=== PATIENT | female | born 1950 | race Caucasian/White ===

== ENCOUNTER 2019-07-01 09:37 | Observation (INO) | payer MEDICARE, OTHER ==
[2019-07-01] MEDS ORDERED: SODIUM CHLORIDE 0.9% 500 ML 500 ML IV STA (09:40)
[2019-07-01] MEDS ORDERED: SODIUM CHLORIDE 0.9% 1,000 ML IV ONE (09:46)
[2019-07-01 10:09] LABS: Glucose,Whole Blood 109 mg/dL (75-99)
[2019-07-01 10:18] LABS: Basophils # (A) 0.1 k/uL (0-0.2); Basophils % (A) 1 %; Eosinophils # (A) 0.2 k/uL (0-0.7); Eosinophils % (A) 3 %; HCT 46.3 % (34.0-46.0); HGB 15.2 gm/dL (11.4-16.0); Lymphocytes # (A) 3.1 k/uL (1.0-4.8); Lymphocytes % (A) 33 %; MCH 27.7 pg (25.0-35.0); MCHC 32.7 g/dL (31.0-37.0); MCV 84.7 fL (80.0-100.0); Mean Platelet Volume 7.2; Monocytes # (A) 0.5 k/uL (0-1.0); Monocytes % (A) 6 %; Neutrophils # (A) 5.2 k/uL (1.3-7.7); Neutrophils % (A) 56 %; Platelet Count 333 k/uL (150-450); RBC 5.47 m/uL (3.80-5.40); RDW 12.8 % (11.5-15.5); WBC 9.2 k/uL (3.8-10.6)
--- NOTE | 2019-07-01 10:27 | XR ---
EXAMINATION TYPE: XR chest 2V DATE OF EXAM: 07/01/2019 COMPARISON: 03/02/2015 HISTORY: Shortness of breath and dizziness TECHNIQUE: Frontal and lateral views of the chest are obtained. FINDINGS: There is no focal air space opacity, pleural effusion, or pneumothorax seen. The cardiac silhouette size is within normal limits. The osseous structures are intact. Cholecystectomy clips a re seen. Minimal degenerative change of the spine. Surgical clips are seen within the left breast. IMPRESSION: No acute cardiopulmonary process.
[2019-07-01 10:33] LABS: Partial Thromboplastin Time 22.1 sec (22.0-30.0); Prothrombin Time 10.4 sec (9.0-12.0)
[2019-07-01 10:35] LABS: Albumin 4.6 g/dL (3.5-5.0); Calcium 10.5 mg/dL (8.4-10.2); Phosphorus 3.6 mg/dL (2.5-4.5); Potassium 4.5 mmol/L (3.5-5.1); Total Bilirubin 0.9 mg/dL (0.2-1.3); Total Protein 7.7 g/dL (6.3-8.2)
[2019-07-01 11:02] VITALS: RESP 18
[2019-07-01] MEDS ORDERED: NALOXONE 0.4 MG/ML 1 ML VIAL IV PRN (11:41)
--- NOTE | 2019-07-01 11:42 | ED ---
Weakness HPI - General Chief complaint: Weakness Stated complaint: weakness Time Seen by Provider: 07/01/19 09:40 Source: patient Mode of arrival: ambulatory Limitations: no limitations - History of Present Illness Initial comments: 68-year-old female with history of breast cancer in remission presenting today for chief complaint of generalized weakness episode of syncope. Patient states that she was out helping load a truck when she felt really lightheaded and sat in the car hospital since she was syncopal episode he denies any convulsions. Patient had a chest pain but states she was slightly short of breath when she had the weakness just prior to the syncope she states that has resolved. Patient denies any leg swelling or hemoptysis nausea vomiting epigastric jaw or arm pain. Patient denies experiencing this before. Patient states she did not have anything to drink all day. Patient denies any other complaints denies any fevers denies any dysuria urgency frequency or recent infections. Remaining review of systems negative upon arrival patient appears well no signs of acute distress - Related Data Home Medications Medication Instructions Recorded Confirmed Simvastatin [Zocor] 20 mg PO HS 07/01/19 07/01/19 Allergies Allergy/AdvReac Type Severity Reaction Status Date / Time bee venom protein (honey bee) Allergy Anaphylaxis Verified 07/01/19 12:30 Review of Systems ROS Statement: Those systems with pertinent positive or pertinent negative responses have been documented in the HPI. ROS Other: All systems not noted in ROS Statement are negative. Past Medical History Past Medical History: Cancer Additional Past Medical History / Comment(s): Do not use left arm for IV or BP- left breast CA with lumpectomy and radiation and chemo. History of Any Multi-Drug Resistant Organisms: None Reported Past Surgical History: Breast Surgery, Tonsillectomy Additional Past Surgical History / Comment(s): L breast lumpectomy 2002. Additional Past Anesthesia/Blood Transfusion Reaction / Comment(s): Pt has never recieved blood. Past Psychological History: No Psychological Hx Reported Smoking Status: Former smoker Past Alcohol Use History: Occasional Past Drug Use History: None Reported - Past Family History Father Family Medical History: Myocardial Infarction ([place]) Additional Family Medical History / Comment(s): Father had a [place] in his 60's. He from a post op hip infection at age 73 yrs. no gallbladder disease Mother Family Medical History: Eye Disorder, Hypertension Additional Family Medical History / Comment(s): Mother had glaucoma. She at age 82 yrs. General Exam - General Exam Comments Initial Comments: General: The patient is awake and alert, in no distress Eye: +3 mm pupils are equal, round and reactive to light, extra-ocular movements are intact. No nystagmus. There is normal conjunctiva bilaterally. No signs of icterus. Ears, nose, mouth and throat: There are moist mucous membranes and no oral lesions. Neck: The neck is supple, there is no tenderness or JVD. Cardiovascular: There is a regular rate and rhythm. No murmur, rub or gallop is appreciated. Respiratory: Lungs are clear to auscultation, respirations are non-labored, breath sounds are equal. No wheezes, stridor, rales, or rhonchi. Gastrointestinal: Soft, non-distended, non-tender abdomen without masses or organomegaly noted. There is no rebound or guarding present. No pulsatile masses Musculoskeletal: Normal ROM, no tenderness. Strength 5/5. Sensation intact. Radial and DP pulses equal bilaterally 2+. Neurological: A&O x 3. CN II-XII intact grossly, There are no obvious motor or sensory deficits. Coordination appears grossly intact. Speech is normal. Skin: Skin is warm and dry and no rashes or lesions are noted. No LE edema. Psychiatric: Cooperative, appropriate mood & affect, normal judgment. Limitations: no limitations Course Vital Signs 07/01/19 07/01/19 07/01/19 09:37 09:49 10:00 Temperature 95 F L 97.7 F Pulse Rate 56 L 59 L 53 L Respiratory 20 16 16 Rate Blood Pressure 73/48 116/66 116/66 O2 Sat by Pulse 98 92 L 93 L Oximetry 07/01/19 07/01/19 07/01/19 11:01 11:56 12:47 Temperature 97.7 F Pulse Rate 57 L 75 75 Respiratory 18 18 18 Rate Blood Pressure 116/90 123/70 123/70 O2 Sat by Pulse 96 97 97 Oximetry EKG Findings - EKG Comments: EKG Findings:: Ventricular rate 52 bpm, NM interval 162 ms, QRS duration 72 ms, QT/QTC 432/411 milliseconds. This is sinus bradycardia. No ST elevation or depression. No obvious signs of acute ischemia. Medical Decision Making - Medical Decision Making 68-year-old female presenting today for chief complaint of generalized weakness, syncope. Patient was working outside when she felt weak and then had a syncopal episode while sitting down in the car per . No seizure activity. No focal neurological deficits on physical examination. Patient has no obvious murmur no lower external swelling or secondary signs of acute heart failure. Lungs clear. No vascular congestion on chest x-ray. Troponin negative. Patient does not have tachycardia and of current shortness of breath. No calf swelling. Given patient's age her presentation with hypotension, I feel inpatient observation and echo are appropriate at this time. patient will be admitted for cardiology consultation. Patient agreeable to admission. Spoke with Dr. Bach who is agreeable to admission and spoke with admitting provider. - Lab Data Result diagrams: 07/01/19 09:50 07/01/19 09:50 Lab Results 07/01/19 07/01/19 07/01/19 Range/Units 09:50 09:50 09:50 WBC 9.2 (3.8-10.6) k/uL RBC 5.47 H (3.80-5.40) m/uL Hgb 15.2 (11.4-16.0) gm/dL Hct 46.3 H (34.0-46.0) % MCV 84.7 (80.0-100.0) fL MCH 27.7 (25.0-35.0) pg MCHC 32.7 (31.0-37.0) g/dL RDW 12.8 (11.5-15.5) % Plt Count 333 (150-450) k/uL Neutrophils % 56 % Lymphocytes % 33 % Monocytes % 6 % Eosinophils % 3 % Basophils % 1 % Neutrophils # 5.2 (1.3-7.7) k/uL Lymphocytes # 3.1 (1.0-4.8) k/uL Monocytes # 0.5 (0-1.0) k/uL Eosinophils # 0.2 (0-0.7) k/uL Basophils # 0.1 (0-0.2) k/uL PT 10.4 (9.0-12.0) sec INR 1.0 (<1.2) APTT 22.1 (22.0-30.0) sec Sodium (137-145) mmol/L Potassium (3.5-5.1) mmol/L Chloride (98-107) mmol/L Carbon Dioxide (22-30) mmol/L Anion Gap mmol/L BUN (7-17) mg/dL Creatinine (0.52-1.04) mg/dL Est GFR (CKD-EPI)AfAm (>60 ml/min/1.73 sqM) Est GFR (CKD-EPI)NonAf (>60 ml/min/1.73 sqM) Glucose (74-99) mg/dL POC Glucose (mg/dL) (75-99) mg/dL POC Glu Pony Ride Attendant ID Plasma Lactic Acid Bereket (0.7-2.0) mmol/L Calcium (8.4-10.2) mg/dL Phosphorus (2.5-4.5) mg/dL Magnesium (1.6-2.3) mg/dL Total Bilirubin (0.2-1.3) mg/dL AST (14-36) U/L ALT (4-34) U/L Alkaline Phosphatase (38-126) U/L Troponin I (0.000-0.034) ng/mL NT-Pro-B Natriuret Pep pg/mL Total Protein (6.3-8.2) g/dL Albumin (3.5-5.0) g/dL Urine Color Urine Appearance (Clear) Urine pH (5.0-8.0) Ur Specific Polo (1.001-1.035) Urine Protein (Negative) Urine Glucose (UA) (Negative) Urine Ketones (Negative) Urine Blood (Negative) Urine Nitrite (Negative) Urine Bilirubin (Negative) Urine Urobilinogen (<2.0) mg/dL Ur Leukocyte Esterase (Negative) Urine RBC (0-5) /hpf Urine WBC (0-5) /hpf Ur Squamous Epith Cells (0-4) /hpf Urine Bacteria (None) /hpf Urine Mucus (None) /hpf Influenza Type A RNA Not Detected (Not Detectd) Influenza Type B (PCR) Not Detected (Not Detectd) 07/01/19 07/01/19 07/01/19 Range/Units 09:50 09:50 09:50 WBC (3.8-10.6) k/uL RBC (3.80-5.40) m/uL Hgb (11.4-16.0) gm/dL Hct (34.0-46.0) % MCV (80.0-100.0) fL MCH (25.0-35.0) pg MCHC (31.0-37.0) g/dL RDW (11.5-15.5) % Plt Count (150-450) k/uL Neutrophils % % Lymphocytes % % Monocytes % % Eosinophils % % Basophils % % Neutrophils # (1.3-7.7) k/uL Lymphocytes # (1.0-4.8) k/uL Monocytes # (0-1.0) k/uL Eosinophils # (0-0.7) k/uL Basophils # (0-0.2) k/uL PT (9.0-12.0) sec INR (<1.2) APTT (22.0-30.0) sec Sodium 138 (137-145) mmol/L Potassium 4.5 (3.5-5.1) mmol/L Chloride 103 (98-107) mmol/L Carbon Dioxide 24 (22-30) mmol/L Anion Gap 11 mmol/L BUN 10 (7-17) mg/dL Creatinine 0.86 (0.52-1.04) mg/dL Est GFR (CKD-EPI)AfAm 82 (>60 ml/min/1.73 sqM) Est GFR (CKD-EPI)NonAf 71 (>60 ml/min/1.73 sqM) Glucose 112 H (74-99) mg/dL POC Glucose (mg/dL) (75-99) mg/dL POC Glu Pony Ride Attendant ID Plasma Lactic Acid Bereket 1.6 (0.7-2.0) mmol/L Calcium 10.5 H (8.4-10.2) mg/dL Phosphorus 3.6 (2.5-4.5) mg/dL Magnesium 2.0 (1.6-2.3) mg/dL Total Bilirubin 0.9 (0.2-1.3) mg/dL AST 24 (14-36) U/L ALT 14 (4-34) U/L Alkaline Phosphatase 86 (38-126) U/L Troponin I <0.012 (0.000-0.034) ng/mL NT-Pro-B Natriuret Pep pg/mL Total Protein 7.7 (6.3-8.2) g/dL Albumin 4.6 (3.5-5.0) g/dL Urine Color Urine Appearance (Clear) Urine pH (5.0-8.0) Ur Specific Polo (1.001-1.035) Urine Protein (Negative) Urine Glucose (UA) (Negative) Urine Ketones (Negative) Urine Blood (Negative) Urine Nitrite (Negative) Urine Bilirubin (Negative) Urine Urobilinogen (<2.0) mg/dL Ur Leukocyte Esterase (Negative) Urine RBC (0-5) /hpf Urine WBC (0-5) /hpf Ur Squamous Epith Cells (0-4) /hpf Urine Bacteria (None) /hpf Urine Mucus (None) /hpf Influenza Type A RNA (Not Detectd) Influenza Type B (PCR) (Not Detectd) 07/01/19 07/01/19 07/01/19 Range/Units 09:50 10:06 12:15 WBC (3.8-10.6) k/uL RBC (3.80-5.40) m/uL Hgb (11.4-16.0) gm/dL Hct (34.0-46.0) % MCV (80.0-100.0) fL MCH (25.0-35.0) pg MCHC (31.0-37.0) g/dL RDW (11.5-15.5) % Plt Count (150-450) k/uL Neutrophils % % Lymphocytes % % Monocytes % % Eosinophils % % Basophils % % Neutrophils # (1.3-7.7) k/uL Lymphocytes # (1.0-4.8) k/uL Monocytes # (0-1.0) k/uL Eosinophils # (0-0.7) k/uL Basophils # (0-0.2) k/uL PT (9.0-12.0) sec INR (<1.2) APTT (22.0-30.0) sec Sodium (137-145) mmol/L Potassium (3.5-5.1) mmol/L Chloride (98-107) mmol/L Carbon Dioxide (22-30) mmol/L Anion Gap mmol/L BUN (7-17) mg/dL Creatinine (0.52-1.04) mg/dL Est GFR (CKD-EPI)AfAm (>60 ml/min/1.73 sqM) Est GFR (CKD-EPI)NonAf (>60 ml/min/1.73 sqM) Glucose (74-99) mg/dL POC Glucose (mg/dL) 109 H (75-99) mg/dL POC Glu Pony Ride Attendant ID Lori Shaikh Plasma Lactic Acid Bereket (0.7-2.0) mmol/L Calcium (8.4-10.2) mg/dL Phosphorus (2.5-4.5) mg/dL Magnesium (1.6-2.3) mg/dL Total Bilirubin (0.2-1.3) mg/dL AST (14-36) U/L ALT (4-34) U/L Alkaline Phosphatase (38-126) U/L Troponin I (0.000-0.034) ng/mL NT-Pro-B Natriuret Pep 104 pg/mL Total Protein (6.3-8.2) g/dL Albumin (3.5-5.0) g/dL Urine Color Light Yellow Urine Appearance Clear (Clear) Urine pH 6.5 (5.0-8.0) Ur Specific Polo 1.008 (1.001-1.035) Urine Protein Negative (Negative) Urine Glucose (UA) Negative (Negative) Urine Ketones Negative (Negative) Urine Blood Negative (Negative) Urine Nitrite Negative (Negative) Urine Bilirubin Negative (Negative) Urine Urobilinogen <2.0 (<2.0) mg/dL Ur Leukocyte Esterase Large H (Negative) Urine RBC 1 (0-5) /hpf Urine WBC 13 H (0-5) /hpf Ur Squamous Epith Cells 5 H (0-4) /hpf Urine Bacteria Occasional H (None) /hpf Urine Mucus Rare H (None) /hpf Influenza Type A RNA (Not Detectd) Influenza Type B (PCR) (Not Detectd) Disposition Clinical Impression: Syncope, Hypotension, Generalized weakness Disposition: ADMITTED IP TO THIS HOSP Condition: Stable Is patient prescribed a controlled substance at d/c from ED?: No Time of Disposition: 11:41 Decision to Admit Reason: Admit from EC Decision Date: 07/01/19 Decision Time: 11:41
[2019-07-01] MEDS: SODIUM CHLORIDE 0.9% 1,000 ML IV SCH (11:58)
[2019-07-01 12:56] LABS: Appearance,Urine Clear (Clear); Bacteria,Urine Occasional /hpf; Bilirubin,Urine Negative (Negative); Blood,Urine Negative (Negative); Color,Urine Light Yellow; Glucose,Urine (UA) Negative (Negative); Ketones,Urine Negative (Negative); Leukocyte Esterase,Urine Large (Negative); Mucus,Urine Rare /hpf; Nitrite,Urine Negative (Negative); PH, Urine 6.5 (5.0-8.0); Protein,Urine Negative (Negative); RBC,Urine 1 /hpf (0-5); Specific Gravity,Urine 1.008 (1.001-1.035); Squamous Epithelial Cell,Urine 5 /hpf (0-4); Urobilinogen,Urine <2.0 mg/dL (<2.0); WBC,Urine 13 /hpf (0-5)
--- NOTE | 2019-07-01 13:04 | P.HPIM ---
History of Present Illness H&P Date: 07/01/19 Chief Complaint: Syncope This is a 68-year-old female patient of Dr. Hicks. Patient presented to the hospital after syncopal episode. Patient reports that she has been driving up from [place] for has been over the past 2 days and was unpacking things at their house when she became lightheaded and decided to sit down car. Patient's then noticed that she had passed out in car for patient's patient was out for 2-3 minutes. Patient denies hitting her head. Patient denies any chest pain or shortness of breath prior to episode patient does have past medical history of breast cancer in 2002 with lumpectomy and chemoradiation. Patient denies any significant history of cardiac conditions including heart attack or a regular rhythm. Patient denies history of blood clots. Influenza negative. BNP 104 troponin negative. Chest x-ray completed showing no acute cardiopulmonary process. At this time patient will be admitted for observation. 2-D echo, carotid Doppler, d-dimer and cardiology consult placed. Patient denies chest pain or shortness breath. Patient denies nausea vomiting diarrhea. Patient denies any urinary burning or frequency Review of Systems Please refer to HPI otherwise unremarkable Past Medical History Past Medical History: Cancer, GERD/Reflux, Hyperlipidemia, Syncope Additional Past Medical History / Comment(s): Do not use left arm for IV or BP- left breast CA with lumpectomy and radiation and chemo, diverticulitis with abscess. History of Any Multi-Drug Resistant Organisms: None Reported Past Surgical History: Breast Surgery, Cholecystectomy, Tonsillectomy Additional Past Surgical History / Comment(s): L breast lumpectomy 2002, colonoscopy. Past Anesthesia/Blood Transfusion Reactions: Motion Sickness Additional Past Anesthesia/Blood Transfusion Reaction / Comment(s): Pt has never recieved blood. Smoking Status: Former smoker - Past Family History Father Family Medical History: Myocardial Infarction ([place]) Additional Family Medical History / Comment(s): Father had a [place] in his 60's. He from a post op hip infection at age 73 yrs. no gallbladder disease Mother Family Medical History: Eye Disorder, Hypertension Additional Family Medical History / Comment(s): Mother had glaucoma. She at age 82 yrs. Medications and Allergies Home Medications Medication Instructions Recorded Confirmed Type Simvastatin [Zocor] 20 mg PO HS 07/01/19 07/01/19 History Allergies Allergy/AdvReac Type Severity Reaction Status Date / Time bee venom protein (honey bee) Allergy Anaphylaxis Verified 07/01/19 12:30 Physical Exam Vitals: Vital Signs Temp Pulse Resp BP Pulse Ox 07/01/19 12:47 97.7 F 75 18 123/70 97 07/01/19 11:56 75 18 123/70 97 07/01/19 11:01 57 L 18 116/90 96 07/01/19 10:00 53 L 16 116/66 93 L 07/01/19 09:49 97.7 F 59 L 16 116/66 92 L 07/01/19 09:37 95 F L 56 L 20 73/48 98 Intake and Output 06/30/19 07/01/19 07/01/19 22:59 06:59 14:59 Other: Weight 72.575 kg Head normocephalic Neck supple Lungs clear to auscultation bilaterally no wheezing or crackles Heart regular rate and rhythm S1-S2, no rub or gallop Abdomen is soft nontender nondistended positive bowel sounds no hepatosplenomegaly Extremities no edema Neuro alert and orientated to 3 Results CBC & Chem 7: 07/01/19 09:50 07/01/19 09:50 Labs: Abnormal Lab Results - Last 24 Hours (Table) 07/01/19 07/01/19 07/01/19 Range/Units 09:50 09:50 10:06 RBC 5.47 H (3.80-5.40) m/uL Hct 46.3 H (34.0-46.0) % Glucose 112 H (74-99) mg/dL POC Glucose (mg/dL) 109 H (75-99) mg/dL Calcium 10.5 H (8.4-10.2) mg/dL Thrombosis Risk Factor Assmnt - Choose All That Apply Any of the Below Risk Factors Present?: Yes Other Risk Factors: Yes Each Risk Factor Represents 2 Points: Age 61-74 years, Malignancy Other congenital or acquired thrombophilia - If yes, enter type in comment: No Thrombosis Risk Factor Assessment Total Risk Factor Score: 4 Thrombosis Risk Factor Assessment Level: Moderate Risk Assessment and Plan Assessment: 1. Syncopal episode. Chest x-ray negative. 2-D echo, carotid Doppler ultrasound, d-dimer, serial troponins and cardiology consult placed 2. History of breast cancer 2002 with lumpectomy chemoradiation 3. Hyperlipidemia. Patient maintained on statin 4. Ex-smoker DVT prophylaxis Lovenox. GI prophylaxis Pepcid Time with Patient: Greater than 30 (Greater than 60% of the total time spent in counseling and coordination of care. I performed an examination of the patient and discussed their management with the Nurse Practitioner. I have reviewed the Nurse Practitioner's notes and agree with the documented findings and plan of care)
--- NOTE | 2019-07-01 14:26 | US ---
EXAMINATION TYPE: US carotid duplex BILAT DATE OF EXAM: 07/01/2019 COMPARISON: NONE CLINICAL HISTORY: syncopal episode. EXAM MEASUREMENTS: RIGHT: Peak Systolic Velocity (PSV) cm/sec ----- Right CCA: 69.1 ----- Right ICA: 70.7 ----- Right ECA: 77.5 ICA/CCA ratio: 1.0 RIGHT: End Diastole cm/sec ----- Right CCA: 17.5 ----- Right ICA: 23.5 ----- Right ECA: 11.3 LEFT: Peak Systolic Velocity (PSV) cm/sec ----- Left CCA: 77.2 ----- Left ICA: 67.2 ----- Left ECA: 65.7 ICA/CCA ratio: 0.9 LEFT: End Diastole cm/sec ----- Left CCA: 20.6 ----- Left ICA: 18.1 ----- Left ECA: 22.8 VERTEBRALS (direction of flow): Right Vertebral: Antegrade Left Vertebral: Antegrade Rhythm: Normal Mild atherosclerotic changes. No significant velocity elevations. IMPRESSION: Mild degree of grayscale atheromatous plaquing with no sonographically evident hemodynam ically significant stenosis within either visualized carotid arterial system. Criteria for Assigning % of Stenosis / Diameter reduction (Estimation based on the indirect measurements of the internal carotid artery velocities (ICA PSV). 1. Normal (no stenosis)=ICA PSV < 125 cm/s: ratio < 2.0: ICA EDV<40 cm/s. 2. Less than 50% stenosis=ICA PSV < 125 cm/s: ratio < 2.0: ICA EDV<40 cm/s. 3. 50 to 69% stenosis=ICA PSV of 125 to 230 cm/s: ration 2.0 ? 4.0: ICA EDV 40-100 cm/s. 4. Greater than 70% stenosis to near occlusion= ICA PSV > 230 cm/s: ratio > 4.0: ICA EDV > 100 cm/s. 5. Near occlusion= ICA PSV velocities may be low or undetectable: variable ratio and ICA EDV. 6. Total occlusion=unable to detect flow.
[2019-07-01] MEDS ORDERED: ATORVASTATIN 10 MG TAB PO SCH (21:00)
[2019-07-02] MEDS: SODIUM CHLORIDE 0.9% 1,000 ML IV SCH ×2 (06:31)
[2019-07-02 07:12] LABS: Basophils % (A) 1 %; Eosinophils # (A) 0.1 k/uL (0-0.7); Eosinophils % (A) 2 %; HCT 42.2 % (34.0-46.0); HGB 13.9 gm/dL (11.4-16.0); Lymphocytes # (A) 1.6 k/uL (1.0-4.8); Lymphocytes % (A) 19 %; MCH 28.1 pg (25.0-35.0); MCV 85.2 fL (80.0-100.0); Monocytes # (A) 0.5 k/uL (0-1.0); Monocytes % (A) 5 %; Neutrophils # (A) 6.2 k/uL (1.3-7.7); Neutrophils % (A) 73 %; Platelet Count 238 k/uL (150-450); RBC 4.95 m/uL (3.80-5.40); RDW 12.8 % (11.5-15.5); WBC 8.5 k/uL (3.8-10.6)
[2019-07-02 07:32] LABS: ALT 12 U/L (4-34); AST 30 U/L (14-36); African American GFR (CKD) >90 (>60 ml/min/1.73 sqM); Albumin 3.7 g/dL (3.5-5.0); Alkaline Phosphatase 75 U/L (38-126); Anion Gap 8 mmol/L; Blood Urea Nitrogen 6 mg/dL (7-17); Calcium 9.5 mg/dL (8.4-10.2); Carbon Dioxide 21 mmol/L (22-30); Chloride 111 mmol/L (98-107); Glucose 95 mg/dL (74-99); Non-African American GFR(CKD) >90 (>60 ml/min/1.73 sqM); Potassium 4.1 mmol/L (3.5-5.1); Sodium 140 mmol/L (137-145); Total Bilirubin 1.1 mg/dL (0.2-1.3); Total Protein 6.6 g/dL (6.3-8.2)
[2019-07-02] MEDS ORDERED: FAMOTIDINE 20 MG TAB PO SCH (09:00)
[2019-07-02] MEDS ORDERED: ENOXAPARIN 40 MG/0.4 ML SYRINGE SQ SCH (09:00)
[2019-07-02 12:18] VITALS: BP 171/78; PULSE 67; TEMP 98.1
--- NOTE | 2019-07-02 13:01 | P.CRDCN ---
History of Present Illness Consult date: 07/02/19 Consult reason: sycope History of present illness: The patient is a 68-year-old female with no significant past medical history, who recently presented to the emergency room after experiencing a syncopal episode. She states she recently completed a 2 day travel back from [place] with her . She states yesterday she was unloading her trailer into her storage unit when she became cold and tired. She decided to stop and rest in her vehicle. When she sat down in the passenger seat, she states she became dizzy and fatigued, with narrowed vision. Her found her slumped over in the passenger she and she would not arise with stimulation. He decided to proceed across town to the hospital. He states she was completely unconscious for at least several minutes, however she began to arouse with the being in the car. She states she does not remember any of the car ride and does not consider regaining consciousness until ER staff assisted her out of her vehicle. She does state that she did not eat prior to this that day. On arrival EKG showed sinus bradycardia with a rate of [address] or T-wave changes. Troponins n egative. Chest x-ray was negative for acute process. Blood pressure on arrival was 73/48, which quickly improved to 116/66. On examination patient is resting comfortably in bed this morning. She states she denies any additional episodes of dizziness and lightheadedness. She also denies any chest pain, chest pressure, dyspnea, palpitations, or lower extremity edema. PAST MEDICAL HISTORY: Breast cancer REVIEW OF SYSTEMS: No fever or chills. No cough or expectoration. No diaphoresis. Patient denies headache, dizziness, blurred vision, double vision. Patient denies any stomach discomfort. No nausea, vomiting. No hematochezia. No hematemesis. Denies any black stools or blood in his stools. Denies dysuria or hematuria. No muscle weakness or numbness. PHYSICAL EXAMINATION: This is a 68-year-old female in no apparent distress at the time of my examination. HEENT: Head is atraumatic, normocephalic. Pupils are equal, round. Sclerae anicteric. Conjunctivae are clear. Mucous membranes of the mouth are moist. Neck is supple. There is no jugular venous distention. No carotid bruit is heard. CHEST EXAMINATION: Lungs are clear to auscultation. No chest wall tenderness is noted on palpation or with deep breathing. HEART EXAMINATION: Heart regular rate and rhythm. S1, S2 heard. No murmurs, gallops or rub. ABDOMEN: Soft, nontender. Bowel sounds are heard. No organomegaly noted. EXTREMITIES: 2+ peripheral pulses with no evidence of peripheral edema and no calf tenderness noted. NEUROLOGIC EXAMINATION: Patient is awake, alert and oriented x3. LABORATORY DATA: WBC 8.5 hemoglobin 13.9, hematocrit 42.2, platelet 238, sodium 140, potassium 4.1, chloride 111, BUN 6, creatinine 0.67, AST 30, ALT 12, troponins negative 3, d-dimer 0.56 FINAL ASSESSMENT AND PLAN: #1 syncopal episode, likely hypotension #2 hypertension, new onset PLAN: We will clear the patient for discharge and follow-up outpatient. Past Medical History Past Medical History: Cancer Additional Past Medical History / Comment(s): Do not use left arm for IV or BP- left breast CA with lumpectomy and radiation and chemo. History of Any Multi-Drug Resistant Organisms: None Reported Past Surgical History: Breast Surgery, Tonsillectomy Additional Past Surgical History / Comment(s): L breast lumpectomy 2002. Past Anesthesia/Blood Transfusion Reactions: Motion Sickness Additional Past Anesthesia/Blood Transfusion Reaction / Comment(s): Pt has never recieved blood. Past Psychological History: No Psychological Hx Reported Smoking Status: Former smoker Past Alcohol Use History: Occasional Past Drug Use History: None Reported - Past Family History Father Family Medical History: Myocardial Infarction ([place]) Additional Family Medical History / Comment(s): Father had a [place] in his 60's. He from a post op hip infection at age 73 yrs. no gallbladder disease Mother Family Medical History: Eye Disorder, Hypertension Additional Family Medical History / Comment(s): Mother had glaucoma. She at age 82 yrs. Medications and Allergies Home Medications Medication Instructions Recorded Confirmed Type Simvastatin [Zocor] 20 mg PO HS 07/01/19 07/01/19 History Allergies Allergy/AdvReac Type Severity Reaction Status Date / Time bee venom protein (honey bee) Allergy Anaphylaxis Verified 07/01/19 12:30 Physical Exam Vitals: Vital Signs Temp Pulse Resp BP Pulse Ox 07/02/19 12:00 98.1 F 67 18 171/78 97 07/02/19 08:46 98.9 F 84 18 162/88 97 07/02/19 04:00 98.4 F 69 16 147/81 98 07/02/19 00:00 98.2 F 63 16 121/75 97 07/01/19 20:00 98.2 F 75 16 117/71 96 07/01/19 16:00 98 F 63 18 135/77 98 07/01/19 13:10 98.2 F 60 136/77 98 Intake and Output 07/01/19 07/02/19 07/02/19 22:59 06:59 14:59 Intake Total 1020 600 970 Output Total 475 Balance 1020 125 970 Intake: Intake, IV Titration 480 600 770 Amount Sodium Chloride 0.9% 1, 480 600 720 000 ml @ 120 mls/hr IV . Q8H20M [facility] Rx#:[id number] cefTRIAXone 1 gm In 50 Sodium Chloride 0.9% 50 ml @ 100 mls/hr IVPB Q24HR [facility] Rx#:[id number] Oral 540 200 Output: Urine 475 Other: Voiding Method Toilet # Voids 5 Weight 72.9 kg Results 07/02/19 07:00 07/02/19 07:00 Cardiac Enzymes 07/01/19 07/02/19 07/02/19 Range/Units 12:40 01:30 07:00 AST 30 (14-36) U/L Troponin I <0.012 <0.012 (0.000-0.034) ng/mL 07/02/19 Range/Units 07:00 AST (14-36) U/L Troponin I <0.012 (0.000-0.034) ng/mL CBC 07/02/19 Range/Units 07:00 WBC 8.5 (3.8-10.6) k/uL RBC 4.95 (3.80-5.40) m/uL Hgb 13.9 (11.4-16.0) gm/dL Hct 42.2 (34.0-46.0) % Plt Count 238 (150-450) k/uL Comprehensive Metabolic Panel 07/02/19 Range/Units 07:00 Sodium 140 (137-145) mmol/L Potassium 4.1 (3.5-5.1) mmol/L Chloride 111 H (98-107) mmol/L Carbon Dioxide 21 L (22-30) mmol/L BUN 6 L (7-17) mg/dL Creatinine 0.67 (0.52-1.04) mg/dL Glucose 95 (74-99) mg/dL Calcium 9.5 (8.4-10.2) mg/dL AST 30 (14-36) U/L ALT 12 (4-34) U/L Alkaline Phosphatase 75 (38-126) U/L Total Protein 6.6 (6.3-8.2) g/dL Albumin 3.7 (3.5-5.0) g/dL Current Medications Generic Name Dose Route Start Last Admin Trade Name Freq PRN Reason Stop Dose Admin Atorvastatin Calcium 10 mg 07/01/19 21:00 07/01/19 20:32 Lipitor PO 10 mg HS WILLIAM Administration Enoxaparin Sodium 40 mg 07/02/19 09:00 Lovenox SQ DAILY WILLIAM Famotidine 20 mg 07/02/19 09:00 07/02/19 08:53 Pepcid PO 20 mg DAILY WILLIAM Administration Sodium Chloride 1,000 mls @ 120 mls/hr 07/01/19 11:45 07/02/19 06:31 Saline 0.9% IV 120 mls/hr .Q8H20M WILLIAM Administration Ceftriaxone Sodium 1 gm/ 50 mls @ 100 mls/hr 07/02/19 09:00 07/02/19 08:53 Sodium Chloride IVPB 100 mls/hr Q24HR WILLIAM Administration Naloxone HCl 0.2 mg 07/01/19 11:41 Narcan IV Q2M PRN Opioid Reversal Intake and Output 07/01/19 07/02/19 07/02/19 22:59 06:59 14:59 Intake Total 1020 600 970 Output Total 475 Balance 1020 125 970 Intake: Intake, IV Titration 480 600 770 Amount Sodium Chloride 0.9% 1, 480 600 720 000 ml @ 120 mls/hr IV . Q8H20M WILLIAM Rx#:[id number] cefTRIAXone 1 gm In 50 Sodium Chloride 0.9% 50 ml @ 100 mls/hr IVPB Q24HR [facility] Rx#:[id number] Oral 540 200 Output: Urine 475 Other: Voiding Method Toilet # Voids 5 Weight 72.9 kg 07/02/19 07:00 07/02/19 07:00
--- NOTE | 2019-07-02 15:55 | P.DS ---
Providers Date of admission: 07/01/19 12:34 Expected date of discharge: 07/02/19 Attending physician: Leslie Estrada Consults: 07/01/19 11:42 Consult Physician Routine Consulting Provider: Lonnie Wallace Consult Reason/Comments: syncope Do you want consulting provider notified?: Yes Primary care physician: Cheyenne Hicks Hospital Course: Diagnosis on discharge: 1. Syncopal episode. Chest x-ray negative. 2-D echo, carotid Doppler ultrasound, d-dimer, serial troponins and cardiology consult placed 2. History of breast cancer 2002 with lumpectomy chemoradiation 3. Hyperlipidemia. Patient maintained on statin 4. Ex-smoker Hospital course: This is a 68-year-old female patient of Dr. Hicks. Patient presented to the hospital after syncopal episode. Patient reports that she has been driving up from [place] for has been over the past 2 days and was unpacking things at their house when she became lightheaded and decided to sit down car. Patient's then noticed that she had passed out in car for patient's patient was out for 2-3 minutes. Patient denies hitting her head. Patient den ies any chest pain or shortness of breath prior to episode patient does have past medical history of breast cancer in 2002 with lumpectomy and chemoradiation. Patient denies any significant history of cardiac conditions including heart attack or a regular rhythm. Patient denies history of blood clots. Influenza negative. BNP 104 troponin negative. Chest x-ray completed showing no acute cardiopulmonary process. At this time patient will be admitted for observation. 2-D echo, carotid Doppler, d-dimer and cardiology consult placed. Patient denies chest pain or shortness breath. Patient denies nausea vomiting diarrhea. Patient denies any urinary burning or frequency. On 07/02/2019 patient was seen and examined on the medical floor she is alert and oriented 3 in no apparent distress she has been ambulating without difficulty and without any dizziness. There is no fever or chills no headache no chest pain no shortness of breath no cough no nausea or vomiting no abdominal pain no diarrhea and no urinary symptoms. Test results discussed in details with patient, she was evaluated by pulmonary and cardiology and was cleared for discharge, blood pressure is slightly elevated and this has to be monitored as outpatient to assess need for any blood pressure medications as outpatient. Patient has evidence of UTI she received IV Rocephin during this admission she was given a prescription for Ceftin 500 mg twice daily for 3 more days. Follow-up with primary care physician in 2-3 days Patient Condition at Discharge: Stable Plan - Discharge Summary Discharge Rx Participant: No New Discharge Prescriptions: New Cefuroxime Axetil [Ceftin] 500 mg PO BID 3 Days #6 tab Continue Simvastatin [Zocor] 20 mg PO HS Discharge Medication List Simvastatin [Zocor] 20 mg PO HS 07/01/19 [History] Cefuroxime Axetil [Ceftin] 500 mg PO BID 3 Days #6 tab 07/02/19 [Rx] Follow up Appointment(s)/Referral(s): Marquise Izquierdo MD [STAFF PHYSICIAN] - 07/22/19 8:30 am (Follow-up with Dr. Izquierdo/Marium Alonso/Cami Cam For Thursday 8:30 AM) Cheyenne Hicks MD [Primary Care Provider] - 1-2 days (Call on Thursday to make appointment please.) Patient Instructions/Handouts: Urinary Tract Infection in Women (DC) Activity/Diet/Wound Care/Special Instructions: Limited activity until seen by PCP/earth science teacher. Diet as tolerated Discharge Disposition: HOME SELF-CARE
--- NOTE | 2019-07-03 08:01 | ECHOF ---
Referral Reason:syncopal episode MEASUREMENTS -------- HEIGHT: 170.2 cm WEIGHT: 72.6 kg BP: 123/70 IVSd: 1.1 cm (0.6 - 1.1) LVIDd: 3.6 cm (3.9 - 5.3) LVPWd: 1.0 cm (0.6 - 1.1) IVSs: 1.5 cm LVIDs: 2.3 cm LVPWs: 1.6 cm RVIDd: 3.9 cm (< 3.3) LAESV Index (A-L): 20.19 ml/m Ao Diam: 2.5 cm (2.0 - 3.7) AV Cusp: 1.8 cm (1.5 - 2.6) EPSS: 0.2 cm MV E Warner: 0.84 m/s MV DecT: 171 ms MV A Warner: 1.09 m/s MV E/A Ratio: 0.77 RAP: 5.00 mmHg RVSP: 31.19 mmHg MV EF SLOPE: 48.39 mm/s (70 - 150) MV EXCURSION: 11.53 mm (> 18.000) FINDINGS -------- Sinus rhythm. This was a technically good study. The left ventricular size is normal. Left ventricular wall thickness is normal. There is normal g lobal left ventricular contractility. Overall left ventricular systolic function is normal with, an EF between 55 - 60 %. The diastolic filling pattern is normal for the age of the patient 9.69. The right ventricle is moderately enlarged. Normal LA size by volume 22+/-6 ml/m2. The right atrium is mildly enlarged. Interatrial and interventricular septum intact. The aortic valve is trileaflet and appears structurally normal. There is no evidence of aortic regu rgitation. There is no evidence of aortic stenosis. Mild mitral regurgitation is present. Mild tricuspid regurgitation present. There is no evidence of pulmonary hypertension. The right v entricular systolic pressure, as measured by Doppler, is 31.19mmHg. There is no pulmonic regurgitation present. The aortic root size is normal. Normal inferior vena cava with normal inspiratory collapse consistent with estimated right atrial pre ssure of 5 mmHg. There is no pericardial effusion. CONCLUSIONS -------- 1. Sinus rhythm. 2. This was a technically good study. 3. The left ventricular size is normal. 4. Left ventricular wall thickness is normal. 5. There is normal global left ventricular contractility. 6. Overall left ventricular systolic function is normal with, an EF between 55 - 60 %. 7. The diastolic filling pattern is normal for the age of the patient 9.69 8. The right ventricle is moderately enlarged. 9. Normal LA size by volume 22+/-6 ml/m2. 10. The right atrium is mildly enlarged. 11. Interatrial and interventricular septum intact. 12. The aortic valve is trileaflet and appears structurally normal. 13. There is no evidence of aortic regurgitation. 14. There is no evidence of aortic stenosis. 15. Mild mitral regurgitation is present. 16. Mild tricuspid regurgitation present. 17. There is no evidence of pulmonary hypertension. 18. The right ventricular systolic pressure, as measured by Doppler, is 31.19mmHg. 19. There is no pulmonic regurgitation present. 20. The aortic root size is normal. 21. Normal inferior vena cava with normal inspiratory collapse consistent with estimated right atrial pressure of 5 mmHg. 22. There is no pericardial effusion. STENCIL CUTTER: Mary Jane Ram RDCS
== END 2019-07-02 14:23 | disposition home or self-care (01) ==
LOC: EC 09:37 → 1SOBS 12:34 → 3SCARD 18:29
PROVIDERS: ADMIT Internal Medicine; ATTEND Internal Medicine
DX: R55 Syncope and collapse (principal); R00.1 Bradycardia, unspecified; I08.1 Rheumatic disorders of both mitral and tricuspid valves; E78.5 Hyperlipidemia, unspecified; Z87.891 Personal history of nicotine dependence; K21.9 Gastro-esophageal reflux disease without esophagitis; I95.9 Hypotension, unspecified; Z85.3 Personal history of malignant neoplasm of breast; Z92.21 Personal history of antineoplastic chemotherapy; Z92.3 Personal history of irradiation; Z90.49 Acquired absence of other specified parts of digestive tract; Z82.49 Family history of ischemic heart disease and other diseases of the circulatory system; Z83.511 Family history of glaucoma; Z91.030 Bee allergy status
CPT/HCPCS: 96361 ×2; 96365; 99285; 36415; 93005; 93306; 85379; 83880; 80053 ×2; 83605; 83735; 84100; 84484 ×2; 85025 ×2; 85610; 85730; 81001; 87040; 87086; 87502; 71046; 93880; G0378 ×3; J0696

== ENCOUNTER 2019-09-05 14:04 | Inpatient (IN) | payer MEDICARE, OTHER ==
[2019-09-05] MEDS ORDERED: ONDANSETRON 4 MG/2 ML VIAL IVP STA (14:58)
[2019-09-05] MEDS ORDERED: SODIUM CHLORIDE 0.9% 1,000 ML IV STA (14:58)
[2019-09-05] MEDS ORDERED: PIPERACILLIN-TAZOBACTAM 3.375 GM in SODIUM CHLORIDE 0.9% 100 ML IVPB STA (14:59)
[2019-09-05] MEDS ORDERED: VANCOMYCIN IV PER PHARMACY 1 EACH MISC MISCELLANE PRN (15:00)
--- NOTE | 2019-09-05 15:04 | ED ---
Abdominal Pain HPI - General Source: patient Mode of arrival: ambulatory Limitations: no limitations <Nahid Gabriel - Last Filed: 09/05/19 15:47> <Zora Sweeney - Last Filed: 09/07/19 03:18> - General Chief Complaint: Abdominal Pain Stated Complaint: abnormal CT-sent by Dr. Carrizales Seen by Provider: 09/05/19 14:39 - History of Present Illness Initial Comments: Patient is 69-year-old female with history of diverticulitis presenting to emergency Department with a chief complaint of abdominal pain. Patient reports on and off abdominal pain of left lower quadrant for the last 2 weeks. Patient reports his last night she developed increased discomfort in the left lower abdomen. States it feels like "rolling pain with food". States she went to an urgent care this morning and was given an abdominal CT ordered with contrast. Patient states after the studies are performed, soon after she was informed to return to emergency department as she was diagnosed with diverticulitis, pericolic abscess an acute abdomen. Patient is complaining of mild nausea but no vomiting or diarrhea. States minimal pain because she has not eaten anything. Denies any night sweats fevers or chills. No chest pain shortness of breath and back pain. (Nahid Gabriel) - Related Data Home Medications Medication Instructions Recorded Confirmed Simvastatin [Zocor] 20 mg PO HS 07/01/19 09/05/19 Aspirin/Acetaminophen/Caffeine 1 - 2 tab PO DAILY PRN 09/05/19 09/05/19 [Excedrin Extra Strength Caplet] Calcium Carbonate [Tums] 500 - 1,000 mg PO QID PRN 09/05/19 09/05/19 Ciprofloxacin HCl [Cipro] 500 mg PO Q12H 09/05/19 09/05/19 Ondansetron Odt [Zofran Odt] 8 mg PO Q8H PRN 09/05/19 09/05/19 metroNIDAZOLE [Flagyl] 500 mg PO TID 09/05/19 09/05/19 Allergies Allergy/AdvReac Type Severity Reaction Status Date / Time bee venom protein (honey bee) Allergy Anaphylaxis Verified 09/05/19 15:55 Review of Systems ROS Other: All systems not noted in ROS Statement are negative. <Nahid Gabriel - Last Filed: 09/05/19 15:47> ROS Other: All systems not noted in ROS Statement are negative. <Zora Sweeney Eliseo - Last Filed: 09/07/19 03:18> ROS Statement: Those systems with pertinent positive or pertinent negative responses have been documented in the HPI. Past Medical History Past Medical History: Cancer Additional Past Medical History / Comment(s): Do not use left arm for IV or BP- left breast CA with lumpectomy and radiation and chemo. diverticulitis History of Any Multi-Drug Resistant Organisms: None Reported Past Surgical History: Breast Surgery, Tonsillectomy Additional Past Surgical History / Comment(s): L breast lumpectomy 2002. Past Anesthesia/Blood Transfusion Reactions: Motion Sickness Additional Past Anesthesia/Blood Transfusion Reaction / Comment(s): Pt has never recieved blood. Past Psychological History: No Psychological Hx Reported Smoking Status: Former smoker Past Alcohol Use History: Occasional Past Drug Use History: None Reported - Past Family History Father Family Medical History: Myocardial Infarction ([place]) Additional Family Medical History / Comment(s): Father had a [place] in his 60's. He from a post op hip infection at age 73 yrs. no gallbladder disease Mother Family Medical History: Eye Disorder, Hypertension Additional Family Medical History / Comment(s): Mother had glaucoma. She at age 82 yrs. <Nahid Gabriel - Last Filed: 09/05/19 15:47> General Exam Limitations: no limitations General appearance: alert, in no apparent distress Head exam: Present: atraumatic, normocephalic, normal inspection Eye exam: Present: normal appearance, PERRL, EOMI Pupils: Present: normal accommodation ENT exam: Present: normal exam, normal oropharynx, mucous membranes moist, TM's normal bilaterally, normal external ear exam Neck exam: Present: normal inspection, full ROM Respiratory exam: Present: normal lung sounds bilaterally Cardiovascular Exam: Present: regular rate, normal rhythm, normal heart sounds GI/Abdominal exam: Present: soft, tenderness, guarding, normal bowel sounds Extremities exam: Present: normal inspection, full ROM, normal capillary refill, other (+2 ulnar and radial pulses bilaterally.) Back exam: Present: normal inspection, full ROM Neurological exam: Present: alert, oriented X3 Psychiatric exam: Present: normal affect, normal mood Skin exam: Present: warm, dry, intact, normal color <NeryMarbino - Last Filed: 09/05/19 15:47> Course Vital Signs 09/05/19 09/05/19 09/05/19 14:05 14:08 15:08 Temperature 98.7 F Pulse Rate 99 Respiratory 20 18 18 Rate Blood Pressure 147/75 126/69 O2 Sat by Pulse 99 Oximetry 09/05/19 09/05/19 09/05/19 16:00 17:00 17:16 Temperature Pulse Rate 88 81 81 Respiratory 18 18 18 Rate Blood Pressure 119/71 119/71 O2 Sat by Pulse 99 99 99 Oximetry Medical Decision Making <NeryMarbino - Last Filed: 09/05/19 15:47> - Lab Data Result diagrams: 09/06/19 11:00 09/06/19 11:00 <Zora Sweeney - Last Filed: 09/07/19 03:18> - Medical Decision Making Patient is 69-year-old female with history of diverticulitis presenting to emergency Department with a chief complaint of abdominal pain. Patient had a CT obtained showing acute diverticulitis, prior colonic abscess and acute abdomen. On exam patient does have abdominal guarding. Patient is resting well and is not complaining of any symptoms aside from mild nausea. Additional laboratory work was obtained. Lactic and blood cultures pending. Patient was given fluids and antiemetics. Patient started on Vanco and Zosyn.. Dr. Sweeney discussed the case with who will admit the patient. will be consulted. Patient nothing by mouth. Patient will be admitted. (Nahid Gabriel) I was available for consultation in the emergency department. The history and physical exam were done by the midlevel provider. I was consulted for this patients care. I reviewed the case with the midlevel provider and based on their presentation of the patient, I agree with the assessment, medical decision making and plan of care as documented. I evaluated the patient myself. She presents with abd pain and CT findings positive for diverticulitis with perforation. I discussed the case with Dr. Mcgrath who accepted admission. Chart was dictated using [employer] dictation software. Attempts were made to correct any dictation errors however some typographical errors may persist. Patient was seen during a national state of emergency due to the Covid-19 pandemic. (Zora Sweeney) - Lab Data Lab Results 09/05/19 Range/Units 15:18 Coronavirus (PCR) Not Detected (Not Detectd) Disposition Is patient prescribed a controlled substance at d/c from ED?: No Time of Disposition: 15:44 <Nahid Gabriel - Last Filed: 09/05/19 15:47> <Zora Sweeney - Last Filed: 09/07/19 03:18> Clinical Impression: Acute abdomen, Diverticulitis, Pericolonic abscess Disposition: ADMITTED IP TO THIS HOSP Condition: Good
[2019-09-05] MEDS ORDERED: ALPRAZolam 0.25 MG TAB PO PRN (15:44)
[2019-09-05] MEDS ORDERED: NALOXONE 0.4 MG/ML 1 ML VIAL IV PRN (15:44)
[2019-09-05] MEDS ORDERED: VANCOMYCIN 1,500 MG in SODIUM CHLORIDE 0.9% 250 ML IVPB ONE (16:00)
[2019-09-05 16:50] LABS: Amylase 67 U/L (30-110)
[2019-09-05] MEDS: SODIUM CHLORIDE 0.9% 1,000 ML IV SCH (17:05)
[2019-09-05 17:28] LABS: Appearance,Urine Clear (Clear); Bilirubin,Urine Negative (Negative); Blood,Urine Negative (Negative); Color,Urine Light Yellow; Glucose,Urine (UA) Negative (Negative); Ketones,Urine Trace (Negative); Leukocyte Esterase,Urine Negative (Negative); Nitrite,Urine Negative (Negative); PH, Urine 6.5 (5.0-8.0); Protein,Urine Negative (Negative); Specific Gravity,Urine 1.043 (1.001-1.035); Urobilinogen,Urine <2.0 mg/dL (<2.0)
[2019-09-06] MEDS ORDERED: VANCOMYCIN 1,250 MG in SODIUM CHLORIDE 0.9% 250 ML IVPB SCH (05:00)
[2019-09-06] MEDS: SODIUM CHLORIDE 0.9% 1,000 ML IV SCH ×2 (05:14→19:26)
[2019-09-06] MEDS ORDERED: ACETAMINOPHEN IV (For NPO) 1,000 MG in EMPTY BAG 1 BAG IVPB STA (08:34)
[2019-09-06] MEDS ORDERED: HEPARIN SODIUM,PORCINE 5,000 UNIT/ML 1 ML VIAL SQ SCH (09:00)
[2019-09-06] MEDS: PANTOPRAZOLE 40 MG/10 ML VIAL IVP SCH (10:00)
--- NOTE | 2019-09-06 10:37 | P.GSHP ---
History of Present Illness H&P Date: 09/06/19 Chief Complaint: abdominal pain CHIEF COMPLAINT: abdominal pain HISTORY OF PRESENT ILLNESS: 69-year-old female who presented to the emergency room with a chief complaint of abdominal pain. Patient reports she has been having left lower quadrant pain for approximately the last 7-10 days. Patient presented to urgent care and a CT was ordered. Patient was notified to return to the emergency room after her computed tomography scan was completed due to abnormal results. Patient examined this morning the bedside. She states her pain has improved since yesterday. She reports mild nausea. Denies vomiting. PAST MEDICAL HISTORY: See list. PAST SURGICAL HISTORY: See list. SOCIAL HISTORY: No illicit drug use. REVIEW OF SYSTEMS: CONSTITUTIONAL: Denies fever or chills. HEENT: Denies blurred vision, vision changes, or eye pain. Denies hemoptysis CARDIOVASCULAR: Denies chest pain or pressure. RESPIRATORY: No shortness of breath. GASTROINTESTINAL: Refer to HPI for pertinent findings HEMATOLOGIC: Denies bleeding disorders. GENITOURINARY: Denies any blood in urine. SKIN: Denies pruitis. Denies rash. PHYSICAL EXAM: VITAL SIGNS: Reviewed. GENERAL: Well-developed in no acute distress. HEENT: No sclera icterus. Extraocular movements grossly intact. Moist buccal mucosa. Head is atraumatic, normocephalic. ABDOMEN: Soft. Nondistended. tenderness with palpation of left lower quadrant. NEUROLOGIC: Alert and oriented. Cranial nerves II through XII grossly intact. LABORATORY DATA: AM labs pending IMAGING: CT abdomen pelvis: acute uncomplicated diverticulitis with pericolonic abscess and pneumoperitoneum in the pelvis and along the diaphragmatic border. ASSESSMENT: 1. Acute diverticulitis with pericolonic abscess and pneumoperitoneum 2. Hiatal hernia PLAN: -Continue antibiotics -Await AM labs -Begin clear liquid diet -Patient anxious to be discharged home. Notified patient that the earliest she could be discharged home is tomorrow depending on how she is doing -No surgical intervention recommended at this time. Dr. Mcgrath did discuss possibility of surgical intervention in the future with patient for her diverticulitis in an attempt to avoid a colostomy bag Nurse practitioner note has been reviewed by physician. Signing provider agrees with the documented findings, assessment, and plan of care. Past Medical History Past Medical History: Cancer Additional Past Medical History / Comment(s): Do not use left arm for IV or BP- left breast CA with lumpectomy and radiation and chemo. diverticulitis History of Any Multi-Drug Resistant Organisms: None Reported Past Surgical History: Breast Surgery, Cholecystectomy, Tonsillectomy Additional Past Surgical History / Comment(s): L breast lumpectomy 2002. Past Anesthesia/Blood Transfusion Reactions: Motion Sickness Additional Past Anesthesia/Blood Transfusion Reaction / Comment(s): Pt has never recieved blood. Past Psychological History: No Psychological Hx Reported Additional Psychological History / Comment(s): Pt resides with her spouse of 33 yrs. She is independent. She uses no assistive device. She drives. Smoking Status: Former smoker Past Alcohol Use History: Occasional Additional Past Alcohol Use History / Comment(s): Pt states she started smoking in 1969 and quit in 1990. Pt has 1-2 glasses of wine/beer almost daily. Past Drug Use History: None Reported - Past Family History Father Family Medical History: Myocardial Infarction (ND) Additional Family Medical History / Comment(s): Father had a ND in his 60's. He from a post op hip infection at age 73 yrs. no gallbladder disease Mother Family Medical History: Eye Disorder, Hypertension Additional Family Medical History / Comment(s): Mother had glaucoma. She at age 82 yrs. Medications and Allergies Home Medications Medication Instructions Recorded Confirmed Type Simvastatin [Zocor] 20 mg PO HS 07/01/19 09/05/19 History Aspirin/Acetaminophen/Caffeine 1 - 2 tab PO DAILY PRN 09/05/19 09/05/19 History [Excedrin Extra Strength Caplet] Calcium Carbonate [Tums] 500 - 1,000 mg PO QID PRN 09/05/19 09/05/19 History Ciprofloxacin HCl [Cipro] 500 mg PO Q12H 09/05/19 09/05/19 History Ondansetron Odt [Zofran Odt] 8 mg PO Q8H PRN 09/05/19 09/05/19 History metroNIDAZOLE [Flagyl] 500 mg PO TID 09/05/19 09/05/19 History Allergies Allergy/AdvReac Type Severity Reaction Status Date / Time bee venom protein (honey bee) Allergy Anaphylaxis Verified 09/05/19 15:55 Surgical - Exam Vital Signs Temp Pulse Resp BP Pulse Ox 98.7 F 99 20 147/75 99 09/05/19 14:05 09/05/19 14:05 09/05/19 14:05 09/05/19 14:05 09/05/19 14:05 Results - Labs Abnormal Lab Results - Last 24 Hours (Table) 09/05/19 Range/Units 17:20 Ur Specific [place] 1.043 H (1.001-1.035) Urine Ketones Trace H (Negative)
[2019-09-06 11:52] LABS: ALT 12 U/L (4-34); AST 19 U/L (14-36); African American GFR (CKD) >90 (>60 ml/min/1.73 sqM); Albumin 3.4 g/dL (3.5-5.0); Alkaline Phosphatase 60 U/L (38-126); Anion Gap 9 mmol/L; Blood Urea Nitrogen 8 mg/dL (7-17); Calcium 9.2 mg/dL (8.4-10.2); Carbon Dioxide 22 mmol/L (22-30); Chloride 106 mmol/L (98-107); Glucose 81 mg/dL (74-99); Non-African American GFR(CKD) >90 (>60 ml/min/1.73 sqM); Sodium 137 mmol/L (137-145); Total Bilirubin 0.9 mg/dL (0.2-1.3); Total Protein 6.3 g/dL (6.3-8.2)
[2019-09-06 11:58] LABS: Basophils % (A) 0 %; Eosinophils # (A) 0.1 k/uL (0-0.7); Eosinophils % (A) 1 %; HCT 39.1 % (34.0-46.0); HGB 12.7 gm/dL (11.4-16.0); Lymphocytes # (A) 1.5 k/uL (1.0-4.8); Lymphocytes % (A) 12 %; MCH 28.7 pg (25.0-35.0); MCHC 32.3 g/dL (31.0-37.0); MCV 88.6 fL (80.0-100.0); Mean Platelet Volume 8.1; Monocytes # (A) 0.6 k/uL (0-1.0); Monocytes % (A) 5 %; Neutrophils # (A) 9.5 k/uL (1.3-7.7); Neutrophils % (A) 80 %; Platelet Count 294 k/uL (150-450); RBC 4.42 m/uL (3.80-5.40); RDW 12.6 % (11.5-15.5); WBC 11.8 k/uL (3.8-10.6)
[2019-09-06] MEDS ORDERED: KETOROLAC 30 MG/ML 1 ML VIAL IVP SCH (12:00)
--- NOTE | 2019-09-06 14:33 | P.CONS ---
History of Present Illness - Reason for Consult Consult date: 09/06/19 Medical management while hospitalized Requesting physician: Den Mcgrath - Chief Complaint Abdominal pain - History of Present Illness Courtney Castellano is a 69-year-old female well known to my practice who presented to [facility] emergency room with a chief complaint of abdominal pain that started 3 days prior to admission and has been worsening. Patient describes pain mostly in the left lower quadrant she had episodes of nausea and vomiting she also had diarrhea. She denies any blood in the stools, she had one episode of low-grade fever otherwise no fever or chills no headache or dizziness no chest pain no shortness of breath no cough no burning with urination no frequency or urgency and no hematuria. Patient was evaluated in the emergency room, she had a computed tomography scan of the abdomen and pelvis as outpatient that revealed evidence of acute diverticulitis with pericolonic abscess and pneumoperitoneum in the pelvis and along the diaphragmatic border. She was admitted to the hospital and was started on IV antibiotics. Patient states that she had 1 previous episode of acute diverticulitis while she was in [place] she was treated with antibiotic and improved. She denies any previous surgery on her Colon. She has a known previous history of cholecystectomy, her past medical history also significant for history of breast cancer, history of hypertension, history of hyperlipidemia, and history of valvular heart disease. Past Medical History Past Medical History: Cancer Additional Past Medical History / Comment(s): Do not use left arm for IV or BP- left breast CA with lumpectomy and radiation and chemo. diverticulitis History of Any Multi-Drug Resistant Organisms: None Reported Past Surgical History: Breast Surgery, Cholecystectomy, Tonsillectomy Additional Past Surgical History / Comment(s): L breast lumpectomy 2002. Past Anesthesia/Blood Transfusion Reactions: Motion Sickness Additional Past Anesthesia/Blood Transfusion Reaction / Comm: Pt has never recieved blood. Past Psychological History: No Psychological Hx Reported Additional Psychological History / Comment(s): Pt resides with her spouse of 33 yrs. She is independent. She uses no assistive device. She drives. Smoking Status: Former smoker Past Alcohol Use History: Occasional Additional Past Alcohol Use History / Comment(s): Pt states she started smoking in 1969 and quit in 1990. Pt has 1-2 glasses of wine/beer almost daily. Past Drug Use History: None Reported - Past Family History Father Family Medical History: Myocardial Infarction (HI) Additional Family Medical History / Comment(s): Father had a HI in his 60's. He from a post op hip infection at age 73 yrs. no gallbladder disease Mother Family Medical History: Eye Disorder, Hypertension Additional Family Medical History / Comment(s): Mother had glaucoma. She at age 82 yrs. Medications and Allergies Home Medications Medication Instructions Recorded Confirmed Type Simvastatin [Zocor] 20 mg PO HS 07/01/19 09/05/19 History Aspirin/Acetaminophen/Caffeine 1 - 2 tab PO DAILY PRN 09/05/19 09/05/19 History [Excedrin Extra Strength Caplet] Calcium Carbonate [Tums] 500 - 1,000 mg PO QID PRN 09/05/19 09/05/19 History Ciprofloxacin HCl [Cipro] 500 mg PO Q12H 09/05/19 09/05/19 History Ondansetron Odt [Zofran Odt] 8 mg PO Q8H PRN 09/05/19 09/05/19 History metroNIDAZOLE [Flagyl] 500 mg PO TID 09/05/19 09/05/19 History Allergies Allergy/AdvReac Type Severity Reaction Status Date / Time bee venom protein (honey bee) Allergy Anaphylaxis Verified 09/05/19 15:55 Physical Exam Vitals: Vital Signs Temp Pulse Pulse Resp BP BP Pulse Ox 09/06/19 07:00 98.3 F 90 18 143/74 97 09/06/19 03:40 98.5 F 84 114/64 99 09/05/19 19:20 98.7 F 90 129/80 98 09/05/19 17:36 99.4 F 80 18 143/81 99 09/05/19 17:16 81 18 119/71 99 09/05/19 17:00 81 18 119/71 99 09/05/19 16:00 88 18 99 09/05/19 15:08 18 126/69 Intake and Output 09/05/19 09/06/19 09/06/19 22:59 06:59 14:59 Intake Total 450 Balance 450 Intake: Intake, IV Titration 450 Amount Sodium Chloride 0.9% 1, 450 000 ml @ 75 mls/hr IV . [id number] [facility] Rx#:[id number] Other: # Voids 1 3 Weight 69.853 kg In general patient is alert and oriented 3 in no apparent distress HEENT head normocephalic and atraumatic Neck is supple no JVD no goiter no lymphadenopathy Chest exam reveals a few scattered crackles no wheezing Cardiac exam reveals regular heart sounds no gallops no murmurs Abdomen is soft with mild tenderness in the left lower quadrant and periumbilical area no organomegaly with normal bowel sounds Extremity exam reveals no edema no cyanosis or clubbing Neurological examination reveals no gross focal deficit Results CBC & Chem 7: 09/06/19 11:00 09/06/19 11:00 Labs: Abnormal Lab Results - Last 24 Hours (Table) 09/05/19 09/06/19 09/06/19 Range/Units 17:20 11:00 11:00 WBC 11.8 H (3.8-10.6) k/uL Neutrophils # 9.5 H (1.3-7.7) k/uL Albumin 3.4 L (3.5-5.0) g/dL Ur Specific [place] 1.043 H (1.001-1.035) Urine Ketones Trace H (Negative) Assessment and Plan Plan: 1. Acute diverticulitis with abscess and microperforation and pneumoperitoneum 2. Underlying history of hyperlipidemia 3. Previous history of breast cancer 4. History of valvular heart disease At this time patient is maintained on IV antibiotic Zosyn Clinically she is improving, white blood count elevated at 11.8 otherwise labs are unremarkable. Will continue with current management Protonix for GI prophylaxis, we will add subcu Lovenox for DVT prophylaxis Will follow in a.m.
[2019-09-06] MEDS: PIPERACILLIN-TAZOBACTAM 3.375 GM in SODIUM CHLORIDE 0.9% 100 ML IVPB SCH (16:31)
[2019-09-06] MEDS: ENOXAPARIN 40 MG/0.4 ML SYRINGE SQ SCH (16:31)
[2019-09-07] MEDS: PIPERACILLIN-TAZOBACTAM 3.375 GM in SODIUM CHLORIDE 0.9% 100 ML IVPB SCH ×4 (00:07→22:55)
[2019-09-07] MEDS: ONDANSETRON 4 MG/2 ML VIAL IVP PRN ×3 (00:08→15:54)
[2019-09-07 07:26] LABS: Basophils # (A) 0.1 k/uL (0-0.2); Basophils % (A) 1 %; Eosinophils # (A) 0.1 k/uL (0-0.7); Eosinophils % (A) 1 %; HCT 39.6 % (34.0-46.0); HGB 12.6 gm/dL (11.4-16.0); Lymphocytes # (A) 1.8 k/uL (1.0-4.8); Lymphocytes % (A) 12 %; MCH 27.6 pg (25.0-35.0); MCHC 31.9 g/dL (31.0-37.0); MCV 86.6 fL (80.0-100.0); Mean Platelet Volume 7.8; Monocytes # (A) 0.9 k/uL (0-1.0); Monocytes % (A) 6 %; Neutrophils # (A) 11.7 k/uL (1.3-7.7); Neutrophils % (A) 79 %; Platelet Count 310 k/uL (150-450); RBC 4.57 m/uL (3.80-5.40); RDW 12.6 % (11.5-15.5); WBC 14.8 k/uL (3.8-10.6)
[2019-09-07 07:43] LABS: ALT 13 U/L (4-34); AST 25 U/L (14-36); African American GFR (CKD) >90 (>60 ml/min/1.73 sqM); Albumin 3.6 g/dL (3.5-5.0); Alkaline Phosphatase 71 U/L (38-126); Anion Gap 9 mmol/L; Blood Urea Nitrogen 7 mg/dL (7-17); Calcium 9.6 mg/dL (8.4-10.2); Carbon Dioxide 21 mmol/L (22-30); Chloride 106 mmol/L (98-107); Glucose 97 mg/dL (74-99); Non-African American GFR(CKD) >90 (>60 ml/min/1.73 sqM); Potassium 3.8 mmol/L (3.5-5.1); Sodium 136 mmol/L (137-145); Total Bilirubin 1.1 mg/dL (0.2-1.3); Total Protein 6.7 g/dL (6.3-8.2)
[2019-09-07] MEDS: PANTOPRAZOLE 40 MG/10 ML VIAL IVP SCH (08:02)
[2019-09-07] MEDS: ENOXAPARIN 40 MG/0.4 ML SYRINGE SQ SCH (08:02)
[2019-09-07] MEDS: SODIUM CHLORIDE 0.9% 1,000 ML IV SCH ×2 (08:06→21:11)
[2019-09-07] MEDS: KETOROLAC 30 MG/ML 1 ML VIAL IVP PRN (10:49)
--- NOTE | 2019-09-07 15:09 | P.PN ---
Subjective Progress Note Date: 09/07/19 Courtney Castellano is a 69-year-old female well known to my practice who presented to [facility] emergency room with a chief complaint of abdominal pain that started 3 days prior to admission and has been worsening. Patient describes pain mostly in the left lower quadrant she had episodes of nausea and vomiting she also had diarrhea. She denies any blood in the stools, she had one episode of low-grade fever otherwise no fever or chills no headache or dizziness no chest pain no shortness of breath no cough no burning with urination no frequency or urgency and no hematuria. Patient was evaluated in the emergency room, she had a computed tomography scan of the abdomen and pelvis as outpatient that revealed evidence of acute diverticulitis with pericolonic abscess and pneumoperitoneum in the pelvis and along the diaphragmatic border. She was admitted to the hospital and was started on IV antibiotics. Patient states that she had 1 previous episode of acute diverticulitis while she was in [place] she was treated with antibiotic and improved. She denies any previous surgery on her Colon. She has a known previous history of cholecystectomy, her past medical history also significant for history of breast cancer, history of hypertension, history of hyperlipidemia, and history of valvular heart disease. On 09/07/2019 patient was seen and examined on the medical floor she is alert and oriented 3 in no apparent distress she is still complaining of abdominal pain mostly in the left lower quadrant otherwise she denies any complaints there is no fever or chills no headache or dizziness no chest pain no shortness of breath no cough no nausea or vomiting no diarrhea and no urinary symptoms Objective - Vital Signs Vital signs: Vital Signs Temp 98.3 F 09/07/19 13:59 Pulse 79 09/07/19 13:59 Resp 17 09/07/19 13:59 BP 123/75 09/07/19 13:59 Pulse Ox 98 09/07/19 13:59 Intake & Output 09/06/19 09/07/19 09/07/19 18:59 06:59 18:59 Intake Total 450 480 820 Balance 450 480 820 Intake: Oral 450 480 820 Other: Voiding Method Toilet # Voids 3 3 - Exam In general patient is alert and oriented 3 in no apparent distress HEENT head normocephalic and atraumatic Neck is supple no JVD no goiter no lymphadenopathy Chest exam reveals a few scattered crackles no wheezing Cardiac exam reveals regular heart sounds no gallops no murmurs Abdomen is soft with mild tenderness in the left lower quadrant and periumbilical area no organomegaly with normal bowel sounds Extremity exam reveals no edema no cyanosis or clubbing Neurological examination reveals no gross focal deficit - Labs CBC & Chem 7: 09/07/19 06:48 09/07/19 06:48 Labs: Abnormal Lab Results - Last 24 Hours (Table) 09/07/19 09/07/19 Range/Units 06:48 06:48 WBC 14.8 H (3.8-10.6) k/uL Neutrophils # 11.7 H (1.3-7.7) k/uL Sodium 136 L (137-145) mmol/L Carbon Dioxide 21 L (22-30) mmol/L Microbiology - Last 24 Hours (Table) 09/05/19 16:23 Blood Culture - Preliminary Blood No Growth after 24 hours Assessment and Plan Plan: 1. Acute diverticulitis with abscess and microperforation and pneumoperitoneum 2. Underlying history of hyperlipidemia 3. Previous history of breast cancer 4. History of valvular heart disease At this time patient is maintained on IV antibiotic Zosyn white blood count up from 11.8 to 14.8 at this time will continue with IV Zosyn and add IV Flagyl and add consultation for infectious disease Protonix for GI prophylaxis, we will add subcu Lovenox for DVT prophylaxis Will follow in a.m.
[2019-09-07] MEDS: metroNIDAZOLE-NS PMX 500 MG in SALINE 1 100ML.BAG IVPB SCH ×2 (15:47→21:48)
--- NOTE | 2019-09-07 16:11 | P.PN ---
Progress Note - Text Progress Note Date: 09/07/19 The patient had increased pain this morning. Her white count is also normal. There is a left shift. On exam her vital signs are stable. Her abdomen soft. There is some tenderness left lower quadrant. History of perforated diverticula is. Patient continued is clear liquids and IV antibiotic. I discussed the patient the risk of perforation could lead to the emergency room. Patiently closely observed.
--- NOTE | 2019-09-07 16:26 | P.CONS ---
History of Present Illness - Reason for Consult Consult date: 09/07/19 Diverticulitis with abscess Requesting physician: Leslie Estrada - Chief Complaint abdominal pain x 3 days - History of Present Illness Patient is a 69-year female with a past medical history significant for diverticulitis for the patient was admitted at a hospital in [place] last few she received 2 days of antibiotics in the hospital subsequent discharged on a 10-day course of antibiotics at home patient receiving once a day patient current abdominal pain started on Thursday, the patient pain has been mostly in the left lower abdominal area was sharp intensity almost 10 out of 10 initially the patient pain somewhat in eased off subsequently, patient did have a episodes of nausea with it but no vomiting did complain of some diarrhea but no constipation did have some mucus but no blood in the stool with this symptom the patient went to an urgent care on [address] patient was sent for a CT of abdominal pelvis to [facility] abdominal pelvis was completed which did shows evidence of perforated sigmoid diverticulitis and perforation patient was advised to go back to the hospital for admission IV by therapy on presented to the hospital patient was afebrile subsequently spiked low-grade fever 100.1 patient did have mild tachycardia and a white count elevated of 11.8 subsequently up to 14.8 UA has been negative: A PCR was negative patient was started on Zosyn admitted to hospital infectious was consulted for further recommendation about antibiotic therapy. Review of Systems Positive point has been mentioned HPI rest of the systems are negative Past Medical History Past Medical History: Cancer Additional Past Medical History / Comment(s): Do not use left arm for IV or BP- left breast CA with lumpectomy and radiation and chemo. diverticulitis History of Any Multi-Drug Resistant Organisms: None Reported Past Surgical History: Breast Surgery, Cholecystectomy, Tonsillectomy Additional Past Surgical History / Comment(s): L breast lumpectomy 2002. Past Anesthesia/Blood Transfusion Reactions: Motion Sickness Additional Past Anesthesia/Blood Transfusion Reaction / Comm: Pt has never recieved blood. Past Psychological History: No Psychological Hx Reported Additional Psychological History / Comment(s): Pt resides with her spouse of 33 yrs. She is independent. She uses no assistive device. She drives. Smoking Status: Former smoker Past Alcohol Use History: Occasional Additional Past Alcohol Use History / Comment(s): Pt states she started smoking in 1969 and quit in 1990. Pt has 1-2 glasses of wine/beer almost daily. Past Drug Use History: None Reported - Past Family History Father Family Medical History: Myocardial Infarction (ME) Additional Family Medical History / Comment(s): Father had a ME in his 60's. He from a post op hip infection at age 73 yrs. no gallbladder disease Mother Family Medical History: Eye Disorder, Hypertension Additional Family Medical History / Comment(s): Mother had glaucoma. She at age 82 yrs. Medications and Allergies Home Medications Medication Instructions Recorded Confirmed Type Simvastatin [Zocor] 20 mg PO HS 07/01/19 09/05/19 History Aspirin/Acetaminophen/Caffeine 1 - 2 tab PO DAILY PRN 09/05/19 09/05/19 History [Excedrin Extra Strength Caplet] Calcium Carbonate [Tums] 500 - 1,000 mg PO QID PRN 09/05/19 09/05/19 History Ciprofloxacin HCl [Cipro] 500 mg PO Q12H 09/05/19 09/05/19 History Ondansetron Odt [Zofran Odt] 8 mg PO Q8H PRN 09/05/19 09/05/19 History metroNIDAZOLE [Flagyl] 500 mg PO TID 09/05/19 09/05/19 History Allergies Allergy/AdvReac Type Severity Reaction Status Date / Time bee venom protein (honey bee) Allergy Anaphylaxis Verified 09/05/19 15:55 Physical Exam Vitals: Vital Signs Temp Pulse Resp BP Pulse Ox 09/07/19 13:59 98.3 F 79 17 123/75 98 09/07/19 07:00 99.0 F 89 16 124/75 97 09/07/19 02:05 98.9 F 95 121/75 99 09/06/19 19:23 100.1 F H 96 16 126/73 98 Intake and Output 09/07/19 09/07/19 09/07/19 06:59 14:59 22:59 Intake Total 820 Balance 820 Intake: Oral 820 Other: # Voids 3 GENERAL DESCRIPTION: Elderly female up in the chair, no distress. No tachypnea or accessory muscle of respiration use. HEENT: Shows Pallor , no scleral icterus. Oral mucous membrane is dry. NECK: Trachea central, no thyromegaly. LUNGS: Unlabored breathing. Clear to auscultation anteriorly. No wheeze or c rackle. HEART: S1, S2, regular rate and rhythm. No loud murmur ABDOMEN: Soft, left lower quadrant tenderness , no guarding or rigidity, no organomegaly EXTREMITIES: No edema of feet. SKIN: No rash, no masses palpable. NEUROLOGICAL: The patient is awake, alert, oriented x3, mood and affect normal. Results CBC & Chem 7: 09/07/19 06:48 09/07/19 06:48 Labs: Abnormal Lab Results - Last 24 Hours (Table) 09/07/19 09/07/19 Range/Units 06:48 06:48 WBC 14.8 H (3.8-10.6) k/uL Neutrophils # 11.7 H (1.3-7.7) k/uL Sodium 136 L (137-145) mmol/L Carbon Dioxide 21 L (22-30) mmol/L Microbiology - Last 24 Hours (Table) 09/05/19 16:23 Blood Culture - Preliminary Blood No Growth after 24 hours Assessment and Plan Assessment: -patient presented to hospital with sepsis in this patient who did have a fever elevated white count tachycardia source is acutely mild diverticulitis with perforation and abscess and will need to call for the enteric gram-negative both aerobes anaerobes to the likely pathogen responsible for this abscess (1) Sepsis Current Visit: Yes Status: Acute Code(s): A41.9 - SEPSIS, UNSPECIFIED ORGANISM SNOMED Code(s): 69411997 (2) Diverticulitis Current Visit: Yes Status: Acute Code(s): K57.92 - DVTRCLI OF INTEST, PART UNSP, W/O PERF OR ABSCESS W/O BLEED SNOMED Code(s): 619723522 (3) Pericolonic abscess Current Visit: Yes Status: Acute Code(s): K63.0 - ABSCESS OF INTESTINE SNOMED Code(s): 92016111 Plan: 1-patient is covered with Zosyn 3.75 g. Every 8 hour to continue 2-advised bowel rest and IV fluid 3-patient clinically improved and white count improved as well may get a midline for outpatient IV Invanz as the patient has been insisting on going home We will follow on clinical condition and cultures to further adjust medication if needed Thank you for this consultation will follow this patient along with you Time with Patient: Greater than 30
[2019-09-07] MEDS: ACETAMINOPHEN TAB 325 MG TAB PO PRN (22:14)
[2019-09-08] MEDS: SODIUM CHLORIDE 0.9% 1,000 ML IV SCH (06:22)
[2019-09-08] MEDS: metroNIDAZOLE-NS PMX 500 MG in SALINE 1 100ML.BAG IVPB SCH ×3 (07:27→23:42)
[2019-09-08] MEDS: PANTOPRAZOLE 40 MG/10 ML VIAL IVP SCH (07:28)
[2019-09-08] MEDS: ENOXAPARIN 40 MG/0.4 ML SYRINGE SQ SCH (07:28)
[2019-09-08] MEDS: IOPAMIDOL CONTRAST (ORAL USE) VIAL PO PRN ×2 (07:42→08:58)
[2019-09-08 08:07] LABS: Basophils # (A) 0.1 k/uL (0-0.2); Basophils % (A) 0 %; Eosinophils # (A) 0.1 k/uL (0-0.7); Eosinophils % (A) 1 %; HCT 42.1 % (34.0-46.0); HGB 13.5 gm/dL (11.4-16.0); Lymphocytes # (A) 1.5 k/uL (1.0-4.8); Lymphocytes % (A) 12 %; MCH 27.8 pg (25.0-35.0); MCHC 32.2 g/dL (31.0-37.0); MCV 86.4 fL (80.0-100.0); Monocytes # (A) 0.7 k/uL (0-1.0); Monocytes % (A) 6 %; Neutrophils # (A) 9.4 k/uL (1.3-7.7); Neutrophils % (A) 79 %; Platelet Count 280 k/uL (150-450); RBC 4.87 m/uL (3.80-5.40); RDW 12.6 % (11.5-15.5)
[2019-09-08] MEDS: PIPERACILLIN-TAZOBACTAM 3.375 GM in SODIUM CHLORIDE 0.9% 100 ML IVPB SCH ×2 (08:32→16:53)
--- NOTE | 2019-09-08 09:47 | CT ---
EXAMINATION TYPE: CT abdomen pelvis w con DATE OF EXAM: 09/08/2019 COMPARISON: 09/05/2019 HISTORY: diverticulitis CT DLP: 863.4 mGycm CONTRAST: CT scan of the abdomen and pelvis is performed with Oral Contrast and with IV Contrast, patient injec priscilla with 100 mL of Isovue 300. FINDINGS: LUNG BASES-: No visible nodule. No infiltrate. LIVER/GB: No calcified gallstones. No space occupying hepatic lesion. Biliary tree is of normal ca liber. PANCREAS: No inflammation. No distinct mass. SPLEEN: No splenic enlargement. No lesion seen. ADRENALS: No nodule. No thickening. KIDNEYS/BLADDER: No hydronephrosis. No nephrolithiasis. Simple cyst left kidney redemonstrated. Uri nary bladder grossly unremarkable. BOWEL: Again noted are changes of acute sigmoid diverticulitis with intramural abscess which is diffi cult to measure however measures an estimated 2.4 cm. Small amount of adjacent free air noted dimini shed from prior study. Pneumoperitoneum seen previously underneath the hemidiaphragms appears to have resolved. Hiatal hernia again noted GENITAL ORGANS: No gross abnormality. LYMPH NODES: No greater than 1cm abdominal or pelvic lymph nodes are appreciated. AORTA: No significant abnormality. OSSEOUS STRUCTURES: No significant abnormality is seen. OTHER: No significant additional abnormality is seen. IMPRESSION: 1. Again noted are changes of acute sigmoid diverticulitis with intramural abscess which is difficult to measure however measures an estimated 2.4 cm.
--- NOTE | 2019-09-08 11:25 | P.PN ---
Progress Note - Text Progress Note Date: 09/08/19 The patient feels no better today. She still has left lower quadrant pain. Her repeat CAT scan shows a 2.5 cm intramural abscess of the sigmoid colon. Her white count is decreased to 12,000. On exam her vital signs are stable. Her abdomen soft. There is tenderness left lower quadrant. Perforated diverticulitis with intramural abscess. Patient continue receive IV antibiotic.
--- NOTE | 2019-09-08 16:38 | P.PN ---
Subjective Progress Note Date: 09/08/19 Courtney Castellano is a 69-year-old female well known to my practice who presented to [facility] emergency room with a chief complaint of abdominal pain that started 3 days prior to admission and has been worsening. Patient describes pain mostly in the left lower quadrant she had episodes of nausea and vomiting she also had diarrhea. She denies any blood in the stools, she had one episode of low-grade fever otherwise no fever or chills no headache or dizziness no chest pain no shortness of breath no cough no burning with urination no frequency or urgency and no hematuria. Patient was evaluated in the emergency room, she had a computed tomography scan of the abdomen and pelvis as outpatient that revealed evidence of acute diverticulitis with pericolonic abscess and pneumoperitoneum in the pelvis and along the diaphragmatic border. She was admitted to the hospital and was started on IV antibiotics. Patient states that she had 1 previous episode of acute diverticulitis while she was in [place] she was treated with antibiotic and improved. She denies any previous surgery on her Colon. She has a known previous history of cholecystectomy, her past medical history also significant for history of breast cancer, history of hypertension, history of hyperlipidemia, and history of valvular heart disease. On 09/07/2019 patient was seen and examined on the medical floor she is alert and oriented 3 in no apparent distress she is still complaining of abdominal pain mostly in the left lower quadrant otherwise she denies any complaints there is no fever or chills no headache or dizziness no chest pain no shortness of breath no cough no nausea or vomiting no diarrhea and no urinary symptoms. On 09/08/2019 patient was seen and examined on the medical floor she is alert and oriented 3 in no apparent distress she is still complaining of mild discomfort in the lower abdominal area otherwise she denies any complaints there is no fever or chills no headache or dizziness no chest pain no shortness of breath no cough no nausea or vomiting there is some diarrhea but no mucus or blood in the stools there is no urinary symptoms Objective - Vital Signs Vital signs: Vital Signs Temp 98.9 F 09/08/19 14:27 Pulse 79 09/08/19 14:27 Resp 18 09/08/19 14:27 BP 134/81 09/08/19 14:27 Pulse Ox 99 09/08/19 14:27 Intake & Output 0509/08/19 09/08/19 18:59 06:59 18:59 Intake Total 1385 360 Balance 1385 360 Intake: Oral 1385 360 Other: Voiding Method Toilet # Voids 3 2 1 - Exam In general patient is alert and oriented 3 in no apparent distress HEENT head normocephalic and atraumatic Neck is supple no JVD no goiter no lymphadenopathy Chest exam reveals a few scattered crackles no wheezing Cardiac exam reveals regular heart sounds no gallops no murmurs Abdomen is soft with mild tenderness in the left lower quadrant and periumbilical area no organomegaly with normal bowel sounds Extremity exam reveals no edema no cyanosis or clubbing Neurological examination reveals no gross focal deficit - Labs CBC & Chem 7: 09/08/19 07:30 09/07/19 06:48 Labs: Abnormal Lab Results - Last 24 Hours (Table) 09/08/19 Range/Units 07:30 WBC 12.0 H (3.8-10.6) k/uL Neutrophils # 9.4 H (1.3-7.7) k/uL Microbiology - Last 24 Hours (Table) 09/05/19 16:23 Blood Culture - Preliminary Blood No Growth after 48 hours Assessment and Plan Plan: 1. Acute diverticulitis with abscess and microperforation and pneumoperitoneum 2. Underlying history of hyperlipidemia 3. Previous history of breast cancer 4. History of valvular heart disease At this time patient is maintained on IV antibiotic Zosyn and Flagyl white blood count up from 11.8 to 14.8 and today down to 12.4 Continue current management awaiting further recommendation from infectious disease Protonix for GI prophylaxis, subcu Lovenox for DVT prophylaxis Will follow in a.m.
--- NOTE | 2019-09-08 18:16 | PN ---
PROGRESS NOTE DATE OF SERVICE: 09/08/2019 REASON FOR FOLLOWUP: Acute diverticulitis with perforation and abscess. INTERVAL HISTORY: The patient is currently afebrile. The patient is breathing comfortably. The patient denies significant left lower abdominal pain. No nausea, no vomiting. Did have some diarrhea. PHYSICAL EXAMINATION: On examination, her blood pressure is 134/81 with a pulse of 79, temperature 98.9. She is 99% on room air. General description is an elderly female up in the chair in no distress. RESPIRATORY SYSTEM: Unlabored breathing. Clear to auscultation anteriorly. HEART: S1, S2. Regular rate and rhythm. ABDOMEN: Soft. No tenderness. LABS: White count of 12,000. Repeat CT did not show any worsening abscess. DIAGNOSTIC IMPRESSION AND PLAN: Patient with acute sigmoid diverticulitis with peridiverticular abscess. The patient is currently on Zosyn; to continue, transitioning to IV Invanz on discharge to finish her course of therapy, and monitor her clinical course closely. MMODL / IJN: [id number] /
[2019-09-08] MEDS: ONDANSETRON 4 MG/2 ML VIAL IVP PRN (20:43)
[2019-09-08] MEDS: ACETAMINOPHEN TAB 325 MG TAB PO PRN (20:50)
[2019-09-08] MEDS ORDERED: MAG HYDROX/AL HYDROX/SIMETH 30 ML CUP PO PRN (21:14)
[2019-09-09] MEDS: SODIUM CHLORIDE 0.9% 1,000 ML IV SCH ×4 (01:11→23:41)
[2019-09-09] MEDS: PIPERACILLIN-TAZOBACTAM 3.375 GM in SODIUM CHLORIDE 0.9% 100 ML IVPB SCH ×3 (01:14→16:36)
[2019-09-09] MEDS: KETOROLAC 30 MG/ML 1 ML VIAL IVP PRN ×2 (06:55→19:38)
[2019-09-09] MEDS: ENOXAPARIN 40 MG/0.4 ML SYRINGE SQ SCH (06:56)
[2019-09-09] MEDS: PANTOPRAZOLE 40 MG/10 ML VIAL IVP SCH (06:56)
[2019-09-09] MEDS: ONDANSETRON 4 MG/2 ML VIAL IVP PRN (06:56)
[2019-09-09] MEDS: metroNIDAZOLE-NS PMX 500 MG in SALINE 1 100ML.BAG IVPB SCH ×3 (07:00→23:50)
[2019-09-09 07:42] LABS: Basophils # (A) 0.1 k/uL (0-0.2); Basophils % (A) 1 %; Eosinophils # (A) 0.1 k/uL (0-0.7); Eosinophils % (A) 1 %; HCT 42.3 % (34.0-46.0); HGB 13.3 gm/dL (11.4-16.0); Lymphocytes # (A) 1.3 k/uL (1.0-4.8); Lymphocytes % (A) 11 %; MCH 27.6 pg (25.0-35.0); MCHC 31.5 g/dL (31.0-37.0); MCV 87.7 fL (80.0-100.0); Mean Platelet Volume 7.3; Monocytes # (A) 0.7 k/uL (0-1.0); Monocytes % (A) 6 %; Neutrophils # (A) 9.8 k/uL (1.3-7.7); Neutrophils % (A) 81 %; Platelet Count 411 k/uL (150-450); RBC 4.82 m/uL (3.80-5.40); RDW 12.6 % (11.5-15.5); WBC 12.2 k/uL (3.8-10.6)
[2019-09-09] MEDS: HYDROmorphone 0.5 MG/0.5 ML SYRINGE IVP PRN (09:58)
[2019-09-09] MEDS: METOCLOPRAMIDE 5 MG/ML 2 ML VIAL IVP SCH ×3 (10:52→23:50)
[2019-09-09] MEDS ORDERED: LACTATED RINGERS 1,000 ML IV SCH (11:00)
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
--- NOTE | 2019-09-09 14:01 | PN ---
PROGRESS NOTE DATE OF SERVICE: 09/09/2019 REASON FOR FOLLOWUP: Sigmoid diverticulitis with abscess. INTERVAL HISTORY: The patient is currently afebrile. Apparently, the patient did have dizziness after she got her pain medication and went to the bathroom, did went to the floor but she said she did not loose consciousness. No chest pain, shortness of breath or cough. Abdominal pain is currently controlled. No nausea, no vomiting. PHYSICAL EXAMINATION: Blood pressure 96/58 with a pulse of 85, temperature 98.5, she is 99% on room air. General description is an elderly female, lying in bed in no distress. RESPIRATORY SYSTEM: Unlabored breathing, clear to auscultation anteriorly. HEART: S1, S2. Regular rate and rhythm. ABDOMEN: Soft, no tenderness. LABS: Hemoglobin 13.8, white count 12.2. Blood cultures negative. DIAGNOSTIC IMPRESSION AND PLAN: Patient with acute sigmoid diverticulitis with mild perforation and small abscess in this patient currently on Zosyn to continue, monitor clinical course closely. Midline has been ordered for outpatient antibiotic and continue supportive care. MMODL / IJN: [id number] /
[2019-09-09 14:52] LABS: African American GFR (CKD) >90 (>60 ml/min/1.73 sqM); Anion Gap 11 mmol/L; Blood Urea Nitrogen 2 mg/dL (7-17); Calcium 9.6 mg/dL (8.4-10.2); Carbon Dioxide 27 mmol/L (22-30); Chloride 100 mmol/L (98-107); Glucose 77 mg/dL (74-99); Magnesium 1.9 mg/dL (1.6-2.3); Non-African American GFR(CKD) >90 (>60 ml/min/1.73 sqM); Phosphorus 3.4 mg/dL (2.5-4.5); Potassium 3.3 mmol/L (3.5-5.1); Sodium 138 mmol/L (137-145)
[2019-09-09] MEDS: POTASSIUM CHLORIDE ER 20 MEQ TAB.ER PO SCH ×2 (15:54→17:09)
[2019-09-09] MEDS ORDERED: MVI, ADULT NO.4 WITH VIT K 10 ML, TRACE (CONC-1ML/DOSE) 1 ML in AMINO ACID 4.25%-D10W+L... IV ONE ×3 (16:00)
--- NOTE | 2019-09-09 16:34 | P.PN ---
Subjective Progress Note Date: 09/09/19 Courtney Castellano is a 69-year-old female well known to my practice who presented to [facility] emergency room with a chief complaint of abdominal pain that started 3 days prior to admission and has been worsening. Patient describes pain mostly in the left lower quadrant she had episodes of nausea and vomiting she also had diarrhea. She denies any blood in the stools, she had one episode of low-grade fever otherwise no fever or chills no headache or dizziness no chest pain no shortness of breath no cough no burning with urination no frequency or urgency and no hematuria. Patient was evaluated in the emergency room, she had a computed tomography scan of the abdomen and pelvis as outpatient that revealed evidence of acute diverticulitis with pericolonic abscess and pneumoperitoneum in the pelvis and along the diaphragmatic border. She was admitted to the hospital and was started on IV antibiotics. Patient states that she had 1 previous episode of acute diverticulitis while she was in [place] she was treated with antibiotic and improved. She denies any previous surgery on her Colon. She has a known previous history of cholecystectomy, her past medical history also significant for history of breast cancer, history of hypertension, history of hyperlipidemia, and history of valvular heart disease. On 09/07/2019 patient was seen and examined on the medical floor she is alert and oriented 3 in no apparent distress she is still complaining of abdominal pain mostly in the left lower quadrant otherwise she denies any complaints there is no fever or chills no headache or dizziness no chest pain no shortness of breath no cough no nausea or vomiting no diarrhea and no urinary symptoms. On 09/08/2019 patient was seen and examined on the medical floor she is alert and oriented 3 in no apparent distress she is still complaining of mild discomfort in the lower abdominal area otherwise she denies any complaints there is no fever or chills no headache or dizziness no chest pain no shortness of breath no cough no nausea or vomiting there is some diarrhea but no mucus or blood in the stools there is no urinary symptoms. On 09/09/2019 patient was seen and examined on the medical floor she is still complaining of abdominal discomfort white blood count is still elevated at 12.2 patient had 1 episode of dizziness and presyncope while walking in her room, otherwise patient denies any complaints there is no fever or chills no headache no chest pain or shortness of breath no cough no nausea or vomiting, no blood in the stools no burning was urination no frequency or urgency and no hematuria. Objective - Vital Signs Vital signs: Vital Signs Temp 98.9 F 09/09/19 15:11 Pulse 107 H 09/09/19 15:11 Resp 18 09/09/19 15:11 BP 131/77 09/09/19 15:11 Pulse Ox 95 09/09/19 15:11 Intake & Output 09/08/19 09/09/19 09/09/19 18:59 06:59 18:59 Intake Total 50 Balance 50 Weight 69.853 kg Intake: Oral 50 Other: Voiding Method Toilet Toilet # Voids 1 2 1 - Exam In general patient is alert and oriented 3 in no apparent distress HEENT head normocephalic and atraumatic Neck is supple no JVD no goiter no lymphadenopathy Chest exam reveals a few scattered crackles no wheezing Cardiac exam reveals regular heart sounds no gallops no murmurs Abdomen is soft with mild tenderness in the left lower quadrant and periumbilical area no organomegaly with normal bowel sounds Extremity exam reveals no edema no cyanosis or clubbing Neurological examination reveals no gross focal deficit - Labs CBC & Chem 7: 09/09/19 06:10 09/09/19 06:10 Labs: Abnormal Lab Results - Last 24 Hours (Table) 09/09/19 09/09/19 Range/Units 06:10 06:10 WBC 12.2 H (3.8-10.6) k/uL Neutrophils # 9.8 H (1.3-7.7) k/uL Potassium 3.3 L (3.5-5.1) mmol/L BUN 2 L (7-17) mg/dL Microbiology - Last 24 Hours (Table) 09/05/19 16:23 Blood Culture - Preliminary Blood No Growth after 72 hours Assessment and Plan Plan: 1. Acute diverticulitis with abscess and microperforation and pneumoperitoneum 2. Underlying history of hyperlipidemia 3. Previous history of breast cancer 4. History of valvular heart disease At this time patient is maintained on IV antibiotic Zosyn and Flagyl white blood count up from 11.8 to 14.8 and today down to 12.4 Continue current management awaiting further recommendation from infectious disease Protonix for GI prophylaxis, subcu Lovenox for DVT prophylaxis Will follow in a.m.
[2019-09-09] MEDS: FAT EMULSION 20% 250 ML IV SCH (16:35)
[2019-09-10] MEDS: MORPHINE SULFATE 4 MG/ML SYRINGE IV PRN ×2 (00:05→16:53)
[2019-09-10] MEDS: PIPERACILLIN-TAZOBACTAM 3.375 GM in SODIUM CHLORIDE 0.9% 100 ML IVPB SCH ×4 (01:09→23:08)
[2019-09-10 01:16] LABS: Glucose,Whole Blood 143 mg/dL (75-99)
[2019-09-10] MEDS: SODIUM CHLORIDE 0.9% 1,000 ML IV SCH ×3 (05:59→21:47)
[2019-09-10] MEDS: METOCLOPRAMIDE 5 MG/ML 2 ML VIAL IVP SCH ×4 (06:00→23:07)
[2019-09-10 06:03] LABS: Glucose,Whole Blood 146 mg/dL (75-99)
[2019-09-10] MEDS: metroNIDAZOLE-NS PMX 500 MG in SALINE 1 100ML.BAG IVPB SCH ×3 (07:48→23:07)
[2019-09-10] MEDS: PANTOPRAZOLE 40 MG/10 ML VIAL IVP SCH (08:46)
[2019-09-10] MEDS: ENOXAPARIN 40 MG/0.4 ML SYRINGE SQ SCH (08:47)
[2019-09-10 09:40] LABS: Ionized Calcium 5.2 mg/dL (4.5-5.3)
[2019-09-10 09:57] LABS: African American GFR (CKD) >90 (>60 ml/min/1.73 sqM); Anion Gap 9 mmol/L; Blood Urea Nitrogen 8 mg/dL (7-17); Carbon Dioxide 22 mmol/L (22-30); Chloride 105 mmol/L (98-107); Glucose 169 mg/dL (74-99); Magnesium 1.9 mg/dL (1.6-2.3); Non-African American GFR(CKD) >90 (>60 ml/min/1.73 sqM); Potassium 3.5 mmol/L (3.5-5.1); Sodium 136 mmol/L (137-145); Triglycerides 61 mg/dL (<150)
[2019-09-10] MEDS ORDERED: Phosphorus Replacement Protoco 1 EACH MISC MISCELLANE PRN (10:09)
[2019-09-10] MEDS: ONDANSETRON 4 MG/2 ML VIAL IVP PRN (10:38)
[2019-09-10] MEDS: 1: MVI, ADULT NO.4 WITH VIT K 10 ML, TRACE (CONC-1ML/DOSE) 1 ML in AMINO ACID 4.25%-D10W IV SCH ×9 (10:45→22:20)
[2019-09-10] MEDS: SODIUM PHOSPHATE 10 MMOL in SODIUM CHLORIDE 0.9% 250 ML IVPB SCH ×2 (11:25→15:23)
[2019-09-10] MEDS: ACETAMINOPHEN TAB 325 MG TAB PO PRN ×2 (11:31→18:57)
[2019-09-10 11:34] LABS: Glucose,Whole Blood 142 mg/dL (75-99)
--- NOTE | 2019-09-10 12:30 | P.PN ---
Progress Note - Text Progress Note Date: 09/10/19 The patient states she feels slightly better today. Her left lower quadrant pain is improved. On exam the patient is mildly tachycardic with pulse of 105. Her T-max was 100. Left lower quadrant is mildly tender it is improved from yesterday. There is no rebound or guarding. Sigmoid diverticulitis with transmural wall abscess. Patient can receive IV antibiotics. She'll continue receive supportive care.
--- NOTE | 2019-09-10 13:45 | P.PN ---
Subjective Progress Note Date: 09/10/19 Courtney Castellano is a 69-year-old female well known to my practice who presented to [facility] emergency room with a chief complaint of abdominal pain that started 3 days prior to admission and has been worsening. Patient describes pain mostly in the left lower quadrant she had episodes of nausea and vomiting she also had diarrhea. She denies any blood in the stools, she had one episode of low-grade fever otherwise no fever or chills no headache or dizziness no chest pain no shortness of breath no cough no burning with urination no frequency or urgency and no hematuria. Patient was evaluated in the emergency room, she had a computed tomography scan of the abdomen and pelvis as outpatient that revealed evidence of acute diverticulitis with pericolonic abscess and pneumoperitoneum in the pelvis and along the diaphragmatic border. She was admitted to the hospital and was started on IV antibiotics. Patient states that she had 1 previous episode of acute diverticulitis while she was in [place] she was treated with antibiotic and improved. She denies any previous surgery on her Colon. She has a known previous history of cholecystectomy, her past medical history also significant for history of breast cancer, history of hypertension, history of hyperlipidemia, and history of valvular heart disease. On 09/07/2019 patient was seen and examined on the medical floor she is alert and oriented 3 in no apparent distress she is still complaining of abdominal pain mostly in the left lower quadrant otherwise she denies any complaints there is no fever or chills no headache or dizziness no chest pain no shortness of breath no cough no nausea or vomiting no diarrhea and no urinary symptoms. On 09/08/2019 patient was seen and examined on the medical floor she is alert and oriented 3 in no apparent distress she is still complaining of mild discomfort in the lower abdominal area otherwise she denies any complaints there is no fever or chills no headache or dizziness no chest pain no shortness of breath no cough no nausea or vomiting there is some diarrhea but no mucus or blood in the stools there is no urinary symptoms. On 09/09/2019 patient was seen and examined on the medical floor she is still complaining of abdominal discomfort white blood count is still elevated at 12.2 patient had 1 episode of dizziness and presyncope while walking in her room, otherwise patient denies any complaints there is no fever or chills no headache no chest pain or shortness of breath no cough no nausea or vomiting, no blood in the stools no burning was urination no frequency or urgency and no hematuria. On 09/10/2019 Patient was seen and examined on the medical floor, she is alert and oriented in no distress, she is still complaining of abdominal pain, there is no fever or chills, no headache or dizziness no chest pain no shortness of breath no cough no nausea or vomiting no diarrhea and no urinary symptoms. Objective - Vital Signs Vital signs: Vital Signs Temp 100.0 F H 09/10/19 07:47 Pulse 105 H 09/10/19 07:47 Resp 16 09/10/19 07:47 BP 178/85 09/10/19 07:47 Pulse Ox 93 L 09/10/19 07:47 Intake & Output 09/09/19 09/10/19 09/10/19 18:59 06:59 18:59 Intake Total 50 1011.000 Balance 50 1011.000 Weight 69.853 kg 72 kg Intake: Intake, IV Titration 1011.000 Amount Mvi, Adult No.4 with Vit 1011.000 K 10 ml Trace (Conc-1Ml/ Dose) 1 ml In Amino Acid 4.25%-D10w+Lytes*E* 1,000 ml @ 50 mls/hr IV . [id number] ONE Rx#:[id number] Oral 50 Other: Voiding Method Toilet Toilet # Voids 1 - Exam In general patient is alert and oriented 3 in no apparent distress HEENT head normocephalic and atraumatic Neck is supple no JVD no goiter no lymphadenopathy Chest exam reveals a few scattered crackles no wheezing Cardiac exam reveals regular heart sounds no gallops no murmurs Abdomen is soft with mild tenderness in the left lower quadrant and periumbilical area no organomegaly with normal bowel sounds Extremity exam reveals no edema no cyanosis or clubbing Neurological examination reveals no gross focal deficit - Labs CBC & Chem 7: 09/09/19 06:10 09/10/19 08:26 Labs: Abnormal Lab Results - Last 24 Hours (Table) 09/09/19 09/10/19 09/10/19 Range/Units 06:10 01:13 06:02 Sodium (137-145) mmol/L Potassium 3.3 L (3.5-5.1) mmol/L BUN 2 L (7-17) mg/dL Creatinine (0.52-1.04) mg/dL Glucose (74-99) mg/dL POC Glucose (mg/dL) 143 H 146 H (75-99) mg/dL Phosphorus (2.5-4.5) mg/dL 09/10/19 09/10/19 Range/Units 08:26 11:33 Sodium 136 L (137-145) mmol/L Potassium (3.5-5.1) mmol/L BUN (7-17) mg/dL Creatinine 0.51 L (0.52-1.04) mg/dL Glucose 169 H (74-99) mg/dL POC Glucose (mg/dL) 142 H (75-99) mg/dL Phosphorus 2.0 L (2.5-4.5) mg/dL Microbiology - Last 24 Hours (Table) 09/05/19 16:23 Blood Culture - Preliminary Blood No Growth after 96 hours Assessment and Plan Plan: 1. Acute diverticulitis with abscess and microperforation and pneumoperitoneum 2. Underlying history of hyperlipidemia 3. Previous history of breast cancer 4. History of valvular heart disease At this time patient is maintained on IV antibiotic Zosyn and Flagyl white blood count up from 11.8 to 14.8 and today down to 12.4 Continue current management awaiting further recommendation from infectious disease Protonix for GI prophylaxis, subcu Lovenox for DVT prophylaxis Will follow in a.m.
[2019-09-10] MEDS: FAT EMULSION 20% 250 ML IV SCH (16:41)
[2019-09-10 17:17] LABS: Glucose,Whole Blood 118 mg/dL (75-99)
--- NOTE | 2019-09-10 17:29 | PN ---
PROGRESS NOTE DATE OF SERVICE: 09/10/2019 REASON FOR FOLLOWUP: Perforated sigmoid diverticulitis with abscess. INTERVAL HISTORY: The patient did have low grade temperature of 100 this morning. The patient is afebrile since then. The patient has been breathing comfortably. No chest pain or cough. Abdominal pain has improved. No nausea, vomiting, diarrhea. PHYSICAL EXAMINATION: Blood pressure 168/73 with a pulse of 91, temperature 98.7. She is 96% on room air. General description is an elderly female up in the chair in no distress. Respiratory system: Unlabored breathing. Clear to auscultation anteriorly. Heart S1, S2. Regular rate and rhythm. ABDOMEN: Soft, no tenderness. LAB: Her creatinine is normal. No CBC was done today. Blood culture negative. DIAGNOSTIC IMPRESSION AND PLAN: Patient with acute sigmoid diverticulitis with microperforation and abscess. Repeat CT did not show any worsening. She did have a low-grade fever slightly concerning. We will repeat a CBC tomorrow. Continue with Zosyn. Monitor clinical course closely. MMODL / IJN: [id number] /
[2019-09-11 00:18] LABS: Glucose,Whole Blood 145 mg/dL (75-99)
[2019-09-11] MEDS: ONDANSETRON 4 MG/2 ML VIAL IVP PRN (02:36)
[2019-09-11] MEDS: METOCLOPRAMIDE 5 MG/ML 2 ML VIAL IVP SCH ×5 (04:58→23:16)
[2019-09-11 05:40] LABS: Glucose,Whole Blood 153 mg/dL (75-99)
[2019-09-11] MEDS: SODIUM CHLORIDE 0.9% 1,000 ML IV SCH ×3 (05:54→21:10)
[2019-09-11] MEDS: metroNIDAZOLE-NS PMX 500 MG in SALINE 1 100ML.BAG IVPB SCH ×2 (07:43→22:05)
[2019-09-11] MEDS: PIPERACILLIN-TAZOBACTAM 3.375 GM in SODIUM CHLORIDE 0.9% 100 ML IVPB SCH ×3 (07:43→23:16)
[2019-09-11 08:17] LABS: Basophils % (A) 0 %; Eosinophils % (A) 0 %; HGB 12.1 gm/dL (11.4-16.0); Lymphocytes # (A) 0.9 k/uL (1.0-4.8); Lymphocytes % (A) 7 %; MCH 27.9 pg (25.0-35.0); MCHC 32.8 g/dL (31.0-37.0); MCV 85.1 fL (80.0-100.0); Mean Platelet Volume 7.3; Monocytes # (A) 0.6 k/uL (0-1.0); Monocytes % (A) 5 %; Neutrophils # (A) 11.2 k/uL (1.3-7.7); Neutrophils % (A) 87 %; Platelet Count 400 k/uL (150-450); RBC 4.35 m/uL (3.80-5.40); RDW 12.6 % (11.5-15.5); WBC 12.9 k/uL (3.8-10.6)
[2019-09-11 09:08] LABS: ALT 29 U/L (4-34); AST 32 U/L (14-36); African American GFR (CKD) >90 (>60 ml/min/1.73 sqM); Albumin 2.6 g/dL (3.5-5.0); Alkaline Phosphatase 195 U/L (38-126); Anion Gap 5 mmol/L; Blood Urea Nitrogen 8 mg/dL (7-17); Calcium 8.9 mg/dL (8.4-10.2); Carbon Dioxide 26 mmol/L (22-30); Chloride 104 mmol/L (98-107); Glucose 161 mg/dL (74-99); Magnesium 1.9 mg/dL (1.6-2.3); Non-African American GFR(CKD) >90 (>60 ml/min/1.73 sqM); Phosphorus 1.7 mg/dL (2.5-4.5); Potassium 2.8 mmol/L (3.5-5.1); Sodium 135 mmol/L (137-145); Total Bilirubin 0.4 mg/dL (0.2-1.3); Total Protein 5.3 g/dL (6.3-8.2)
[2019-09-11] MEDS: ENOXAPARIN 40 MG/0.4 ML SYRINGE SQ SCH (09:23)
[2019-09-11] MEDS: PANTOPRAZOLE 40 MG/10 ML VIAL IVP SCH (09:23)
[2019-09-11] MEDS: MORPHINE SULFATE 4 MG/ML SYRINGE IV PRN ×2 (09:26→23:47)
[2019-09-11] MEDS ORDERED: Potassium Replacement Protocol 1 EACH MISC MISCELLANE PRN (10:21)
[2019-09-11] MEDS: POTASSIUM CHLORIDE 10 MEQ in WATER FOR INJECTION 1 100ML.BAG IVPB SCH ×4 (10:36→19:14)
[2019-09-11 11:51] LABS: Glucose,Whole Blood 152 mg/dL (75-99)
--- NOTE | 2019-09-11 12:39 | P.PN ---
Subjective Progress Note Date: 09/11/19 Courtney Castellano is a 69-year-old female well known to my practice who presented to [facility] emergency room with a chief complaint of abdominal pain that started 3 days prior to admission and has been worsening. Patient describes pain mostly in the left lower quadrant she had episodes of nausea and vomiting she also had diarrhea. She denies any blood in the stools, she had one episode of low-grade fever otherwise no fever or chills no headache or dizziness no chest pain no shortness of breath no cough no burning with urination no frequency or urgency and no hematuria. Patient was evaluated in the emergency room, she had a computed tomography scan of the abdomen and pelvis as outpatient that revealed evidence of acute diverticulitis with pericolonic abscess and pneumoperitoneum in the pelvis and along the diaphragmatic border. She was admitted to the hospital and was started on IV antibiotics. Patient states that she had 1 previous episode of acute diverticulitis while she was in [place] she was treated with antibiotic and improved. She denies any previous surgery on her Colon. She has a known previous history of cholecystectomy, her past medical history also significant for history of breast cancer, history of hypertension, history of hyperlipidemia, and history of valvular heart disease. On 09/07/2019 patient was seen and examined on the medical floor she is alert and oriented 3 in no apparent distress she is still complaining of abdominal pain mostly in the left lower quadrant otherwise she denies any complaints there is no fever or chills no headache or dizziness no chest pain no shortness of breath no cough no nausea or vomiting no diarrhea and no urinary symptoms. On 09/08/2019 patient was seen and examined on the medical floor she is alert and oriented 3 in no apparent distress she is still complaining of mild discomfort in the lower abdominal area otherwise she denies any complaints there is no fever or chills no headache or dizziness no chest pain no shortness of breath no cough no nausea or vomiting there is some diarrhea but no mucus or blood in the stools there is no urinary symptoms. On 09/09/2019 patient was seen and examined on the medical floor she is still complaining of abdominal discomfort white blood count is still elevated at 12.2 patient had 1 episode of dizziness and presyncope while walking in her room, otherwise patient denies any complaints there is no fever or chills no headache no chest pain or shortness of breath no cough no nausea or vomiting, no blood in the stools no burning was urination no frequency or urgency and no hematuria. On 09/10/2019 Patient was seen and examined on the medical floor, she is alert and oriented in no distress, she is still complaining of abdominal pain, there is no fever or chills, no headache or dizziness no chest pain no shortness of breath no cough no nausea or vomiting no diarrhea and no urinary symptoms. On 09/11/2019 Patient was seen and examined on the medical floor, she is alert and oriented in no distress, she is still complaining of abdominal pain, white blood count is up to 12.9 despite antibiotic therapy. Potassium is low patient is receiving potassium replacement protocol. She was evaluated by Dr. Mcgrath and he is planning to proceed with surgery today. Objective - Vital Signs Vital signs: Vital Signs Temp 99.7 F H 09/11/19 07:00 Pulse 103 H 09/11/19 07:00 Resp 18 09/11/19 07:00 BP 174/77 09/11/19 07:00 Pulse Ox 91 L 09/11/19 07:00 Intake & Output 09/10/19 09/11/19 09/11/19 18:59 06:59 18:59 Intake Total 1157.250 Balance 1157.250 Weight 73.8 kg Intake: Intake, IV Titration 1157.250 Amount Amino Acid 4.25%-D10w+ 146.25 Lytes*E* 1,000 ml @ 75 mls/hr IV .BY DURATION [facility] Rx#:[id number] Mvi, Adult No.4 with Vit 1011.000 K 10 ml Trace (Conc-1Ml/ Dose) 1 ml In Amino Acid 4.25%-D10w+Lytes*E* 1,000 ml @ 50 mls/hr IV . [id number] [facility] Rx#:[id number] Other: Voiding Method Toilet # Voids 1 - Exam In general patient is alert and oriented 3 in no apparent distress HEENT head normocephalic and atraumatic Neck is supple no JVD no goiter no lymphadenopathy Chest exam reveals a few scattered crackles no wheezing Cardiac exam reveals regular heart sounds no gallops no murmurs Abdomen is soft with tenderness in the left lower quadrant and periumbilical area no organomegaly with normal bowel sounds Extremity exam reveals no edema no cyanosis or clubbing Neurological examination reveals no gross focal deficit - Labs CBC & Chem 7: 09/11/19 07:51 09/11/19 07:51 Labs: Abnormal Lab Results - Last 24 Hours (Table) 09/10/19 09/11/19 09/11/19 Range/Units 17:14 00:17 05:39 WBC (3.8-10.6) k/uL Neutrophils # (1.3-7.7) k/uL Lymphocytes # (1.0-4.8) k/uL Sodium (137-145) mmol/L Potassium (3.5-5.1) mmol/L Creatinine (0.52-1.04) mg/dL Glucose (74-99) mg/dL POC Glucose (mg/dL) 118 H 145 H 153 H (75-99) mg/dL Phosphorus (2.5-4.5) mg/dL Alkaline Phosphatase (38-126) U/L C-Reactive Protein (<10.0) mg/L Total Protein (6.3-8.2) g/dL Albumin (3.5-5.0) g/dL 09/11/19 09/11/19 09/11/19 Range/Units 07:51 07:51 09:32 WBC 12.9 H (3.8-10.6) k/uL Neutrophils # 11.2 H (1.3-7.7) k/uL Lymphocytes # 0.9 L (1.0-4.8) k/uL Sodium 135 L (137-145) mmol/L Potassium 2.8 L (3.5-5.1) mmol/L Creatinine 0.42 L (0.52-1.04) mg/dL Glucose 161 H (74-99) mg/dL POC Glucose (mg/dL) (75-99) mg/dL Phosphorus 1.7 L (2.5-4.5) mg/dL Alkaline Phosphatase 195 H (38-126) U/L C-Reactive Protein 314.0 H (<10.0) mg/L Total Protein 5.3 L (6.3-8.2) g/dL Albumin 2.6 L (3.5-5.0) g/dL 09/11/19 Range/Units 11:49 WBC (3.8-10.6) k/uL Neutrophils # (1.3-7.7) k/uL Lymphocytes # (1.0-4.8) k/uL Sodium (137-145) mmol/L Potassium (3.5-5.1) mmol/L Creatinine (0.52-1.04) mg/dL Glucose (74-99) mg/dL POC Glucose (mg/dL) 152 H (75-99) mg/dL Phosphorus (2.5-4.5) mg/dL Alkaline Phosphatase (38-126) U/L C-Reactive Protein (<10.0) mg/L Total Protein (6.3-8.2) g/dL Albumin (3.5-5.0) g/dL Microbiology - Last 24 Hours (Table) 09/05/19 16:23 Blood Culture - Preliminary Blood No Growth after 120 hours Assessment and Plan Plan: 1. Acute diverticulitis with abscess and microperforation and pneumoperitoneum, no significant improvement since admission despite antibiotic therapy, patient was evaluated today by Dr. Mcgrath and he plans to proceed with surgery today. 2. Underlying history of hyperlipidemia 3. Previous history of breast cancer 4. History of valvular heart disease At this time patient is maintained on IV antibiotic Zosyn and Flagyl white blood count up from 11.8 to 14.8 and today down to 12.4 Continue current management awaiting further recommendation from infectious disease Protonix for GI prophylaxis, subcu Lovenox for DVT prophylaxis Will follow in a.m.
[2019-09-11] MEDS: 1: MVI, ADULT NO.4 WITH VIT K 10 ML, TRACE (CONC-1ML/DOSE) 1 ML in AMINO ACID 4.25%-D10W IV SCH ×6 (12:42→17:38)
--- NOTE | 2019-09-11 13:41 | P.PN ---
Progress Note - Text Progress Note Date: 09/11/19 The patient has complaints of increased abdominal pain. Her white count is up slightly. On exam patient's tachycardic. She has diffuse abdominal pain with evidence of rebound tenderness. History of perforated diverticulitis with peritonitis. Patient will undergo colectomy with colostomy today.
[2019-09-11] MEDS ORDERED: MIDAZOLAM 2 MG/2 ML VIAL ONE (14:18)
[2019-09-11] MEDS ORDERED: NEOSTIGMINE 1 MG/ML 10 ML VIAL ONE (14:18)
[2019-09-11] MEDS ORDERED: DEXAMETHASONE SOD PHOS (MDV) 100 MG/10 ML VIAL ONE (14:18)
[2019-09-11] MEDS ORDERED: SUCCINYLCHOLINE CHLORIDE 100 MG/5 ML SYR IV ONE (14:18)
[2019-09-11] MEDS ORDERED: LIDOCAINE 1% INJ 10MG/ML (20 ML MDV) ONE (14:18)
[2019-09-11] MEDS ORDERED: GLYCOPYRROLATE 0.2 MG/ML 2 ML VIAL ONE (14:18)
[2019-09-11] MEDS ORDERED: KETOROLAC 30 MG/ML 1 ML VIAL ONE (14:18)
[2019-09-11] MEDS ORDERED: ROCURONIUM BROMIDE 10 MG/ML 5 ML VIAL IV ONE (14:18)
[2019-09-11] MEDS ORDERED: HYDROmorphone (PF) 1 MG/ML ONE (14:18)
[2019-09-11] MEDS ORDERED: fentaNYL (PF) 50 MCG/ML 2 ML AMP ONE (14:18)
[2019-09-11] MEDS ORDERED: ONDANSETRON 4 MG/2 ML VIAL ONE (14:18)
[2019-09-11] MEDS ORDERED: PROPOFOL 10 MG/ML 20 ML VIAL IV ONE (14:18)
[2019-09-11] MEDS ORDERED: PHENYLEPHRINE-0.9% NACL SYG 1 MG/10 ML SYRINGE ONE (14:18)
[2019-09-11] MEDS ORDERED: IV FLUID CONTINUATION 1,000 ML IV ONE (14:20)
--- NOTE | 2019-09-11 16:02 | P.OP ---
Date of Procedure: 09/11/19 Preoperative Diagnosis: Perforated diverticulitis Postoperative Diagnosis: Perforated diverticulitis with pelvic abscess and interloop abscess Procedure(s) Performed: Jacinto procedure Takedown of splenic flexure Drainage of interloop abscess Anesthesia: JUAN DAVIDA Surgeon: Den Mcgrath Estimated Blood Loss (ml): 10 Pathology: other (Sigmoid colon) Condition: stable Disposition: PACU Description of Procedure: The patient's placed on the operative table in the supine position. She received general anesthesia. Her abdomen was prepped and draped usual fashion. The abdomen was entered through a low midline incision. There was. Fluid within the perineal cavity. The quadriceps this wound. The sigmoid colon esophagus inflamed. The small bowel was removed from the pelvis. There was a interloop abscess in the terminal ileum and the small bowel was adherent to the pelvis. A pelvic abscess was drained. At this point the white line of Toldt was divided in the left colon was mobilized. The splenic flexure was mobilized by dividing the splenocolic ligament with the Enseal device. A suitable spot on the descending colon was chosen and the bowel was transected with a GI stapler. And then using the Enseal device the mesentery of the; was divided. The; was adherent to the left elope into this was dissected off of the sigmoid colon. The colon was very inflamed and there was significant inflammation in the pelvis. The colon was quite quite scarred down at this point the rectum was transected with the Metzenbaum scissors and then the rectal stump was oversewn with 0 Vicryl and 3-0 Prolene suture. A Prolene tag was placed. A KATARINA drain is placed in the pelvis and brought out through the right abdominal wall. The specimen sent to pathology. A suitable spot for the colostomy brought up in the left upper quadrant. The abdomen was irrigated there is no bleeding seen. The fascia is closed loop #1 PDS suture. The skin was closed with theodora. Several Telfa oren were placed in the wound. The colostomy then matured with 3-0 Vicryl. Patient tolerated procedure well and was sent to recovery room stable condition.
[2019-09-11] MEDS: FAT EMULSION 20% 250 ML IV SCH (17:54)
[2019-09-11] MEDS: POTASSIUM PHOSPHATE 10 MMOL in SODIUM CHLORIDE 0.9% 250 ML IV SCH ×2 (21:07→23:16)
--- NOTE | 2019-09-11 23:53 | PN ---
PROGRESS NOTE DATE OF SERVICE: 09/11/2019 REASON FOR FOLLOWUP: Acute sigmoid diverticulitis with abscess. INTERVAL HISTORY: The patient did spike a fever of 102 degrees Fahrenheit last night, low-grade fever this morning. White count slightly up at 12.9 today. The patient was evaluated by Surgery and decided to take her to the OR. The patient is status post laparotomy with diverting colostomy. She was noticed to have interloop abscess, has been drained. She was seen in the postop recovery. Overall pain is currently controlled. No chest pain, shortness of breath or cough. PHYSICAL EXAMINATION: Blood pressure 140/67 with pulse of 90, temperature 96.8. T-max 102. General description is an elderly female lying in bed in no distress. RESPIRATORY SYSTEM: Unlabored breathing, clear to auscultation anteriorly. HEART: S1, S2. Regular rate and rhythm. ABDOMEN: Soft. Mild distention and No guarding, no rigidity. LABS: Hemoglobin is 12.1, white count of 12.9, creatinine 0.42. DIAGNOSTIC IMPRESSION AND PLAN: Patient with acute sigmoid diverticulitis with perforation and abscess awaiting medical therapy status post diverting colostomy. We will keep the patient on Zosyn and monitor her clinical course closely. Continue supportive care. MMODL / IJN: [id number] / MTDD
[2019-09-12 00:09] LABS: Glucose,Whole Blood 194 mg/dL (75-99)
[2019-09-12] MEDS: 1: MVI, ADULT NO.4 WITH VIT K 10 ML, TRACE (CONC-1ML/DOSE) 1 ML in AMINO ACID 4.25%-D10W IV SCH ×6 (04:05→16:59)
[2019-09-12] MEDS: metroNIDAZOLE-NS PMX 500 MG in SALINE 1 100ML.BAG IVPB SCH ×4 (04:05→23:18)
[2019-09-12] MEDS: MORPHINE SULFATE 4 MG/ML SYRINGE IV PRN ×4 (04:05→21:34)
[2019-09-12] MEDS: METOCLOPRAMIDE 5 MG/ML 2 ML VIAL IVP SCH ×4 (05:08→23:21)
[2019-09-12] MEDS: SODIUM CHLORIDE 0.9% 1,000 ML IV SCH ×3 (05:11→23:04)
[2019-09-12 05:23] LABS: Glucose,Whole Blood 174 mg/dL (75-99)
[2019-09-12 07:43] LABS: Basophils % (A) 0 %; Eosinophils # (A) 0.1 k/uL (0-0.7); Eosinophils % (A) 0 %; HCT 35.4 % (34.0-46.0); HGB 11.6 gm/dL (11.4-16.0); Lymphocytes # (A) 0.8 k/uL (1.0-4.8); Lymphocytes % (A) 5 %; MCH 28.4 pg (25.0-35.0); MCHC 32.9 g/dL (31.0-37.0); MCV 86.4 fL (80.0-100.0); Mean Platelet Volume 8.3; Monocytes # (A) 0.9 k/uL (0-1.0); Monocytes % (A) 6 %; Neutrophils # (A) 13.5 k/uL (1.3-7.7); Neutrophils % (A) 88 %; Platelet Count 443 k/uL (150-450); RDW 12.7 % (11.5-15.5); WBC 15.3 k/uL (3.8-10.6)
[2019-09-12 07:55] LABS: ALT 20 U/L (4-34); AST 21 U/L (14-36); African American GFR (CKD) >90 (>60 ml/min/1.73 sqM); Albumin 2.2 g/dL (3.5-5.0); Alkaline Phosphatase 153 U/L (38-126); Anion Gap 9 mmol/L; Blood Urea Nitrogen 8 mg/dL (7-17); Calcium 8.2 mg/dL (8.4-10.2); Carbon Dioxide 25 mmol/L (22-30); Chloride 104 mmol/L (98-107); Glucose 185 mg/dL (74-99); Magnesium 1.8 mg/dL (1.6-2.3); Non-African American GFR(CKD) >90 (>60 ml/min/1.73 sqM); Phosphorus 2.4 mg/dL (2.5-4.5); Potassium 3.5 mmol/L (3.5-5.1); Sodium 138 mmol/L (137-145); Total Bilirubin 0.4 mg/dL (0.2-1.3); Total Protein 4.7 g/dL (6.3-8.2)
[2019-09-12] MEDS: PIPERACILLIN-TAZOBACTAM 3.375 GM in SODIUM CHLORIDE 0.9% 100 ML IVPB SCH ×2 (08:50→16:19)
[2019-09-12] MEDS: ENOXAPARIN 40 MG/0.4 ML SYRINGE SQ SCH (08:52)
[2019-09-12] MEDS: PANTOPRAZOLE 40 MG/10 ML VIAL IVP SCH (08:52)
[2019-09-12] MEDS ORDERED: POTASSIUM PHOSPHATE 10 MMOL in SODIUM CHLORIDE 0.9% 250 ML IV ONE (10:00)
--- NOTE | 2019-09-12 10:58 | P.PN ---
Subjective Progress Note Date: 09/12/19 CHIEF COMPLAINT: abdominal pain HISTORY OF PRESENT ILLNESS: Patient is status post Jacinto procedure, takedown of splenic flexure, drainage of interloop abscess, and colostomy creation with Dr. Mcgrath. POD #1. Patients pain is tolerable this morning. She is sitting up in the chair. Denies nausea or vomiting. Ostomy without stool or gas. PHYSICAL EXAM: VITAL SIGNS: Reviewed. GENERAL: Well-developed in no acute distress. HEENT: No sclera icterus. Extraocular movements grossly intact. Moist buccal mucosa. Head is atraumatic, normocephalic. ABDOMEN: Soft. Nondistended. Dressing CDI. Ostomy without stool or gas noted. KATARINA drain with serosanguineous drainage NEUROLOGIC: Alert and oriented. Cranial nerves II through XII grossly intact. ASSESSMENT: 1. Perforated diverticulitis with pelvic abscess and interloop abscess 2. Hiatal hernia PLAN: -Continue antibiotics -Downgrade diet to clear liquids. Await output from colostomy -Activity as tolerated -Incentive spirometer -Consult Ostomy Resource RN for education Nurse practitioner note has been reviewed by physician. Signing provider agrees with the documented findings, assessment, and plan of care. Objective - Vital Signs Vital signs: Vital Signs Temp 98.4 F 09/12/19 07:23 Pulse 98 09/12/19 07:23 Resp 16 09/12/19 07:23 BP 160/103 09/12/19 07:23 Pulse Ox 92 L 09/12/19 07:23 Intake & Output 09/11/19 09/12/19 09/12/19 18:59 06:59 18:59 Intake Total 1946 1150 Output Total 310 1075 400 Balance 1636 75 -400 Intake: IV 900 Intake, IV Titration 1046 1150 Amount Amino Acid 4.25%-D10w+ 35 Lytes*E* 1,000 ml @ 75 mls/hr IV .BY DURATION [facility] Rx#:[id number] Fat Emulsion 20% 250 ml @ 250 20.833 mls/hr IV DAILY@ 1600 [facility] Rx#:[id number] Mvi, Adult No.4 with Vit 1011 K 10 ml Trace (Conc-1Ml/ Dose) 1 ml In Amino Acid 4.25%-D10w+Lytes*E* 1,000 ml @ 75 mls/hr IV .BY DURATION [facility] Rx#: [id number] Piperacillin-Tazobactam 3 100 .375 gm In Sodium Chloride 0.9% 100 ml @ 25 mls/hr IVPB [facility] Rx# :[id number] Potassium Chloride 10 meq 100 In Water For Injection 1 100ml.bag @ 100 mls/hr IVPB Q1HR [facility] Rx#: [id number] Potassium Phosphate 10 500 mmol In Sodium Chloride 0 .9% 250 ml @ 125 mls/hr IV Q2H [facility] Rx#:[id number] metroNIDAZOLE-NS PMX 500 200 mg In Saline 1 100ml.bag @ 100 mls/hr IVPB [facility]8HR [facility] Rx#:[id number] Output: Drainage 10 75 Abdomen 10 75 Urine 200 1000 400 Uretheral (Martinez) 400 Estimated Blood Loss 100 Other: Voiding Method Toilet Indwelling Catheter Indwelling Catheter - Labs CBC & Chem 7: 09/12/19 06:06 09/12/19 06:06 Labs: Abnormal Lab Results - Last 24 Hours (Table) 09/11/19 09/12/19 09/12/19 Range/Units 11:49 00:06 05:17 WBC (3.8-10.6) k/uL Neutrophils # (1.3-7.7) k/uL Lymphocytes # (1.0-4.8) k/uL Creatinine (0.52-1.04) mg/dL Glucose (74-99) mg/dL POC Glucose (mg/dL) 152 H 194 H 174 H (75-99) mg/dL Calcium (8.4-10.2) mg/dL Phosphorus (2.5-4.5) mg/dL Alkaline Phosphatase (38-126) U/L Total Protein (6.3-8.2) g/dL Albumin (3.5-5.0) g/dL 09/12/19 09/12/19 Range/Units 06:06 06:06 WBC 15.3 H (3.8-10.6) k/uL Neutrophils # 13.5 H (1.3-7.7) k/uL Lymphocytes # 0.8 L (1.0-4.8) k/uL Creatinine 0.43 L (0.52-1.04) mg/dL Glucose 185 H (74-99) mg/dL POC Glucose (mg/dL) (75-99) mg/dL Calcium 8.2 L (8.4-10.2) mg/dL Phosphorus 2.4 L (2.5-4.5) mg/dL Alkaline Phosphatase 153 H (38-126) U/L Total Protein 4.7 L (6.3-8.2) g/dL Albumin 2.2 L (3.5-5.0) g/dL Microbiology - Last 24 Hours (Table) 09/05/19 16:23 Blood Culture - Final Blood No Growth after 144 hours
[2019-09-12 11:52] LABS: Glucose,Whole Blood 170 mg/dL (75-99)
--- NOTE | 2019-09-12 14:43 | P.PN ---
Subjective Progress Note Date: 09/12/19 Courtney Castellano is a 69-year-old female well known to my practice who presented to [facility] emergency room with a chief complaint of abdominal pain that started 3 days prior to admission and has been worsening. Patient describes pain mostly in the left lower quadrant she had episodes of nausea and vomiting she also had diarrhea. She denies any blood in the stools, she had one episode of low-grade fever otherwise no fever or chills no headache or dizziness no chest pain no shortness of breath no cough no burning with urination no frequency or urgency and no hematuria. Patient was evaluated in the emergency room, she had a computed tomography scan of the abdomen and pelvis as outpatient that revealed evidence of acute diverticulitis with pericolonic abscess and pneumoperitoneum in the pelvis and along the diaphragmatic border. She was admitted to the hospital and was started on IV antibiotics. Patient states that she had 1 previous episode of acute diverticulitis while she was in [place] she was treated with antibiotic and improved. She denies any previous surgery on her Colon. She has a known previous history of cholecystectomy, her past medical history also significant for history of breast cancer, history of hypertension, history of hyperlipidemia, and history of valvular heart disease. On 09/07/2019 patient was seen and examined on the medical floor she is alert and oriented 3 in no apparent distress she is still complaining of abdominal pain mostly in the left lower quadrant otherwise she denies any complaints there is no fever or chills no headache or dizziness no chest pain no shortness of breath no cough no nausea or vomiting no diarrhea and no urinary symptoms. On 09/08/2019 patient was seen and examined on the medical floor she is alert and oriented 3 in no apparent distress she is still complaining of mild discomfort in the lower abdominal area otherwise she denies any complaints there is no fever or chills no headache or dizziness no chest pain no shortness of breath no cough no nausea or vomiting there is some diarrhea but no mucus or blood in the stools there is no urinary symptoms. On 09/09/2019 patient was seen and examined on the medical floor she is still complaining of abdominal discomfort white blood count is still elevated at 12.2 patient had 1 episode of dizziness and presyncope while walking in her room, otherwise patient denies any complaints there is no fever or chills no headache no chest pain or shortness of breath no cough no nausea or vomiting, no blood in the stools no burning was urination no frequency or urgency and no hematuria. On 09/10/2019 Patient was seen and examined on the medical floor, she is alert and oriented in no distress, she is still complaining of abdominal pain, there is no fever or chills, no headache or dizziness no chest pain no shortness of breath no cough no nausea or vomiting no diarrhea and no urinary symptoms. On 09/11/2019 Patient was seen and examined on the medical floor, she is alert and oriented in no distress, she is still complaining of abdominal pain, white blood count is up to 12.9 despite antibiotic therapy. Potassium is low patient is receiving potassium replacement protocol. She was evaluated by Dr. Mcgrath and he is planning to proceed with surgery today. On 09/12/2019 patient was seen and examined on the medical floor she is alert and oriented 3 in no apparent distress she is complaining of abdominal pain with any movement or cough. Otherwise she denies any complaints, yesterday she underwent surgery with Dr. Mcgrath she had Jacinto procedure with takedown of splenic flexure and drainage of abscess, white blood count is elevated at 15.3 otherwise patient denies any symptoms there is no fever or chills no headache or dizziness no chest pain no shortness of breath no cough no nausea or vomiting and no urinary symptoms Objective - Vital Signs Vital signs: Vital Signs Temp 98.4 F 09/12/19 07:23 Pulse 98 09/12/19 07:23 Resp 16 09/12/19 07:23 BP 160/103 09/12/19 07:23 Pulse Ox 92 L 09/12/19 07:23 Intake & Output 09/11/19 09/12/19 09/12/19 18:59 06:59 18:59 Intake Total 1946 1150 Output Total 310 1075 400 Balance 1636 75 -400 Weight 73.8 kg Intake: IV 900 Intake, IV Titration 1046 1150 Amount Amino Acid 4.25%-D10w+ 35 Lytes*E* 1,000 ml @ 75 mls/hr IV .BY DURATION [facility] Rx#:[id number] Fat Emulsion 20% 250 ml @ 250 20.833 mls/hr IV DAILY@ 1600 [facility] Rx#:[id number] Mvi, Adult No.4 with Vit 1011 K 10 ml Trace (Conc-1Ml/ Dose) 1 ml In Amino Acid 4.25%-D10w+Lytes*E* 1,000 ml @ 75 mls/hr IV .BY DURATION [facility] Rx#: [id number] Piperacillin-Tazobactam 3 100 .375 gm In Sodium Chloride 0.9% 100 ml @ 25 mls/hr IVPB Q8HR [facility] Rx# :[id number] Potassium Chloride 10 meq 100 In Water For Injection 1 100ml.bag @ 100 mls/hr IVPB Q1HR [facility] Rx#: [id number] Potassium Phosphate 10 500 mmol In Sodium Chloride 0 .9% 250 ml @ 125 mls/hr IV Q2H [facility] Rx#:[id number] metroNIDAZOLE-NS PMX 500 200 mg In Saline 1 100ml.bag @ 100 mls/hr IVPB Q8HR [facility] Rx#:[id number] Output: Drainage 10 75 Abdomen 10 75 Urine 200 1000 400 Uretheral (Martinez) 400 Estimated Blood Loss 100 Other: Voiding Method Toilet Indwelling Catheter Indwelling Catheter - Exam In general patient is alert and oriented 3 in no apparent distress HEENT head normocephalic and atraumatic Neck is supple no JVD no goiter no lymphadenopathy Chest exam reveals a few scattered crackles no wheezing Cardiac exam reveals regular heart sounds no gallops no murmurs Abdomen is soft with tenderness in the left lower quadrant and periumbilical area no organomegaly with normal bowel sounds Extremity exam reveals no edema no cyanosis or clubbing Neurological examination reveals no gross focal deficit - Labs CBC & Chem 7: 09/12/19 06:06 09/12/19 06:06 Labs: Abnormal Lab Results - Last 24 Hours (Table) 09/12/19 09/12/19 09/12/19 Range/Units 00:06 05:17 06:06 WBC (3.8-10.6) k/uL Neutrophils # (1.3-7.7) k/uL Lymphocytes # (1.0-4.8) k/uL Creatinine 0.43 L (0.52-1.04) mg/dL Glucose 185 H (74-99) mg/dL POC Glucose (mg/dL) 194 H 174 H (75-99) mg/dL Calcium 8.2 L (8.4-10.2) mg/dL Phosphorus 2.4 L (2.5-4.5) mg/dL Alkaline Phosphatase 153 H (38-126) U/L Total Protein 4.7 L (6.3-8.2) g/dL Albumin 2.2 L (3.5-5.0) g/dL 09/12/19 09/12/19 Range/Units 06:06 11:39 WBC 15.3 H (3.8-10.6) k/uL Neutrophils # 13.5 H (1.3-7.7) k/uL Lymphocytes # 0.8 L (1.0-4.8) k/uL Creatinine (0.52-1.04) mg/dL Glucose (74-99) mg/dL POC Glucose (mg/dL) 170 H (75-99) mg/dL Calcium (8.4-10.2) mg/dL Phosphorus (2.5-4.5) mg/dL Alkaline Phosphatase (38-126) U/L Total Protein (6.3-8.2) g/dL Albumin (3.5-5.0) g/dL Microbiology - Last 24 Hours (Table) 09/05/19 16:23 Blood Culture - Final Blood No Growth after 144 hours Assessment and Plan Plan: 1. Acute diverticulitis with abscess and microperforation and pneumoperitoneum, no significant improvement since admission despite antibiotic therapy, patient was evaluated today by Dr. Mcgrath underwent surgery yesterday as above. 2. Underlying history of hyperlipidemia 3. Previous history of breast cancer 4. History of valvular heart disease At this time patient is maintained on IV antibiotic Zosyn and Flagyl white blood count up from 11.8 to 14.8 and today down to 12.4 Continue current management awaiting further recommendation from infectious disease Protonix for GI prophylaxis, subcu Lovenox for DVT prophylaxis Will follow in a.m.
[2019-09-12] MEDS: ONDANSETRON 4 MG/2 ML VIAL IVP PRN ×2 (15:40→21:34)
[2019-09-12] MEDS: FAT EMULSION 20% 250 ML IV SCH (16:20)
[2019-09-12 16:48] LABS: Glucose,Whole Blood 133 mg/dL (75-99)
--- NOTE | 2019-09-12 18:54 | PN ---
PROGRESS NOTE DATE OF SERVICE: 09/12/2019 REASON FOR FOLLOWUP: Ruptured diverticulitis with peridiverticular abscess. INTERVAL HISTORY: The patient is currently afebrile. The patient is breathing comfortably. The patient's abdominal pain is currently improved. Denies having any chest pain or shortness of breath or cough. PHYSICAL EXAMINATION: Blood pressure 160/100 with a pulse of 105, temperature 99. She is 92% on room air. General description is an elderly female lying in bed in no distress. RESPIRATORY SYSTEM: Unlabored breathing. Clear to auscultation anteriorly. HEART: S1, S2. Regular rate and rhythm. ABDOMEN: Soft. No tenderness. LABS: Hemoglobin 11.6, white count 15.3, BUN of 8, creatinine 0.43. DIAGNOSTIC IMPRESSION AND PLAN: Patient with acute sigmoid diverticulitis with perforation and peridiverticular abscess, status post diverting colostomy. The patient's blood culture is negative. White count slightly jumped after surgery and will be monitored closely. Continue Zosyn and continue supportive care. MMODL / IJN: [id number] /
[2019-09-12] MEDS: METOPROLOL TARTRATE 25 MG TAB PO SCH (21:34)
[2019-09-13] MEDS ORDERED: FUROSEMIDE 10 MG/ML 4 ML VIAL IV STA (00:42)
[2019-09-13] MEDS ORDERED: FUROSEMIDE 10 MG/ML 4 ML VIAL ONE (00:43)
[2019-09-13 00:49] LABS: Glucose,Whole Blood 233 mg/dL (75-99)
[2019-09-13] MEDS ORDERED: HYDROmorphone 1 MG/ML 1 ML SYRINGE IVP PRN (00:54)
[2019-09-13 01:19] LABS: Basophils # (A) 0.1 k/uL (0-0.2); Basophils % (A) 0 %; Eosinophils # (A) 0.4 k/uL (0-0.7); Eosinophils % (A) 2 %; HCT 42.2 % (34.0-46.0); HGB 13.2 gm/dL (11.4-16.0); Lymphocytes # (A) 3.1 k/uL (1.0-4.8); Lymphocytes % (A) 12 %; MCH 27.4 pg (25.0-35.0); MCHC 31.4 g/dL (31.0-37.0); MCV 87.5 fL (80.0-100.0); Mean Platelet Volume 7.3; Monocytes # (A) 1.4 k/uL (0-1.0); Monocytes % (A) 5 %; Neutrophils # (A) 21.8 k/uL (1.3-7.7); Neutrophils % (A) 80 %; RBC 4.83 m/uL (3.80-5.40); RDW 12.7 % (11.5-15.5); WBC 27.3 k/uL (3.8-10.6)
[2019-09-13 01:22] LABS: Glucose,Whole Blood 223 mg/dL (75-99)
--- NOTE | 2019-09-13 01:25 | XR ---
EXAMINATION TYPE: XR chest 1V portable DATE OF EXAM: 09/13/2019 COMPARISON: 07/01/2019 HISTORY: Short of breath TECHNIQUE: FINDINGS: There is pulmonary interstitial and alveolar edema. Thoracic aorta is atheromatous. Heart s ize is fairly normal. There is mild blunting of the right costophrenic angle. IMPRESSION: Pulmonary edema with right pleural effusion is new compared to old exam and more likely r elated to heart failure. RDS not excluded.
[2019-09-13 01:28] LABS: ALT 25 U/L (4-34); AST 42 U/L (14-36); African American GFR (CKD) >90 (>60 ml/min/1.73 sqM); Albumin 2.7 g/dL (3.5-5.0); Alkaline Phosphatase 232 U/L (38-126); Anion Gap 10 mmol/L; Blood Urea Nitrogen 11 mg/dL (7-17); Calcium 8.6 mg/dL (8.4-10.2); Carbon Dioxide 22 mmol/L (22-30); Chloride 102 mmol/L (98-107); Glucose 260 mg/dL (74-99); Magnesium 1.7 mg/dL (1.6-2.3); Non-African American GFR(CKD) >90 (>60 ml/min/1.73 sqM); Phosphorus 3.6 mg/dL (2.5-4.5); Potassium 3.3 mmol/L (3.5-5.1); Sodium 134 mmol/L (137-145); Total Bilirubin 0.5 mg/dL (0.2-1.3); Total Protein 5.7 g/dL (6.3-8.2)
[2019-09-13 01:36] LABS: D-Dimer 8.69 mg/L FEU (<0.60); INR 1.1 (<1.2); Partial Thromboplastin Time 22.2 sec (22.0-30.0); Platelet Count 917 k/uL (150-450); Prothrombin Time 11.3 sec (9.0-12.0)
[2019-09-13] MEDS: ONDANSETRON 4 MG/2 ML VIAL IVP PRN ×3 (03:01→19:55)
[2019-09-13] MEDS: PIPERACILLIN-TAZOBACTAM 3.375 GM in SODIUM CHLORIDE 0.9% 100 ML IVPB SCH ×3 (04:05→16:21)
[2019-09-13 05:31] LABS: HCT 35.8 % (34.0-46.0); HGB 11.5 gm/dL (11.4-16.0); MCH 27.6 pg (25.0-35.0); MCHC 32.1 g/dL (31.0-37.0); MCV 85.7 fL (80.0-100.0); Platelet Count 455 k/uL (150-450); RBC 4.17 m/uL (3.80-5.40); RDW 12.7 % (11.5-15.5); WBC 20.1 k/uL (3.8-10.6)
[2019-09-13 05:48] LABS: African American GFR (CKD) >90 (>60 ml/min/1.73 sqM); Anion Gap 5 mmol/L; Blood Urea Nitrogen 12 mg/dL (7-17); Calcium 8.5 mg/dL (8.4-10.2); Carbon Dioxide 30 mmol/L (22-30); Chloride 101 mmol/L (98-107); Glucose 185 mg/dL (74-99); Magnesium 1.7 mg/dL (1.6-2.3); Non-African American GFR(CKD) >90 (>60 ml/min/1.73 sqM); Phosphorus 2.5 mg/dL (2.5-4.5); Sodium 136 mmol/L (137-145)
[2019-09-13] MEDS ORDERED: Magnesium Replacement Protocol 1 EACH MISC MISCELLANE PRN (05:52)
[2019-09-13] MEDS: 1: MVI, ADULT NO.4 WITH VIT K 10 ML, TRACE (CONC-1ML/DOSE) 1 ML in AMINO ACID 4.25%-D10W IV SCH ×3 (06:35)
[2019-09-13] MEDS: METOCLOPRAMIDE 5 MG/ML 2 ML VIAL IVP SCH ×3 (06:35→17:37)
[2019-09-13] MEDS: SODIUM CHLORIDE 0.9% 1,000 ML IV SCH (06:36)
[2019-09-13] MEDS: POTASSIUM CHLORIDE ER 20 MEQ TAB.ER PO SCH ×2 (06:36→09:34)
[2019-09-13] MEDS: MAGNESIUM SULFATE-D5W PMX 1 GM in DEXTROSE/WATER 1 100ML.BAG IVPB SCH ×2 (06:36→07:48)
[2019-09-13 06:39] LABS: Glucose,Whole Blood 139 mg/dL (75-99)
--- NOTE | 2019-09-13 07:29 | XR ---
EXAMINATION TYPE: XR chest 1V portable DATE OF EXAM: 09/13/2019 COMPARISON: 09/13/2019 earlier exam INDICATION: Pulmonary edema TECHNIQUE: Single frontal view of the chest is obtained. FINDINGS: The heart size is normal. The pulmonary vasculature is normal. There is a right lower lobe infiltrate on residual atypical pulmonary edema could be considered. Left costophrenic angle is visualized. Infiltrate within the perihilar regions has improved. IMPRESSION: 1. Findings can be compatible with resolving pulmonary edema. Residual right lower lobe atypical pulm onary edema or pneumonia may be present. Continued follow-up is recommended.
[2019-09-13] MEDS: MORPHINE SULFATE 4 MG/ML SYRINGE IV PRN (08:00)
[2019-09-13] MEDS ORDERED: FUROSEMIDE 10 MG/ML 4 ML VIAL IV SCH (08:00)
[2019-09-13] MEDS: metroNIDAZOLE-NS PMX 500 MG in SALINE 1 100ML.BAG IVPB SCH ×2 (09:33→15:41)
[2019-09-13] MEDS: ENOXAPARIN 40 MG/0.4 ML SYRINGE SQ SCH (09:34)
[2019-09-13] MEDS: METOPROLOL TARTRATE 25 MG TAB PO SCH ×2 (09:34→21:00)
[2019-09-13] MEDS: PANTOPRAZOLE 40 MG/10 ML VIAL IVP SCH (09:35)
[2019-09-13] MEDS: FUROSEMIDE 10 MG/ML 4 ML VIAL IV SCH (09:55)
[2019-09-13 11:49] LABS: Glucose,Whole Blood 179 mg/dL (75-99)
--- NOTE | 2019-09-13 13:24 | P.PN ---
Subjective Progress Note Date: 09/13/19 CHIEF COMPLAINT: abdominal pain HISTORY OF PRESENT ILLNESS: Patient is status post Jacinto procedure, takedown of splenic flexure, drainage of interloop abscess, and colostomy creation with Dr. Mcgrath. POD #2. Patient was transferred to the ICU yesterday due to respiratory distress. She has been started on IV Lasix. Patient states her pain is tolerable at this time. Denies nausea or vomiting. Tolerating clear liquid diet. Ostomy without stool or gas noted. PHYSICAL EXAM: VITAL SIGNS: Reviewed. GENERAL: Well-developed in no acute distress. HEENT: No sclera icterus. Extraocular movements grossly intact. Moist buccal mucosa. Head is atraumatic, normocephalic. ABDOMEN: Soft. Nondistended. Dressing CDI. Ostomy without stool or gas noted. KATARINA drain with serosanguineous drainage NEUROLOGIC: Alert and oriented. Cranial nerves II through XII grossly intact. ASSESSMENT: 1. Perforated diverticulitis with pelvic abscess and interloop abscess 2. Hiatal hernia PLAN: -Continue antibiotics -Continue clear liquids. Await output from colostomy. Continue TPN -Activity as tolerated -Incentive spirometer -Pulmonary management per Dr. Ga Nurse practitioner note has been reviewed by physician. Signing provider agrees with the documented findings, assessment, and plan of care. Objective - Vital Signs Vital signs: Vital Signs Temp 97.9 F 09/13/19 09:00 Pulse 86 09/13/19 12:00 Resp 20 09/13/19 12:00 BP 127/80 09/13/19 12:00 Pulse Ox 94 L 09/13/19 12:00 Intake & Output 09/12/19 09/13/19 09/13/19 18:59 06:59 18:59 Intake Total 1801 956.6 500 Output Total 975 2045 1850 Balance 826 -1088.4 -1350 Weight 73.8 kg 78.6 kg Intake: IV 716.6 500 Fat Emulsion 20% 250 ml @ 41.6 20.833 mls/hr IV DAILY@ 1600 [facility] Rx#:[id number] Mvi, Adult No.4 with Vit 450 300 K 10 ml Trace (Conc-1Ml/ Dose) 1 ml In Amino Acid 4.25%-D10w+Lytes*E* 1,000 ml @ 75 mls/hr IV .BY DURATION [facility] Rx#: [id number] Piperacillin-Tazobactam 3 125 100 .375 gm In Sodium Chloride 0.9% 100 ml @ 25 mls/hr IVPB Q8HR [facility] Rx# :[id number] metroNIDAZOLE-NS PMX 500 100 100 mg In Saline 1 100ml.bag @ 100 mls/hr IVPB Q8HR [facility] Rx#:[id number] Intake, IV Titration 1261 Amount Mvi, Adult No.4 with Vit 1011 K 10 ml Trace (Conc-1Ml/ Dose) 1 ml In Amino Acid 4.25%-D10w+Lytes*E* 1,000 ml @ 75 mls/hr IV .BY DURATION [facility] Rx#: [id number] Potassium Phosphate 10 250 mmol In Sodium Chloride 0 .9% 250 ml @ 125 mls/hr IV ONCE ONE Rx#:[id number] Oral 540 240 Output: Drainage 50 15 Abdomen 50 15 Urine 925 2030 1850 Uretheral (Martinez) 400 Other: Voiding Method Indwelling Catheter Indwelling Catheter Indwelling Catheter # Voids 350 - Labs CBC & Chem 7: 09/13/19 05:19 09/13/19 05:19 Labs: Abnormal Lab Results - Last 24 Hours (Table) 09/12/19 09/13/19 09/13/19 Range/Units 16:46 00:47 01:03 WBC (3.8-10.6) k/uL Plt Count (150-450) k/uL Neutrophils # (1.3-7.7) k/uL Monocytes # (0-1.0) k/uL D-Dimer (<0.60) mg/L FEU Sodium 134 L (137-145) mmol/L Potassium 3.3 L (3.5-5.1) mmol/L Creatinine 0.46 L (0.52-1.04) mg/dL Glucose 260 H (74-99) mg/dL POC Glucose (mg/dL) 133 H 233 H (75-99) mg/dL Plasma Lactic Acid Bereket (0.7-2.0) mmol/L AST 42 H (14-36) U/L Alkaline Phosphatase 232 H (38-126) U/L Total Protein 5.7 L (6.3-8.2) g/dL Albumin 2.7 L (3.5-5.0) g/dL 09/13/19 09/13/19 09/13/19 Range/Units 01:03 01:03 01:03 WBC 27.3 H (3.8-10.6) k/uL Plt Count 917 H D (150-450) k/uL Neutrophils # 21.8 H (1.3-7.7) k/uL Monocytes # 1.4 H (0-1.0) k/uL D-Dimer 8.69 H (<0.60) mg/L FEU Sodium (137-145) mmol/L Potassium (3.5-5.1) mmol/L Creatinine (0.52-1.04) mg/dL Glucose (74-99) mg/dL POC Glucose (mg/dL) (75-99) mg/dL Plasma Lactic Acid Bereket 2.4 H* (0.7-2.0) mmol/L AST (14-36) U/L Alkaline Phosphatase (38-126) U/L Total Protein (6.3-8.2) g/dL Albumin (3.5-5.0) g/dL 09/13/19 09/13/19 09/13/19 Range/Units 01:20 05:19 05:19 WBC 20.1 H (3.8-10.6) k/uL Plt Count 455 H (150-450) k/uL Neutrophils # (1.3-7.7) k/uL Monocytes # (0-1.0) k/uL D-Dimer (<0.60) mg/L FEU Sodium 136 L (137-145) mmol/L Potassium 3.0 L (3.5-5.1) mmol/L Creatinine 0.47 L (0.52-1.04) mg/dL Glucose 185 H (74-99) mg/dL POC Glucose (mg/dL) 223 H (75-99) mg/dL Plasma Lactic Acid Bereket (0.7-2.0) mmol/L AST (14-36) U/L Alkaline Phosphatase (38-126) U/L Total Protein (6.3-8.2) g/dL Albumin (3.5-5.0) g/dL 09/13/19 09/13/19 Range/Units 06:37 11:48 WBC (3.8-10.6) k/uL Plt Count (150-450) k/uL Neutrophils # (1.3-7.7) k/uL Monocytes # (0-1.0) k/uL D-Dimer (<0.60) mg/L FEU Sodium (137-145) mmol/L Potassium (3.5-5.1) mmol/L Creatinine (0.52-1.04) mg/dL Glucose (74-99) mg/dL POC Glucose (mg/dL) 139 H 179 H (75-99) mg/dL Plasma Lactic Acid Bereket (0.7-2.0) mmol/L AST (14-36) U/L Alkaline Phosphatase (38-126) U/L Total Protein (6.3-8.2) g/dL Albumin (3.5-5.0) g/dL
--- NOTE | 2019-09-13 13:58 | P.CNPUL ---
History of Present Illness Consult date: 09/13/19 Requesting physician: Leslie Estrada Reason for consult: dyspnea, hypoxemia, abnormal CXR/CT Chief complaint: Acute hypoxic rest or a failure, pulmonary edema History of present illness: 69-year-old female patient of Dr. Estrada with past medical history of left breast cancer status post lumpectomy with chemo and radiation, diverticulitis, former smoker, who presented to the emergency department on 09/05/2019 with complaints of abdominal pain that was intermittent in nature in the left lower quadrant for 2 weeks prior to presentation. Patient has previous history of diverticulitis treated in the [facility], she received IV antibiotics followed with 10 day course of oral antibiotics after discharge home. She had abdominal CT with contrast ordered by urgent care staff, she was directed to the emergency department based on the findings of the CT of the abdomen did show sigmoid diverticulitis, intramural abscess and acute abdomen. She was evaluated by surgical services and was initially treated with antibiotics in the form of Zosyn. Urinalysis was negative,COVID PCR was negative. Patient was on regular medical surgical floor, however she continued with abdominal pain, and her white blood cell count was rising despite antibiotic treatments. On 09/12/2019 patient was taken to surgery for Gomez's procedure with colostomy, takedown of splenic flexure, and drainage of pelvic abscess. In the postoperative period patient developed hypoxemia, d-dimer was obtained is elevated at 8.69, and those concerned about possibility of pulmonary embolism, however chest x-ray showed pulmonary interstitial and alveolar edema, patient had received significant amount of fluids since admission, and today on 09/13/2019 Patient Is up 9 Kg since admission. CTA chest was canceled as a chest x-ray was quite abnormal, explaining patient's hypoxic state. Patient was started on IV diuretics, she was transferred to the intensive care unit where she required BiPAP support for a few hours. The patient diureses her breathing has significantly improved, and today's chest x-ray shows resolving pulmonary edema, and residual right lower lobe infiltrate. She has diuresed over 3 L in the last 24 hours, she is significantly better, FiO2 is currently down to 4 L, patient is sitting up in c hair, no acute distress. She is in sinus mechanism, she had a echocardiogram in June 2019 which showed EF of 55-60%, no evidence of aortic stenosis, mild mitral and tricuspid regurgitation, no evidence of pulmonary hypertension with right-sided pressures of 31.1 mmHg. Low-grade fever last night of 100.3F, patient remains on antibiotics, infectious disease is following, blood cultures have been negative. Afebrile today, no vasopressors, her IV fluids have been cut back to 50 ML per hour from 125 ML per hour. Review of Systems All systems: negative Constitutional: Denies chills, Denies fever Eyes: denies blurred vision, denies pain Ears, nose, mouth and throat: Denies headache, Denies sore throat Cardiovascular: Denies chest pain, Denies shortness of breath Respiratory: Reports dyspnea, Denies cough Gastrointestinal: Reports abdominal pain, Reports nausea, Denies diarrhea, Denies vomiting Genitourinary: Denies dysuria, Denies hematuria Musculoskeletal: Denies myalgias Integumentary: Denies pruritus, Denies rash Neurological: Denies numbness, Denies weakness Psychiatric: Denies anxiety, Denies depression Endocrine: Denies fatigue, Denies weight change Past Medical History Past Medical History: Cancer Additional Past Medical History / Comment(s): Do not use left arm for IV or BP- left breast CA with lumpectomy and radiation and chemo. diverticulitis History of Any Multi-Drug Resistant Organisms: None Reported Past Surgical History: Breast Surgery, Cholecystectomy, Tonsillectomy Additional Past Surgical History / Comment(s): L breast lumpectomy 2002. Past Anesthesia/Blood Transfusion Reactions: Motion Sickness Additional Past Anesthesia/Blood Transfusion Reaction / Comment(s): Pt has never recieved blood. Past Psychological History: No Psychological Hx Reported Additional Psychological History / Comment(s): Pt resides with her spouse of 33 yrs. She is independent. She uses no assistive device. She drives. Smoking Status: Former smoker Past Alcohol Use History: Occasional Additional Past Alcohol Use History / Comment(s): Pt states she started smoking in 1969 and quit in 1990. Pt has 1-2 glasses of wine/beer almost daily. Past Drug Use History: None Reported - Past Family History Father Family Medical History: Myocardial Infarction (AL) Additional Family Medical History / Comment(s): Father had a AL in his 60's. He from a post op hip infection at age 73 yrs. no gallbladder disease Mother Family Medical History: Eye Disorder, Hypertension Additional Family Medical History / Comment(s): Mother had glaucoma. She at age 82 yrs. Medications and Allergies Home Medications Medication Instructions Recorded Confirmed Type Simvastatin [Zocor] 20 mg PO HS 07/01/19 09/05/19 History Aspirin/Acetaminophen/Caffeine 1 - 2 tab PO DAILY PRN 09/05/19 09/05/19 History [Excedrin Extra Strength Caplet] Calcium Carbonate [Tums] 500 - 1,000 mg PO QID PRN 09/05/19 09/05/19 History Ondansetron Odt [Zofran Odt] 8 mg PO Q8H PRN 09/05/19 09/05/19 History Hydrocodone/Acetaminophen [[place] 1 tab PO Q6HR PRN #10 tab 09/12/19 Rx 5-325] Allergies Allergy/AdvReac Type Severity Reaction Status Date / Time bee venom protein (honey bee) Allergy Anaphylaxis Verified 09/05/19 15:55 Physical Exam Vitals: Vital Signs Temp Pulse Pulse Resp BP BP BP 09/13/19 12:00 86 20 127/80 09/13/19 11:52 21 09/13/19 11:00 104 H 21 126/68 09/13/19 10:00 101 H 14 134/79 09/13/19 09:00 97.9 F 100 26 H 134/79 09/13/19 08:00 105 H 26 H 129/89 09/13/19 07:00 105 H 20 122/83 09/13/19 06:00 101 H 17 127/83 09/13/19 05:00 103 H 15 128/86 09/13/19 04:00 98.6 F 96 20 121/85 09/13/19 03:00 98 20 106/88 09/13/19 02:00 98.4 F 103 H 23 120/78 09/13/19 00:53 122 H 42 H 140/86 09/13/19 00:49 125 H 45 H 188/127 09/13/19 00:43 122 H 46 H 185/126 09/13/19 00:38 98.1 F 121 H 46 H 191/129 09/12/19 23:18 20 09/12/19 19:34 98.6 F 124 H 20 150/92 09/12/19 19:30 19 09/12/19 19:16 100.3 F H 111 H 19 170/88 09/12/19 14:12 99.0 F 105 H 16 161/102 Pulse Ox 09/13/19 12:00 94 L 09/13/19 11:52 09/13/19 11:00 95 09/13/19 10:00 93 L 09/13/19 09:00 91 L 09/13/19 08:00 91 L 09/13/19 07:00 93 L 09/13/19 06:00 95 09/13/19 05:00 95 09/13/19 04:00 97 09/13/19 03:00 96 09/13/19 02:00 94 L 09/13/19 00:53 82 L 09/13/19 00:49 82 L 09/13/19 00:43 81 L 09/13/19 00:38 80 L 09/12/19 23:18 09/12/19 19:34 94 L 09/12/19 19:30 09/12/19 19:16 93 L 09/12/19 14:12 92 L Intake and Output 09/12/19 09/13/19 09/13/19 22:59 06:59 14:59 Intake Total 1801 956.6 500 Output Total 575 2045 1850 Balance 1226 -1088.4 -1350 Intake: IV 716.6 500 Fat Emulsion 20% 250 ml @ 41.6 20.833 mls/hr IV DAILY@ 1600 [facility] Rx#:[id number] Mvi, Adult No.4 with Vit 450 300 K 10 ml Trace (Conc-1Ml/ Dose) 1 ml In Amino Acid 4.25%-D10w+Lytes*E* 1,000 ml @ 75 mls/hr IV .BY DURATION [facility] Rx#: [id number] Piperacillin-Tazobactam 3 125 100 .375 gm In Sodium Chloride 0.9% 100 ml @ 25 mls/hr IVPB Q8HR [facility] Rx# :[id number] metroNIDAZOLE-NS PMX 500 100 100 mg In Saline 1 100ml.bag @ 100 mls/hr IVPB Q8HR [facility] Rx#:[id number] Intake, IV Titration 1261 Amount Mvi, Adult No.4 with Vit 1011 K 10 ml Trace (Conc-1Ml/ Dose) 1 ml In Amino Acid 4.25%-D10w+Lytes*E* 1,000 ml @ 75 mls/hr IV .BY DURATION [facility] Rx#: [id number] Potassium Phosphate 10 250 mmol In Sodium Chloride 0 .9% 250 ml @ 125 mls/hr IV ONCE ONE Rx#:[id number] Oral 540 240 Output: Drainage 50 15 Abdomen 50 15 Urine 525 2030 1850 Other: Voiding Method Indwelling Catheter Indwelling Catheter Indwelling Catheter # Voids 350 Weight 78.6 kg GENERAL EXAM: Alert, very pleasant, 69-year-old white female, on 4 L of oxygen, sitting up in a chair, in no acute distress comfortable in no apparent distress. HEAD: Normocephalic/atraumatic. EYES: Normal reaction of pupils, equal size. Conjunctiva pink, sclera white. NOSE: Clear with pink turbinates. THROAT: No erythema or exudates. NECK: No masses, no JVD, no thyroid enlargement, no adenopathy. CHEST: No chest wall deformity. Symmetrical expansion. LUNGS: Equal air entry with no crackles, wheeze, rhonchi or dullness. CVS: Regular rate and rhythm, normal S1 and S2, no gallops, no murmurs, no rubs ABDOMEN: Soft, nontender. No hepatosplenomegaly, normal bowel sounds, no guarding or rigidity. Abdominal incision is clean dry and intact, covered with surgical dressing, colostomy without output or gas, KATARINA drain with serosan guineous output EXTREMITIES: No clubbing, no edema, no cyanosis, 2+ pulses and upper and lower extremities. MUSCULOSKELETAL: Muscle strength and tone normal. SPINE: No scoliosis or deformity SKIN: No rashes CENTRAL NERVOUS SYSTEM: Alert and oriented -3. No focal deficits, tone is normal in all 4 extremities. PSYCHIATRIC: Alert and oriented -3. Appropriate affect. Intact judgment and insight. Results - Laboratory Findings CBC and BMP: 09/13/19 05:19 09/13/19 05:19 PT/INR, D-dimer PT 11.3 sec (9.0-12.0) 09/13/19 01:03 INR 1.1 (<1.2) 09/13/19 01:03 D-Dimer 8.69 mg/L FEU (<0.60) H 09/13/19 01:03 Abnormal lab findings: Abnormal Labs 09/05/19 09/06/19 09/06/19 17:20 11:00 11:00 WBC 11.8 H Plt Count Neutrophils # 9.5 H Lymphocytes # Monocytes # D-Dimer Sodium Potassium Carbon Dioxide BUN Creatinine Glucose POC Glucose (mg/dL) Plasma Lactic Acid Bereket Calcium Phosphorus AST Alkaline Phosphatase C-Reactive Protein Total Protein Albumin 3.4 L Ur Specific [place] 1.043 H Urine Ketones Trace H 09/07/19 09/07/19 09/08/19 06:48 06:48 07:30 WBC 14.8 H 12.0 H Plt Count Neutrophils # 11.7 H 9.4 H Lymphocytes # Monocytes # D-Dimer Sodium 136 L Potassium Carbon Dioxide 21 L BUN Creatinine Glucose POC Glucose (mg/dL) Plasma Lactic Acid Bereket Calcium Phosphorus AST Alkaline Phosphatase C-Reactive Protein Total Protein Albumin Ur Specific [place] Urine Ketones 09/09/19 09/09/19 09/10/19 06:10 06:10 01:13 WBC 12.2 H Plt Count Neutrophils # 9.8 H Lymphocytes # Monocytes # D-Dimer Sodium Potassium 3.3 L Carbon Dioxide BUN 2 L Creatinine Glucose POC Glucose (mg/dL) 143 H Plasma Lactic Acid Bereket Calcium Phosphorus AST Alkaline Phosphatase C-Reactive Protein Total Protein Albumin Ur Specific [place] Urine Ketones 09/10/19 09/10/19 09/10/19 06:02 08:26 11:33 WBC Plt Count Neutrophils # Lymphocytes # Monocytes # D-Dimer Sodium 136 L Potassium Carbon Dioxide BUN Creatinine 0.51 L Glucose 169 H POC Glucose (mg/dL) 146 H 142 H Plasma Lactic Acid Bereket Calcium Phosphorus 2.0 L AST Alkaline Phosphatase C-Reactive Protein Total Protein Albumin Ur Specific [place] Urine Ketones 09/10/19 09/11/19 09/11/19 17:14 00:17 05:39 WBC Plt Count Neutrophils # Lymphocytes # Monocytes # D-Dimer Sodium Potassium Carbon Dioxide BUN Creatinine Glucose POC Glucose (mg/dL) 118 H 145 H 153 H Plasma Lactic Acid Bereket Calcium Phosphorus AST Alkaline Phosphatase C-Reactive Protein Total Protein Albumin Ur Specific [place] Urine Ketones 09/11/19 09/11/19 09/11/19 07:51 07:51 09:32 WBC 12.9 H Plt Count Neutrophils # 11.2 H Lymphocytes # 0.9 L Monocytes # D-Dimer Sodium 135 L Potassium 2.8 L Carbon Dioxide BUN Creatinine 0.42 L Glucose 161 H POC Glucose (mg/dL) Plasma Lactic Acid Bereket Calcium Phosphorus 1.7 L AST Alkaline Phosphatase 195 H C-Reactive Protein 314.0 H Total Protein 5.3 L Albumin 2.6 L Ur Specific [place] Urine Ketones 09/11/19 09/12/19 09/12/19 11:49 00:06 05:17 WBC Plt Count Neutrophils # Lymphocytes # Monocytes # D-Dimer Sodium Potassium Carbon Dioxide BUN Creatinine Glucose POC Glucose (mg/dL) 152 H 194 H 174 H Plasma Lactic Acid Bereket Calcium Phosphorus AST Alkaline Phosphatase C-Reactive Protein Total Protein Albumin Ur Specific [place] Urine Ketones 09/12/19 09/12/19 09/12/19 06:06 06:06 11:39 WBC 15.3 H Plt Count Neutrophils # 13.5 H Lymphocytes # 0.8 L Monocytes # D-Dimer Sodium Potassium Carbon Dioxide BUN Creatinine 0.43 L Glucose 185 H POC Glucose (mg/dL) 170 H Plasma Lactic Acid Bereket Calcium 8.2 L Phosphorus 2.4 L AST Alkaline Phosphatase 153 H C-Reactive Protein Total Protein 4.7 L Albumin 2.2 L Ur Specific [place] Urine Ketones 09/12/19 09/13/19 09/13/19 16:46 00:47 01:03 WBC Plt Count Neutrophils # Lymphocytes # Monocytes # D-Dimer Sodium 134 L Potassium 3.3 L Carbon Dioxide BUN Creatinine 0.46 L Glucose 260 H POC Glucose (mg/dL) 133 H 233 H Plasma Lactic Acid Bereket Calcium Phosphorus AST 42 H Alkaline Phosphatase 232 H C-Reactive Protein Total Protein 5.7 L Albumin 2.7 L Ur Specific [place] Urine Ketones 09/13/19 09/13/19 09/13/19 01:03 01:03 01:03 WBC 27.3 H Plt Count 917 H D Neutrophils # 21.8 H Lymphocytes # Monocytes # 1.4 H D-Dimer 8.69 H Sodium Potassium Carbon Dioxide BUN Creatinine Glucose POC Glucose (mg/dL) Plasma Lactic Acid Bereket 2.4 H* Calcium Phosphorus AST Alkaline Phosphatase C-Reactive Protein Total Protein Albumin Ur Specific [place] Urine Ketones 09/13/19 09/13/19 09/13/19 01:20 05:19 05:19 WBC 20.1 H Plt Count 455 H Neutrophils # Lymphocytes # Monocytes # D-Dimer Sodium 136 L Potassium 3.0 L Carbon Dioxide BUN Creatinine 0.47 L Glucose 185 H POC Glucose (mg/dL) 223 H Plasma Lactic Acid Bereket Calcium Phosphorus AST Alkaline Phosphatase C-Reactive Protein Total Protein Albumin Ur Specific [place] Urine Ketones 09/13/19 09/13/19 06:37 11:48 WBC Plt Count Neutrophils # Lymphocytes # Monocytes # D-Dimer Sodium Potassium Carbon Dioxide BUN Creatinine Glucose POC Glucose (mg/dL) 139 H 179 H Plasma Lactic Acid Bereket Calcium Phosphorus AST Alkaline Phosphatase C-Reactive Protein Total Protein Albumin Ur Specific [place] Urine Ketones - Diagnostic Findings Chest x-ray: report reviewed, image reviewed Additional studies: CT abdomen and pelvis reviewed Assessment and Plan Plan: Assessment: #1. Acute hypoxic respiratory failure related to loud overload, pulmonary edema, possibility of CHF exacerbation with previously documented preserved LV function #2. Acute perforated diverticulitis with pelvic abscess and interloop abscess, status post Gomez's procedure, takedown of splenic flexure, and drainage of interloop abscess and colostomy creation, postoperative day 1 #3. Hyperlipidemia #4. History of left breast cancer in 2002, status post lumpectomy and chemoradiation #5. History of nicotine dependence, currently in remission Plan: Continue weaning FiO2, we'll cut back the IV Lasix to once daily, patient diuresed overnight, she is feeling much better, today's chest x-ray was reviewed showing resolving pulmonary edema. Continue with antibiotics per ID service recommendations. Discontinue BiPAP. Patient is doing well. She is up in a chair, increase activity as tolerated, diet per surgical services. Pain is reasonably controlled, she'll be monitored in the ICU today. Will continue to follow I performed a history & physical examination of the patient and discussed their management with my nurse practitioner, Ave Valenzuela. I reviewed the nurse practitioner's note and agree with the documented findings and plan of care. Lung sounds are positive for diminished breath sounds the lung clemons. The findings and the impression was discussed with the patient. I attest to the documentation by the nurse practitioner. Time with Patient: Greater than 30
--- NOTE | 2019-09-13 15:03 | P.PN ---
Subjective Progress Note Date: 09/13/19 Courtney Castellano is a 69-year-old female well known to my practice who presented to [facility] emergency room with a chief complaint of abdominal pain that started 3 days prior to admission and has been worsening. Patient describes pain mostly in the left lower quadrant she had episodes of nausea and vomiting she also had diarrhea. She denies any blood in the stools, she had one episode of low-grade fever otherwise no fever or chills no headache or dizziness no chest pain no shortness of breath no cough no burning with urination no frequency or urgency and no hematuria. Patient was evaluated in the emergency room, she had a computed tomography scan of the abdomen and pelvis as outpatient that revealed evidence of acute diverticulitis with pericolonic abscess and pneumoperitoneum in the pelvis and along the diaphragmatic border. She was admitted to the hospital and was started on IV antibiotics. Patient states that she had 1 previous episode of acute diverticulitis while she was in [place] she was treated with antibiotic and improved. She denies any previous surgery on her Colon. She has a known previous history of cholecystectomy, her past medical history also significant for history of breast cancer, history of hypertension, history of hyperlipidemia, and history of valvular heart disease. On 09/07/2019 patient was seen and examined on the medical floor she is alert and oriented 3 in no apparent distress she is still complaining of abdominal pain mostly in the left lower quadrant otherwise she denies any complaints there is no fever or chills no headache or dizziness no chest pain no shortness of breath no cough no nausea or vomiting no diarrhea and no urinary symptoms. On 09/08/2019 patient was seen and examined on the medical floor she is alert and oriented 3 in no apparent distress she is still complaining of mild discomfort in the lower abdominal area otherwise she denies any complaints there is no fever or chills no headache or dizziness no chest pain no shortness of breath no cough no nausea or vomiting there is some diarrhea but no mucus or blood in the stools there is no urinary symptoms. On 09/09/2019 patient was seen and examined on the medical floor she is still complaining of abdominal discomfort white blood count is still elevated at 12.2 patient had 1 episode of dizziness and presyncope while walking in her room, otherwise patient denies any complaints there is no fever or chills no headache no chest pain or shortness of breath no cough no nausea or vomiting, no blood in the stools no burning was urination no frequency or urgency and no hematuria. On 09/10/2019 Patient was seen and examined on the medical floor, she is alert and oriented in no distress, she is still complaining of abdominal pain, there is no fever or chills, no headache or dizziness no chest pain no shortness of breath no cough no nausea or vomiting no diarrhea and no urinary symptoms. On 09/11/2019 Patient was seen and examined on the medical floor, she is alert and oriented in no distress, she is still complaining of abdominal pain, white blood count is up to 12.9 despite antibiotic therapy. Potassium is low patient is receiving potassium replacement protocol. She was evaluated by Dr. Mcgrath and he is planning to proceed with surgery today. On 09/12/2019 patient was seen and examined on the medical floor she is alert and oriented 3 in no apparent distress she is complaining of abdominal pain with any movement or cough. Otherwise she denies any complaints, yesterday she underwent surgery with Dr. Mcgrath she had Jacinto procedure with takedown of splenic flexure and drainage of abscess, white blood count is elevated at 15.3 otherwise patient denies any symptoms there is no fever or chills no headache or dizziness no chest pain no shortness of breath no cough no nausea or vomiting and no urinary symptoms On 09/13/2019 patient was seen and examined in the ICU she is alert and oriented 3 in no apparent distress she is sitting up in a chair, last night patient had episode of severe shortness of breath, chest x-ray revealed evidence of flash pulmonary edema, she was transferred to ICU she required BiPAP and IV Lasix, IV fluid Were decreased, patient is doing much better at this time, there is no fever or chills no headache or dizziness no chest pain no shortness of breath no cough no nausea or vomiting no abdominal pain no diarrhea and no urinary symptoms, colostomy bag is empty without any liquid stool management, drainage bag reveals small amount of bloody drainage. Objective - Vital Signs Vital signs: Vital Signs Temp 97.9 F 09/13/19 09:00 Pulse 92 09/13/19 14:00 Resp 12 09/13/19 14:00 BP 132/87 09/13/19 14:00 Pulse Ox 93 L 09/13/19 14:00 Intake & Output 09/12/19 09/13/19 09/13/19 18:59 06:59 18:59 Intake Total 1801 956.6 575 Output Total 975 5 2200 Balance 826 -1088.4 -1625 Weight 73.8 kg 78.6 kg Intake: IV 716.6 575 Fat Emulsion 20% 250 ml @ 41.6 20.833 mls/hr IV DAILY@ 1600 [facility] Rx#:[id number] Mvi, Adult No.4 with Vit 450 375 K 10 ml Trace (Conc-1Ml/ Dose) 1 ml In Amino Acid 4.25%-D10w+Lytes*E* 1,000 ml @ 75 mls/hr IV .BY DURATION [facility] Rx#: [id number] Piperacillin-Tazobactam 3 125 100 .375 gm In Sodium Chloride 0.9% 100 ml @ 25 mls/hr IVPB Q8HR [facility] Rx# :[id number] metroNIDAZOLE-NS PMX 500 100 100 mg In Saline 1 100ml.bag @ 100 mls/hr IVPB Q8HR [facility] Rx#:[id number] Intake, IV Titration 1261 Amount Mvi, Adult No.4 with Vit 1011 K 10 ml Trace (Conc-1Ml/ Dose) 1 ml In Amino Acid 4.25%-D10w+Lytes*E* 1,000 ml @ 75 mls/hr IV .BY DURATION [facility] Rx#: [id number] Potassium Phosphate 10 250 mmol In Sodium Chloride 0 .9% 250 ml @ 125 mls/hr IV ONCE ONE Rx#:[id number] Oral 540 240 Output: Drainage 50 15 Abdomen 50 15 Urine 925 2029 2200 Uretheral (Martinez) 400 Other: Voiding Method Indwelling Catheter Indwelling Catheter Indwelling Catheter # Voids 350 - Exam In general patient is alert and oriented 3 in no apparent distress HEENT head normocephalic and atraumatic Neck is supple no JVD no goiter no lymphadenopathy Chest exam reveals a few scattered crackles no wheezing Cardiac exam reveals regular heart sounds no gallops no murmurs Abdomen is soft with tenderness in the left lower quadrant and periumbilical area no organomegaly with normal bowel sounds Extremity exam reveals no edema no cyanosis or clubbing Neurological examination reveals no gross focal deficit - Labs CBC & Chem 7: 09/13/19 05:19 09/13/19 05:19 Labs: Abnormal Lab Results - Last 24 Hours (Table) 09/12/19 09/13/19 09/13/19 Range/Units 16:46 00:47 01:03 WBC (3.8-10.6) k/uL Plt Count (150-450) k/uL Neutrophils # (1.3-7.7) k/uL Monocytes # (0-1.0) k/uL D-Dimer (<0.60) mg/L FEU Sodium 134 L (137-145) mmol/L Potassium 3.3 L (3.5-5.1) mmol/L Creatinine 0.46 L (0.52-1.04) mg/dL Glucose 260 H (74-99) mg/dL POC Glucose (mg/dL) 133 H 233 H (75-99) mg/dL Plasma Lactic Acid Bereket (0.7-2.0) mmol/L AST 42 H (14-36) U/L Alkaline Phosphatase 232 H (38-126) U/L Total Protein 5.7 L (6.3-8.2) g/dL Albumin 2.7 L (3.5-5.0) g/dL 09/13/19 09/13/19 09/13/19 Range/Units 01:03 01:03 01:03 WBC 27.3 H (3.8-10.6) k/uL Plt Count 917 H D (150-450) k/uL Neutrophils # 21.8 H (1.3-7.7) k/uL Monocytes # 1.4 H (0-1.0) k/uL D-Dimer 8.69 H (<0.60) mg/L FEU Sodium (137-145) mmol/L Potassium (3.5-5.1) mmol/L Creatinine (0.52-1.04) mg/dL Glucose (74-99) mg/dL POC Glucose (mg/dL) (75-99) mg/dL Plasma Lactic Acid Bereket 2.4 H* (0.7-2.0) mmol/L AST (14-36) U/L Alkaline Phosphatase (38-126) U/L Total Protein (6.3-8.2) g/dL Albumin (3.5-5.0) g/dL 09/13/19 09/13/1909/12/20 Range/Units 01:20 05:19 05:19 WBC 20.1 H (3.8-10.6) k/uL Plt Count 455 H (150-450) k/uL Neutrophils # (1.3-7.7) k/uL Monocytes # (0-1.0) k/uL D-Dimer (<0.60) mg/L FEU Sodium 136 L (137-145) mmol/L Potassium 3.0 L (3.5-5.1) mmol/L Creatinine 0.47 L (0.52-1.04) mg/dL Glucose 185 H (74-99) mg/dL POC Glucose (mg/dL) 223 H (75-99) mg/dL Plasma Lactic Acid Bereket (0.7-2.0) mmol/L AST (14-36) U/L Alkaline Phosphatase (38-126) U/L Total Protein (6.3-8.2) g/dL Albumin (3.5-5.0) g/dL 09/13/19 09/13/19 Range/Units 06:37 11:48 WBC (3.8-10.6) k/uL Plt Count (150-450) k/uL Neutrophils # (1.3-7.7) k/uL Monocytes # (0-1.0) k/uL D-Dimer (<0.60) mg/L FEU Sodium (137-145) mmol/L Potassium (3.5-5.1) mmol/L Creatinine (0.52-1.04) mg/dL Glucose (74-99) mg/dL POC Glucose (mg/dL) 139 H 179 H (75-99) mg/dL Plasma Lactic Acid Bereket (0.7-2.0) mmol/L AST (14-36) U/L Alkaline Phosphatase (38-126) U/L Total Protein (6.3-8.2) g/dL Albumin (3.5-5.0) g/dL Assessment and Plan Plan: 1. Acute diverticulitis with abscess and microperforation and pneumoperitoneum, no significant improvement since admission despite antibiotic therapy, patient was evaluated today by Dr. Covarrubiasania underwent surgery yesterday as above. 2. Underlying history of hyperlipidemia 3. Previous history of breast cancer 4. History of valvular heart disease 5. Events from last night noted with flush pulmonary edema, requiring BiPAP, and transfer to ICU patient is doing much better at this time At this time patient is maintained on IV antibiotic Zosyn and Flagyl white blood count up from 11.8 to 14.8 and today down to 12.4 Continue current management awaiting further recommendation from infectious disease Protonix for GI prophylaxis, subcu Lovenox for DVT prophylaxis Will follow in a.m.
[2019-09-13] MEDS: FAT EMULSION 20% 250 ML IV SCH (16:21)
--- NOTE | 2019-09-13 16:30 | PN ---
PROGRESS NOTE DATE OF SERVICE: 09/13/2019 REASON FOR FOLLOWUP: Acute sigmoid diverticulitis with an abscess. INTERVAL HISTORY: The patient did go into respiratory distress last night. She also have a low- grade fever. The patient has been transferred to the ICU. The patient did have a chest x- ray with features of pulmonary edema did receive diarrhea with improvement in her respiratory symptoms. Currently breathing has improved. No chest pain or cough. Abdominal pain is currently improved. No nausea, vomiting. PHYSICAL EXAMINATION: Blood pressure 126/83 with a pulse of 102, temperature is 97.8, she is 95% on 4 L nasal cannula. General description is an elderly female, lying in bed in no distress. RESPIRATORY SYSTEM: Unlabored breathing, decreased breath sounds, no wheeze. HEART: S1, S2. Regular rate and rhythm. ABDOMEN: Soft, no tenderness. LABS: Hemoglobin is 11.5, white count 20. BUN of 12, creatinine 0.47. Blood culture on admission has been negative. DIAGNOSTIC IMPRESSION AND PLAN: Patient with acute sigmoid diverticulitis with perforation, abdominal abscess in this patient, status post laparotomy and diverting colostomy, drainage of the abscess. The patient is covered with Zosyn to continue, respiratory distress, more likely due to fluid overload. The patient has been diuresed and monitor clinical course closely. MMODL / IJN: [id number] / LIBRADO
[2019-09-13 17:28] LABS: Glucose,Whole Blood 163 mg/dL (75-99)
[2019-09-13] MEDS: [UNRECOGNIZED DRUG - REMARK] IV SCH ×4 (19:14)
[2019-09-13] MEDS: HYDROmorphone 0.5 MG/0.5 ML SYRINGE IVP PRN (19:55)
[2019-09-13 23:47] LABS: Glucose,Whole Blood 187 mg/dL (75-99)
[2019-09-14] MEDS: METOCLOPRAMIDE 5 MG/ML 2 ML VIAL IVP SCH ×4 (00:02→18:27)
[2019-09-14] MEDS: metroNIDAZOLE-NS PMX 500 MG in SALINE 1 100ML.BAG IVPB SCH ×3 (00:02→16:39)
[2019-09-14] MEDS: PIPERACILLIN-TAZOBACTAM 3.375 GM in SODIUM CHLORIDE 0.9% 100 ML IVPB SCH ×3 (00:03→16:38)
[2019-09-14] MEDS: HYDROmorphone 0.5 MG/0.5 ML SYRINGE IVP PRN ×3 (00:06→11:26)
[2019-09-14] MEDS: ONDANSETRON 4 MG/2 ML VIAL IVP PRN ×2 (04:04→22:05)
[2019-09-14 04:54] LABS: Basophils # (A) 0.1 k/uL (0-0.2); Basophils % (A) 0 %; Eosinophils # (A) 0.6 k/uL (0-0.7); Eosinophils % (A) 3 %; HCT 37.2 % (34.0-46.0); HGB 12.2 gm/dL (11.4-16.0); Lymphocytes # (A) 2.1 k/uL (1.0-4.8); Lymphocytes % (A) 10 %; MCH 28.1 pg (25.0-35.0); MCHC 32.8 g/dL (31.0-37.0); MCV 85.6 fL (80.0-100.0); Mean Platelet Volume 7.6; Monocytes # (A) 1.1 k/uL (0-1.0); Monocytes % (A) 5 %; Neutrophils # (A) 15.7 k/uL (1.3-7.7); Neutrophils % (A) 79 %; Platelet Count 645 k/uL (150-450); RBC 4.35 m/uL (3.80-5.40); WBC 19.8 k/uL (3.8-10.6)
[2019-09-14 05:14] LABS: ALT 19 U/L (4-34); AST 24 U/L (14-36); African American GFR (CKD) >90 (>60 ml/min/1.73 sqM); Albumin 2.4 g/dL (3.5-5.0); Alkaline Phosphatase 185 U/L (38-126); Anion Gap 7 mmol/L; Blood Urea Nitrogen 14 mg/dL (7-17); Calcium 8.6 mg/dL (8.4-10.2); Carbon Dioxide 29 mmol/L (22-30); Chloride 98 mmol/L (98-107); Glucose 196 mg/dL (74-99); Non-African American GFR(CKD) >90 (>60 ml/min/1.73 sqM); Phosphorus 2.8 mg/dL (2.5-4.5); Potassium 3.2 mmol/L (3.5-5.1); Sodium 134 mmol/L (137-145); Total Bilirubin 0.3 mg/dL (0.2-1.3); Total Protein 5.2 g/dL (6.3-8.2)
[2019-09-14] MEDS: POTASSIUM CHLORIDE ER 20 MEQ TAB.ER PO SCH ×2 (06:12→07:07)
[2019-09-14] MEDS: [UNRECOGNIZED DRUG - REMARK] IV SCH ×12 (06:35→20:53)
[2019-09-14 07:01] LABS: Glucose,Whole Blood 199 mg/dL (75-99)
[2019-09-14] MEDS: ENOXAPARIN 40 MG/0.4 ML SYRINGE SQ SCH (08:32)
[2019-09-14] MEDS: PANTOPRAZOLE 40 MG/10 ML VIAL IVP SCH (08:33)
[2019-09-14] MEDS: METOPROLOL TARTRATE 25 MG TAB PO SCH ×2 (08:33→19:56)
[2019-09-14] MEDS: FUROSEMIDE 10 MG/ML 4 ML VIAL IV SCH (08:33)
[2019-09-14] MEDS ORDERED: POTASSIUM CHLORIDE 10 MEQ in WATER FOR INJECTION 1 100ML.BAG IVPB SCH (10:00)
--- NOTE | 2019-09-14 12:48 | P.PN ---
Subjective Progress Note Date: 09/14/19 CHIEF COMPLAINT: abdominal pain HISTORY OF PRESENT ILLNESS: Patient is status post Jacinto procedure, takedown of splenic flexure, drainage of interloop abscess, and colostomy creation with Dr. Mcgrath. POD #3. Patient examined in the ICU with Dr. Mcgrath. She is sitting up in the chair. Pain tolerable. Tolerating clear liquids. Ostomy without stool or gas. WBC 19.8. PHYSICAL EXAM: VITAL SIGNS: Reviewed. GENERAL: Well-developed in no acute distress. HEENT: No sclera icterus. Extraocular movements grossly intact. Moist buccal mucosa. Head is atraumatic, normocephalic. ABDOMEN: Soft. Nondistended. Dressing CDI. Ostomy without stool or gas noted. KATARINA drain with serosanguineous drainage NEUROLOGIC: Alert and oriented. Cranial nerves II through XII grossly intact. ASSESSMENT: 1. Perforated diverticulitis with pelvic abscess and interloop abscess 2. Hiatal hernia PLAN: -Continue antibiotics -Continue clear liquids. Await output from colostomy. Continue TPN -Activity as tolerated -Incentive spirometer -Discontinue urinary catheter -Pulmonary management per Dr. Ga -Possible transfer to with telemetry tomorrow Nurse practitioner note has been reviewed by physician. Signing provider agrees with the documented findings, assessment, and plan of care. Objective - Vital Signs Vital signs: Vital Signs Temp 98.7 F 09/14/19 12:00 Pulse 122 H 09/14/19 12:00 Resp 15 09/14/19 12:00 BP 113/71 09/14/19 12:00 Pulse Ox 96 09/14/19 12:00 Intake & Output 09/13/19 09/14/19 09/14/19 18:59 06:59 18:59 Intake Total 1135 1320 780 Output Total 2775 750 1780 Balance -1640 570 -1000 Weight 77.3 kg 77.3 kg Intake: IV 1135 1320 660 0.9 KVO 220 120 Fat Emulsion 20% 250 ml @ 60 200 20.833 mls/hr IV DAILY@ 1600 [facility] Rx#:[id number] Mvi, Adult No.4 with Vit 675 900 340 K 10 ml Trace (Conc-1Ml/ Dose) 1 ml In Amino Acid 4.25%-D10w+Lytes*E* 1,000 ml @ 75 mls/hr IV .BY DURATION [facility] Rx#: [id number] Piperacillin-Tazobactam 3 200 100 .375 gm In Sodium Chloride 0.9% 100 ml @ 25 mls/hr IVPB Q8HR [facility] Rx# :[id number] metroNIDAZOLE-NS PMX 500 200 100 mg In Saline 1 100ml.bag @ 100 mls/hr IVPB Q8HR [facility] Rx#:[id number] Oral 120 Output: Drainage 20 Abdomen 20 Urine 2775 730 1780 Other: Voiding Method Indwelling Catheter Indwelling Catheter Indwelling Catheter - Labs CBC & Chem 7: 09/14/19 04:28 09/14/19 09:53 Labs: Abnormal Lab Results - Last 24 Hours (Table) 09/13/19 09/13/19 09/14/19 Range/Units 17:15 23:45 04:28 WBC (3.8-10.6) k/uL Plt Count (150-450) k/uL Neutrophils # (1.3-7.7) k/uL Monocytes # (0-1.0) k/uL Sodium 134 L (137-145) mmol/L Potassium 3.2 L (3.5-5.1) mmol/L Creatinine 0.45 L (0.52-1.04) mg/dL Glucose 196 H (74-99) mg/dL POC Glucose (mg/dL) 163 H 187 H (75-99) mg/dL Alkaline Phosphatase 185 H (38-126) U/L Total Protein 5.2 L (6.3-8.2) g/dL Albumin 2.4 L (3.5-5.0) g/dL 09/14/19 09/14/19 09/14/19 Range/Units 04:28 07:00 09:53 WBC 19.8 H (3.8-10.6) k/uL Plt Count 645 H (150-450) k/uL Neutrophils # 15.7 H (1.3-7.7) k/uL Monocytes # 1.1 H (0-1.0) k/uL Sodium (137-145) mmol/L Potassium 3.4 L (3.5-5.1) mmol/L Creatinine (0.52-1.04) mg/dL Glucose (74-99) mg/dL POC Glucose (mg/dL) 199 H (75-99) mg/dL Alkaline Phosphatase (38-126) U/L Total Protein (6.3-8.2) g/dL Albumin (3.5-5.0) g/dL
--- NOTE | 2019-09-14 12:49 | P.PN ---
Subjective Progress Note Date: 09/14/19 On today's evaluation of 09/14/2019, the patient is still recovering from abdominal surgery. She is doing well. No specific complaints patient remains in excellent 4 L per minute nasal cannula. Note that she went into pulmonary edema related to massive fluid overload. IV fluids has been cut down to KVO. The patient remains on TPN for nutritional support. The patient is producing good amount of urine output. She remains in a negative fluid balance per chart remains on IV Lasix. She is not utilizing any form of noninvasive positive pressure ventilation for now. No chest pain. No angina. Cardiac rhythm is sinus. Echo from June 2019 showed a normal preserved LV function with an ejection fraction of 55-60%. Surgical wound site over the abdominal wall is dry clean and intact. No hypotension. No fever. The patient is currently on IV Flagyl and Zosyn. The white cell count is at 19.8. Hemoglobin is at 12.2. Renal function is stable for now. The patient is on Lovenox for DVT pr ophylaxis. The patient is requiring Dilaudid 0.1-1 mg every 3-6 hours on a when necessary basis for pain control. The patient is sitting TPN for nutritional support. The patient is on IV Flagyl 500 mg every 8 hours. The patient is also on IV Zosyn 3.375 g every 8 hours. The patient is passing flatus. No abdominal distention. No nausea. No emesis. She is still on TPN for nutritional suppor t. Objective - Vital Signs Vital signs: Vital Signs Temp 98.7 F 09/14/19 12:00 Pulse 122 H 09/14/19 12:00 Resp 15 09/14/19 12:00 BP 113/71 09/14/19 12:00 Pulse Ox 96 09/14/19 12:00 Intake & Output 09/13/19 09/14/19 09/14/19 18:59 06:59 18:59 Intake Total 1135 1320 780 Output Total 2775 750 1780 Balance -1640 570 -1000 Weight 77.3 kg 77.3 kg Intake: IV 1135 1320 660 0.9 KVO 220 120 Fat Emulsion 20% 250 ml @ 60 200 20.833 mls/hr IV DAILY@ 1600 [facility] Rx#:[id number] Mvi, Adult No.4 with Vit 675 900 340 K 10 ml Trace (Conc-1Ml/ Dose) 1 ml In Amino Acid 4.25%-D10w+Lytes*E* 1,000 ml @ 75 mls/hr IV .BY DURATION [facility] Rx#: [id number] Piperacillin-Tazobactam 3 200 100 .375 gm In Sodium Chloride 0.9% 100 ml @ 25 mls/hr IVPB Q8HR [facility] Rx# :[id number] metroNIDAZOLE-NS PMX 500 200 100 mg In Saline 1 100ml.bag @ 100 mls/hr IVPB Q8HR [facility] Rx#:[id number] Oral 120 Output: Drainage 20 Abdomen 20 Urine 2775 730 1780 Other: Voiding Method Indwelling Catheter Indwelling Catheter Indwelling Catheter - Exam GENERAL EXAM: Alert, very pleasant, 69-year-old white female, on 4 L of oxygen, sitting up in a chair, in no acute distress comfortable in no apparent distress. HEAD: Normocephalic/atraumatic. EYES: Normal reaction of pupils, equal size. Conjunctiva pink, sclera white. NOSE: Clear with pink turbinates. THROAT: No erythema or exudates. NECK: No masses, no JVD, no thyroid enlargement, no adenopathy. CHEST: No chest wall deformity. Symmetrical expansion. LUNGS: Equal air entry with no crackles, wheeze, rhonchi or dullness. CVS: Regular rate and rhythm, normal S1 and S2, no gallops, no murmurs, no rubs ABDOMEN: Soft, nontender. No hepatosplenomegaly, normal bowel sounds, no guarding or rigidity. Abdominal incision is clean dry and intact, covered with surgical dressing, colostomy without output or gas, KATARINA drain with serosanguineous output EXTREMITIES: No clubbing, no edema, no cyanosis, 2+ pulses and upper and lower extremities. MUSCULOSKELETAL: Muscle strength and tone normal. SPINE: No scoliosis or deformity SKIN: No rashes CENTRAL NERVOUS SYSTEM: Alert and oriented -3. No focal deficits, tone is normal in all 4 extremities. PSYCHIATRIC: Alert and oriented -3. Appropriate affect. Intact judgment and insight. - Labs CBC & Chem 7: 09/14/19 04:28 09/14/19 09:53 Labs: Abnormal Lab Results - Last 24 Hours (Table) 09/13/19 09/13/19 09/14/19 Range/Units 17:15 23:45 04:28 WBC (3.8-10.6) k/uL Plt Count (150-450) k/uL Neutrophils # (1.3-7.7) k/uL Monocytes # (0-1.0) k/uL Sodium 134 L (137-145) mmol/L Potassium 3.2 L (3.5-5.1) mmol/L Creatinine 0.45 L (0.52-1.04) mg/dL Glucose 196 H (74-99) mg/dL POC Glucose (mg/dL) 163 H 187 H (75-99) mg/dL Alkaline Phosphatase 185 H (38-126) U/L Total Protein 5.2 L (6.3-8.2) g/dL Albumin 2.4 L (3.5-5.0) g/dL 09/14/19 09/14/19 09/14/19 Range/Units 04:28 07:00 09:53 WBC 19.8 H (3.8-10.6) k/uL Plt Count 645 H (150-450) k/uL Neutrophils # 15.7 H (1.3-7.7) k/uL Monocytes # 1.1 H (0-1.0) k/uL Sodium (137-145) mmol/L Potassium 3.4 L (3.5-5.1) mmol/L Creatinine (0.52-1.04) mg/dL Glucose (74-99) mg/dL POC Glucose (mg/dL) 199 H (75-99) mg/dL Alkaline Phosphatase (38-126) U/L Total Protein (6.3-8.2) g/dL Albumin (3.5-5.0) g/dL Assessment and Plan Plan: #1. Acute hypoxic respiratory failure related to loud overload, pulmonary edema, possibility of CHF exacerbation with previously documented preserved LV function, and the patient improved with diuresis. IV fluids at KVO. The patient required noninvasive positive pressure ventilation for a period of time and currently she is on 4lby nasal cannula. Breath sounds are quite diminished in lung bases bilaterally and the patient needs to be further diuresis for another 24 hours. Otherwise, the patient does well. #2. Acute perforated diverticulitis with pelvic abscess and interloop abscess, status post Gomez's procedure, takedown of splenic flexure, and drainage of interloop abscess and colostomy creation, postoperative day 2 #3. Hyperlipidemia #4. History of left breast cancer in 2002, status post lumpectomy and chemoradiation #5. History of nicotine dependence, currently in remission Plan Monitor the output from the KATARINA drain Continue Zosyn and Flagyl combination Continue TPN for nutritional support Clear liquid diet and gradually advance diet as tolerated Give Lasix 40 mg every 24 hours Repeat chest x-ray in a.m. Lovenox for DVT prophylaxis We'll continue to follow
--- NOTE | 2019-09-14 15:21 | P.PN ---
Subjective Progress Note Date: 09/14/19 Courtney Castellano is a 69-year-old female well known to my practice who presented to [facility] emergency room with a chief complaint of abdominal pain that started 3 days prior to admission and has been worsening. Patient describes pain mostly in the left lower quadrant she had episodes of nausea and vomiting she also had diarrhea. She denies any blood in the stools, she had one episode of low-grade fever otherwise no fever or chills no headache or dizziness no chest pain no shortness of breath no cough no burning with urination no frequency or urgency and no hematuria. Patient was evaluated in the emergency room, she had a computed tomography scan of the abdomen and pelvis as outpatient that revealed evidence of acute diverticulitis with pericolonic abscess and pneumoperitoneum in the pelvis and along the diaphragmatic border. She was admitted to the hospital and was started on IV antibiotics. Patient states that she had 1 previous episode of acute diverticulitis while she was in [place] she was treated with antibiotic and improved. She denies any previous surgery on her Colon. She has a known previous history of cholecystectomy, her past medical history also significant for history of breast cancer, history of hypertension, history of hyperlipidemia, and history of valvular heart disease. On 09/07/2019 patient was seen and examined on the medical floor she is alert and oriented 3 in no apparent distress she is still complaining of abdominal pain mostly in the left lower quadrant otherwise she denies any complaints there is no fever or chills no headache or dizziness no chest pain no shortness of breath no cough no nausea or vomiting no diarrhea and no urinary symptoms. On 09/08/2019 patient was seen and examined on the medical floor she is alert and oriented 3 in no apparent distress she is still complaining of mild discomfort in the lower abdominal area otherwise she denies any complaints there is no fever or chills no headache or dizziness no chest pain no shortness of breath no cough no nausea or vomiting there is some diarrhea but no mucus or blood in the stools there is no urinary symptoms. On 09/09/2019 patient was seen and examined on the medical floor she is still complaining of abdominal discomfort white blood count is still elevated at 12.2 patient had 1 episode of dizziness and presyncope while walking in her room, otherwise patient denies any complaints there is no fever or chills no headache no chest pain or shortness of breath no cough no nausea or vomiting, no blood in the stools no burning was urination no frequency or urgency and no hematuria. On 09/10/2019 Patient was seen and examined on the medical floor, she is alert and oriented in no distress, she is still complaining of abdominal pain, there is no fever or chills, no headache or dizziness no chest pain no shortness of breath no cough no nausea or vomiting no diarrhea and no urinary symptoms. On 09/11/2019 Patient was seen and examined on the medical floor, she is alert and oriented in no distress, she is still complaining of abdominal pain, white blood count is up to 12.9 despite antibiotic therapy. Potassium is low patient is receiving potassium replacement protocol. She was evaluated by Dr. Mcgrath and he is planning to proceed with surgery today. On 09/12/2019 patient was seen and examined on the medical floor she is alert and oriented 3 in no apparent distress she is complaining of abdominal pain with any movement or cough. Otherwise she denies any complaints, yesterday she underwent surgery with Dr. Mcgrath she had Jacinto procedure with takedown of splenic flexure and drainage of abscess, white blood count is elevated at 15.3 otherwise patient denies any symptoms there is no fever or chills no headache or dizziness no chest pain no shortness of breath no cough no nausea or vomiting and no urinary symptoms On 09/13/2019 patient was seen and examined in the ICU she is alert and oriented 3 in no apparent distress she is sitting up in a chair, last night patient had episode of severe shortness of breath, chest x-ray revealed evidence of flash pulmonary edema, she was transferred to ICU she required BiPAP and IV Lasix, IV fluid Were decreased, patient is doing much better at this time, there is no fever or chills no headache or dizziness no chest pain no shortness of breath no cough no nausea or vomiting no abdominal pain no diarrhea and no urinary symptoms, colostomy bag is empty without any liquid stool management, drainage bag reveals small amount of bloody drainage. On 09/14/2019 patient was seen and examined in the ICU, she is alert and oriented 3 in no apparent distress, there is no fever or chills no headache or dizziness, no chest pain no shortness of breath no cough no nausea or vomiting, no diarrhea no burning was urination no frequency or urgency no hematuria, she has moderate abdominal pain especially with any movement, pain is well controlled with current medications. Objective - Vital Signs Vital signs: Vital Signs Temp 98.7 F 09/14/19 12:00 Pulse 122 H 09/14/19 12:00 Resp 15 09/14/19 12:00 BP 113/71 09/14/19 12:00 Pulse Ox 96 09/14/19 12:00 Intake & Output 09/13/19 09/14/19 09/14/19 18:59 06:59 18:59 Intake Total 1135 1320 780 Output Total 2775 750 1780 Balance -1640 570 -1000 Weight 77.3 kg 77.3 kg Intake: IV 1135 1320 660 0.9 KVO 220 120 Fat Emulsion 20% 250 ml @ 60 200 20.833 mls/hr IV DAILY@ 1600 [facility] Rx#:[id number] Mvi, Adult No.4 with Vit 675 900 340 K 10 ml Trace (Conc-1Ml/ Dose) 1 ml In Amino Acid 4.25%-D10w+Lytes*E* 1,000 ml @ 75 mls/hr IV .BY DURATION [facility] Rx#: [id number] Piperacillin-Tazobactam 3 200 100 .375 gm In Sodium Chloride 0.9% 100 ml @ 25 mls/hr IVPB Q8HR [facility] Rx# :[id number] metroNIDAZOLE-NS PMX 500 200 100 mg In Saline 1 100ml.bag @ 100 mls/hr IVPB Q8HR [facility] Rx#:[id number] Oral 120 Output: Drainage 20 Abdomen 20 Urine 2775 730 1780 Other: Voiding Method Indwelling Catheter Indwelling Catheter Indwelling Catheter - Exam In general patient is alert and oriented 3 in no apparent distress HEENT head normocephalic and atraumatic Neck is supple no JVD no goiter no lymphadenopathy Chest exam reveals a few scattered crackles no wheezing Cardiac exam reveals regular heart sounds no gallops no murmurs Abdomen is soft with tenderness in the left lower quadrant and periumbilical area no organomegaly with normal bowel sounds Extremity exam reveals no edema no cyanosis or clubbing Neurological examination reveals no gross focal deficit - Labs CBC & Chem 7: 09/14/19 04:28 09/14/19 09:53 Labs: Abnormal Lab Results - Last 24 Hours (Table) 09/13/19 09/13/19 09/14/19 Range/Units 17:15 23:45 04:28 WBC (3.8-10.6) k/uL Plt Count (150-450) k/uL Neutrophils # (1.3-7.7) k/uL Monocytes # (0-1.0) k/uL Sodium 134 L (137-145) mmol/L Potassium 3.2 L (3.5-5.1) mmol/L Creatinine 0.45 L (0.52-1.04) mg/dL Glucose 196 H (74-99) mg/dL POC Glucose (mg/dL) 163 H 187 H (75-99) mg/dL Alkaline Phosphatase 185 H (38-126) U/L Total Protein 5.2 L (6.3-8.2) g/dL Albumin 2.4 L (3.5-5.0) g/dL 09/14/19 09/14/19 09/14/19 Range/Units 04:28 07:00 09:53 WBC 19.8 H (3.8-10.6) k/uL Plt Count 645 H (150-450) k/uL Neutrophils # 15.7 H (1.3-7.7) k/uL Monocytes # 1.1 H (0-1.0) k/uL Sodium (137-145) mmol/L Potassium 3.4 L (3.5-5.1) mmol/L Creatinine (0.52-1.04) mg/dL Glucose (74-99) mg/dL POC Glucose (mg/dL) 199 H (75-99) mg/dL Alkaline Phosphatase (38-126) U/L Total Protein (6.3-8.2) g/dL Albumin (3.5-5.0) g/dL Assessment and Plan Plan: 1. Acute diverticulitis with abscess and microperforation and pneumoperitoneum, no significant improvement since admission despite antibiotic therapy, patient was evaluated today by Dr. Covarrubiasania underwent surgery yesterday as above. 2. Underlying history of hyperlipidemia 3. Previous history of breast cancer 4. History of valvular heart disease 5. Events from yesterday with flush pulmonary edema, requiring BiPAP, and transfer to ICU patient is doing much better at this time, possible transfer back to medical floor tomorrow At this time patient is maintained on IV antibiotic Zosyn and Flagyl white blood count up from 11.8 to 14.8 and today down to 12.4 Continue current management awaiting further recommendation from infectious disease Protonix for GI prophylaxis, subcu Lovenox for DVT prophylaxis Will follow in a.m.
--- NOTE | 2019-09-14 16:18 | PN ---
PROGRESS NOTE DATE OF SERVICE: 09/14/2019 REASON FOR FOLLOWUP: Perforated diverticulitis with abscess. INTERVAL HISTORY: The patient is currently afebrile, she is breathing comfortably. Has been complaining of some abdominal pain after she did eat her lunch. No chest pain, shortness of breath or cough. No output in the colostomy bag so far. PHYSICAL EXAMINATION: Blood pressure 112/83 with a pulse of 106, temperature 98.7. She is 95% on room air. General description is an elderly female, lying in bed in no distress. RESPIRATORY SYSTEM: Unlabored breathing, clear to auscultation anteriorly. HEART: S1, S2. Regular rate and rhythm. ABDOMEN: Soft, mildly distended. No guarding or rigidity. LABS: Hemoglobin is 12.8, white count of 19.8. BUN of 14, creatinine 0.45. Blood culture has been negative. DIAGNOSTIC IMPRESSION AND PLAN: Patient with acute sigmoid diverticulitis complicated with perforation and abscess, status post laparotomy and diverting colostomy drainage of the abscess. Admission because of increasing shortness of breath, possible fluid related. The patient is currently covered with Zosyn to continue and will monitor her clinical course and white count closely. Continue supportive care. MMODL / IJN: [id number] / MTDD
[2019-09-14] MEDS: FAT EMULSION 20% 250 ML IV SCH (16:38)
[2019-09-14 18:44] LABS: Glucose,Whole Blood 202 mg/dL (75-99)
[2019-09-14] MEDS ORDERED: DILTIAZEM DRIP BOLUS FROM BAG 1 MG SOLN IV ONE (19:03)
[2019-09-14] MEDS: DILTIAZEM 125 MG in SODIUM CHLORIDE 0.9% 100 ML IV SCH (19:50)
[2019-09-14] MEDS: POTASSIUM CHLORIDE 20 MEQ in WATER FOR INJECTION 1 100ML.BAG IVPB SCH ×2 (19:56→22:03)
[2019-09-14 21:43] LABS: Glucose,Whole Blood 168 mg/dL (75-99)
[2019-09-14] MEDS: MORPHINE SULFATE 4 MG/ML SYRINGE IV PRN (22:56)
[2019-09-15] MEDS: METOCLOPRAMIDE 5 MG/ML 2 ML VIAL IVP SCH ×5 (00:41→23:46)
[2019-09-15] MEDS: PIPERACILLIN-TAZOBACTAM 3.375 GM in SODIUM CHLORIDE 0.9% 100 ML IVPB SCH ×4 (00:41→23:46)
[2019-09-15 04:35] LABS: Basophils # (A) 0.1 k/uL (0-0.2); Basophils % (A) 0 %; Eosinophils # (A) 0.4 k/uL (0-0.7); Eosinophils % (A) 2 %; HCT 35.1 % (34.0-46.0); HGB 11.8 gm/dL (11.4-16.0); Lymphocytes # (A) 1.6 k/uL (1.0-4.8); Lymphocytes % (A) 9 %; MCH 28.9 pg (25.0-35.0); MCHC 33.5 g/dL (31.0-37.0); MCV 86.4 fL (80.0-100.0); Mean Platelet Volume 7.7; Monocytes # (A) 0.9 k/uL (0-1.0); Monocytes % (A) 5 %; Neutrophils # (A) 14.7 k/uL (1.3-7.7); Neutrophils % (A) 82 %; Platelet Count 552 k/uL (150-450); RBC 4.06 m/uL (3.80-5.40)
[2019-09-15 05:06] LABS: ALT 15 U/L (4-34); AST 26 U/L (14-36); African American GFR (CKD) >90 (>60 ml/min/1.73 sqM); Albumin 2.3 g/dL (3.5-5.0); Alkaline Phosphatase 159 U/L (38-126); Anion Gap 5 mmol/L; Blood Urea Nitrogen 14 mg/dL (7-17); Calcium 8.6 mg/dL (8.4-10.2); Carbon Dioxide 27 mmol/L (22-30); Chloride 100 mmol/L (98-107); Glucose 200 mg/dL (74-99); Magnesium 1.9 mg/dL (1.6-2.3); Non-African American GFR(CKD) >90 (>60 ml/min/1.73 sqM); Phosphorus 2.9 mg/dL (2.5-4.5); Sodium 132 mmol/L (137-145); Total Bilirubin 0.3 mg/dL (0.2-1.3); Total Protein 4.9 g/dL (6.3-8.2)
[2019-09-15] MEDS: ONDANSETRON 4 MG/2 ML VIAL IVP PRN (06:01)
[2019-09-15] MEDS: MORPHINE SULFATE 4 MG/ML SYRINGE IV PRN (06:01)
[2019-09-15 06:09] LABS: Glucose,Whole Blood 178 mg/dL (75-99)
[2019-09-15] MEDS: INSULIN ASPART (NovoLOG) 100 UNIT/ML VIAL SQ SCH ×4 (06:25→20:01)
[2019-09-15] MEDS: DILTIAZEM 125 MG in SODIUM CHLORIDE 0.9% 100 ML IV SCH (06:37)
--- NOTE | 2019-09-15 07:09 | XR ---
EXAMINATION TYPE: XR chest 1V portable DATE OF EXAM: 09/15/2019 COMPARISON: Prior chest x-ray dated 09/13/2019 HISTORY: Pulmonary edema TECHNIQUE: Single frontal view of the chest is obtained. FINDINGS: There is prominence of interstitium, perihilar increased attenuation within the lungs. No evident pneumothorax. Medial aspect of the left hemidiaphragm is obscured. Heart size not significant ly changed. There are overlying cardiac leads. IMPRESSION: Findings consistent with pulmonary edema which has progressed in the interval.
[2019-09-15] MEDS: METOPROLOL TARTRATE 25 MG TAB PO SCH (08:02)
[2019-09-15] MEDS: PANTOPRAZOLE 40 MG/10 ML VIAL IVP SCH (08:02)
[2019-09-15] MEDS: ENOXAPARIN 40 MG/0.4 ML SYRINGE SQ SCH (08:02)
[2019-09-15] MEDS: FUROSEMIDE 10 MG/ML 4 ML VIAL IV SCH ×3 (08:02→20:01)
[2019-09-15] MEDS: METOPROLOL TARTRATE 50 MG TAB PO SCH ×2 (10:39→20:01)
--- NOTE | 2019-09-15 11:28 | P.PN ---
Subjective Progress Note Date: 09/15/19 On today's evaluation of 09/15/2019, the patient is still recovering from abdominal surgery. The patient is still receiving TPN for nutritional support. Noted the patient postoperatively developed fluid overload and pulmonary edema. She was treated and she was improved and the fluid was cut down. Note that she has a previous echo cardiac exam showing a preserved LV function with an ejection fraction of 55-60%. She also went into atrial fibrillation pH converted back to sinus. Yesterday again she went into atrial fibrillation and she was started back on Cardizem drip at 7.5 mg an hour which is currently running still. She is also on metoprolol 25 mg by mouth twice a day and the dose has been adjusted today to 50 mg by mouth twice a day. Cardizem drip is being gradually weaned off. She is back into normal sinus rhythm although she is having occasional PACs. Her chest x-ray still showing pulmonary edema which is worse compared to yesterday. For that reason, I increased the Lasix dose of 40 mg every 12 hours. She is currently on KVO IV fluids. She is receiving IV Zosyn. She is on TPN for nutritional support patient is tolerating some clear liquid diet and we're going to see if it's possible to advance her diet. surgical wound site is dry clean and intact. The neck fluid balance for yesterday was -1 L. The drainage from the KATARINA drain is around 20 mL over the past 24 hours. Her colostomy site is viable and there is some functionality of the patient is starting to produce some stool material within the colostomy bag. In terms of antibiotic coverage, the patient is discharged to IV Zosyn and Flagyl has been discontinued. Objective - Vital Signs Vital signs: Vital Signs Temp 98.7 F 09/15/19 08:00 Pulse 82 09/15/19 11:00 Resp 14 09/15/19 11:12 BP 125/77 09/15/19 11:00 Pulse Ox 97 09/15/19 11:00 Intake & Output 09/14/19 09/15/19 09/15/19 18:59 06:59 18:59 Intake Total 2467.5 2734.375 386.625 Output Total 2110 1710 2250 Balance 357.5 1024.375 -1863.375 Weight 77.3 kg 76 kg Intake: IV 1340 1395 365 0.9 KVO 180 180 20 Fat Emulsion 20% 250 ml @ 20 240 20 20.833 mls/hr IV DAILY@ 1600 [facility] Rx#:[id number] Mvi, Adult No.4 with Vit 790 K 10 ml Trace (Conc-1Ml/ Dose) 1 ml In Amino Acid 4.25%-D10w+Lytes*E* 1,000 ml @ 75 mls/hr IV .BY DURATION [facility] Rx#: [id number] Mvi, Adult No.4 with Vit 825 225 K 10 ml Trace (Conc-1Ml/ Dose) 1 ml Potassium Chloride 15 meq In Amino Acid 4.25%-D10w+Lytes*E* 1,000 ml @ 75 mls/hr IV . BY DURATION [facility] Rx#: [id number] Piperacillin-Tazobactam 3 150 150 100 .375 gm In Sodium Chloride 0.9% 100 ml @ 25 mls/hr IVPB Q8HR [facility] Rx# :[id number] metroNIDAZOLE-NS PMX 500 200 mg In Saline 1 100ml.bag @ 100 mls/hr IVPB Q8HR [facility] Rx#:[id number] Intake, IV Titration 1007.5 1099.375 21.625 Amount Diltiazem 125 mg In 80.875 21.625 Sodium Chloride 0.9% 100 ml @ 7.5 MG/HR 7.5 mls/hr IV .[id number] [facility] Rx#: [id number] Mvi, Adult No.4 with Vit 1018.5 K 10 ml Trace (Conc-1Ml/ Dose) 1 ml Potassium Chloride 15 meq In Amino Acid 4.25%-D10w+Lytes*E* 1,000 ml @ 75 mls/hr IV . BY DURATION [facility] Rx#: [id number] Potassium Chloride 15 meq 1007.5 In Amino Acid 4.25%-D10w +Lytes*E* 1,000 ml @ 75 mls/hr IV .BY DURATION [facility] Rx#:[id number] Oral 120 240 Output: Urine 2110 1710 2250 Other: Voiding Method Indwelling Catheter Indwelling Catheter Indwelling Catheter - Exam GENERAL EXAM: Alert, very pleasant, 69-year-old white female, on 4 L of oxygen, sitting up in a chair, in no acute distress comfortable in no apparent distress. HEAD: Normocephalic/atraumatic. EYES: Normal reaction of pupils, equal size. Conjunctiva pink, sclera white. NOSE: Clear with pink turbinates. THROAT: No erythema or exudates. NECK: No masses, no JVD, no thyroid enlargement, no adenopathy. CHEST: No chest wall deformity. Symmetrical expansion. LUNGS: Equal air entry with no crackles, wheeze, rhonchi or dullness. CVS: Regular rate and rhythm, normal S1 and S2, no gallops, no murmurs, no rubs ABDOMEN: Soft, nontender. No hepatosplenomegaly, normal bowel sounds, no guarding or rigidity. Abdominal incision is clean dry and intact, covered with surgical dressing, colostomy without output or gas, KATARINA drain with serosanguineous output. The colostomy is viable and there is some functionality with some limited amount of stool formation in the colostomy bag. There is hypoactive yet present bowel sounds. EXTREMITIES: No clubbing, no edema, no cyanosis, 2+ pulses and upper and lower extremities. MUSCULOSKELETAL: Muscle strength and tone normal. SPINE: No scoliosis or deformity SKIN: No rashes CENTRAL NERVOUS SYSTEM: Alert and oriented -3. No focal deficits, tone is normal in all 4 extremities. PSYCHIATRIC: Alert and oriented -3. Appropriate affect. Intact judgment and insight. - Labs CBC & Chem 7: 09/15/19 04:07 09/15/19 04:07 Labs: Abnormal Lab Results - Last 24 Hours (Table) 09/14/19 09/14/19 09/15/19 Range/Units 18:43 21:41 04:07 WBC (3.8-10.6) k/uL Plt Count (150-450) k/uL Neutrophils # (1.3-7.7) k/uL Sodium 132 L (137-145) mmol/L Creatinine 0.44 L (0.52-1.04) mg/dL Glucose 200 H (74-99) mg/dL POC Glucose (mg/dL) 202 H 168 H (75-99) mg/dL Alkaline Phosphatase 159 H (38-126) U/L Total Protein 4.9 L (6.3-8.2) g/dL Albumin 2.3 L (3.5-5.0) g/dL 09/15/19 09/15/19 Range/Units 04:07 06:08 WBC 18.0 H (3.8-10.6) k/uL Plt Count 552 H (150-450) k/uL Neutrophils # 14.7 H (1.3-7.7) k/uL Sodium (137-145) mmol/L Creatinine (0.52-1.04) mg/dL Glucose (74-99) mg/dL POC Glucose (mg/dL) 178 H (75-99) mg/dL Alkaline Phosphatase (38-126) U/L Total Protein (6.3-8.2) g/dL Albumin (3.5-5.0) g/dL Assessment and Plan Plan: #1. Acute hypoxic respiratory failure related to loud overload, pulmonary edema, possibility of CHF exacerbation with previously documented preserved LV function, and the patient improved with diuresis. IV fluids at KVO. The patient required noninvasive positive pressure ventilation for a period of time and currently she is on 4lby nasal cannula. Breath sounds are quite diminished in lung bases bilaterally and the patient needs to be further diuresis for another 24 hours. Meanwhile, the patient is having episodes of atrial fibrillation. This is of a new onset. The patient is currently on a Cardizem drip in addition to oral metoprolol and the current rhythm is back to sinus. Hemodynamically stable. Chest x-ray showing worsening in the pulmonary edema without any worsening of her shortness of breath. She has bilateral crackles pH would benefit from ongoing diuresis. IV fluids is to KVO and the patient is receiving TPN for nutritional support. #2. Acute perforated diverticulitis with pelvic abscess and interloop abscess, status post Gomez's procedure, takedown of splenic flexure, and drainage of interloop abscess and colostomy creation, postoperative day 3, and on today's evaluation the colostomy site is viable and is showing some functionality. #3. Hyperlipidemia #4. History of left breast cancer in 2003, status post lumpectomy and chemoradiation #5. History of nicotine dependence, currently in remission #6 leukocytosis, improving Plan Monitor the output from the KATARINA drain, minimal at this point Continue Zosyn as an empiric antibiotic coverage Continue TPN for nutritional support, and this can be discontinued within the next 24 hours as the patient is showing some functionality in her colostomy bag Clear liquid diet and gradually advance diet as tolerated Give Lasix 40 mg every every 12 hours and doses been adjusted Wean off Cardizem drip Increase the metoprolol to 50 mg by mouth twice a day Repeat echocardiogram Check thyroid function tests Increase mobility Cardiology to follow-up on atrial fibrillation Repeat chest x-ray in a.m. Lovenox for DVT prophylaxis We'll continue to follow
[2019-09-15 11:34] LABS: Glucose,Whole Blood 216 mg/dL (75-99)
--- NOTE | 2019-09-15 12:00 | ECHOF ---
Referral Reason:Afib RVR new onset, pulm edema MEASUREMENTS -------- HEIGHT: 170.2 cm WEIGHT: 75.7 kg BP: 150/87 RVIDd: 3.0 cm (< 3.3) IVSd: 1.5 cm (0.6 - 1.1) LVIDd: 2.7 cm (3.9 - 5.3) LVPWd: 1.7 cm (0.6 - 1.1) IVSs: 1.8 cm LVIDs: 2.0 cm LVPWs: 1.7 cm LAESV Index (A-L): 16.53 ml/m Ao Diam: 2.3 cm (2.0 - 3.7) AV Cusp: 1.8 cm (1.5 - 2.6) MV EXCURSION: 17.896 mm (> 18.000) MV EF SLOPE: 178 mm/s (70 - 150) EPSS: 1.5 cm RAP: 5.00 mmHg RVSP: 40.32 mmHg FINDINGS -------- Sinus rhythm with extra systolic beats. This was a technically adequate study. The left ventricular size is normal. There is moderate concentric left ventricular hypertrophy. O verall left ventricular systolic function is low-normal with, an EF between 50 - 55 %. Mitral Doppl er inflow pattern suggests diastolic filling abnormality {E/E'}. The right ventricle is normal in size. Normal LA size by volume 22+/-6 ml/m2. The right atrial size is normal. Interatrial and interventricular septum intact. The aortic valve is trileaflet and appears structurally normal. There is mild aortic valve sclerosi s. There is no evidence of aortic regurgitation. There is no evidence of aortic stenosis. Mild mitral regurgitation is present. Mild tricuspid regurgitation present. There is mild pulmonary hypertension. The right ventricular systolic pressure, as measured by Doppler, is 40.32mmHg. There is no pulmonic regurgitation present. The aortic root size is normal. The inferior vena cava is mildly dilated. There is no pericardial effusion. CONCLUSIONS -------- 1. Sinus rhythm with extra systolic beats. 2. This was a technically adequate study. 3. The left ventricular size is normal. 4. There is moderate concentric left ventricular hypertrophy. 5. Mitral Doppler inflow pattern suggest diastolic filling abnormality {E/E'}. 6. The right ventricle is normal in size. 7. Normal LA size by volume 22+/-6 ml/m2. 8. The right atrial size is normal. 9. Interatrial and interventricular septum intact. 10. The aortic valve is trileaflet and appears structurally normal. 11. There is mild aortic valve sclerosis. 12. There is no evidence of aortic regurgitation. 13. There is no evidence of aortic stenosis. 14. Mild mitral regurgitation is present. 15. Mild tricuspid regurgitation present. 16. There is mild pulmonary hypertension. 17. The right ventricular systolic pressure, as measured by Doppler, is 40.32mmHg. 18. There is no pulmonic regurgitation present. 19. The aortic root size is normal. 20. The inferior vena cava is mildly dilated. 21. There is no pericardial effusion. CANDY STARCH MOLD PRINTER: Mary Jane Ram RDCS
--- NOTE | 2019-09-15 12:28 | CONS ---
CONSULTATION CHIEF COMPLAINT: Atrial fibrillation HISTORY OF PRESENT ILLNESS: This is a 69-year-old lady with history of dyslipidemia who was admitted to hospital with abdominal pain. She had left lower quadrant pain for the last 7-10 days prior to coming in. Was found to have an abscess secondary to acute diverticulitis. Subsequently she underwent surgery resection of the colon and had colostomy. Last night, she developed atrial fibrillation with rapid ventricular rate for which Cardiology has been consulted. Patient was started on intravenous Cardizem and this morning the Cardizem dose had been decreased. There is no prior history of coronary artery disease, congestive heart failure, atrial fibrillation, she has normal LV systolic function. At the time of my evaluation this morning, heart rate is better controlled in the 90s. Blood pressure is 140/91. The patient is on Lopressor 25 b.i.d. I am increasing it to 50 b.i.d. I will stop the intravenous Cardizem. If okay with surgery, we will start her on intravenous heparin and transition her to Eliquis. Once we were able to put her on heparin, I will give her amiodarone to see if she will convert to sinus rhythm. If she converts to sinus rhythm, stays in sinus rhythm, we will give her just a 3-4 weeks worth of anticoagulation. She developed pulmonary edema on this admission after surgery, probably due to fluid overload. She has normal LV systolic function on the echo. She just had a repeat echo. We will see what the LV function looks like. PAST MEDICAL HISTORY: Negative for hypertension, diabetes. Significant for dyslipidemia. MEDICATIONS: Medications at home include Zocor 20 daily, TUMS, [place]. ALLERGIES: THE PATIENT IS ALLERGIC TO BEE VENOM. FAMILY HISTORY: Negative for premature coronary artery disease. SOCIAL HISTORY: Negative for current smoking, ETOH or drug abuse. REVIEW OF SYSTEMS: HEENT is unremarkable. CARDIAC as described above. RESPIRATORY as described above. GI negative. GENITOURINARY negative. ALLERGY none. IMMUNOLOGICAL: Negative. SKIN negative. MUSCULOSKELETAL negative for arthritis. PSYCHOSOCIAL negative. ENDOCRINE negative. DERM negative. CONSTITUTIONAL negative. ONCOLOGICAL negative. TELEGRAPH SERVICE RATER negative. Rest of the system review is not relevant. EXAM: Comfortable at rest. Vital signs are stable. There is no jugular venous distention. Carotid upstroke is normal. There is no bruit. Chest exam reveals good air entry bilaterally. Heart exam reveals first and second heart sounds, irregular rhythm. Abdomen is status post surgery. Exam of extremities did not reveal any edema. LAB: Show a hemoglobin of 11.8, white cell count is elevated, platelet count is 550. Potassium is 4, creatinine is 0.4. ASSESSMENT: 1. Persistent atrial fibrillation. 2. Acute diverticulitis with perforated viscus, status post surgery. 3. Dyslipidemia. 4. Episodes of pulmonary edema, probably secondary to fluid overload or due to diastolic dysfunction. PLAN: We will continue the heart rate with metoprolol. Start on IV heparin and we might consider starting her on amiodarone. MMODL / IJN: [id number] /
--- NOTE | 2019-09-15 14:06 | P.PN ---
Subjective Progress Note Date: 09/15/19 CHIEF COMPLAINT: abdominal pain HISTORY OF PRESENT ILLNESS: Patient is status post Jacinto procedure, takedown of splenic flexure, drainage of interloop abscess, and colostomy creation with Dr. Mcgrath. POD #4. Patient examined in the ICU with Dr. Mcgrath. Pain tolerable. Tolerating clear liquids. Ostomy with gas and a small amount of stool noted. WBC 18.0. PHYSICAL EXAM: VITAL SIGNS: Reviewed. GENERAL: Well-developed in no acute distress. HEENT: No sclera icterus. Extraocular movements grossly intact. Moist buccal mucosa. Head is atraumatic, normocephalic. ABDOMEN: Soft. Nondistended. Dressing CDI. Ostomy with gas and swollen of stool noted. KATARINA drain with serosanguineous drainage NEUROLOGIC: Alert and oriented. Cranial nerves II through XII grossly intact. ASSESSMENT: 1. Perforated diverticulitis with pelvic abscess and interloop abscess 2. Hiatal hernia PLAN: -Continue antibiotics -Advance diet to full liquids. Discontinue TPN -Activity as tolerated -Incentive spirometer -Pulmonary management per Dr. Ga -Continue observation in ICU for another 24 hours. Possible transfer to with telemetry tomorrow Nurse practitioner note has been reviewed by physician. Signing provider agrees with the documented findings, assessment, and plan of care. Objective - Vital Signs Vital signs: Vital Signs Temp 98 F 09/15/19 12:00 Pulse 98 09/15/19 12:00 Resp 19 09/15/19 13:00 BP 140/85 09/15/19 13:00 Pulse Ox 97 09/15/19 13:00 Intake & Output 09/14/19 09/15/19 09/15/19 18:59 06:59 18:59 Intake Total 2467.5 2734.375 676.625 Output Total 2110 1710 2425 Balance 357.5 1024.375 -1748.375 Weight 77.3 kg 76 kg Intake: IV 1340 1395 405 0.9 KVO 180 180 60 Fat Emulsion 20% 250 ml @ 20 240 20 20.833 mls/hr IV DAILY@ 1600 [facility] Rx#:[id number] Mvi, Adult No.4 with Vit 790 K 10 ml Trace (Conc-1Ml/ Dose) 1 ml In Amino Acid 4.25%-D10w+Lytes*E* 1,000 ml @ 75 mls/hr IV .BY DURATION [facility] Rx#: [id number] Mvi, Adult No.4 with Vit 825 225 K 10 ml Trace (Conc-1Ml/ Dose) 1 ml Potassium Chloride 15 meq In Amino Acid 4.25%-D10w+Lytes*E* 1,000 ml @ 75 mls/hr IV . BY DURATION [facility] Rx#: [id number] Piperacillin-Tazobactam 3 150 150 100 .375 gm In Sodium Chloride 0.9% 100 ml @ 25 mls/hr IVPB Q8HR [facility] Rx# :[id number] metroNIDAZOLE-NS PMX 500 200 mg In Saline 1 100ml.bag @ 100 mls/hr IVPB Q8HR [facility] Rx#:[id number] Intake, IV Titration 1007.5 1099.375 21.625 Amount Diltiazem 125 mg In 80.875 21.625 Sodium Chloride 0.9% 100 ml @ 7.5 MG/HR 7.5 mls/hr IV .[id number] [facility] Rx#: [id number] Mvi, Adult No.4 with Vit 1018.5 K 10 ml Trace (Conc-1Ml/ Dose) 1 ml Potassium Chloride 15 meq In Amino Acid 4.25%-D10w+Lytes*E* 1,000 ml @ 75 mls/hr IV . BY DURATION [facility] Rx#: [id number] Potassium Chloride 15 meq 1007.5 In Amino Acid 4.25%-D10w +Lytes*E* 1,000 ml @ 75 mls/hr IV .BY DURATION [facility] Rx#:[id number] Oral 120 240 250 Output: Urine 2110 1710 2425 Other: Voiding Method Indwelling Catheter Indwelling Catheter Indwelling Catheter - Labs CBC & Chem 7: 09/15/19 04:07 09/15/19 04:07 Labs: Abnormal Lab Results - Last 24 Hours (Table) 09/14/19 09/14/19 09/15/19 Range/Units 18:43 21:41 04:07 WBC (3.8-10.6) k/uL Plt Count (150-450) k/uL Neutrophils # (1.3-7.7) k/uL Sodium 132 L (137-145) mmol/L Creatinine 0.44 L (0.52-1.04) mg/dL Glucose 200 H (74-99) mg/dL POC Glucose (mg/dL) 202 H 168 H (75-99) mg/dL Alkaline Phosphatase 159 H (38-126) U/L Total Protein 4.9 L (6.3-8.2) g/dL Albumin 2.3 L (3.5-5.0) g/dL 09/15/19 09/15/19 09/15/19 Range/Units 04:07 06:08 11:33 WBC 18.0 H (3.8-10.6) k/uL Plt Count 552 H (150-450) k/uL Neutrophils # 14.7 H (1.3-7.7) k/uL Sodium (137-145) mmol/L Creatinine (0.52-1.04) mg/dL Glucose (74-99) mg/dL POC Glucose (mg/dL) 178 H 216 H (75-99) mg/dL Alkaline Phosphatase (38-126) U/L Total Protein (6.3-8.2) g/dL Albumin (3.5-5.0) g/dL
[2019-09-15] MEDS: [UNRECOGNIZED DRUG - REMARK] IV SCH ×8 (15:27→23:29)
--- NOTE | 2019-09-15 16:32 | P.PN ---
Subjective Progress Note Date: 09/15/19 Courtney Castellano is a 69-year-old female well known to my practice who presented to [facility] emergency room with a chief complaint of abdominal pain that started 3 days prior to admission and has been worsening. Patient describes pain mostly in the left lower quadrant she had episodes of nausea and vomiting she also had diarrhea. She denies any blood in the stools, she had one episode of low-grade fever otherwise no fever or chills no headache or dizziness no chest pain no shortness of breath no cough no burning with urination no frequency or urgency and no hematuria. Patient was evaluated in the emergency room, she had a computed tomography scan of the abdomen and pelvis as outpatient that revealed evidence of acute diverticulitis with pericolonic abscess and pneumoperitoneum in the pelvis and along the diaphragmatic border. She was admitted to the hospital and was started on IV antibiotics. Patient states that she had 1 previous episode of acute diverticulitis while she was in [place] she was treated with antibiotic and improved. She denies any previous surgery on her Colon. She has a known previous history of cholecystectomy, her past medical history also significant for history of breast cancer, history of hypertension, history of hyperlipidemia, and history of valvular heart disease. On 09/07/2019 patient was seen and examined on the medical floor she is alert and oriented 3 in no apparent distress she is still complaining of abdominal pain mostly in the left lower quadrant otherwise she denies any complaints there is no fever or chills no headache or dizziness no chest pain no shortness of breath no cough no nausea or vomiting no diarrhea and no urinary symptoms. On 09/08/2019 patient was seen and examined on the medical floor she is alert and oriented 3 in no apparent distress she is still complaining of mild discomfort in the lower abdominal area otherwise she denies any complaints there is no fever or chills no headache or dizziness no chest pain no shortness of breath no cough no nausea or vomiting there is some diarrhea but no mucus or blood in the stools there is no urinary symptoms. On 09/09/2019 patient was seen and examined on the medical floor she is still complaining of abdominal discomfort white blood count is still elevated at 12.2 patient had 1 episode of dizziness and presyncope while walking in her room, otherwise patient denies any complaints there is no fever or chills no headache no chest pain or shortness of breath no cough no nausea or vomiting, no blood in the stools no burning was urination no frequency or urgency and no hematuria. On 09/10/2019 Patient was seen and examined on the medical floor, she is alert and oriented in no distress, she is still complaining of abdominal pain, there is no fever or chills, no headache or dizziness no chest pain no shortness of breath no cough no nausea or vomiting no diarrhea and no urinary symptoms. On 09/11/2019 Patient was seen and examined on the medical floor, she is alert and oriented in no distress, she is still complaining of abdominal pain, white blood count is up to 12.9 despite antibiotic therapy. Potassium is low patient is receiving potassium replacement protocol. She was evaluated by Dr. Mcgrath and he is planning to proceed with surgery today. On 09/12/2019 patient was seen and examined on the medical floor she is alert and oriented 3 in no apparent distress she is complaining of abdominal pain with any movement or cough. Otherwise she denies any complaints, yesterday she underwent surgery with Dr. Mcgrath she had Jacinto procedure with takedown of splenic flexure and drainage of abscess, white blood count is elevated at 15.3 otherwise patient denies any symptoms there is no fever or chills no headache or dizziness no chest pain no shortness of breath no cough no nausea or vomiting and no urinary symptoms On 09/13/2019 patient was seen and examined in the ICU she is alert and oriented 3 in no apparent distress she is sitting up in a chair, last night patient had episode of severe shortness of breath, chest x-ray revealed evidence of flash pulmonary edema, she was transferred to ICU she required BiPAP and IV Lasix, IV fluid Were decreased, patient is doing much better at this time, there is no fever or chills no headache or dizziness no chest pain no shortness of breath no cough no nausea or vomiting no abdominal pain no diarrhea and no urinary symptoms, colostomy bag is empty without any liquid stool management, drainage bag reveals small amount of bloody drainage. On 09/14/2019 patient was seen and examined in the ICU, she is alert and oriented 3 in no apparent distress, there is no fever or chills no headache or dizziness, no chest pain no shortness of breath no cough no nausea or vomiting, no diarrhea no burning was urination no frequency or urgency no hematuria, she has moderate abdominal pain especially with any movement, pain is well controlled with current medications. On 09/15/2019 patient was seen and examined in the ICU, she is alert and oriented 3, last night she had an episode of atrial fibrillation with rapid ventricular response, she received a bolus of Cardizem, she was evaluated by cardiology this morning and dose of beta elissa was increased, at this time she is sitting up in a chair she is asymptomatic, her heart rate is well-controlled, she is still complaining of some abdominal discomfort otherwise no complaints, there was minimal amount of blood from rectum patient's thinks it's coming from her hemorrhoids, otherwise she denies any complaints there is no fever or chills no headache or dizziness no chest pain no shortness of breath no cough no nausea or vomiting patient was started on full liquid diet TPN was discontinued. No burning was urination no frequency or urgency and no hematuria Objective - Vital Signs Vital signs: Vital Signs Temp 98.7 F 09/15/19 16:00 Pulse 92 09/15/19 16:00 Resp 15 09/15/19 16:00 BP 150/110 09/15/19 16:00 Pulse Ox 97 09/15/19 16:00 Intake & Output 09/14/19 09/15/19 09/15/19 18:59 06:59 18:59 Intake Total 2467.5 2734.375 1001.625 Output Total 2110 1710 2725 Balance 357.5 1024.375 -1723.375 Weight 77.3 kg 76 kg Intake: IV 1340 1395 490 0.9 KVO 180 180 120 Fat Emulsion 20% 250 ml @ 20 240 20 20.833 mls/hr IV DAILY@ 1600 [facility] Rx#:[id number] Mvi, Adult No.4 with Vit 790 K 10 ml Trace (Conc-1Ml/ Dose) 1 ml In Amino Acid 4.25%-D10w+Lytes*E* 1,000 ml @ 75 mls/hr IV .BY DURATION [facility] Rx#: [id number] Mvi, Adult No.4 with Vit 825 225 K 10 ml Trace (Conc-1Ml/ Dose) 1 ml Potassium Chloride 15 meq In Amino Acid 4.25%-D10w+Lytes*E* 1,000 ml @ 75 mls/hr IV . BY DURATION [facility] Rx#: [id number] Piperacillin-Tazobactam 3 150 150 125 .375 gm In Sodium Chloride 0.9% 100 ml @ 25 mls/hr IVPB Q8HR [facility] Rx# :[id number] metroNIDAZOLE-NS PMX 500 200 mg In Saline 1 100ml.bag @ 100 mls/hr IVPB Q8HR [facility] Rx#:[id number] Intake, IV Titration 1007.5 1099.375 21.625 Amount Diltiazem 125 mg In 80.875 21.625 Sodium Chloride 0.9% 100 ml @ 7.5 MG/HR 7.5 mls/hr IV .[id number] [facility] Rx#: [id number] Mvi, Adult No.4 with Vit 1018.5 K 10 ml Trace (Conc-1Ml/ Dose) 1 ml Potassium Chloride 15 meq In Amino Acid 4.25%-D10w+Lytes*E* 1,000 ml @ 75 mls/hr IV . BY DURATION [facility] Rx#: [id number] Potassium Chloride 15 meq 1007.5 In Amino Acid 4.25%-D10w +Lytes*E* 1,000 ml @ 75 mls/hr IV .BY DURATION [facility] Rx#:[id number] Oral 120 240 490 Output: Urine 2110 1710 2725 Other: Voiding Method Indwelling Catheter Indwelling Catheter Indwelling Catheter # Voids 1 - Exam In general patient is alert and oriented 3 in no apparent distress HEENT head normocephalic and atraumatic Neck is supple no JVD no goiter no lymphadenopathy Chest exam reveals a few scattered crackles no wheezing Cardiac exam reveals regular heart sounds no gallops no murmurs Abdomen is soft with tenderness in the left lower quadrant and periumbilical ar ea no organomegaly with normal bowel sounds Extremity exam reveals no edema no cyanosis or clubbing Neurological examination reveals no gross focal deficit - Labs CBC & Chem 7: 09/15/19 04:07 09/15/19 04:07 Labs: Abnormal Lab Results - Last 24 Hours (Table) 09/14/19 09/14/19 09/15/19 Range/Units 18:43 21:41 04:07 WBC (3.8-10.6) k/uL Plt Count (150-450) k/uL Neutrophils # (1.3-7.7) k/uL Sodium 132 L (137-145) mmol/L Creatinine 0.44 L (0.52-1.04) mg/dL Glucose 200 H (74-99) mg/dL POC Glucose (mg/dL) 202 H 168 H (75-99) mg/dL Alkaline Phosphatase 159 H (38-126) U/L Total Protein 4.9 L (6.3-8.2) g/dL Albumin 2.3 L (3.5-5.0) g/dL 09/15/19 09/15/19 09/15/19 Range/Units 04:07 06:08 11:33 WBC 18.0 H (3.8-10.6) k/uL Plt Count 552 H (150-450) k/uL Neutrophils # 14.7 H (1.3-7.7) k/uL Sodium (137-145) mmol/L Creatinine (0.52-1.04) mg/dL Glucose (74-99) mg/dL POC Glucose (mg/dL) 178 H 216 H (75-99) mg/dL Alkaline Phosphatase (38-126) U/L Total Protein (6.3-8.2) g/dL Albumin (3.5-5.0) g/dL Assessment and Plan Plan: 1. Acute diverticulitis with abscess and microperforation and pneumoperitoneum, no significant improvement since admission despite antibiotic therapy, patient was evaluated today by Dr. Mcgrath underwent surgery yesterday as above. 2. Underlying history of hyperlipidemia 3. Previous history of breast cancer 4. History of valvular heart disease 5. Events from yesterday with flush pulmonary edema, requiring BiPAP, and transfer to ICU patient is doing much better at this time, possible transfer b ack to medical floor tomorrow 6. Atrial fibrillation heart rate is well-controlled at this time, patient had an episode of RVR last night, at this time will increase Lovenox to therapeutic dose 1 mg/kg twice daily if it's okay with surgery At this time patient is maintained on IV antibiotic Zosyn and Flagyl white blood count up from 11.8 to 14.8 and today down to 12.4 Continue current management awaiting further recommendation from infectious disease Protonix for GI prophylaxis, subcu Lovenox for DVT prophylaxis Will follow in a.m.
[2019-09-15 16:45] LABS: Glucose,Whole Blood 103 mg/dL (75-99)
[2019-09-15 19:50] LABS: Glucose,Whole Blood 150 mg/dL (75-99)
--- NOTE | 2019-09-15 21:54 | PN ---
PROGRESS NOTE DATE OF SERVICE: 09/15/2019 REASON FOR FOLLOWUP: Acute perforated sigmoid diverticulitis with abscess. INTERVAL HISTORY: The patient is currently afebrile. The patient is feeling better, breathing comfortably. Denies having any chest pain or shortness of breath or cough. Abdominal pain is currently controlled. Tolerating her diet. Did have small output in her colostomy bag. PHYSICAL EXAMINATION: Blood pressure is 100/61 with a pulse of 86. Temperature is 99. She is 95% on 4 L nasal cannula. General description is an elderly female up in the chair in no distress. RESPIRATORY SYSTEM: Unlabored breathing. Clear to auscultation anteriorly. HEART: S1, S2. Regular rate and rhythm. ABDOMEN: Soft. No tenderness. LABS: Hemoglobin is 11.8, white count of 18, BUN of 14, creatinine 0.44. DIAGNOSTIC IMPRESSION AND PLAN: Patient with acute perforated sigmoid diverticulitis with an abscess, status post laparotomy and diverting colostomy. No OR cultures. The patient is currently on Zosyn; to continue. Monitor her clinical course closely. White count is showing a downward trend. MMODL / IJN: [id number] /
[2019-09-16] MEDS: MORPHINE SULFATE 4 MG/ML SYRINGE IV PRN (00:48)
[2019-09-16] MEDS: DILTIAZEM 125 MG in SODIUM CHLORIDE 0.9% 100 ML IV SCH (04:55)
[2019-09-16] MEDS: METOCLOPRAMIDE 5 MG/ML 2 ML VIAL IVP SCH ×3 (05:50→18:38)
[2019-09-16 06:04] LABS: Basophils # (A) 0.1 k/uL (0-0.2); Basophils % (A) 1 %; Eosinophils # (A) 0.5 k/uL (0-0.7); Eosinophils % (A) 4 %; HCT 35.3 % (34.0-46.0); HGB 10.9 gm/dL (11.4-16.0); Lymphocytes # (A) 2.2 k/uL (1.0-4.8); Lymphocytes % (A) 15 %; MCH 27.2 pg (25.0-35.0); MCV 87.8 fL (80.0-100.0); Mean Platelet Volume 8.1; Monocytes # (A) 0.9 k/uL (0-1.0); Monocytes % (A) 6 %; Neutrophils # (A) 10.7 k/uL (1.3-7.7); Neutrophils % (A) 73 %; Platelet Count 504 k/uL (150-450); RBC 4.02 m/uL (3.80-5.40); RDW 13.1 % (11.5-15.5); WBC 14.6 k/uL (3.8-10.6)
[2019-09-16 06:21] LABS: Glucose,Whole Blood 97 mg/dL (75-99)
[2019-09-16 06:27] LABS: African American GFR (CKD) >90 (>60 ml/min/1.73 sqM); Anion Gap 4 mmol/L; Blood Urea Nitrogen 16 mg/dL (7-17); Calcium 8.5 mg/dL (8.4-10.2); Carbon Dioxide 29 mmol/L (22-30); Chloride 101 mmol/L (98-107); Glucose 83 mg/dL (74-99); Magnesium 1.8 mg/dL (1.6-2.3); Non-African American GFR(CKD) >90 (>60 ml/min/1.73 sqM); Phosphorus 3.4 mg/dL (2.5-4.5); Potassium 4.2 mmol/L (3.5-5.1); Sodium 134 mmol/L (137-145)
[2019-09-16] MEDS: INSULIN ASPART (NovoLOG) 100 UNIT/ML VIAL SQ SCH ×4 (06:30→21:15)
[2019-09-16] MEDS: MAGNESIUM SULFATE-D5W PMX 1 GM in DEXTROSE/WATER 1 100ML.BAG IVPB SCH ×2 (06:44→08:17)
[2019-09-16] MEDS: PANTOPRAZOLE 40 MG/10 ML VIAL IVP SCH (08:16)
[2019-09-16] MEDS: FUROSEMIDE 10 MG/ML 4 ML VIAL IV SCH ×2 (08:16→20:45)
[2019-09-16] MEDS: METOPROLOL TARTRATE 50 MG TAB PO SCH ×2 (08:17→20:44)
[2019-09-16] MEDS: PIPERACILLIN-TAZOBACTAM 3.375 GM in SODIUM CHLORIDE 0.9% 100 ML IVPB SCH ×2 (08:17→16:14)
[2019-09-16] MEDS: ENOXAPARIN 40 MG/0.4 ML SYRINGE SQ SCH (08:17)
--- NOTE | 2019-09-16 09:01 | XR ---
EXAMINATION TYPE: XR chest 1V portable DATE OF EXAM: 09/16/2019 COMPARISON: 09/15/2019 HISTORY: Shortness of breath TECHNIQUE: Single frontal view of the chest is obtained. FINDINGS: There is improving interstitial pattern and areas of bilateral consolidation with tiny eff usion. Heart size normal. Atherosclerotic change aorta. No sizable pneumothorax. Surgical clip overly ing the left chest and breast. IMPRESSION: 1. Improving x-ray demonstrating reducing interstitial and alveolar consolidation most typical of res olving CHF. Correlate clinically to exclude pneumonia.
--- NOTE | 2019-09-16 11:10 | P.PN ---
Subjective Progress Note Date: 09/16/19 On 09/16/2019, the patient is doing well. The patient is tolerating liquids and she had flatness and has no significant abdominal distention. TPN has been discontinued. No abdominal pain. The patient has positive output in her colostomy bag and a colostomy site is functionally viable at this point in time. No respiratory difficulties. Echocardiogram was repeated and the patient has no significant abnormalities in her ejection fraction is within normal limits. Her cardiac rhythm is sinus, is off the Cardizem drip. She is on oral metoprolol. Her chest x-ray is also showing improvement in pulmonary edema and the patient is on Lasix 40 mg IV push every 12 hours. She remains on IV Zosyn. She is taking metoprolol 50 mg by mouth twice a day and she is off the Cardizem for now. Pain control with Dilaudid 0.5 mg every every 6 hours on a when necessary basis. No altered mentation. No other new complaints otherwise for now. Overall, the patient has been negative fluid balance. She has diuresed aggressively over the past 24 hours and she has dropped her weight down to 75 kg and her fluid balance is -3.9 L. Objective - Vital Signs Vital signs: Vital Signs Temp 98.3 F 09/16/19 08:00 Pulse 91 09/16/19 10:00 Resp 22 09/16/19 08:00 BP 114/69 09/16/19 10:00 Pulse Ox 93 L 09/16/19 10:00 Intake & Output 09/15/19 09/16/19 09/16/19 18:59 06:59 18:59 Intake Total 1051.625 365 340 Output Total 3225 2100 925 Balance -2173.375 -1735 -585 Weight 75.2 kg 75.2 kg Intake: IV 540 245 40 0.9 KVO 120 120 40 Fat Emulsion 20% 250 ml @ 20 20.833 mls/hr IV DAILY@ 1600 [facility] Rx#:[id number] Mvi, Adult No.4 with Vit 225 K 10 ml Trace (Conc-1Ml/ Dose) 1 ml Potassium Chloride 15 meq In Amino Acid 4.25%-D10w+Lytes*E* 1,000 ml @ 75 mls/hr IV . BY DURATION [facility] Rx#: [id number] Piperacillin-Tazobactam 3 175 125 .375 gm In Sodium Chloride 0.9% 100 ml @ 25 mls/hr IVPB Q8HR [facility] Rx# :[id number] Intake, IV Titration 21.625 300 Amount Diltiazem 125 mg In 21.625 Sodium Chloride 0.9% 100 ml @ 7.5 MG/HR 7.5 mls/hr IV .[id number] [facility] Rx#: [id number] Magnesium Sulfate-D5w Pmx 200 1 gm In Dextrose/Water 1 100ml.bag @ 100 mls/hr IVPB Q1H [facility] Rx#: [id number] Piperacillin-Tazobactam 3 100 .375 gm In Sodium Chloride 0.9% 100 ml @ 25 mls/hr IVPB Q8HR [facility] Rx# :[id number] Oral 490 120 Output: Drainage 10 Abdomen 10 Urine 2875 1540 925 Stool 350 550 Other: Voiding Method Indwelling Catheter Indwelling Catheter Indwelling Catheter # Voids 1 - Exam GENERAL EXAM: Alert, very pleasant, 69-year-old white female, on 4 L of oxygen, sitting up in a chair, in no acute distress comfortable in no apparent distress. HEAD: Normocephalic/atraumatic. EYES: Normal reaction of pupils, equal size. Conjunctiva pink, sclera white. NOSE: Clear with pink turbinates. THROAT: No erythema or exudates. NECK: No masses, no JVD, no thyroid enlargement, no adenopathy. CHEST: No chest wall deformity. Symmetrical expansion. LUNGS: Equal air entry with no crackles, wheeze, rhonchi or dullness. CVS: Regular rate and rhythm, normal S1 and S2, no gallops, no murmurs, no rubs ABDOMEN: Soft, nontender. No hepatosplenomegaly, normal bowel sounds, no guarding or rigidity. Abdominal incision is clean dry and intact, covered with surgical dressing, colostomy without output or gas, KATARINA drain with serosanguineous output. The colostomy is viable and there is some functionality with some limited amount of stool formation in the colostomy bag. There is hypoactive yet present bowel sounds. EXTREMITIES: No clubbing, no edema, no cyanosis, 2+ pulses and upper and lower extremities. MUSCULOSKELETAL: Muscle strength and tone normal. SPINE: No scoliosis or deformity SKIN: No rashes CENTRAL NERVOUS SYSTEM: Alert and oriented -3. No focal deficits, tone is normal in all 4 extremities. PSYCHIATRIC: Alert and oriented -3. Appropriate affect. Intact judgment and insight. - Labs CBC & Chem 7: 09/16/19 04:41 09/16/19 04:41 Labs: Abnormal Lab Results - Last 24 Hours (Table) 09/15/19 09/15/19 09/15/19 Range/Units 11:33 16:44 19:48 WBC (3.8-10.6) k/uL Hgb (11.4-16.0) gm/dL Plt Count (150-450) k/uL Neutrophils # (1.3-7.7) k/uL Sodium (137-145) mmol/L POC Glucose (mg/dL) 216 H 103 H 150 H (75-99) mg/dL 09/16/19 09/16/19 Range/Units 04:41 04:41 WBC 14.6 H (3.8-10.6) k/uL Hgb 10.9 L (11.4-16.0) gm/dL Plt Count 504 H (150-450) k/uL Neutrophils # 10.7 H (1.3-7.7) k/uL Sodium 134 L (137-145) mmol/L POC Glucose (mg/dL) (75-99) mg/dL Assessment and Plan Plan: #1. Acute hypoxic respiratory failure related to loud overload, pulmonary edema, possibility of CHF exacerbation with previously documented preserved LV function, and the patient improved with diuresis. IV fluids at KVO. The patient required noninvasive positive pressure ventilation for a period of time and currently she is on 4lby nasal cannula. Breath sounds are quite diminished in lung bases bilaterally and the patient needs to be further diuresis for another 24 hours. The patient got diuresed with IV Lasix. Repeat chest x-ray shows improvement in the volume status. She still has crackles at lung bases bilaterally. I which is just considering the Lasix from 24 hours. Her weight is down to 75 kg which is around 3 kg less than the patient is a negative fluid balance of 3.9 L over the past 24 hours. She is calm and comfortable. A repeat echocardiogram shows no valvular abnormalities. LV within normal limits. #2. Acute perforated diverticulitis with pelvic abscess and interloop abscess, status post Gomez's procedure, takedown of splenic flexure, and drainage of interloop abscess and colostomy creation, postoperative day 4, and on today's evaluation the colostomy site is viable and is showing some functionality. #3. Hyperlipidemia #4. History of left breast cancer in 2002, status post lumpectomy and chemoradiation #5. History of nicotine dependence, currently in remission #6 leukocytosis, improving Plan Continue Zosyn as an empiric antibiotic coverage Advance diet as tolerated TPN is currently off Give Lasix 40 mg every every 12 hours and doses been adjusted Cardizem drip has been discontinued metoprolol to 50 mg by mouth twice a day Repeat echocardiogram was noted and the patient has no significant abnormalities Increase mobility Cardiology to follow-up on atrial fibrillation Repeat chest x-ray in a.m. [place] for DVT prophylaxis We'll continue to follow
[2019-09-16 11:56] LABS: Glucose,Whole Blood 174 mg/dL (75-99)
--- NOTE | 2019-09-16 13:42 | P.PN ---
Subjective Progress Note Date: 09/16/19 CHIEF COMPLAINT: abdominal pain HISTORY OF PRESENT ILLNESS: Patient is status post Jacinto procedure, takedown of splenic flexure, drainage of interloop abscess, and colostomy creation with Dr. Mcgrath. POD #5. Patient examined in the ICU with Dr. Mcgrath. Pain tolerable. Tolerating full liquid diet. Ostomy with gas and stool noted. WBC 14.6. PHYSICAL EXAM: VITAL SIGNS: Reviewed. GENERAL: Well-developed in no acute distress. HEENT: No sclera icterus. Extraocular movements grossly intact. Moist buccal mucosa. Head is atraumatic, normocephalic. ABDOMEN: Soft. Nondistended. Dressing CDI. Ostomy with gas and stool noted. KATARINA drain with serosanguineous drainage NEUROLOGIC: Alert and oriented. Cranial nerves II through XII grossly intact. ASSESSMENT: 1. Perforated diverticulitis with pelvic abscess and interloop abscess 2. Hiatal hernia PLAN: -Continue antibiotics -Continue full liquid diet -Activity as tolerated -Incentive spirometer -Pulmonary management per Dr. Harmeet Rosario to transfer to general medical floor Nurse practitioner note has been reviewed by physician. Signing provider agrees with the documented findings, assessment, and plan of care. Objective - Vital Signs Vital signs: Vital Signs Temp 98.3 F 09/16/19 08:00 Pulse 92 09/16/19 08:00 Resp 22 09/16/19 08:00 BP 148/85 09/16/19 09:00 Pulse Ox 93 L 09/16/19 09:00 Intake & Output 09/15/19 09/16/19 09/16/19 18:59 06:59 18:59 Intake Total 1051.625 365 230 Output Total 3225 2100 125 Balance -2173.375 -1735 105 Weight 75.2 kg Intake: IV 540 245 30 0.9 KVO 120 120 30 Fat Emulsion 20% 250 ml @ 20 20.833 mls/hr IV DAILY@ 1600 [facility] Rx#:[id number] Mvi, Adult No.4 with Vit 225 K 10 ml Trace (Conc-1Ml/ Dose) 1 ml Potassium Chloride 15 meq In Amino Acid 4.25%-D10w+Lytes*E* 1,000 ml @ 75 mls/hr IV . BY DURATION [facility] Rx#: [id number] Piperacillin-Tazobactam 3 175 125 .375 gm In Sodium Chloride 0.9% 100 ml @ 25 mls/hr IVPB Q8HR [facility] Rx# :[id number] Intake, IV Titration 21.625 200 Amount Diltiazem 125 mg In 21.625 Sodium Chloride 0.9% 100 ml @ 7.5 MG/HR 7.5 mls/hr IV .[id number] [facility] Rx#: [id number] Magnesium Sulfate-D5w Pmx 200 1 gm In Dextrose/Water 1 100ml.bag @ 100 mls/hr IVPB Q1H [facility] Rx#: [id number] Oral 490 120 Output: Drainage 10 Abdomen 10 Urine 2875 1540 125 Stool 350 550 Other: Voiding Method Indwelling Catheter Indwelling Catheter Indwelling Catheter # Voids 1 - Labs CBC & Chem 7: 09/16/19 04:41 09/16/19 04:41 Labs: Abnormal Lab Results - Last 24 Hours (Table) 09/15/19 09/15/19 09/15/19 Range/Units 11:33 16:44 19:48 WBC (3.8-10.6) k/uL Hgb (11.4-16.0) gm/dL Plt Count (150-450) k/uL Neutrophils # (1.3-7.7) k/uL Sodium (137-145) mmol/L POC Glucose (mg/dL) 216 H 103 H 150 H (75-99) mg/dL 09/16/19 09/16/19 Range/Units 04:41 04:41 WBC 14.6 H (3.8-10.6) k/uL Hgb 10.9 L (11.4-16.0) gm/dL Plt Count 504 H (150-450) k/uL Neutrophils # 10.7 H (1.3-7.7) k/uL Sodium 134 L (137-145) mmol/L POC Glucose (mg/dL) (75-99) mg/dL
--- NOTE | 2019-09-16 14:41 | PN ---
PROGRESS NOTE 69-year-old lady that we were asked to see yesterday because of paroxysmal episodes of atrial fibrillation. She converted back to sinus rhythm. The patient has not been started on intravenous heparin secondary to concerns from the surgeon. This morning, patient appears comfortable at rest. Heart rate is 90 beats per minute. Blood pressure is 114/69, respiratory rate 18. Chest exam reveals diminished air entry at the bases. Heart exam reveals first and second heart sounds. No gallop. No murmur. Abdomen is soft. Abdomen is status post surgery. Exam of extremities did not reveal any edema. Labs show a hemoglobin of 10.9. Potassium is 4.2, creatinine is 0.58. The echocardiogram shows normal LV systolic function with mild pulmonary hypertension. Mild mitral and tricuspid regurgitation. Chest x-ray shows improving congestive heart failure. The patient is currently on IV Lasix, Lopressor 50 b.i.d. ASSESSMENT: 1. Paroxysmal atrial fibrillation. 2. Acute onset diastolic heart failure, probably related to fluid overload. 3. Dyslipidemia. PLAN: Start the patient on IV heparin when okay with surgery and switch to Eliquis and Xarelto. MMODL / IJN: [id number] /
--- NOTE | 2019-09-16 15:22 | P.PN ---
Subjective Progress Note Date: 09/16/19 Courtney Castellano is a 69-year-old female well known to my practice who presented to [facility] emergency room with a chief complaint of abdominal pain that started 3 days prior to admission and has been worsening. Patient describes pain mostly in the left lower quadrant she had episodes of nausea and vomiting she also had diarrhea. She denies any blood in the stools, she had one episode of low-grade fever otherwise no fever or chills no headache or dizziness no chest pain no shortness of breath no cough no burning with urination no frequency or urgency and no hematuria. Patient was evaluated in the emergency room, she had a computed tomography scan of the abdomen and pelvis as outpatient that revealed evidence of acute diverticulitis with pericolonic abscess and pneumoperitoneum in the pelvis and along the diaphragmatic border. She was admitted to the hospital and was started on IV antibiotics. Patient states that she had 1 previous episode of acute diverticulitis while she was in [place] she was treated with antibiotic and improved. She denies any previous surgery on her Colon. She has a known previous history of cholecystectomy, her past medical history also significant for history of breast cancer, history of hypertension, history of hyperlipidemia, and history of valvular heart disease. On 09/07/2019 patient was seen and examined on the medical floor she is alert and oriented 3 in no apparent distress she is still complaining of abdominal pain mostly in the left lower quadrant otherwise she denies any complaints there is no fever or chills no headache or dizziness no chest pain no shortness of breath no cough no nausea or vomiting no diarrhea and no urinary symptoms. On 09/08/2019 patient was seen and examined on the medical floor she is alert and oriented 3 in no apparent distress she is still complaining of mild discomfort in the lower abdominal area otherwise she denies any complaints there is no fever or chills no headache or dizziness no chest pain no shortness of breath no cough no nausea or vomiting there is some diarrhea but no mucus or blood in the stools there is no urinary symptoms. On 09/09/2019 patient was seen and examined on the medical floor she is still complaining of abdominal discomfort white blood count is still elevated at 12.2 patient had 1 episode of dizziness and presyncope while walking in her room, otherwise patient denies any complaints there is no fever or chills no headache no chest pain or shortness of breath no cough no nausea or vomiting, no blood in the stools no burning was urination no frequency or urgency and no hematuria. On 09/10/2019 Patient was seen and examined on the medical floor, she is alert and oriented in no distress, she is still complaining of abdominal pain, there is no fever or chills, no headache or dizziness no chest pain no shortness of breath no cough no nausea or vomiting no diarrhea and no urinary symptoms. On 09/11/2019 Patient was seen and examined on the medical floor, she is alert and oriented in no distress, she is still complaining of abdominal pain, white blood count is up to 12.9 despite antibiotic therapy. Potassium is low patient is receiving potassium replacement protocol. She was evaluated by Dr. Mcgrath and he is planning to proceed with surgery today. On 09/12/2019 patient was seen and examined on the medical floor she is alert and oriented 3 in no apparent distress she is complaining of abdominal pain with any movement or cough. Otherwise she denies any complaints, yesterday she underwent surgery with Dr. Mcgrath she had Jacinto procedure with takedown of splenic flexure and drainage of abscess, white blood count is elevated at 15.3 otherwise patient denies any symptoms there is no fever or chills no headache or dizziness no chest pain no shortness of breath no cough no nausea or vomiting and no urinary symptoms On 09/13/2019 patient was seen and examined in the ICU she is alert and oriented 3 in no apparent distress she is sitting up in a chair, last night patient had episode of severe shortness of breath, chest x-ray revealed evidence of flash pulmonary edema, she was transferred to ICU she required BiPAP and IV Lasix, IV fluid Were decreased, patient is doing much better at this time, there is no fever or chills no headache or dizziness no chest pain no shortness of breath no cough no nausea or vomiting no abdominal pain no diarrhea and no urinary symptoms, colostomy bag is empty without any liquid stool management, drainage bag reveals small amount of bloody drainage. On 09/14/2019 patient was seen and examined in the ICU, she is alert and oriented 3 in no apparent distress, there is no fever or chills no headache or dizziness, no chest pain no shortness of breath no cough no nausea or vomiting, no diarrhea no burning was urination no frequency or urgency no hematuria, she has moderate abdominal pain especially with any movement, pain is well controlled with current medications. On 09/15/2019 patient was seen and examined in the ICU, she is alert and oriented 3, last night she had an episode of atrial fibrillation with rapid ventricular response, she received a bolus of Cardizem, she was evaluated by cardiology this morning and dose of beta elissa was increased, at this time she is sitting up in a chair she is asymptomatic, her heart rate is well-controlled, she is still complaining of some abdominal discomfort otherwise no complaints, there was minimal amount of blood from rectum patient's thinks it's coming from her hemorrhoids, otherwise she denies any complaints there is no fever or chills no headache or dizziness no chest pain no shortness of breath no cough no nausea or vomiting patient was started on full liquid diet TPN was discontinued. No burning was urination no frequency or urgency and no hematuria. On 09/16/2019 patient was seen and examined in the ICU, she is doing better today and there is no fever or chills no headache or dizziness no chest pain no shortness of breath no cough no nausea or vomiting no abdominal pain no diarrhea no burning was urination no frequency or urgency and no hematuria, there is liquid brown stool in the colostomy bag, no new episodes of rapid ventricular response Objective - Vital Signs Vital signs: Vital Signs Temp 98.3 F 09/16/19 08:00 Pulse 91 09/16/19 10:00 Resp 22 09/16/19 08:00 BP 114/69 09/16/19 10:00 Pulse Ox 93 L 09/16/19 10:00 Intake & Output 09/15/19 09/16/19 09/16/19 18:59 06:59 18:59 Intake Total 1051.625 365 340 Output Total 3225 2022 925 Balance -2173.375 -1735 -585 Weight 75.2 kg 75.2 kg Intake: IV 540 245 40 0.9 KVO 120 120 40 Fat Emulsion 20% 250 ml @ 20 20.833 mls/hr IV DAILY@ 1600 [facility] Rx#:[id number] Mvi, Adult No.4 with Vit 225 K 10 ml Trace (Conc-1Ml/ Dose) 1 ml Potassium Chloride 15 meq In Amino Acid 4.25%-D10w+Lytes*E* 1,000 ml @ 75 mls/hr IV . BY DURATION [facility] Rx#: [id number] Piperacillin-Tazobactam 3 175 125 .375 gm In Sodium Chloride 0.9% 100 ml @ 25 mls/hr IVPB Q8HR [facility] Rx# :[id number] Intake, IV Titration 21.625 300 Amount Diltiazem 125 mg In 21.625 Sodium Chloride 0.9% 100 ml @ 7.5 MG/HR 7.5 mls/hr IV .[id number] [facility] Rx#: [id number] Magnesium Sulfate-D5w Pmx 200 1 gm In Dextrose/Water 1 100ml.bag @ 100 mls/hr IVPB Q1H [facility] Rx#: [id number] Piperacillin-Tazobactam 3 100 .375 gm In Sodium Chloride 0.9% 100 ml @ 25 mls/hr IVPB Q8HR [facility] Rx# :[id number] Oral 490 120 Output: Drainage 10 Abdomen 10 Urine 2875 1540 925 Stool 350 550 Other: Voiding Method Indwelling Catheter Indwelling Catheter Indwelling Catheter # Voids 1 - Exam In general patient is alert and oriented 3 in no apparent distress HEENT head normocephalic and atraumatic Neck is supple no JVD no goiter no lymphadenopathy Chest exam reveals a few scattered crackles no wheezing Cardiac exam reveals regular heart sounds no gallops no murmurs Abdomen is soft with tenderness in the left lower quadrant and periumbilical area no organomegaly with normal bowel sounds Extremity exam reveals no edema no cyanosis or clubbing Neurological examination reveals no gross focal deficit - Labs CBC & Chem 7: 09/16/19 04:41 09/16/19 04:41 Labs: Abnormal Lab Results - Last 24 Hours (Table) 09/15/19 09/15/19 09/16/19 Range/Units 16:44 19:48 04:41 WBC 14.6 H (3.8-10.6) k/uL Hgb 10.9 L (11.4-16.0) gm/dL Plt Count 504 H (150-450) k/uL Neutrophils # 10.7 H (1.3-7.7) k/uL Sodium (137-145) mmol/L POC Glucose (mg/dL) 103 H 150 H (75-99) mg/dL 09/16/19 09/16/19 Range/Units 04:41 11:54 WBC (3.8-10.6) k/uL Hgb (11.4-16.0) gm/dL Plt Count (150-450) k/uL Neutrophils # (1.3-7.7) k/uL Sodium 134 L (137-145) mmol/L POC Glucose (mg/dL) 174 H (75-99) mg/dL Assessment and Plan Plan: 1. Acute diverticulitis with abscess and microperforation and pneumoperitoneum, no significant improvement since admission despite antibiotic therapy, patient was evaluated today by Dr. Mcgrath underwent surgery yesterday as above. 2. Underlying history of hyperlipidemia 3. Previous history of breast cancer 4. History of valvular heart disease 5. Events from yesterday with flush pulmonary edema, requiring BiPAP, and transfer to ICU patient is doing much better at this time, possible transfer back to medical floor tomorrow 6. Atrial fibrillation heart rate is well-controlled at this time, patient had an episode of RVR last night, at this time will increase Lovenox to therapeutic dose 1 mg/kg twice daily if it's okay with surgery At this time patient is maintained on IV antibiotic Zosyn white blood count 14.6 Patient is being transferred out of ICU to the medical floor when bed is available Continue current management awaiting further recommendation from infectious disease Protonix for GI prophylaxis, subcu Lovenox for DVT prophylaxis Will follow in a.m.
--- NOTE | 2019-09-16 17:04 | PN ---
PROGRESS NOTE DATE OF SERVICE: 09/16/2019 REASON FOR FOLLOWUP: Acute sigmoid diverticulitis, perforated, with intraabdominal abscess. INTERVAL HISTORY: The patient is currently afebrile. The patient is comfortably. The patient denies having any chest pain, shortness of breath or cough. Abdominal pain has improved. Did have output in her colostomy bag and is tolerating her diet. PHYSICAL EXAMINATION: Blood pressure 128/85 with a pulse of 87, temperature 98.9. She is 95% on room air. General description is an elderly female lying in bed in no distress. RESPIRATORY SYSTEM: Unlabored breathing. Clear to auscultation anteriorly. HEART: S1, S2. Regular rate and rhythm. ABDOMEN: Soft. No tenderness. LABS: White count is down to 14.6 with a creatinine 0.58. DIAGNOSTIC IMPRESSION AND PLAN: Patient with perforated sigmoid diverticulitis with an abscess and intraabdominal abscess, status post laparotomy and drainage of the abscess. Patient is currently on Zosyn. White count showing a downward trend. To continue and monitor clinical course closely. MMODL / IJN: [id number] /
[2019-09-16 17:43] LABS: Glucose,Whole Blood 135 mg/dL (75-99)
[2019-09-16 20:53] LABS: Glucose,Whole Blood 158 mg/dL (75-99)
[2019-09-17] MEDS: PIPERACILLIN-TAZOBACTAM 3.375 GM in SODIUM CHLORIDE 0.9% 100 ML IVPB SCH ×3 (00:59→15:04)
[2019-09-17] MEDS: METOCLOPRAMIDE 5 MG/ML 2 ML VIAL IVP SCH ×2 (00:59→06:21)
[2019-09-17 06:44] LABS: Glucose,Whole Blood 108 mg/dL (75-99)
[2019-09-17] MEDS: INSULIN ASPART (NovoLOG) 100 UNIT/ML VIAL SQ SCH ×4 (06:51→21:57)
[2019-09-17] MEDS: METOPROLOL TARTRATE 50 MG TAB PO SCH ×2 (08:47→22:06)
[2019-09-17] MEDS: ENOXAPARIN 40 MG/0.4 ML SYRINGE SQ SCH (08:47)
[2019-09-17] MEDS: FUROSEMIDE 40 MG TAB PO SCH (08:47)
[2019-09-17] MEDS: PANTOPRAZOLE 40 MG/10 ML VIAL IVP SCH (08:47)
[2019-09-17] MEDS ORDERED: FUROSEMIDE 10 MG/ML 4 ML VIAL IV SCH (09:00)
--- NOTE | 2019-09-17 10:29 | P.PN ---
Subjective Progress Note Date: 09/17/19 On 09/17/2019 on seeing this patient for a follow-up. Patient is on 2 L of oxygen by nasal cannula which can be given wean down further. The patient with diabetes IV Lasix. She has been negative fluid balance of more than 3.9 L over the past 24 hours and she continues to produce adequate amount of urine output. No chest pain. No cough. No sputum production. No chest tightness. No wheezing. The colostomy is functional. Cardiac rhythm is sinus. The patient on oral metoprolol. The patient is on Lasix. IV antibiotic coverage is with Zosyn. The patient is ambulating. No nausea. No vomiting. No emesis. No altered mentation is no chest pain. Objective - Vital Signs Vital signs: Vital Signs Temp 98.6 F 09/17/19 07:00 Pulse 80 09/17/19 07:00 Resp 18 09/17/19 07:00 BP 136/83 09/17/19 07:00 Pulse Ox 95 09/17/19 07:00 Intake & Output 09/16/19 09/17/19 09/17/19 18:59 06:59 18:59 Intake Total 340 255 Output Total 1925 2800 Balance -1585 -2545 Weight 75.2 kg 70.2 kg Intake: IV 40 255 0.9 KVO 40 155 Piperacillin-Tazobactam 3 100 .375 gm In Sodium Chloride 0.9% 100 ml @ 25 mls/hr IVPB Q8HR [facility] Rx# :[id number] Intake, IV Titration 300 Amount Magnesium Sulfate-D5w Pmx 200 1 gm In Dextrose/Water 1 100ml.bag @ 100 mls/hr IVPB Q1H [facility] Rx#: [id number] Piperacillin-Tazobactam 3 100 .375 gm In Sodium Chloride 0.9% 100 ml @ 25 mls/hr IVPB Q8HR [facility] Rx# :[id number] Output: Urine 1925 2800 Other: Voiding Method Indwelling Catheter Indwelling Catheter - Exam GENERAL EXAM: Alert, very pleasant, 69-year-old white female, on room air oxygen, sitting up in a chair, in no acute distress comfortable in no apparent distress. HEAD: Normocephalic/atraumatic. EYES: Normal reaction of pupils, equal size. Conjunctiva pink, sclera white. NOSE: Clear with pink turbinates. THROAT: No erythema or exudates. NECK: No masses, no JVD, no thyroid enlargement, no adenopathy. CHEST: No chest wall deformity. Symmetrical expansion. , Minimal crackles at lung bases bilaterally LUNGS: Equal air entry with no crackles, wheeze, rhonchi or dullness. CVS: Regular rate and rhythm, normal S1 and S2, no gallops, no murmurs, no rubs ABDOMEN: Soft, nontender. No hepatosplenomegaly, normal bowel sounds, no guarding or rigidity. Abdominal incision is clean dry and intact, covered with surgical dressing, colostomy without output or gas, KATARINA drain with serosanguineous output. The colostomy is viable and there is some functionality with some limited amount of stool formation in the colostomy bag. There is hypoactive yet present bowel sounds. EXTREMITIES: No clubbing, no edema, no cyanosis, 2+ pulses and upper and lower extremities. MUSCULOSKELETAL: Muscle strength and tone normal. SPINE: No scoliosis or deformity SKIN: No rashes CENTRAL NERVOUS SYSTEM: Alert and oriented -3. No focal deficits, tone is normal in all 4 extremities. PSYCHIATRIC: Alert and oriented -3. Appropriate affect. Intact judgment and insight. - Labs CBC & Chem 7: 09/16/19 04:41 09/16/19 04:41 Labs: Abnormal Lab Results - Last 24 Hours (Table) 09/16/19 09/16/19 09/16/19 Range/Units 11:54 17:42 20:52 POC Glucose (mg/dL) 174 H 135 H 158 H (75-99) mg/dL 09/17/19 Range/Units 06:42 POC Glucose (mg/dL) 108 H (75-99) mg/dL Assessment and Plan Plan: #1. Acute hypoxic respiratory failure related to loud overload, pulmonary edema, possibility of CHF exacerbation with previously documented preserved LV function, and the patient improved with diuresis. IV fluids at KVO. The patient is currently on room air oxygen. Acute pulmonary edema is much recovered. She has been diuresed aggressively. A repeat echocardiogram shows no valvular abnormalities. LV within normal limits. #2. Acute perforated diverticulitis with pelvic abscess and interloop abscess, status post Gomez's procedure, takedown of splenic flexure, and drainage of interloop abscess and colostomy creation, postoperative day 4, and on today's evaluation the colostomy site is viable and is showing some functionality. #3. Hyperlipidemia #4. History of left breast cancer in 2002, status post lumpectomy and chemoradiation #5. History of nicotine dependence, currently in remission #6 leukocytosis, improving Plan Continue Zosyn as an empiric antibiotic coverage Advance diet as tolerated Lasix 40 mg by mouth daily and this continued IV Lasix metoprolol to 50 mg by mouth twice a day Repeat echocardiogram was noted and the patient has no significant abnormalities Increase mobility Repeat chest x-ray in a.m. [facility] for DVT prophylaxis Transfer out of the intensive care unit We'll continue to follow
--- NOTE | 2019-09-17 11:09 | P.PN ---
Subjective Progress Note Date: 09/17/19 CHIEF COMPLAINT: Perforated diverticulitis HISTORY OF PRESENT ILLNESS: The patient is a 69-year-old female status post colectomy ostomy creation for perforated diverticulitis, 09/11/2019. She is pos top day 6. She is tolerating full liquid diet. No fevers. No abdominal pain. WBC is still pending was elevated 14,800. ROS: No reports of nausea and vomiting. Having bowel movements through ostomy. No fevers or chills. No new chest pain. No productive sputum. History of atrial fibrillation PHYSICAL EXAM: VITAL SIGNS: Reviewed CONSTITUTIONAL: Well developed and in no acute distress. EYES: Conjuctivae without sclera icterus. Extraocular movements grossly intact. HEAD, EARS, NOSE, THROAT: Moist buccal mucosa. Head is atraumatic, normocephalic. Hears conversational speech. No nasal drainage. NECK: Supple. No thyroidomegaly. RESPIRATORY: Non-labored respirations and equal bilateral excursions. CARDIOVASCULAR: Palpable 2+ radial pulses. Regular rate. Regular rhythm. ABDOMEN: Soft. No peritonitis. Ostomy pink and patent. Incision and dressing intact. KATARINA is serous sanguinous. MUSCULOSKELETAL: No gross deformity of the lower extremities noted. No clubbing. No cyanosis. SKIN: Good skin turgor. Well perfused. NEUROLOGIC: Cranial nerves II through XII grossly intact. No focal or lateralizing signs. PSYCH: Appropriate affect. Alert and oriented to person, place and time. CLINICAL LABS: WBC is still pending was elevated 14,800. ASSESSMENT: 1. Perforated diverticulitis PLAN: 1. Maintain liquid diet and full. 2. Continue IV antibiotics due to persistent leukocytosis 3. Recommend repeat CBC the guide anticoagulant therapy and antibiotic therapy Objective - Vital Signs Vital signs: Vital Signs Temp 98.6 F 09/17/19 07:00 Pulse 80 09/17/19 07:00 Resp 18 09/17/19 07:00 BP 136/83 09/17/19 07:00 Pulse Ox 95 09/17/19 07:00 Intake & Output 09/16/19 09/17/19 09/17/19 18:59 06:59 18:59 Intake Total 340 255 Output Total 3804 0281 Balance -6959 -6814 Weight 75.2 kg 70.2 kg Intake: IV 40 255 0.9 KVO 40 155 Piperacillin-Tazobactam 3 100 .375 gm In Sodium Chloride 0.9% 100 ml @ 25 mls/hr IVPB Q8HR [facility] Rx# :[id number] Intake, IV Titration 300 Amount Magnesium Sulfate-D5w Pmx 200 1 gm In Dextrose/Water 1 100ml.bag @ 100 mls/hr IVPB Q1H [facility] Rx#: [id number] Piperacillin-Tazobactam 3 100 .375 gm In Sodium Chloride 0.9% 100 ml @ 25 mls/hr IVPB Q8HR [facility] Rx# :[id number] Output: Urine 1925 2800 Other: Voiding Method Indwelling Catheter Indwelling Catheter # Voids 1 - Labs CBC & Chem 7: 09/16/19 04:41 09/16/19 04:41 Labs: Abnormal Lab Results - Last 24 Hours (Table) 09/16/19 09/16/19 09/16/19 Range/Units 11:54 17:42 20:52 POC Glucose (mg/dL) 174 H 135 H 158 H (75-99) mg/dL 09/17/19 Range/Units 06:42 POC Glucose (mg/dL) 108 H (75-99) mg/dL Assessment and Plan (1) Perforation of sigmoid colon due to diverticulitis Current Visit: Yes Status: Acute Code(s): K57.20 - DVTRCLI OF LG INT W PERFORATION AND ABSCESS W/O BLEEDING SNOMED Code(s): 2236842087445926 (2) Atrial fibrillation Current Visit: Yes Status: Acute Code(s): I48.91 - UNSPECIFIED ATRIAL FIBRILLATION SNOMED Code(s): 43202660 (3) Sepsis Current Visit: Yes Status: Acute Code(s): A41.9 - SEPSIS, UNSPECIFIED ORGANISM SNOMED Code(s): 04764492
[2019-09-17 11:27] LABS: Glucose,Whole Blood 148 mg/dL (75-99)
--- NOTE | 2019-09-17 13:14 | P.PN ---
Subjective Progress Note Date: 09/17/19 Courtney Castellano is a 69-year-old female well known to my practice who presented to [facility] emergency room with a chief complaint of abdominal pain that started 3 days prior to admission and has been worsening. Patient describes pain mostly in the left lower quadrant she had episodes of nausea and vomiting she also had diarrhea. She denies any blood in the stools, she had one episode of low-grade fever otherwise no fever or chills no headache or dizziness no chest pain no shortness of breath no cough no burning with urination no frequency or urgency and no hematuria. Patient was evaluated in the emergency room, she had a computed tomography scan of the abdomen and pelvis as outpatient that revealed evidence of acute diverticulitis with pericolonic abscess and pneumoperitoneum in the pelvis and along the diaphragmatic border. She was admitted to the hospital and was started on IV antibiotics. Patient states that she had 1 previous episode of acute diverticulitis while she was in [place] she was treated with antibiotic and improved. She denies any previous surgery on her Colon. She has a known previous history of cholecystectomy, her past medical history also significant for history of breast cancer, history of hypertension, history of hyperlipidemia, and history of valvular heart disease. On 09/07/2019 patient was seen and examined on the medical floor she is alert and oriented 3 in no apparent distress she is still complaining of abdominal pain mostly in the left lower quadrant otherwise she denies any complaints there is no fever or chills no headache or dizziness no chest pain no shortness of breath no cough no nausea or vomiting no diarrhea and no urinary symptoms. On 09/08/2019 patient was seen and examined on the medical floor she is alert and oriented 3 in no apparent distress she is still complaining of mild discomfort in the lower abdominal area otherwise she denies any complaints there is no fever or chills no headache or dizziness no chest pain no shortness of breath no cough no nausea or vomiting there is some diarrhea but no mucus or blood in the stools there is no urinary symptoms. On 09/09/2019 patient was seen and examined on the medical floor she is still complaining of abdominal discomfort white blood count is still elevated at 12.2 patient had 1 episode of dizziness and presyncope while walking in her room, otherwise patient denies any complaints there is no fever or chills no headache no chest pain or shortness of breath no cough no nausea or vomiting, no blood in the stools no burning was urination no frequency or urgency and no hematuria. On 09/10/2019 Patient was seen and examined on the medical floor, she is alert and oriented in no distress, she is still complaining of abdominal pain, there is no fever or chills, no headache or dizziness no chest pain no shortness of breath no cough no nausea or vomiting no diarrhea and no urinary symptoms. On 09/11/2019 Patient was seen and examined on the medical floor, she is alert and oriented in no distress, she is still complaining of abdominal pain, white blood count is up to 12.9 despite antibiotic therapy. Potassium is low patient is receiving potassium replacement protocol. She was evaluated by Dr. Mcgrath and he is planning to proceed with surgery today. On 09/12/2019 patient was seen and examined on the medical floor she is alert and oriented 3 in no apparent distress she is complaining of abdominal pain with any movement or cough. Otherwise she denies any complaints, yesterday she underwent surgery with Dr. Mcgrath she had Jacinto procedure with takedown of splenic flexure and drainage of abscess, white blood count is elevated at 15.3 otherwise patient denies any symptoms there is no fever or chills no headache or dizziness no chest pain no shortness of breath no cough no nausea or vomiting and no urinary symptoms On 09/13/2019 patient was seen and examined in the ICU she is alert and oriented 3 in no apparent distress she is sitting up in a chair, last night patient had episode of severe shortness of breath, chest x-ray revealed evidence of flash pulmonary edema, she was transferred to ICU she required BiPAP and IV Lasix, IV fluid Were decreased, patient is doing much better at this time, there is no fever or chills no headache or dizziness no chest pain no shortness of breath no cough no nausea or vomiting no abdominal pain no diarrhea and no urinary symptoms, colostomy bag is empty without any liquid stool management, drainage bag reveals small amount of bloody drainage. On 09/14/2019 patient was seen and examined in the ICU, she is alert and oriented 3 in no apparent distress, there is no fever or chills no headache or dizziness, no chest pain no shortness of breath no cough no nausea or vomiting, no diarrhea no burning was urination no frequency or urgency no hematuria, she has moderate abdominal pain especially with any movement, pain is well controlled with current medications. On 09/15/2019 patient was seen and examined in the ICU, she is alert and oriented 3, last night she had an episode of atrial fibrillation with rapid ventricular response, she received a bolus of Cardizem, she was evaluated by cardiology this morning and dose of beta elissa was increased, at this time she is sitting up in a chair she is asymptomatic, her heart rate is well-controlled, she is still complaining of some abdominal discomfort otherwise no complaints, there was minimal amount of blood from rectum patient's thinks it's coming from her hemorrhoids, otherwise she denies any complaints there is no fever or chills no headache or dizziness no chest pain no shortness of breath no cough no nausea or vomiting patient was started on full liquid diet TPN was discontinued. No burning was urination no frequency or urgency and no hematuria. On 09/16/2019 patient was seen and examined in the ICU, she is doing better today and there is no fever or chills no headache or dizziness no chest pain no shortness of breath no cough no nausea or vomiting no abdominal pain no diarrhea no burning was urination no frequency or urgency and no hematuria, there is liquid brown stool in the colostomy bag, no new episodes of rapid ventricular response. On 09/17/2019 Patient was seen and examined in the ICU she is alert and oriented 3 in no apparent distress there is no fever or chills no headache or dizziness no chest pain no shortness of breath no cough no nausea or vomiting tolerating diet well, there is some abdominal discomfort with movement otherwise no complaints, there is liquid stools in the colostomy bag there is serous sanguinous liquid in the drainage bag, no urinary symptoms. Objective - Vital Signs Vital signs: Vital Signs Temp 98.6 F 09/17/19 07:00 Pulse 80 09/17/19 07:00 Resp 18 09/17/19 07:00 BP 136/83 09/17/19 07:00 Pulse Ox 95 09/17/19 07:00 Intake & Output 09/16/19 09/17/19 09/17/19 18:59 06:59 18:59 Intake Total 340 255 Output Total 7288 4917 Balance -4454 -3501 Weight 75.2 kg 70.2 kg Intake: IV 40 255 0.9 KVO 40 155 Piperacillin-Tazobactam 3 100 .375 gm In Sodium Chloride 0.9% 100 ml @ 25 mls/hr IVPB Q8HR [facility] Rx# :[id number] Intake, IV Titration 300 Amount Magnesium Sulfate-D5w Pmx 200 1 gm In Dextrose/Water 1 100ml.bag @ 100 mls/hr IVPB Q1H [facility] Rx#: [id number] Piperacillin-Tazobactam 3 100 .375 gm In Sodium Chloride 0.9% 100 ml @ 25 mls/hr IVPB Q8HR [facility] Rx# :[id number] Output: Urine 1925 2800 Other: Voiding Method Indwelling Catheter Indwelling Catheter # Voids 1 - Exam In general patient is alert and oriented 3 in no apparent distress HEENT head normocephalic and atraumatic Neck is supple no JVD no goiter no lymphadenopathy Chest exam reveals a few scattered crackles no wheezing Cardiac exam reveals regular heart sounds no gallops no murmurs Abdomen is soft with tenderness in the left lower quadrant and periumbilical area no organomegaly with normal bowel sounds Extremity exam reveals no edema no cyanosis or clubbing Neurological examination reveals no gross focal deficit - Labs CBC & Chem 7: 09/16/19 04:41 09/16/19 04:41 Labs: Abnormal Lab Results - Last 24 Hours (Table) 09/16/19 09/16/19 09/17/19 Range/Units 17:42 20:52 06:42 POC Glucose (mg/dL) 135 H 158 H 108 H (75-99) mg/dL 09/17/19 Range/Units 11:25 POC Glucose (mg/dL) 148 H (75-99) mg/dL Assessment and Plan Plan: 1. Acute diverticulitis with abscess and microperforation and pneumoperitoneum, no significant improvement since admission despite antibiotic therapy, patient was evaluated today by Dr. Mcgrath underwent surgery yesterday as above. 2. Underlying history of hyperlipidemia 3. Previous history of breast cancer 4. History of valvular heart disease 5. Events from yesterday with flush pulmonary edema, requiring BiPAP, and transfer to ICU patient is doing much better at this time, possible transfer back to medical floor tomorrow 6. Atrial fibrillation heart rate is well-controlled at this time, patient had an episode of RVR last night, at this time will increase Lovenox to therapeutic dose 1 mg/kg twice daily if it's okay with surgery At this time patient is maintained on IV antibiotic Zosyn white blood count 14.6 Patient is being transferred out of ICU to the medical floor when bed is available Continue current management awaiting further recommendation from infectious disease Protonix for GI prophylaxis, subcu Lovenox for DVT prophylaxis Will follow in a.m.
--- NOTE | 2019-09-17 14:28 | PN ---
PROGRESS NOTE Mrs. Castellano is a 69-year-old female who has been having intermittent atrial fibrillation. This morning, she appears to be sinus rhythm. Patient is off anticoagulation therapy because of surgery. Patient is status post colectomy for perforated diverticulitis. The patient is sitting in a chair and appears to be in no acute distress. She is being sent to the telemetry unit. PHYSICAL EXAMINATION: The patient was alert and oriented. Blood pressure 130/60, pulse is 80, respirations 18, afebrile. Lungs appear to be clear. Heart is regular. LAB VALUES: Showed a white count of 14.6 from yesterday. Potassium is 4.2 and creatinine is 0.58. PLAN: We will continue current medical therapy and anticoagulation with Eliquis 5 mg p.o. b.i.d. to be initiated when cleared by surgery. UTE / ZORAN: [id number] /
--- NOTE | 2019-09-17 15:51 | PN ---
PROGRESS NOTE DATE OF SERVICE: 09/17/2019 REASON FOR FOLLOW UP: Ruptured diverticulitis with abscess. INTERVAL HISTORY: The patient is currently afebrile. She is breathing comfortably. Denies any chest pain. No shortness of breath or cough. Abdominal pain is currently controlled. Already had diarrhea output in her colostomy bag. PHYSICAL EXAMINATION: Blood pressure 136/83 with a pulse of 80, temperature 98.6. She is 95% on room air. General description is an elderly female lying in bed in no distress. Respiratory system: Unlabored breathing, clear to auscultation anteriorly. Heart S1, S2. Regular rate and rhythm. Abdomen soft, minimally tender to touch. LABS: No new labs have been obtained today. DIAGNOSTIC IMPRESSION AND PLAN: Patient with ruptured sigmoid diverticulitis with intraabdominal abscess, status post laparotomy and drainage of the abscess. The patient is covered with Zosyn, to continue. I will repeat CBC with diff tomorrow and monitor clinical course closely. MMODL / IJN: [id number] /
[2019-09-17 21:57] LABS: Glucose,Whole Blood 123 mg/dL (75-99)
[2019-09-17] MEDS: APIXABAN 5 MG TAB PO SCH (22:06)
[2019-09-18] MEDS: PIPERACILLIN-TAZOBACTAM 3.375 GM in SODIUM CHLORIDE 0.9% 100 ML IVPB SCH ×3 (00:53→16:40)
[2019-09-18 07:28] LABS: Glucose,Whole Blood 95 mg/dL (75-99)
[2019-09-18] MEDS: INSULIN ASPART (NovoLOG) 100 UNIT/ML VIAL SQ SCH ×4 (08:18→21:02)
[2019-09-18 08:24] LABS: Basophils # (A) 0.1 k/uL (0-0.2); Basophils % (A) 1 %; Eosinophils # (A) 0.4 k/uL (0-0.7); Eosinophils % (A) 4 %; HCT 36.2 % (34.0-46.0); HGB 11.6 gm/dL (11.4-16.0); Hypochromasia Slight; Lymphocytes # (A) 1.7 k/uL (1.0-4.8); Lymphocytes % (A) 15 %; MCH 28.4 pg (25.0-35.0); MCV 88.8 fL (80.0-100.0); Monocytes # (A) 0.6 k/uL (0-1.0); Monocytes % (A) 5 %; Neutrophils # (A) 7.9 k/uL (1.3-7.7); Neutrophils % (A) 73 %; Platelet Count 585 k/uL (150-450); RBC 4.07 m/uL (3.80-5.40); RDW 12.9 % (11.5-15.5); WBC 10.8 k/uL (3.8-10.6)
[2019-09-18] MEDS: APIXABAN 5 MG TAB PO SCH ×2 (08:29→21:02)
[2019-09-18] MEDS: METOPROLOL TARTRATE 50 MG TAB PO SCH ×2 (08:29→21:01)
[2019-09-18] MEDS: FUROSEMIDE 40 MG TAB PO SCH (08:29)
[2019-09-18] MEDS: PANTOPRAZOLE 40 MG TABLET PO SCH (08:29)
[2019-09-18 08:46] LABS: ALT 13 U/L (4-34); AST 27 U/L (14-36); African American GFR (CKD) >90 (>60 ml/min/1.73 sqM); Albumin 2.8 g/dL (3.5-5.0); Alkaline Phosphatase 111 U/L (38-126); Anion Gap 8 mmol/L; Blood Urea Nitrogen 12 mg/dL (7-17); Calcium 8.9 mg/dL (8.4-10.2); Carbon Dioxide 23 mmol/L (22-30); Chloride 104 mmol/L (98-107); Glucose 98 mg/dL (74-99); Non-African American GFR(CKD) >90 (>60 ml/min/1.73 sqM); Potassium 4.3 mmol/L (3.5-5.1); Sodium 135 mmol/L (137-145); Total Bilirubin 0.5 mg/dL (0.2-1.3); Total Protein 5.9 g/dL (6.3-8.2)
--- NOTE | 2019-09-18 11:02 | P.PN ---
Subjective Progress Note Date: 09/18/19 Principal diagnosis: Acute hypoxic respiratory failure secondary to fluid volume overload/pulmonary edema The patient is seen today 09/18/2019 in follow-up on the regular medical floor. She is currently awake and alert in no acute distress. Resting quite comfortably in bed. No shortness of breath, cough or congestion. She is maintaining O2 saturations in the mid 90s on room air. She's been afebrile. Hemodynamically stable. Blood cultures reveal no growth. White count 10.8. Hemoglobin 11.6. Sodium 135. Potassium 4.3. Creatinine 0.51. Currently on Zosyn. Remains on oral diuretics. Objective - Vital Signs Vital signs: Vital Signs Temp 98.4 F 09/18/19 07:00 Pulse 85 09/18/19 07:00 Resp 18 09/18/19 07:00 BP 127/84 09/18/19 07:00 Pulse Ox 97 09/18/19 07:00 Intake & Output 09/17/19 09/18/19 09/18/19 18:59 06:59 18:59 Intake Total 420 20 Output Total 400 1100 300 Balance 20 -1080 -300 Weight 68.17 kg Intake: IV 180 0.9 KVO 80 Piperacillin-Tazobactam 3 100 .375 gm In Sodium Chloride 0.9% 100 ml @ 25 mls/hr IVPB Q8HR [facility] Rx# :[id number] Oral 240 20 Output: Urine 300 1100 300 Uretheral (Martinez) 200 Stool 100 Other: Voiding Method Indwelling Catheter Indwelling Catheter # Voids 1 1 - Exam GENERAL EXAM: Alert, very pleasant, 69-year-old female, on room air oxygen, in no acute distress comfortable in no apparent distress. HEAD: Normocephalic/atraumatic. EYES: Normal reaction of pupils, equal size. Conjunctiva pink, sclera white. NOSE: Clear with pink turbinates. THROAT: No erythema or exudates. NECK: No masses, no JVD, no thyroid enlargement, no adenopathy. CHEST: No chest wall deformity. Symmetrical expansion. , Minimal crackles at lung bases bilaterally LUNGS: Equal air entry with no crackles, wheeze, rhonchi or dullness. CVS: Regular rate and rhythm, normal S1 and S2, no gallops, no murmurs, no rubs ABDOMEN: Soft, nontender. No hepatosplenomegaly, normal bowel sounds, no guarding or rigidity. Abdominal incision is clean dry and intact, covered with surgical dressing, colostomy without output or gas, KATARINA drain with serosanguineous output. The colostomy is viable and there is some functionality with some limited amount of stool formation in the colostomy bag. There is hypoactive yet present bowel sounds. EXTREMITIES: No clubbing, no edema, no cyanosis, 2+ pulses and upper and lower extremities. MUSCULOSKELETAL: Muscle strength and tone normal. SPINE: No scoliosis or deformity SKIN: No rashes CENTRAL NERVOUS SYSTEM: No focal deficits, tone is normal in all 4 extremities. PSYCHIATRIC: Alert and oriented -3. Appropriate affect. Intact judgment and insight. - Labs CBC & Chem 7: 09/18/19 07:37 09/18/19 07:37 Labs: Abnormal Lab Results - Last 24 Hours (Table) 09/17/19 09/17/19 09/18/19 Range/Units 11:25 21:55 07:37 WBC 10.8 H (3.8-10.6) k/uL Plt Count 585 H (150-450) k/uL Neutrophils # 7.9 H (1.3-7.7) k/uL Sodium (137-145) mmol/L Creatinine (0.52-1.04) mg/dL POC Glucose (mg/dL) 148 H 123 H (75-99) mg/dL Total Protein (6.3-8.2) g/dL Albumin (3.5-5.0) g/dL 09/18/19 Range/Units 07:37 WBC (3.8-10.6) k/uL Plt Count (150-450) k/uL Neutrophils # (1.3-7.7) k/uL Sodium 135 L (137-145) mmol/L Creatinine 0.51 L (0.52-1.04) mg/dL POC Glucose (mg/dL) (75-99) mg/dL Total Protein 5.9 L (6.3-8.2) g/dL Albumin 2.8 L (3.5-5.0) g/dL Assessment and Plan Assessment: #1. Acute hypoxic respiratory failure related to loud overload, pulmonary edema, possibility of CHF exacerbation with previously documented preserved LV function, and the patient improved with diuresis. IV fluids at KVO. The patient is currently on room air oxygen. Acute pulmonary edema is much recovered. She has been diuresed aggressively. A repeat echocardiogram shows no valvular abnormalities. LV within normal limits. #2. Acute perforated diverticulitis with pelvic abscess and interloop abscess, status post Gomez's procedure, takedown of splenic flexure, and drainage of i nterloop abscess and colostomy creation, postoperative day 4, and on today's evaluation the colostomy site is viable and is showing some functionality. #3. Hyperlipidemia #4. History of left breast cancer in 2002, status post lumpectomy and chemoradiation #5. History of nicotine dependence, currently in remission #6 leukocytosis, improving Plan The patient was seen and evaluated by Dr. Ga Currently stable from the pulmonary critical care standpoint Currently on Zosyn Currently on oral diuretics Repeat chest x-ray in the a.m. We'll continue to follow I, the cosigning physician, performed a history & physical examination of the patient. Lungs sounds with minimal crackles in the posterior bases. Maintaining good O2 saturations in the 90s on room air. I discussed the assessment and plan of care with my nurse practitioner, Lindsey Rush. I attest to the above note as dictated by her.
[2019-09-18 12:18] LABS: Glucose,Whole Blood 126 mg/dL (75-99)
--- NOTE | 2019-09-18 12:45 | P.PN ---
Subjective Progress Note Date: 09/18/19 CHIEF COMPLAINT: Perforated diverticulitis HISTORY OF PRESENT ILLNESS: The patient is a 69-year-old female status post colectomy ostomy creation for perforated diverticulitis, 09/11/2019. She is pos top day 7. She is tolerating full liquid diet. No fevers. No abdominal pain. She is eager to advance her diet. ROS: No reports of nausea and vomiting. Having bowel movements through ostomy. No fevers or chills. No new chest pain. No productive sputum. PHYSICAL EXAM: VITAL SIGNS: Reviewed CONSTITUTIONAL: Well developed and in no acute distress. EYES: Conjuctivae without sclera icterus. Extraocular movements grossly intact. HEAD, EARS, NOSE, THROAT: Moist buccal mucosa. Head is atraumatic, normocephalic. Hears conversational speech. No nasal drainage. NECK: Supple. No thyroidomegaly. RESPIRATORY: Non-labored respirations and equal bilateral excursions. CARDIOVASCULAR: Palpable 2+ radial pulses. Irregular rate ABDOMEN: Soft. No peritonitis. Ostomy pink and patent. Incision and dressing intact. KATARINA is serous sanguinous. MUSCULOSKELETAL: No gross deformity of the lower extremities noted. No clubbing. No cyanosis. SKIN: Good skin turgor. Well perfused. NEUROLOGIC: Cranial nerves II through XII grossly intact. No focal or lateralizing signs. PSYCH: Appropriate affect. Alert and oriented to person, place and time. CLINICAL LABS: WBC is 14,800 down to 10,800 ASSESSMENT: 1. Perforated diverticulitis PLAN: 1. Advance diet 2. May start blood thinners for atrial fibrillation Objective - Vital Signs Vital signs: Vital Signs Temp 98.4 F 09/18/19 07:00 Pulse 85 09/18/19 07:00 Resp 18 09/18/19 07:00 BP 127/84 09/18/19 07:00 Pulse Ox 97 09/18/19 07:00 Intake & Output 09/17/19 09/18/19 09/18/19 18:59 06:59 18:59 Intake Total 420 20 Output Total 400 1100 300 Balance 20 1080 -300 Weight 68.17 kg Intake: IV 180 0.9 KVO 80 Piperacillin-Tazobactam 3 100 .375 gm In Sodium Chloride 0.9% 100 ml @ 25 mls/hr IVPB Q8HR [facility] Rx# :[id number] Oral 240 20 Output: Urine 300 1100 300 Uretheral (Martinez) 200 Stool 100 Other: Voiding Method Indwelling Catheter Indwelling Catheter # Voids 1 1 - Labs CBC & Chem 7: 09/18/19 07:37 09/18/19 07:37 Labs: Abnormal Lab Results - Last 24 Hours (Table) 09/17/19 09/18/19 09/18/19 Range/Units 21:55 07:37 07:37 WBC 10.8 H (3.8-10.6) k/uL Plt Count 585 H (150-450) k/uL Neutrophils # 7.9 H (1.3-7.7) k/uL Sodium 135 L (137-145) mmol/L Creatinine 0.51 L (0.52-1.04) mg/dL POC Glucose (mg/dL) 123 H (75-99) mg/dL Total Protein 5.9 L (6.3-8.2) g/dL Albumin 2.8 L (3.5-5.0) g/dL 09/18/19 Range/Units 12:17 WBC (3.8-10.6) k/uL Plt Count (150-450) k/uL Neutrophils # (1.3-7.7) k/uL Sodium (137-145) mmol/L Creatinine (0.52-1.04) mg/dL POC Glucose (mg/dL) 126 H (75-99) mg/dL Total Protein (6.3-8.2) g/dL Albumin (3.5-5.0) g/dL Assessment and Plan (1) Perforation of sigmoid colon due to diverticulitis Current Visit: Yes Status: Acute Code(s): K57.20 - DVTRCLI OF LG INT W PERFORATION AND ABSCESS W/O BLEEDING SNOMED Code(s): 0155724793964877 (2) Atrial fibrillation Current Visit: Yes Status: Acute Code(s): I48.91 - UNSPECIFIED ATRIAL FIBRILLATION SNOMED Code(s): 69347896 (3) Sepsis Current Visit: Yes Status: Acute Code(s): A41.9 - SEPSIS, UNSPECIFIED ORGANISM SNOMED Code(s): 42994408
--- NOTE | 2019-09-18 13:00 | P.PN ---
Subjective Progress Note Date: 09/18/19 Courtney Castellano is a 69-year-old female well known to my practice who presented to [facility] emergency room with a chief complaint of abdominal pain that started 3 days prior to admission and has been worsening. Patient describes pain mostly in the left lower quadrant she had episodes of nausea and vomiting she also had diarrhea. She denies any blood in the stools, she had one episode of low-grade fever otherwise no fever or chills no headache or dizziness no chest pain no shortness of breath no cough no burning with urination no frequency or urgency and no hematuria. Patient was evaluated in the emergency room, she had a computed tomography scan of the abdomen and pelvis as outpatient that revealed evidence of acute diverticulitis with pericolonic abscess and pneumoperitoneum in the pelvis and along the diaphragmatic border. She was admitted to the hospital and was started on IV antibiotics. Patient states that she had 1 previous episode of acute diverticulitis while she was in [place] she was treated with antibiotic and improved. She denies any previous surgery on her Colon. She has a known previous history of cholecystectomy, her past medical history also significant for history of breast cancer, history of hypertension, history of hyperlipidemia, and history of valvular heart disease. On 09/07/2019 patient was seen and examined on the medical floor she is alert and oriented 3 in no apparent distress she is still complaining of abdominal pain mostly in the left lower quadrant otherwise she denies any complaints there is no fever or chills no headache or dizziness no chest pain no shortness of breath no cough no nausea or vomiting no diarrhea and no urinary symptoms. On 09/08/2019 patient was seen and examined on the medical floor she is alert and oriented 3 in no apparent distress she is still complaining of mild discomfort in the lower abdominal area otherwise she denies any complaints there is no fever or chills no headache or dizziness no chest pain no shortness of breath no cough no nausea or vomiting there is some diarrhea but no mucus or blood in the stools there is no urinary symptoms. On 09/09/2019 patient was seen and examined on the medical floor she is still complaining of abdominal discomfort white blood count is still elevated at 12.2 patient had 1 episode of dizziness and presyncope while walking in her room, otherwise patient denies any complaints there is no fever or chills no headache no chest pain or shortness of breath no cough no nausea or vomiting, no blood in the stools no burning was urination no frequency or urgency and no hematuria. On 09/10/2019 Patient was seen and examined on the medical floor, she is alert and oriented in no distress, she is still complaining of abdominal pain, there is no fever or chills, no headache or dizziness no chest pain no shortness of breath no cough no nausea or vomiting no diarrhea and no urinary symptoms. On 09/11/2019 Patient was seen and examined on the medical floor, she is alert and oriented in no distress, she is still complaining of abdominal pain, white blood count is up to 12.9 despite antibiotic therapy. Potassium is low patient is receiving potassium replacement protocol. She was evaluated by Dr. Mcgrath and he is planning to proceed with surgery today. On 09/12/2019 patient was seen and examined on the medical floor she is alert and oriented 3 in no apparent distress she is complaining of abdominal pain with any movement or cough. Otherwise she denies any complaints, yesterday she underwent surgery with Dr. Mcgrath she had Jacinto procedure with takedown of splenic flexure and drainage of abscess, white blood count is elevated at 15.3 otherwise patient denies any symptoms there is no fever or chills no headache or dizziness no chest pain no shortness of breath no cough no nausea or vomiting and no urinary symptoms On 09/13/2019 patient was seen and examined in the ICU she is alert and oriented 3 in no apparent distress she is sitting up in a chair, last night patient had episode of severe shortness of breath, chest x-ray revealed evidence of flash pulmonary edema, she was transferred to ICU she required BiPAP and IV Lasix, IV fluid Were decreased, patient is doing much better at this time, there is no fever or chills no headache or dizziness no chest pain no shortness of breath no cough no nausea or vomiting no abdominal pain no diarrhea and no urinary symptoms, colostomy bag is empty without any liquid stool management, drainage bag reveals small amount of bloody drainage. On 09/14/2019 patient was seen and examined in the ICU, she is alert and oriented 3 in no apparent distress, there is no fever or chills no headache or dizziness, no chest pain no shortness of breath no cough no nausea or vomiting, no diarrhea no burning was urination no frequency or urgency no hematuria, she has moderate abdominal pain especially with any movement, pain is well controlled with current medications. On 09/15/2019 patient was seen and examined in the ICU, she is alert and oriented 3, last night she had an episode of atrial fibrillation with rapid ventricular response, she received a bolus of Cardizem, she was evaluated by cardiology this morning and dose of beta elissa was increased, at this time she is sitting up in a chair she is asymptomatic, her heart rate is well-controlled, she is still complaining of some abdominal discomfort otherwise no complaints, there was minimal amount of blood from rectum patient's thinks it's coming from her hemorrhoids, otherwise she denies any complaints there is no fever or chills no headache or dizziness no chest pain no shortness of breath no cough no nausea or vomiting patient was started on full liquid diet TPN was discontinued. No burning was urination no frequency or urgency and no hematuria. On 09/16/2019 patient was seen and examined in the ICU, she is doing better today and there is no fever or chills no headache or dizziness no chest pain no shortness of breath no cough no nausea or vomiting no abdominal pain no diarrhea no burning was urination no frequency or urgency and no hematuria, there is liquid brown stool in the colostomy bag, no new episodes of rapid ventricular response. On 09/17/2019 Patient was seen and examined in the ICU she is alert and oriented 3 in no apparent distress there is no fever or chills no headache or dizziness no chest pain no shortness of breath no cough no nausea or vomiting tolerating diet well, there is some abdominal discomfort with movement otherwise no complaints, there is liquid stools in the colostomy bag there is serous sanguinous liquid in the drainage bag, no urinary symptoms. On 09/18/2019 patient was seen and examined on the medical floor she is alert and oriented 3 in no apparent distress she is sitting up in a chair there is no fever or chills no headache or dizziness no chest pain no shortness of breath no cough no nausea or vomiting no abdominal pain no diarrhea and no urinary sympt oms Objective - Vital Signs Vital signs: Vital Signs Temp 98.4 F 09/18/19 07:00 Pulse 85 09/18/19 07:00 Resp 18 09/18/19 07:00 BP 127/84 09/18/19 07:00 Pulse Ox 97 09/18/19 07:00 Intake & Output 09/17/19 09/18/19 09/18/19 18:59 06:59 18:59 Intake Total 420 20 Output Total 400 1100 300 Balance 20 -1080 -300 Weight 68.17 kg Intake: IV 180 0.9 KVO 80 Piperacillin-Tazobactam 3 100 .375 gm In Sodium Chloride 0.9% 100 ml @ 25 mls/hr IVPB Q8HR [facility] Rx# :[id number] Oral 240 20 Output: Urine 300 1100 300 Uretheral (Martinez) 200 Stool 100 Other: Voiding Method Indwelling Catheter Indwelling Catheter # Voids 1 1 - Exam In general patient is alert and oriented 3 in no apparent distress HEENT head normocephalic and atraumatic Neck is supple no JVD no goiter no lymphadenopathy Chest exam reveals a few scattered crackles no wheezing Cardiac exam reveals regular heart sounds no gallops no murmurs Abdomen is soft with tenderness in the left lower quadrant and periumbilical area no organomegaly with normal bowel sounds Extremity exam reveals no edema no cyanosis or clubbing Neurological examination reveals no gross focal deficit - Labs CBC & Chem 7: 09/18/19 07:37 09/18/19 07:37 Labs: Abnormal Lab Results - Last 24 Hours (Table) 09/17/19 09/18/19 09/18/19 Range/Units 21:55 07:37 07:37 WBC 10.8 H (3.8-10.6) k/uL Plt Count 585 H (150-450) k/uL Neutrophils # 7.9 H (1.3-7.7) k/uL Sodium 135 L (137-145) mmol/L Creatinine 0.51 L (0.52-1.04) mg/dL POC Glucose (mg/dL) 123 H (75-99) mg/dL Total Protein 5.9 L (6.3-8.2) g/dL Albumin 2.8 L (3.5-5.0) g/dL 09/18/19 Range/Units 12:17 WBC (3.8-10.6) k/uL Plt Count (150-450) k/uL Neutrophils # (1.3-7.7) k/uL Sodium (137-145) mmol/L Creatinine (0.52-1.04) mg/dL POC Glucose (mg/dL) 126 H (75-99) mg/dL Total Protein (6.3-8.2) g/dL Albumin (3.5-5.0) g/dL Assessment and Plan Plan: 1. Acute diverticulitis with abscess and microperforation and pneumoperitoneum, no significant improvement since admission despite antibiotic therapy, patient was evaluated today by Dr. Mcgrath underwent surgery yesterday as above. 2. Underlying history of hyperlipidemia 3. Previous history of breast cancer 4. History of valvular heart disease 5. Events from yesterday with flush pulmonary edema, requiring BiPAP, and transfer to ICU patient is doing much better at this time, possible transfer back to medical floor tomorrow 6. Atrial fibrillation heart rate is well-controlled at this time, patient had an episode of RVR last night, at this time will increase Lovenox to therapeutic dose 1 mg/kg twice daily if it's okay with surgery At this time patient is maintained on IV antibiotic Zosyn white blood count 10 Patient is being transferred out of ICU to the medical floor when bed is available Continue current management awaiting further recommendation from infectious disease Protonix for GI prophylaxis, subcu Lovenox for DVT prophylaxis Patient is improving gradually possible discharge to home in the next 1-2 days Will follow in a.m.
[2019-09-18 17:17] LABS: Glucose,Whole Blood 149 mg/dL (75-99)
[2019-09-18 20:50] LABS: Glucose,Whole Blood 151 mg/dL (75-99)
[2019-09-19] MEDS: PIPERACILLIN-TAZOBACTAM 3.375 GM in SODIUM CHLORIDE 0.9% 100 ML IVPB SCH ×2 (00:26→08:20)
--- NOTE | 2019-09-19 03:09 | PN ---
PROGRESS NOTE DATE OF SERVICE: 09/18/2019 REASON FOR FOLLOWUP: Perforated diverticulitis abscess. INTERVAL HISTORY: The patient is currently afebrile. The patient is breathing comfortably on room air. The patient denies having any chest pain or shortness of breath or cough. No abdominal pain or any diarrhea. PHYSICAL EXAMINATION: Blood pressure 108/71 with a pulse of 92, temperature 98.5. She is 96% on room air. General description is an elderly female lying in bed in no distress. RESPIRATORY SYSTEM: Unlabored breathing, clear to auscultation anteriorly. HEART: S1, S2. Regular rate and rhythm. ABDOMEN: Soft, no tenderness. LABS: Hemoglobin 11.6, white count 10.8, BUN of 12, creatinine 0.51. DIAGNOSTIC IMPRESSION AND PLAN: Patient with ruptured diverticulitis with abdominal abscess, status post laparotomy. The patient seemed to have shown overall clinical improvement. She will continue Zosyn. She already has a Midline to continue with IV Invanz in the outpatient setting for short course and monitor clinical course closely. MMODL / IJN: [id number] /
[2019-09-19 06:56] LABS: Glucose,Whole Blood 104 mg/dL (75-99)
[2019-09-19 07:49] VITALS: RESP 18
[2019-09-19] MEDS: INSULIN ASPART (NovoLOG) 100 UNIT/ML VIAL SQ SCH ×4 (08:07→20:47)
--- NOTE | 2019-09-19 08:15 | XR ---
EXAMINATION TYPE: XR chest 1V portable DATE OF EXAM: 09/19/2019 HISTORY: Shortness of breath. COMPARISON: 09/16/2019 TECHNIQUE: Single view of the chest is submitted. FINDINGS: Demonstrated are scattered senescent parenchymal change. There is no evidence for focal infiltrate. The heart is stable. Hilar and mediastinal structures are within normal limits. Degenerative changes are seen of the dorsal spine. IMPRESSION: 1. Chronic changes without evidence for acute pulmonary disease.
[2019-09-19 08:16] LABS: Basophils # (A) 0.1 k/uL (0-0.2); Basophils % (A) 1 %; Eosinophils # (A) 0.5 k/uL (0-0.7); Eosinophils % (A) 4 %; HCT 36.5 % (34.0-46.0); HGB 11.3 gm/dL (11.4-16.0); Lymphocytes # (A) 1.8 k/uL (1.0-4.8); Lymphocytes % (A) 15 %; MCH 26.9 pg (25.0-35.0); MCHC 30.9 g/dL (31.0-37.0); MCV 86.9 fL (80.0-100.0); Monocytes # (A) 0.7 k/uL (0-1.0); Monocytes % (A) 5 %; Neutrophils # (A) 9.1 k/uL (1.3-7.7); Neutrophils % (A) 74 %; Platelet Count 598 k/uL (150-450); RBC 4.19 m/uL (3.80-5.40); RDW 13.2 % (11.5-15.5); WBC 12.2 k/uL (3.8-10.6)
[2019-09-19] MEDS: APIXABAN 5 MG TAB PO SCH ×2 (08:21→20:47)
[2019-09-19] MEDS: FUROSEMIDE 40 MG TAB PO SCH (08:21)
[2019-09-19] MEDS: METOPROLOL TARTRATE 50 MG TAB PO SCH ×2 (08:21→20:47)
[2019-09-19] MEDS: PANTOPRAZOLE 40 MG TABLET PO SCH (08:21)
[2019-09-19 11:25] LABS: Glucose,Whole Blood 143 mg/dL (75-99)
--- NOTE | 2019-09-19 11:48 | P.PN ---
Subjective Progress Note Date: 09/19/19 CHIEF COMPLAINT: abdominal pain HISTORY OF PRESENT ILLNESS: Patient is status post Jacinto procedure, takedown of splenic flexure, drainage of interloop abscess, and colostomy creation with Dr. Mcgrath. Patient examined at the bedside. Patient denies abdominal pain. She is tolerating regular diet. Ostomy with stool noted. Patient with low- grade temperature this morning. WBC increased to 12.2. PHYSICAL EXAM: VITAL SIGNS: Reviewed. GENERAL: Well-developed in no acute distress. HEENT: No sclera icterus. Extraocular movements grossly intact. Moist buccal mucosa. Head is atraumatic, normocephalic. ABDOMEN: Soft. Nondistended. Dressing CDI. Ostomy with gas and stool noted. KATARINA drain with serosanguineous drainage NEUROLOGIC: Alert and oriented. Cranial nerves II through XII grossly intact. ASSESSMENT: 1. Perforated diverticulitis with pelvic abscess and interloop abscess 2. Hiatal hernia PLAN: -Continue antibiotics -Continue diet as tolerated -Activity as tolerated -Incentive spirometer -Possible discharge home tomorrow if patient is afebrile and a WBC trends downward Nurse practitioner note has been reviewed by physician. Signing provider agrees with the documented findings, assessment, and plan of care. Objective - Vital Signs Vital signs: Vital Signs Temp 99.4 F 09/19/19 07:00 Pulse 81 09/19/19 08:05 Resp 18 09/19/19 07:00 BP 132/82 09/19/19 07:00 Pulse Ox 95 09/19/19 07:00 Intake & Output 09/18/19 09/19/19 09/19/19 18:59 06:59 18:59 Intake Total 680 Output Total 300 200 Balance -300 480 Weight 71 kg Intake: IV 200 Piperacillin-Tazobactam 3 200 .375 gm In Sodium Chloride 0.9% 100 ml @ 25 mls/hr IVPB Q8HR [facility] Rx# :[id number] Oral 480 Output: Urine 300 Stool 200 Other: # Voids 3 2 - Labs CBC & Chem 7: 09/19/19 07:05 09/18/19 07:37 Labs: Abnormal Lab Results - Last 24 Hours (Table) 09/18/19 09/18/19 09/18/19 Range/Units 12:17 17:15 20:49 WBC (3.8-10.6) k/uL Hgb (11.4-16.0) gm/dL MCHC (31.0-37.0) g/dL Plt Count (150-450) k/uL Neutrophils # (1.3-7.7) k/uL POC Glucose (mg/dL) 126 H 149 H 151 H (75-99) mg/dL C-Reactive Protein (<10.0) mg/L 09/19/19 09/19/19 09/19/19 Range/Units 06:55 07:05 07:05 WBC 12.2 H (3.8-10.6) k/uL Hgb 11.3 L (11.4-16.0) gm/dL MCHC 30.9 L (31.0-37.0) g/dL Plt Count 598 H (150-450) k/uL Neutrophils # 9.1 H (1.3-7.7) k/uL POC Glucose (mg/dL) 104 H (75-99) mg/dL C-Reactive Protein 21.0 H (<10.0) mg/L 09/19/19 Range/Units 11:24 WBC (3.8-10.6) k/uL Hgb (11.4-16.0) gm/dL MCHC (31.0-37.0) g/dL Plt Count (150-450) k/uL Neutrophils # (1.3-7.7) k/uL POC Glucose (mg/dL) 143 H (75-99) mg/dL C-Reactive Protein (<10.0) mg/L
--- NOTE | 2019-09-19 12:28 | P.PN ---
Subjective This is a pleasant 69-year-old female past medical history significant for breast cancer and former nicotine dependence. She is s/p perforated diverticulitis with abscess and colostomy creation. She developed atrial fibrillation post operatively and has been initiated on terminal supervisor anti- coagulation. She is seen and examined laying flat resting comfortably in bed in no acute distress. She has been consistently maintaining sinus mechanism. She denies chest pain, shortness of breath, dizziness or palpitations. Blood pressure 132/82 heart rate 81 afebrile and maintaining oxygen saturation on room air. Laboratory data reviewed, WBC 12.2, hemoglobin 11.3, platelets 598 and CRP 21. Currently maintained on Eliquis 5 mg twice a day, Lasix 40 mg daily and Lopressor 50 mg twice a day. GENERAL: Well-appearing, well-nourished and in no acute distress. NECK: Supple without JVD or thyromegaly. LUNGS: Breath sounds clear to auscultation bilaterally. Respiration equal and unlabored. No wheezes, rales or rhonchi. HEART: Regular rate and rhythm without murmurs, rubs or gallops. S1 and S2 heard. EXTREMITIES: Normal range of motion, no edema. No clubbing or cyanosis. Peripheral pulses intact. ASSESSMENT Paroxysmal atrial fibrillation, currently maintaining sinus mechanism Perforated diverticulitis s/p colostomy creation PLAN Continue current medical regimen with beta blockers and nursing home anti- coagulation. We will continue to follow as needed, please call for further questions or concerns. Follow up with Dr. Fuller upon discharge. Nurse Practitioner note has been reviewed, I agree with a documented findings and plan of care. Patient was seen and examined. Objective - Vital Signs Vital signs: Vital Signs Temp 99.4 F 09/19/19 07:00 Pulse 81 09/19/19 08:05 Resp 18 09/19/19 07:00 BP 132/82 09/19/19 07:00 Pulse Ox 95 09/19/19 07:00 Intake & Output 09/18/19 09/19/19 09/19/19 18:59 06:59 18:59 Intake Total 680 Output Total 300 200 Balance -300 480 Weight 71 kg Intake: IV 200 Piperacillin-Tazobactam 3 200 .375 gm In Sodium Chloride 0.9% 100 ml @ 25 mls/hr IVPB Q8HR [facility] Rx# :[id number] Oral 480 Output: Urine 300 Stool 200 Other: # Voids 3 2 - Labs CBC & Chem 7: 09/19/19 07:05 09/18/19 07:37 Labs: Abnormal Lab Results - Last 24 Hours (Table) 09/18/19 09/18/19 09/18/19 Range/Units 12:17 17:15 20:49 WBC (3.8-10.6) k/uL Hgb (11.4-16.0) gm/dL MCHC (31.0-37.0) g/dL Plt Count (150-450) k/uL Neutrophils # (1.3-7.7) k/uL POC Glucose (mg/dL) 126 H 149 H 151 H (75-99) mg/dL 09/19/19 09/19/19 Range/Units 06:55 07:05 WBC 12.2 H (3.8-10.6) k/uL Hgb 11.3 L (11.4-16.0) gm/dL MCHC 30.9 L (31.0-37.0) g/dL Plt Count 598 H (150-450) k/uL Neutrophils # 9.1 H (1.3-7.7) k/uL POC Glucose (mg/dL) 104 H (75-99) mg/dL
[2019-09-19 12:59] VITALS: BMI 24.5
[2019-09-19 16:40] LABS: Glucose,Whole Blood 160 mg/dL (75-99)
--- NOTE | 2019-09-19 17:41 | P.PN ---
Subjective Progress Note Date: 09/19/19 Courtney Castellano is a 69-year-old female well known to my practice who presented to [facility] emergency room with a chief complaint of abdominal pain that started 3 days prior to admission and has been worsening. Patient describes pain mostly in the left lower quadrant she had episodes of nausea and vomiting she also had diarrhea. She denies any blood in the stools, she had one episode of low-grade fever otherwise no fever or chills no headache or dizziness no chest pain no shortness of breath no cough no burning with urination no frequency or urgency and no hematuria. Patient was evaluated in the emergency room, she had a computed tomography scan of the abdomen and pelvis as outpatient that revealed evidence of acute diverticulitis with pericolonic abscess and pneumoperitoneum in the pelvis and along the diaphragmatic border. She was admitted to the hospital and was started on IV antibiotics. Patient states that she had 1 previous episode of acute diverticulitis while she was in [place] she was treated with antibiotic and improved. She denies any previous surgery on her Colon. She has a known previous history of cholecystectomy, her past medical history also significant for history of breast cancer, history of hypertension, history of hyperlipidemia, and history of valvular heart disease. On 09/07/2019 patient was seen and examined on the medical floor she is alert and oriented 3 in no apparent distress she is still complaining of abdominal pain mostly in the left lower quadrant otherwise she denies any complaints there is no fever or chills no headache or dizziness no chest pain no shortness of breath no cough no nausea or vomiting no diarrhea and no urinary symptoms. On 09/08/2019 patient was seen and examined on the medical floor she is alert and oriented 3 in no apparent distress she is still complaining of mild discomfort in the lower abdominal area otherwise she denies any complaints there is no fever or chills no headache or dizziness no chest pain no shortness of breath no cough no nausea or vomiting there is some diarrhea but no mucus or blood in the stools there is no urinary symptoms. On 09/09/2019 patient was seen and examined on the medical floor she is still complaining of abdominal discomfort white blood count is still elevated at 12.2 patient had 1 episode of dizziness and presyncope while walking in her room, otherwise patient denies any complaints there is no fever or chills no headache no chest pain or shortness of breath no cough no nausea or vomiting, no blood in the stools no burning was urination no frequency or urgency and no hematuria. On 09/10/2019 Patient was seen and examined on the medical floor, she is alert and oriented in no distress, she is still complaining of abdominal pain, there is no fever or chills, no headache or dizziness no chest pain no shortness of breath no cough no nausea or vomiting no diarrhea and no urinary symptoms. On 09/11/2019 Patient was seen and examined on the medical floor, she is alert and oriented in no distress, she is still complaining of abdominal pain, white blood count is up to 12.9 despite antibiotic therapy. Potassium is low patient is receiving potassium replacement protocol. She was evaluated by Dr. Mcgrath and he is planning to proceed with surgery today. On 09/12/2019 patient was seen and examined on the medical floor she is alert and oriented 3 in no apparent distress she is complaining of abdominal pain with any movement or cough. Otherwise she denies any complaints, yesterday she underwent surgery with Dr. Mcgrath she had Jacnito procedure with takedown of splenic flexure and drainage of abscess, white blood count is elevated at 15.3 otherwise patient denies any symptoms there is no fever or chills no headache or dizziness no chest pain no shortness of breath no cough no nausea or vomiting and no urinary symptoms On 09/13/2019 patient was seen and examined in the ICU she is alert and oriented 3 in no apparent distress she is sitting up in a chair, last night patient had episode of severe shortness of breath, chest x-ray revealed evidence of flash pulmonary edema, she was transferred to ICU she required BiPAP and IV Lasix, IV fluid Were decreased, patient is doing much better at this time, there is no fever or chills no headache or dizziness no chest pain no shortness of breath no cough no nausea or vomiting no abdominal pain no diarrhea and no urinary symptoms, colostomy bag is empty without any liquid stool management, drainage bag reveals small amount of bloody drainage. On 09/14/2019 patient was seen and examined in the ICU, she is alert and oriented 3 in no apparent distress, there is no fever or chills no headache or dizziness, no chest pain no shortness of breath no cough no nausea or vomiting, no diarrhea no burning was urination no frequency or urgency no hematuria, she has moderate abdominal pain especially with any movement, pain is well controlled with current medications. On 09/15/2019 patient was seen and examined in the ICU, she is alert and oriented 3, last night she had an episode of atrial fibrillation with rapid ventricular response, she received a bolus of Cardizem, she was evaluated by cardiology this morning and dose of beta elissa was increased, at this time she is sitting up in a chair she is asymptomatic, her heart rate is well-controlled, she is still complaining of some abdominal discomfort otherwise no complaints, there was minimal amount of blood from rectum patient's thinks it's coming from her hemorrhoids, otherwise she denies any complaints there is no fever or chills no headache or dizziness no chest pain no shortness of breath no cough no nausea or vomiting patient was started on full liquid diet TPN was discontinued. No burning was urination no frequency or urgency and no hematuria. On 09/16/2019 patient was seen and examined in the ICU, she is doing better today and there is no fever or chills no headache or dizziness no chest pain no shortness of breath no cough no nausea or vomiting no abdominal pain no diarrhea no burning was urination no frequency or urgency and no hematuria, there is liquid brown stool in the colostomy bag, no new episodes of rapid ventricular response. On 09/17/2019 Patient was seen and examined in the ICU she is alert and oriented 3 in no apparent distress there is no fever or chills no headache or dizziness no chest pain no shortness of breath no cough no nausea or vomiting tolerating diet well, there is some abdominal discomfort with movement otherwise no complaints, there is liquid stools in the colostomy bag there is serous sanguinous liquid in the drainage bag, no urinary symptoms. On 09/18/2019 patient was seen and examined on the medical floor she is alert and oriented 3 in no apparent distress she is sitting up in a chair there is no fever or chills no headache or dizziness no chest pain no shortness of breath no cough no nausea or vomiting no abdominal pain no diarrhea and no urinary sympt oms. On 09/19/2019 patient was seen and examined on the medical floor, she is alert and oriented 3 in no distress, she has a low-grade fever of 99.6, there is no chills no headache or dizziness no chest pain no shortness of breath no cough no nausea or vomiting no abdominal pain there is liquid stool in the colostomy bag, no burning was urination no frequency or urgency and no hematuria, white blood count slightly up today Objective - Vital Signs Vital signs: Vital Signs Temp 99.7 F H 09/19/19 15:00 Pulse 78 09/19/19 16:00 Resp 18 09/19/19 16:00 BP 132/82 09/19/19 07:00 Pulse Ox 98 09/19/19 15:00 Intake & Output 09/18/19 09/19/19 09/19/19 18:59 06:59 18:59 Intake Total 680 260 Output Total 300 200 705 Balance -300 480 -445 Weight 71 kg 71 kg Intake: IV 200 260 0.9 KVO 160 Piperacillin-Tazobactam 3 200 100 .375 gm In Sodium Chloride 0.9% 100 ml @ 25 mls/hr IVPB Q8HR [facility] Rx# :[id number] Oral 480 Output: Drainage 5 Abdomen 5 Urine 300 300 Stool 200 400 Other: Voiding Method Indwelling Catheter # Voids 3 2 1 - Exam In general patient is alert and oriented 3 in no apparent distress HEENT head normocephalic and atraumatic Neck is supple no JVD no goiter no lymphadenopathy Chest exam reveals a few scattered crackles no wheezing Cardiac exam reveals regular heart sounds no gallops no murmurs Abdomen is soft with tenderness in the left lower quadrant and periumbilical area no organomegaly with normal bowel sounds Extremity exam reveals no edema no cyanosis or clubbing Neurological examination reveals no gross focal deficit - Labs CBC & Chem 7: 09/19/19 07:05 09/18/19 07:37 Labs: Abnormal Lab Results - Last 24 Hours (Table) 09/18/19 09/19/19 09/19/19 Range/Units 20:49 06:55 07:05 WBC 12.2 H (3.8-10.6) k/uL Hgb 11.3 L (11.4-16.0) gm/dL MCHC 30.9 L (31.0-37.0) g/dL Plt Count 598 H (150-450) k/uL Neutrophils # 9.1 H (1.3-7.7) k/uL POC Glucose (mg/dL) 151 H 104 H (75-99) mg/dL C-Reactive Protein (<10.0) mg/L 09/19/19 09/19/19 09/19/19 Range/Units 07:05 11:24 16:39 WBC (3.8-10.6) k/uL Hgb (11.4-16.0) gm/dL MCHC (31.0-37.0) g/dL Plt Count (150-450) k/uL Neutrophils # (1.3-7.7) k/uL POC Glucose (mg/dL) 143 H 160 H (75-99) mg/dL C-Reactive Protein 21.0 H (<10.0) mg/L Assessment and Plan Plan: 1. Acute diverticulitis with abscess and microperforation and pneumoperitoneum, no significant improvement since admission despite antibiotic therapy, patient was evaluated today by Dr. Mcgrath underwent surgery yesterday as above. 2. Underlying history of hyperlipidemia 3. Previous history of breast cancer 4. History of valvular heart disease 5. Events from yesterday with flush pulmonary edema, requiring BiPAP, and transfer to ICU patient is doing much better at this time, possible transfer back to medical floor tomorrow 6. Atrial fibrillation heart rate is well-controlled at this time, patient had an episode of RVR last night, at this time will increase Lovenox to therapeutic dose 1 mg/kg twice daily if it's okay with surgery At this time patient is maintained on IV antibiotic Zosyn white blood count 10 Patient is being transferred out of ICU to the medical floor when bed is available Continue current management awaiting further recommendation from infectious disease Protonix for GI prophylaxis, subcu Lovenox for DVT prophylaxis Patient is having low-grade fever, white blood count is slightly higher today, will monitor till tomorrow Will follow in a.m.
--- NOTE | 2019-09-19 19:48 | PN ---
PROGRESS NOTE DATE OF SERVICE: 09/19/2019 REASON FOR FOLLOWUP: Abdominal abscess from ruptured diverticulitis. INTERVAL HISTORY: The patient did have a low-grade temperature of 99.7. The patient denies having any chest pain or shortness of breath or cough or any worsening abdominal pain. No nausea, vomiting. Did have output in her colostomy bag. PHYSICAL EXAMINATION: Blood pressure is 132/82 with a pulse of 81, temperature 99.7. She is 98% on room air. General description is an elderly female lying in bed in no distress. RESPIRATORY SYSTEM: Unlabored breathing. Clear to auscultation anteriorly. HEART: S1, S2. Regular rate and rhythm. ABDOMEN: Soft. No tenderness. LABS/IMAGING: White count is slightly elevated at 12.2. Chest x-ray has been negative. DIAGNOSTIC IMPRESSION AND PLAN: Patient with an abdominal abscess from ruptured sigmoid diverticulitis with a slight jump in the white count and fever. Will monitor her closely. If any further worsening of the white count or fever, culture and repeat CT of abdomen and pelvis. Continue with the Zosyn. Monitor clinical course closely. MMODL / IJN: [id number] /
[2019-09-19 20:22] LABS: Glucose,Whole Blood 149 mg/dL (75-99)
[2019-09-19] MEDS: ACETAMINOPHEN TAB 325 MG TAB PO PRN (20:51)
[2019-09-20 00:18] VITALS: PULSE 83
[2019-09-20 06:54] LABS: Glucose,Whole Blood 106 mg/dL (75-99)
[2019-09-20] MEDS: INSULIN ASPART (NovoLOG) 100 UNIT/ML VIAL SQ SCH ×2 (07:15→12:49)
[2019-09-20 07:33] LABS: Basophils # (A) 0.1 k/uL (0-0.2); Basophils % (A) 1 %; Eosinophils # (A) 0.5 k/uL (0-0.7); Eosinophils % (A) 4 %; HCT 38.2 % (34.0-46.0); HGB 12.3 gm/dL (11.4-16.0); Lymphocytes # (A) 2.3 k/uL (1.0-4.8); Lymphocytes % (A) 19 %; MCH 28.1 pg (25.0-35.0); MCHC 32.2 g/dL (31.0-37.0); MCV 87.3 fL (80.0-100.0); Mean Platelet Volume 7.8; Monocytes # (A) 0.6 k/uL (0-1.0); Monocytes % (A) 5 %; Neutrophils # (A) 8.4 k/uL (1.3-7.7); Neutrophils % (A) 70 %; Platelet Count 686 k/uL (150-450); RBC 4.37 m/uL (3.80-5.40); RDW 13.3 % (11.5-15.5); WBC 12.1 k/uL (3.8-10.6)
[2019-09-20 07:47] LABS: ALT 16 U/L (4-34); AST 26 U/L (14-36); African American GFR (CKD) >90 (>60 ml/min/1.73 sqM); Albumin 3.4 g/dL (3.5-5.0); Alkaline Phosphatase 129 U/L (38-126); Anion Gap 9 mmol/L; Blood Urea Nitrogen 9 mg/dL (7-17); Calcium 9.7 mg/dL (8.4-10.2); Carbon Dioxide 22 mmol/L (22-30); Chloride 106 mmol/L (98-107); Glucose 106 mg/dL (74-99); Non-African American GFR(CKD) >90 (>60 ml/min/1.73 sqM); Potassium 4.7 mmol/L (3.5-5.1); Sodium 137 mmol/L (137-145); Total Bilirubin 0.4 mg/dL (0.2-1.3); Total Protein 6.7 g/dL (6.3-8.2)
[2019-09-20] MEDS: FUROSEMIDE 40 MG TAB PO SCH (07:54)
[2019-09-20] MEDS: PANTOPRAZOLE 40 MG TABLET PO SCH (07:54)
[2019-09-20] MEDS: APIXABAN 5 MG TAB PO SCH (07:54)
[2019-09-20] MEDS: METOPROLOL TARTRATE 50 MG TAB PO SCH (07:54)
[2019-09-20 08:14] VITALS: BP 125/81; TEMP 98.4
[2019-09-20] MEDS: IOPAMIDOL CONTRAST (ORAL USE) VIAL PO PRN ×2 (09:00→10:01)
--- NOTE | 2019-09-20 11:06 | CT ---
EXAMINATION TYPE: CT abdomen pelvis w con DATE OF EXAM: 09/20/2019 COMPARISON: 09/08/2019 INDICATION: Recent history for diverticulitis, questionable abscess DLP: 846.6 mGycm, Automated exposure control for dose reduction was used. CONTRAST: 100 mL of Isovue 300. Study performed with Oral Contrast TECHNIQUE: Axial images were obtained from above the diaphragm to the pubic rami in the axial plane a t 5 mm thick sections. Reconstructed images are reviewed on the computer in the coronal plane. FINDINGS: Limited CT sections are obtained the lung bases. Small bilateral pleural effusions are present.. CT ABDOMEN: Liver: There is a tiny hypodensity within the right lobe liver could be a small hepatic cysts present previously. Spleen: Normal Pancreas: Normal Adrenal glands: The adrenal glands are normal. Gallbladder: Surgically absent. Kidneys: No masses are evident. No hydronephrosis is present. No cysts are present. Delayed images were obtained through the kidneys, which remain unremarkable. Aorta: Vascular calcification is within the aorta. Inferior vena cava: Normal. CT PELVIS: There is a diverting colostomy in the left lower quadrant. Surgical skin theodora are in th e midline. There is a catheter entering on the right pelvis and is curled within the lower pelvis. No discrete collections to suggest abscess are identified. Previous collection in the region of the pro ximal sigmoid colon is not evident on the current exam. Loops of bowel within the abdomen and pelvis are normal. There are loops of bowel lacking oral co ntrast are limited distention limiting their evaluation. Appendix: Not clearly defined. No suspicious dilated tubular structures or inflammatory changes are e vident. Urinary bladder: Small amount of air is within the urinary bladder. Genitourinary structures: Uterus appears normal. Adnexal regions are clear. Minimal free fluid may be within the pelvis. Osseous structures: No suspicious lytic or sclerotic lesions. IMPRESSIONS: 1. Drainage catheter within the pelvis. No suspicious abscess is identified. Previous collection in the region of the sigmoid colon is not present currently. 2. Small bilateral pleural effusions. 3. Small amount of air within the urinary bladder
--- NOTE | 2019-09-20 11:07 | P.PN ---
Subjective Progress Note Date: 09/20/19 CHIEF COMPLAINT: abdominal pain HISTORY OF PRESENT ILLNESS: Patient is status post Jacinto procedure, takedown of splenic flexure, drainage of interloop abscess, and colostomy creation with Dr. Mcgrath. Patient examined at the bedside. Patient denies abdominal pain. She is tolerating regular diet. Ostomy with stool noted. WBC remains elevated at 12.1. PHYSICAL EXAM: VITAL SIGNS: Reviewed. GENERAL: Well-developed in no acute distress. HEENT: No sclera icterus. Extraocular movements grossly intact. Moist buccal mucosa. Head is atraumatic, normocephalic. ABDOMEN: Soft. Nondistended. Dressing CDI. Ostomy with gas and stool noted. KATARINA drain with serosanguineous drainage NEUROLOGIC: Alert and oriented. Cranial nerves II through XII grossly intact. ASSESSMENT: 1. Perforated diverticulitis with pelvic abscess and interloop abscess 2. Hiatal hernia PLAN: -Continue antibiotics -Continue diet as tolerated -Activity as tolerated -Incentive spirometer -Obtain CT abdomen and pelvis with IV and oral contrast Nurse practitioner note has been reviewed by physician. Signing provider agrees with the documented findings, assessment, and plan of care. Objective - Vital Signs Vital signs: Vital Signs Temp 98.4 F 09/20/19 07:00 Pulse 83 09/20/19 08:00 Resp 18 09/20/19 08:00 BP 125/81 09/20/19 07:00 Pulse Ox 96 09/20/19 07:00 Intake & Output 09/19/19 09/20/19 09/20/19 18:59 06:59 18:59 Intake Total 260 480 Output Total 705 210 200 Balance -445 -210 280 Weight 71 kg Intake: IV 260 0.9 KVO 160 Piperacillin-Tazobactam 3 100 .375 gm In Sodium Chloride 0.9% 100 ml @ 25 mls/hr IVPB Q8HR [facility] Rx# :[id number] Oral 480 Output: Drainage 5 10 Abdomen 5 10 Urine 300 Stool 400 200 200 Other: Voiding Method Indwelling Catheter Toilet Toilet # Voids 1 - Labs CBC & Chem 7: 09/20/19 06:29 09/20/19 06:29 Labs: Abnormal Lab Results - Last 24 Hours (Table) 09/19/19 09/19/19 09/19/19 Range/Units 11:24 16:39 20:21 WBC (3.8-10.6) k/uL Plt Count (150-450) k/uL Neutrophils # (1.3-7.7) k/uL Creatinine (0.52-1.04) mg/dL Glucose (74-99) mg/dL POC Glucose (mg/dL) 143 H 160 H 149 H (75-99) mg/dL Alkaline Phosphatase (38-126) U/L Albumin (3.5-5.0) g/dL 09/20/19 09/20/19 09/20/19 Range/Units 06:29 06:29 06:53 WBC 12.1 H (3.8-10.6) k/uL Plt Count 686 H (150-450) k/uL Neutrophils # 8.4 H (1.3-7.7) k/uL Creatinine 0.48 L (0.52-1.04) mg/dL Glucose 106 H (74-99) mg/dL POC Glucose (mg/dL) 106 H (75-99) mg/dL Alkaline Phosphatase 129 H (38-126) U/L Albumin 3.4 L (3.5-5.0) g/dL
[2019-09-20 11:24] LABS: Glucose,Whole Blood 134 mg/dL (75-99)
--- NOTE | 2019-09-20 13:08 | P.DS ---
Providers Date of admission: 09/05/19 15:55 Expected date of discharge: 09/20/19 Attending physician: Den Mcgrath Consults: 09/05/19 15:44 Consult Physician Stat Consulting Provider: Leslie Estrada Consult Reason/Comments: Diverticulitis, acute abdomen, pericolonic abscess Do you want consulting provider notified?: Yes 09/07/19 12:10 Consult Physician Routine Consulting Provider: Chucky Friedman Consult Reason/Comments: leukocytosis Do you want consulting provider notified?: Yes 09/13/19 02:01 Consult Physician Stat Consulting Provider: Bjorn Ga Consult Reason/Comments: Respiratory Distress Do you want consulting provider notified?: Yes 09/14/19 19:01 Consult Physician Stat Consulting Provider: Haleigh Siu Consult Reason/Comments: Afib RVR Do you want consulting provider notified?: Already Contacted Primary care physician: Leslie [facility] Course: 69-year-old female who initially presented to the emergency room the chief compl aint of abdominal pain. Patient had a computed tomography scan completed revealing perforated diverticulitis. She is status post Jacinto procedure, takedown of splenic flexure, drainage of interloop abscess, and colostomy creation with Dr. Mcgrath. Patient is doing well postoperatively. She is tolerating diet without nausea or vomiting. Ostomy is functioning. Patient did develop atrial fibrillation during hospitalization and was followed by cardiology. She was started on Eliquis. She is stable for discharge home today per Dr. Mcgrath. Please see EMR for further hospital course details. Discharge Diagnosis: 1. Perforated diverticulitis with pelvic abscess and interloop abscess 2. Hiatal hernia Nurse practitioner note has been reviewed by physician. Signing provider agrees with the documented findings, assessment, and plan of care. Patient Condition at Discharge: Stable Plan - Discharge Summary New Discharge Prescriptions: New Hydrocodone/Acetaminophen [Jefferson 5-325] 1 tab PO Q6HR PRN #10 tab PRN Reason: Pain Apixaban [Eliquis] 5 mg PO BID #60 tab Levofloxacin [Levaquin] 500 mg PO DAILY 7 Days #7 tab No Action Simvastatin [Zocor] 20 mg PO HS Ondansetron Odt [Zofran Odt] 8 mg PO Q8H PRN PRN Reason: Nausea Calcium Carbonate [Tums] 500 - 1,000 mg PO QID PRN PRN Reason: Heartburn Aspirin/Acetaminophen/Caffeine [Excedrin Extra Strength Caplet] 1 - 2 tab PO DAILY PRN PRN Reason: Migraine Headache Discharge Medication List Simvastatin [Zocor] 20 mg PO HS 07/01/19 [History] Aspirin/Acetaminophen/Caffeine [Excedrin Extra Strength Caplet] 1 - 2 tab PO DAILY PRN 09/05/19 [History] Calcium Carbonate [Tums] 500 - 1,000 mg PO QID PRN 09/05/19 [History] Ondansetron Odt [Zofran Odt] 8 mg PO Q8H PRN 09/05/19 [History] Hydrocodone/Acetaminophen [Jefferson 5-325] 1 tab PO Q6HR PRN #10 tab 09/12/19 [Rx] Apixaban [Eliquis] 5 mg PO BID #60 tab 09/20/19 [Rx] Levofloxacin [Levaquin] 500 mg PO DAILY 7 Days #7 tab 09/20/19 [Rx] Follow up Appointment(s)/Referral(s): [facility], [NON-STAFF] - [facility],Infusion [NON-STAFF] - Leslie Estrada MD [Primary Care Provider] - 09/13/19 11:30 am (Please wear a mask to your appointment. Thank you.) Trevon Fuller MD [STAFF PHYSICIAN] - 1 Week Den Mcgrath MD [STAFF PHYSICIAN] - 1 Week Patient Instructions/Handouts: Diverticulitis (GEN), Colostomy Care (GEN), Abscess (ED) Activity/Diet/Wound Care/Special Instructions: Recommendations for Home Ostomy Care: Last pouching system change: 09.17.2019 Convatec Flanges moldable #[id number] (3 from hospital) Convatec pouch with filter #[id number] (3 from hospital) No sting prep pads (10) from hospital Ostomy powder Mrs Castellano is to empty the pouch when it is 1/2 to 1/3 full Mrs Castellano is to change the pouching system every 3-5 days Home Health please set Mrs Castellano up for disposable pouching system in 2 weeks after discharge No driving while taking Jefferson No lifting over 10 pounds You may shower. No soaking or tub baths Very light activity until you are reevaluated at your follow up appointment with your surgeon
--- NOTE | 2019-09-20 14:19 | PN ---
PROGRESS NOTE DATE OF SERVICE: 09/20/2019 REASON FOR FOLLOWUP: Abdominal abscess from ruptured diverticulitis. INTERVAL HISTORY: The patient is currently afebrile, patient is breathing comfortably. Denies having any chest pain. No shortness of breath or cough. No nausea, vomiting. No vomiting or diarrhea. PHYSICAL EXAMINATION: Blood pressure 125/81, pulse 83, temperature 98.4, she is 96% on room air. General description is an elderly female, lying in bed in no distress. RESPIRATORY SYSTEM: Unlabored breathing, clear to auscultation anteriorly. HEART: S1, S2. Regular rate and rhythm. ABDOMEN: Soft, no tenderness. LABS: Hemoglobin 12.1, white count 10, BUN of 9, creatinine 0.48. DIAGNOSTIC IMPRESSION AND PLAN: Patient with abdominal abscess from ruptured diverticulitis, status post diverting colostomy. The patient did have a repeat CAT, no evidence of any abscess. He will finish a short course of oral Levaquin and Flagyl for about a week and close outpatient followup. MMODL / IJN: [id number] /
--- NOTE | 2019-09-21 09:34 | CDI ---
Documentation Clarification Form Date: 09/21/19 From: Tesha Flores Phone: If you have a question about this query, please contact Kyra Mc, Materials Mgmt Tech at [phone] between 8am and 5pm. Admit Date: 09/05/19 Discharge Date: 09/20/19 Patient Name: ROCKY THORNTON Visit Number: [id number] ATTENTION: The Clinical Documentation Specialists (CDI) and [facility] Coding Staff appreciate your assistance in clarifying documentation. Please respond to the clarification below the line at the bottom and electronically sign. The CDI & [facility] Coding staff will review the response and follow-up if needed. Please note: Queries are made part of the Legal Health Record. If you have any questions, please contact the author of this message via ITS. Dear Dr. Den Mcgrath, The diagnosis of sepsis, POA was documented in the Dr Friedman's consult and Dr Molina's PNs on 09/16 & 09/17, but is not noted in subsequent documentation. History/Risk Factors: acute diverticulitis w pelvic abscess and interloop abscess. Clinical Indicators: Lactic acid: 09/04-1.0, 09/12-2.4 Lactic acid reflex: 09/12-Y WBC: 09/05-11.8, 09/12-27.3 Neutrophils: 09/05-9.5, 09/12-21.8 Treatment: 09/04- IV Zoysn, IV Vanco, Please clarify if the sepsis was Present on admission & treated Sepsis ruled out Other, please specify Clinically unable to determine MTDD
--- NOTE | 2019-09-28 09:31 | CDI ---
Documentation Clarification Form Date: 09/21/19 From: Tesha Flores Phone: If you have a question about this query, please contact Kyra Mc, Women'S Lacrosse Coach at [phone] between 8am and 5pm. Admit Date: 09/05/19 Discharge Date: 09/20/19 Patient Name: ROCKY THORNTON Visit Number: [id number] ATTENTION: The Clinical Documentation Specialists (CDI) and [facility] Coding Staff appreciate your assistance in clarifying documentation. Please respond to the clarification below the line at the bottom and electronically sign. The CDI & [facility] Coding staff will review the response and follow-up if needed. Please note: Queries are made part of the Legal Health Record. If you have any questions, please contact the author of this message via ITS. Dear Dr. Den Mcgrath, The diagnosis of sepsis, POA was documented in the Dr Friedman's consult and Dr Molina's PNs on 09/16 & 09/17, but is not noted in subsequent documentation. History/Risk Factors: acute diverticulitis w pelvic abscess and interloop abscess. Clinical Indicators: Lactic acid: 09/04-1.0, 09/12-2.4 Lactic acid reflex: 09/12-Y WBC: 09/05-11.8, 09/12-27.3 Neutrophils: 09/05-9.5, 09/12-21.8 Treatment: 09/04- IV Zoysn, IV Vanco, Please clarify if the sepsis was Present on admission & treated Sepsis ruled out Other, please specify Clinically unable to determine Sepsis was present on admission. MTDD
== END 2019-09-20 15:23 | disposition home health service (06) | DRG 853 ==
LOC: EC 14:04 → 4SSUR 15:55 → 2SICU 09-13 01:10 → 4SSUR 09-17 17:52
PROVIDERS: ADMIT Surgery; ATTEND Surgery
PROC: 3E0436Z Introduction of Nutritional Substance into Central Vein, Percutaneous Approach (ICD-10-PCS; 2019-09-09 10:20)
PROC: 05HD33Z Insertion of Infusion Device into Right Cephalic Vein, Percutaneous Approach (ICD-10-PCS; 2019-09-09 10:20)
PROC: 0DTN0ZZ Resection of Sigmoid Colon, Open Approach (ICD-10-PCS; principal; 2019-09-11 10:00)
PROC: 0W9H0ZZ Drainage of Retroperitoneum, Open Approach (ICD-10-PCS; principal; 2019-09-11 10:00)
PROC: 0D1M0Z4 Bypass Descending Colon to Cutaneous, Open Approach (ICD-10-PCS; principal; 2019-09-11 10:00)
PROC: 5A09557 Assistance with Respiratory Ventilation, Greater than 96 Consecutive Hours, Continuous Positive Airway Pressure (ICD-10-PCS; 2019-09-13)
DX: A41.9 Sepsis, unspecified organism (principal); J96.01 Acute respiratory failure with hypoxia; I50.31 Acute diastolic (congestive) heart failure; K65.1 Peritoneal abscess; K57.20 Diverticulitis of large intestine with perforation and abscess without bleeding; R65.20 Severe sepsis without septic shock; I27.20 Pulmonary hypertension, unspecified; I11.0 Hypertensive heart disease with heart failure; I48.0 Paroxysmal atrial fibrillation; E11.9 Type 2 diabetes mellitus without complications; K64.9 Unspecified hemorrhoids; I08.1 Rheumatic disorders of both mitral and tricuspid valves; K44.9 Diaphragmatic hernia without obstruction or gangrene; E78.5 Hyperlipidemia, unspecified; Z11.59 Encounter for screening for other viral diseases; Z79.82 Long term (current) use of aspirin; Z79.899 Other long term (current) drug therapy; Z85.3 Personal history of malignant neoplasm of breast; Z98.890 Other specified postprocedural states; Z92.21 Personal history of antineoplastic chemotherapy; Z92.3 Personal history of irradiation; Z87.891 Personal history of nicotine dependence; Z90.49 Acquired absence of other specified parts of digestive tract; Z91.030 Bee allergy status; Z82.49 Family history of ischemic heart disease and other diseases of the circulatory system; Z83.1 Family history of other infectious and parasitic diseases; Z83.511 Family history of glaucoma; Z83.49 Family history of other endocrine, nutritional and metabolic diseases
CPT/HCPCS: 36410; 36415; 71045; 74177; 76937; 80048; 80053; 81003; 82150; 82330; 83605; 83690; 83735; 84100; 84132; 84443; 84478; 85025; 85027; 85379; 85610; 85730; 86140; 87040; 87635; 88307; 93005; 93306; 94660; 96361; 96374; 99285

== ENCOUNTER → 2019-09-05 | Outpatient (CLI) | payer MEDICARE, OTHER ==
[2019-09-05 12:00] LABS: Basophils # (A) 0.1 k/uL (0-0.2); Basophils % (A) 0 %; Eosinophils % (A) 0 %; HCT 46.5 % (34.0-46.0); HGB 15.3 gm/dL (11.4-16.0); Lymphocytes # (A) 1.5 k/uL (1.0-4.8); Lymphocytes % (A) 9 %; MCH 28.8 pg (25.0-35.0); MCHC 32.9 g/dL (31.0-37.0); MCV 87.4 fL (80.0-100.0); Mean Platelet Volume 7.4; Monocytes # (A) 0.9 k/uL (0-1.0); Monocytes % (A) 5 %; Neutrophils # (A) 14.5 k/uL (1.3-7.7); Neutrophils % (A) 84 %; Platelet Count 361 k/uL (150-450); RBC 5.31 m/uL (3.80-5.40); RDW 12.8 % (11.5-15.5); WBC 17.2 k/uL (3.8-10.6)
[2019-09-05 12:24] LABS: Albumin 4.8 g/dL (3.5-5.0); Calcium 10.8 mg/dL (8.4-10.2); Potassium 4.6 mmol/L (3.5-5.1); Total Bilirubin 1.1 mg/dL (0.2-1.3)
--- NOTE | 2019-09-05 13:21 | CT ---
EXAMINATION TYPE: CT abdomen pelvis w con DATE OF EXAM: 09/05/2019 HISTORY: LLQ pain with history of prior diverticulitis CT DLP: 489.6mGycm Automated Exposure Control for Dose Reduction was Utilized. CONTRAST: CT scan of the abdomen and pelvis is performed with IV Contrast, patient injected with 100 mL of Isov ue 300. COMPARISON: None. FINDINGS: LUNG BASES: No significant abnormality is appreciated. LIVER/GB: Too small to accurately characterizer subcapsular 7 mm hypoattenuated hepatic lesion on zakia ge 9. Foci of pneumoperitoneum are seen along the liver capsule. Gallbladder surgically absent. Sligh tly low attenuation of the liver seen however this does not yet meet criteria for hepatic steatosis. PANCREAS: No significant abnormality is seen. SPLEEN: No splenomegaly. Foci of free air seen in the spleen. ADRENALS: Questionable adrenal gland nodule situated along the liver border on image 17 does not meet Hounsfield units of a benign adenoma. This could be further evaluated with three-phase CT abdomen or MR. KIDNEYS: Hypoattenuated left renal lesion measures approximately 1.2 cm and is likely related to a sm all cyst however this does not meet criteria for simple cyst. This could also be confirmed with the b elow recommended three-phase CT or MR or renal ultrasound. Bilateral subcentimeter too small to accur ately characterize renal lesions are also seen. No hydronephrosis of either kidney. BOWEL: There is a contrast-filled moderate hiatal hernia. There is marked thickening of the sigmoid c olon with focal perforation as free air is seen to the right of the sigmoid colon. Pericolonic inflam matory fat stranding is also seen. There are scattered sigmoid diverticula. Thickening of the adjacen t fascial planes is seen of the pelvic sidewall. There is an air-containing adjacent small fluid dustin ection measuring 1.4 x 1.7 cm with adjacent vasculature on image 61. No dilated large or small bowel. Lack of haustration of the descending colon is seen. LYMPH NODES: No greater than 1cm abdominal or pelvic lymph nodes are appreciated. OSSEOUS STRUCTURES: Mild multilevel degenerative change of the spine. OTHER: Right breast asymmetry is partially visualized. No recent mammography at this institution. IMPRESSION: 1. Acute uncomplicated diverticulitis with pericolonic abscess and operation with pneumoperitoneum in the pelvis and along the diaphragmatic border. Finding was communicated with the ordering provider ( Meera Isbell) by Dr. Avery at 1311 PM on 09/05/2019. 2. Indeterminant right adrenal gland nodule and left renal cyst that could be further characterized w ith three-phase enhanced CT abdomen or MR abdomen. 3. Partial visualization of the right breast asymmetry. No recent mammography at this institution. Di agnostic mammography is recommended. 4. Moderate hiatal hernia containing contrast. This may relate to decreased propulsion or gastroesoph ageal reflux.
== END | disposition home or self-care (01) ==
LOC: RADCTMAIN 10:20
PROVIDERS: ATTEND Nurse Practitioner Family
DX: K57.20 Diverticulitis of large intestine with perforation and abscess without bleeding (principal); N28.1 Cyst of kidney, acquired; E27.8 Other specified disorders of adrenal gland; K44.9 Diaphragmatic hernia without obstruction or gangrene; N64.89 Other specified disorders of breast
CPT/HCPCS: 80053; 85025; 74177; 36415; Q9967

== ENCOUNTER → 2019-11-22 | Outpatient (CLI) | payer MEDICARE, OTHER ==
--- NOTE | 2019-11-24 07:36 | MM ---
Reason for exam: screening (asymptomatic). Last mammogram was performed 5 years and 3 months ago. History: Patient is postmenopausal, has history of breast cancer at age 52, and had first child at age 36. Family history of breast cancer in maternal aunt. Benign ultrasound-guided core biopsy of the right breast, August 18, 2003. Malignant stereotactic core biopsy of the left breast, August 05, 2002. Core biopsy of the left breast. 4 excisional biopsies of the right breast. Lumpectomy of the left breast. Chemotherapy. Radiation therapy of the left breast. Physical Findings: A clinical breast exam by your physician is recommended on an annual basis and results should be correlated with mammographic findings. MG 3D Screening Mammo W/Cad Bilateral CC and MLO view(s) were taken. Prior study comparison: September 04, 2014, bilateral MG diagnostic mammo w CAD IRAM. The breast tissue is extremely dense which could obscure a lesion on mammography. Finding #1: Architectural distortion in the upper outer quadrant, posterior position of the left breast consistent with known lumpectomy changes. Finding #2: There are typically benign dystrophic, round calcifications in both breasts. There is no discrete abnormality. ASSESSMENT: Benign, BI-RAD 2 RECOMMENDATION: Routine screening mammogram of both breasts in 1 year.
== END | disposition home or self-care (01) ==
LOC: RADMAMWWP 15:40
PROVIDERS: ATTEND Internal Medicine
DX: Z12.31 Encounter for screening mammogram for malignant neoplasm of breast (principal)
CPT/HCPCS: 77063; 77067

== ENCOUNTER → 2020-01-18 | Outpatient (CLI) | payer MEDICARE, OTHER ==
[2020-01-18 09:30] LABS: HCT 45.2 % (34.0-46.0); HGB 14.7 gm/dL (11.4-16.0); MCH 27.7 pg (25.0-35.0); MCHC 32.5 g/dL (31.0-37.0); MCV 85.2 fL (80.0-100.0); Mean Platelet Volume 7.1; Platelet Count 319 k/uL (150-450); RDW 13.7 % (11.5-15.5); WBC 7.4 k/uL (3.8-10.6)
[2020-01-18 09:37] LABS: Potassium 4.7 mmol/L (3.5-5.1)
== END | disposition home or self-care (01) ==
LOC: LABPAT 08:30
PROVIDERS: ATTEND Surgery
DX: Z01.818 Encounter for other preprocedural examination (principal); K57.33 Diverticulitis of large intestine without perforation or abscess with bleeding
CPT/HCPCS: 36415; 80051; 85027

== ENCOUNTER 2020-01-26 09:34 | Day surgery (SDC) | payer MEDICARE, OTHER ==
[2020-01-24 12:57] VITALS: BMI 25.2
[~2020-01-26 09:34] MED LIST: LACTATED RINGERS 1,000 ML IV SCH; LIDOCAINE 1% (10MG/ML) FOR IV START INTRADERMA PRN
[2020-01-26 10:14] VITALS: TEMP 98.1
--- NOTE | 2020-01-26 10:43 | P.GSHP ---
History of Present Illness H&P Date: 01/26/20 Chief Complaint: History of perforated diverticulitis This a 61-year-old female who presents today for colonoscopy. Patient has a previous history of perforated diverticulitis. Past Medical History Past Medical History: Atrial Fibrillation, Cancer, Hyperlipidemia Additional Past Medical History / Comment(s): Do Not Use Left Arm for IV or BP- left breast CA with lumpectomy, radiation and chemo 2002. 09/11/19 Diverticulitis w/ perforation, colostomy; developed AFib w/ RVR, pulmonary edema post-op. History of Any Multi-Drug Resistant Organisms: None Reported Past Surgical History: Bowel Resection, Breast Surgery, Cholecystectomy, Tonsillectomy Additional Past Surgical History / Comment(s): L breast lumpectomy 2002. Gomez proc w/ Colostomy 09/11/19 Past Anesthesia/Blood Transfusion Reactions: Motion Sickness Additional Past Anesthesia/Blood Transfusion Reaction / Comment(s): Pt has never recieved blood. Smoking Status: Former smoker - Past Family History Father Family Medical History: Myocardial Infarction ([place]) Additional Family Medical History / Comment(s): Father had a [place] in his 60's. He from a post op hip infection at age 73 yrs. no gallbladder disease Mother Family Medical History: Eye Disorder, Hypertension Additional Family Medical History / Comment(s): Mother had glaucoma. She at age 82 yrs. Medications and Allergies Home Medications Medication Instructions Recorded Confirmed Type Simvastatin [Zocor] 20 mg PO HS 07/01/19 01/26/20 History Aspirin/Acetaminophen/Caffeine 1 - 2 tab PO DAILY PRN 09/05/19 01/26/20 History [Excedrin Extra Strength Caplet] Calcium Carbonate [Tums] 500 - 1,000 mg PO QID PRN 09/05/19 01/26/20 History Apixaban [Eliquis] 5 mg PO BID #60 tab 09/20/19 01/26/20 Rx Cyanocobalamin (Vitamin B-12) 1,000 mcg PO DAILY 01/24/20 01/26/20 History [Vitamin B-12] Metoprolol Tartrate [Lopressor] 25 mg PO BID 01/24/20 01/26/20 History Multivitamins, Thera [Multivitamin 1 tab PO Q7D 01/24/20 01/26/20 History (formulary)] Allergies Allergy/AdvReac Type Severity Reaction Status Date / Time bee venom protein (honey bee) Allergy Anaphylaxis Verified 01/26/20 10:09 Surgical - Exam Vital Signs Temp Pulse Resp BP Pulse Ox 98.1 F 70 16 152/78 99 01/26/20 10:12 01/26/20 10:12 01/26/20 10:12 01/26/20 10:12 01/26/20 10:12 - General well developed, well nourished, no distress - Eyes PERRL - ENT normal pinna - Neck no masses - Respiratory normal expansion - Cardiovascular Rhythm: regular - Abdomen Colostomy left lower quadrant Abdomen: soft, non tender Assessment and Plan Assessment: History of perforated diverticulitis. We'll perform colonoscopy.
[2020-01-26] MEDS ORDERED: PROPOFOL 10 MG/ML 20 ML VIAL IV ONE (10:45)
--- NOTE | 2020-01-26 11:00 | P.OP ---
Date of Procedure: 01/26/20 Preoperative Diagnosis: History of perforated diverticulitis Postoperative Diagnosis: History of perforated diverticulitis Procedure(s) Performed: Colonoscopy Anesthesia: MAC Surgeon: Den Mcgrath Pathology: none sent Condition: stable Disposition: PACU Description of Procedure: The patient's placed on the endoscopy table lateral position. She received IV sedation. Digital rectal exam was performed which revealed external hemorrhoids. The flexible colonoscope was then placed patient anus. The rectal stump measured approximately 15 cm in length. There were a few diverticula noted at the distal end. Scope was withdrawn. Next the patient's colostomy was cannulated scope. The possible colonoscope was then placed throughout the colon the ileocecal valve sutures. The cecum, ascending colon appeared normal. In the transverse and remaining descending colon there was a few scattered divert icula. There is no evidence of diverticulitis. There is no evidence of polyps. The scope was withdrawn for patient.
[2020-01-26 11:20] VITALS: BP 119/76; PULSE 60; RESP 16
== END 2020-01-26 11:40 | disposition home or self-care (01) ==
LOC: ORWHC2ENDO 09:34
PROVIDERS: ATTEND Surgery
DX: K57.30 Diverticulosis of large intestine without perforation or abscess without bleeding (principal); K64.9 Unspecified hemorrhoids; Z93.3 Colostomy status; I48.91 Unspecified atrial fibrillation; E78.5 Hyperlipidemia, unspecified; Z91.030 Bee allergy status; Z79.01 Long term (current) use of anticoagulants; Z79.899 Other long term (current) drug therapy; Z90.49 Acquired absence of other specified parts of digestive tract; Z98.890 Other specified postprocedural states; Z85.3 Personal history of malignant neoplasm of breast; Z92.21 Personal history of antineoplastic chemotherapy; Z92.3 Personal history of irradiation; Z87.891 Personal history of nicotine dependence; Z82.49 Family history of ischemic heart disease and other diseases of the circulatory system; Z83.511 Family history of glaucoma
CPT/HCPCS: 44388; J2704

== ENCOUNTER 2020-01-27 07:40 | Inpatient (IN) | payer MEDICARE, OTHER ==
[~2020-01-27 07:40] MED LIST changes: +ACETAMINOPHEN TAB 500 MG TAB PO ONE; +DEXAMETHASONE SOD PHOSPHATE 10 MG/ML 1 ML VIAL IV ONE; +HEPARIN SODIUM,PORCINE 5,000 UNIT/ML 1 ML VIAL SQ ONE; +HYDROmorphone 0.5 MG/0.5 ML SYRINGE IVP PRN; -LACTATED RINGERS 1,000 ML IV SCH; +MIDAZOLAM 2 MG/2 ML VIAL IV PRN; +ONDANSETRON 4 MG/2 ML VIAL IVP ONE; +metroNIDAZOLE-NS PMX 500 MG in SALINE 1 100ML.BAG IVPB ONE
[2020-01-27] MEDS: LACTATED RINGERS 1,000 ML IV SCH (09:54)
--- NOTE | 2020-01-27 11:43 | P.GSHP ---
History of Present Illness H&P Date: 01/27/20 Chief Complaint: History of perforated diverticulitis This a 61-year-old female with a previous history of perforated diverticula is. Patient presents today for reversal of colostomy. Past Medical History Past Medical History: Atrial Fibrillation, Cancer, Hyperlipidemia Additional Past Medical History / Comment(s): Do Not Use Left Arm for IV or BP- left breast CA with lumpectomy, radiation and chemo 2002. 09/11/19 Diverticulitis w/ perforation, colostomy; developed AFib w/ RVR, pulmonary edema post-op. History of Any Multi-Drug Resistant Organisms: None Reported Past Surgical History: Bowel Resection, Breast Surgery, Cholecystectomy, Tonsillectomy Additional Past Surgical History / Comment(s): L breast lumpectomy 2002. Kelly man proc w/ Colostomy 09/11/19 Past Anesthesia/Blood Transfusion Reactions: Motion Sickness Additional Past Anesthesia/Blood Transfusion Reaction / Comment(s): Pt has never recieved blood. Smoking Status: Former smoker - Past Family History Father Family Medical History: Myocardial Infarction ([place]) Additional Family Medical History / Comment(s): Father had a [place] in his 60's. He from a post op hip infection at age 73 yrs. no gallbladder disease Mother Family Medical History: Eye Disorder, Hypertension Additional Family Medical History / Comment(s): Mother had glaucoma. She at age 82 yrs. Medications and Allergies Home Medications Medication Instructions Recorded Confirmed Type Simvastatin [Zocor] 20 mg PO HS 07/01/19 01/27/20 History Aspirin/Acetaminophen/Caffeine 1 - 2 tab PO DAILY PRN 09/05/19 01/27/20 History [Excedrin Extra Strength Caplet] Calcium Carbonate [Tums] 500 - 1,000 mg PO QID PRN 09/05/19 01/27/20 History Apixaban [Eliquis] 5 mg PO BID #60 tab 09/20/19 01/26/20 Rx Cyanocobalamin (Vitamin B-12) 1,000 mcg PO DAILY 01/24/20 01/27/20 History [Vitamin B-12] Metoprolol Tartrate [Lopressor] 25 mg PO BID 01/24/20 01/27/20 History Multivitamins, Thera [Multivitamin 1 tab PO Q7D 01/24/20 01/26/20 History (formulary)] Allergies Allergy/AdvReac Type Severity Reaction Status Date / Time bee venom protein (honey bee) Allergy Anaphylaxis Verified 01/26/20 10:09 Surgical - Exam Vital Signs Temp Pulse Resp BP Pulse Ox 98.2 F 68 16 109/59 96 01/27/20 09:51 01/27/20 09:51 01/27/20 09:51 01/27/20 09:51 01/27/20 09:51 - General well developed, well nourished - Eyes PERRL - ENT normal pinna - Neck no masses - Respiratory normal expansion - Cardiovascular Rhythm: regular - Abdomen Colostomy in the left upper quadrant Abdomen: soft, non tender Assessment and Plan Assessment: History of perforated diverticulitis. We'll perform reversal colostomy
--- NOTE | 2020-01-27 11:54 | P.ANPRN ---
Procedure Note - Anesthesia - Epidural/Spinal Epidural Continuous Time Out Performed: Yes Date of Procedure: 01/27/20 Procedure Start Time: 10:09 Procedure Stop Time: 10:16 Location of Patient: PreOp Indication: Acute Post-Operative Pain, Requested by Surgeon Sedation Type: Sedate with meaningful contact maintained Preparation: Sterile Prep Position: Sitting Catheter: Indwelling Needle Guage: 18 Injectate: Test Dose Lidocaine1.5% w/1:200,000 epi Blood Aspirated: Yes Pain Paresthesia on Injection Noted: Yes Events: Uneventful and Well Tolerated (test dose 3cc)
[2020-01-27] MEDS ORDERED: ALVIMOPAN 12 MG CAPSULE PO ONE (11:57)
[2020-01-27] MEDS ORDERED: NEOSTIGMINE 1 MG/ML 10 ML VIAL ONE (12:18)
[2020-01-27] MEDS ORDERED: PROPOFOL 10 MG/ML 20 ML VIAL IV ONE (12:18)
[2020-01-27] MEDS ORDERED: HYDROmorphone (PF) 1 MG/ML ONE (12:18)
[2020-01-27] MEDS ORDERED: GLYCOPYRROLATE 0.2 MG/ML 2 ML VIAL ONE (12:18)
[2020-01-27] MEDS ORDERED: ROCURONIUM BROMIDE 10 MG/ML 5 ML VIAL IV ONE (12:18)
[2020-01-27] MEDS ORDERED: MIDAZOLAM 2 MG/2 ML VIAL ONE (12:18)
[2020-01-27] MEDS ORDERED: LIDOCAINE 1% INJ 10MG/ML (20 ML MDV) ONE (12:18)
[2020-01-27] MEDS ORDERED: fentaNYL (PF) 50 MCG/ML 2 ML AMP ONE (12:18)
[2020-01-27] MEDS ORDERED: SUCCINYLCHOLINE CHLORIDE 100 MG/5 ML SYR IV ONE (12:18)
[2020-01-27] MEDS ORDERED: LACTATED RINGERS 1,000 ML IV ONE (13:07)
[2020-01-27] MEDS ORDERED: NALOXONE 0.4 MG/ML 1 ML VIAL IV PRN (13:53)
[2020-01-27] MEDS ORDERED: BENZOCAINE/MENTHOL LOZENG 1 EACH LOZENGE MUCOUS MEM PRN (14:24)
--- NOTE | 2020-01-27 14:24 | P.OP ---
Date of Procedure: 01/27/20 Preoperative Diagnosis: History of perforated diverticulitis Postoperative Diagnosis: History of perforated diverticulitis Procedure(s) Performed: Reversal of colostomy Lysis of adhesions Partial omentectomy Anesthesia: JOSE Surgeon: Den Mcgrath Estimated Blood Loss (ml): 25 Pathology: other (Colon, omentum) Condition: stable Disposition: PACU Description of Procedure: The patient's placed on the operating table in supine position. She received general anesthesia. She was then placed in dorsal lithotomy position. Her abdomen was prepped and draped usual sterile fashion. Martinez catheter had been placed. The abdomen was entered through a midline incision. There were adhesions to the midline scar. These were lysed with sharp dissection. The Bookwalter tract with wound. More adhesions were lysed and small bowel. The colon was then transected at the fascial level using the GI stapler. And then the bowel was dissected free from the pelvis. The splenic flexure was taken down using left cautery and sharp dissection. And then a suitable length of colon was able to reach the pelvis. The colon was opened and the distal end and the anvil for the 25 mm EEA stapler was placed into the colon. The colon was then transected the GI stapler. The anvil was then driven through the staple line. And then the portion of distal colon was transected by dividing the mesentery of the colon using the Enseal device. At this point the rectal stump suture was seen. The patient's rectal stump was at the peritoneal reflection. The training and development assistant placed the EEA stapler into the patient's anus and then the spike was driven through the rectal stump. The anvil was cut to the rectal stump and then the stapler was closed and fired. 2 intact tissue donuts were removed from the stapler. A hydroureter was used to close occluded the colon and then the rectum was insufflated with air. There is no evidence of any extravasation. The abdomen was irrigated. The omentum was examined. The omentum appeared to have some nonviable portions these were divided using the Enseal device. The abdomen was irrigated no bleeding seen. The fascia was closed with looped #1 PDS suture. Skin was closed theodora. The colostomy was excised with cautery. The fascial defect was closed with 0 Vicryl suture. Skin was closed theodora. Patient top she will was sent to recovery room in stable condition.
[2020-01-27] MEDS: ROPIVACAINE 250 MG, HYDROMORPHONE (PF) 5 MG in SODIUM CHLORIDE 0.9% 200 ML EPIDURAL PRN (14:53)
[2020-01-27] MEDS: D5-0.45% NACL WITH KCL 20MEQ/L 1,000 ML IV SCH ×2 (17:27→23:27)
[2020-01-27] MEDS: HEPARIN SODIUM,PORCINE 5,000 UNIT/ML 1 ML VIAL SQ SCH ×2 (17:32→23:27)
[2020-01-27 18:22] LABS: Basophils % (A) 0 %; Eosinophils % (A) 0 %; HCT 44.3 % (34.0-46.0); HGB 14.4 gm/dL (11.4-16.0); Lymphocytes # (A) 0.7 k/uL (1.0-4.8); Lymphocytes % (A) 4 %; MCH 27.9 pg (25.0-35.0); MCHC 32.4 g/dL (31.0-37.0); MCV 86.1 fL (80.0-100.0); Mean Platelet Volume 7.1; Monocytes # (A) 0.7 k/uL (0-1.0); Monocytes % (A) 3 %; Neutrophils # (A) 19.3 k/uL (1.3-7.7); Neutrophils % (A) 93 %; Platelet Count 301 k/uL (150-450); RBC 5.14 m/uL (3.80-5.40); RDW 13.3 % (11.5-15.5); WBC 20.8 k/uL (3.8-10.6)
[2020-01-27 18:55] LABS: Calcium 9.4 mg/dL (8.4-10.2); Potassium 4.6 mmol/L (3.5-5.1)
[2020-01-27] MEDS ORDERED: ASPIRIN-ACET-CAFF 250-250-65MG 1 EACH TAB PO PRN (20:22)
[2020-01-27] MEDS ORDERED: CALCIUM CARBONATE 500 MG CHEWABLE PO PRN (20:22)
[2020-01-27] MEDS: ATORVASTATIN 10 MG TAB PO SCH (21:27)
[2020-01-27] MEDS: FAMOTIDINE 20 MG/2 ML VIAL IV SCH (21:27)
[2020-01-27] MEDS: METOPROLOL TARTRATE 25 MG TAB PO SCH (21:27)
[2020-01-27] MEDS: ALVIMOPAN 12 MG CAPSULE PO SCH (21:27)
--- NOTE | 2020-01-28 06:44 | P.PN ---
Progress Note - Text Progress Note Date: 01/28/20 Patient without complaints. Tolerating clears. Denies headache or weakness. Pain 0/10. Epidural at 7 ml/hr. Epidural site clean and dry. POD#1 s/p colostomy reversal. Assessment and plan: will continue epidural
[2020-01-28] MEDS: CYANOCOBALAMIN 500 MCG TAB PO SCH (09:20)
[2020-01-28] MEDS: ONDANSETRON 4 MG/2 ML VIAL IVP PRN (09:22)
[2020-01-28] MEDS: ALVIMOPAN 12 MG CAPSULE PO SCH ×2 (09:22→21:08)
[2020-01-28] MEDS: HEPARIN SODIUM,PORCINE 5,000 UNIT/ML 1 ML VIAL SQ SCH ×2 (09:22→17:17)
[2020-01-28] MEDS: FAMOTIDINE 20 MG/2 ML VIAL IV SCH ×2 (09:22→21:09)
[2020-01-28] MEDS: METOPROLOL TARTRATE 25 MG TAB PO SCH ×2 (09:23→21:08)
[2020-01-28] MEDS: D5-0.45% NACL WITH KCL 20MEQ/L 1,000 ML IV SCH ×2 (09:27→17:15)
[2020-01-28] MEDS: LACTATED RINGERS 1,000 ML IV SCH (10:13)
--- NOTE | 2020-01-28 12:21 | P.PN ---
Subjective Progress Note Date: 01/28/20 Principal diagnosis: Colostomy reversal Patient doing well today. Excellent pain control. Mild nausea and 1 episode of vomiting. White blood cell count 20.8. Objective - Vital Signs Vital signs: Vital Signs Temp 98.2 F 01/28/20 06:09 Pulse 91 01/28/20 06:09 Resp 17 01/28/20 06:09 BP 113/72 01/28/20 06:09 Pulse Ox 94 L 01/28/20 06:09 Intake & Output 01/27/20 01/28/20 01/28/20 18:59 06:59 18:59 Intake Total 1400 Output Total 150 325 Balance 1250 -325 Weight 68.9 kg Intake: IV 1400 Output: Urine 100 325 Estimated Blood Loss 50 Other: Voiding Method Indwelling Catheter Indwelling Catheter Indwelling Catheter # Bowel Movements 0 - Exam Abdomen: Soft, nondistended, mild tenderness, incision clean and dry - Labs CBC & Chem 7: 01/27/20 17:46 01/27/20 17:46 Labs: Abnormal Lab Results - Last 24 Hours (Table) 01/27/20 01/27/20 Range/Units 17:46 17:46 WBC 20.8 H (3.8-10.6) k/uL Neutrophils # 19.3 H (1.3-7.7) k/uL Lymphocytes # 0.7 L (1.0-4.8) k/uL Sodium 134 L (137-145) mmol/L Glucose 241 H (74-99) mg/dL Assessment and Plan (1) Perforation of sigmoid colon due to diverticulitis Narrative/Plan: Patient doing well today. Keep epidural in place. Recheck labs tomorrow. Increase activity. Clear liquids only. Current Visit: No Status: Acute Code(s): K57.20 - DVTRCLI OF LG INT W PERFORATION AND ABSCESS W/O BLEEDING SNOMED Code(s): 8971929526654965
--- NOTE | 2020-01-28 14:23 | P.CONS ---
History of Present Illness - Reason for Consult Consult date: 01/28/20 - History of Present Illness Courtney Castellano, is a 69-year-old female with history of acute diverticulitis with perforation was underwent partial bowel resection with colostomy placement in September 2019, patient is admitted at this time by Dr. Mcgrath for reversal of colostomy. Medical consultation was requested for management in the postoperative period. Currently patient is admitted to the medical floor, she is alert and oriented 3 she had nausea and 1 episode of vomiting this morning, otherwise she denies any complaints there is no fever or chills no headache or dizziness no chest pain no shortness of breath no cough no abdominal pain no diarrhea no blood in the stools no burning with urination no frequency or u rgency and no hematuria. Epidural pain management system is still in place. Past medical history is significant for acute diverticulitis with perforation as above, also significant for history of left breast cancer with history of lumpectomy with chemotherapy and radiation therapy, history of hypertension, history of hyperlipidemia, and history of paroxysmal atrial fibrillation maintained on Eliquis. Past Medical History Past Medical History: Atrial Fibrillation, Cancer, Hyperlipidemia Additional Past Medical History / Comment(s): Do Not Use Left Arm for IV or BP- left breast CA with lumpectomy, radiation and chemo 2002. 09/11/19 Diverticulitis w/ perforation, colostomy; developed AFib w/ RVR, pulmonary edema post-op. History of Any Multi-Drug Resistant Organisms: None Reported Past Surgical History: Bowel Resection, Breast Surgery, Cholecystectomy, Tonsillectomy Additional Past Surgical History / Comment(s): L breast lumpectomy 2002. Gomez proc w/ Colostomy 09/11/19 Past Anesthesia/Blood Transfusion Reactions: Motion Sickness Additional Past Anesthesia/Blood Transfusion Reaction / Comm: Pt has never recieved blood. Smoking Status: Former smoker - Past Family History Father Family Medical History: Myocardial Infarction ([place]) Additional Family Medical History / Comment(s): Father had a [place] in his 60's. He from a post op hip infection at age 73 yrs. no gallbladder disease Mother Family Medical History: Eye Disorder, Hypertension Additional Family Medical History / Comment(s): Mother had glaucoma. She at age 82 yrs. Medications and Allergies Home Medications Medication Instructions Recorded Confirmed Type Simvastatin [Zocor] 20 mg PO HS 07/01/19 01/27/20 History Aspirin/Acetaminophen/Caffeine 1 - 2 tab PO DAILY PRN 09/05/19 01/27/20 History [Excedrin Extra Strength Caplet] Calcium Carbonate [Tums] 500 - 1,000 mg PO QID PRN 09/05/19 01/27/20 History Apixaban [Eliquis] 5 mg PO BID #60 tab 09/20/19 01/26/20 Rx Cyanocobalamin (Vitamin B-12) 1,000 mcg PO DAILY 01/24/20 01/27/20 History [Vitamin B-12] Metoprolol Tartrate [Lopressor] 25 mg PO BID 01/24/20 01/27/20 History Multivitamins, Thera [Multivitamin 1 tab PO Q7D 01/24/20 01/26/20 History (formulary)] Allergies Allergy/AdvReac Type Severity Reaction Status Date / Time bee venom protein (honey bee) Allergy Anaphylaxis Verified 01/26/20 10:09 Physical Exam Vitals: Vital Signs Temp Pulse Pulse Resp BP BP Pulse Ox 01/28/20 12:46 99.2 F 84 16 114/69 96 01/28/20 06:09 98.2 F 91 17 113/72 94 L 01/27/20 23:01 16 01/27/20 20:53 98.3 F 108 H 16 110/73 94 L 01/27/20 19:16 97.5 F L 104 H 18 107/70 97 01/27/20 17:30 85 18 97/49 98 01/27/20 17:00 69 16 104/69 97 01/27/20 16:53 98 01/27/20 16:30 83 18 103/67 98 01/27/20 16:00 79 16 100/64 98 01/27/20 15:20 68 18 122/58 97 01/27/20 15:05 68 16 137/60 97 01/27/20 14:50 56 L 16 152/72 97 01/27/20 14:35 60 16 139/68 97 01/27/20 14:22 98.2 F 58 L 14 143/67 97 Intake and Output 01/27/20 01/28/20 01/28/20 22:59 06:59 14:59 Intake Total 250 Output Total 275 100 Balance -25 -100 Intake: IV 250 Output: Urine 275 100 Other: Voiding Method Indwelling Catheter Indwelling Catheter Indwelling Catheter # Bowel Movements 0 0 Weight 68.9 kg In general patient is alert and oriented 3 in no apparent distress HEENT head normocephalic and atraumatic Neck is supple no JVD no goiter no lymphadenopathy Chest exam reveals a few scattered crackles no wheezing Cardiac exam reveals regular heart sounds S1 and S2 no gallops no murmurs Abdomen is soft nontender no organomegaly with hypoactive bowel sounds Extremity exam reveals no edema no cyanosis or clubbing Neurological examination reveals no gross focal deficit Results CBC & Chem 7: 01/27/20 17:46 01/27/20 17:46 Labs: Abnormal Lab Results - Last 24 Hours (Table) 01/27/20 01/27/20 Range/Units 17:46 17:46 WBC 20.8 H (3.8-10.6) k/uL Neutrophils # 19.3 H (1.3-7.7) k/uL Lymphocytes # 0.7 L (1.0-4.8) k/uL Sodium 134 L (137-145) mmol/L Glucose 241 H (74-99) mg/dL Assessment and Plan Plan: 1. Patient is admitted for colostomy reversal which was performed yesterday by Dr. Mcgrath 2. Underlying history of hypertension maintained on metoprolol will continue 3. Underlying history of hyperlipidemia maintained on Zocor 4. History of paroxysmal atrial fibrillation maintained on Eliquis, at this time Eliquis is on hold, until cleared by surgery to resume, she is maintained on subcu heparin 5. History of diastolic congestive heart failure stable, will monitor closely and avoid fluid overload Will follow during this hospitalization for medical management
[2020-01-28] MEDS: ROPIVACAINE 250 MG, HYDROMORPHONE (PF) 5 MG in SODIUM CHLORIDE 0.9% 200 ML EPIDURAL PRN (17:16)
[2020-01-28] MEDS: METOCLOPRAMIDE 5 MG/ML 2 ML VIAL IVP PRN (17:18)
[2020-01-28] MEDS: ATORVASTATIN 10 MG TAB PO SCH (21:08)
[2020-01-29] MEDS: D5-0.45% NACL WITH KCL 20MEQ/L 1,000 ML IV SCH ×4 (00:32→23:58)
[2020-01-29] MEDS: HEPARIN SODIUM,PORCINE 5,000 UNIT/ML 1 ML VIAL SQ SCH ×4 (00:34→23:57)
[2020-01-29] MEDS: LACTATED RINGERS 1,000 ML IV SCH (05:19)
[2020-01-29 06:13] LABS: Basophils # (A) 0.1 k/uL (0-0.2); Basophils % (A) 1 %; Eosinophils # (A) 0.2 k/uL (0-0.7); Eosinophils % (A) 2 %; HGB 11.7 gm/dL (11.4-16.0); Lymphocytes # (A) 1.6 k/uL (1.0-4.8); Lymphocytes % (A) 12 %; MCH 27.8 pg (25.0-35.0); MCHC 32.5 g/dL (31.0-37.0); MCV 85.4 fL (80.0-100.0); Mean Platelet Volume 7.1; Monocytes # (A) 0.8 k/uL (0-1.0); Monocytes % (A) 6 %; Neutrophils # (A) 11.1 k/uL (1.3-7.7); Neutrophils % (A) 80 %; Platelet Count 220 k/uL (150-450); RBC 4.21 m/uL (3.80-5.40); RDW 13.3 % (11.5-15.5); WBC 13.9 k/uL (3.8-10.6)
[2020-01-29] MEDS: ONDANSETRON 4 MG/2 ML VIAL IVP PRN ×2 (09:14→16:17)
[2020-01-29] MEDS: FAMOTIDINE 20 MG/2 ML VIAL IV SCH ×2 (09:15→20:53)
[2020-01-29] MEDS: CYANOCOBALAMIN 500 MCG TAB PO SCH (09:15)
--- NOTE | 2020-01-29 09:21 | P.PN ---
Progress Note - Text Progress Note Date: 01/29/20 POD #2, S/P Colostomy reversal. Epidural infusing a 7cc/hr with good analgesia. Some nausea noted both yesterday and this am mainly. Zofran given with relief. Insertion site looks ok, without bleeding/inflammation. Will continue current therapy for now, await surgical input, and DC epidural either later today, or tomorrow. Will follow for now.
[2020-01-29 09:45] LABS: African American GFR (CKD) 103.2 (60.0-200.0); Albumin 3.4 g/dL (3.80-4.90); Albumin/Globulin Ratio 1.79 (1.60-3.17); Anion Gap 4.5 mmol/L (4.00-12.00); BUN/Creat Ratio 17.14 Ratio (12.00-20.00); Calcium 8.7 mg/dL (8.7-10.3); Carbon Dioxide 24.5 mmol/L (21.6-31.8); Globulin 1.9 g/dL (1.6-3.3); Potassium 4.6 mmol/L (3.5-5.5); Total Bilirubin 0.8 mg/dL (0.3-1.2); Total Protein 5.3 g/dL (6.2-8.2)
--- NOTE | 2020-01-29 12:00 | P.PN ---
Subjective Progress Note Date: 01/29/20 Principal diagnosis: Colostomy reversal Patient doing well today. Tolerating liquids. No bowel function yet. T-max 99.2. White blood cell count 13.9. Objective - Vital Signs Vital signs: Vital Signs Temp 98.7 F 01/29/20 04:57 Pulse 89 01/29/20 04:57 Resp 16 01/29/20 04:57 BP 118/68 01/29/20 04:57 Pulse Ox 94 L 01/29/20 04:57 Intake & Output 01/28/20 01/29/20 01/29/20 18:59 06:59 18:59 Intake Total 1600 700 Output Total 300 950 Balance 1300 -250 Intake: Intake, IV Titration 1000 Amount D5-0.45% NaCl with KCl 1000 20Meq/l 1,000 ml @ 125 mls/hr IV .Q8H [facility] Rx#: [id number] Oral 600 700 Output: Urine 300 950 Uretheral (Martinez) 300 Other: Voiding Method Indwelling Catheter Indwelling Catheter Indwelling Catheter - Exam Abdomen: Soft, nondistended, dressing clean and dry, minimal tenderness - Labs CBC & Chem 7: 01/29/20 05:56 01/29/20 05:56 Labs: Abnormal Lab Results - Last 24 Hours (Table) 01/29/20 01/29/20 Range/Units 05:56 05:56 WBC 13.9 H (3.8-10.6) k/uL Neutrophils # 11.1 H (1.3-7.7) k/uL Sodium 131 L (135-145) mmol/L Glucose 147 H (70-110) mg/dL AST 37 H (13-35) U/L Total Protein 5.3 L (6.2-8.2) g/dL Albumin 3.40 L (3.80-4.90) g/dL Assessment and Plan (1) Perforation of sigmoid colon due to diverticulitis Narrative/Plan: Patient overall doing well. Patient does not want to advance her diet currently. Keep on clears. Ambulate. Remove epidural tomorrow. Current Visit: No Status: Acute Code(s): K57.20 - DVTRCLI OF LG INT W PERFORATION AND ABSCESS W/O BLEEDING SNOMED Code(s): 1882727932040900
[2020-01-29] MEDS: METOPROLOL TARTRATE 25 MG TAB PO SCH ×2 (12:32→20:52)
[2020-01-29] MEDS: ALVIMOPAN 12 MG CAPSULE PO SCH ×2 (12:32→20:52)
--- NOTE | 2020-01-29 12:42 | P.PN ---
Subjective Progress Note Date: 01/29/20 Courtney Castellano, is a 69-year-old female with history of acute diverticulitis with perforation was underwent partial bowel resection with colostomy placement in September 2019, patient is admitted at this time by Dr. Mcgrath for reversal of colostomy. Medical consultation was requested for management in the po stoperative period. Currently patient is admitted to the medical floor, she is alert and oriented 3 she had nausea and 1 episode of vomiting this morning, otherwise she denies any complaints there is no fever or chills no headache or dizziness no chest pain no shortness of breath no cough no abdominal pain no diarrhea no blood in the stools no burning with urination no frequency or urgency and no hematuria. Epidural pain management system is still in place. Past medical history is significant for acute diverticulitis with perforation as above, also significant for history of left breast cancer with history of lumpectomy with chemotherapy and radiation therapy, history of hypertension, his tory of hyperlipidemia, and history of paroxysmal atrial fibrillation maintained on Eliquis. On 01/29/2020 patient was seen and examined on the medical floor she is alert and oriented 3 in no apparent distress she is receiving clear liquid diet, she has not passed any gas or had any bowel movements, bowel sounds are still sluggish, otherwise she denies any complaints there is no fever or chills no headache or dizziness no chest pain no shortness of breath no cough no nausea or vomiting no abdominal pain no diarrhea no blood in the stools no burning with urination no frequency or urgency and no hematuria Objective - Vital Signs Vital signs: Vital Signs Temp 98.7 F 01/29/20 04:57 Pulse 89 01/29/20 04:57 Resp 16 01/29/20 04:57 BP 118/68 01/29/20 04:57 Pulse Ox 94 L 01/29/20 04:57 Intake & Output 01/28/20 01/29/20 01/29/20 18:59 06:59 18:59 Intake Total 1600 700 Output Total 300 950 Balance 1300 -250 Intake: Intake, IV Titration 1000 Amount D5-0.45% NaCl with KCl 1000 20Meq/l 1,000 ml @ 125 mls/hr IV .Q8H [facility] Rx#: [id number] Oral 600 700 Output: Urine 300 950 Uretheral (Martinez) 300 Other: Voiding Method Indwelling Catheter Indwelling Catheter Indwelling Catheter - Exam In general patient is alert and oriented 3 in no apparent distress HEENT head normocephalic and atraumatic Neck is supple no JVD no goiter no lymphadenopathy Chest exam reveals a few scattered crackles no wheezing Cardiac exam reveals regular heart sounds S1 and S2 no gallops no murmurs Abdomen is soft nontender no organomegaly with hypoactive bowel sounds Extremity exam reveals no edema no cyanosis or clubbing Neurological examination reveals no gross focal deficit - Labs CBC & Chem 7: 01/29/20 05:56 01/29/20 05:56 Labs: Abnormal Lab Results - Last 24 Hours (Table) 01/29/20 01/29/20 Range/Units 05:56 05:56 WBC 13.9 H (3.8-10.6) k/uL Neutrophils # 11.1 H (1.3-7.7) k/uL Sodium 131 L (135-145) mmol/L Glucose 147 H (70-110) mg/dL AST 37 H (13-35) U/L Total Protein 5.3 L (6.2-8.2) g/dL Albumin 3.40 L (3.80-4.90) g/dL Assessment and Plan Plan: 1. Patient is admitted for colostomy reversal which was performed yesterday by Dr. Mcgrath 2. Underlying history of hypertension maintained on metoprolol will continue 3. Underlying history of hyperlipidemia maintained on Zocor 4. History of paroxysmal atrial fibrillation maintained on Eliquis, at this time Eliquis is on hold, until cleared by surgery to resume, she is maintained on subcu heparin 5. History of diastolic congestive heart failure stable, will monitor closely and avoid fluid overload Will follow during this hospitalization for medical management
[2020-01-29] MEDS: METOCLOPRAMIDE 5 MG/ML 2 ML VIAL IVP PRN (19:50)
[2020-01-29] MEDS: ATORVASTATIN 10 MG TAB PO SCH (20:52)
[2020-01-29] MEDS: ROPIVACAINE 250 MG, HYDROMORPHONE (PF) 5 MG in SODIUM CHLORIDE 0.9% 200 ML EPIDURAL PRN (23:57)
[2020-01-30 05:07] LABS: Basophils % (A) 0 %; Eosinophils # (A) 0.6 k/uL (0-0.7); Eosinophils % (A) 6 %; HCT 34.7 % (34.0-46.0); HGB 11.5 gm/dL (11.4-16.0); Lymphocytes % (A) 19 %; MCH 28.4 pg (25.0-35.0); MCHC 33.2 g/dL (31.0-37.0); MCV 85.5 fL (80.0-100.0); Mean Platelet Volume 6.8; Monocytes # (A) 0.7 k/uL (0-1.0); Monocytes % (A) 7 %; Neutrophils # (A) 7.1 k/uL (1.3-7.7); Neutrophils % (A) 68 %; Platelet Count 206 k/uL (150-450); RBC 4.06 m/uL (3.80-5.40); RDW 13.4 % (11.5-15.5); WBC 10.5 k/uL (3.8-10.6)
[2020-01-30] MEDS: D5-0.45% NACL WITH KCL 20MEQ/L 1,000 ML IV SCH ×3 (06:05→21:43)
[2020-01-30] MEDS: LACTATED RINGERS 1,000 ML IV SCH (06:05)
--- NOTE | 2020-01-30 06:13 | P.PN ---
Progress Note - Text Progress Note Date: 01/30/20 POD #3. Epidural catheter has worked very well, infusing without incident, good analgesia. Site looks ok, without signs of bleeding or inflammation. Order written to remove catheter today, and contact Surgery to obtain alternative pain medication orders prn. Discussed with nursing. Will re-eval prn.
[2020-01-30] MEDS: METOCLOPRAMIDE 5 MG/ML 2 ML VIAL IVP PRN ×2 (07:44→14:25)
[2020-01-30] MEDS: FAMOTIDINE 20 MG/2 ML VIAL IV SCH ×2 (07:44→20:48)
[2020-01-30] MEDS: CYANOCOBALAMIN 500 MCG TAB PO SCH (07:45)
[2020-01-30] MEDS: METOPROLOL TARTRATE 25 MG TAB PO SCH ×2 (07:45→20:48)
[2020-01-30] MEDS: ALVIMOPAN 12 MG CAPSULE PO SCH ×2 (07:45→20:49)
[2020-01-30] MEDS: HEPARIN SODIUM,PORCINE 5,000 UNIT/ML 1 ML VIAL SQ SCH ×3 (07:45→23:14)
[2020-01-30] MEDS ORDERED: HYDROcodone/APAP 5-325MG 1 EACH TAB PO PRN (08:43)
--- NOTE | 2020-01-30 09:07 | P.PN ---
Subjective Progress Note Date: 01/30/20 CHIEF COMPLAINT: History of perforated diverticulitis HISTORY OF PRESENT ILLNESS: Patient seen and examined with Dr. rhoades. Patient is status post reversal of colostomy, lysis of adhesions and partial omentectomy. Patient is afebrile. She is tolerating a clear liquid diet. She denies passing any gas or bowel movement. Denies any nausea or vomiting. Epidural and Martinez catheter scheduled to be discontinued today. PHYSICAL EXAM: VITAL SIGNS: Reviewed. GENERAL: Well-developed in no acute distress. HEENT: No sclera icterus. Extraocular movements grossly intact. Moist buccal mucosa. Head is atraumatic, normocephalic. ABDOMEN: Soft. Nondistended. Dressing minimal blood noted NEUROLOGIC: Alert and oriented. Cranial nerves II through XII grossly intact. ASSESSMENT: 1. History of perforated diverticulitis status post reversal of colostomy, lysis of adhesions and partial omentectomy PLAN: -Discontinue epidural and Martinez catheter today -Place patient on Dilaudid 1 mg IV every 3 hours as needed for pain and [place] 5/325 one by mouth every 6 hours as needed for pain -Continue clear liquid diet -Encourage patient to walk and use incentive spirometer -Continue to keep Eliquis on hold until patient's bowel functions have returned -DVT prophylaxis subcu heparin Physician Heart Surgeon note has been reviewed by physician. Signing provider agrees with the documented findings, assessment, and plan of care. Objective - Vital Signs Vital signs: Vital Signs Temp 98.5 F 01/30/20 05:53 Pulse 85 01/30/20 05:53 Resp 17 01/30/20 05:53 BP 132/78 01/30/20 05:53 Pulse Ox 95 01/30/20 05:53 Intake & Output 01/29/20 01/30/20 01/30/20 18:59 06:59 18:59 Intake Total 1400 1589.783 Output Total 1225 1775 Balance 175 -185.217 Intake: Intake, IV Titration 1000 1589.783 Amount D5-0.45% NaCl with KCl 1000 1375 20Meq/l 1,000 ml @ 125 mls/hr IV .Q8H [facility] Rx#: [id number] Ropivacaine 250 mg 214.783 Hydromorphone (Pf) 5 mg In Sodium Chloride 0.9% 200 ml @ Per Protocol EPIDURAL .Q0M PRN Rx#: [id number] Oral 400 Output: Urine 1225 1775 Uretheral (Martinez) 1225 Other: Voiding Method Indwelling Catheter Indwelling Catheter Indwelling Catheter - Labs CBC & Chem 7: 01/30/20 04:51 01/29/20 05:56 Labs: Abnormal Lab Results - Last 24 Hours (Table) 01/29/20 Range/Units 05:56 Sodium 131 L (135-145) mmol/L Glucose 147 H (70-110) mg/dL AST 37 H (13-35) U/L Total Protein 5.3 L (6.2-8.2) g/dL Albumin 3.40 L (3.80-4.90) g/dL
[2020-01-30 09:24] LABS: African American GFR (CKD) 108.5 (60.0-200.0); Albumin 3.2 g/dL (3.80-4.90); Albumin/Globulin Ratio 1.88 (1.60-3.17); Anion Gap 7.1 mmol/L (4.00-12.00); Calcium 8.7 mg/dL (8.7-10.3); Carbon Dioxide 25.9 mmol/L (21.6-31.8); Globulin 1.7 g/dL (1.6-3.3); Non-African American GFR(CKD) 93.7 (60.0-200.0); Potassium 4.4 mmol/L (3.5-5.5); Total Bilirubin 0.6 mg/dL (0.2-1.2); Total Protein 4.9 g/dL (6.2-8.2)
[2020-01-30] MEDS: ONDANSETRON 4 MG/2 ML VIAL IVP PRN ×2 (12:01→20:48)
[2020-01-30] MEDS: HYDROmorphone 1 MG/ML 1 ML SYRINGE IVP PRN ×2 (14:25→20:48)
--- NOTE | 2020-01-30 18:20 | P.PN ---
Subjective Progress Note Date: 01/30/20 Courtney Castellano, is a 69-year-old female with history of acute diverticulitis with perforation was underwent partial bowel resection with colostomy placement in September 2019, patient is admitted at this time by Dr. Mcgrath for reversal of colostomy. Medical consultation was requested for management in the po stoperative period. Currently patient is admitted to the medical floor, she is alert and oriented 3 she had nausea and 1 episode of vomiting this morning, otherwise she denies any complaints there is no fever or chills no headache or dizziness no chest pain no shortness of breath no cough no abdominal pain no diarrhea no blood in the stools no burning with urination no frequency or urgency and no hematuria. Epidural pain management system is still in place. Past medical history is significant for acute diverticulitis with perforation as above, also significant for history of left breast cancer with history of lumpectomy with chemotherapy and radiation therapy, history of hypertension, his tory of hyperlipidemia, and history of paroxysmal atrial fibrillation maintained on Eliquis. On 01/29/2020 patient was seen and examined on the medical floor she is alert and oriented 3 in no apparent distress she is receiving clear liquid diet, she has not passed any gas or had any bowel movements, bowel sounds are still sluggish, otherwise she denies any complaints there is no fever or chills no headache or dizziness no chest pain no shortness of breath no cough no nausea or vomiting no abdominal pain no diarrhea no blood in the stools no burning with urination no frequency or urgency and no hematuria On 01/30/2020 patient was seen and examined on the medical floor she is alert and oriented 3 in no apparent distress she is still complaining of abdominal pain and nausea she has not passed any gas or any stools since surgery otherwise she denies any complaints there is no fever or chills no headache or dizziness no chest pain no shortness of breath no cough no vomiting no diarrhea no blood in the stools no burning with urination no frequency or urgency and no hematuria Objective - Vital Signs Vital signs: Vital Signs Temp 99.1 F 01/30/20 15:00 Pulse 85 01/30/20 15:00 Resp 16 01/30/20 15:00 BP 144/78 01/30/20 15:00 Pulse Ox 97 01/30/20 15:00 Intake & Output 01/29/20 01/30/20 01/30/20 18:59 06:59 18:59 Intake Total 1400 1589.783 Output Total 1225 1775 1900 Balance 175 -185.217 -1900 Intake: Intake, IV Titration 1000 1589.783 Amount D5-0.45% NaCl with KCl 1000 1375 20Meq/l 1,000 ml @ 125 mls/hr IV .Q8H [facility] Rx#: [id number] Ropivacaine 250 mg 214.783 Hydromorphone (Pf) 5 mg In Sodium Chloride 0.9% 200 ml @ Per Protocol EPIDURAL .Q0M PRN Rx#: [id number] Oral 400 Output: Urine 1225 1775 1900 Uretheral (Martinez) 1225 1700 Other: Voiding Method Indwelling Catheter Indwelling Catheter Toilet - Exam In general patient is alert and oriented 3 in no apparent distress HEENT head normocephalic and atraumatic Neck is supple no JVD no goiter no lymphadenopathy Chest exam reveals a few scattered crackles no wheezing Cardiac exam reveals regular heart sounds S1 and S2 no gallops no murmurs Abdomen is soft nontender no organomegaly with hypoactive bowel sounds Extremity exam reveals no edema no cyanosis or clubbing Neurological examination reveals no gross focal deficit - Labs CBC & Chem 7: 01/30/20 04:51 01/30/20 04:51 Labs: Abnormal Lab Results - Last 24 Hours (Table) 01/30/20 Range/Units 04:51 BUN 6.0 L (9.0-27.0) mg/dL BUN/Creatinine Ratio 10.00 L (12.00-20.00) Ratio Total Protein 4.9 L (6.2-8.2) g/dL Albumin 3.20 L (3.80-4.90) g/dL Assessment and Plan Plan: 1. Patient is admitted for colostomy reversal which was performed yesterday by Dr. Mcgrath 2. Underlying history of hypertension maintained on metoprolol will continue 3. Underlying history of hyperlipidemia maintained on Zocor 4. History of paroxysmal atrial fibrillation maintained on Eliquis, at this time Eliquis is on hold, until cleared by surgery to resume, she is maintained on subcu heparin 5. History of diastolic congestive heart failure stable, will monitor closely and avoid fluid overload Will follow during this hospitalization for medical management
[2020-01-30] MEDS: ATORVASTATIN 10 MG TAB PO SCH (20:48)
[2020-01-31] MEDS: METOCLOPRAMIDE 5 MG/ML 2 ML VIAL IVP PRN (01:09)
[2020-01-31] MEDS: D5-0.45% NACL WITH KCL 20MEQ/L 1,000 ML IV SCH ×3 (04:44→21:02)
[2020-01-31] MEDS: ONDANSETRON 4 MG/2 ML VIAL IVP PRN (07:00)
[2020-01-31] MEDS: CYANOCOBALAMIN 500 MCG TAB PO SCH (09:37)
[2020-01-31] MEDS: ALVIMOPAN 12 MG CAPSULE PO SCH ×2 (09:37→20:28)
[2020-01-31] MEDS: HEPARIN SODIUM,PORCINE 5,000 UNIT/ML 1 ML VIAL SQ SCH ×2 (09:37→17:34)
[2020-01-31] MEDS: FAMOTIDINE 20 MG/2 ML VIAL IV SCH ×2 (09:37→21:01)
[2020-01-31] MEDS: METOPROLOL TARTRATE 25 MG TAB PO SCH ×2 (09:38→21:02)
[2020-01-31] MEDS: LACTATED RINGERS 1,000 ML IV SCH (09:40)
[2020-01-31 10:11] LABS: Basophils % (A) 0 %; Eosinophils # (A) 0.5 k/uL (0-0.7); Eosinophils % (A) 4 %; HCT 37.5 % (34.0-46.0); HGB 12.2 gm/dL (11.4-16.0); Lymphocytes # (A) 1.2 k/uL (1.0-4.8); Lymphocytes % (A) 9 %; MCH 27.6 pg (25.0-35.0); MCHC 32.6 g/dL (31.0-37.0); MCV 84.7 fL (80.0-100.0); Mean Platelet Volume 7.8; Monocytes # (A) 0.9 k/uL (0-1.0); Monocytes % (A) 7 %; Neutrophils # (A) 10.6 k/uL (1.3-7.7); Neutrophils % (A) 80 %; Platelet Count 281 k/uL (150-450); RBC 4.42 m/uL (3.80-5.40); RDW 13.5 % (11.5-15.5); WBC 13.3 k/uL (3.8-10.6)
[2020-01-31 11:53] VITALS: RESP 16
--- NOTE | 2020-01-31 12:05 | P.PN ---
Subjective Progress Note Date: 01/31/20 CHIEF COMPLAINT: History of perforated diverticulitis HISTORY OF PRESENT ILLNESS: Patient seen and examined with Dr. Mcgrath. Patient is status post reversal of colostomy, lysis of adhesions and partial omentectomy. Patient had temperature 100.9 last night. She is now 99.7. WBC is 13.3 she did have one episode of vomiting this morning. She is having bowel movements. She is requesting advancement of diet. PHYSICAL EXAM: VITAL SIGNS: Reviewed. GENERAL: Well-developed in no acute distress. HEENT: No sclera icterus. Extraocular movements grossly intact. Moist buccal mucosa. Head is atraumatic, normocephalic. ABDOMEN: Soft. Nondistended. Incision site clean dry and intact. NEUROLOGIC: Alert and oriented. Cranial nerves II through XII grossly intact. ASSESSMENT: 1. History of perforated diverticulitis status post reversal of colostomy, lysis of adhesions and partial omentectomy PLAN: -Advance diet to full liquid -Encourage patient to walk and use incentive spirometer -DVT prophylaxis subcu heparin Physician Robotics Technologist note has been reviewed by physician. Signing provider agrees with the documented findings, assessment, and plan of care. Objective - Vital Signs Vital signs: Vital Signs Temp 98.5 F 01/31/20 11:53 Pulse 85 01/31/20 11:53 Resp 16 01/31/20 11:53 BP 142/83 01/31/20 11:53 Pulse Ox 96 01/31/20 11:53 Intake & Output 01/30/20 01/31/20 01/31/20 18:59 06:59 18:59 Intake Total 1375 Output Total 1900 Balance -1900 1375 Intake: Intake, IV Titration 1375 Amount D5-0.45% NaCl with KCl 1375 20Meq/l 1,000 ml @ 125 mls/hr IV .Q8H [facility] Rx#: [id number] Output: Urine 1900 Uretheral (Martinez) 1700 Other: Voiding Method Toilet Toilet Toilet # Voids 1 1 - Labs CBC & Chem 7: 01/31/20 09:27 01/30/20 04:51 Labs: Abnormal Lab Results - Last 24 Hours (Table) 01/31/20 Range/Units 09:27 WBC 13.3 H (3.8-10.6) k/uL Neutrophils # 10.6 H (1.3-7.7) k/uL
[2020-01-31 13:08] VITALS: BMI 24.5
--- NOTE | 2020-01-31 18:21 | P.PN ---
Subjective Progress Note Date: 01/31/20 Courtney Castellano, is a 69-year-old female with history of acute diverticulitis with perforation was underwent partial bowel resection with colostomy placement in September 2019, patient is admitted at this time by Dr. Mcgrath for reversal of colostomy. Medical consultation was requested for management in the po stoperative period. Currently patient is admitted to the medical floor, she is alert and oriented 3 she had nausea and 1 episode of vomiting this morning, otherwise she denies any complaints there is no fever or chills no headache or dizziness no chest pain no shortness of breath no cough no abdominal pain no diarrhea no blood in the stools no burning with urination no frequency or urgency and no hematuria. Epidural pain management system is still in place. Past medical history is significant for acute diverticulitis with perforation as above, also significant for history of left breast cancer with history of lumpectomy with chemotherapy and radiation therapy, history of hypertension, his tory of hyperlipidemia, and history of paroxysmal atrial fibrillation maintained on Eliquis. On 01/29/2020 patient was seen and examined on the medical floor she is alert and oriented 3 in no apparent distress she is receiving clear liquid diet, she has not passed any gas or had any bowel movements, bowel sounds are still sluggish, otherwise she denies any complaints there is no fever or chills no headache or dizziness no chest pain no shortness of breath no cough no nausea or vomiting no abdominal pain no diarrhea no blood in the stools no burning with urination no frequency or urgency and no hematuria On 01/30/2020 patient was seen and examined on the medical floor she is alert and oriented 3 in no apparent distress she is still complaining of abdominal pain and nausea she has not passed any gas or any stools since surgery otherwise she denies any complaints there is no fever or chills no headache or dizziness no chest pain no shortness of breath no cough no vomiting no diarrhea no blood in the stools no burning with urination no frequency or urgency and no hematuria. on 01/31/2020 patient was seen and examined on the medical floor she is alert and oriented 3 she is feeling better pain in the abdomen has improved there is no fever or chills no headache or dizziness no chest pain no shortness of breath no cough no nausea or vomiting no abdominal pain no diarrhea no burning with urination no frequency or urgency no hematuria Objective - Vital Signs Vital signs: Vital Signs Temp 98.5 F 01/31/20 11:53 Pulse 85 01/31/20 11:53 Resp 16 01/31/20 11:53 BP 142/83 01/31/20 11:53 Pulse Ox 96 01/31/20 11:53 Intake & Output 01/30/20 01/31/20 01/31/20 18:59 06:59 18:59 Intake Total 1375 Output Total 1900 Balance -1900 1375 Weight 68.9 kg Intake: Intake, IV Titration 1375 Amount D5-0.45% NaCl with KCl 1375 20Meq/l 1,000 ml @ 125 mls/hr IV .Q8H [facility] Rx#: [id number] Output: Urine 1900 Uretheral (Martinez) 1700 Other: Voiding Method Toilet Toilet Toilet # Voids 1 1 - Exam In general patient is alert and oriented 3 in no apparent distress HEENT head normocephalic and atraumatic Neck is supple no JVD no goiter no lymphadenopathy Chest exam reveals a few scattered crackles no wheezing Cardiac exam reveals regular heart sounds S1 and S2 no gallops no murmurs Abdomen is soft nontender no organomegaly with hypoactive bowel sounds Extremity exam reveals no edema no cyanosis or clubbing Neurological examination reveals no gross focal deficit - Labs CBC & Chem 7: 01/31/20 09:27 01/30/20 04:51 Labs: Abnormal Lab Results - Last 24 Hours (Table) 01/31/20 Range/Units 09: WBC 13.3 H (3.8-10.6) k/uL Neutrophils # 10.6 H (1.3-7.7) k/uL Assessment and Plan Plan: 1. Patient is admitted for colostomy reversal which was performed yesterday by Dr. Mcgrath 2. Underlying history of hypertension maintained on metoprolol will continue 3. Underlying history of hyperlipidemia maintained on Zocor 4. History of paroxysmal atrial fibrillation maintained on Eliquis, at this time Eliquis is on hold, until cleared by surgery to resume, she is maintained on subcu heparin 5. History of diastolic congestive heart failure stable, will monitor closely and avoid fluid overload Will follow during this hospitalization for medical management
[2020-01-31] MEDS: ATORVASTATIN 10 MG TAB PO SCH (21:02)
[2020-02-01] MEDS: HEPARIN SODIUM,PORCINE 5,000 UNIT/ML 1 ML VIAL SQ SCH ×2 (00:24→08:46)
[2020-02-01] MEDS: ONDANSETRON 4 MG/2 ML VIAL IVP PRN (03:06)
[2020-02-01] MEDS: D5-0.45% NACL WITH KCL 20MEQ/L 1,000 ML IV SCH (03:41)
[2020-02-01] MEDS: LACTATED RINGERS 1,000 ML IV SCH (05:08)
[2020-02-01 05:29] LABS: Basophils # (A) 0.1 k/uL (0-0.2); Basophils % (A) 1 %; Eosinophils # (A) 0.7 k/uL (0-0.7); Eosinophils % (A) 7 %; HCT 35.3 % (34.0-46.0); HGB 11.4 gm/dL (11.4-16.0); Lymphocytes # (A) 1.4 k/uL (1.0-4.8); Lymphocytes % (A) 15 %; MCH 27.9 pg (25.0-35.0); MCHC 32.2 g/dL (31.0-37.0); MCV 86.5 fL (80.0-100.0); Mean Platelet Volume 8.2; Monocytes # (A) 0.7 k/uL (0-1.0); Monocytes % (A) 7 %; Neutrophils # (A) 6.6 k/uL (1.3-7.7); Neutrophils % (A) 69 %; Platelet Count 284 k/uL (150-450); RBC 4.08 m/uL (3.80-5.40); RDW 13.6 % (11.5-15.5); WBC 9.6 k/uL (3.8-10.6)
[2020-02-01] MEDS: METOPROLOL TARTRATE 25 MG TAB PO SCH (08:46)
[2020-02-01] MEDS: FAMOTIDINE 20 MG/2 ML VIAL IV SCH (08:47)
[2020-02-01] MEDS: CYANOCOBALAMIN 500 MCG TAB PO SCH (08:47)
[2020-02-01] MEDS ORDERED: MULTIVITAMINS, THERA 1 EACH TAB PO SCH (09:00)
[2020-02-01 12:39] VITALS: BP 150/83; PULSE 65; TEMP 98.2
--- NOTE | 2020-02-01 13:32 | P.DS ---
Providers Date of admission: 01/27/20 09:05 Expected date of discharge: 02/01/20 Attending physician: Den Mcgrath Consults: 01/27/20 14:24 Consult Physician Routine Consulting Provider: Leslie Estrada Consult Reason/Comments: medical management Do you want consulting provider notified?: Yes Primary care physician: Leslie Estrada [place] [facility] Course: Discharge diagnosis 1. History of perforated diverticulitis status post reversal of colostomy, lysis of adhesions and partial omentectomy Hospital course This a 61-year-old female with a previous history of perforated diverticulitis. She is now status post reversal of colostomy, lysis of adhesions and partial omentectomy. She tolerated surgery well. She tolerated advancement of diet. She is having bowel movements. She is up and ambulating. She is afebrile. She is stable for discharge. Physician Porcelain Technician note has been reviewed by physician. Signing provider agrees with the documented findings, assessment, and plan of care. Patient Condition at Discharge: Stable Plan - Discharge Summary Discharge Rx Participant: No New Discharge Prescriptions: New Docusate [Colace] 100 mg PO BID #30 capsule Hydrocodone/Acetaminophen [[place] 5-325] 1 tab PO Q6HR PRN 3 Days #12 tab PRN Reason: Pain Continue Simvastatin [Zocor] 20 mg PO HS Calcium Carbonate [Tums] 500 - 1,000 mg PO QID PRN PRN Reason: Heartburn Aspirin/Acetaminophen/Caffeine [Excedrin Extra Strength Caplet] 1 - 2 tab PO DAILY PRN PRN Reason: Migraine Headache Apixaban [Eliquis] 5 mg PO BID #60 tab Multivitamins, Thera [Multivitamin (formulary)] 1 tab PO Q7D Cyanocobalamin (Vitamin B-12) [Vitamin B-12] 1,000 mcg PO DAILY Metoprolol Tartrate [Lopressor] 25 mg PO BID Discharge Medication List Simvastatin [Zocor] 20 mg PO HS 07/01/19 [History] Aspirin/Acetaminophen/Caffeine [Excedrin Extra Strength Caplet] 1 - 2 tab PO DAILY PRN 09/05/19 [History] Calcium Carbonate [Tums] 500 - 1,000 mg PO QID PRN 09/05/19 [History] Apixaban [Eliquis] 5 mg PO BID #60 tab 09/20/19 [Rx] Cyanocobalamin (Vitamin B-12) [Vitamin B-12] 1,000 mcg PO DAILY 01/24/20 [History] Metoprolol Tartrate [Lopressor] 25 mg PO BID 01/24/20 [History] Multivitamins, Thera [Multivitamin (formulary)] 1 tab PO Q7D 01/24/20 [History] Docusate [Colace] 100 mg PO BID #30 capsule 02/01/20 [Rx] Hydrocodone/Acetaminophen [[place] 5-325] 1 tab PO Q6HR PRN 3 Days #12 tab 02/01/20 [Rx] Follow up Appointment(s)/Referral(s): Den Mcgrath MD [STAFF PHYSICIAN] - 1 Week Leslie Estrada MD [Primary Care Provider] - 1 Week Activity/Diet/Wound Care/Special Instructions: No driving while taking [place] No lifting over 10 pounds You may shower. No soaking or tub baths for 2 weeks Very light activity until you are reevaluated at your follow up appointment with your surgeon Diet regular Discharge Disposition: HOME SELF-CARE
--- NOTE | 2020-02-01 17:32 | P.PN ---
Subjective Progress Note Date: 02/01/20 Courtney Castellano, is a 69-year-old female with history of acute diverticulitis with perforation was underwent partial bowel resection with colostomy placement in September 2019, patient is admitted at this time by Dr. Mcgrath for reversal of colostomy. Medical consultation was requested for management in the po stoperative period. Currently patient is admitted to the medical floor, she is alert and oriented 3 she had nausea and 1 episode of vomiting this morning, otherwise she denies any complaints there is no fever or chills no headache or dizziness no chest pain no shortness of breath no cough no abdominal pain no diarrhea no blood in the stools no burning with urination no frequency or urgency and no hematuria. Epidural pain management system is still in place. Past medical history is significant for acute diverticulitis with perforation as above, also significant for history of left breast cancer with history of lumpectomy with chemotherapy and radiation therapy, history of hypertension, his tory of hyperlipidemia, and history of paroxysmal atrial fibrillation maintained on Eliquis. On 01/29/2020 patient was seen and examined on the medical floor she is alert and oriented 3 in no apparent distress she is receiving clear liquid diet, she has not passed any gas or had any bowel movements, bowel sounds are still sluggish, otherwise she denies any complaints there is no fever or chills no headache or dizziness no chest pain no shortness of breath no cough no nausea or vomiting no abdominal pain no diarrhea no blood in the stools no burning with urination no frequency or urgency and no hematuria On 01/30/2020 patient was seen and examined on the medical floor she is alert and oriented 3 in no apparent distress she is still complaining of abdominal pain and nausea she has not passed any gas or any stools since surgery otherwise she denies any complaints there is no fever or chills no headache or dizziness no chest pain no shortness of breath no cough no vomiting no diarrhea no blood in the stools no burning with urination no frequency or urgency and no hematuria. on 01/31/2020 patient was seen and examined on the medical floor she is alert and oriented 3 she is feeling better pain in the abdomen has improved there is no fever or chills no headache or dizziness no chest pain no shortness of breath no cough no nausea or vomiting no abdominal pain no diarrhea no burning with urination no frequency or urgency no hematuria. On 02/01/2020 patient was seen and examined on the medical floor she is alert and oriented 3 in no apparent distress she is passing gas and having bowel movements there is no fever or chills no headache or dizziness no chest pain no shortness of breath no cough no nausea or vomiting no abdominal pain no diarrhea no blood in the stools. Patient was evaluated by surgery and is scheduled for discharge to home today Objective - Vital Signs Vital signs: Vital Signs Temp 98.1 F 02/01/20 04:56 Pulse 85 02/01/20 04:56 Resp 16 02/01/20 04:56 BP 162/92 02/01/20 04:56 Pulse Ox 98 02/01/20 04:56 Intake & Output 01/31/20 02/01/20 02/01/20 18:59 06:59 18:59 Intake Total 1000 1415 Balance 1000 1415 Weight 68.9 kg Intake: Intake, IV Titration 1000 1125 Amount D5-0.45% NaCl with KCl 1000 1125 20Meq/l 1,000 ml @ 125 mls/hr IV .Q8H [facility] Rx#: [id number] Oral 290 Other: Voiding Method Toilet Toilet # Voids 1 1 # Bowel Movements 1 - Exam In general patient is alert and oriented 3 in no apparent distress HEENT head normocephalic and atraumatic Neck is supple no JVD no goiter no lymphadenopathy Chest exam reveals a few scattered crackles no wheezing Cardiac exam reveals regular heart sounds S1 and S2 no gallops no murmurs Abdomen is soft nontender no organomegaly with hypoactive bowel sounds Extremity exam reveals no edema no cyanosis or clubbing Neurological examination reveals no gross focal deficit - Labs CBC & Chem 7: 02/01/20 04:41 01/30/20 04:51 Labs: Abnormal Lab Results - Last 24 Hours (Table) 01/31/20 Range/Units 09:27 WBC 13.3 H (3.8-10.6) k/uL Neutrophils # 10.6 H (1.3-7.7) k/uL Assessment and Plan Plan: 1. Patient is admitted for colostomy reversal which was performed yesterday by Dr. Mcgrath 2. Underlying history of hypertension maintained on metoprolol will continue 3. Underlying history of hyperlipidemia maintained on Zocor 4. History of paroxysmal atrial fibrillation maintained on Eliquis, at this time Eliquis is on hold, until cleared by surgery to resume, she is maintained on subcu heparin 5. History of diastolic congestive heart failure stable, will monitor closely and avoid fluid overload Will follow during this hospitalization for medical management
== END 2020-02-01 14:12 | disposition home or self-care (01) | DRG 330 ==
LOC: 2ORMAIN 09:05 → 6NMEDSUR 14:44
PROVIDERS: ADMIT Surgery; ATTEND Surgery
DX: Z43.3 Encounter for attention to colostomy (principal); I50.32 Chronic diastolic (congestive) heart failure; I11.0 Hypertensive heart disease with heart failure; I48.0 Paroxysmal atrial fibrillation; E78.5 Hyperlipidemia, unspecified; R11.2 Nausea with vomiting, unspecified; G43.909 Migraine, unspecified, not intractable, without status migrainosus; K21.9 Gastro-esophageal reflux disease without esophagitis; Z71.3 Dietary counseling and surveillance; Z79.01 Long term (current) use of anticoagulants; Z79.899 Other long term (current) drug therapy; Z87.19 Personal history of other diseases of the digestive system; Z85.3 Personal history of malignant neoplasm of breast; Z92.3 Personal history of irradiation; Z92.21 Personal history of antineoplastic chemotherapy; Z90.49 Acquired absence of other specified parts of digestive tract; Z98.890 Other specified postprocedural states; Z87.891 Personal history of nicotine dependence; Z91.030 Bee allergy status; Z82.49 Family history of ischemic heart disease and other diseases of the circulatory system; Z83.511 Family history of glaucoma
CPT/HCPCS: 80048; 80053; 85025; 86850; 86900; 86901; 88304; 88309; 94760

== ENCOUNTER → 2020-07-19 | Outpatient (CLI) | payer MEDICARE, OTHER ==
--- NOTE | 2020-07-20 08:06 | BD ---
EXAMINATION TYPE: Axial Bone Density DATE OF EXAM: 07/19/2020 COMPARISON: NONE CLINICAL HISTORY: Height: 5 FT 6 1/2 IN Weight: 170 FRAX RISK QUESTIONS: Alcohol (3 or more units per day): NO Family History (Parent hip fracture): UNSURE Glucocorticoids (More than 3mos): NO (Ex: prednisone, prednisolone, methylprednisolone, dexamethasone, and hydrocortisone). History of Fracture in Adulthood: NO Secondary Osteoporosis: 1. Type 1 Diabetes: NO 2. Hyperthyroidism: NO 3. Menopause before 45: NO 4. Malnutrition: NO 5. Chronic liver disease: NO Rheumatoid Arthritis: NO Current Tobacco Use: NO RISK FACTORS HISTORY OF: Surgery to Spine/Hip(right/left)/Wrist (right/left): NO Family History of Osteoporosis: NO Active: YES Diet low in dairy products/other sources of calcium: NO Postmenopausal woman: AGE 49If Premenopausal, do you have irregular periods: Take estrogen and/or progesterone medications: NONE Lost more than 2 inches in height since high school: NO MEDICATIONS: Additional Medications: METOPROLOL, ELOQUIS, SIMVASTATIN, Additional History: BREAST CANCER 2000 CHEMO AND RADIATION EXAM MEASUREMENTS: Bone mineral densitometry was performed using the [employer] System. Bone mineral density as measured about the Lumbar spine is: ----- L1-L4(G/cm2): 1.350 T Score Values are as follows: ----- L2: 0.6 ----- L3: 1.8 ----- L4: 2.0 ----- L1-L4: 1.4 BASELINE Bone mineral density about the R hip (g/cm2): 0.882 Bone mineral density about the L hip (g/cm2): 0.847 T Score values are as follows: -----R Neck: -1.1 -----L Neck: -1.4 -----R Total: -0.6 -----L Total: -0.7 BASELINE IMPRESSION: Osteopenia (T Score between -2.5 and -1). There is slightly increased risk of fracture and the patient may be considered for treatment. Re-Screen 2-5 years. NOTE: T-SCORE=SD OF THE YOUNG ADULT MEAN.
== END ==
LOC: RADBDWWP 07:45
PROVIDERS: ATTEND Internal Medicine
DX: M85.89 Other specified disorders of bone density and structure, multiple sites (principal)
CPT/HCPCS: 77080

== ENCOUNTER 2021-01-04 07:17 | Emergency (ER) | payer MEDICARE, OTHER ==
[2021-01-04 07:21] VITALS: TEMP 98.2
--- NOTE | 2021-01-04 07:54 | ED ---
General Adult HPI - General Chief complaint: Abdominal Pain Stated complaint: abd. pain Time Seen by Provider: 01/04/21 07:20 Source: patient, RN notes reviewed, old records reviewed Mode of arrival: ambulatory Limitations: no limitations - History of Present Illness Initial comments: This is a 70-year-old female presents emergency Department with lower abdominal pain. Patient states about a year ago she had a abscess in her abdomen and had to have a colectomy and colostomy. Patient states about 4 months later it was reversed. Patient states she's had pain on and off since then but over the last 10 days to 3 weeks she states the pain is been much more consistent especially after she eats per patient states she had something to eat again last night and the pain was quite severe across her whole middle abdomen. Patient denies any point tenderness. Patient states the pain seems to move. Patient states she also has had vomiting and diarrhea just about every day for the last 10 days per patient denies any fever chills per patient denies any dysuria hematuria urinary frequency. Patient any back pain. Patient denies any chest pain difficulty breathing shortness of breath. - Related Data Home Medications Medication Instructions Recorded Confirmed Simvastatin [Zocor] 20 mg PO HS 07/01/19 01/27/20 Aspirin/Acetaminophen/Caffeine 1 - 2 tab PO DAILY PRN 09/05/19 01/27/20 [Excedrin Extra Strength Caplet] Calcium Carbonate [Tums] 500 - 1,000 mg PO QID PRN 09/05/19 01/27/20 Cyanocobalamin (Vitamin B-12) 1,000 mcg PO DAILY 01/24/20 01/27/20 [Vitamin B-12] Metoprolol Tartrate [Lopressor] 25 mg PO BID 01/24/20 01/27/20 Multivitamins, Thera [Multivitamin 1 tab PO Q7D 01/24/20 01/26/20 (formulary)] Previous Rx's Medication Instructions Recorded Apixaban [Eliquis] 5 mg PO BID #60 tab 09/20/19 Docusate [Colace] 100 mg PO BID #30 capsule 02/01/20 Hydrocodone/Acetaminophen [[place] 1 tab PO Q6HR PRN 3 Days #12 tab 02/01/20 5-325] bisacodyL [Dulcolax] 5 mg PO DAILY #5 tab 01/04/21 Allergies Allergy/AdvReac Type Severity Reaction Status Date / Time bee venom protein (honey bee) Allergy Anaphylaxis Verified 01/04/21 07:21 Review of Systems ROS Statement: Those systems with pertinent positive or pertinent negative responses have been documented in the HPI. ROS Other: All systems not noted in ROS Statement are negative. Past Medical History Past Medical History: Atrial Fibrillation, Cancer, Hyperlipidemia Additional Past Medical History / Comment(s): Do Not Use Left Arm for IV or BP- left breast CA with lumpectomy, radiation and chemo 2002. 09/11/19 Diverticul itis w/ perforation, colostomy; developed AFib w/ RVR, pulmonary edema post-op. History of Any Multi-Drug Resistant Organisms: None Reported Past Surgical History: Bowel Resection, Breast Surgery, Cholecystectomy, Tonsillectomy Additional Past Surgical History / Comment(s): L breast lumpectomy 2002. Gomez proc w/ Colostomy 09/11/19 Past Anesthesia/Blood Transfusion Reactions: Motion Sickness Additional Past Anesthesia/Blood Transfusion Reaction / Comment(s): Pt has never recieved blood. Past Psychological History: No Psychological Hx Reported Smoking Status: Former smoker Past Alcohol Use History: Occasional Past Drug Use History: None Reported - Past Family History Father Family Medical History: Myocardial Infarction (AL) Additional Family Medical History / Comment(s): Father had a AL in his 60's. He from a post op hip infection at age 73 yrs. no gallbladder disease Mother Family Medical History: Eye Disorder, Hypertension Additional Family Medical History / Comment(s): Mother had glaucoma. She at age 82 yrs. General Exam - General Exam Comments Initial Comments: GENERAL: Patient is well-developed and well-nourished. Patient is nontoxic and well- hydrated and is in no acute distress. ENT: Neck is soft and supple. No significant lymphadenopathy is noted. Oropharynx is clear. Moist mucous membranes. Neck has full range of motion without eliciting any pain. EYES: The sclera were anicteric and conjunctiva were pink and moist. Extraocular movements were intact and pupils were equal round and reactive to light. Eyelids were unremarkable. PULMONARY: Unlabored respirations. Good breath sounds bilaterally. No audible rales r honchi or wheezing was noted. CARDIOVASCULAR: There is a regular rate and rhythm without any murmurs gallops or rubs. ABDOMEN: Soft and nontender with normal bowel sounds. SKIN: Skin is clear with no lesions or rashes and otherwise unremarkable. NEUROLOGIC: Patient is alert and oriented x3. Cranial nerves II through XII are grossly intact. Motor and sensory are also intact. Normal speech, volume and content. Symmetrical smile. MUSCULOSKELETAL: Normal extremities with adequate strength and full range of motion. No lower extremity swelling or edema. No calf tenderness. LYMPHATICS: No significant lymphadenopathy is noted PSYCHIATRIC: Normal psychiatric evaluation. Limitations: no limitations Course Vital Signs 01/04/21 07:18 Temperature 98.2 F Pulse Rate 91 Respiratory 18 Rate Blood Pressure 152/87 O2 Sat by Pulse 99 Oximetry Medical Decision Making - Medical Decision Making Patient's CAT scan of the abdomen and pelvis shows significant constipation. I went in to see the patient and offered an enema she refused she wanted to be sent home with some oral medications. - Lab Data Result diagrams: 01/04/21 07:43 01/04/21 07:43 Lab Results 01/04/21 01/04/21 01/04/21 Range/Units 07:43 07:43 07:43 WBC 10.5 (3.8-10.6) k/uL RBC 5.60 H (3.80-5.40) m/uL Hgb 15.1 (11.4-16.0) gm/dL Hct 48.4 H (34.0-46.0) % MCV 86.4 (80.0-100.0) fL MCH 27.0 (25.0-35.0) pg MCHC 31.2 (31.0-37.0) g/dL RDW 14.3 (11.5-15.5) % Plt Count 354 (150-450) k/uL MPV 7.4 Neutrophils % 75 % Lymphocytes % 16 % Monocytes % 6 % Eosinophils % 1 % Basophils % 1 % Neutrophils # 7.9 H (1.3-7.7) k/uL Lymphocytes # 1.7 (1.0-4.8) k/uL Monocytes # 0.6 (0-1.0) k/uL Eosinophils # 0.1 (0-0.7) k/uL Basophils # 0.1 (0-0.2) k/uL Hypochromasia Slight Sodium 138 (137-145) mmol/L Potassium 4.3 (3.5-5.1) mmol/L Chloride 103 (98-107) mmol/L Carbon Dioxide 20 L (22-30) mmol/L Anion Gap 15 mmol/L BUN 12 (7-17) mg/dL Creatinine 0.72 (0.52-1.04) mg/dL Est GFR (CKD-EPI)AfAm >90 (>60 ml/min/1.73 sqM) Est GFR (CKD-EPI)NonAf 87 (>60 ml/min/1.73 sqM) Glucose 103 H (74-99) mg/dL Plasma Lactic Acid Bereket (0.7-2.0) mmol/L Calcium 10.7 H (8.4-10.2) mg/dL Total Bilirubin 0.8 (0.2-1.3) mg/dL AST 36 (14-36) U/L ALT 27 (4-34) U/L Alkaline Phosphatase 105 (38-126) U/L Total Protein 7.9 (6.3-8.2) g/dL Albumin 4.7 (3.5-5.0) g/dL Amylase 59 (30-110) U/L Lipase 97 (23-300) U/L Urine Color Yellow Urine Appearance Clear (Clear) Urine pH 5.5 (5.0-8.0) Ur Specific [place] 1.025 (1.001-1.035) Urine Protein Trace H (Negative) Urine Glucose (UA) Negative (Negative) Urine Ketones 4+ H (Negative) Urine Blood Trace H (Negative) Urine Nitrite Negative (Negative) Urine Bilirubin 1+ H (Negative) Urine Urobilinogen <2.0 (<2.0) mg/dL Ur Leukocyte Esterase Moderate H (Negative) Urine RBC 1 (0-5) /hpf Urine WBC 9 H (0-5) /hpf Ur Squamous Epith Cells 5 H (0-4) /hpf Hyaline Casts 1 (0-2) /lpf Urine Mucus Many H (None) /hpf 01/04/21 Range/Units 07:43 WBC (3.8-10.6) k/uL RBC (3.80-5.40) m/uL Hgb (11.4-16.0) gm/dL Hct (34.0-46.0) % MCV (80.0-100.0) fL MCH (25.0-35.0) pg MCHC (31.0-37.0) g/dL RDW (11.5-15.5) % Plt Count (150-450) k/uL MPV Neutrophils % % Lymphocytes % % Monocytes % % Eosinophils % % Basophils % % Neutrophils # (1.3-7.7) k/uL Lymphocytes # (1.0-4.8) k/uL Monocytes # (0-1.0) k/uL Eosinophils # (0-0.7) k/uL Basophils # (0-0.2) k/uL Hypochromasia Sodium (137-145) mmol/L Potassium (3.5-5.1) mmol/L Chloride (98-107) mmol/L Carbon Dioxide (22-30) mmol/L Anion Gap mmol/L BUN (7-17) mg/dL Creatinine (0.52-1.04) mg/dL Est GFR (CKD-EPI)AfAm (>60 ml/min/1.73 sqM) Est GFR (CKD-EPI)NonAf (>60 ml/min/1.73 sqM) Glucose (74-99) mg/dL Plasma Lactic Acid Bereket 1.1 (0.7-2.0) mmol/L Calcium (8.4-10.2) mg/dL Total Bilirubin (0.2-1.3) mg/dL AST (14-36) U/L ALT (4-34) U/L Alkaline Phosphatase (38-126) U/L Total Protein (6.3-8.2) g/dL Albumin (3.5-5.0) g/dL Amylase (30-110) U/L Lipase (23-300) U/L Urine Color Urine Appearance (Clear) Urine pH (5.0-8.0) Ur Specific [place] (1.001-1.035) Urine Protein (Negative) Urine Glucose (UA) (Negative) Urine Ketones (Negative) Urine Blood (Negative) Urine Nitrite (Negative) Urine Bilirubin (Negative) Urine Urobilinogen (<2.0) mg/dL Ur Leukocyte Esterase (Negative) Urine RBC (0-5) /hpf Urine WBC (0-5) /hpf Ur Squamous Epith Cells (0-4) /hpf Hyaline Casts (0-2) /lpf Urine Mucus (None) /hpf Disposition Clinical Impression: Constipation, Abdominal pain Disposition: HOME SELF-CARE Instructions (If sedation given, give patient instructions): Abdominal Pain (E D), Constipation (ED), High Fiber Diet (ED) Prescriptions: bisacodyL [Dulcolax] 5 mg PO DAILY #5 tab Is patient prescribed a controlled substance at d/c from ED?: No Referrals: Leslie Estrada MD [Primary Care Provider] - 1-2 days Time of Disposition: 08:58
[2021-01-04 07:57] LABS: Basophils # (A) 0.1 k/uL (0-0.2); Basophils % (A) 1 %; Eosinophils # (A) 0.1 k/uL (0-0.7); Eosinophils % (A) 1 %; HCT 48.4 % (34.0-46.0); HGB 15.1 gm/dL (11.4-16.0); Hypochromasia Slight; Lymphocytes # (A) 1.7 k/uL (1.0-4.8); Lymphocytes % (A) 16 %; MCHC 31.2 g/dL (31.0-37.0); MCV 86.4 fL (80.0-100.0); Mean Platelet Volume 7.4; Monocytes # (A) 0.6 k/uL (0-1.0); Monocytes % (A) 6 %; Neutrophils # (A) 7.9 k/uL (1.3-7.7); Neutrophils % (A) 75 %; Platelet Count 354 k/uL (150-450); RDW 14.3 % (11.5-15.5); WBC 10.5 k/uL (3.8-10.6)
[2021-01-04 08:11] LABS: ALT 27 U/L (4-34); AST 36 U/L (14-36); African American GFR (CKD) >90 (>60 ml/min/1.73 sqM); Albumin 4.7 g/dL (3.5-5.0); Alkaline Phosphatase 105 U/L (38-126); Amylase 59 U/L (30-110); Anion Gap 15 mmol/L; Blood Urea Nitrogen 12 mg/dL (7-17); Calcium 10.7 mg/dL (8.4-10.2); Carbon Dioxide 20 mmol/L (22-30); Chloride 103 mmol/L (98-107); Glucose 103 mg/dL (74-99); Lipase 97 U/L (23-300); Non-African American GFR(CKD) 87 (>60 ml/min/1.73 sqM); Potassium 4.3 mmol/L (3.5-5.1); Sodium 138 mmol/L (137-145); Total Bilirubin 0.8 mg/dL (0.2-1.3); Total Protein 7.9 g/dL (6.3-8.2)
[2021-01-04 08:15] LABS: Appearance,Urine Clear (Clear); Bilirubin,Urine 1+ (Negative); Blood,Urine Trace (Negative); Color,Urine Yellow; Glucose,Urine (UA) Negative (Negative); Hyaline Casts,Urine 1 /lpf (0-2); Ketones,Urine 4+ (Negative); Leukocyte Esterase,Urine Moderate (Negative); Mucus,Urine Many /hpf; Nitrite,Urine Negative (Negative); PH, Urine 5.5 (5.0-8.0); Protein,Urine Trace (Negative); RBC,Urine 1 /hpf (0-5); Specific Gravity,Urine 1.025 (1.001-1.035); Squamous Epithelial Cell,Urine 5 /hpf (0-4); Urobilinogen,Urine <2.0 mg/dL (<2.0); WBC,Urine 9 /hpf (0-5)
--- NOTE | 2021-01-04 08:47 | CT ---
EXAMINATION TYPE: CT abdomen pelvis w con DATE OF EXAM: 01/04/2021 COMPARISON: 09/20/2019 HISTORY: Abd pain CT DLP: 879.5 mGycm CONTRAST: CT scan of the abdomen and pelvis is performed without Oral Contrast and with IV Contrast, patient in jected with 100 mL of Isovue 300. FINDINGS: LUNG BASES-: No visible nodule. No infiltrate. LIVER/GB: 7 mm cyst periphery of the left hepatic lobe is unchanged. The gallbladder is surgically ab sent. Biliary tree is of normal caliber. PANCREAS: No inflammation. No distinct mass. SPLEEN: No splenic enlargement. No lesion seen. ADRENALS: No nodule. No thickening. KIDNEYS/BLADDER: No hydronephrosis. No nephrolithiasis. No distinct renal mass. Urinary bladder g rossly unremarkable. BOWEL: Normal appendix. Normal bowel caliber. No inflammation. Severe constipation noted. Rectosigm oid ring of sutures noted. GENITAL ORGANS: No gross abnormality. LYMPH NODES: No greater than 1cm abdominal or pelvic lymph nodes are appreciated. AORTA: No significant abnormality. OSSEOUS STRUCTURES: No significant abnormality is seen. OTHER: Low anterior abdominal wall ventral hernia with wide mouth measures 5.3 cm and contains a coup le loops of small bowel. There is no evidence for incarceration. IMPRESSION: 1. Severe constipation. 2. Low anterior abdominal wall ventral hernia as noted above.
[2021-01-04] MEDS ORDERED: MAGNESIUM CITRATE 296 ML BOTTLE PO ONE (08:59)
[2021-01-04 09:19] VITALS: BP 124/59; PULSE 71; RESP 20
== END 2021-01-04 09:19 | disposition home or self-care (01) ==
LOC: EC 07:17
DX: K59.00 Constipation, unspecified (principal); R10.30 Lower abdominal pain, unspecified; M54.9 Dorsalgia, unspecified; E78.5 Hyperlipidemia, unspecified; I48.91 Unspecified atrial fibrillation; Z87.891 Personal history of nicotine dependence; Z90.49 Acquired absence of other specified parts of digestive tract; Z93.3 Colostomy status; Z91.030 Bee allergy status; Z79.899 Other long term (current) drug therapy
CPT/HCPCS: 36415; 80053; 82150; 83605; 83690; 85025; 81001; 74177; 99284; Q9967

== ENCOUNTER 2021-02-02 04:32 | Observation (INO) | payer MEDICARE, OTHER ==
--- NOTE | 2021-02-02 05:11 | ED ---
Abdominal Pain HPI <Yuval Almanzar - Last Filed: 02/02/21 09:05> - General Source: patient, RN notes reviewed, old records reviewed Mode of arrival: ambulatory Limitations: no limitations - History of Present Illness MD Complaint: abdominal pain, other (Anterior suprapubic abdominal pain as well as rectal pain) -: month(s) Location: diffuse, suprapubic Radiation: suprapubic Migration to: suprapubic Severity: severe Severity scale (1-10): 8 Quality: fullness, sharp Consistency: intermittent Improves With: nothing Worsens With: nothing Associated Symptoms: nausea, constipation Treatments Prior to Arrival: other (Bowel regimen) <Yuval Greenfield - Last Filed: 02/06/21 03:22> - General Chief Complaint: Abdominal Pain Stated Complaint: Abd Pain Time Seen by Provider: 02/02/21 04:41 - History of Present Illness Initial Comments: This is a 70-year-old female to the emergency department today. She presents today for evaluation of significant abdominal pain lower suprapubic abdominal pain as well as pain around her tailbone. Patient has had the symptoms going on for greater than a month was in the ER about a month ago until she was constipated. Patient has not had a normal bowel movement since. She is also see her primary care doctor and on multiple regimens for outpatient medication and had no improvement. She is without fever no nausea vomiting believe she is eating appropriately she has had a bowel resection as well as a cholecystectomy (Yuval Greenfield) - Related Data Home Medications Medication Instructions Recorded Confirmed Simvastatin [Zocor] 20 mg PO HS 07/01/19 02/05/21 Cyanocobalamin (Vitamin B-12) 1,000 mcg PO DAILY 01/24/20 02/05/21 [Vitamin B-12] Metoprolol Tartrate [Lopressor] 25 mg PO BID 01/24/20 02/05/21 Multivitamins, Thera [Multivitamin 1 tab PO WINN 01/24/20 02/05/21 (formulary)] Docusate [Colace] 100 mg PO HS PRN 02/02/21 02/05/21 Previous Rx's Medication Instructions Recorded Cefuroxime Axetil [Ceftin] 500 mg PO BID 7 Days #14 tab 02/03/21 Allergies Allergy/AdvReac Type Severity Reaction Status Date / Time bee venom protein (honey bee) Allergy Anaphylaxis Verified 02/05/21 11:55 Review of Systems ROS Other: All systems not noted in ROS Statement are negative. <Yuval Almanzar - Last Filed: 02/02/21 09:05> ROS Other: All systems not noted in ROS Statement are negative. <Yuval Greenfield - Last Filed: 02/06/21 03:22> ROS Statement: Those systems with pertinent positive or pertinent negative responses have been documented in the HPI. Past Medical History Past Medical History: Atrial Fibrillation, Cancer, Hyperlipidemia Additional Past Medical History / Comment(s): Do Not Use Left Arm for IV or BP- left breast CA with lumpectomy, radiation and chemo 2002. 09/11/19 Diverticulitis w/ perforation, colostomy; developed AFib w/ RVR, pulmonary edema post-op. History of Any Multi-Drug Resistant Organisms: None Reported Past Surgical History: Bowel Resection, Breast Surgery, Cholecystectomy, Tonsillectomy Additional Past Surgical History / Comment(s): L breast lumpectomy 2002. Gomez proc w/ Colostomy 09/11/19 Past Anesthesia/Blood Transfusion Reactions: Motion Sickness Additional Past Anesthesia/Blood Transfusion Reaction / Comment(s): Pt has never recieved blood. Past Psychological History: No Psychological Hx Reported Smoking Status: Former smoker Past Alcohol Use History: Occasional Past Drug Use History: None Reported - Past Family History Father Family Medical History: Myocardial Infarction ([place]) Additional Family Medical History / Comment(s): Father had a [place] in his 60's. He from a post op hip infection at age 73 yrs. no gallbladder disease Mother Family Medical History: Eye Disorder, Hypertension Additional Family Medical History / Comment(s): Mother had glaucoma. She at age 82 yrs. <Yuval Greenfield - Last Filed: 02/06/21 03:22> General Exam General appearance: alert, in no apparent distress Head exam: Present: atraumatic, normocephalic, normal inspection Eye exam: Present: normal appearance, PERRL, EOMI. Absent: scleral icterus, c onjunctival injection, periorbital swelling ENT exam: Present: normal exam, mucous membranes moist Neck exam: Present: normal inspection. Absent: tenderness, meningismus, lymphadenopathy Respiratory exam: Present: normal lung sounds bilaterally. Absent: respiratory distress, wheezes, rales, rhonchi, stridor Cardiovascular Exam: Present: regular rate, normal rhythm, normal heart sounds. Absent: systolic murmur, diastolic murmur, rubs, gallop, clicks GI/Abdominal exam: Present: soft, normal bowel sounds. Absent: distended, tenderness, guarding, rebound, rigid Extremities exam: Present: normal inspection, full ROM, normal capillary refill. Absent: tenderness, pedal edema, joint swelling, calf tenderness Back exam: Present: normal inspection Neurological exam: Present: alert, oriented X3, CN II-XII intact Psychiatric exam: Present: normal affect, normal mood Skin exam: Present: warm, dry, intact, normal color. Absent: rash <Yuval Greenfield - Last Filed: 02/06/21 03:22> Course <Yuval Greenfield - Last Filed: 02/06/21 03:22> Vital Signs 02/02/21 02/02/21 02/02/21 04:36 08:03 08:30 Temperature 99 F Pulse Rate 87 75 67 Pulse Rate [ Right Radial] Respiratory 19 Rate Blood Pressure 111/77 109/64 Blood Pressure [Right Arm] O2 Sat by Pulse 96 96 Oximetry 02/02/21 02/02/21 02/02/21 09:00 09:30 09:37 Temperature 98.4 F Pulse Rate 77 79 Pulse Rate [ 73 Right Radial] Respiratory 16 Rate Blood Pressure 102/59 104/61 Blood Pressure 116/71 [Right Arm] O2 Sat by Pulse 98 94 L 100 Oximetry 02/02/21 02/02/21 02/02/21 10:00 10:30 11:00 Temperature Pulse Rate 77 77 100 Pulse Rate [ Right Radial] Respiratory Rate Blood Pressure 104/60 106/56 106/51 Blood Pressure [Right Arm] O2 Sat by Pulse 95 96 96 Oximetry - Reevaluation(s) Reevaluation #1: 02/02/21 06:08 Medical record is reviewed (Yuval Greenfield) Medical Decision Making - Lab Data Result diagrams: 02/02/21 05:41 02/02/21 05:41 <Yuval Almanzar - Last Filed: 02/02/21 09:05> - Lab Data Result diagrams: 02/03/21 04:41 02/03/21 04:41 <Yuval Greenfield B - Last Filed: 02/06/21 03:22> - Medical Decision Making EKG shows normal sinus rhythm at 72 bpm MT interval is 160 QRS is 74 QT interval 418 QTC is 457. Patient's EKG shows no ST segment elevation or depression. I went back into the room to reevaluate the patient notices when she told me she was having chest pain. Computed tomography scan results came back and showed some possible stricture in the colon where the anastomosis is. Patient also showed some mild to moderate constipation. I spoke with Dr. Estrada about the patient being admitted for chest pain and he wanted the patient minute I consult to cardiology as well as Dr. Mcgrath for the abdominal pain. (Yuval Almanzar) - Lab Data Lab Results 02/02/21 02/02/21 02/02/21 Range/Units 05:41 05:41 05:41 WBC 13.4 H (3.8-10.6) k/uL RBC 4.99 (3.80-5.40) m/uL Hgb 13.7 (11.4-16.0) gm/dL Hct 42.4 (34.0-46.0) % MCV 84.9 (80.0-100.0) fL MCH 27.4 (25.0-35.0) pg MCHC 32.3 (31.0-37.0) g/dL RDW 13.2 (11.5-15.5) % Plt Count 370 (150-450) k/uL MPV 8.4 Neutrophils % 74 % Lymphocytes % 17 % Monocytes % 5 % Eosinophils % 1 % Basophils % 1 % Neutrophils # 9.9 H (1.3-7.7) k/uL Lymphocytes # 2.3 (1.0-4.8) k/uL Monocytes # 0.7 (0-1.0) k/uL Eosinophils # 0.1 (0-0.7) k/uL Basophils # 0.1 (0-0.2) k/uL Sodium 134 L (137-145) mmol/L Potassium 4.4 (3.5-5.1) mmol/L Chloride 102 (98-107) mmol/L Carbon Dioxide 22 (22-30) mmol/L Anion Gap 10 mmol/L BUN 11 (7-17) mg/dL Creatinine 0.69 (0.52-1.04) mg/dL Est GFR (CKD-EPI)AfAm >90 (>60 ml/min/1.73 sqM) Est GFR (CKD-EPI)NonAf 89 (>60 ml/min/1.73 sqM) Glucose 122 H (74-99) mg/dL Plasma Lactic Acid Bereket (0.7-2.0) mmol/L Calcium 10.3 H (8.4-10.2) mg/dL Phosphorus 3.4 (2.5-4.5) mg/dL Magnesium 2.2 (1.6-2.3) mg/dL Total Bilirubin 1.1 (0.2-1.3) mg/dL AST 30 (14-36) U/L ALT 21 (4-34) U/L Alkaline Phosphatase 106 (38-126) U/L Troponin I (0.000-0.034) ng/mL Total Protein 7.6 (6.3-8.2) g/dL Albumin 4.4 (3.5-5.0) g/dL Amylase 49 (30-110) U/L Lipase 79 (23-300) U/L Urine Color Yellow Urine Appearance Cloudy H (Clear) Urine pH 5.5 (5.0-8.0) Ur Specific Page 1.013 (1.001-1.035) Urine Protein Trace H (Negative) Urine Glucose (UA) Negative (Negative) Urine Ketones 1+ H (Negative) Urine Blood Large H (Negative) Urine Nitrite Negative (Negative) Urine Bilirubin Negative (Negative) Urine Urobilinogen <2.0 (<2.0) mg/dL Ur Leukocyte Esterase Large H (Negative) Urine RBC 4 (0-5) /hpf Urine WBC 8 H (0-5) /hpf Ur Squamous Epith Cells 19 H (0-4) /hpf Urine Bacteria Rare H (None) /hpf Urine Mucus Many H (None) /hpf 02/02/21 02/02/21 Range/Units 05:41 08:10 WBC (3.8-10.6) k/uL RBC (3.80-5.40) m/uL Hgb (11.4-16.0) gm/dL Hct (34.0-46.0) % MCV (80.0-100.0) fL MCH (25.0-35.0) pg MCHC (31.0-37.0) g/dL RDW (11.5-15.5) % Plt Count (150-450) k/uL MPV Neutrophils % % Lymphocytes % % Monocytes % % Eosinophils % % Basophils % % Neutrophils # (1.3-7.7) k/uL Lymphocytes # (1.0-4.8) k/uL Monocytes # (0-1.0) k/uL Eosinophils # (0-0.7) k/uL Basophils # (0-0.2) k/uL Sodium (137-145) mmol/L Potassium (3.5-5.1) mmol/L Chloride (98-107) mmol/L Carbon Dioxide (22-30) mmol/L Anion Gap mmol/L BUN (7-17) mg/dL Creatinine (0.52-1.04) mg/dL Est GFR (CKD-EPI)AfAm (>60 ml/min/1.73 sqM) Est GFR (CKD-EPI)NonAf (>60 ml/min/1.73 sqM) Glucose (74-99) mg/dL Plasma Lactic Acid Bereket 1.8 (0.7-2.0) mmol/L Calcium (8.4-10.2) mg/dL Phosphorus (2.5-4.5) mg/dL Magnesium (1.6-2.3) mg/dL Total Bilirubin (0.2-1.3) mg/dL AST (14-36) U/L ALT (4-34) U/L Alkaline Phosphatase (38-126) U/L Troponin I <0.012 (0.000-0.034) ng/mL Total Protein (6.3-8.2) g/dL Albumin (3.5-5.0) g/dL Amylase (30-110) U/L Lipase (23-300) U/L Urine Color Urine Appearance (Clear) Urine pH (5.0-8.0) Ur Specific Page (1.001-1.035) Urine Protein (Negative) Urine Glucose (UA) (Negative) Urine Ketones (Negative) Urine Blood (Negative) Urine Nitrite (Negative) Urine Bilirubin (Negative) Urine Urobilinogen (<2.0) mg/dL Ur Leukocyte Esterase (Negative) Urine RBC (0-5) /hpf Urine WBC (0-5) /hpf Ur Squamous Epith Cells (0-4) /hpf Urine Bacteria (None) /hpf Urine Mucus (None) /hpf Disposition Time of Disposition: 09:06 <Yuval Almanzar - Last Filed: 02/02/21 09:05> <Yuval Greenfield - Last Filed: 02/06/21 03:22> Clinical Impression: Abdominal pain, Chest pain Disposition: ADMITTED IP TO THIS HOSP
[2021-02-02] MEDS ORDERED: SODIUM CHLORIDE 0.9% 1,000 ML IV STA (05:28)
[2021-02-02] MEDS ORDERED: KETOROLAC 15 MG/ML 1 ML VIAL IVP STA (05:28)
[2021-02-02] MEDS ORDERED: MORPHINE SULFATE 4 MG/ML SYRINGE IV STA (05:28)
[2021-02-02 06:12] LABS: Basophils # (A) 0.1 k/uL (0-0.2); Basophils % (A) 1 %; Eosinophils # (A) 0.1 k/uL (0-0.7); Eosinophils % (A) 1 %; HCT 42.4 % (34.0-46.0); HGB 13.7 gm/dL (11.4-16.0); Lymphocytes # (A) 2.3 k/uL (1.0-4.8); Lymphocytes % (A) 17 %; MCH 27.4 pg (25.0-35.0); MCHC 32.3 g/dL (31.0-37.0); MCV 84.9 fL (80.0-100.0); Mean Platelet Volume 8.4; Monocytes # (A) 0.7 k/uL (0-1.0); Monocytes % (A) 5 %; Neutrophils # (A) 9.9 k/uL (1.3-7.7); Neutrophils % (A) 74 %; Platelet Count 370 k/uL (150-450); RBC 4.99 m/uL (3.80-5.40); RDW 13.2 % (11.5-15.5); WBC 13.4 k/uL (3.8-10.6)
[2021-02-02 06:25] LABS: ALT 21 U/L (4-34); AST 30 U/L (14-36); African American GFR (CKD) >90 (>60 ml/min/1.73 sqM); Albumin 4.4 g/dL (3.5-5.0); Alkaline Phosphatase 106 U/L (38-126); Amylase 49 U/L (30-110); Anion Gap 10 mmol/L; Blood Urea Nitrogen 11 mg/dL (7-17); Calcium 10.3 mg/dL (8.4-10.2); Carbon Dioxide 22 mmol/L (22-30); Chloride 102 mmol/L (98-107); Glucose 122 mg/dL (74-99); Lipase 79 U/L (23-300); Magnesium 2.2 mg/dL (1.6-2.3); Non-African American GFR(CKD) 89 (>60 ml/min/1.73 sqM); Phosphorus 3.4 mg/dL (2.5-4.5); Potassium 4.4 mmol/L (3.5-5.1); Sodium 134 mmol/L (137-145); Total Bilirubin 1.1 mg/dL (0.2-1.3); Total Protein 7.6 g/dL (6.3-8.2)
[2021-02-02 06:39] LABS: Appearance,Urine Cloudy (Clear); Bacteria,Urine Rare /hpf; Bilirubin,Urine Negative (Negative); Blood,Urine Large (Negative); Color,Urine Yellow; Glucose,Urine (UA) Negative (Negative); Ketones,Urine 1+ (Negative); Leukocyte Esterase,Urine Large (Negative); Mucus,Urine Many /hpf; Nitrite,Urine Negative (Negative); PH, Urine 5.5 (5.0-8.0); Protein,Urine Trace (Negative); RBC,Urine 4 /hpf (0-5); Specific Gravity,Urine 1.013 (1.001-1.035); Squamous Epithelial Cell,Urine 19 /hpf (0-4); Urobilinogen,Urine <2.0 mg/dL (<2.0); WBC,Urine 8 /hpf (0-5)
[2021-02-02] MEDS ORDERED: SENNOSIDES-DOCUSATE SODIUM 1 EACH TAB PO STA (07:16)
--- NOTE | 2021-02-02 07:17 | CT ---
EXAMINATION TYPE: CT abdomen pelvis w con DATE OF EXAM: 02/02/2021 HISTORY: Pain, diarrhea CT DLP: 526.3mGycm Automated Exposure Control for Dose Reduction was Utilized. CONTRAST: CT scan of the abdomen and pelvis is performed without oral but with IV Contrast, patient injected wi th 100 mL of Isovue 300. COMPARISON: CT 30 days ago. FINDINGS: LUNG BASES: No significant abnormality is appreciated. LIVER/GB: Stable 7 mm low dense lesion periphery right hepatic lobe axial image 10 presumably benign. Cholecystectomy clips redemonstrated PANCREAS: No significant abnormality is seen. SPLEEN: No significant abnormality is seen. ADRENALS: No significant abnormality is seen. KIDNEYS: Symmetric cortical medullary uptake and excretion without hydronephrosis bilaterally. Stable 1.1 cm simple appearing thin-walled cyst left kidney lower pole level axial image 36. BOWEL: Suboptimal evaluation without enteric contrast. Similar to prior study there is no suspicious small bilateral dilatation. There are surgical changes with sutures in the pelvis with poor fat delin eation from adjacent uterus. Small amount of surrounding fluid is present there is mild to moderate f ecal prominence above the sutures though this is less prominent than prior study UTERUS/ADNEXA: Uterus poorly visualized during this distinct from adjacent sigmoid rectal colon. LYMPH NODES: No greater than 1cm abdominal or pelvic lymph nodes are appreciated. OSSEOUS STRUCTURES: Facet arthropathy lower lumbar levels. OTHER: Mild to moderate peripheral calcified plaque infrarenal abdominal aorta extends into branch ve ssels. Persistent eventration in the anterior abdominal wall, there is suspected lower abdominal hernia defe ct with overlying mesh type material as there is rectus diastases redemonstrated. IMPRESSION: Persistent distal rectal surgical anastomosis with presumed narrowing or stricturing as t here is [id number] distal colonic fecal stasis proximal to this. This is less prominent than mo st recent CT however. Overall nonobstructive bowel gas pattern. No new findings are evident.
[2021-02-02] MEDS ORDERED: ASPIRIN 81 MG PO STA (07:40)
[2021-02-02] MEDS ORDERED: NITROGLYCERIN OINT 1 INCH/GM PACKET TOPICAL STA (07:40)
[2021-02-02] MEDS ORDERED: NITROGLYCERIN SL TABS 0.4 MG TAB SUBLINGUAL PRN (09:11)
[2021-02-02] MEDS: NITROGLYCERIN OINT 1 INCH/GM PACKET TOPICAL SCH ×2 (12:30→17:05)
--- NOTE | 2021-02-02 13:52 | P.HPIM ---
History of Present Illness H&P Date: 02/02/21 Courtney Castellano, is a 70-year-old female who presented to [facility] emergency room with a chief complaint of lower abdominal pain, patient has a known history of diverticulitis with abscess formation with history of partial colectomy by Dr. Mcgrath about 1 year ago, patient stated that she has been having difficulty with her bowel movements with alternating diarrhea and constipation and lower abdominal pain for several months however her symptoms have worsened recently and she decided to come to emergency room. While in the emergency room patient had an episode of chest pain which she describes as an acute sharp pain in the lower part of her chest that lasted 10- 15 minutes. She was evaluated in the emergency room vital examination on presentation revealed a temperature of 99 pulse 87 respiration 19 and blood pressure of 111/77 and pulse ox 96% on room air Laboratory data revealed a white blood count of 13.4 hemoglobin 13.7 platelet count 370 sodium 134 potassium 4.4 chloride 102 CO2 22 BUN 11 creatinine 0.69 amylase and lipase were normal troponin level was normal urine analysis revealed evidence of urinary tract infection. Testing in the emergency room revealed computed tomography scan of the abdomen and pelvis was done in the emergency room and revealed possible narrowing or stricturing at the anastomosis site with mild to moderate distal colonic fecal status is proximal to the anastomosis. EKG was done in the emergency room and revealed no significant abnormality Patient was admitted to medical floor for further evaluation and treatment, cardiology consultation and surgical consultation were requested Past Medical History Past Medical History: Atrial Fibrillation, Cancer, Hyperlipidemia Additional Past Medical History / Comment(s): Do Not Use Left Arm for IV or BP- left breast CA with lumpectomy, radiation and chemo 2002. 09/11/19 Diverticulitis w/ perforation, colostomy; developed AFib w/ RVR, pulmonary edema post-op. History of Any Multi-Drug Resistant Organisms: None Reported Past Surgical History: Bowel Resection, Breast Surgery, Cholecystectomy, Tonsillectomy Additional Past Surgical History / Comment(s): L breast lumpectomy 2002. Gomez proc w/ Colostomy 09/11/19 Past Anesthesia/Blood Transfusion Reactions: Motion Sickness Additional Past Anesthesia/Blood Transfusion Reaction / Comment(s): Pt has never recieved blood. Past Psychological History: No Psychological Hx Reported Smoking Status: Former smoker Past Alcohol Use History: Occasional Past Drug Use History: None Reported - Past Family History Father Family Medical History: Myocardial Infarction ([place]) Additional Family Medical History / Comment(s): Father had a [place] in his 60's. He from a post op hip infection at age 73 yrs. no gallbladder disease Mother Family Medical History: Eye Disorder, Hypertension Additional Family Medical History / Comment(s): Mother had glaucoma. She at age 82 yrs. Medications and Allergies Home Medications Medication Instructions Recorded Confirmed Type Simvastatin [Zocor] 20 mg PO HS 07/01/19 02/02/21 History Cyanocobalamin (Vitamin B-12) 1,000 mcg PO DAILY 01/24/20 02/02/21 History [Vitamin B-12] Metoprolol Tartrate [Lopressor] 25 mg PO BID 01/24/20 02/02/21 History Multivitamins, Thera [Multivitamin 1 tab PO WINN 01/24/20 02/02/21 History (formulary)] Docusate [Colace] 100 mg PO HS PRN 02/02/21 02/02/21 History Allergies Allergy/AdvReac Type Severity Reaction Status Date / Time bee venom protein (honey bee) Allergy Anaphylaxis Verified 02/02/21 10:12 Physical Exam Vitals: Vital Signs Temp Pulse Resp BP Pulse Ox 02/02/21 09:30 79 104/61 94 L 02/02/21 09:00 77 102/59 98 02/02/21 08:30 67 109/64 96 02/02/21 08:03 75 02/02/21 04:36 99 F 87 19 111/77 96 Intake and Output 02/01/21 02/02/21 02/02/21 22:59 06:59 14:59 Other: Weight 71.214 kg In general patient is alert and oriented x 3 in no distress HEENT head normocephalic and atraumatic Neck is supple no JVD no goiter no lymphadenopathy no carotid bruit Chest examination is clear to auscultation no crackles no wheezing Cardiac exam reveals regular heart sounds S1 and S2 no gallops no murmurs Abdomen is soft nontender no organomegaly with normal bowel sounds Extremity exam reveals no edema no cyanosis or clubbing Neurological examination reveals no gross focal deficits Results CBC & Chem 7: 02/02/21 05:41 02/02/21 05:41 Labs: Abnormal Lab Results - Last 24 Hours (Table) 02/02/21 02/02/21 02/02/21 Range/Units 05:41 05:41 05:41 WBC 13.4 H (3.8-10.6) k/uL Neutrophils # 9.9 H (1.3-7.7) k/uL Sodium 134 L (137-145) mmol/L Glucose 122 H (74-99) mg/dL Calcium 10.3 H (8.4-10.2) mg/dL Urine Appearance Cloudy H (Clear) Urine Protein Trace H (Negative) Urine Ketones 1+ H (Negative) Urine Blood Large H (Negative) Ur Leukocyte Esterase Large H (Negative) Urine WBC 8 H (0-5) /hpf Ur Squamous Epith Cells 19 H (0-4) /hpf Urine Bacteria Rare H (None) /hpf Urine Mucus Many H (None) /hpf Assessment and Plan Plan: Abdominal pain, with alternating diarrhea and constipation, there is abnormality on computed tomography scan revealing possible narrowing at the site of anastomosis, surgical consultation was requested, will check stool studies Evidence of urinary tract infection Will start IV Rocephin 1 g every 24 hours Episode of chest pain serial EKGs and cardiac enzymes were ordered, cardiology consultation was requested Underlying history of hypertension Underlying history of hyperlipidemia At this time patient is admitted to medical floor She was started on IV fluid and IV antibiotics Cardiology consultation and general surgery consultation requested Home medications reviewed and reordered Will follow closely
[2021-02-02] MEDS: METOPROLOL TARTRATE 25 MG TAB PO SCH (19:59)
[2021-02-02] MEDS ORDERED: ONDANSETRON 4 MG/2 ML VIAL IVP PRN (20:31)
[2021-02-02] MEDS ORDERED: HYDROmorphone 0.5 MG/0.5 ML SYRINGE IVP PRN (20:31)
[2021-02-02] MEDS ORDERED: ATORVASTATIN 10 MG TAB PO SCH (21:00)
[2021-02-03] MEDS: NITROGLYCERIN OINT 1 INCH/GM PACKET TOPICAL SCH ×2 (04:43)
[2021-02-03] MEDS: METOPROLOL TARTRATE 25 MG TAB PO SCH (07:36)
[2021-02-03 07:47] VITALS: BP 116/73; PULSE 77; RESP 18; TEMP 97.9
[2021-02-03] MEDS ORDERED: ENOXAPARIN 40 MG/0.4 ML SYRINGE SQ SCH (09:00)
[2021-02-03] MEDS ORDERED: CYANOCOBALAMIN 500 MCG TAB PO SCH (09:00)
[2021-02-03] MEDS ORDERED: ASPIRIN 325 MG TAB PO SCH (09:00)
[2021-02-03] MEDS ORDERED: MULTIVITAMINS, THERA 1 EACH TAB PO SCH (09:00)
[2021-02-03 09:17] LABS: ALT 93 U/L (4-34); AST 94 U/L (14-36); African American GFR (CKD) >90 (>60 ml/min/1.73 sqM); Albumin 3.6 g/dL (3.5-5.0); Albumin/Globulin Ratio 1.2; Alkaline Phosphatase 163 U/L (38-126); Anion Gap 9 mmol/L; Blood Urea Nitrogen 7 mg/dL (7-17); Calcium 9.7 mg/dL (8.4-10.2); Carbon Dioxide 20 mmol/L (22-30); Chloride 108 mmol/L (98-107); Glucose 93 mg/dL (74-99); Non-African American GFR(CKD) >90 (>60 ml/min/1.73 sqM); Potassium 4.3 mmol/L (3.5-5.1); Sodium 137 mmol/L (137-145); Total Bilirubin 0.9 mg/dL (0.2-1.3); Total Protein 6.6 g/dL (6.3-8.2)
[2021-02-03 09:38] LABS: Basophils # (A) 0.1 k/uL (0-0.2); Basophils % (A) 1 %; Eosinophils # (A) 0.2 k/uL (0-0.7); Eosinophils % (A) 2 %; HCT 41.5 % (34.0-46.0); HGB 13.7 gm/dL (11.4-16.0); Lymphocytes # (A) 1.5 k/uL (1.0-4.8); Lymphocytes % (A) 21 %; MCH 27.9 pg (25.0-35.0); MCHC 33.1 g/dL (31.0-37.0); MCV 84.4 fL (80.0-100.0); Mean Platelet Volume 8.2; Monocytes # (A) 0.5 k/uL (0-1.0); Monocytes % (A) 7 %; Neutrophils # (A) 4.8 k/uL (1.3-7.7); Neutrophils % (A) 66 %; Platelet Count 282 k/uL (150-450); RBC 4.92 m/uL (3.80-5.40); RDW 13.7 % (11.5-15.5); WBC 7.3 k/uL (3.8-10.6)
--- NOTE | 2021-02-03 10:09 | P.PN ---
Subjective Progress Note Date: 02/03/21 Courtney Castellano, is a 70-year-old female who presented to [facility] emergency room with a chief complaint of lower abdominal pain, patient has a known history of diverticulitis with abscess formation with history of partial colectomy by Dr. Mcgrath about 1 year ago, patient stated that she has been having difficulty with her bowel movements with alternating diarrhea and constipation and lower abdominal pain for several months however her symptoms have worsened recently and she decided to come to emergency room. While in the emergency room patient had an episode of chest pain which she describes as an acute sharp pain in the lower part of her chest that lasted 10- 15 minutes. She was evaluated in the emergency room vital examination on presentation revealed a temperature of 99 pulse 87 respiration 19 and blood pressure of 111/77 and pulse ox 96% on room air Laboratory data revealed a white blood count of 13.4 hemoglobin 13.7 platelet count 370 sodium 134 potassium 4.4 chloride 102 CO2 22 BUN 11 creatinine 0.69 amylase and lipase were normal troponin level was normal urine analysis revealed evidence of urinary tract infection. Testing in the emergency room revealed computed tomography scan of the abdomen and pelvis was done in the emergency room and revealed possible narrowing or stricturing at the anastomosis site with mild to moderate distal colonic fecal status is proximal to the anastomosis. EKG was done in the emergency room and revealed no significant abnormality Patient was admitted to medical floor for further evaluation and treatment, cardiology consultation and surgical consultation were requested On 02/03/2021 patient's alert and oriented 3. Patient reports she still having occasional diarrhea. Awaiting surgical and cardiology input. Patient denies any further episodes of chest pain. Patient is positive for UTI currently maintained on Rocephin. Patient denies chest pain or shortness of breath. Patient denies nausea vomiting or diarrhea. Patient denies any urinary burning or frequency Objective - Vital Signs Vital signs: Vital Signs Temp 97.9 F 02/03/21 07:00 Pulse 77 02/03/21 07:00 Resp 18 02/03/21 08:00 BP 116/73 02/03/21 07:00 Pulse Ox 99 02/03/21 09:16 Intake & Output 02/02/21 02/03/21 02/03/21 18:59 06:59 18:59 Weight 71.214 kg Other: Voiding Method Toilet Toilet # Voids 2 4 - Exam In general patient is alert and oriented x 3 in no distress HEENT head normocephalic and atraumatic Neck is supple no JVD no goiter no lymphadenopathy no carotid bruit Chest examination is clear to auscultation no crackles no wheezing Cardiac exam reveals regular heart sounds S1 and S2 no gallops no murmurs Abdomen is soft nontender no organomegaly with normal bowel sounds Extremity exam reveals no edema no cyanosis or clubbing Neurological examination reveals no gross focal deficits - Labs CBC & Chem 7: 02/03/21 04:41 02/03/21 04:41 Labs: Abnormal Lab Results - Last 24 Hours (Table) 02/03/21 Range/Units 04:41 Chloride 108 H (98-107) mmol/L Carbon Dioxide 20 L (22-30) mmol/L AST 94 H (14-36) U/L ALT 93 H (4-34) U/L Alkaline Phosphatase 163 H (38-126) U/L Microbiology - Last 24 Hours (Table) 02/02/21 16:00 Stool Culture - Preliminary Stool 02/02/21 16:09 Urine Culture - Preliminary Urine,Voided Assessment and Plan Plan: Abdominal pain, with alternating diarrhea and constipation, there is abnormality on computed tomography scan revealing possible narrowing at the site of anastomosis, surgical consultation was requested, will check stool studies Evidence of urinary tract infection Will start IV Rocephin 1 g every 24 hours Episode of chest pain serial EKGs and cardiac enzymes were ordered, cardiology consultation was requested Underlying history of hypertension Underlying history of hyperlipidemia At this time patient is admitted to medical floor She was started on IV fluid and IV antibiotics Cardiology consultation and general surgery consultation requested Home medications reviewed and reordered Will follow closely
[2021-02-03 12:09] LABS: Chol/HDL Ratio 2.7 Ratio; HDL Cholesterol 42.3 mg/dL (40.00-60.00); LDL Cholesterol,Calculated 51.5 mg/dL (0.0-131.0); VLDL Calculation 20.2 mg/dL (5.00-40.00)
--- NOTE | 2021-02-03 12:30 | P.GSCN ---
History of Present Illness Consult date: 02/03/21 Reason for Consult: Possible colorectal anastomotic stricture History of present illness: Is a 70-year-old female with previous history of low anterior resection for diverticulitis. Patient's CAT scan suggestive of a colorectal anastomotic st ricture. Patient that she's had trouble defecating over the last several months. Past Medical History Past Medical History: Atrial Fibrillation, Cancer, Hyperlipidemia Additional Past Medical History / Comment(s): Do Not Use Left Arm for IV or BP- left breast CA with lumpectomy, radiation and chemo 2002. 09/11/19 Diverticulitis w/ perforation, colostomy; developed AFib w/ RVR, pulmonary edema post-op. History of Any Multi-Drug Resistant Organisms: None Reported Past Surgical History: Bowel Resection, Breast Surgery, Cholecystectomy, Tonsillectomy Additional Past Surgical History / Comment(s): L breast lumpectomy 2002. Gomez proc w/ Colostomy 09/11/19 Past Anesthesia/Blood Transfusion Reactions: Motion Sickness Additional Past Anesthesia/Blood Transfusion Reaction / Comm: Pt has never recieved blood. Past Psychological History: No Psychological Hx Reported Smoking Status: Former smoker Past Alcohol Use History: Occasional Past Drug Use History: None Reported - Past Family History Father Family Medical History: Myocardial Infarction ([place]) Additional Family Medical History / Comment(s): Father had a [place] in his 60's. He from a post op hip infection at age 73 yrs. no gallbladder disease Mother Family Medical History: Eye Disorder, Hypertension Additional Family Medical History / Comment(s): Mother had glaucoma. She at age 82 yrs. Medications and Allergies Home Medications Medication Instructions Recorded Confirmed Type Simvastatin [Zocor] 20 mg PO HS 07/01/19 02/02/21 History Cyanocobalamin (Vitamin B-12) 1,000 mcg PO DAILY 01/24/20 02/02/21 History [Vitamin B-12] Metoprolol Tartrate [Lopressor] 25 mg PO BID 01/24/20 02/02/21 History Multivitamins, Thera [Multivitamin 1 tab PO WINN 01/24/20 02/02/21 History (formulary)] Docusate [Colace] 100 mg PO HS PRN 02/02/21 02/02/21 History Cefuroxime Axetil [Ceftin] 500 mg PO BID 7 Days #14 tab 02/03/21 Rx Allergies Allergy/AdvReac Type Severity Reaction Status Date / Time bee venom protein (honey bee) Allergy Anaphylaxis Verified 02/02/21 10:12 Surgical - Exam Vital Signs Temp Pulse Resp BP Pulse Ox 99 F 87 19 111/77 96 02/02/21 04:36 02/02/21 04:36 02/02/21 04:36 02/02/21 04:36 02/02/21 04:36 - General well developed, well nourished, no distress - Eyes PERRL - ENT normal pinna - Neck no masses - Respiratory normal expansion - Cardiovascular Rhythm: regular - Abdomen Abdomen: soft, non tender Results - Labs 02/03/21 04:41 02/03/21 04:41 Abnormal Lab Results - Last 24 Hours (Table) 02/03/21 Range/Units 04:41 Chloride 108 H (98-107) mmol/L Carbon Dioxide 20 L (22-30) mmol/L AST 94 H (14-36) U/L ALT 93 H (4-34) U/L Alkaline Phosphatase 163 H (38-126) U/L Microbiology - Last 24 Hours (Table) 02/02/21 16:00 Stool Culture - Preliminary Stool 02/02/21 16:09 Urine Culture - Preliminary Urine,Voided Diabetes panel 02/03/21 02/03/21 Range/Units 04:41 04:41 Sodium 137 (137-145) mmol/L Potassium 4.3 (3.5-5.1) mmol/L Chloride 108 H (98-107) mmol/L Carbon Dioxide 20 L (22-30) mmol/L BUN 7 (7-17) mg/dL Creatinine 0.62 (0.52-1.04) mg/dL Glucose 93 (74-99) mg/dL Calcium 9.7 (8.4-10.2) mg/dL AST 94 H (14-36) U/L ALT 93 H (4-34) U/L Alkaline Phosphatase 163 H (38-126) U/L Total Protein 6.6 (6.3-8.2) g/dL Albumin 3.6 (3.5-5.0) g/dL Triglycerides 101.00 (0.00-149.00) mg/dL HDL Cholesterol 42.30 (40.00-60.00) mg/dL Calcium panel 02/03/21 Range/Units 04:41 Calcium 9.7 (8.4-10.2) mg/dL Albumin 3.6 (3.5-5.0) g/dL Pituitary panel 02/03/21 Range/Units 04:41 Sodium 137 (137-145) mmol/L Potassium 4.3 (3.5-5.1) mmol/L Chloride 108 H (98-107) mmol/L Carbon Dioxide 20 L (22-30) mmol/L BUN 7 (7-17) mg/dL Creatinine 0.62 (0.52-1.04) mg/dL Glucose 93 (74-99) mg/dL Calcium 9.7 (8.4-10.2) mg/dL Adrenal panel 02/03/21 Range/Units 04:41 Sodium 137 (137-145) mmol/L Potassium 4.3 (3.5-5.1) mmol/L Chloride 108 H (98-107) mmol/L Carbon Dioxide 20 L (22-30) mmol/L BUN 7 (7-17) mg/dL Creatinine 0.62 (0.52-1.04) mg/dL Glucose 93 (74-99) mg/dL Calcium 9.7 (8.4-10.2) mg/dL Total Bilirubin 0.9 (0.2-1.3) mg/dL AST 94 H (14-36) U/L ALT 93 H (4-34) U/L Alkaline Phosphatase 163 H (38-126) U/L Total Protein 6.6 (6.3-8.2) g/dL Albumin 3.6 (3.5-5.0) g/dL Assessment and Plan Assessment: CAT scan suggestive of the colorectal SH. Patient is stable for discharge. We will schedule her for colonoscopy and balloon dilatation of her colorectal anastomosis stricture next week.
--- NOTE | 2021-02-03 13:18 | CONS ---
CONSULTATION This is a 70-year-old lady who has history of multiple abdominal issues and underwent a laparotomy, colostomy and subsequent reversal of colostomy. She came here with abdominal pain, was going for a CAT scan and then developed chest pain that lasted probably 2-3 minutes, sharp in nature and I was asked to see her. Troponins are normal. She is resting comfortably, has no further chest pain. She has had a history of atrial fibrillation in the past, but was seen by Dr. Izquierdo who suggested according to the patient to discontinue apixaban. She has no chest pain. She is resting comfortably. Abdominal pain has also improved. She is waiting to see Dr. Mcgrath. She may have a colonic stricture. From a cardiac standpoint. She looks quite stable. EKG is unremarkable. Please refer to the recent consults for other information. PHYSICAL EXAMINATION: On examination, blood pressure is 128/70, pulse rate is 70 per minute, regular. HEENT unremarkable. Fundus was not examined by me. Neck is supple. There is no JVD. I do not hear a carotid bruit. Heart exam reveals S1, S2 heard normally. No rub, murmur or gallop. Lungs are clear. Abdomen is soft, nontender. Lower extremities reveal palpable pulses, trace edema. Central nervous system is normal. EKG revealed sinus mechanism with minor nonspecific ST changes. IMPRESSION: 1. Atypical chest pain. 2. Abdominal discomfort, recent laparotomy and reversal of colostomy probable colonic stricture. 3. History of atrial fibrillation. 4. Hypertension. RECOMMENDATIONS: No intervention from a cardiac standpoint. Patient can be discharged when cleared by Dr. Mcgrath and advised follow with Dr. Izquierdo. MMODL / IJN: [id number] /
--- NOTE | 2021-02-06 10:34 | P.DS ---
Providers Date of admission: 02/02/21 09:25 Expected date of discharge: 02/03/21 Attending physician: Leslie Estrada Consults: 02/02/21 09:11 Consult Physician Urgent Consulting Provider: Den Mcgrath Consult Reason/Comments: Abdominal pain Do you want consulting provider notified?: Yes 02/02/21 09:16 Consult Physician Urgent Consulting Provider: [facility] Consult Reason/Comments: Chest pain Do you want consulting provider notified?: Yes Primary care physician: Leslie [facility] Course: Diagnosis on discharge: Abdominal pain, with alternating diarrhea and constipation, there is abnormality on computed tomography scan revealing possible narrowing at the site of anastomosis, surgical consultation was requested, will check stool studies Evidence of urinary tract infection Will start IV Rocephin 1 g every 24 hours Episode of chest pain serial EKGs and cardiac enzymes were ordered, cardiology consultation was requested Underlying history of hypertension Underlying history of hyperlipidemia Hospital course: Courtney Castellano, is a 70-year-old female who presented to [facility] emergency room with a chief complaint of lower abdominal pain, patient has a known history of diverticulitis with abscess formation with history of partial colectomy by Dr. Mcgrath about 1 year ago, patient stated that she has been having difficulty with her bowel movements with alternating diarrhea and constipation and lower abdominal pain for several months however her symptoms have worsened recently and she decided to come to emergency room. While in the emergency room patient had an episode of chest pain which she describes as an acute sharp pain in the lower part of her chest that lasted 10- 15 minutes. She was evaluated in the emergency room vital examination on presentation revealed a temperature of 99 pulse 87 respiration 19 and blood pressure of 111/77 and pulse ox 96% on room air Laboratory data revealed a white blood count of 13.4 hemoglobin 13.7 platelet count 370 sodium 134 potassium 4.4 chloride 102 CO2 22 BUN 11 creatinine 0.69 amylase and lipase were normal troponin level was normal urine analysis revealed evidence of urinary tract infection. Testing in the emergency room revealed computed tomography scan of the abdomen and pelvis was done in the emergency room and revealed possible narrowing or stricturing at the anastomosis site with mild to moderate distal colonic fecal status is proximal to the anastomosis. EKG was done in the emergency room and revealed no significant abnormality Patient was admitted to medical floor for further evaluation and treatment, cardiology consultation and surgical consultation were requested On 02/03/2021 patient's alert and oriented 3. Patient reports she still having occasional diarrhea. Awaiting surgical and cardiology input. Patient denies any further episodes of chest pain. Patient is positive for UTI currently maintained on Rocephin. Patient denies chest pain or shortness of breath. Patient denies nausea vomiting or diarrhea. Patient denies any urinary burning or frequency On 02/03/2021 patient cleared for discharge from surgical cardiology standpoint. Patient will be DC'd on Ceftin for urinary tract infection. Per surgical services possible colorectal anastomotic stricture patient will be scheduled for a colonoscopy and balloon dilation of colorectal and stenosis stricture this week per Dr. Mcgrath Plan - Discharge Summary Discharge Rx Participant: No New Discharge Prescriptions: New Cefuroxime Axetil [Ceftin] 500 mg PO BID 7 Days #14 tab Continue Simvastatin [Zocor] 20 mg PO HS Multivitamins, Thera [Multivitamin (formulary)] 1 tab PO WINN Cyanocobalamin (Vitamin B-12) [Vitamin B-12] 1,000 mcg PO DAILY Metoprolol Tartrate [Lopressor] 25 mg PO BID Docusate [Colace] 100 mg PO HS PRN PRN Reason: Constipation Discharge Medication List Simvastatin [Zocor] 20 mg PO HS 07/01/19 [History] Cyanocobalamin (Vitamin B-12) [Vitamin B-12] 1,000 mcg PO DAILY 01/24/20 [History] Metoprolol Tartrate [Lopressor] 25 mg PO BID 01/24/20 [History] Multivitamins, Thera [Multivitamin (formulary)] 1 tab PO WINN 01/24/20 [History] Docusate [Colace] 100 mg PO HS PRN 02/02/21 [History] Cefuroxime Axetil [Ceftin] 500 mg PO BID 7 Days #14 tab 02/03/21 [Rx] Follow up Appointment(s)/Referral(s): Leslie Estrada MD [Primary Care Provider] - 1-2 days Den Mcgrath MD [STAFF PHYSICIAN] - 1-2 Days Patient Instructions/Handouts: Acute Diarrhea (GEN), Acute Abdominal Pain (DC) Discharge Disposition: HOME SELF-CARE
== END 2021-02-03 13:09 | disposition home or self-care (01) ==
LOC: EC 04:32 → 6NMEDSUR 09:25
PROVIDERS: ADMIT Internal Medicine; ATTEND Internal Medicine
DX: R07.89 Other chest pain (principal); N39.0 Urinary tract infection, site not specified; K59.89 Other specified functional intestinal disorders; K59.00 Constipation, unspecified; R19.7 Diarrhea, unspecified; R94.8 Abnormal results of function studies of other organs and systems; K62.89 Other specified diseases of anus and rectum; I48.91 Unspecified atrial fibrillation; E78.5 Hyperlipidemia, unspecified; I10 Essential (primary) hypertension; N28.1 Cyst of kidney, acquired; Z79.899 Other long term (current) drug therapy; Z91.030 Bee allergy status; Z87.891 Personal history of nicotine dependence; Z85.3 Personal history of malignant neoplasm of breast; Z87.19 Personal history of other diseases of the digestive system; Z90.49 Acquired absence of other specified parts of digestive tract; Z92.3 Personal history of irradiation; Z92.21 Personal history of antineoplastic chemotherapy; Z83.511 Family history of glaucoma; Z83.1 Family history of other infectious and parasitic diseases; Z82.49 Family history of ischemic heart disease and other diseases of the circulatory system
CPT/HCPCS: 96365; 96372; 96375 ×2; 96361; 99285; 36415; 93005; 80061; 80053 ×2; 82150; 83605; 83690; 83735; 84100; 84484; 85025 ×2; 81001; 87324; 87086; 87045; 87046; 87635; 74177; G0378 ×2; J2270; J2405; J1650; J0696 ×2; J1885; Q9967

== ENCOUNTER → 2021-02-05 | Outpatient (CLI) | payer MEDICARE, OTHER ==
--- NOTE | 2021-02-05 12:34 | MM ---
Reason for exam: screening (asymptomatic). Last mammogram was performed 1 year and 2 months ago. History: Patient is postmenopausal, has history of breast cancer at age 52, and had first child at age 36. Family history of breast cancer in maternal aunt. Benign ultrasound-guided core biopsy of the right breast, August 18, 2003. Malignant stereotactic core biopsy of the left breast, August 05, 2002. Core biopsy of the left breast. 4 excisional biopsies of the right breast. Lumpectomy of the left breast. Chemotherapy. Radiation therapy of the left breast. Physical Findings: A clinical breast exam by your physician is recommended on an annual basis and results should be correlated with mammographic findings. MG 3D Screening Mammo W/Cad Bilateral CC and MLO view(s) were taken. XCCL view(s) were taken of the left breast. Prior study comparison: November 22, 2019, bilateral MG 3d screening mammo w/cad. September 04, 2014, bilateral MG diagnostic mammo w CAD IRAM. The breast tissue is heterogeneously dense. This may lower the sensitivity of mammography. Finding: Stable architectural distortion in the left breast consistent with known lumpectomy changes. There is a chronic nodularity in the left breast. There is no discrete abnormality. ASSESSMENT: Benign, BI-RAD 2 RECOMMENDATION: Routine screening mammogram of both breasts in 1 year.
== END | disposition home or self-care (01) ==
LOC: RADMAMWWP 09:04
PROVIDERS: ATTEND Internal Medicine
DX: Z12.31 Encounter for screening mammogram for malignant neoplasm of breast (principal); Z80.3 Family history of malignant neoplasm of breast; Z85.3 Personal history of malignant neoplasm of breast
CPT/HCPCS: 77063; 77067

== ENCOUNTER 2021-02-07 10:00 | Day surgery (SDC) | payer MEDICARE, OTHER ==
[2021-02-05 12:09] VITALS: BMI 24.8
[~2021-02-07 10:00] MED LIST changes: -ACETAMINOPHEN TAB 500 MG TAB PO ONE; -DEXAMETHASONE SOD PHOSPHATE 10 MG/ML 1 ML VIAL IV ONE; -HEPARIN SODIUM,PORCINE 5,000 UNIT/ML 1 ML VIAL SQ ONE; -HYDROmorphone 0.5 MG/0.5 ML SYRINGE IVP PRN; +LACTATED RINGERS 1,000 ML IV SCH; -LIDOCAINE 1% (10MG/ML) FOR IV START INTRADERMA PRN; -MIDAZOLAM 2 MG/2 ML VIAL IV PRN; -ONDANSETRON 4 MG/2 ML VIAL IVP ONE; -metroNIDAZOLE-NS PMX 500 MG in SALINE 1 100ML.BAG IVPB ONE
[2021-02-07 10:24] VITALS: TEMP 97.1
[2021-02-07] MEDS ORDERED: LIDOCAINE 1% (10MG/ML) FOR IV START INTRADERMA ONE (10:30)
[2021-02-07] MEDS ORDERED: LIDOCAINE 1% INJ 10MG/ML (20 ML MDV) ONE (11:30)
[2021-02-07] MEDS ORDERED: PROPOFOL 10 MG/ML 20 ML VIAL IV ONE (11:30)
--- NOTE | 2021-02-07 11:32 | P.GSHP ---
History of Present Illness H&P Date: 02/07/21 Chief Complaint: Colorectal anastomotic stricture, constipation This is a 70-year-old female. History of colon resection. Patient's of constipation. She has a colorectal anastomotic stricture. Past Medical History Past Medical History: Atrial Fibrillation, Cancer, Hyperlipidemia Additional Past Medical History / Comment(s): Do Not Use Left Arm for IV or BP- left breast CA with lumpectomy, radiation and chemo 2002. 09/11/19 Diverticulitis w/ perforation, colostomy; developed AFib w/ RVR, pulmonary edema post-op. History of Any Multi-Drug Resistant Organisms: None Reported Past Surgical History: Bowel Resection, Breast Surgery, Cholecystectomy, Tonsillectomy Additional Past Surgical History / Comment(s): L breast lumpectomy 2002. Gomez proc w/ Colostomy 09/11/19 Past Anesthesia/Blood Transfusion Reactions: Motion Sickness Additional Past Anesthesia/Blood Transfusion Reaction / Comment(s): Pt has never recieved blood. Past Psychological History: No Psychological Hx Reported Smoking Status: Former smoker Past Alcohol Use History: Occasional Past Drug Use History: None Reported - Past Family History Father Family Medical History: Myocardial Infarction ([place]) Additional Family Medical History / Comment(s): Father had a [place] in his 60's. He from a post op hip infection at age 73 yrs. no gallbladder disease Mother Family Medical History: Eye Disorder, Hypertension Additional Family Medical History / Comment(s): Mother had glaucoma. She at age 82 yrs. Medications and Allergies Home Medications Medication Instructions Recorded Confirmed Type Simvastatin [Zocor] 20 mg PO HS 07/01/19 02/07/21 History Cyanocobalamin (Vitamin B-12) 1,000 mcg PO DAILY 01/24/20 02/07/21 History [Vitamin B-12] Metoprolol Tartrate [Lopressor] 25 mg PO BID 01/24/20 02/07/21 History Multivitamins, Thera [Multivitamin 1 tab PO WINN 01/24/20 02/07/21 History (formulary)] Cefuroxime Axetil [Ceftin] 500 mg PO BID 7 Days #14 tab 02/03/21 02/07/21 Rx Allergies Allergy/AdvReac Type Severity Reaction Status Date / Time bee venom protein (honey bee) Allergy Anaphylaxis Verified 02/07/21 10:21 Surgical - Exam Vital Signs Temp Pulse Resp BP Pulse Ox 97.1 F L 65 17 142/72 100 02/07/21 10:24 02/07/21 10:24 02/07/21 10:24 02/07/21 10:24 02/07/21 10:24 - General well developed, well nourished, no distress - Eyes PERRL - ENT normal pinna - Neck no masses - Respiratory normal expansion - Cardiovascular Rhythm: regular - Abdomen Abdomen: soft, non tender Assessment and Plan Assessment: History of colorectal anastomotic stricture. We'll perform colonoscopy with balloon dilatation of the anastomotic stricture.
[2021-02-07] MEDS ORDERED: LACTATED RINGERS 1,000 ML IV ONE ×2 (11:45)
--- NOTE | 2021-02-07 11:47 | P.OP ---
Date of Procedure: 02/07/21 Preoperative Diagnosis: Colorectal anastomotic stricture Postoperative Diagnosis: Colorectal anastomotic stricture Procedure(s) Performed: Colonoscopy with balloon dilatation of colorectal stricture Anesthesia: MAC Surgeon: Den Mcgrath Pathology: none sent Condition: stable Disposition: PACU Description of Procedure: Patient received IV sedation. Digital rectal exam was performed which revealed no ebonized. The possible colonoscope was then placed patient anus and passed into the rectum. The the colorectal anastomosis visualized. There appeared to be a stricture was some scar tissue around the vessels. This point a 20 mm balloon was placed into the area of the anastomotic stricture. The anastomosis was then dilated. The anastomosis dilated to 20 mm. There was no evidence of any injury to the colon. This point the balloon was withdrawn. The anastomosis was visually larger after the balloon dilatation. Scope was withdrawn for patient.
[2021-02-07 11:53] VITALS: RESP 16
[2021-02-07 12:09] VITALS: BP 109/58; PULSE 98
[2021-02-07] MEDS ORDERED: IV FLUID CONTINUATION 700 ML IV ONE (12:14)
== END 2021-02-07 12:27 | disposition home or self-care (01) ==
LOC: ORWHC2ENDO 10:00
PROVIDERS: ATTEND Surgery
DX: I48.91 Unspecified atrial fibrillation (principal); E78.5 Hyperlipidemia, unspecified; Z98.0 Intestinal bypass and anastomosis status; Z90.49 Acquired absence of other specified parts of digestive tract; Z98.890 Other specified postprocedural states; Z87.891 Personal history of nicotine dependence; I25.2 Old myocardial infarction; Z85.3 Personal history of malignant neoplasm of breast; Z92.3 Personal history of irradiation; Z92.21 Personal history of antineoplastic chemotherapy; Z87.19 Personal history of other diseases of the digestive system; Z82.49 Family history of ischemic heart disease and other diseases of the circulatory system; Z83.511 Family history of glaucoma; Z83.79 Family history of other diseases of the digestive system; Z79.899 Other long term (current) drug therapy; Z91.030 Bee allergy status
CPT/HCPCS: 45340; J2001; J2704; C1726

== ENCOUNTER 2021-07-01 12:57 | Day surgery (SDC) | payer MEDICARE, OTHER ==
[2021-06-27 12:47] VITALS: BMI 25.0
[~2021-07-01 12:57] MED LIST changes: +LIDOCAINE 1% (10MG/ML) FOR IV START INTRADERMA PRN
[2021-07-01 13:47] VITALS: TEMP 98.2
[2021-07-01] MEDS ORDERED: PROPOFOL 10 MG/ML 20 ML VIAL IV ONE (14:22)
--- NOTE | 2021-07-01 14:27 | P.GSHP ---
History of Present Illness H&P Date: 07/01/21 Chief Complaint: Colorectal anastomotic stricture Is a 70-year-old female who has a previous history of diverticulitis. Patient underwent low anterior resection. The colorectal anastomotic stricture. She presents today for evaluation possible balloon dilatation Past Medical History Past Medical History: Atrial Fibrillation, Cancer, Hyperlipidemia Additional Past Medical History / Comment(s): Do Not Use Left Arm for IV or BP- left breast CA with lumpectomy, radiation and chemo 2002. 09/11/19 Diverticulitis w/ perforation, colostomy; developed AFib w/ RVR, pulmonary edema post-op. History of Any Multi-Drug Resistant Organisms: None Reported Past Surgical History: Bowel Resection, Breast Surgery, Cholecystectomy, Tonsillectomy Additional Past Surgical History / Comment(s): L breast lumpectomy 2002. Gomez proc w/ Colostomy 09/11/19, REVERSAL OF COLOSTOMY, COLONOSCOPY Past Anesthesia/Blood Transfusion Reactions: Motion Sickness Additional Past Anesthesia/Blood Transfusion Reaction / Comment(s): Pt has never received blood. Smoking Status: Former smoker - Past Family History Father Family Medical History: Myocardial Infarction ([place]) Additional Family Medical History / Comment(s): Father had a [place] in his 60's. He from a post op hip infection at age 73 yrs. no gallbladder disease Mother Family Medical History: Eye Disorder, Hypertension Additional Family Medical History / Comment(s): Mother had glaucoma. She at age 82 yrs. Medications and Allergies Home Medications Medication Instructions Recorded Confirmed Type Simvastatin [Zocor] 20 mg PO HS 07/01/19 07/01/21 History Cyanocobalamin (Vitamin B-12) 1,000 mcg PO DAILY 01/24/20 07/01/21 History [Vitamin B-12] Metoprolol Tartrate [Lopressor] 25 mg PO BID 01/24/20 07/01/21 History Multivitamins, Thera [Multivitamin 1 tab PO WINN 01/24/20 07/01/21 History (formulary)] Allergies Allergy/AdvReac Type Severity Reaction Status Date / Time bee venom protein (honey bee) Allergy Anaphylaxis Verified 07/01/21 13:31 Surgical - Exam Vital Signs Temp Pulse Resp BP Pulse Ox 98.2 F 96 18 158/82 98 07/01/21 13:32 07/01/21 13:32 07/01/21 13:32 07/01/21 13:32 07/01/21 13:32 - General well developed, well nourished, no distress - Eyes PERRL - ENT normal pinna - Neck no masses - Respiratory normal expansion - Cardiovascular Rhythm: regular - Abdomen Abdomen: soft, non tender Assessment and Plan Assessment: Possible colonic colorectal anastomosis. We'll perform colonoscopy with balloon dilatation.
--- NOTE | 2021-07-01 14:42 | P.OP ---
Date of Procedure: 07/01/21 Preoperative Diagnosis: Colorectal anastomotic stricture Postoperative Diagnosis: Colorectal anastomotic stricture Procedure(s) Performed: Colonoscopy with balloon dilatation of colorectal anastomotic stricture Anesthesia: MAC Surgeon: Den Mcgrath Pathology: none sent Condition: stable Disposition: PACU Description of Procedure: The patient's placed on the endoscopy table in the lateral position. She received IV sedation. Digital rectal exam was performed which revealed no abnormalities. Flexible colonoscope was then placed patient anus and passed into the rectum. The colorectal anastomosis visualized. This was strictured. This point a 20 mm balloon was placed into the anastomotic stricture. The balloon was then dilated. This was done sequentially twice. The balloon was then withdrawn. The anastomotic stricture was successfully dilated. At this point the scope was withdrawn. She tolerated the procedure well.
[2021-07-01 14:52] VITALS: RESP 16
[2021-07-01 15:02] VITALS: BP 107/64; PULSE 72
== END 2021-07-01 15:30 | disposition home or self-care (01) ==
LOC: ORWHC2ENDO 12:57
PROVIDERS: ATTEND Surgery
DX: K91.89 Other postprocedural complications and disorders of digestive system (principal); I48.91 Unspecified atrial fibrillation; E78.5 Hyperlipidemia, unspecified; Z85.3 Personal history of malignant neoplasm of breast; Z92.3 Personal history of irradiation; Z92.21 Personal history of antineoplastic chemotherapy; Z87.19 Personal history of other diseases of the digestive system; Z87.09 Personal history of other diseases of the respiratory system; Z98.890 Other specified postprocedural states; Z90.49 Acquired absence of other specified parts of digestive tract; Z87.891 Personal history of nicotine dependence; Z82.49 Family history of ischemic heart disease and other diseases of the circulatory system; Z83.511 Family history of glaucoma; Z79.899 Other long term (current) drug therapy; Z91.030 Bee allergy status
CPT/HCPCS: 45386; J2704; C1726

== ENCOUNTER → 2022-02-06 | Outpatient (CLI) | payer MEDICARE, OTHER ==
--- NOTE | 2022-02-07 08:11 | MM ---
Reason for Exam: Screening (asymptomatic). Last screening mammogram was performed 12 month(s) ago. Patient History: Menarche at age 14. First Full-Term at age 36. Late child-bearing (after 30). Postmenopausal. Breast cancer, left, age 52. Lumpectomy on the Left side. Core Biopsy on the Left side. Excisional Biopsy on the Right side. Excisional Biopsy on the Right side. Excisional Biopsy on the Right side. Excisional Biopsy on the Right side. 08/18/2003, Benign Ultrasound-Guided Core Biopsy on the right side. 08/05/2002, Malignant Stereotactic Core Biopsy on the left side. Radiation Therapy, left. Chemotherapy. Maternal aunt had breast cancer. Prior Study Comparison: 09/04/2014 Bilateral Diagnostic Mammogram, [facility]. 11/22/2019 Bilateral Screening Mammogram, [facility]. 02/05/2021 Bilateral Screening Mammogram, [facility]. Tissue Density: The breast tissue is heterogeneously dense. This may lower the sensitivity of mammography. Findings: Analyzed By CAD. No new suspicious mass within either breast. Postsurgical changes of the left breast with surgical clips and architectural distortion. Benign calcifications within both breasts. New grouped punctate calcifications within the outer upper quadrant of the left breast. This is at posterior depth. Overall Assessment: Incomplete: need additional imaging evaluation, BI-RAD 0 Management: Diagnostic Mammogram of the left breast. A clinical breast exam by your physician is recommended on an annual basis and results should be correlated with mammographic findings. [facility] will attempt to contact patient to return for supplemental views and ultrasound if indicated. Electronically signed and approved by: Jose Connors D.O.
== END | disposition home or self-care (01) ==
LOC: RADMAMWWP 08:58
PROVIDERS: ATTEND Internal Medicine
DX: Z12.31 Encounter for screening mammogram for malignant neoplasm of breast (principal)
CPT/HCPCS: 77063; 77067

== ENCOUNTER → 2022-02-17 | Outpatient (CLI) | payer MEDICARE, OTHER ==
--- NOTE | 2022-02-17 11:22 | MM ---
Reason for Exam: Additional evaluation requested from abnormal screening. Last screening mammogram was performed less than 1 month ago. Patient History: Menarche at age 14. First Full-Term at age 36. Late child-bearing (after 30). Postmenopausal. Breast cancer, left, age 52. Lumpectomy on the Left side. Core Biopsy on the Left side. Excisional Biopsy on the Right side. Excisional Biopsy on the Right side. Excisional Biopsy on the Right side. Excisional Biopsy on the Right side. 08/18/2003, Benign Ultrasound-Guided Core Biopsy on the right side. 08/05/2002, Malignant Stereotactic Core Biopsy on the left side. Radiation Therapy, left. Chemotherapy. Maternal aunt had breast cancer. Prior Study Comparison: 11/22/2019 Bilateral Screening Mammogram, [facility]. 02/05/2021 Bilateral Screening Mammogram, [facility]. 02/06/2022 Bilateral MG 3D screening mammo w/cad, [facility]. Tissue Density: Left: The breast tissue is heterogeneously dense. This may lower the sensitivity of mammography. Findings: Analyzed By CAD. Coarse heterogenous grouped calcifications demonstrated within the upper outer left breast middle depth. These are new from prior examination. Postsurgical changes with surgical clips identified. Benign round calcifications redemonstrated within the left breast. Overall Assessment: Suspicious, BI-RAD 4 Management: Stereotactic Core Biopsy of the left breast. A clinical breast exam by your physician is recommended on an annual basis and results should be correlated with mammographic findings. This exam should not preclude additional follow-up of suspicious palpable abnormalities. Results were given to the patient verbally at the time of exam. Electronically signed and approved by: Jose Connors D.O.
== END | disposition home or self-care (01) ==
LOC: RADMAMWWP 10:05
PROVIDERS: ATTEND Internal Medicine
DX: R92.8 Other abnormal and inconclusive findings on diagnostic imaging of breast (principal); Z78.0 Asymptomatic menopausal state; Z80.3 Family history of malignant neoplasm of breast
CPT/HCPCS: 77065; G0279; 77061

== ENCOUNTER → 2022-02-27 | Day surgery (SDC) | payer MEDICARE, OTHER ==
[2022-02-27 07:29] VITALS: RESP 16
[2022-02-27 08:29] VITALS: BP 131/80; PULSE 56; TEMP 98.2
--- NOTE | 2022-03-05 10:28 | MM ---
Prior Study Comparison: 02/05/2021 Bilateral Screening Mammogram, [facility]. 02/06/2022 Bilateral MG 3D screening mammo w/cad, [facility]. 02/17/2022 Left MG 3D work up w/cad LT, [facility]. Pathology Description: Marker Left Behind. Approach: Lateral to Medial Needle Type: Eviva Cores: 6 Skin Nicks: 1 Gauge: 9 no problems The procedure of stereotactic guided core biopsy was explained to the patient. Benefits, alternatives, and risks were discussed. An informed consent was then obtained. Patient with history of prior lumpectomy for left breast cancer. Microcalcifications at the lumpectomy site targeted. The shortness pathway for biopsy was chosen. Shortness pathway was a lateral approach. I performed the localization, followed by the remainder of the procedure. A vacuum assisted biopsy gun was used to obtain 6 core samples. The patient tolerated the procedure well without any immediate complication. The patient was kept in the radiology department for short stay after the procedure and then discharged home in stable condition. Targeted calcifications are identified in specimen mammogram. Post biopsy mammogram shows the clip to appear in satisfactory position relative to the targeted area of concern on the preprocedure images. Impression: SUCCESSFUL, UNCOMPLICATED STEREOTACTIC GUIDED CORE BIOPSY OF NEW MICROCALCIFICATIONS AT THE PREVIOUS UPPER OUTER QUADRANT LEFT BREAST LUMPECTOMY SITE. Pathology Results: Result: Malignant, Ductal carcinoma in situ, comedo type. 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 See Surgical Pathology Cancer Case Summary and Comment. Overall Assessment: Malignant Management: Surgical Consultation of the left breast. Electronically signed and approved by: Toby Pandya M.D. Radiologist
== END ==
LOC: RADMAMWWP 07:09
PROVIDERS: ATTEND Internal Medicine
DX: C50.912 Malignant neoplasm of unspecified site of left female breast (principal)
CPT/HCPCS: 88305; 88342; 88341; 19081; A4648; J2001

== ENCOUNTER → 2022-03-26 | Outpatient (CLI) | payer MEDICARE, OTHER ==
[2022-03-26 08:49] VITALS: BP 125/81; PULSE 71; RESP 16; TEMP 97.7
--- NOTE | 2022-03-26 09:23 | P.GSHP ---
History of Present Illness H&P Date: 03/26/22 Chief Complaint: left breast invasive ductal cancer Courtney is a 71 year old whtie female seen in consultation for DR. Petit regarding a recurrent left breast cancer. Left breast cancer in 2002. This was a T2 N1 M0 ER [place] negative HER-2 positive. She was treated with before meals 4 and radiation therapy to the left breast. She underwent a screening mammogram on . This revealed some concern with calcifications in the left breast. On [id number] left breast diagnostic mammogram was performed which confirmed the calcifications of concern in the left breast. Stereotactic core biopsy was then performed on [id number]. Pathology from this revealed multifocal microinvasive moderately differentiated ductal carcinoma arising in the background of high- grade DCIS. She underwent an ultrasound of the left axilla at [place] on [id number] which was negative. The patient does not feel any new lumps masses or nodules of concern in either breast. She gets mammograms routinely in this was a new finding since last year. She is not complaining of any recent trauma or infection of the breast. She is complaining of any nipple discharge or skin changes. Caffeine: 2 cups coffee/ several times a week nicotine: none; stopped 35 years ago; used to smoke 1/2 PPD chocolate: daily BCP: none hormones: none Family History: maternal aunt: breast cancer Hormonal History: meanrche: 14 , age at : 37; breast fed: no menopause: 51 Surgical History: Cholecystectomy Colon resection; perforated diverticulitis Left breast lumpectomy and sentinel node possibly axillary node dissection Colostomy reversal Right breast biopsy in the operating room several times Medical History: glaucoma AFIB off blood thinners high cholesterol Social History: nicotine: as above alcohol: with dinner; several times a week drugs: none - Constitutional Constitutional: Denies chills, Denies fever - EENT Eyes: bilateral as per HPI Ears: bilateral: tinnitus, deny: decreased hearing Ears, nose, mouth and throat: Denies headache, Denies sore throat - Breasts Breasts: bilateral: as per HPI - Cardiovascular Cardiovascular: Reports as per HPI - Respiratory Respiratory: Denies cough, Denies 7 - Gastrointestinal Gastrointestinal: Reports as per HPI, Reports constipation, Reports diarrhea - Genitourinary (Female) Genitourinary: Denies dysuria, Denies hematuria - Menstruation Menstruation: Reports postmenopausal - Musculoskeletal Comment: heel spur Musculoskeletal: Reports myalgias - Integumentary Integumentary: Denies pruritus, Denies rash - Neurological Neurological: Denies numbness, Denies weakness - Psychiatric Psychiatric: Denies anxiety, Denies depression - Endocrine Endocrine: Denies fatigue, Denies weight change - Hematologic/Lymphatic Comment: none - Allergic/Immunologic Allergic/Immunologic: Reports as per HPI Past Medical History Past Medical History: Atrial Fibrillation, Cancer, Hyperlipidemia Additional Past Medical History / Comment(s): Do Not Use Left Arm for IV or BP- left breast CA with lumpectomy, radiation and chemo 2002. 09/11/19 Diverticulitis w/ perforation, colostomy; developed AFib w/ RVR, pulmonary edema post-op. History of Any Multi-Drug Resistant Organisms: None Reported Past Surgical History: Bowel Resection, Breast Surgery, Cholecystectomy, Tonsillectomy Additional Past Surgical History / Comment(s): L breast lumpectomy 2002. [place] proc w/ Colostomy 09/11/19, REVERSAL OF COLOSTOMY, COLONOSCOPY Past Anesthesia/Blood Transfusion Reactions: Motion Sickness Additional Past Anesthesia/Blood Transfusion Reaction / Comment(s): Pt has never received blood. Past Psychological History: No Psychological Hx Reported Additional Psychological History / Comment(s): Pt resides with her spouse of 33 yrs. She is independent. She uses no assistive device. She drives. Smoking Status: Former smoker Past Alcohol Use History: Occasional Additional Past Alcohol Use History / Comment(s): Pt states she started smoking in 1969 and quit in 1990. Pt has 1-2 glasses of wine/beer almost daily. Past Drug Use History: None Reported - Past Family History Father Family Medical History: Myocardial Infarction ([place]) Additional Family Medical History / Comment(s): Father had a [place] in his 60's. He from a post op hip infection at age 73 yrs. no gallbladder disease Mother Family Medical History: Eye Disorder, Hypertension Additional Family Medical History / Comment(s): Mother had glaucoma. She at age 82 yrs. Medications and Allergies Home Medications Medication Instructions Recorded Confirmed Type Simvastatin [Zocor] 20 mg PO HS 07/01/19 03/26/22 History Cyanocobalamin (Vitamin B-12) 1,000 mcg PO DAILY 01/24/20 03/26/22 History [Vitamin B-12] Metoprolol Tartrate [Lopressor] 25 mg PO BID 01/24/20 03/26/22 History Multivitamins, Thera [Multivitamin 1 tab PO WINN 01/24/20 03/26/22 History (formulary)] Allergies Allergy/AdvReac Type Severity Reaction Status Date / Time bee venom protein (honey bee) Allergy Anaphylaxis Verified 03/26/22 08:45 Surgical - Exam Vital Signs Temp Pulse Resp BP Pulse Ox 97.7 F 71 16 125/81 97 03/26/22 08:46 03/26/22 08:46 03/26/22 08:46 03/26/22 08:46 03/26/22 08:46 BMI: 27.4 - General no distress - Eyes normal ocular movement - ENT no hearing loss - Neck trachea midline - Respiratory normal respiratory effort - Cardiovascular Heart Sounds: normal: S1, S2 - Abdomen Abdomen: soft, non tender, no guarding, no rigid, no rebound - Integumentary normal turgor - Neurologic no disoriented, no combative - Musculoskeletal normal gait - Psychiatric oriented to time, oriented to person, oriented to place, speech is normal, memory intact Breast Exam: BRA: 34C Inspection: Asymmetry of the breast secondary to left breast lumpectomy and radiation therapy, bilateral grade 2 ptosis Palpation: Right breast: Multiple positional exam fibrocystic changes no dominant masses or nodules of concern Right axilla: No adenopathy of concern Left breast: Multiple positional exam post radiation and surgical changes, no discrete dominant masses or nodules of concern Left axilla: No adenopathy of concern Results Mammogram reviewed with Dr. Perrin Assessment and Plan Assessment: Impression: 1. Patient treated for left breast invasive ductal carcinoma status post lumpectomy/radiation therapy/chemotherapy in 2002 2. Recent bilateral mammogram revealing increased microcalcifications in the left breast, biopsy proven invasive multifocal carcinoma 3. Atrial fibrillation 4. Coma 5. High cholesterol Plan: I will discuss with the patient and her treatment options Presentation of case at tumor board CC: Dr. Estrada
== END | disposition home or self-care (01) ==
LOC: WWCWWP 08:35
PROVIDERS: ATTEND Surgery
DX: Z53.9 Procedure and treatment not carried out, unspecified reason (principal)

== ENCOUNTER → 2022-04-25 | Outpatient (CLI) | payer MEDICARE, OTHER ==
[2022-04-25 09:33] VITALS: BP 150/87; PULSE 67; RESP 17; TEMP 97.6
--- NOTE | 2022-04-25 10:01 | P.PN ---
Subjective Progress Note Date: 04/25/22 Principal diagnosis: Left breast multifocal microinvasive ductal carcinoma with high-grade ductal carcinoma in situ Courtney is a 71 year old white female seen in consultation for DR. Petit regarding a recurrent left breast cancer. Left breast cancer in 2002. This was a T2 N1 M0 ER [place] negative HER-2 positive. She was treated with before meals 4 and radiation therapy to the left breast. She underwent a screening mammogram on . This revealed some concern with calcifications in the left breast. On [id number] left breast diagnostic mammogram was performed which confirmed the calcifications of concern in the left breast. Stereotactic core biopsy was then performed on [id number]. Pathology from this revealed multifocal microinvasive moderately differentiated ductal carcinoma arising in the background of high- grade DCIS. She underwent an ultrasound of the left axilla at [place] on [id number] which was negative. The patient does not feel any new lumps masses or nodules of concern in either breast. She gets mammograms routinely in this was a new finding since last year. She is not complaining of any recent trauma or infection of the breast. She is not complaining of any nipple discharge or skin changes. note Dr. Petit 03-13-22 reviewed Patient declined genetic testing patient case presented at tumor board on 04-08-22 recommendation mastectomy with sentinel lymph node biopsy Caffeine: 2 cups coffee/ several times a week nicotine: none; stopped 35 years ago; used to smoke 1/2 PPD chocolate: daily BCP: none hormones: none Family History: maternal aunt: breast cancer Hormonal History: meanrche: 14 , age at : 37; breast fed: no menopause: 51 Surgical History: Cholecystectomy Colon resection; perforated diverticulitis Left breast lumpectomy and sentinel node possibly axillary node dissection Colostomy reversal Right breast biopsy in the operating room several times Medical History: glaucoma AFIB off blood thinners high cholesterol Social History: nicotine: as above alcohol: with dinner; several times a week drugs: none - Constitutional Constitutional: Denies chills, Denies fever - EENT Eyes: bilateral as per HPI Ears: bilateral: tinnitus, deny: decreased hearing Ears, nose, mouth and throat: Denies headache, Denies sore throat - Breasts Breasts: bilateral: as per HPI - Cardiovascular Cardiovascular: Reports as per HPI - Respiratory Respiratory: Denies cough, Denies 7 - Gastrointestinal Gastrointestinal: Reports as per HPI, Reports constipation, Reports diarrhea - Genitourinary (Female) Genitourinary: Denies dysuria, Denies hematuria - Menstruation Menstruation: Reports postmenopausal - Musculoskeletal Comment: heel spur Musculoskeletal: Reports myalgias - Integumentary Integumentary: Denies pruritus, Denies rash - Neurological Neurological: Denies numbness, Denies weakness - Psychiatric Psychiatric: Denies anxiety, Denies depression - Endocrine Endocrine: Denies fatigue, Denies weight change - Hematologic/Lymphatic Comment: none - Allergic/Immunologic Allergic/Immunologic: Reports as per HPI Past Medical History Past Medical History: Atrial Fibrillation, Cancer, Hyperlipidemia Additional Past Medical History / Comment(s): Do Not Use Left Arm for IV or BP- left breast CA with lumpectomy, radiation and chemo 2002. 09/11/19 Diverticulitis w/ perforation, colostomy; developed AFib w/ RVR, pulmonary edema post-op. History of Any Multi-Drug Resistant Organisms: None Reported Past Surgical History: Bowel Resection, Breast Surgery, Cholecystectomy, Tonsillectomy Additional Past Surgical History / Comment(s): L breast lumpectomy 2002. Gomez proc w/ Colostomy 09/11/19, REVERSAL OF COLOSTOMY, COLONOSCOPY Past Anesthesia/Blood Transfusion Reactions: Motion Sickness Additional Past Anesthesia/Blood Transfusion Reaction / Comment(s): Pt has never received blood. Past Psychological History: No Psychological Hx Reported Additional Psychological History / Comment(s): Pt resides with her spouse of 33 yrs. She is independent. She uses no assistive device. She drives. Smoking Status: Former smoker Past Alcohol Use History: Occasional Additional Past Alcohol Use History / Comment(s): Pt states she started smoking in 1969 and quit in 1990. Pt has 1-2 glasses of wine/beer almost daily. Past Drug Use History: None Reported - Past Family History Father Family Medical History: Myocardial Infarction ([place]) Additional Family Medical History / Comment(s): Father had a [place] in his 60's. He from a post op hip infection at age 73 yrs. no gallbladder disease Mother Family Medical History: Eye Disorder, Hypertension Additional Family Medical History / Comment(s): Mother had glaucoma. She at age 82 yrs. Medications and Allergies Home Medications Medication Instructions Recorded Confirmed Type Simvastatin [Zocor] 20 mg PO HS 07/01/19 03/26/22 History Cyanocobalamin (Vitamin B-12) 1,000 mcg PO DAILY 01/24/20 03/26/22 History [Vitamin B-12] Metoprolol Tartrate [Lopressor] 25 mg PO BID 01/24/20 03/26/22 History Multivitamins, Thera [Multivitamin 1 tab PO WINN 01/24/20 03/26/22 History (formulary)] Allergies Allergy/AdvReac Type Severity Reaction Status Date / Time bee venom protein (honey bee) Allergy Anaphylaxis Verified 03/26/22 08:45 Objective - Vital Signs Vital signs: Vital Signs Temp 97.6 F 04/25/22 09:31 Pulse 67 04/25/22 09:31 Resp 17 04/25/22 09:31 BP 150/87 04/25/22 09:31 Pulse Ox 97 04/25/22 09:31 FiO2 Intake & Output 04/24/22 04/25/22 04/25/22 18:59 06:59 18:59 Weight 77.111 kg - Constitutional General appearance: Present: cooperative - EENT Eyes: Present: EOMI ENT: Present: hearing grossly normal - Neck Neck: Present: normal ROM - Respiratory Respiratory: bilateral: CTA - Cardiovascular Rhythm: regular Heart sounds: normal: S1, S2 - Gastrointestinal General gastrointestinal: Present: soft - Integumentary Integumentary: Present: normal turgor - Musculoskeletal Musculoskeletal: Present: gait normal - Psychiatric Psychiatric: Present: A&O x's 3, appropriate affect, intact judgment & insight - Additional findings Additional findings: Breast Exam: BRA: 34C Inspection: Asymmetry of the breast secondary to left breast lumpectomy and radiation therapy, bilateral grade 2 ptosis Palpation: Right breast: Multiple positional exam fibrocystic changes no dominant masses or nodules of concern Right axilla: No adenopathy of concern Left breast: Multiple positional exam post radiation and surgical changes, no discrete dominant masses or nodules of concern Left axilla: No adenopathy of concern Assessment and Plan Assessment: Assessment: Impression: 1. Patient treated for left breast invasive ductal carcinoma status post lumpectomy/radiation therapy/chemotherapy in 2002 2. Recent bilateral mammogram revealing increased microcalcifications in the left breast, biopsy proven invasive multifocal carcinoma 3. Atrial fibrillation 4. High cholesterol Plan: Left breast mastectomy, left sentinel node injection, left sentinel node biopsy, possible left axillary node dissection; she is not going to have reconstruction, and is not interested in seeing a plastic surgeon. Risk and benefits of the procedure discussed with the patient and her . They understand that at the age of 71 sentinel node biopsy may be of limited value but wish this to be done. Risks include but are not limited to bleeding, infection, reaction to the anesthetic. Additionally the patient could've developed lymphedema, injury to the thoracodorsal or long thoracic nerves, CC: Dr. Estrada Additional CC's: Leslie Estrada
== END ==
LOC: WWCWWP 08:52
PROVIDERS: ATTEND Surgery
DX: C50.912 Malignant neoplasm of unspecified site of left female breast (principal); I48.91 Unspecified atrial fibrillation; E78.00 Pure hypercholesterolemia, unspecified; E78.5 Hyperlipidemia, unspecified; Z91.030 Bee allergy status; Z87.891 Personal history of nicotine dependence

== ENCOUNTER 2022-05-15 11:56 | Day surgery (SDC) | payer MEDICARE, OTHER ==
[2022-05-12 11:57] VITALS: BMI 27.4
[~2022-05-15 11:56] MED LIST changes: +HEPARIN SODIUM,PORCINE/PF 5,000 UNIT/0.5 ML SYRINGE SQ PRN; -LACTATED RINGERS 1,000 ML IV SCH; -LIDOCAINE 1% (10MG/ML) FOR IV START INTRADERMA PRN; +Pre Op ABX Message 1 EACH MISC MISCELLANE ONE
[2022-05-15] MEDS ORDERED: LIDOCAINE 1% (10MG/ML) FOR IV START INTRADERMA PRN (12:23)
[2022-05-15] MEDS ORDERED: DEXAMETHASONE SOD PHOSPHATE 4 MG/ML 1 ML VIAL IV ONE (12:23)
[2022-05-15] MEDS ORDERED: LACTATED RINGERS 1,000 ML IV SCH (12:23)
[2022-05-15] MEDS ORDERED: HYDROmorphone 0.5 MG/0.5 ML SYRINGE IVP PRN (12:23)
[2022-05-15] MEDS ORDERED: ONDANSETRON 4 MG/2 ML VIAL IVP ONE (12:23)
[2022-05-15] MEDS ORDERED: PROPOFOL 10 MG/ML 20 ML VIAL IV ONE (13:58)
[2022-05-15] MEDS ORDERED: MIDAZOLAM 2 MG/2 ML VIAL ONE (13:58)
[2022-05-15] MEDS ORDERED: LIDOCAINE 2% INJ 20 MG/ML (2 ML VIAL) ONE (13:58)
[2022-05-15] MEDS ORDERED: HYDROmorphone (PF) 1 MG/ML ONE (13:58)
[2022-05-15] MEDS ORDERED: fentaNYL (PF) 50 MCG/ML 2 ML AMP ONE (13:58)
[2022-05-15] MEDS ORDERED: ePHEDrine 50 MG/ML 1 ML VIAL ONE (13:58)
[2022-05-15] MEDS ORDERED: SUCCINYLCHOLINE CHLORIDE 200 MG/10 ML VIAL IV ONE (13:58)
[2022-05-15] MEDS ORDERED: SODIUM CHLORIDE 0.9% 100 ML with ceFAZolin 2 GM IV ONE ×2 (14:26)
--- NOTE | 2022-05-15 15:18 | NM ---
EXAMINATION TYPE: NM sentinel node injection DATE OF EXAM: 05/15/2022 COMPARISON: Correlation mammogram 02/17/2022 HISTORY: 71-year-old female with left breast cancer, planned mastectomy. TECHNIQUE AND FINDINGS: The procedure of sentinel lymph node injection was explained to the patient. The benefits, alternatives, and risks were discussed. An informed consent was then obtained. Overlying skin is cleaned with sterile alcohol. Following this, 509 uCi Tc99m Tilmanocept was inject ed in the upper outer aspect of the left nipple intradermally. The patient tolerated the procedure well without any immediate complication. The patient was kept in the radiology department for short stay after the procedure and then taken to surgery for surgical p rocedure what is presumed intraoperative gamma probe will be used for sentinel lymph node detection. IMPRESSION: Left breast radiotracer injection for sentinel node localization as above.
[2022-05-15] MEDS ORDERED: BUPIVACAINE (PF) 0.5% 30 ML VIAL SQ ONE (15:33)
[2022-05-15] MEDS ORDERED: HYDROcodone/APAP 5-325MG 1 EACH TAB PO PRN (15:40)
[2022-05-15] MEDS ORDERED: ONDANSETRON 4 MG/2 ML VIAL IVP PRN (15:40)
[2022-05-15] MEDS ORDERED: MELATONIN 3 MG TABLET PO PRN (15:40)
[2022-05-15] MEDS ORDERED: HYDROmorphone 1 MG/ML 1 ML SYRINGE IVP PRN (15:40)
[2022-05-15] MEDS ORDERED: NALOXONE 0.4 MG/ML 1 ML VIAL IV PRN (15:40)
--- NOTE | 2022-05-15 15:40 | P.OP ---
Date of Procedure: 05/15/22 Preoperative Diagnosis: Right breast invasive ductal carcinoma/DCIS Postoperative Diagnosis: Same Procedure(s) Performed: left breast mastectomy Anesthesia: JOSE Surgeon: Ana María Doan Estimated Blood Loss (ml): 10 IV fluids (ml): 600 Pathology: other (Left breast/left axillary tail) Condition: stable Disposition: floor Indications for Procedure: Biopsy-proven left breast ductal carcinoma in situ with multfocal microinvasion Operative Findings: Radiated and surgical scars and breast tissue Description of Procedure: The patient is a 71-year-old white female who is status post left breast [place] mpectomy and radiation therapy in 2002 for a left breast T2 N1 invasive carcinoma. She was recently noticed with a recurrence of mitral invasive multifocal moderately differentiated ductal carcinoma in a background of high- grade DCIS. An ultrasound of the axilla on [id number] was negative. The plan was for a mastectomy with an attempt at a sentinel node biopsy of one was identified. In the preoperative area the patient had injection of radiotracer in the periareolar region. She was brought to the operative suite and following induction of anesthesia the left breast and axilla were prepped and draped in a sterile fashion. The neoprobe was used to interrogate the breast and there was radioactivity in the tail of the breast but not in the axilla. The patient had undergone previous axillary dissection. The markings were placed for superior and inferior flaps. The flap was developed first. The incision was made through the skin and subcutaneous tissue. A superior flap was developed in the plane between the breast tissue and the subcutaneous tissue. This. The area of prior resection and there were radiation changes as well. Following this the inferior flap was developed in the same fashion. The breast was taken from medial to lateral off the pectoralis muscle being careful to maintain hemostasis using the harmonic scalpel as well as electrocautery device. At the level of the axilla there was scar tissue and radiated changes and no evidence of any palpable abnormality. There was no evidence of any radiotracer in the axilla. The tail of the breast there was some increased radioactivity and this was sent separately from the breast. After assured that hemostasis was attained the wound was well irrigated. A KATARINA drain was placed. The subcutaneous tissue was closed using 3-0 Vicryl suture. The skin was closed using 4-0 Monocryl. Steri-Strips are applied. The patient tolerated the procedure in stable condition. All instrument and sponge counts were correct at the end of the case.
[2022-05-15] MEDS: SODIUM CHLORIDE 0.9% 1,000 ML IV SCH (18:40)
[2022-05-15] MEDS ORDERED: ATORVASTATIN 10 MG TAB PO SCH (21:00)
[2022-05-15] MEDS: METOPROLOL TARTRATE 25 MG TAB PO SCH (21:17)
[2022-05-16] MEDS: HEPARIN SODIUM,PORCINE/PF 5,000 UNIT/0.5 ML SYRINGE SQ SCH ×2 (00:32→08:01)
[2022-05-16] MEDS: SODIUM CHLORIDE 0.9% 1,000 ML IV SCH (02:17)
[2022-05-16 07:59] VITALS: BP 136/74; RESP 16; TEMP 98.1
[2022-05-16 08:00] VITALS: PULSE 68
[2022-05-16] MEDS: METOPROLOL TARTRATE 25 MG TAB PO SCH (08:01)
--- NOTE | 2022-05-16 08:51 | P.PN ---
Subjective Progress Note Date: 05/16/22 Principal diagnosis: Postop day #1 left mastectomy Courtney is postop day #1 left mastectomy. Postoperatively she is doing well without complaints. Objective - Vital Signs Vital signs: Vital Signs Temp 98.1 F 05/16/22 07:58 Pulse 68 05/16/22 07:58 Resp 16 05/16/22 07:58 BP 136/74 05/16/22 07:58 Pulse Ox 98 05/16/22 08:15 FiO2 Intake & Output 05/15/22 05/16/22 05/16/22 18:59 06:59 18:59 Intake Total 800 570 Output Total 10 Balance 790 570 Weight 76.7 kg Intake: IV 800 Oral 570 Output: Estimated Blood Loss 10 Other: Voiding Method Toilet Toilet # Voids 1 - Constitutional General appearance: Present: cooperative - EENT Eyes: Present: EOMI ENT: Present: hearing grossly normal - Neck Neck: Present: normal ROM - Respiratory Respiratory: bilateral: CTA - Cardiovascular Heart sounds: normal: S1, S2 - Integumentary Integumentary Comment(s): Incision clean and dry, no evidence of any hematoma or infection KATARINA output 10 mL serous Assessment and Plan Assessment: Impression: Patient postop day #1 left mastectomy. She is doing well at this time Plan: Discharge home to be followed as an outpatient by Dr. Weiss
--- NOTE | 2022-05-16 08:54 | P.DS ---
Providers Attending physician: Ana María Doan Consults: 05/15/22 15:43 Consult Physician Routine Consulting Provider: Leslie Estrada Consult Reason/Comments: medical care Do you want consulting provider notified?: Yes Primary care physician: Leslie Estrada [facility] Course: This is postop day #1 left mastectomy. She has done well with no complaints postoperatively. Plan - Discharge Summary Discharge Rx Participant: No New Discharge Prescriptions: No Action Simvastatin [Zocor] 20 mg PO HS Multivitamins, Thera [Multivitamin (formulary)] 1 tab PO WINN Cyanocobalamin (Vitamin B-12) [Vitamin B-12] 1,000 mcg PO DAILY Metoprolol Tartrate [Lopressor] 25 mg PO BID Discharge Medication List Simvastatin [Zocor] 20 mg PO HS 07/01/19 [History] Cyanocobalamin (Vitamin B-12) [Vitamin B-12] 1,000 mcg PO DAILY 01/24/20 [History] Metoprolol Tartrate [Lopressor] 25 mg PO BID 01/24/20 [History] Multivitamins, Thera [Multivitamin (formulary)] 1 tab PO WINN 01/24/20 [History] Follow up Appointment(s)/Referral(s): Ana María Doan MD [STAFF PHYSICIAN] - 1 Week Activity/Diet/Wound Care/Special Instructions: do not drive teach drain care may shower after 48 hours wear breast support at all times unless in shower Discharge Disposition: HOME SELF-CARE
[2022-05-16] MEDS ORDERED: CYANOCOBALAMIN 500 MCG TAB PO SCH (09:00)
[2022-05-16 12:12] LABS: African American GFR (CKD) 86.6 (60.0-200.0); Albumin 3.9 g/dL (3.8-4.9); Albumin/Globulin Ratio 1.7 (1.60-3.17); Anion Gap 8.7 mmol/L (10.00-18.00); BUN/Creat Ratio 11.38 Ratio (12.00-20.00); Basophils # (A) 0.02 X 10*3/uL (0.00-0.10); Basophils % (A) 0.2 %; Blood Urea Nitrogen 9.1 mg/dL (9.0-27.0); Calcium 9.6 mg/dL (8.7-10.3); Carbon Dioxide 23.3 mmol/L (20.0-27.5); Eosinophils # (A) 0 X 10*3/uL (0.04-0.35); Eosinophils % (A) 0 %; Globulin 2.3 g/dL (1.6-3.3); HCT 39.6 % (37.2-46.3); HGB 12.9 g/dL (12.0-15.0); Immature Grans, Automated 0.4 %; Lymphocytes # (A) 1.27 X 10*3/uL (0.90-5.00); Lymphocytes % (A) 12.8 %; MCH 29.3 pg (27.0-32.0); MCHC 32.6 g/dL (32.0-37.0); MCV 89.8 fL (80.0-97.0); Mean Platelet Volume 10.7 fL (9.5-12.2); Monocytes # (A) 0.72 X 10*3/uL (0.20-1.00); Monocytes % (A) 7.3 %; NRBC Per 100 WBC 0 /100 WBCS (0.0-0.0); Neutrophils # (A) 7.85 X 10*3/uL (1.80-7.70); Neutrophils % (A) 79.3 %; Non-African American GFR(CKD) 74.7 (60.0-200.0); Platelet Count 280 X 10*3/uL (140-440); Potassium 4.3 mmol/L (3.5-5.5); RBC 4.41 X 10*6/uL (4.10-5.20); RDW 12.7 % (11.5-14.5); Total Bilirubin 0.8 mg/dL (0.30-1.20); Total Protein 6.2 g/dL (6.2-8.2)
--- NOTE | 2022-05-16 12:47 | P.CONS ---
History of Present Illness - Reason for Consult Consult date: 05/16/22 - History of Present Illness Courtney Castellano, is a 71-year-old female, who was admitted to [facility] by Dr. Alex Noonan due to abnormal mammogram in the abnormal breast biopsy, patient underwent left mastectomy on 05/15/2022, medical consultation was requested for management while hospitalized. Past medical history is significant for hyperlipidemia, migraine headache, previous history of diverticulitis with diverticular abscess requiring surgery was colostomy placement, history of hypertension. On review of systems patient is alert and oriented 3 in no chest pain no shortness of breath no cough no nausea or vomiting no abdominal pain no diarrhea and no urinary symptoms Past Medical History Past Medical History: Atrial Fibrillation, Cancer, Hyperlipidemia Additional Past Medical History / Comment(s): Do Not Use Left Arm for IV or BP- left breast CA with lumpectomy, radiation and chemo 2002. 09/11/19 Diverticulitis w/ perforation, colostomy; developed AFib w/ RVR, pulmonary edema post-op. History of Any Multi-Drug Resistant Organisms: None Reported Past Surgical History: Bowel Resection, Breast Surgery, Cholecystectomy, Tonsillectomy Additional Past Surgical History / Comment(s): L breast lumpectomy 2002. Gomez proc w/ Colostomy 09/11/19, REVERSAL OF COLOSTOMY, COLONOSCOPY Past Anesthesia/Blood Transfusion Reactions: Motion Sickness Additional Past Anesthesia/Blood Transfusion Reaction / Comm: Pt has never received blood. Past Alcohol Use History: Occasional - Past Family History Father Family Medical History: Myocardial Infarction ([place]) Additional Family Medical History / Comment(s): Father had a [place] in his 60's. He from a post op hip infection at age 73 yrs. no gallbladder disease Mother Family Medical History: Eye Disorder, Hypertension Additional Family Medical History / Comment(s): Mother had glaucoma. She at age 82 yrs. Medications and Allergies Home Medications Medication Instructions Recorded Confirmed Type Simvastatin [Zocor] 20 mg PO HS 07/01/19 05/15/22 History Cyanocobalamin (Vitamin B-12) 1,000 mcg PO DAILY 01/24/20 05/15/22 History [Vitamin B-12] Metoprolol Tartrate [Lopressor] 25 mg PO BID 01/24/20 05/15/22 History Multivitamins, Thera [Multivitamin 1 tab PO WINN 01/24/20 05/15/22 History (formulary)] Allergies Allergy/AdvReac Type Severity Reaction Status Date / Time bee venom protein (honey bee) Allergy Anaphylaxis Verified 05/15/22 13:32 Physical Exam Vitals: Vital Signs Temp Pulse Pulse Resp BP Pulse Ox 05/16/22 08:15 98 05/16/22 07:58 98.1 F 68 16 136/74 97 05/16/22 02:00 98.3 F 69 18 139/80 98 05/15/22 19:58 16 05/15/22 19:24 98.6 F 108 H 20 116/73 93 L 05/15/22 17:54 86 127/78 92 L 05/15/22 17:39 91 134/82 92 L 05/15/22 17:24 98.6 F 87 136/80 94 L 05/15/22 17:05 83 15 129/65 97 05/15/22 16:50 84 15 140/63 98 05/15/22 16:35 85 16 123/61 99 05/15/22 16:21 83 14 127/60 99 05/15/22 16:00 97 F L 91 14 133/62 99 Intake and Output 05/15/22 05/16/22 05/16/22 22:59 06:59 14:59 Intake Total 120 450 Balance 120 450 Intake: IV 0 Oral 120 450 Other: Voiding Method Toilet Toilet # Voids 1 In general patient is alert and oriented x 3 in no distress HEENT head normocephalic and atraumatic Neck is supple no JVD no goiter no lymphadenopathy no carotid bruit Chest examination is clear to auscultation no crackles no wheezing Cardiac exam reveals regular heart sounds S1 and S2 no gallops no murmurs Abdomen is soft nontender no organomegaly with normal bowel sounds Extremity exam reveals no edema no cyanosis or clubbing Neurological examination reveals no gross focal deficits Results CBC & Chem 7: 05/16/22 06:54 05/16/22 06:54 Labs: Abnormal Lab Results - Last 24 Hours (Table) 05/16/22 05/16/22 Range/Units 06:54 06:54 Neutrophils # 7.85 H (1.80-7.70) X 10*3/uL Eosinophils # 0 L (0.04-0.35) X 10*3/uL Anion Gap 8.70 L (10.00-18.00) mmol/L BUN/Creatinine Ratio 11.38 L (12.00-20.00) Ratio AST 83 H (13-35) U/L ALT 88 H (8-44) U/L Assessment and Plan Plan: Breast cancer status post left mastectomy on 05/15/2022 Underlying history of hypertension Underlying history of hyperlipidemia Elevated liver enzymes on blood tests today Will continue to monitor as outp atient, if elevated will proceed with testing as outpatient. Underlying history of migraine headache Previous history of diverticular abscess requiring surgery was colostomy placement and reversal At this time patient was seen and examined Home medications reviewed and reordered Will follow closely
[2022-05-18] MEDS ORDERED: MULTIVITAMINS, THERA 1 EACH TAB PO SCH (09:00)
== END 2022-05-16 13:01 | disposition home or self-care (01) ==
LOC: OR 11:56 → 5NMEDONC 17:06 → OR 05-16 13:01
PROVIDERS: ATTEND Surgery
DX: C50.412 Malignant neoplasm of upper-outer quadrant of left female breast (principal); I10 Essential (primary) hypertension; E78.5 Hyperlipidemia, unspecified; Z85.3 Personal history of malignant neoplasm of breast; Z79.899 Other long term (current) drug therapy
CPT/HCPCS: 19301; 94760; 80053; 85025; 38792; 38525; 38900; A9520; J2250; J0330; J1100; J0690; J2405; J3010; J1170; J2704; J1644 ×2; J2001; 88307; 88341; 88342

== ENCOUNTER → 2022-05-21 | Outpatient (CLI) | payer MEDICARE, OTHER ==
[2022-05-21 12:07] VITALS: BP 156/85; PULSE 69; RESP 18; TEMP 98.4
--- NOTE | 2022-05-21 12:41 | P.PN ---
Progress Note - Text Progress Note Date: 05/21/22 Courtney is a 71 -year-old white female [place] [id number]. Postoperatively she noted that the drain was not functioning. She is here for evaluation of the drain. On examination there is some seroma accumulated under the flap with some serous drainage at the drain site. There does appear to be a clot in the drain. Using stripping of the drain as well as a 10 mL syringe the drain was able to be freed and fluid was obtained. Approximately 85 mL of straw-colored dark fluid was removed. Incision: Clean and dry Resolution of seroma Patient will follow-up in 2 days to follow up sooner any questions or concerns
== END ==
LOC: WWCWWP 11:57
PROVIDERS: ATTEND Surgery
DX: Z85.3 Personal history of malignant neoplasm of breast (principal); Z91.030 Bee allergy status; Z87.891 Personal history of nicotine dependence

== ENCOUNTER → 2022-05-23 | Outpatient (CLI) | payer MEDICARE, OTHER ==
[2022-05-23 14:36] VITALS: BP 156/91; PULSE 77; RESP 17; TEMP 98.9
--- NOTE | 2022-05-23 14:42 | P.PN ---
Progress Note - Text Progress Note Date: 05/23/22 Courtney is a 71-year-old white female status post left mastectomy on . 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 All margins were negative. She is doing well at this time. Physical examination: Lungs: Clear Heart: Regular rate and rhythm Incision: Clean and dry no evidence of seroma at this time KATARINA approximately of 40 mL per day we will keep that in place at the present time Plan: Follow up next week for probable KATARINA drain removal. Appointment medical oncology CC: Dr. Estrada
== END ==
LOC: WWCWWP 14:29
PROVIDERS: ATTEND Surgery
DX: Z85.3 Personal history of malignant neoplasm of breast (principal); Z91.030 Bee allergy status; Z87.891 Personal history of nicotine dependence

== ENCOUNTER → 2022-05-27 | Outpatient (CLI) | payer MEDICARE, OTHER ==
--- NOTE | 2022-05-27 11:53 | P.PN ---
Progress Note - Text Progress Note Date: 05/27/22 Courtney is a 71-year-old white female status post left mastectomy on . 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 All margins were negative. She is doing well at this time. KATARINA output 20 cc/day. Physical examination: Incision: Clean and dry no evidence of seroma at this time KATARINA approximately of 20 mL per day Plan: remove KATARINA drain Appointment medical oncology follow up 4 months CC: Dr. Estrada
[2022-05-27 11:59] VITALS: BP 159/80; PULSE 69; RESP 18
== END ==
LOC: WWCWWP 11:38
PROVIDERS: ATTEND Surgery
DX: Z01.419 Encounter for gynecological examination (general) (routine) without abnormal findings (principal); Z91.030 Bee allergy status; Z87.891 Personal history of nicotine dependence

== ENCOUNTER → 2022-07-21 | Outpatient (CLI) | payer MEDICARE, OTHER ==
--- NOTE | 2022-07-21 10:29 | BD ---
EXAMINATION TYPE: Axial Bone Density DATE OF EXAM: 07/21/2022 CLINICAL HISTORY: 71 years old Female. ICD-10 CODE: C50.412 Breast cancer Height: 5 ft 6 in Weight: 165 FRAX RISK QUESTIONS: Alcohol (3 or more units per day): no Family History (Parent hip fracture): no Glucocorticoids (More than 3mos): no (Ex: prednisone, prednisolone, methylprednisolone, dexamethasone, and hydrocortisone). History of Fracture in Adulthood: no Secondary Osteoporosis: 1. Type 1 Diabetes: no 2. Hyperthyroidism: no 3. Menopause before 45: no 4. Malnutrition: no 5. Chronic liver disease: no Rheumatoid Arthritis: no Current Tobacco Use: no RISK FACTORS HISTORY OF: Surgery to Spine/Hip(right/left)/Wrist (right/left): no Family History of Osteoporosis: no Active: yes Diet low in dairy products/other sources of calcium: no Postmenopausal woman: yes Take estrogen and/or progesterone medications: no Lost more than 2 inches in height since high school: no Frequent falls: no Poor Health: good Hyperparathyroidism: no Adrenal Insufficiency: no MEDICATIONS: Additional Medications: hormone elissa, metoprolol, simvastatin Additional History: breast cancer 2021 mastectomy EXAM MEASUREMENTS: Bone mineral densitometry was performed using the Dopios System. Bone mineral density as measured about the Lumbar spine is: ----- L1-L4(G/cm2): 1.348 T Score Values are as follows: ----- L1: 0.8 ----- L2: 0.9 ----- L3: 1.1 ----- L4: 1.7 ----- L1-L4: 1.2 Z Score Values are as follows: ----- L1: 2.1 ----- L2: 2.2 ----- L3: 2.5 ----- L4: 3.1 ----- L1-L4: 2.6 Bone mineral density has decresed -2.4 % since study 2020 Bone mineral density about the R hip (g/cm2): 0.866 Bone mineral density about the L hip (g/cm2): 0.829 T Score values are as follows: -----R Neck: -1.2 -----L Neck: -1.5 -----R Total: -0.7 -----L Total: -0.7 Z Score values are as follows: -----R Neck: 0.3 -----L Neck: 0.0 -----R Total: 0.6 -----L Total: 0.5 Bone mineral density has: decreased -1.1 since study of 2020 Bone mineral density has: % since study of: FRAX%s: The graph provided illustrates a 10.3 %chance for a major osteoporotic fx and a 1.6 % chance for hip fx probability in a 10 years time . IMPRESSION: Osteopenia (T Score between -2.5 and -1). There is slightly increased risk of fracture and the patient may be considered for treatment. Re-Screen 2-5 years. NOTE: T-SCORE=SD OF THE YOUNG ADULT MEAN.
== END | disposition home or self-care (01) ==
LOC: RADBDWWP 07:57
PROVIDERS: ATTEND Internal Medicine Hematology & Oncology
DX: C50.412 Malignant neoplasm of upper-outer quadrant of left female breast (principal); M85.89 Other specified disorders of bone density and structure, multiple sites; Z71.3 Dietary counseling and surveillance
CPT/HCPCS: 77080

== ENCOUNTER → 2022-09-25 | Outpatient (CLI) | payer MEDICARE, OTHER ==
[2022-09-25 08:59] VITALS: BP 163/81; PULSE 55; RESP 17; TEMP 97.8
--- NOTE | 2022-09-25 09:23 | P.PN ---
Subjective Progress Note Date: 09/25/22 left breast invasive ductal cancer Courtney is a 71 year old white female seen in consultation for DR. Petit regarding a recurrent left breast cancer. Left breast cancer in 2002. This was a T2 N1 M0 ER AL negative HER-2 positive. She was treated with A C 4 and radiation therapy to the left breast. She underwent a screening mammogram on . This revealed some concern with calcifications in the left breast. On [id number] left breast diagnostic mammogram was performed which confirmed the ca lcifications of concern in the left breast. Stereotactic core biopsy was then performed on [id number]. Pathology from this revealed multifocal microinvasive moderately differentiated ductal carcinoma arising in the background of high- grade DCIS. She underwent an ultrasound of the left axilla at [place] on [id number] which was negative. The patient does not feel any new lumps masses or nodules of concern in either breast. She gets mammograms routinely in this was a new finding since last year. She is not complaining of any recent trauma or infection of the breast. She is complaining of any nipple discharge or skin changes. She underwent a left mastectomy on . 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 All margins were negative. The tumor was T2 N1 with micromets to lymph node M0 ER/AL + HER-2 negative. The patient was seen in consultation by Dr. Hutson on . At that time it was recommended that an Oncotype be performed. He also discussed with her radiation therapy which was not recommended. In additionally he discuss genetic testing which was done. She is on Arimidex, she is tolerating this without difficulty. She was not recommended to have chemotherapy. Caffeine: 2 cups coffee/ several times a week nicotine: none; stopped 35 years ago; used to smoke 1/2 PPD chocolate: daily BCP: none hormones: none Family History: maternal aunt: breast cancer Hormonal History: meanrche: 14 , age at : 37; breast fed: no menopause: 51 Surgical History: Cholecystectomy Colon resection; perforated diverticulitis Left breast lumpectomy and sentinel node possibly axillary node dissection Colostomy reversal Right breast biopsy in the operating room several times Medical History: glaucoma AFIB off blood thinners high cholesterol Social History: nicotine: as above alcohol: with dinner; several times a week drugs: none - Constitutional Constitutional: Denies chills, Denies fever - EENT Eyes: bilateral as per HPI Ears: bilateral: tinnitus, deny: decreased hearing Ears, nose, mouth and throat: Denies headache, Denies sore throat - Breasts Breasts: bilateral: as per HPI - Cardiovascular Cardiovascular: Reports as per HPI - Respiratory Respiratory: Denies cough - Gastrointestinal Gastrointestinal: Reports as per HPI, Reports constipation, Reports diarrhea - Genitourinary (Female) Genitourinary: Denies dysuria, Denies hematuria - Menstruation Menstruation: Reports postmenopausal - Musculoskeletal Comment: heel spur Musculoskeletal: Reports myalgias - Integumentary Integumentary: Denies pruritus, Denies rash - Neurological Neurological: Denies numbness, Denies weakness - Psychiatric Psychiatric: Denies anxiety, Denies depression - Endocrine Endocrine: Denies fatigue, Denies weight change - Hematologic/Lymphatic Comment: none - Allergic/Immunologic Allergic/Immunologic: Reports as per HPI Past Medical History Past Medical History: Atrial Fibrillation, Cancer, Hyperlipidemia Additional Past Medical History / Comment(s): Do Not Use Left Arm for IV or BP- left breast CA with lumpectomy, radiation and chemo 2002. 09/11/19 Diverticulitis w/ perforation, colostomy; developed AFib w/ RVR, pulmonary edema post-op. History of Any Multi-Drug Resistant Organisms: None Reported Past Surgical History: Bowel Resection, Breast Surgery, Cholecystectomy, Tonsillectomy Additional Past Surgical History / Comment(s): L breast lumpectomy 2002. Gomez proc w/ Colostomy 09/11/19, REVERSAL OF COLOSTOMY, COLONOSCOPY Past Anesthesia/Blood Transfusion Reactions: Motion Sickness Additional Past Anesthesia/Blood Transfusion Reaction / Comment(s): Pt has never received blood. Past Psychological History: No Psychological Hx Reported Additional Psychological History / Comment(s): Pt resides with her spouse of 33 yrs. She is independent. She uses no assistive device. She drives. Smoking Status: Former smoker Past Alcohol Use History: Occasional Additional Past Alcohol Use History / Comment(s): Pt states she started smoking in 1969 and quit in 1990. Pt has 1-2 glasses of wine/beer almost daily. Past Drug Use History: None Reported - Past Family History Father Family Medical History: Myocardial Infarction ([place]) Additional Family Medical History / Comment(s): Father had a [place] in his 60's. He from a post op hip infection at age 73 yrs. no gallbladder disease Mother Family Medical History: Eye Disorder, Hypertension Additional Family Medical History / Comment(s): Mother had glaucoma. She at age 82 yrs. Medications and Allergies Home Medications Medication Instructions Recorded Confirmed Type Simvastatin [Zocor] 20 mg PO HS 07/01/19 03/26/22 History Cyanocobalamin (Vitamin B-12) 1,000 mcg PO DAILY 01/24/20 03/26/22 History [Vitamin B-12] Metoprolol Tartrate [Lopressor] 25 mg PO BID 01/24/20 03/26/22 History Multivitamins, Thera [Multivitamin 1 tab PO WINN 01/24/20 03/26/22 History (formulary)] Allergies Allergy/AdvReac Type Severity Reaction Status Date / Time bee venom protein (honey bee) Allergy Anaphylaxis Verified 03/26/22 08:45 Objective - Vital Signs Vital signs: Vital Signs Temp 97.8 F 09/25/22 08:57 Pulse 55 L 09/25/22 08:57 Resp 17 09/25/22 08:57 BP 163/81 09/25/22 08:57 Pulse Ox 99 09/25/22 08:57 FiO2 Intake & Output 09/24/22 09/25/22 09/25/22 18:59 06:59 18:59 Weight 77.111 kg - Constitutional General appearance: Present: cooperative - EENT Eyes: Present: EOMI ENT: Present: hearing grossly normal - Neck Neck: Present: normal ROM - Respiratory Respiratory: bilateral: CTA - Cardiovascular Rhythm: regular Heart sounds: normal: S1, S2 - Gastrointestinal General gastrointestinal: Present: soft - Integumentary Integumentary: Present: normal turgor - Musculoskeletal Musculoskeletal: Present: gait normal - Psychiatric Psychiatric: Present: A&O x's 3, appropriate affect, intact judgment & insight - Additional findings Additional findings: Breast Exam: Bra: 38C Inspection: Right breast grade 2/3 ptosis, left chest wall no evidence of recurrence Palpation: Right breast: Multi-positional exam no dominant masses or nodules of concern right Axilla: No adenopathy of concern Left chest wall: No evidence of recurrent disease Left axilla: No adenopathy of concern Fungal infection under her right breast Assessment and Plan Assessment: Impression: Patient status post left mastectomy for a new left breast invasive ductal c arcinoma Patient presently on a limited ask Fungal infection under right breast Plan: Continue over mid axis Nystatin under right breast Follow-up. 4 months Cc: Dr. Estrada
== END ==
LOC: WWCWWP 08:34
PROVIDERS: ATTEND Surgery
DX: C50.912 Malignant neoplasm of unspecified site of left female breast (principal); E78.00 Pure hypercholesterolemia, unspecified; I48.91 Unspecified atrial fibrillation; Z17.0 Estrogen receptor positive status [ER+]; Z79.811 Long term (current) use of aromatase inhibitors; Z80.3 Family history of malignant neoplasm of breast; Z82.49 Family history of ischemic heart disease and other diseases of the circulatory system; Z87.891 Personal history of nicotine dependence; Z90.12 Acquired absence of left breast and nipple; Z90.49 Acquired absence of other specified parts of digestive tract; Z91.030 Bee allergy status; B37.89 Other sites of candidiasis; Z98.890 Other specified postprocedural states

== ENCOUNTER → 2023-01-15 | Outpatient (CLI) | payer MEDICARE, OTHER ==
--- NOTE | 2023-01-15 08:59 | P.PN ---
Subjective Progress Note Date: 01/15/23 Principal diagnosis: left breast invasive ductal cancer left breast invasive ductal cancer; second primary first in 2002 Courtney is a 71 year old white female seen in consultation for DR. Petit regarding a recurrent left breast cancer. Left breast cancer in 2002. This was a T2 N1 M0 ER [place] negative HER-2 positive. She was treated with A C 4 and radiation therapy to the left breast. She underwent a screening mammogram on . This revealed some concern with calcifications in the left breast. On [id number] left breast diagnostic mammogram was performed which confirmed the calcifications of concern in the left breast. Stereotactic core biopsy was then performed on [id number]. Pathology from this revealed multifocal microinvasive moderately differentiated ductal carcinoma arising in the background of high- grade DCIS. She underwent an ultrasound of the left axilla at [place] on [id number] which was negative. The patient does not feel any new lumps masses or nodules of concern in either breast. She gets mammograms routinely in this was a new finding since last year. She is not complaining of any recent trauma or infection of the breast. She is complaining of any nipple discharge or skin changes. She underwent a left mastectomy on . 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 All margins were negative. The tumor was T2 N1 with micromets to lymph node M0 ER/UT + HER-2 negative. The patient was seen in consultation by Dr. Hutson on . At that time it was recommended that an Oncotype be performed. He also discussed with her radiation therapy which was not recommended. In additionally he discuss genetic testing which was done. She is on Arimidex, she is tolerating this without difficulty. She was not recommended to have chemotherapy. She is not complaining of any new lumps masses or nodules of concern in the right breast. No changes on the left chest wall. She is due for a right breast mammogram. She continues on the arimidex. This complaining of some neuropathy in her feet after starting the Arimidex. Caffeine: 2 cups coffee/ several times a week nicotine: none; stopped 35 years ago; used to smoke 1/2 PPD chocolate: daily BCP: none hormones: none Family History: maternal aunt: breast cancer Hormonal History: meanrche: 14 , age at : 37; breast fed: no menopause: 51 Surgical History: Cholecystectomy Colon resection; perforated diverticulitis Left breast lumpectomy and sentinel node possibly axillary node dissection Colostomy reversal Right breast biopsy in the operating room several times Medical History: glaucoma AFIB off blood thinners high cholesterol Social History: nicotine: as above alcohol: with dinner; several times a week drugs: none - Constitutional Constitutional: Denies chills, Denies fever - EENT Eyes: bilateral as per HPI Ears: bilateral: tinnitus, deny: decreased hearing Ears, nose, mouth and throat: Denies headache, Denies sore throat - Breasts Breasts: bilateral: as per HPI - Cardiovascular Cardiovascular: Reports as per HPI - Respiratory Respiratory: Denies cough - Gastrointestinal Gastrointestinal: Reports as per HPI, Reports constipation, Reports diarrhea - Genitourinary (Female) Genitourinary: Denies dysuria, Denies hematuria - Menstruation Menstruation: Reports postmenopausal - Musculoskeletal Comment: heel spur Musculoskeletal: Reports myalgias - Integumentary Integumentary: Denies pruritus, Denies rash - Neurological Neurological: Denies numbness, Denies weakness - Psychiatric Psychiatric: Denies anxiety, Denies depression - Endocrine Endocrine: Denies fatigue, Denies weight change - Hematologic/Lymphatic Comment: none - Allergic/Immunologic Allergic/Immunologic: Reports as per HPI Past Medical History Past Medical History: Atrial Fibrillation, Cancer, Hyperlipidemia Additional Past Medical History / Comment(s): Do Not Use Left Arm for IV or BP- left breast CA with lumpectomy, radiation and chemo 2002. 09/11/19 Diverticulitis w/ perforation, colostomy; developed AFib w/ RVR, pulmonary edema post-op. History of Any Multi-Drug Resistant Organisms: None Reported Past Surgical History: Bowel Resection, Breast Surgery, Cholecystectomy, Tonsillectomy Additional Past Surgical History / Comment(s): L breast lumpectomy 2002. Gomez proc w/ Colostomy 09/11/19, REVERSAL OF COLOSTOMY, COLONOSCOPY Past Anesthesia/Blood Transfusion Reactions: Motion Sickness Additional Past Anesthesia/Blood Transfusion Reaction / Comment(s): Pt has never received blood. Past Psychological History: No Psychological Hx Reported Additional Psychological History / Comment(s): Pt resides with her spouse of 33 yrs. She is independent. She uses no assistive device. She drives. Smoking Status: Former smoker Past Alcohol Use History: Occasional Additional Past Alcohol Use History / Comment(s): Pt states she started smoking in 1969 and quit in 1990. Pt has 1-2 glasses of wine/beer almost daily. Past Drug Use History: None Reported - Past Family History Father Family Medical History: Myocardial Infarction ([place]) Additional Family Medical History / Comment(s): Father had a [place] in his 60's. He from a post op hip infection at age 73 yrs. no gallbladder disease Mother Family Medical History: Eye Disorder, Hypertension Additional Family Medical History / Comment(s): Mother had glaucoma. She at age 82 yrs. Medications and Allergies Home Medications Medication Instructions Recorded Confirmed Type Simvastatin [Zocor] 20 mg PO HS 07/01/19 03/26/22 History Cyanocobalamin (Vitamin B-12) 1,000 mcg PO DAILY 01/24/20 03/26/22 History [Vitamin B-12] Metoprolol Tartrate [Lopressor] 25 mg PO BID 01/24/20 03/26/22 History Multivitamins, Thera [Multivitamin 1 tab PO WINN 01/24/20 03/26/22 History (formulary)] Allergies Allergy/AdvReac Type Severity Reaction Status Date / Time bee venom protein (honey bee) Allergy Anaphylaxis Verified 03/26/22 08:45 Objective - Constitutional General appearance: Present: cooperative - EENT Eyes: Present: EOMI ENT: Present: hearing grossly normal - Neck Neck: Present: normal ROM - Respiratory Respiratory: bilateral: CTA - Cardiovascular Heart sounds: normal: S1, S2 - Integumentary Integumentary: Present: normal turgor - Musculoskeletal Musculoskeletal: Present: gait normal - Psychiatric Psychiatric: Present: A&O x's 3, appropriate affect, intact judgment & insight - Additional findings Additional findings: Breast Exam: Bra: 38C Inspection: Right breast grade 2/3 ptosis, left chest wall no evidence of recurrence Palpation: Right breast: Multi-positional exam no dominant masses or nodules of concern right Axilla: No adenopathy of concern Left chest wall: No evidence of recurrent disease Left axilla: No adenopathy of concern Fungal infection under the right breast Assessment and Plan Assessment: Impression: Patient status post left mastectomy for a new left breast invasive ductal carcinoma Patient presently on arimidex Fungal infection under right breast Plan: right breast mammogram and follow up after this is done Continue arimidex Nystatin under right breast Follow-up. 4 months Cc: Dr. Estrada
[2023-01-15 15:58] VITALS: BP 126/76; PULSE 53; RESP 18; TEMP 97.9
== END ==
LOC: WWCWWP 08:28
PROVIDERS: ATTEND Surgery
DX: C50.912 Malignant neoplasm of unspecified site of left female breast (principal); E78.00 Pure hypercholesterolemia, unspecified; I48.91 Unspecified atrial fibrillation; Z17.0 Estrogen receptor positive status [ER+]; Z80.3 Family history of malignant neoplasm of breast; Z87.891 Personal history of nicotine dependence; Z85.3 Personal history of malignant neoplasm of breast; Z90.12 Acquired absence of left breast and nipple; Z90.49 Acquired absence of other specified parts of digestive tract; Z91.030 Bee allergy status

== ENCOUNTER → 2023-02-20 | Outpatient (CLI) | payer MEDICARE, OTHER ==
--- NOTE | 2023-02-20 13:55 | MM ---
Reason for Exam: Follow-up at short interval from prior study. Last screening mammogram was performed 12 month(s) ago. Patient History: Menarche at age 14. First Full-Term at age 36. Late child-bearing (after 30). Postmenopausal. Breast cancer, left, age 52. Breast cancer, left, age 71. 05/15/2022, Mastectomy on the Left side. 02/27/2022, Malignant MG stereo VAD BX LT on the left side. Lumpectomy on the Left side. Core Biopsy on the Left side. Excisional Biopsy on the Right side. Excisional Biopsy on the Right side. Excisional Biopsy on the Right side. Excisional Biopsy on the Right side. 08/18/2003, Benign Ultrasound-Guided Core Biopsy on the right side. 08/05/2002, Malignant Stereotactic Core Biopsy on the left side. Radiation Therapy, left. Chemotherapy. Maternal aunt had breast cancer. Prior Study Comparison: 02/05/2021 Bilateral Screening Mammogram, [facility]. 02/06/2022 Bilateral MG 3D screening mammo w/cad, [facility]. 02/17/2022 Left MG 3D work up w/cad LT, [facility]. Tissue Density: Right: The breast tissue is heterogeneously dense. This may lower the sensitivity of mammography. Findings: Analyzed By CAD. Stable benign calcifications right breast. No evidence of mass or distortion. Overall Assessment: Benign, BI-RAD 2 Management: Diagnostic Mammogram of the right breast in 1 year. Results were given to the patient verbally at the time of exam. Patient should continue monthly self-breast exams. A clinical breast exam by your physician is recommended on an annual basis. This exam should not preclude additional follow-up of suspicious palpable abnormalities. Note on Britney scores and lifetime risk: 1. A Britney score greater than 3% is considered moderate risk. If this is the case, consider specialist referral to assess eligibility for a risk reducing agent. 2. If overall lifetime risk for the development of breast cancer is 20% or higher, the patient may qualify for future screening with alternating mammogram and breast MRI. Electronically signed and approved by: Adams Perrin M.D. Radiologis
== END | disposition home or self-care (01) ==
LOC: RADMAMWWP 10:42
PROVIDERS: ATTEND Surgery
DX: R92.331 Mammographic heterogeneous density, right breast (principal); Z85.3 Personal history of malignant neoplasm of breast; Z78.0 Asymptomatic menopausal state; Z80.3 Family history of malignant neoplasm of breast
CPT/HCPCS: 77065; G0279; 77061

== ENCOUNTER 2023-06-15 00:54 | Emergency (ER) | payer MEDICARE, OTHER ==
[2023-06-15 01:07] VITALS: RESP 18
--- NOTE | 2023-06-15 01:44 | ED ---
Abdominal Pain HPI - General Chief Complaint: Abdominal Pain Stated Complaint: Abdominal Pain, nausea, Headache Time Seen by Provider: 06/15/23 00:59 Source: patient Mode of arrival: ambulatory Limitations: no limitations - History of Present Illness Initial Comments: This patient is a 72-year-old woman who presents with complaint that she is having left lower quadrant abdominal pain. She first noticed it a couple of days ago and it has slowly become more severe. She states that it does remind her of previous episode of diverticulitis. She has not noted any systemic symptoms, no fever or chills. Has been associated nausea. She has not noted c hange in bowel movements stating that it is normal for her to have alternating soft and hard stools. She has not had change in urination. MD Complaint: abdominal pain -: days(s) Location: LLQ Migration to: no migration Severity: moderate Quality: aching Consistency: constant Improves With: nothing Worsens With: nothing Associated Symptoms: nausea - Related Data Home Medications Medication Instructions Recorded Confirmed Simvastatin [Zocor] 20 mg PO HS 07/01/19 01/15/23 Cyanocobalamin (Vitamin B-12) 1,000 mcg PO DAILY 01/24/20 01/15/23 [Vitamin B-12] Metoprolol Tartrate [Lopressor] 25 mg PO BID 01/24/20 01/15/23 Multivitamins, Thera [Multivitamin 1 tab PO WINN 01/24/20 01/15/23 (formulary)] Previous Rx's Medication Instructions Recorded Nystatin/Triamcin 1 applic TOPICAL BID #30 gram 09/25/22 [Nystatin-Triamcinolone Cream] Nystatin/Triamcin 1 applic TOPICAL BID #30 gram 01/15/23 [Nystatin-Triamcinolone Cream] Sulfamethox-Tmp 800-160Mg [Bactrim 1 each PO Q12HR #6 tab 06/15/23 Ds] predniSONE [Deltasone] 20 mg PO BID #8 tab 06/15/23 Dicyclomine [Bentyl] 20 mg PO QID PRN #10 tablet 06/18/23 Allergies Allergy/AdvReac Type Severity Reaction Status Date / Time bee venom protein (honey bee) Allergy Anaphylaxis Verified 06/18/23 00:58 Review of Systems ROS Statement: Those systems with pertinent positive or pertinent negative responses have been documented in the HPI. ROS Other: All systems not noted in ROS Statement are negative. Constitutional: Denies: fever, chills, weakness Respiratory: Denies: cough, dyspnea Cardiovascular: Denies: chest pain, palpitations, edema Gastrointestinal: Reports: abdominal pain, nausea. Denies: vomiting, diarrhea, constipation, melena, hematochezia Genitourinary: Denies: dysuria, frequency, hematuria Musculoskeletal: Denies: back pain Skin: Denies: rash Neurological: Denies: headache, weakness Past Medical History Past Medical History: Atrial Fibrillation, Cancer, Hyperlipidemia Additional Past Medical History / Comment(s): Do Not Use Left Arm for IV or BP- left breast CA with lumpectomy, radiation and chemo 2002. 09/11/19 Diverticulitis w/ perforation, colostomy; developed AFib w/ RVR, pulmonary edema post-op. Diverticulitis History of Any Multi-Drug Resistant Organisms: None Reported Past Surgical History: Bowel Resection, Breast Surgery, Cholecystectomy, Tonsill ectomy Additional Past Surgical History / Comment(s): L breast lumpectomy 2002. Gomez proc w/ Colostomy 09/11/19 Past Anesthesia/Blood Transfusion Reactions: Motion Sickness Additional Past Anesthesia/Blood Transfusion Reaction / Comment(s): Pt has never recieved blood. Past Psychological History: No Psychological Hx Reported Smoking Status: Former smoker Past Alcohol Use History: Occasional Past Drug Use History: None Reported - Past Family History Father Family Medical History: Myocardial Infarction ([place]) Additional Family Medical History / Comment(s): Father had a IL in his 60's. He from a post op hip infection at age 73 yrs. no gallbladder disease Mother Family Medical History: Eye Disorder, Hypertension Additional Family Medical History / Comment(s): Mother had glaucoma. She at age 82 yrs. General Exam Limitations: no limitations General appearance: alert, in no apparent distress Head exam: Present: atraumatic, normocephalic Eye exam: Present: normal appearance. Absent: scleral icterus, conjunctival injection Neck exam: Present: normal inspection Respiratory exam: Present: normal lung sounds bilaterally. Absent: respiratory distress, wheezes, rales, rhonchi, stridor Cardiovascular Exam: Present: regular rate, normal rhythm, normal heart sounds. Absent: systolic murmur, diastolic murmur, rubs, gallop GI/Abdominal exam: Present: soft, tenderness. Absent: distended, guarding, rebound, rigid, mass Extremities exam: Present: normal inspection, normal capillary refill. Absent: pedal edema, calf tenderness Back exam: Present: normal inspection. Absent: CVA tenderness (R), CVA ten derness (L) Neurological exam: Present: alert Skin exam: Present: warm, dry, intact, normal color. Absent: rash Course Vital Signs 06/15/23 06/15/23 06/15/23 00:55 02:00 03:00 Temperature 98.2 F Pulse Rate 76 64 65 Respiratory 18 18 18 Rate Blood Pressure 196/99 148/76 145/81 O2 Sat by Pulse 99 95 95 Oximetry 06/15/23 04:25 Temperature 98.9 F Pulse Rate 77 Respiratory 18 Rate Blood Pressure 148/89 O2 Sat by Pulse 97 Oximetry Medical Decision Making - Medical Decision Making Patient is 72-year-old woman presenting with abdominal pain and having some tenderness on the exam. The patient did have CT scan of the abdomen showing some evidence of colitis. She is feeling better with initial treatment here and will continue as outpatient. We discussed appropriate further care and follow- up as well as return parameters. Was pt. sent in by a medical professional or institution (, PA, [employer], urgent care, hospital, or group home...) When possible be specific @ -[No] Did you speak to anyone other than the patient for history (EMS, parent, family, police, friend...)? What history was obtained from this source @ -[No] Did you review nursing and triage notes (agree or disagree)? Why? @ -[I reviewed and agree with nursing and triage notes] Were old charts reviewed (outside hosp., previous admission, EMS record, old EKG, old radiological studies, urgent care reports/EKG's, group home records)? Report findings @ -[No old charts were reviewed] Differential Diagnosis (chest pain, altered mental status, abdominal pain women, abdominal pain men, vaginal bleeding, weakness, fever, dyspnea, syncope, headache, dizziness, GI bleed, back pain, seizure, CVA, palpatations, mental health, musculoskeletal)? @ -[Differential Abdominal Pain Women: Appendicitis, Cholecystitis, diverticulosis, ischemic bowel, pancreatitis, hepatitis, UTI, gastroenteritis, AAA, incarcerated hernia, bowel obstruction, constipation, inflammatory bowel, hepatitis, peptic ulcer disease, splenic infarction, perforated viscus, vulvitis, ovarian torsion, PID, kidney stone, placenta abruption, this is not meant to be an all-inclusive list EKG interpreted by me (3pts min.). @ -[As above] X-rays interpreted by me (1pt min.). @ -[None done] CT interpreted by me (1pt min.). @ -[None done] U/S interpreted by me (1pt. min.). @ -[None done] What testing was considered but not performed or refused? (CT, X-rays, U/S, labs)? Why? @ -[None] What meds were considered but not given or refused? Why? @ -[None] Did you discuss the management of the patient with other professionals (professionals i.e. , PA, [employer], lab, RT, psych nurse, psychosocial rehabilitation counselor, banquet kitchen supervisor, teacher, medical corps officer, nurse outreach case manager)? Give summary @ -[No] Was smoking cessation discussed for >3mins.? @ -[No] Was critical care preformed (if so, how long)? @ -[No] Were there social determinants of health that impacted care today? How? (Asif elessness, low income, unemployed, alcoholism, drug addiction, transportation, low edu. Level, literacy, decrease access to med. care, longterm, rehab)? @ -[No] Was there de-escalation of care discussed even if they declined (Discuss DNR or withdrawal of care, Hospice)? DNR status @ -[No] What co-morbidities impacted this encounter? (DM, HTN, Smoking, COPD, CAD, Cancer, CVA, ARF, Chemo, Hep., AIDS, mental health diagnosis, sleep apnea, morbid obesity)? @ -[None] Was patient admitted / discharged? Hospital course, mention meds given and route, prescriptions, significant lab abnormalities, going to OR and other pertinent info. @ -[See above Undiagnosed new problem with uncertain prognosis? @ -[No] Drug Therapy requiring intensive monitoring for toxicity (Heparin, Nitro, Insulin, Cardizem)? @ -[No] Were any procedures done? @ -[No] Diagnosis/symptom? @ -[Acute abdominal pain Acute colitis Acute urinary tract infection Acute, or Chronic, or Acute on Chronic? @ -[Acute Uncomplicated (without systemic symptoms) or Complicated (systemic symptoms)? @ -[Uncomplicated Side effects of treatment? @ -[No] Exacerbation, Progression, or Severe Exacerbation? @ -[No] Poses a threat to life or bodily function? How? (Chest pain, USA, [place], pneumonia, PE, COPD, DKA, ARF, appy, cholecystitis, CVA, Diverticulitis, Homicidal, Suicidal, threat to staff... and all critical care pts) @ -[No] - Lab Data Result diagrams: 06/15/23 02:15 06/15/23 02:15 Lab Results 06/15/23 06/15/23 06/15/23 Range/Units 02:15 02:15 02:15 WBC 8.0 (3.8-10.6) k/uL RBC 4.95 (3.80-5.40) m/uL Hgb 14.6 (11.4-16.0) gm/dL Hct 43.4 (34.0-46.0) % MCV 87.8 (80.0-100.0) fL MCH 29.4 (25.0-35.0) pg MCHC 33.5 (31.0-37.0) g/dL RDW 13.0 (11.5-15.5) % Plt Count 308 (150-450) k/uL MPV 8.0 Neutrophils % 58 % Lymphocytes % 30 % Monocytes % 6 % Eosinophils % 3 % Basophils % 1 % Neutrophils # 4.6 (1.3-7.7) k/uL Lymphocytes # 2.4 (1.0-4.8) k/uL Monocytes # 0.5 (0-1.0) k/uL Eosinophils # 0.2 (0-0.7) k/uL Basophils # 0.1 (0-0.2) k/uL Sodium 138 (137-145) mmol/L Potassium 4.0 (3.5-5.1) mmol/L Chloride 108 H (98-107) mmol/L Carbon Dioxide 23 (22-30) mmol/L Anion Gap 7 mmol/L BUN 11 (7-17) mg/dL Creatinine 0.77 (0.52-1.04) mg/dL Est GFR (CKD-EPI)AfAm 90 (>60 ml/min/1.73 sqM) Est GFR (CKD-EPI)NonAf 78 (>60 ml/min/1.73 sqM) Glucose 102 H (74-99) mg/dL Plasma Lactic Acid Bereket (0.7-2.0) mmol/L Calcium 10.6 H (8.4-10.2) mg/dL Total Bilirubin 0.9 (0.2-1.3) mg/dL AST 30 (14-36) U/L ALT 23 (4-34) U/L Alkaline Phosphatase 74 (38-126) U/L C-Reactive Protein 0.6 (<1.0) mg/dL Total Protein 7.2 (6.3-8.2) g/dL Albumin 4.3 (3.5-5.0) g/dL Amylase 56 (30-110) U/L Lipase 76 (23-300) U/L Urine Color Light Yellow Urine Appearance Clear (Clear) Urine pH 6.0 (5.0-8.0) Ur Specific [place] 1.011 (1.001-1.035) Urine Protein Negative (Negative) Urine Glucose (UA) Negative (Negative) Urine Ketones Negative (Negative) Urine Blood Negative (Negative) Urine Nitrite Negative (Negative) Urine Bilirubin Negative (Negative) Urine Urobilinogen <2.0 (<2.0) mg/dL Ur Leukocyte Esterase Large H (Negative) Urine RBC 1 (0-5) /hpf Urine WBC 18 H (0-5) /hpf Ur Squamous Epith Cells <1 (0-4) /hpf Urine Bacteria Rare H (None) /hpf Urine Mucus Rare H (None) /hpf 06/15/23 Range/Units 02:15 WBC (3.8-10.6) k/uL RBC (3.80-5.40) m/uL Hgb (11.4-16.0) gm/dL Hct (34.0-46.0) % MCV (80.0-100.0) fL MCH (25.0-35.0) pg MCHC (31.0-37.0) g/dL RDW (11.5-15.5) % Plt Count (150-450) k/uL MPV Neutrophils % % Lymphocytes % % Monocytes % % Eosinophils % % Basophils % % Neutrophils # (1.3-7.7) k/uL Lymphocytes # (1.0-4.8) k/uL Monocytes # (0-1.0) k/uL Eosinophils # (0-0.7) k/uL Basophils # (0-0.2) k/uL Sodium (137-145) mmol/L Potassium (3.5-5.1) mmol/L Chloride (98-107) mmol/L Carbon Dioxide (22-30) mmol/L Anion Gap mmol/L BUN (7-17) mg/dL Creatinine (0.52-1.04) mg/dL Est GFR (CKD-EPI)AfAm (>60 ml/min/1.73 sqM) Est GFR (CKD-EPI)NonAf (>60 ml/min/1.73 sqM) Glucose (74-99) mg/dL Plasma Lactic Acid Bereket 1.2 (0.7-2.0) mmol/L Calcium (8.4-10.2) mg/dL Total Bilirubin (0.2-1.3) mg/dL AST (14-36) U/L ALT (4-34) U/L Alkaline Phosphatase (38-126) U/L C-Reactive Protein (<1.0) mg/dL Total Protein (6.3-8.2) g/dL Albumin (3.5-5.0) g/dL Amylase (30-110) U/L Lipase (23-300) U/L Urine Color Urine Appearance (Clear) Urine pH (5.0-8.0) Ur Specific [place] (1.001-1.035) Urine Protein (Negative) Urine Glucose (UA) (Negative) Urine Ketones (Negative) Urine Blood (Negative) Urine Nitrite (Negative) Urine Bilirubin (Negative) Urine Urobilinogen (<2.0) mg/dL Ur Leukocyte Esterase (Negative) Urine RBC (0-5) /hpf Urine WBC (0-5) /hpf Ur Squamous Epith Cells (0-4) /hpf Urine Bacteria (None) /hpf Urine Mucus (None) /hpf Disposition Clinical Impression: Colitis, UTI (urinary tract infection) Disposition: HOME SELF-CARE Condition: Good Instructions (If sedation given, give patient instructions): Urinary Tract Infection in Women (ED), Colitis (ED) Prescriptions: Sulfamethox-Tmp 800-160Mg [Bactrim Ds] 1 each PO Q12HR #6 tab predniSONE [Deltasone] 20 mg PO BID #8 tab Is patient prescribed a controlled substance at d/c from ED?: No Referrals: Leslie Estrada MD [Primary Care Provider] - 1-2 days Tasha Fuller MD [STAFF PHYSICIAN] - 1-2 days
[2023-06-15] MEDS: SODIUM CHLORIDE 0.9% 500 ML 500 ML IV STA (01:50)
--- NOTE | 2023-06-15 01:57 | CT ---
EXAM: CT Abdomen and Pelvis Without Intravenous Contrast CLINICAL HISTORY: ITS.REASON CT Reason: abdominal pain, LLQ TECHNIQUE: Axial computed tomography images of the abdomen and pelvis without intravenous contrast. CTDI is 9.10 mGy and DLP is 544.5 mGy-cm. This CT exam was performed using one or more of the following dose reduction techniques: automated exposure control, adjustment of the mA and/or kV according to patient size, and/or use of iterative reconstruction technique. COMPARISON: No previous studies. FINDINGS: Lung bases: Unremarkable. No mass. No consolidation. Pleural space: Unremarkable. No pneumothorax. No pleural effusions. Heart: Heart is normal in size. Mediastinum: Small to moderate hiatal hernia and distal esophagitis. ABDOMEN: Liver: Fatty liver is noted. Gallbladder and bile ducts: Unremarkable. No calcified stones. No ductal dilation. Pancreas: See below. Spleen: Spleen is normal in contour. Adrenals: The adrenal glands, the head, body, tail of the pancreas are unremarkable. Kidneys and ureters: Unremarkable. No renal calculus or hydronephrosis. Stomach and bowel: Wall thickening of the colon, most notably the ascending colon. Inflammatory or infectious colitis should be considered. Moderate quantity of ingested material in the stomach. No bowel obstruction. PELVIS: Appendix: Appendix is seen on coronal image 34 and is unremarkable. Bladder: Bladder is underdistended. No stones. Reproductive: Unremarkable as visualized. ABDOMEN and PELVIS: Intraperitoneal space: Unremarkable. No free air. No significant fluid collection. Bones/joints: No acute fracture. No dislocation. No spondylolysis. Soft tissues: The patient is status post left mastectomy. Mild midline diastasis rectus with associated 3 cm bulge containing only mesenteric fat. Vasculature: Atherosclerotic disease of the abdominal aorta without change in caliber. No abdominal aortic aneurysm. Lymph nodes: Unremarkable. No enlarged lymph nodes. IMPRESSION: 1. No appendicitis. 2. Consider mild inflammatory/infectious colitis. 3. Status post left mastectomy. 4. Hiatal hernia and probable distal esophagitis. 5. Fatty liver. 6. Status post cholecystectomy. 7. No renal calculus or hydronephrosis.
[2023-06-15 02:21] LABS: Basophils # (A) 0.1 k/uL (0-0.2); Basophils % (A) 1 %; Eosinophils # (A) 0.2 k/uL (0-0.7); Eosinophils % (A) 3 %; HCT 43.4 % (34.0-46.0); HGB 14.6 gm/dL (11.4-16.0); Lymphocytes # (A) 2.4 k/uL (1.0-4.8); Lymphocytes % (A) 30 %; MCH 29.4 pg (25.0-35.0); MCHC 33.5 g/dL (31.0-37.0); MCV 87.8 fL (80.0-100.0); Monocytes # (A) 0.5 k/uL (0-1.0); Monocytes % (A) 6 %; Neutrophils # (A) 4.6 k/uL (1.3-7.7); Neutrophils % (A) 58 %; Platelet Count 308 k/uL (150-450); RBC 4.95 m/uL (3.80-5.40)
[2023-06-15 02:42] LABS: ALT 23 U/L (4-34); AST 30 U/L (14-36); African American GFR (CKD) 90 (>60 ml/min/1.73 sqM); Albumin 4.3 g/dL (3.5-5.0); Alkaline Phosphatase 74 U/L (38-126); Amylase 56 U/L (30-110); Anion Gap 7 mmol/L; Blood Urea Nitrogen 11 mg/dL (7-17); C Reactive Protein 0.6 mg/dL (<1.0); Calcium 10.6 mg/dL (8.4-10.2); Carbon Dioxide 23 mmol/L (22-30); Chloride 108 mmol/L (98-107); Glucose 102 mg/dL (74-99); Lipase 76 U/L (23-300); Non-African American GFR(CKD) 78 (>60 ml/min/1.73 sqM); Sodium 138 mmol/L (137-145); Total Bilirubin 0.9 mg/dL (0.2-1.3); Total Protein 7.2 g/dL (6.3-8.2)
[2023-06-15 02:51] LABS: Appearance,Urine Clear (Clear); Bacteria,Urine Rare /hpf; Bilirubin,Urine Negative (Negative); Blood,Urine Negative (Negative); Color,Urine Light Yellow; Glucose,Urine (UA) Negative (Negative); Ketones,Urine Negative (Negative); Leukocyte Esterase,Urine Large (Negative); Mucus,Urine Rare /hpf; Nitrite,Urine Negative (Negative); Protein,Urine Negative (Negative); RBC,Urine 1 /hpf (0-5); Specific Gravity,Urine 1.011 (1.001-1.035); Squamous Epithelial Cell,Urine <1 /hpf (0-4); Urobilinogen,Urine <2.0 mg/dL (<2.0); WBC,Urine 18 /hpf (0-5)
[2023-06-15] MEDS: SULFAMETHOX-TMP 800-160MG 1 EACH TAB PO STA (04:25)
[2023-06-15 04:44] VITALS: BP 148/89; PULSE 77; TEMP 98.9
== END 2023-06-15 04:26 | disposition home or self-care (01) ==
LOC: EC 00:54
DX: K52.9 Noninfective gastroenteritis and colitis, unspecified (principal); N39.0 Urinary tract infection, site not specified; K44.9 Diaphragmatic hernia without obstruction or gangrene; K76.0 Fatty (change of) liver, not elsewhere classified; I48.91 Unspecified atrial fibrillation; E78.5 Hyperlipidemia, unspecified; Z87.891 Personal history of nicotine dependence; Z79.899 Other long term (current) drug therapy; Z91.030 Bee allergy status
CPT/HCPCS: 36415; 74176; 80053; 81001; 82150; 83605; 83690; 85025; 86140; 87045; 87046; 96360; 99284

== ENCOUNTER 2023-06-18 00:42 | Emergency (ER) | payer MEDICARE, OTHER ==
[2023-06-18 01:01] VITALS: RESP 18
--- NOTE | 2023-06-18 01:18 | ED ---
Abdominal Pain HPI - General Chief Complaint: Abdominal Pain Stated Complaint: back pain rash on back Time Seen by Provider: 06/18/23 01:17 Source: patient Mode of arrival: ambulatory Limitations: no limitations - History of Present Illness Initial Comments: 72-year-old female presenting with chief complaint of abdominal pain. She was seen here a few days ago and diagnosed with UTI and colitis. She was started on Bactrim and prednisone. She states that she has had worsening left lower quadrant pain. Pain also radiates to the back. Patient also notices a new rash. This rash is not painful or pruritic. This is elevated pink patches near the left flank and abdomen. She denies nausea, vomiting, chest pain, difficulty breathing, fever, chills, dysuria, hematuria, diarrhea. - Related Data Home Medications Medication Instructions Recorded Confirmed Simvastatin [Zocor] 20 mg PO HS 07/01/19 01/15/23 Cyanocobalamin (Vitamin B-12) 1,000 mcg PO DAILY 01/24/20 01/15/23 [Vitamin B-12] Metoprolol Tartrate [Lopressor] 25 mg PO BID 01/24/20 01/15/23 Multivitamins, Thera [Multivitamin 1 tab PO WINN 01/24/20 01/15/23 (formulary)] Previous Rx's Medication Instructions Recorded Nystatin/Triamcin 1 applic TOPICAL BID #30 gram 09/25/22 [Nystatin-Triamcinolone Cream] Nystatin/Triamcin 1 applic TOPICAL BID #30 gram 01/15/23 [Nystatin-Triamcinolone Cream] Sulfamethox-Tmp 800-160Mg [Bactrim 1 each PO Q12HR #6 tab 06/15/23 Ds] predniSONE [Deltasone] 20 mg PO BID #8 tab 06/15/23 Dicyclomine [Bentyl] 20 mg PO QID PRN #10 tablet 06/18/23 Allergies Allergy/AdvReac Type Severity Reaction Status Date / Time bee venom protein (honey bee) Allergy Anaphylaxis Verified 06/18/23 00:58 Review of Systems ROS Statement: Those systems with pertinent positive or pertinent negative responses have been documented in the HPI. ROS Other: All systems not noted in ROS Statement are negative. Past Medical History Past Medical History: Atrial Fibrillation, Cancer, Hyperlipidemia Additional Past Medical History / Comment(s): Do Not Use Left Arm for IV or BP- left breast CA with lumpectomy, radiation and chemo 2002. 09/11/19 Diverticulitis w/ perforation, colostomy; developed AFib w/ RVR, pulmonary edema post-op. Diverticulitis History of Any Multi-Drug Resistant Organisms: None Reported Past Surgical History: Bowel Resection, Breast Surgery, Cholecystectomy, Tonsillectomy Additional Past Surgical History / Comment(s): L breast lumpectomy 2002. Gomez proc w/ Colostomy 09/11/19 Past Anesthesia/Blood Transfusion Reactions: Motion Sickness Additional Past Anesthesia/Blood Transfusion Reaction / Comment(s): Pt has never recieved blood. Past Psychological History: No Psychological Hx Reported Smoking Status: Former smoker Past Alcohol Use History: Occasional Past Drug Use History: None Reported - Past Family History Father Family Medical History: Myocardial Infarction (CA) Additional Family Medical History / Comment(s): Father had a CA in his 60's. He from a post op hip infection at age 73 yrs. no gallbladder disease Mother Family Medical History: Eye Disorder, Hypertension Additional Family Medical History / Comment(s): Mother had glaucoma. She at age 82 yrs. General Exam - General Exam Comments Initial Comments: Visual Physical Exam Vital signs reviewed General: Well-appearing, nontoxic, no acute distress. Head: Normocephalic, atraumatic Eyes: PERRLA, EOMI ENT: Airway patent Chest: Nonlabored breathing Skin: No visual rash, normal skin tone Neuro: Alert and oriented 3 Musculoskeletal: No gross abnormalities Limitations: no limitations General appearance: alert, in no apparent distress Head exam: Present: atraumatic, normocephalic Eye exam: Present: normal appearance Neck exam: Present: normal inspection Respiratory exam: Present: normal lung sounds bilaterally. Absent: respiratory distress, wheezes, rales, rhonchi, stridor Cardiovascular Exam: Present: regular rate, normal rhythm, normal heart sounds. Absent: systolic murmur, diastolic murmur, rubs, gallop, clicks GI/Abdominal exam: Present: soft. Absent: distended, tenderness, guarding, rebound, rigid Neurological exam: Present: alert, oriented X3 Psychiatric exam: Present: normal affect, normal mood Expanded Type of lesion: Present: rash, other (negative nikolsky sign) Distribution of rash: abdomen (Elevated pink patches) Description of rash: Absent: tenderness Course Vital Signs 06/18/23 06/18/23 06/18/23 00:57 01:47 05:17 Temperature 98 F 98.2 F 98.4 F Pulse Rate 75 72 74 Respiratory 18 18 18 Rate Blood Pressure 140/81 138/77 132/81 O2 Sat by Pulse 97 98 98 Oximetry Medical Decision Making - Medical Decision Making Was pt. sent in by a medical professional or institution (, PA, [facility], urgent care, hospital, or residential...) When possible be specific @ -No Did you speak to anyone other than the patient for history (EMS, parent, family, police, friend...)? What history was obtained from this source @ -No Did you review nursing and triage notes (agree or disagree)? Why? @ -I reviewed and agree with nursing and triage notes Were old charts reviewed (outside hosp., previous admission, EMS record, old EKG, old radiological studies, urgent care reports/EKG's, residential records)? Report findings @ -Most recent ER visit is reviewed Differential Diagnosis (chest pain, altered mental status, abdominal pain women, abdominal pain men, vaginal bleeding, weakness, fever, dyspnea, syncope, headache, dizziness, GI bleed, back pain, seizure, CVA, palpatations, mental health, musculoskeletal)? @ -MDM Differential Abdominal Pain Women: Appendicitis, Cholecystitis, diverticulosis, ischemic bowel, pancreatitis, hepatitis, UTI, gastroenteritis, AAA, incarcerated hernia, bowel obstruction, constipation, inflammatory bowel, hepatitis, peptic ulcer disease, splenic infarction, perforated viscus, vulvitis, ovarian torsion, PID, kidney stone, placenta abruption... This is not meant to be an all-inclusive list EKG interpreted by me (3pts min.). @ -As above X-rays interpreted by me (1pt min.). @ -None done CT interpreted by me (1pt min.). @ -CT shows no bowel obstruction or ileus. Few scattered colonic diverticuli without diverticulitis. Small hiatal hernia. Otherwise no change. U/S interpreted by me (1pt. min.). @ -None done What testing was considered but not performed or refused? (CT, X-rays, U/S, labs)? Why? @ -None What meds were considered but not given or refused? Why? @ -None Did you discuss the management of the patient with other professionals (christine roe i.e. , PA, [employer], lab, RT, psych nurse, social work professor, sulfuric acid plant operator, teacher, public records officer, caser up)? Give summary @ -No Was smoking cessation discussed for >3mins.? @ -No Was critical care preformed (if so, how long)? @ -No Were there social determinants of health that impacted care today? How? (Homelessness, low income, unemployed, alcoholism, drug addiction, transportation, low edu. Level, literacy, decrease access to med. care, group home, rehab)? @ -No Was there de-escalation of care discussed even if they declined (Discuss DNR or withdrawal of care, Hospice)? DNR status @ -No What co-morbidities impacted this encounter? (DM, HTN, Smoking, COPD, CAD, Cancer, CVA, ARF, Chemo, Hep., AIDS, mental health diagnosis, sleep apnea, morbid obesity)? @ -None Was patient admitted / discharged? Hospital course, mention meds given and route, prescriptions, significant lab abnormalities, going to OR and other pertinent info. @ -72-year-old female presenting with chief complaint of left lower abdominal pain. Was seen here recently and treated for colitis with steroids and UTI with Bactrim. History and physical examination are performed. Patient has a pink rash over the left-sided abdomen and flank. This is not painful or pruritic. Negative Nikolsky sign. No discharge or weeping. Lab work shows no leukocytosis or anemia. Mild transaminitis with AST 49 and ALT 35. Glucose 128 and calcium 10.8. Urine shows no infectious process or bleeding. CT shows no acute process. Patient is educated on today's findings. She is instructed to follow-up with her cage tender Dr. Arango. Given that the patient has a new rash, she is instructed to discontinue Bactrim. Follow-up with PCP. Discharged home. Follow-up with PCP. Report back to ER with any new or worsen ing symptoms. Discussed return parameters and answered all questions. Patient conveyed verbal understanding and agreed to the plan. I discussed this case in detail with my attending Dr. Metz Undiagnosed new problem with uncertain prognosis? @ -No Drug Therapy requiring intensive monitoring for toxicity (Heparin, Nitro, Insulin, Cardizem)? @ -No Were any procedures done? @ -No Diagnosis/symptom? @ -Abdominal pain Acute, or Chronic, or Acute on Chronic? @ -Acute Uncomplicated (without systemic symptoms) or Complicated (systemic symptoms)? @ -Uncomplicated Side effects of treatment? @ -No Exacerbation, Progression, or Severe Exacerbation? @ -No Poses a threat to life or bodily function? How? (Chest pain, USA, CA, pneumonia, PE, COPD, DKA, ARF, appy, cholecystitis, CVA, Diverticulitis, Homicidal, Suicidal, threat to staff... and all critical care pts) @ -No - Lab Data Result diagrams: 06/18/23 01:44 06/18/23 01:44 Lab Results 06/18/23 06/18/23 06/18/23 Range/Units 01:44 01:44 01:44 WBC 10.6 (3.8-10.6) k/uL RBC 4.92 (3.80-5.40) m/uL Hgb 14.5 (11.4-16.0) gm/dL Hct 43.4 (34.0-46.0) % MCV 88.4 (80.0-100.0) fL MCH 29.5 (25.0-35.0) pg MCHC 33.4 (31.0-37.0) g/dL RDW 13.4 (11.5-15.5) % Plt Count 315 (150-450) k/uL MPV 7.5 Neutrophils % 83 % Lymphocytes % 10 % Monocytes % 5 % Eosinophils % 1 % Basophils % 1 % Neutrophils # 8.8 H (1.3-7.7) k/uL Lymphocytes # 1.0 (1.0-4.8) k/uL Monocytes # 0.6 (0-1.0) k/uL Eosinophils # 0.1 (0-0.7) k/uL Basophils # 0.1 (0-0.2) k/uL Sodium 138 (137-145) mmol/L Potassium 4.6 (3.5-5.1) mmol/L Chloride 105 (98-107) mmol/L Carbon Dioxide 24 (22-30) mmol/L Anion Gap 9 mmol/L BUN 17 (7-17) mg/dL Creatinine 1.02 (0.52-1.04) mg/dL Est GFR (CKD-EPI)AfAm 64 (>60 ml/min/1.73 sqM) Est GFR (CKD-EPI)NonAf 56 (>60 ml/min/1.73 sqM) Glucose 128 H (74-99) mg/dL Plasma Lactic Acid Bereket 1.4 (0.7-2.0) mmol/L Calcium 10.8 H (8.4-10.2) mg/dL Total Bilirubin 0.8 (0.2-1.3) mg/dL AST 49 H (14-36) U/L ALT 35 H (4-34) U/L Alkaline Phosphatase 74 (38-126) U/L Total Protein 8.0 (6.3-8.2) g/dL Albumin 4.9 (3.5-5.0) g/dL Amylase 74 (30-110) U/L Lipase 238 (23-300) U/L Urine Color Urine Appearance (Clear) Urine pH (5.0-8.0) Ur Specific [place] (1.001-1.035) Urine Protein (Negative) Urine Glucose (UA) (Negative) Urine Ketones (Negative) Urine Blood (Negative) Urine Nitrite (Negative) Urine Bilirubin (Negative) Urine Urobilinogen (<2.0) mg/dL Ur Leukocyte Esterase (Negative) 06/18/23 Range/Units 04:00 WBC (3.8-10.6) k/uL RBC (3.80-5.40) m/uL Hgb (11.4-16.0) gm/dL Hct (34.0-46.0) % MCV (80.0-100.0) fL MCH (25.0-35.0) pg MCHC (31.0-37.0) g/dL RDW (11.5-15.5) % Plt Count (150-450) k/uL MPV Neutrophils % % Lymphocytes % % Monocytes % % Eosinophils % % Basophils % % Neutrophils # (1.3-7.7) k/uL Lymphocytes # (1.0-4.8) k/uL Monocytes # (0-1.0) k/uL Eosinophils # (0-0.7) k/uL Basophils # (0-0.2) k/uL Sodium (137-145) mmol/L Potassium (3.5-5.1) mmol/L Chloride (98-107) mmol/L Carbon Dioxide (22-30) mmol/L Anion Gap mmol/L BUN (7-17) mg/dL Creatinine (0.52-1.04) mg/dL Est GFR (CKD-EPI)AfAm (>60 ml/min/1.73 sqM) Est GFR (CKD-EPI)NonAf (>60 ml/min/1.73 sqM) Glucose (74-99) mg/dL Plasma Lactic Acid Bereket (0.7-2.0) mmol/L Calcium (8.4-10.2) mg/dL Total Bilirubin (0.2-1.3) mg/dL AST (14-36) U/L ALT (4-34) U/L Alkaline Phosphatase (38-126) U/L Total Protein (6.3-8.2) g/dL Albumin (3.5-5.0) g/dL Amylase (30-110) U/L Lipase (23-300) U/L Urine Color Colorless Urine Appearance Clear (Clear) Urine pH 7.0 (5.0-8.0) Ur Specific [place] >1.050 H (1.001-1.035) Urine Protein Negative (Negative) Urine Glucose (UA) Negative (Negative) Urine Ketones Negative (Negative) Urine Blood Negative (Negative) Urine Nitrite Negative (Negative) Urine Bilirubin Negative (Negative) Urine Urobilinogen <2.0 (<2.0) mg/dL Ur Leukocyte Esterase Negative (Negative) Disposition Clinical Impression: Abdominal pain Disposition: HOME SELF-CARE Condition: Good Instructions (If sedation given, give patient instructions): High Fiber Diet (ED), Abdominal Pain (ED) Additional Instructions: Follow-up with PCP and GI. Report back to ER with any new or worsening symptoms. If you are experiencing persistent constipation, you may take [id number] magnesium citrate per package instructions. Take Bentyl as needed for abdominal pain. Discontinue Bactrim use Prescriptions: Dicyclomine [Bentyl] 20 mg PO QID PRN #10 tablet PRN Reason: Pain Is patient prescribed a controlled substance at d/c from ED?: No Referrals: Leslie Estrada MD [Primary Care Provider] - 1-2 days Tasha Fuller MD [STAFF PHYSICIAN] - 1-2 days Time of Disposition: 05:06
[2023-06-18 01:54] LABS: Basophils # (A) 0.1 k/uL (0-0.2); Basophils % (A) 1 %; Eosinophils # (A) 0.1 k/uL (0-0.7); Eosinophils % (A) 1 %; HCT 43.4 % (34.0-46.0); HGB 14.5 gm/dL (11.4-16.0); Lymphocytes % (A) 10 %; MCH 29.5 pg (25.0-35.0); MCHC 33.4 g/dL (31.0-37.0); MCV 88.4 fL (80.0-100.0); Mean Platelet Volume 7.5; Monocytes # (A) 0.6 k/uL (0-1.0); Monocytes % (A) 5 %; Neutrophils # (A) 8.8 k/uL (1.3-7.7); Neutrophils % (A) 83 %; Platelet Count 315 k/uL (150-450); RBC 4.92 m/uL (3.80-5.40); RDW 13.4 % (11.5-15.5); WBC 10.6 k/uL (3.8-10.6)
[2023-06-18] MEDS: ONDANSETRON 4 MG/2 ML VIAL IVP STA (02:37)
[2023-06-18] MEDS: MORPHINE SULFATE 4 MG/ML SYRINGE IVP STA (02:37)
[2023-06-18 02:41] LABS: ALT 35 U/L (4-34); AST 49 U/L (14-36); African American GFR (CKD) 64 (>60 ml/min/1.73 sqM); Albumin 4.9 g/dL (3.5-5.0); Alkaline Phosphatase 74 U/L (38-126); Amylase 74 U/L (30-110); Anion Gap 9 mmol/L; Blood Urea Nitrogen 17 mg/dL (7-17); Calcium 10.8 mg/dL (8.4-10.2); Carbon Dioxide 24 mmol/L (22-30); Chloride 105 mmol/L (98-107); Glucose 128 mg/dL (74-99); Lipase 238 U/L (23-300); Non-African American GFR(CKD) 56 (>60 ml/min/1.73 sqM); Potassium 4.6 mmol/L (3.5-5.1); Sodium 138 mmol/L (137-145); Total Bilirubin 0.8 mg/dL (0.2-1.3)
--- NOTE | 2023-06-18 03:47 | CT ---
EXAM: CT Abdomen and Pelvis With Intravenous Contrast CLINICAL HISTORY: LLQ pain TECHNIQUE: Axial computed tomography images of the abdomen and pelvis with intravenous contrast. CTDI is 18.6 mGy and DLP is 864.8 mGy-cm. This CT exam was performed using one or more of the following dose reduction techniques: automated exposure control, adjustment of the mA and/or kV according to patient size, and/or use of iterative reconstruction technique. COMPARISON: 06/15/2023. FINDINGS: Lung bases: Status post left mastectomy. No mass. No consolidation. ABDOMEN: Liver: Mildly hypodense/fatty. 7 mm probable cyst in the right lobe of liver. Gallbladder and bile ducts: Post cholecystectomy. No ductal dilation. Pancreas: Unremarkable. No mass. No ductal dilation. Spleen: Unremarkable. No splenomegaly. Adrenals: Unremarkable. No mass. Kidneys and ureters: No obstructive uropathy. No renal or ureteral calculus. 9 mm cyst in the lower pole of the left kidney. Stomach and bowel: Small hiatal hernia. No obstruction or ileus. Scattered colonic diverticuli without evidence for diverticulitis. PELVIS: Appendix: No evidence for appendicitis. Bladder: Unremarkable. No mass. Reproductive: Uterus and ovaries are grossly unremarkable. ABDOMEN and PELVIS: Intraperitoneal space: No free air. No free fluid. Bones/joints: No acute fracture. Soft tissues: Unremarkable. Vasculature: Atherosclerotic vascular calcifications. No abdominal aortic aneurysm. Lymph nodes: Unremarkable. No enlarged lymph nodes. IMPRESSION: No bowel obstruction or ileus. Few scattered colonic diverticuli without diverticulitis. Small hiatal hernia. Otherwise no change.
[2023-06-18 04:52] LABS: Appearance,Urine Clear (Clear); Bilirubin,Urine Negative (Negative); Blood,Urine Negative (Negative); Color,Urine Colorless; Glucose,Urine (UA) Negative (Negative); Ketones,Urine Negative (Negative); Leukocyte Esterase,Urine Negative (Negative); Nitrite,Urine Negative (Negative); Protein,Urine Negative (Negative); Urobilinogen,Urine <2.0 mg/dL (<2.0)
[2023-06-18 04:59] LABS: Specific Gravity,Urine >1.050 (1.001-1.035)
[2023-06-18 05:22] VITALS: BP 132/81; PULSE 74; TEMP 98.4
== END 2023-06-18 05:19 | disposition home or self-care (01) ==
LOC: EC 00:42
DX: K44.9 Diaphragmatic hernia without obstruction or gangrene (principal); E78.5 Hyperlipidemia, unspecified; I48.91 Unspecified atrial fibrillation; Z79.899 Other long term (current) drug therapy; Z87.891 Personal history of nicotine dependence; Z91.030 Bee allergy status; Z90.49 Acquired absence of other specified parts of digestive tract
CPT/HCPCS: 99285 ×2; 96374 ×2; 96375 ×2; 36415; 80053; 82150; 83605; 83690; 85025; 81003; 74177; J2270; J2405; Q9967

== ENCOUNTER 2023-08-16 22:23 | Emergency (ER) | payer MEDICARE, OTHER ==
[2023-08-16 23:20] VITALS: TEMP 98
--- NOTE | 2023-08-17 00:15 | ED ---
General Adult HPI - General Chief complaint: Nausea/Vomiting/Diarrhea Stated complaint: syncope NVD Time Seen by Provider: 08/16/23 23:53 Source: patient, family Mode of arrival: wheelchair Limitations: no limitations - History of Present Illness Initial comments: Dictation was produced using [employer] dictation software. please excuse any grammatical, word or spelling errors. Chief Complaint: 73-year-old female presents to the emergency department with nausea vomiting diarrhea and syncope History of Present Illness: Patient 73-year-old female she has multiple comorbidities. Presents to the emergency department after having had 2 syncopal episodes. She has been suffering from vomiting and diarrhea for the last 2 to 3 days. She was sitting on the toilet when she fell. Fall was unwitnessed.. was in the other room heard a thud. He went to assess the patient and she was awake. No tonic-clonic activity noted. She was helped up by her when she had another syncopal episode. Since that time patient states she is seemingly feeling fine now. She does not have any history of cardiomyopathy. The ROS documented in this emergency department record has been reviewed and confirmed by me. Those systems with pertinent positive or negative responses have been documented in the HPI. All other systems are other negative and/or noncontributory. - Related Data Home Medications Medication Instructions Recorded Confirmed Simvastatin [Zocor] 20 mg PO HS 07/01/19 01/15/23 Cyanocobalamin (Vitamin B-12) 1,000 mcg PO DAILY 01/24/20 01/15/23 [Vitamin B-12] Metoprolol Tartrate [Lopressor] 25 mg PO BID 01/24/20 01/15/23 Multivitamins, Thera [Multivitamin 1 tab PO WINN 01/24/20 01/15/23 (formulary)] Previous Rx's Medication Instructions Recorded Nystatin/Triamcin 1 applic TOPICAL BID #30 gram 09/25/22 [Nystatin-Triamcinolone Cream] Nystatin/Triamcin 1 applic TOPICAL BID #30 gram 01/15/23 [Nystatin-Triamcinolone Cream] Sulfamethox-Tmp 800-160Mg [Bactrim 1 each PO Q12HR #6 tab 06/15/23 Ds] predniSONE [Deltasone] 20 mg PO BID #8 tab 06/15/23 Dicyclomine [Bentyl] 20 mg PO QID PRN #10 tablet 06/18/23 Allergies Allergy/AdvReac Type Severity Reaction Status Date / Time bee venom protein (honey bee) Allergy Anaphylaxis Verified 08/16/23 22:46 Review of Systems ROS Statement: Those systems with pertinent positive or pertinent negative responses have been documented in the HPI. ROS Other: All systems not noted in ROS Statement are negative. Past Medical History Past Medical History: Atrial Fibrillation, Cancer, Hyperlipidemia Additional Past Medical History / Comment(s): Do Not Use Left Arm for IV or BP- left breast CA with lumpectomy, radiation and chemo 2002. 09/11/19 Diverticulitis w/ perforation, colostomy; developed AFib w/ RVR, pulmonary edema post-op. Diverticulitis, shingles 07/2023 History of Any Multi-Drug Resistant Organisms: None Reported Past Surgical History: Bowel Resection, Breast Surgery, Cholecystectomy, Tonsillectomy Additional Past Surgical History / Comment(s): L breast lumpectomy 2002. Gomez proc w/ Colostomy 09/11/19 Past Anesthesia/Blood Transfusion Reactions: Motion Sickness Additional Past Anesthesia/Blood Transfusion Reaction / Comment(s): Pt has never recieved blood. Past Psychological History: No Psychological Hx Reported Smoking Status: Former smoker Past Alcohol Use History: Occasional Past Drug Use History: None Reported - Past Family History Father Family Medical History: Myocardial Infarction (DC) Additional Family Medical History / Comment(s): Father had a DC in his 60's. He from a post op hip infection at age 73 yrs. no gallbladder disease Mother Family Medical History: Eye Disorder, Hypertension Additional Family Medical History / Comment(s): Mother had glaucoma. She at age 82 yrs. General Exam - General Exam Comments Initial Comments: PHYSICAL EXAM: General Impression: Alert and oriented x3, not in acute distress HEENT: Normocephalic atraumatic, extra-ocular movements intact, pupils equal and reactive to light bilaterally, mucous membranes moist. Cardiovascular: Heart regular rate and rhythm Chest: Able to complete full sentences, no retractions, no tachypnea Abdomen: abdomen soft, non-tender, non-distended, no organomegaly Musculoskeletal: Pulses present and equal in all extremities Motor: no focal deficits noted Neurological: CN II-XII grossly intact, no focal motor or sensory deficits noted Skin: Intact with no visualized rashes Psych: Normal affect and mood Limitations: no limitations Course Vital Signs 08/16/23 08/17/23 22:46 02:09 Temperature 98.0 F Pulse Rate 89 74 Respiratory 17 18 Rate Blood Pressure 133/79 123/69 O2 Sat by Pulse 99 98 Oximetry EKG Findings - EKG Comments: EKG Findings:: My EKG interpretation: Ventricular rate 70, sinus rhythm,. 162, cures 79, QTc 427. No DC prolongation, no QTC prolongation, no ST or T-wave changes noted. Overall, this EKG is unremarkable Medical Decision Making - Medical Decision Making Was pt. sent in by a medical professional or institution (, PA, MANAGER PUBLIC, urgent care, hospital, or custodial...) When possible be specific @ -No Did you speak to anyone other than the patient for history (EMS, parent, family, police, friend...)? What history was obtained from this source @ -No Did you review nursing and triage notes (agree or disagree)? Why? @ -I reviewed and agree with nursing and triage notes Were old charts reviewed (outside hosp., previous admission, EMS record, old EKG, old radiological studies, urgent care reports/EKG's, custodial records)? Report findings @ -No old charts were reviewed Differential Diagnosis (chest pain, altered mental status, abdominal pain women, abdominal pain men, vaginal bleeding, musculoskeletal, weakness, fever, dyspnea, syncope, headache, dizziness, GI bleed, back pain, seizure, CVA, pal patations, mental health)? @ -Differential Syncope: Valvular disease, hypertrophic cardiomyopathy, pulmonary embolism, tamponade, tachycardia, bradycardia, DC, hypovolemia, hemorrhage, dissection, anemia, intracranial hemorrhage, seizure, hypoglycemia, carbon monoxide poisoning, this is not meant to be an all-inclusive list. EKG interpreted by me (3pts min.). @ -See above X-rays interpreted by me (1pt min.). @ -Chest x-ray is nonacute CT interpreted by me (1pt min.). @ -CT scan of the brain and C-spine shows no acute processes. U/S interpreted by me (1pt. min.). @ -None done What testing was considered but not performed or refused? (CT, X-rays, U/S, labs)? Why? @ -None What meds were considered but not given or refused? Why? @ -None Did you discuss the management of the patient with other professionals (professionals i.e. , PA, MANAGER PUBLIC, lab, RT, psych nurse, psychotherapist social worker, automotive general sales manager, teacher, dog license officer supervisor, case folder)? Give summary @ -No Was smoking cessation discussed for >3mins.? @ -No Was critical care preformed (if so, how long)? @ -No Were there social determinants of health that impacted care today? How? (Homelessness, low income, unemployed, alcoholism, drug addiction, transportation, low edu. Level, literacy, decrease access to med. care, half-way, rehab)? @ -No Was there de-escalation of care discussed even if they declined (Discuss DNR or withdrawal of care, Hospice)? DNR status @ -No What co-morbidities impacted this encounter? (DM, HTN, Smoking, COPD, CAD, Cancer, CVA, ARF, Chemo, Hep., AIDS, mental health diagnosis, sleep apnea, morbid obesity)? @ -None Was patient admitted / discharged? Hospital course, mention meds given and route, prescriptions, significant lab abnormalities, going to OR and other pertinent info. @ -73-year-old female presents to the emergency department with symptoms of gastroenteritis for the last 24 hours. She also has suffered 2 episodes of syncope. Vital signs upon arrival are within acceptable limits. Patient has no history of cardiomyopathy. Laboratory evaluation within acceptable limits. Chest x-ray and CT imaging is nonacute. EKG is benign. Patient observed in the emergency department for approximately 5 hours. Reevaluated bedside at 3:25 AM found to be in stable condition. Patient will be discharged. Likely cause of syncope is vasovagal episode. Undiagnosed new problem with uncertain prognosis? @ -No Drug Therapy requiring intensive monitoring for toxicity (Heparin, Nitro, Insulin, Cardizem)? @ -No Were any procedures done? @ -No Diagnosis/symptom? Acute, or Chronic, or Acute on Chronic? Uncomplicated (without systemic symptoms) or Complicated (systemic symptoms)? @ -Syncope, no high risk features Side effects of treatment? @ -No Exacerbation, Progression, or Severe Exacerbation? @ -No Poses a threat to life or bodily function? How? (Chest pain, USA, DC, pneumonia, PE, COPD, DKA, ARF, appy, cholecystitis, CVA, Diverticulitis, Homicidal, Suicidal, threat to staff... and all critical care pts) @ -No - Lab Data Result diagrams: 08/17/23 00:22 08/17/23 00:22 Lab Results 08/17/23 08/17/23 08/17/23 Range/Units 00:22 00:22 00:22 WBC 15.4 H (3.8-10.6) k/uL RBC 4.98 (3.80-5.40) m/uL Hgb 14.4 (11.4-16.0) gm/dL Hct 44.3 (34.0-46.0) % MCV 89.0 (80.0-100.0) fL MCH 28.9 (25.0-35.0) pg MCHC 32.5 (31.0-37.0) g/dL RDW 12.5 (11.5-15.5) % Plt Count 285 (150-450) k/uL MPV 7.9 Neutrophils % 88 % Lymphocytes % 5 % Monocytes % 5 % Eosinophils % 1 % Basophils % 0 % Neutrophils # 13.5 H (1.3-7.7) k/uL Lymphocytes # 0.8 L (1.0-4.8) k/uL Monocytes # 0.8 (0-1.0) k/uL Eosinophils # 0.1 (0-0.7) k/uL Basophils # 0.1 (0-0.2) k/uL Sodium 138 (137-145) mmol/L Potassium 4.2 (3.5-5.1) mmol/L Chloride 103 (98-107) mmol/L Carbon Dioxide 26 (22-30) mmol/L Anion Gap 9 mmol/L BUN 15 (7-17) mg/dL Creatinine 0.82 (0.52-1.04) mg/dL Est GFR (CKD-EPI)AfAm 83 (>60 ml/min/1.73 sqM) Est GFR (CKD-EPI)NonAf 72 (>60 ml/min/1.73 sqM) Glucose 144 H (74-99) mg/dL Calcium 10.7 H (8.4-10.2) mg/dL Total Bilirubin 0.9 (0.2-1.3) mg/dL AST 23 (14-36) U/L ALT 20 (4-34) U/L Alkaline Phosphatase 75 (38-126) U/L Troponin I <0.012 (0.000-0.034) ng/mL NT-Pro-B Natriuret Pep 101 pg/mL Total Protein 7.2 (6.3-8.2) g/dL Albumin 4.4 (3.5-5.0) g/dL Lipase 208 (23-300) U/L Disposition Clinical Impression: Syncope Disposition: HOME SELF-CARE Condition: Good Instructions (If sedation given, give patient instructions): Acute Diarrhea (ED) Is patient prescribed a controlled substance at d/c from ED?: No Referrals: Leslie Estrada MD [Primary Care Provider] - 1-2 days Time of Disposition: 03:26
[2023-08-17] MEDS: SODIUM CHLORIDE 0.9% 1,000 ML IV STA (00:42)
[2023-08-17 01:01] LABS: Basophils # (A) 0.1 k/uL (0-0.2); Basophils % (A) 0 %; Eosinophils # (A) 0.1 k/uL (0-0.7); Eosinophils % (A) 1 %; HCT 44.3 % (34.0-46.0); HGB 14.4 gm/dL (11.4-16.0); Lymphocytes # (A) 0.8 k/uL (1.0-4.8); Lymphocytes % (A) 5 %; MCH 28.9 pg (25.0-35.0); MCHC 32.5 g/dL (31.0-37.0); Mean Platelet Volume 7.9; Monocytes # (A) 0.8 k/uL (0-1.0); Monocytes % (A) 5 %; Neutrophils # (A) 13.5 k/uL (1.3-7.7); Neutrophils % (A) 88 %; Platelet Count 285 k/uL (150-450); RBC 4.98 m/uL (3.80-5.40); RDW 12.5 % (11.5-15.5); WBC 15.4 k/uL (3.8-10.6)
[2023-08-17 01:17] LABS: ALT 20 U/L (4-34); AST 23 U/L (14-36); African American GFR (CKD) 83 (>60 ml/min/1.73 sqM); Albumin 4.4 g/dL (3.5-5.0); Alkaline Phosphatase 75 U/L (38-126); Anion Gap 9 mmol/L; Blood Urea Nitrogen 15 mg/dL (7-17); Calcium 10.7 mg/dL (8.4-10.2); Carbon Dioxide 26 mmol/L (22-30); Chloride 103 mmol/L (98-107); Glucose 144 mg/dL (74-99); Lipase 208 U/L (23-300); Non-African American GFR(CKD) 72 (>60 ml/min/1.73 sqM); Potassium 4.2 mmol/L (3.5-5.1); Sodium 138 mmol/L (137-145); Total Bilirubin 0.9 mg/dL (0.2-1.3); Total Protein 7.2 g/dL (6.3-8.2)
[2023-08-17 01:23] LABS: NT-Pro-B-Type Natriuretic Pept 101 pg/mL
--- NOTE | 2023-08-17 02:39 | CT ---
EXAM: CT Head Without Intravenous Contrast CLINICAL HISTORY: ITS.REASON CT Reason: fall TECHNIQUE: Axial computed tomography images of the head/brain without intravenous contrast. CTDI is 45.3 mGy and DLP is 1004 mGy-cm. This CT exam was performed using one or more of the following dose reduction techniques: automated exposure control, adjustment of the mA and/or kV according to patient size, and/or use of iterative reconstruction technique. COMPARISON: No relevant prior studies available. FINDINGS: Brain: No hemorrhage or mass effect. Ventricles: No hydrocephalus. Bones/joints: Unremarkable. Soft tissues: Unremarkable. Sinuses: No air fluid level. Mastoid air cells: Clear. IMPRESSION: No acute hemorrhage, hydrocephalus, or mass effect. EXAM: CT Cervical Spine Without Intravenous Contrast CLINICAL HISTORY: ITS.REASON CT Reason: fall TECHNIQUE: Axial computed tomography images of the cervical spine without intravenous contrast. CTDI is 10.5 mGy and DLP is 305.1 mGy-cm. This CT exam was performed using one or more of the following dose reduction techniques: automated exposure control, adjustment of the mA and/or kV according to patient size, and/or use of iterative reconstruction technique. COMPARISON: No relevant prior studies available. FINDINGS: Vertebrae: No acute fracture. Discs/spinal canal/neural foramina: degenerative changes. Soft tissues: No prevertebral swelling. 3.5 cm right thyroid gland mass. Recommend ultrasound. IMPRESSION: No acute fracture or subluxation. 3.5 cm right thyroid gland mass. Recommend ultrasound.
--- NOTE | 2023-08-17 02:39 | XR ---
EXAM: XR Chest, 2 Views CLINICAL HISTORY: ITS.REASON XR Reason: dypsnea TECHNIQUE: Frontal and lateral views of the chest. COMPARISON: No relevant prior studies available. FINDINGS: Lungs: No consolidation or mass. Pleural space: No effusion. Heart: No cardiomegaly. Bones/joints: No acute findings. IMPRESSION: No acute cardiopulmonary process.
[2023-08-17 03:04] VITALS: PULSE 74
[2023-08-17 03:43] VITALS: BP 111/69; RESP 16
== END 2023-08-17 03:40 | disposition home or self-care (01) ==
LOC: EC 22:23
DX: R55 Syncope and collapse (principal); Z91.030 Bee allergy status; Z87.891 Personal history of nicotine dependence
CPT/HCPCS: 36415; 70450; 71046; 72125; 80053; 83690; 83880; 84484; 85025; 96360; 99284

== ENCOUNTER → 2023-08-21 | Outpatient (CLI) | payer MEDICARE, OTHER ==
--- NOTE | 2023-08-21 11:54 | P.PN ---
Subjective Progress Note Date: 08/21/23 Subjective Progress Note Date: 08-21-23 Principal diagnosis: left breast invasive ductal cancer; second primary first in 2002 Courtney is a 73 year old white female seen in consultation for DR. Petit regarding a recurrent left breast cancer, diagnosed innitially in 2002. This was a T2 N1 M0 ER FL negative HER-2 positive. She was treated with A C 4 and radiation therapy to the left breast. She underwent a screening mammogram on . This revealed some concern with calcifications in the left breast. On [id number] left breast diagnostic mammogram was performed which confirmed the calcifications of concern in the left breast. Stereotactic core biopsy was then performed on [id number]. Pathology from this revealed multifocal microinvasive moderately differentiated ductal carcinoma arising in the background of high- grade DCIS. She underwent an ultrasound of the left axilla at [facility] on [id number] which was negative. The patient did not feel any new lumps masses or nodules of concern in either breast. She gets mammograms routinely in this was a new finding since the year prior. She was not complaining of any recent trauma or infection of the breast. She was not complaining of any nipple discharge or skin changes. She underwent a left mastectomy on . 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 All margins were negative. The tumor 9 mm and no rigoberto tissue was removed. The patient was seen in consultation by Dr. Hutson on . At that time it was recommended that an Oncotype be performed. He also discussed with her radiation therapy which was not recommended. In additionally he discuss genetic testing which was done. She is on Arimidex, she is tolerating this without difficulty. She was not recommended to have chemotherapy this time. She is not complaining of any new lumps masses or nodules of concern in the right breast. No changes on the left chest wall. She continues on the arimidex. Right breast mammgram on 02-20-23 BIRAD 2. She is not complaining of any lumps masses or nodules on her left chest wall or in her right breast. She did have shingles and was seen in the emergency room several times since her last visit. She is presently taking gabapentin which controls the discomfort as well as 10 mg [place] twice daily. Caffeine: 2 cups coffee/ several times a week nicotine: none; stopped 35 years ago; used to smoke 1/2 PPD chocolate: daily BCP: none hormones: none Family History: maternal aunt: breast cancer Hormonal History: meanrche: 14 , age at : 37; breast fed: no menopause: 51 Surgical History: Cholecystectomy Colon resection; perforated diverticulitis Left breast lumpectomy and sentinel node possibly axillary node dissection Colostomy reversal Right breast biopsy in the operating room several times left mastectomy Medical History: glaucoma AFIB off blood thinners high cholesterol shingles Social History: nicotine: as above alcohol: with dinner; several times a week drugs: none - Constitutional Constitutional: Denies chills, Denies fever - EENT Eyes: bilateral as per HPI Ears: bilateral: tinnitus, deny: decreased hearing Ears, nose, mouth and throat: Denies headache, Denies sore throat - Breasts Breasts: bilateral: as per HPI - Cardiovascular Cardiovascular: Reports as per HPI - Respiratory Respiratory: Denies cough - Gastrointestinal Gastrointestinal: Reports as per HPI, Reports constipation, Reports diarrhea - Genitourinary (Female) Genitourinary: Denies dysuria, Denies hematuria - Menstruation Menstruation: Reports postmenopausal - Musculoskeletal Comment: heel spur Musculoskeletal: Reports myalgias - Integumentary Integumentary: Denies pruritus, Denies rash - Neurological Neurological: Denies numbness, Denies weakness - Psychiatric Psychiatric: Denies anxiety, Denies depression - Endocrine Endocrine: Denies fatigue, Denies weight change - Hematologic/Lymphatic Comment: none - Allergic/Immunologic Allergic/Immunologic: Reports as per HPI Past Medical History Past Medical History: Atrial Fibrillation, Cancer, Hyperlipidemia Additional Past Medical History / Comment(s): Do Not Use Left Arm for IV or BP- left breast CA with lumpectomy, radiation and chemo 2002. 09/11/19 Diverticulitis w/ perforation, colostomy; developed AFib w/ RVR, pulmonary edema post-op. History of Any Multi-Drug Resistant Organisms: None Reported Past Surgical History: Bowel Resection, Breast Surgery, Cholecystectomy, Tonsillectomy Additional Past Surgical History / Comment(s): L breast lumpectomy 2002. Gomez proc w/ Colostomy 09/11/19, REVERSAL OF COLOSTOMY, COLONOSCOPY Past Anesthesia/Blood Transfusion Reactions: Motion Sickness Additional Past Anesthesia/Blood Transfusion Reaction / Comment(s): Pt has never received blood. Past Psychological History: No Psychological Hx Reported Additional Psychological History / Comment(s): Pt resides with her spouse of 33 yrs. She is independent. She uses no assistive device. She drives. Smoking Status: Former smoker Past Alcohol Use History: Occasional Additional Past Alcohol Use History / Comment(s): Pt states she started smoking in 1969 and quit in 1990. Pt has 1-2 glasses of wine/beer almost daily. Past Drug Use History: None Reported - Past Family History Father Family Medical History: Myocardial Infarction (NE) Additional Family Medical History / Comment(s): Father had a NE in his 60's. He from a post op hip infection at age 73 yrs. no gallbladder disease Mother Family Medical History: Eye Disorder, Hypertension Additional Family Medical History / Comment(s): Mother had glaucoma. She at age 82 yrs. Medications and Allergies Home Medications Medication Instructions Recorded Confirmed Type Simvastatin [Zocor] 20 mg PO HS 07/01/19 03/26/22 History Cyanocobalamin (Vitamin B-12) 1,000 mcg PO DAILY 01/24/20 03/26/22 History [Vitamin B-12] Metoprolol Tartrate [Lopressor] 25 mg PO BID 01/24/20 03/26/22 History Multivitamins, Thera [Multivitamin 1 tab PO WINN 01/24/20 03/26/22 History (formulary)] Allergies Allergy/AdvReac Type Severity Reaction Status Date / Time bee venom protein (honey bee) Allergy Anaphylaxis Verified 03/26/22 08:45 Objective - Vital Signs Vital signs: Intake & Output 08/20/23 08/21/23 08/21/23 18:59 06:59 18:59 Weight 67.132 kg - Constitutional General appearance: Present: cooperative - EENT Eyes: Present: EOMI - Neck Neck: Present: normal ROM - Respiratory Respiratory: bilateral: CTA - Cardiovascular Rhythm: regular Heart sounds: normal: S1, S2 - Integumentary Integumentary: Present: normal turgor - Musculoskeletal Musculoskeletal: Present: gait normal - Psychiatric Psychiatric: Present: A&O x's 3, appropriate affect, intact judgment & insight - Additional findings Additional findings: Breast Exam: Bra: 38C Inspection: Right breast grade 2/3 ptosis, left chest wall no evidence of recurrence Palpation: Right breast: Multi-positional exam no dominant masses or nodules of concern right Axilla: No adenopathy of concern Left chest wall: No evidence of recurrent disease Left axilla: No adenopathy of concern Assessment and Plan Assessment: Impression: Patient status post left mastectomy for a new left breast invasive ductal carcinoma Patient presently on arimidex Fungal infection under right breast resolved Plan: right breast mammogram 02-21-24 and follow up after this is done Continue arimidex Nystatin under right breast as needed Follow-up 6 months Cc: Dr. Estrada
[2023-08-21 12:11] VITALS: BP 122/75; PULSE 51; RESP 16; TEMP 98.1
== END ==
LOC: WWCWWP 11:00
PROVIDERS: ATTEND Surgery
DX: R92.1 Mammographic calcification found on diagnostic imaging of breast (principal); C50.912 Malignant neoplasm of unspecified site of left female breast; Z90.12 Acquired absence of left breast and nipple; Z87.891 Personal history of nicotine dependence; Z80.3 Family history of malignant neoplasm of breast; Z91.030 Bee allergy status; Z79.811 Long term (current) use of aromatase inhibitors; Z17.1 Estrogen receptor negative status [ER-]

== ENCOUNTER → 2024-02-22 | Outpatient (CLI) | payer MEDICARE, OTHER ==
--- NOTE | 2024-02-22 10:23 | MM ---
Reason for Exam: Hx of breast cancer, conservation therapy. Last screening mammogram was performed 12 month(s) ago. Patient History: Menarche at age 14. First Full-Term at age 36. Late child-bearing (after 30). Postmenopausal. Breast cancer, left, age 52. Breast cancer, left, age 71. 05/15/2022, Mastectomy on the Left side. 02/27/2022, Malignant MG stereo VAD BX LT on the left side. Lumpectomy on the Left side. Core Biopsy on the Left side. Excisional Biopsy on the Right side. Excisional Biopsy on the Right side. Excisional Biopsy on the Right side. Excisional Biopsy on the Right side. 08/18/2003, Benign Ultrasound-Guided Core Biopsy on the right side. 08/05/2002, Malignant Stereotactic Core Biopsy on the left side. Radiation Therapy, left. Chemotherapy. Maternal aunt had breast cancer. Prior Study Comparison: 02/06/2022 Bilateral MG 3D screening mammo w/cad, [facility]. 02/17/2022 Left MG 3D work up w/cad LT, [facility]. 02/20/2023 Right MG 3D diag mammo w/cad RT, [facility]. Tissue Density: Right: The breasts are heterogeneously dense, which may obscure small masses. Findings: Analyzed By CAD. 1.2 cm nodularity anterior right breast approximately 8:00 position appears more defined/new. Further evaluation recommended with ultrasound. Chronic nodularity posterior upper outer quadrant likely small intramammary lymph nodes. Some dystrophic calcifications medial posterior right breast is unchanged. Overall Assessment: Incomplete: need additional imaging evaluation, BI-RAD 0 Management: Diagnostic Breast Ultrasound of the right breast. [facility], , 02/22/2024 10:19 AM. Electronically signed and approved by: Toby Pandya M.D. Radiologist
--- NOTE | 2024-02-22 10:51 | USB ---
Reason for Exam: Additional evaluation requested from prior study. Patient History: Menarche at age 14. First Full-Term at age 36. Late child-bearing (after 30). Postmenopausal. Breast cancer, left, age 52. Breast cancer, left, age 71. 05/15/2022, Mastectomy on the Left side. 02/27/2022, Malignant MG stereo VAD BX LT on the left side. Lumpectomy on the Left side. Core Biopsy on the Left side. Excisional Biopsy on the Right side. Excisional Biopsy on the Right side. Excisional Biopsy on the Right side. Excisional Biopsy on the Right side. 08/18/2003, Benign Ultrasound-Guided Core Biopsy on the right side. 08/05/2002, Malignant Stereotactic Core Biopsy on the left side. Radiation Therapy, left. Chemotherapy. Maternal aunt had breast cancer. Technique: Method: Whole Breast Handheld. Doppler: Color. Patient Position: Supine. Prior Study Comparison: 02/06/2022 Bilateral MG 3D screening mammo w/cad, [facility]. 02/17/2022 Left MG 3D work up w/cad LT, [facility]. 02/20/2023 Right MG 3D diag mammo w/cad RT, [facility]. Findings: The whole breast of the right breast, the periareolar of the right breast, the axilla of the right breast and the retroareolar of the right breast were scanned. A complete US of all four quadrants of the breast, axilla, and retro-areolar region were reviewed. At the 8:00 position, 1 cm from the nipple, there is possible enlarged intramammary lymph node measuring 9 mm, sonographic correlate. Tissue sampling recommended. At the 12:00 position, 4 cm from the nipple, there is a vague hypoechoic area measuring 6 mm for which tissue sampling is recommended. At the 9:00 position, 4 cm from the nipple, there is a hypoechoic area measures 9 x 5 x 5 mm. Recess of follow-up, possible prominent fat lobule. Prominent lymph node in the right axilla showing mild cortical thickening up to 7 mm. The node itself is borderline enlarged measuring 3.0 x 1.2 cm. Tissue sampling recommended. Overall Assessment: Suspicious, BI-RAD 4 Management: Ultrasound Core Biopsy of the right breast. Electronically signed and approved by: Toby Pandya M.D. Radiologist
== END | disposition home or self-care (01) ==
LOC: RADMAMWWP 09:28
PROVIDERS: ATTEND Surgery
CPT/HCPCS: 77061; 77065

== ENCOUNTER → 2024-03-09 | Day surgery (SDC) | payer MEDICARE, OTHER ==
--- NOTE | 2024-03-17 10:35 | MM ---
Reason for Exam: Post Procedure Mammogram. Last screening mammogram was performed less than 1 month ago. Patient History: Menarche at age 14. First Full-Term at age 36. Late child-bearing (after 30). Postmenopausal. Breast cancer, left, age 52. Breast cancer, left, age 71. 05/15/2022, Mastectomy on the Left side. 02/27/2022, Malignant MG stereo VAD BX LT on the left side. Lumpectomy on the Left side. Core Biopsy on the Left side. Excisional Biopsy on the Right side. Excisional Biopsy on the Right side. Excisional Biopsy on the Right side. Excisional Biopsy on the Right side. 08/18/2003, Benign Ultrasound-Guided Core Biopsy on the right side. 08/05/2002, Malignant Stereotactic Core Biopsy on the left side. Radiation Therapy, left. Chemotherapy. Maternal aunt had breast cancer. Prior Study Comparison: 02/17/2022 Left MG 3D work up w/cad LT, [facility]. 02/20/2023 Right MG 3D diag mammo w/cad RT, [facility]. 02/22/2024 Right MG 3D diag mammo w/cad RT, [facility]. Tissue Density: Right: The breasts are heterogeneously dense, which may obscure small masses. Pathology Description: Location: 12 o'clock. Marker Left Behind. Needle Type: Mammotome Cores: 5 Skin Nicks: 1 The procedure of ultrasound guided core biopsy was explained to the patient. Benefits, alternatives, and risks were discussed. An informed consent was then obtained. A timeout was performed. The patient was placed in supine positioning for imaging and for the procedure. The overlying skin was prepped and draped in usual sterile fashion. Lidocaine was used as anesthetic into the skin and subcutaneous tissue up to area of concern in the right breast. A small skin norma was made with surgical scalpel. Under ultrasound guidance, a 12-gauge vacuum assisted biopsy gun device was used to obtain 3 core samples at the 8:00 position. A biopsy clip was left in lesion. Hydromark butterfly core marker was placed. Sample container was labeled and transferred to pathology for additional evaluation. Under ultrasound guidance, a 12-gauge vacuum assisted biopsy gun device was used to obtain 9 core samples at the 12:00 position. A biopsy clip was left in lesion. Hydromark coil core marker was placed. The first 4 samples did not appear to be obtained with the device. The device was exchanged and the final 5 samples appeared adequate and satisfactory. Both sampling containers from the site were transferred to pathology for additional evaluation. This area may be a lobe of breast tissue. If sample returns normal breast tissue at this site, this may be concordant and short-term follow-up could be performed. The patient tolerated the procedure well without any immediate complication. The patient was kept in the radiology department for short stay after the procedure and then discharged home in stable condition. Postprocedure mammogram: The patient was transferred to mammography for physician ordered post procedure mammogram for clip placement verification. Post procedure mammogram demonstrates the clips in appropriate placement. Impression: Successful ultrasound guided core biopsy of 2 areas of concern in the right breast, full pathology results to follow. Recommendations: 1. Recommendations are pending pathology results. [facility], , 03/09/2024 9:44 AM. Pathology Results: Results pending. Pathology Description: Location: 8 o'clock. Needle Type: Mammotome Cores: 3 Skin Nicks: 1 The procedure of ultrasound guided core biopsy was explained to the patient. Benefits, alternatives, and risks were discussed. An informed consent was then obtained. A timeout was performed. The patient was placed in supine positioning for imaging and for the procedure. The overlying skin was prepped and draped in usual sterile fashion. Lidocaine was used as anesthetic into the skin and subcutaneous tissue up to area of concern in the right breast. A small skin norma was made with surgical scalpel. Under ultrasound guidance, a 12-gauge vacuum assisted biopsy gun device was used to obtain 3 core samples at the 8:00 position. A biopsy clip was left in lesion. Hydromark butterfly core marker was placed. Sample container was labeled and transferred to pathology for additional evaluation. Under ultrasound guidance, a 12-gauge vacuum assisted biopsy gun device was used to obtain 9 core samples at the 12:00 position. A biopsy clip was left in lesion. Hydromark coil core marker was placed. The first 4 samples did not appear to be obtained with the device. The device was exchanged and the final 5 samples appeared adequate and satisfactory. Both sampling containers from the site were transferred to pathology for additional evaluation. This area may be a lobe of breast tissue. If sample returns normal breast tissue at this site, this may be concordant and short-term follow-up could be performed. The patient tolerated the procedure well without any immediate complication. The patient was kept in the radiology department for short stay after the procedure and then discharged home in stable condition. Postprocedure mammogram: The patient was transferred to mammography for physician ordered post procedure mammogram for clip placement verification. Post procedure mammogram demonstrates the clips in appropriate placement. Impression: Successful ultrasound guided core biopsy of 2 areas of concern in the right breast, full pathology results to follow. Recommendations: 1. Recommendations are pending pathology results. [facility], , 03/09/2024 9:43 AM The procedure of ultrasound guided core biopsy was explained to the patient. Benefits, alternatives, and risks were discussed. An informed consent was then obtained. A timeout was performed. The patient was placed in supine positioning for imaging and for the procedure. The overlying skin was prepped and draped in usual sterile fashion. Lidocaine was used as anesthetic into the skin and subcutaneous tissue up to area of concern in the right breast. A small skin norma was made with surgical scalpel. Under ultrasound guidance, a 12-gauge vacuum assisted biopsy gun device was used to obtain 3 core samples at the 8:00 position. A biopsy clip was left in lesion. Hydromark butterfly core marker was placed. Sample container was labeled and transferred to pathology for additional evaluation. Under ultrasound guidance, a 12-gauge vacuum assisted biopsy gun device was used to obtain 9 core samples at the 12:00 position. A biopsy clip was left in lesion. Hydromark coil core marker was placed. The first 4 samples did not appear to be obtained with the device. The device was exchanged and the final 5 samples appeared adequate and satisfactory. Both sampling containers from the site were transferred to pathology for additional evaluation. This area may be a lobe of breast tissue. If sample returns normal breast tissue at this site, this may be concordant and short-term follow-up could be performed. The patient tolerated the procedure well without any immediate complication. The patient was kept in the radiology department for short stay after the procedure and then discharged home in stable condition. Postprocedure mammogram: The patient was transferred to mammography for physician ordered post procedure mammogram for clip placement verification. Post procedure mammogram demonstrates the clips in appropriate placement. Impression: Successful ultrasound guided core biopsy of 2 areas of concern in the right breast, full pathology results to follow. Recommendations: 1. Recommendations are pending pathology results. [facility], , 03/09/2024 9:44 AM. Pathology Results: Result: Malignant. Pathology and radiology were reviewed. Findings are concordant. A. RIGHT BREAST, TWELVE O'CLOCK, ULTRASOUND GUIDED NEEDLE CORE BIOPSY: Sclerotic fibroadenoma. B. RIGHT BREAST, EIGHT O'CLOCK, ULTRASOUND GUIDED NEEDLE CORE BIOPSY: Lymph node with isolated carcinoma tumor cells present (see note). Final characterization pending additional immunostains with an addendum report to follow with stain results. Notes In order to confirm the diagnosis for specimen B, immunostains are performed with appropriately reactive controls on block B1. CK7 and MARY stains are both positive within rare subcapsular isolated tumor cells within the lymph node specimen in block B1. Given the ultrasound findings of a possible enlarged intramammary lymph node at the right breast 8:00 position, the findings seen are compatible with isolated tumor cells of metastatic carcinoma to a lymph node. Additional immunostaining with BUTCH-3, ER (for diagnostic purposes) and E-cadherin are pending, and an addendum report will follow with these stain results. Intradepartmental consultation with Dr. Benjamin Tijerina is in agreement with the assessments for specimens A and B. Imaging correlation is suggested, as indicated. Overall Assessment: Malignant Assessment: MG diagnostic mammo RT wo CAD - Right: Known biopsy proven malignancy, BI-RAD 6. Management: Surgical Consultation of the right breast. Electronically signed and approved by: Colton Whyte D.O. Radiologis
== END ==
LOC: RADUSWWP 07:42
PROVIDERS: ATTEND Surgery
DX: C50.911 Malignant neoplasm of unspecified site of right female breast (principal); R92.8 Other abnormal and inconclusive findings on diagnostic imaging of breast; Z78.0 Asymptomatic menopausal state; Z80.3 Family history of malignant neoplasm of breast
CPT/HCPCS: 88305; 88342; 88341; 77065; 19083; 19084; A4648

== ENCOUNTER → 2024-03-18 | Outpatient (CLI) | payer MEDICARE, OTHER ==
[2024-03-18 09:29] VITALS: BP 104/70; PULSE 92; RESP 17; TEMP 97.9
--- NOTE | 2024-03-18 09:56 | P.PN ---
Subjective Progress Note Date: 03/18/24 Principal diagnosis: right breast 8:00 lymph node with isolated tumor cells/radha edwards at 12:00 fibroadenoma, 08-21-23 Principal diagnosis: left breast invasive ductal cancer; second primary first in 2002 Courtney is a 73 year old white female seen in consultation for DR. Petit regarding a recurrent left breast cancer, diagnosed innitially in 2002. This was a T2 N1 M0 ER NC negative HER-2 positive. She was treated with A C 4 and radiation therapy to the left breast. She underwent a screening mammogram on . This revealed some concern with calcifications in the left breast. On [id number] left breast diagnostic mammogram was performed which confirmed the calcifications of concern in the left breast. Stereotactic core biopsy was then performed on [id number]. Pathology from this revealed multifocal microinvasive moderately differentiated ductal carcinoma arising in the background of high- grade DCIS. She underwent an ultrasound of the left axilla at [facility] on [id number] which was negative. The patient did not feel any new lumps masses or nodules of concern in either breast. She gets mammograms routinely in this was a new finding since the year prior. She was not complaining of any recent traum a or infection of the breast. She was not complaining of any nipple discharge or skin changes. She underwent a left mastectomy on . 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 All margins were negative. The tumor 9 mm and no rigoberto tissue was removed. The patient was seen in consultation by Dr. Hutson on . At that time it was recommended that an Oncotype be performed. He also discussed with her radiation therapy which was not recommended. In additionally he discuss genetic testing which was done. She is on Arimidex, she is tolerating this without difficulty. She was not recommended to have chemotherapy this time. She is not complaining of any new lumps masses or nodules of concern in the right breast. No changes on the left chest wall. She continues on the arimidex. Right breast mammogram on 02-20-23 BIRAD 2. She is not complaining of any lumps masses or nodules on her left chest wall or in her right breast. She did have shingles and was seen in the emergency room several times since her last visit. She is presently taking gabapentin which controls the discomfort as well as 10 mg Ash[place] twice daily. 03-18-24 left breast invasive ductal cancer; second primary first in 2002 She underwent a left mastectomy on . 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 All margins were negative. The tumor 9 mm and no rigoberto tissue was removed. The patient was seen in consultation by Dr. Hutson on . At that time it was recommended that an Oncotype be performed. He also discussed with her radiation therapy which was not recommended. In additionally he discuss genetic testing which was done. She is on Arimidex, she is tolerating this without difficulty. She was not recommended to have chemotherapy this time. She is not complaining of any new lumps masses or nodules of concern in the right breast. No changes on the left chest wall. She continues on the arimidex. Right breast mammogram on 02-20-23 BIRAD 2. She is not complaining of any lumps masses or nodules on her left chest wall or in her right breast. She did have shingles and was seen in the emergency room several times since her last visit. She is presently taking gabapentin which controls the discomfort as well as 10 mg Ashaway twice daily. She had a right breast mammogram on 02-22-24 BIRAD 0 which led to a right breast ultrasound 02-22-24 BIRAD 4 biopsy of two sites recommended; Biopsy done on 03-09-24 Rated the biopsy without difficulty however she developed ecchymosis at the site. Prior to the biopsy had not noted any lumps masses or nodules of concern in the right breast or on the left chest wall. 12: andreas fibroadenoma 8:00 node with isolated tumor cell; buterfly clip node not biopsied yet but recommended to biopsy 9 oclock recommend follow up Caffeine: 2 cups coffee/ several times a week nicotine: none; stopped 35 years ago; used to smoke 1/2 PPD chocolate: daily BCP: none hormones: none Family History: maternal aunt: breast cancer Hormonal History: meanrche: 14 , age at : 37; breast fed: no menopause: 51 Surgical History: Cholecystectomy Colon resection; perforated diverticulitis Left breast lumpectomy and sentinel node possibly axillary node dissection Colostomy reversal Right breast biopsy in the operating room several times left mastectomy Medical History: glaucoma AFIB off blood thinners high cholesterol shingles Social History: nicotine: as above alcohol: with dinner; several times a week drugs: none - Constitutional Constitutional: Denies chills, Denies fever - EENT Eyes: bilateral as per HPI Ears: bilateral: tinnitus, deny: decreased hearing Ears, nose, mouth and throat: Denies headache, Denies sore throat - Breasts Breasts: bilateral: as per HPI - Cardiovascular Cardiovascular: Reports as per HPI - Respiratory Respiratory: Denies cough - Gastrointestinal Gastrointestinal: Reports as per HPI, Reports constipation, Reports diarrhea - Genitourinary (Female) Genitourinary: Denies dysuria, Denies hematuria - Menstruation Menstruation: Reports postmenopausal - Musculoskeletal Comment: heel spur Musculoskeletal: Reports myalgias - Integumentary Integumentary: Denies pruritus, Denies rash - Neurological Neurological: Denies numbness, Denies weakness - Psychiatric Psychiatric: Denies anxiety, Denies depression - Endocrine Endocrine: Denies fatigue, Denies weight change - Hematologic/Lymphatic Comment: none - Allergic/Immunologic Allergic/Immunologic: Reports as per HPI Past Medical History Past Medical History: Atrial Fibrillation, Cancer, Hyperlipidemia Additional Past Medical History / Comment(s): Do Not Use Left Arm for IV or BP- left breast CA with lumpectomy, radiation and chemo 2002. 09/11/19 Diverticulitis w/ perforation, colostomy; developed AFib w/ RVR, pulmonary edema post-op. History of Any Multi-Drug Resistant Organisms: None Reported Past Surgical History: Bowel Resection, Breast Surgery, Cholecystectomy, Tonsillectomy Additional Past Surgical History / Comment(s): L breast lumpectomy 2002. Gomez proc w/ Colostomy 09/11/19, REVERSAL OF COLOSTOMY, COLONOSCOPY Past Anesthesia/Blood Transfusion Reactions: Motion Sickness Additional Past Anesthesia/Blood Transfusion Reaction / Comment(s): Pt has never received blood. Past Psychological History: No Psychological Hx Reported Additional Psychological History / Comment(s): Pt resides with her spouse of 33 yrs. She is independent. She uses no assistive device. She drives. Smoking Status: Former smoker Past Alcohol Use History: Occasional Additional Past Alcohol Use History / Comment(s): Pt states she started smoking in 1969 and quit in 1990. Pt has 1-2 glasses of wine/beer almost daily. Past Drug Use History: None Reported - Past Family History Father Family Medical History: Myocardial Infarction (TN) Additional Family Medical History / Comment(s): Father had a TN in his 60's. He from a post op hip infection at age 73 yrs. no gallbladder disease Mother Family Medical History: Eye Disorder, Hypertension Additional Family Medical History / Comment(s): Mother had glaucoma. She at age 82 yrs. Medications and Allergies Home Medications Medication Instructions Recorded Confirmed Type Simvastatin [Zocor] 20 mg PO HS 07/01/19 03/26/22 History Cyanocobalamin (Vitamin B-12) 1,000 mcg PO DAILY 01/24/20 03/26/22 History [Vitamin B-12] Metoprolol Tartrate [Lopressor] 25 mg PO BID 01/24/20 03/26/22 History Multivitamins, Thera [Multivitamin 1 tab PO WINN 01/24/20 03/26/22 History (formulary)] Allergies Allergy/AdvReac Type Severity Reaction Status Date / Time bee venom protein (honey bee) Allergy Anaphylaxis Verified 03/26/22 08:45 Objective - Vital Signs Vital signs: Vital Signs Temp 97.9 F 03/18/24 09:25 Pulse 92 03/18/24 09:25 Resp 17 03/18/24 09:25 BP 104/70 03/18/24 09:25 Pulse Ox 96 03/18/24 09:25 FiO2 Intake & Output 03/17/24 03/18/24 03/18/24 18:59 06:59 18:59 Weight 69.853 kg - Constitutional General appearance: Present: cooperative - EENT Eyes: Present: EOMI ENT: Present: hearing grossly normal - Neck Neck: Present: normal ROM - Respiratory Respiratory: bilateral: CTA - Cardiovascular Rhythm: regular Heart sounds: normal: S1, S2 - Integumentary Integumentary: Present: normal turgor - Musculoskeletal Musculoskeletal: Present: gait normal - Psychiatric Psychiatric: Present: A&O x's 3, appropriate affect, intact judgment & insight - Additional findings Additional findings: Breast Exam: Bra: 38C Inspection: Right breast grade 2/3 ptosis, left chest wall no evidence of recurrence Palpation: Right breast: Multi-positional exam no dominant masses or nodules of concern; ecchymosis at biopsy site no evidence of hematoma or infection right Axilla: No adenopathy of concern Left chest wall: No evidence of recurrent disease Left axilla: No adenopathy of concern fungal infection under right breast Assessment and Plan Assessment: Impression: Patient status post left mastectomy for a second left breast invasive ductal carcinoma Patient presently on arimidex Fungal infection under right breast Abnormal right breast mammogram/ultrasound leading to core biopsy on 03-09-2024 12 o'clock position fibroadenoma coil clip 8 o'clock position lymph node with isolated tumor cells butterfly clip Recommendation for ultrasound-guided biopsy of enlarged lymph node right axilla Plan: ultrasound guided biopsy lymph node right axilla Presentation of case at tumor board Follow-up after ultrasound-guided biopsy lymph node right axilla Continue arimidex Nystatin under right breast as needed Cc: Dr. Estrada
== END ==
LOC: WWCWWP 08:40
PROVIDERS: ATTEND Surgery
DX: R92.8 Other abnormal and inconclusive findings on diagnostic imaging of breast (principal); D24.1 Benign neoplasm of right breast; Z85.3 Personal history of malignant neoplasm of breast; Z80.3 Family history of malignant neoplasm of breast; Z90.12 Acquired absence of left breast and nipple; B48.8 Other specified mycoses; Z87.891 Personal history of nicotine dependence; Z91.030 Bee allergy status

== ENCOUNTER → 2024-03-24 | Day surgery (SDC) | payer MEDICARE, OTHER ==
--- NOTE | 2024-04-04 13:46 | USB ---
Prior Study Comparison: 02/20/2023 Right MG 3D diag mammo w/cad RT, [facility]. 02/22/2024 Right MG 3D diag mammo w/cad RT, [facility]. 03/09/2024 Right MG diagnostic mammo RT wo CAD, [facility]. Pathology Description: Location: axilla. Marker Left Behind. Needle Type: Celero Cores: 3 Gauge: 12 The procedure of ultrasound guided core biopsy was explained to the patient. Benefits, alternatives, and risks were discussed. An informed consent was then obtained. The patient was placed in supine positioning for imaging and for the procedure. The overlying skin was prepped and draped in usual sterile fashion. Lidocaine buffered with bicarbonate was used as anesthetic into the skin and subcutaneous tissue up to area of concern in the enlarged right axillary lymph node. A norma was made with surgical scalpel. Under ultrasound guidance, a 12-gauge vacuum assisted biopsy gun device was used to obtain 3 core samples. Following this, a biopsy clip was left in lesion. The patient tolerated the procedure well without any immediate complication. The patient was kept in the radiology department for short stay after the procedure and then discharged home in stable condition. Postprocedure mammogram: The patient was transferred to mammography for physician ordered post procedure mammogram for clip placement verification. Post procedure mammogram demonstrates the clip in appropriate placement. Impression: Successful, uncomplicated ultrasound guided core biopsy of area of concern in the enlarged right axillary lymph node. Full pathology results to follow. [facility], , 03/24/2024 2:32 PM. Pathology Results: Result: Malignant. Pathology and radiology were reviewed. Findings are concordant. RIGHT AXILLA, CORE BIOPSY: Brayden tissue involved by macrometastatic mammary ductal carcinoma (see note). Notes The patient's stated history of a prior left mastectomy on case [id number] showing Grade 2 invasive ductal carcinoma with lymphovascular invasion is noted. The patient also has a prior right breast 8:00 area biopsy on case [id number] which shows isolated carcinoma tumor cells. The current case shows metastatic tumor with background lymphoid tissue showing reactive germinal centers. Tumor morphology within the current case is similar to the prior cases. Metastatic tumor measures up to approximately 8 mm in greatest microscopic dimension within one of the core fragments. In order to confirm the diagnosis, immunostains are performed with appropriate controls on the tissue block. CK7, BUTCH-3, and E-cadherin stains are all positive within metastatic tumor cells which supports a mammary ductal primary. Intradepartmental consultation with Dr. Benjamin Tijerina is in agreement with the assessment of malignancy. Clinical correlation with imaging studies is suggested in order to further assess for a possible right ipsilateral lesion. Metastatic carcinoma from the contralateral left breast would be a very rare occurrence. Prognostic immunostains are currently pending, and these results will be available in an addendum report. Overall Assessment: Malignant Management: Surgical Consultation of the right breast. Electronically signed and approved by: Adams Perrin M.D. Radiologis
== END ==
LOC: RADUSWWP 12:28
PROVIDERS: ATTEND Surgery
DX: C50.911 Malignant neoplasm of unspecified site of right female breast (principal); R59.0 Localized enlarged lymph nodes
CPT/HCPCS: 88342; 88307; 88341; 19083; A4648

== ENCOUNTER → 2024-04-06 | Outpatient (CLI) | payer MEDICARE, OTHER ==
--- NOTE | 2024-04-20 10:14 | BMR ---
EXAM DATE: 04/06/2024 EXAM DESCRIPTION: MRI-Breast Bilat (W/WO Contrast) INDICATION: Recently diagnosed right breast carcinoma. Prior history of left breast carcinoma post mastectomy. COMPARISON: Prior mammogram and ultrasound dated 03/09/2024 CONTRAST: 30 mL of gadobutrol contrast material. TECHNIQUE: Multi sequence multiplanar MR imaging of the breasts was obtained. Subsequently, after the uneventful intravenous administration of Gadavist contrast material, 6 dynamic sequences were then obtained. Post processing was performed utilizing a [employer] CAD workstation. FINDINGS: The right breast is composed of heterogeneous fibroglandular tissue. There is mild background parenchymal enhancement identified. Prominent lymph nodes with cortical thickening are present in the right axilla. The dominant 1 measures 1.5 x 1.1 x 1.0 cm (504 image 527 and series 601, image 202) with cortical thickening measuring up to 0.6 cm. No internal mammary lymphadenopathy. No focal skin thickening or nipple retraction in the right breast. No adenopathy in the visualized mediastinum. The bone marrow signal intensity is unremarkable. T2 weighted images demonstrated no dominant cystic lesion in either breast No abnormal enhancement at the left mastectomy site. An implant at the left mastectomy site is present with intracapsular rupture Post contrast images demonstrated a 1.2 x 0.9 x 0.9 cm progressively enhancing mass with associated signal void at right 12 o'clock position 5 cm posterior to the (series 504, image 475 and series 601, image 175) nipple with bright signal intensity on corresponding T2 weighted images consistent with biopsy- proven fibroadenoma. At right 8 o'clock position a well-circumscribed ovoid enhancing mass with washout kinetics and signal void is present at anterior depth measuring 1.3 x 1.0 x 1.2 cm (504 image 267 and series 601, image 183) with bright signal intensity on corresponding to T2 images (401 image 27). There is no abnormal signal or enhancement in the chest wall or subcutaneous tissue. IMPRESSION: 1. A 1.3 cm enhancing mass is present in the right anterior breast at 8 o'clock position with associated signal void consistent with biopsy-proven lymph node with isolated neoplastic cells. 2. A 1.2 cm progressively enhancing mass in the right breast at 12 o'clock position 5 cm posterior to the nipple consistent with biopsy-proven fibroadenoma. 3. Prominent lymph nodes in the right axilla with cortical thickening measuring up to 0.6 cm. Correlate with secondlook ultrasound examination with possible biopsy if clinically appropriate. 4. No MR evidence of recurrent disease at the left mastectomy site. 5. Partly collapsed left breast silicone implant with intracapsular rupture. MTDD
== END | disposition home or self-care (01) ==
LOC: RADMRIMAIN 06:27
PROVIDERS: ATTEND Internal Medicine Hematology & Oncology
DX: C50.412 Malignant neoplasm of upper-outer quadrant of left female breast (principal); N63.15 Unspecified lump in the right breast, overlapping quadrants; Z90.12 Acquired absence of left breast and nipple; Z85.3 Personal history of malignant neoplasm of breast
CPT/HCPCS: C8908; A9585; 77049

== ENCOUNTER → 2024-04-22 | Outpatient (CLI) | payer MEDICARE, OTHER ==
[2024-04-22 10:12] VITALS: BP 131/73; PULSE 66; RESP 17; TEMP 97.9
--- NOTE | 2024-04-22 11:00 | P.PN ---
Subjective Progress Note Date: 04/22/24 Principal diagnosis: right breast isolated tumor cells in a lymph node in the breast and macromets in an axillary node/ second left breast invasive ductal cancer/ first primary in the left 2002 Case presented at tumor board and 03-29-2024. The patient has had a biopsy of a lymph node in the right axilla as well as a lesion in the right breast. Lesion in the right breast revealed a lymph node with subcapsular transient tumor cells. It is believed that this is metastatic disease to the breast. The axillary lymph node biopsy was positive for tumor as well. The consensus is this most likely represents a primary from within the breast. She has an appointment to see Dr. Espino on April 21, however consensus from tumor board is that the patient should have an MRI of the breast as soon as possible. I have called the patient with this information. We are going to contact Dr. Hutson's office or be sure that the MRI is set up in the near future and she will be seen here after she is seen by Dr. Hutson. Original Note: Subjective Progress Note Date: 04-22-24 Principal diagnosis: right breast 8:00 lymph node with isolated tumor cells/reith breat at 12:00 fibroadenoma, 08-21-23 Principal diagnosis: left breast invasive ductal cancer; second primary first in 2002 Courtney is a 73 year old white female seen in consultation for DR. Petit regarding a recurrent left breast cancer, diagnosed innitially in 2002. This was a T2 N1 M0 ER OR negative HER-2 positive. She was treated with A C 4 and radiation therapy to the left breast. She underwent a screening mammogram on . This revealed some concern with calcifications in the left breast. On [id number] left breast diagnostic mammogram was performed which confirmed the calcifications of concern in the left breast. Stereotactic core biopsy was then performed on [id number]. Pathology from this revealed multifocal microinvasive moderately differentiated ductal carcinoma arising in the background of high- grade DCIS. She underwent an ultrasound of the left axilla at [place] on [id number] which was negative. The patient did not feel any new lumps masses or nodules of concern in either breast. She gets mammograms routinely in this was a new finding since the year prior. She was not complaining of any recent trauma or infection of the breast. She was not complaining of any nipple discharge or skin changes. She underwent a left mastectomy on . 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 All margins were negative. The tumor 9 mm and no rigoberto tissue was removed. The patient was seen in consultation by Dr. Hutson on . At that time it was recommended that an Oncotype be performed. He also discussed with her radiation therapy which was not recommended. In additionally he discuss genetic testing which was done. She is on Arimidex, she is tolerating this without difficulty. She was not recommended to have chemotherapy this time. She is not complaining of any new lumps masses or nodules of concern in the right breast. No changes on the left chest wall. She continues on the arimidex. Right breast mammogram on 02-20-23 BIRAD 2. She is not complaining of any lumps masses or nodules on her left chest wall or in her right breast. She did have shingles and was seen in the emergency room several times since her last visit. She is presently taking gabapentin which controls the discomfort as well as 10 mg [place] twice daily. 03-18-24 left breast invasive ductal cancer; second primary first in 2002 She underwent a left mastectomy on . 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 All margins were negative. The tumor 9 mm and no rigoberto tissue was removed. The patient was seen in consultation by Dr. Hutson on . At that time it was recommended that an Oncotype be performed. He also discussed with her radiation therapy which was not recommended. In additionally he discuss genetic testing which was done. She is on Arimidex, she is tolerating this without difficulty. She was not recommended to have chemotherapy this time. She is not complaining of any new lumps masses or nodules of concern in the right breast. No changes on the left chest wall. She continues on the arimidex. Right breast mammogram on 02-20-23 BIRAD 2. She is not complaining of any lumps masses or nodules on her left chest wall or in her right breast. She did have shingles and was seen in the emergency room several times since her last visit. She is presently taking gabapentin which controls the discomfort as well as 10 mg [place] twice daily. She had a right breast mammogram on 02-22-24 BIRAD 0 which led to a right breast ultrasound 02-22-24 BIRAD 4 biopsy of two sites recommended; Biopsy done on 03-09-24 Rated the biopsy without difficulty however she developed ecchymosis at the site. Prior to the biopsy had not noted any lumps masses or nodules of concern in the right breast or on the left chest wall. 12: andreas fibroadenoma 8:00 node with isolated tumor cell; buterfly clip node not biopsied yet but recommended to biopsy 9 oclock recommend follow up 04-22-24 Courtney post ultrasound-guided core biopsy of an axillary lymph node on 03-24-2024. This revealed macro metastatic disease. Of significance is the fact that she had a right breast biopsy of 2 sites on 03-09-2024. The 12:00 site revealed a fibroadenoma in the 8:00 site revealed an isolated tumor cells in a lymph node. The patient has had a prior left breast invasive ductal carcinoma the first diagnosed in 2002 with a recurrence leading to a mastectomy in 2022. She was initially treated with chemotherapy and radiation therapy. A recurrence/primary of the left breast was diagnosed in 2021. She subsequently underwent a mastectomy revealing a 9 mm invasive ductal carcinoma of the left breast in 2022. No rigoberto tissue was removed. She has been on Arimidex since that time. With the new diagnosis of a lesion in the right side the patient has had an MRI of the breast which reveals a lesion in the right breast A PET scan which on verbal report shows only regional disease no metastatic dise ase as per Dr. Espino In consultation with Dr. Espino seen on 04-21-2024. I have had a long discussion with Dr. Espino in the presence of the patient and her at this time he is sending tissue for Oncotype. He is discussing with pathology whether the feel that this is a new primary in the right breast or a metastatic deposit from the left side. He is going to decide on neoadjuvant treatment option after which most likely a mastectomy and rigoberto resection will be recommended. The patient's case will be represented at the next tumor board which will be May 10. The specimen has been sent for Oncotype. The patient is a post follow-up appointment in the first week of May with Dr. Mahoney. The patient will follow-up here in 2 months Caffeine: 2 cups coffee/ several times a week nicotine: none; stopped 35 years ago; used to smoke 1/2 PPD chocolate: daily BCP: none hormones: none Family History: maternal aunt: breast cancer Hormonal History: meanrche: 14 , age at : 37; breast fed: no menopause: 51 Surgical History: Cholecystectomy Colon resection; perforated diverticulitis Left breast lumpectomy and sentinel node possibly axillary node dissection Colostomy reversal Right breast biopsy in the operating room several times left mastectomy Medical History: glaucoma AFIB off blood thinners high cholesterol shingles Social History: nicotine: as above alcohol: with dinner; several times a week drugs: none - Constitutional Constitutional: Denies chills, Denies fever - EENT Eyes: bilateral as per HPI Ears: bilateral: tinnitus, deny: decreased hearing Ears, nose, mouth and throat: Denies headache, Denies sore throat - Breasts Breasts: bilateral: as per HPI - Cardiovascular Cardiovascular: Reports as per HPI - Respiratory Respiratory: Denies cough - Gastrointestinal Gastrointestinal: Reports as per HPI, Reports constipation, Reports diarrhea - Genitourinary (Female) Genitourinary: Denies dysuria, Denies hematuria - Menstruation Menstruation: Reports postmenopausal - Musculoskeletal Comment: heel spur Musculoskeletal: Reports myalgias - Integumentary Integumentary: Denies pruritus, Denies rash - Neurological Neurological: Denies numbness, Denies weakness - Psychiatric Psychiatric: Denies anxiety, Denies depression - Endocrine Endocrine: Denies fatigue, Denies weight change - Hematologic/Lymphatic Comment: none - Allergic/Immunologic Allergic/Immunologic: Reports as per HPI Past Medical History Past Medical History: Atrial Fibrillation, Cancer, Hyperlipidemia Additional Past Medical History / Comment(s): Do Not Use Left Arm for IV or BP- left breast CA with lumpectomy, radiation and chemo 2002. 09/11/19 Divertic ulitis w/ perforation, colostomy; developed AFib w/ RVR, pulmonary edema post- op. History of Any Multi-Drug Resistant Organisms: None Reported Past Surgical History: Bowel Resection, Breast Surgery, Cholecystectomy, Tonsillectomy Additional Past Surgical History / Comment(s): L breast lumpectomy 2002. Gomez proc w/ Colostomy 09/11/19, REVERSAL OF COLOSTOMY, COLONOSCOPY Past Anesthesia/Blood Transfusion Reactions: Motion Sickness Additional Past Anesthesia/Blood Transfusion Reaction / Comment(s): Pt has never received blood. Past Psychological History: No Psychological Hx Reported Additional Psychological History / Comment(s): Pt resides with her spouse of 33 yrs. She is independent. She uses no assistive device. She drives. Smoking Status: Former smoker Past Alcohol Use History: Occasional Additional Past Alcohol Use History / Comment(s): Pt states she started smoking in 1969 and quit in 1990. Pt has 1-2 glasses of wine/beer almost daily. Past Drug Use History: None Reported - Past Family History Father Family Medical History: Myocardial Infarction (CA) Additional Family Medical History / Comment(s): Father had a CA in his 60's. He from a post op hip infection at age 73 yrs. no gallbladder disease Mother Family Medical History: Eye Disorder, Hypertension Additional Family Medical History / Comment(s): Mother had glaucoma. She at age 82 yrs. Medications and Allergies Home Medications Medication Instructions Recorded Confirmed Type Simvastatin [Zocor] 20 mg PO HS 07/01/19 03/26/22 History Cyanocobalamin (Vitamin B-12) 1,000 mcg PO DAILY 01/24/20 03/26/22 History [Vitamin B-12] Metoprolol Tartrate [Lopressor] 25 mg PO BID 01/24/20 03/26/22 History Multivitamins, Thera [Multivitamin 1 tab PO WINN 01/24/20 03/26/22 History (formulary)] Allergies Allergy/AdvReac Type Severity Reaction Status Date / Time bee venom protein (honey bee) Allergy Anaphylaxis Verified 03/26/22 08:45 Objective - Vital Signs Vital signs: Vital Signs Temp 97.9 F 04/22/24 10:11 Pulse 66 04/22/24 10:11 Resp 17 04/22/24 10:11 BP 131/73 04/22/24 10:11 Pulse Ox 97 04/22/24 10:11 FiO2 Intake & Output 04/21/24 04/22/24 04/22/24 18:59 06:59 18:59 Weight 72.575 kg - Constitutional General appearance: Present: cooperative - EENT Eyes: Present: EOMI ENT: Present: hearing grossly normal - Neck Neck: Present: normal ROM - Respiratory Respiratory: bilateral: CTA - Cardiovascular Heart sounds: normal: S1, S2 - Integumentary Integumentary: Present: normal turgor - Musculoskeletal Musculoskeletal: Present: gait normal - Psychiatric Psychiatric: Present: A&O x's 3, appropriate affect, intact judgment & insight - Additional findings Additional findings: Breast Exam: Bra: 38C Inspection: Right breast grade 2/3 ptosis, left chest wall no evidence of recurrence Palpation: Right breast: Multi-positional exam no dominant masses or nodules of concern; right Axilla: No adenopathy of concern Left chest wall: No evidence of recurrent disease Left axilla: No adenopathy of concern fungal infection under right breast Assessment and Plan Assessment: Impression: Patient status post left mastectomy for a second left breast invasive ductal carcinoma Patient presently on arimidex Fungal infection under right breast Abnormal right breast mammogram/ultrasound leading to core biopsy on 03-09-2024 12 o'clock position fibroadenoma coil clip 8 o'clock position lymph node with isolated tumor cells butterfly clip Recommendation for ultrasound-guided biopsy of enlarged lymph node right axilla/ done 03-24-24 showing macro metastatic disease Plan: Presentation of case at tumor board/done 03-29-24; present case at tumor board and 05 10 24 Follow-up DR. Hutson; will get some neoadjuvant treatment and then probable right mastectomy and axillary node resection; specimen has been sent for Oncotype, he is going to see her the first week in May, representation of case at tumor board on 05 10 24 Nystatin under right breast as needed Time spent 50 minutes examining, and discussing the test results and treatment plan with the patient and her , I have personally reviewed and showed them the the radiographs. We have had a conversation jointly with Dr. Hutson where the treatment plan has also been discussed. The patient and her understand and they will follow with him the first week of May. Cc: Dr. Estrada
== END ==
LOC: WWCWWP 09:03
PROVIDERS: ATTEND Surgery
DX: R92.1 Mammographic calcification found on diagnostic imaging of breast (principal); C50.911 Malignant neoplasm of unspecified site of right female breast; C50.912 Malignant neoplasm of unspecified site of left female breast; C79.81 Secondary malignant neoplasm of breast; B48.8 Other specified mycoses; N63.10 Unspecified lump in the right breast, unspecified quadrant; Z90.12 Acquired absence of left breast and nipple; Z92.3 Personal history of irradiation; Z92.21 Personal history of antineoplastic chemotherapy; Z91.030 Bee allergy status; Z87.891 Personal history of nicotine dependence; Z80.3 Family history of malignant neoplasm of breast; Z17.22 Progesterone receptor negative status; Z17.1 Estrogen receptor negative status [ER-]

== ENCOUNTER → 2024-05-13 | Outpatient (CLI) | payer MEDICARE, OTHER ==
[2024-05-13 13:15] VITALS: BP 120/75; PULSE 62; RESP 17; TEMP 98.3
--- NOTE | 2024-05-13 14:04 | P.BCPN ---
Subjective Progress Note Date: 05/13/24 Principal diagnosis: Left breast invasive ductal carcinoma 2002 [id number] second primary and left breast 2021 T1 Breast intramammary lymph node positive for tumor cells, positive right axillary lymph node Courtney is a 73-year-old female with a known left breast cancer diagnosed in 2002. This was T2 N1 M0 ER/DC negative, HER2 positive. She was treated with a/C x 4, and x-ray therapy to the left breast. She did well until she was noted on a screening mammogram to have some left breast calcifications with distortion in the upper outer quadrant of the left breast. She had a stereo biopsy at [facility] and 02-27-2022. This revealed multifocal microinvasive carcinoma. This was ER DC positive and HER2 negative. She subsequently underwent a mastectomy with attempted sentinel node biopsy on 05-15-2022. The final pathology showed invasive ductal carcinoma largest focus was 9 mm and DCIS 1.2 cm. There was a separate focus of invasive cancer less than 1 mm and less than 1 mm from the skin surface. No nodes were identified in the specimen. Oncotype testing was done time and was low. She had a breast next test done which revealed a variant of unknown significance of the BRCA2 gene. She was started on anastrozole in June 2022. The patient then was noted to have a suspicious lesion on her right breast in March 2024. This was a 1.3 cm mass at 8:00 and another 1.2 cm mass at 12:00. She underwent a core biopsy of both of these on 03-09-2024. The 8:00 lesion revealed isolated cancer cells in a lymph node. The ER staining was negative. The 12:00 lesion was a sclerotic fibroadenoma. The patient then had an MRI of the breast as well as a PET scan. MRI confirmed malignant appearance of the biopsy lesion at 8:00 and also revealed a suspicious lymph node with cortical thickening in the right axilla. The PET scan showed borderline uptake in the right axillary nodes and mild uptake in the 8:00 lesion in the breast. There was no evidence of metastatic disease. Biopsy of the right axillary node on 03-24-2024 revealed macro metastatic ductal carcinoma. This tumor was ER positive DC positive and HER2 negative. The patient's case was discussed at tumor board on 03-29-2024. It was represented at tumor board on 01 08 25. Her case has been extensively discussed and reviewed with Dr. Espino. After review of the case it was felt that we could not confirm whether the lesion in the right breast was a metastatic deposit or primary within the breast. Therefore the recommendation was for a right breast mastectomy, right needle localization of the lymph node of concern. Right sentinel node injection. Right sentinel node biopsy. Possible right axillary node dissection. 2 cups of coffee several times a week Nicotine: None stopped 35 years ago used to smoke a half a pack per day Chocolate: Daily control pills: Negative Hormones: Negative Family history: Maternal aunt: Breast cancer Hormonal history: Menarche: 14 G1, P1, age at : 37, breast-fed: No Menopause: 51 Surgical history: Cholecystectomy Colon resection perforated diverticulitis Left breast lumpectomy and sentinel node possible axillary node dissection Colostomy reversal Right breast biopsy in the operating room several times Left breast mastectomy Medical history: Glaucoma Atrial fibrillation off blood thinners High cholesterol Shingles Social history: Nicotine: As above Alcohol: With dinner several times a week Drugs: Negative Was: Constitutional: Denies chills denies fever HEENT: Negative Breast: As above Cardiovascular: Atrial Fibrillation Respiratory: Negative GI: Reports constipation reports diarrhea : Denies dysuria denies hematuria Menstruation: Postmenopausal Musculoskeletal: Heel spur, myalgias Integument: Negative Neurologic: Negative Psychiatric: Negative Endocrine: Negative Objective - Vital Signs Vital Signs: Vital Signs Temp 98.3 F 05/13/24 13:12 Pulse 62 05/13/24 13:12 Resp 17 05/13/24 13:12 BP 120/75 05/13/24 13:12 Pulse Ox 96 05/13/24 13:12 FiO2 Intake & Output 05/12/24 05/13/24 05/13/24 18:59 06:59 18:59 Weight 72.575 kg - Constitutional General appearance: Present: cooperative - EENT Eyes: Present: EOMI ENT: Present: hearing grossly normal - Neck Neck: Present: normal ROM - Breast Breast-Narrative: Breast Exam: Bra: 38C Inspection: Right breast grade 2/3 ptosis, left chest wall no evidence of recurrence Palpation: Right breast: Multi-positional exam no dominant masses or nodules of concern; right Axilla: No adenopathy of concern Left chest wall: No evidence of recurrent disease Left axilla: No adenopathy of concern fungal infection under right breast - Respiratory Respiratory: bilateral: CTA - Cardiovascular Rhythm: regular Heart sounds: normal: S1, S2 - Integumentary Integumentary: Present: normal turgor - Musculoskeletal Musculoskeletal: Present: gait normal - Psychiatric Psychiatric: Present: A&O x's 3, appropriate affect, intact judgment & insight - Additional findings Additional findings: Breast Exam: Bra: 38C Inspection: Right breast grade 2/3 ptosis, left chest wall no evidence of recurrence Palpation: Right breast: Multi-positional exam no dominant masses or nodules of concern; right Axilla: No adenopathy of concern Left chest wall: No evidence of recurrent disease Left axilla: No adenopathy of concern Assessment and Plan Plan: Impression: Patient status post left mastectomy for a second left breast invasive ductal carcinoma Patient stopped arimidex Abnormal right breast mammogram/ultrasound leading to core biopsy on 03-09-2024 12 o'clock position fibroadenoma coil clip 8 o'clock position lymph node with isolated tumor cells butterfly clip Lymph node positive for cancer right axilla Plan: right breast mastectomy, needle localization of + node right axilla , resection of + node right axilla, and right sentinal node injection, right Sentinal node biopsy and possible right axillary dissection To the procedure discussed with the patient and her . Risk include but are not limited to bleeding, infection, reaction to the anesthetic. They understand and wish to proceed. They understand she may have some decrease sensation to the inner arm as well as some lymphedema could develop. Additionally we may not find cancer within the right breast as a primary source. They understand and again wished to proceed. Oncotype ordered on April 28 still pending. passed arm abduction pre-op education given to patient clearance Dr. Estrada clearance Dr. Izquierdo
--- NOTE | 2024-05-13 15:56 | P.PN ---
Subjective Progress Note Date: 05/13/24 To Whom it May Concern: Courtney Castellano is scheduled to undergo major surgery on 05-26-2024. It is recommended that she not travel in the immediate postoperative period. This would include approximately 1 month from the time of surgery. Thank You for your attention to this matter: Sincerely, Dr. Marry Noonan Objective - Vital Signs Vital signs: Vital Signs Temp 98.3 F 05/13/24 13:12 Pulse 62 05/13/24 13:12 Resp 17 05/13/24 13:12 BP 120/75 05/13/24 13:12 Pulse Ox 96 05/13/24 13:12 FiO2 Intake & Output 05/12/24 05/13/24 05/13/24 18:59 06:59 18:59 Weight 72.575 kg
== END ==
LOC: WWCWWP 12:26
PROVIDERS: ATTEND Surgery
DX: C50.911 Malignant neoplasm of unspecified site of right female breast (principal); C77.9 Secondary and unspecified malignant neoplasm of lymph node, unspecified; Z87.891 Personal history of nicotine dependence; Z91.030 Bee allergy status; Z90.12 Acquired absence of left breast and nipple; Z85.3 Personal history of malignant neoplasm of breast

== ENCOUNTER 2024-05-26 07:20 | Day surgery (SDC) | payer MEDICARE, OTHER ==
[2024-05-24 16:47] VITALS: BMI 25.4
[2024-05-26] MEDS ORDERED: fentaNYL (PF) 50 MCG/ML 2 ML AMP IVP PRN (07:34)
[2024-05-26] MEDS ORDERED: LIDOCAINE 1% (10MG/ML) FOR IV START INTRADERMA PRN (07:34)
[2024-05-26] MEDS: IV FLUID CONTINUATION 1,000 ML IV ONE (08:10)
[2024-05-26] MEDS: LACTATED RINGERS 1,000 ML IV SCH (08:10)
[2024-05-26] MEDS: ACETAMINOPHEN TAB 500 MG TAB PO PRN (08:15)
[2024-05-26] MEDS: ALPRAZolam 0.25 MG TAB PO STA (08:25)
[2024-05-26] MEDS: SODIUM BICARB 8.4% 50 ML VIAL (1 MEQ/ML) MISCELLANE ONE (09:00)
[2024-05-26] MEDS: LIDOCAINE 1% INJ 10MG/ML (20 ML MDV) SQ ONE ×2 (09:00→12:50)
--- NOTE | 2024-05-26 09:49 | NM ---
EXAMINATION TYPE: NM sentinel node injection DATE OF EXAM: 05/26/2024 COMPARISON: NONE CLINICAL INDICATION: Female, 73 years old with history of right C50.911 BREAST CANCER; TECHNIQUE AND FINDINGS: The procedure of sentinel lymph node injection was explained to the patient. The benefits, alternatives, and risks were discussed. An informed consent was then obtained. Overlying skin is cleaned with sterile alcohol. Following this, 510 uCi Tc99m Tilmanocept was inject ed in the upper outer aspect of the right nipple intradermally. The patient tolerated the procedure well without any immediate complication. The patient was kept in the radiology department for short stay after the procedure and then taken to surgery for surgical p rocedure what is presumed intraoperative gamma probe will be used for sentinel lymph node detection. IMPRESSION: Right breast radiotracer injection for sentinel node localization as above. [facility], , 05/26/2024 9:47 AM
[2024-05-26] MEDS: MIDAZOLAM 2 MG/2 ML VIAL IV PRN (10:08)
[2024-05-26] MEDS: ONDANSETRON 4 MG/2 ML VIAL IVP ONE (10:14)
[2024-05-26] MEDS: DEXAMETHASONE SOD PHOSPHATE 4 MG/ML 1 ML VIAL IV ONE (10:15)
[2024-05-26] MEDS: HEPARIN SODIUM,PORCINE 5,000 UNIT/ML 1 ML VIAL SQ PRN (10:15)
--- NOTE | 2024-05-26 10:17 | P.NAPBC ---
NAP Queries - [facility] Queries Was patient's case review presented at [facility] tumor board? If no, comment.: Yes Was patient's pathology reviewed at [facility]? If no, comment.: Yes Was breast conservation surgery offered? If no, comment.: Yes (discussed but unsure of source of primary) Was sentinel node biopsy offered? If no, comment.: Yes Was diagnosis confirmed by percutaneous core biopsy? If no, comment.: Yes Is patient mastectomy patient?: Yes Was a preop referral to reconstructive surgeon offered?: Yes Clinical Stage: T?N1M0 (node + in breast and node+ axilla)
[2024-05-26] MEDS ORDERED: fentaNYL (PF) 50 MCG/ML 2 ML AMP ONE (10:25)
[2024-05-26] MEDS ORDERED: KETAMINE HCL IN 0.9 % NACL 50 MG/5 ML SYRINGE ONE (10:25)
[2024-05-26] MEDS ORDERED: ePHEDrine 50 MG/ML 1 ML VIAL ONE (10:25)
[2024-05-26] MEDS ORDERED: LIDOCAINE 1% INJ 10MG/ML (20 ML MDV) ONE (10:25)
[2024-05-26] MEDS ORDERED: ROPIVACAINE 5 MG/ML 30 ML VIAL ONE (10:25)
[2024-05-26] MEDS ORDERED: GLYCOPYRROLATE 0.2 MG/ML 2 ML VIAL ONE (10:25)
[2024-05-26] MEDS ORDERED: PHENYLEPHRINE 10 MG/ML VIAL ONE (10:25)
[2024-05-26] MEDS ORDERED: SODIUM CHLORIDE 0.9% (PF) 10 ML VIAL ONE (10:25)
[2024-05-26] MEDS ORDERED: MIDAZOLAM 2 MG/2 ML VIAL ONE (10:25)
[2024-05-26] MEDS ORDERED: SUCCINYLCHOLINE CHLORIDE 200 MG/10 ML VIAL IV ONE (10:25)
[2024-05-26] MEDS ORDERED: DEXAMETHASONE SOD PHOSPHATE 4 MG/ML 1 ML VIAL ONE (10:25)
[2024-05-26] MEDS ORDERED: PROPOFOL 10 MG/ML 20 ML VIAL IV ONE (10:25)
[2024-05-26] MEDS: LACTATED RINGERS 500 ML IV ONE (11:30)
--- NOTE | 2024-05-26 12:40 | P.ANPRN ---
Procedure Note - Anesthesia - Nerve Block Performed Right Erector Spinae Single Time Out Performed: Yes Date of Procedure: 05/26/24 Procedure Start Time: 10:07 Procedure Stop Time: 10:11 Location of Patient: PreOp Indication: Acute Post-Operative Pain, Requested by Surgeon Sedation Type: Sedate with meaningful contact maintained Preparation: Sterile Prep Position: Sitting Needle Types: Pajunk Needle Gauge: 21 Ultrasound used to visualize needle placement: Yes Ultrasound used to observe medication spread: Yes Blood Aspirated: No Pain Paresthesia on Injection Noted: No Resistance on Injection: Normal Image Stored and Saved: Yes Events: Uneventful and Well Tolerated (Ropivacaine 0.5% 15 cc plus normal saline 10 cc plus dexamethasone 4 mg given on the right side at T 6)
[2024-05-26] MEDS ORDERED: CALCIUM CARBONATE 500 MG CHEWABLE PO PRN (12:55)
[2024-05-26] MEDS ORDERED: BENZOCAINE/MENTHOL LOZENG 1 EACH LOZENGE MUCOUS MEM PRN (12:55)
[2024-05-26] MEDS ORDERED: NALOXONE 0.4 MG/ML 1 ML VIAL IV PRN (12:55)
[2024-05-26] MEDS ORDERED: MORPHINE SULFATE 4 MG/ML SYRINGE IVP PRN (12:55)
--- NOTE | 2024-05-26 13:28 | P.BCAON ---
Date of Procedure: 05/26/24 Preoperative Diagnosis: Right breast positive intramammary cancer and a lymph node/positive right axillary lymph node Postoperative Diagnosis: Same Procedure(s) Performed: Right mastectomy with resection of sentinel node and ultrasound-guided localization of lymph node in the right axilla Anesthesia: JOSE Surgeon: Ana María Doan Estimated Blood Loss (ml): 30 IV fluids (ml): 900 Pathology: other Condition: stable Disposition: floor Indications for Procedure: Biopsy-proven right breast and right axillary rigoberto cancer consistent with breast primary Operative Findings: Fibrofatty breast tissue Description of Procedure: The patient was brought to the operative suite following being seen in the preoperative area. Initially she was seen in the radiology department where needle localization of a lymph node of concern in the right axilla was performed as well as injection of radiotracer in the right periareolar region. After she was brought to the operative suite there was induction of anesthesia. The neoprobe was used to interrogate the axilla. Radioactivity was identified in the axilla. Therefore the right breast and axilla were prepped and draped in a sterile fashion. The breast had been marked for superior and inferior skin flaps. The superior skin flap was developed. This was brought down to the area of the axilla. In the area of the axilla of the area of needle local was identified and the needle was brought into the incision. The needle had been placed preoperatively by ultrasound guidance and using careful dissection that tissue was resected. Additionally it was noted that that tissue which was resected was the radioactive tissue and consistent with a sentinel lymph node. The 10-second count on the radioactive node was 1100, the 10-second background count in the axilla was 30. After that tissue had been removed the specimen was painted for orientation and sent to radiology. Confirmation that the area of concern to been removed was obtained. Following this there was noted to be a palpable node in the axilla and this was resected. No other radioactive or palpable nodes of concern were identified. Following this the inferior flap was developed. This was dissected down to the pectoralis muscle. The breast was removed from medial to lateral from the pectoralis muscle being careful to maintain hemostasis using the harmonic scalpel and the electrocautery device. 2 KATARINA drains were placed 1 in the axilla and 1 under the flaps. The subcutaneous tissues were brought together with interrupted sutures using 3-0 Vicryl suture. The drains were secured using 3-0 nylon suture. A 3-0 running Vicryl suture was placed in the subcu tenia's tissue. A 4-0 Monocryl subcuticular suture was placed. Surgical glue was placed. The drains held suction without difficulty. The patient tolerated the procedure in stable condition. All instrument and sponge counts were correct at the end of the case. 20 cc of 1% lidocaine were injected into the incision. - Sentinal Node Biopsy Operation performed with curative intent: Yes Tracer(s) used in upfront surgery (non-neoadjuvant): radioactive tracer Tracer(s) used in the neoadjuvant setting: N/A All nodes present at end of dye-filled channel removed: N/A All significantly radioactive nodes were removed: Yes All palpably suspicious nodes were removed: Yes Clipped positive nodes identified and removed: Yes
[2024-05-26] MEDS: HYDROmorphone 0.5 MG/0.5 ML SYRINGE IVP PRN (14:18)
[2024-05-26] MEDS: ACETAMINOPHEN TAB 325 MG TAB PO PRN (16:17)
[2024-05-26] MEDS: SODIUM CHLORIDE 0.9% 1,000 ML IV SCH (17:53)
[2024-05-26] MEDS: HEPARIN SODIUM,PORCINE 5,000 UNIT/ML 1 ML VIAL SQ SCH (20:44)
[2024-05-27] MEDS: HYDROcodone/APAP 5-325MG 1 EACH TAB PO PRN (01:29)
[2024-05-27] MEDS: amLODIPine 2.5 MG TAB PO STA (04:39)
[2024-05-27 06:41] LABS: Basophils % (A) 0 %; Eosinophils % (A) 0 %; HGB 12.3 gm/dL (11.4-16.0); Lymphocytes # (A) 1.3 k/uL (1.0-4.8); Lymphocytes % (A) 10 %; MCH 28.1 pg (25.0-35.0); MCHC 32.5 g/dL (31.0-37.0); MCV 86.4 fL (80.0-100.0); Mean Platelet Volume 7.1; Monocytes # (A) 1.1 k/uL (0-1.0); Monocytes % (A) 7 %; Neutrophils # (A) 11.6 k/uL (1.3-7.7); Neutrophils % (A) 82 %; Platelet Count 268 k/uL (150-450); RBC 4.39 m/uL (3.80-5.40); RDW 12.8 % (11.5-15.5); WBC 14.1 k/uL (3.8-10.6)
[2024-05-27] MEDS ORDERED: GABAPENTIN 300 MG CAP PO PRN (08:26)
--- NOTE | 2024-05-27 08:30 | P.PN ---
Subjective Progress Note Date: 05/27/24 Principal diagnosis: Postop day #1 right mastectomy with axillary node biopsies Courtney is a 73-year-old female status post right mastectomy and right sentinel node biopsy, resection of right axillary node marked with a needle local preoperatively. The patient postprocedure is doing well. She is tolerating diet without difficulty. Her pain is under control. Her KATARINA output is 20 cc combined and is serous in nature. Hemoglobin 12.3 white count 14.1 Objective - Vital Signs Vital signs: Vital Signs Temp 98.0 F 05/27/24 03:00 Pulse 104 H 05/27/24 05:44 Resp 16 05/27/24 05:44 BP 160/82 05/27/24 05:44 Pulse Ox 95 05/27/24 05:44 FiO2 Intake & Output 05/26/24 05/27/24 05/27/24 18:59 06:59 18:59 Intake Total 1300 Output Total 30 620 Balance 1270 -620 Weight 71.9 kg Intake: IV 1300 Output: Drainage 20 Right Breast 20 Urine 600 Estimated Blood Loss 30 Other: # Voids 1 3 - Constitutional General appearance: Present: cooperative - EENT Eyes: Present: EOMI ENT: Present: hearing grossly normal - Neck Neck: Present: normal ROM - Respiratory Respiratory: bilateral: CTA - Cardiovascular Heart sounds: normal: S1, S2 - Integumentary Integumentary Comment(s): incision right chest wall clean and dry - Psychiatric Psychiatric: Present: A&O x's 3, appropriate affect, intact judgment & insight - Labs CBC & Chem 7: 05/27/24 06:16 Labs: Abnormal Lab Results - Last 24 Hours (Table) 05/27/24 Range/Units 06:16 WBC 14.1 H (3.8-10.6) k/uL Neutrophils # 11.6 H (1.3-7.7) k/uL Monocytes # 1.1 H (0-1.0) k/uL Assessment and Plan Assessment: Impression: Patient doing well postop day #1 right mastectomy and right axillary node resection Plan: Discharge home Teach drain care Follow-up Dr. Weiss next week
--- NOTE | 2024-05-27 08:33 | P.DS ---
Providers Date of admission: 05-26-24 Expected date of discharge: 05/27/24 Attending physician: Ana María Doan Consults: 05/26/24 12:58 Consult Physician Routine Consulting Provider: Leslie Estrada Consult Reason/Comments: medical managment Do you want consulting provider notified?: Yes Primary care physician: Leslie [facility] Course: Patient is postop day #1 right breast mastectomy and axillary node resection. Postoperatively she is doing well with no difficulties. Plan - Discharge Summary Discharge Rx Participant: Yes New Discharge Prescriptions: No Action Metoprolol Tartrate [Lopressor] 25 mg PO BID Ciprofloxacin HCl [Cipro] 250 mg PO DAILY HYDROcodone/APAP 10-325MG [[place] 10-325] 1 tab PO TID PRN PRN Reason: Neuropathy B Complex-Vit C-Vit E-Zinc [Z-Bec] 1 tab PO DAILY Gabapentin [Neurontin] 300 mg PO TID PRN PRN Reason: Neuropathy Discharge Medication List Metoprolol Tartrate [Lopressor] 25 mg PO BID 01/24/20 [History] B Complex-Vit C-Vit E-Zinc [Z-Bec] 1 tab PO DAILY 08/21/23 [History] Gabapentin [Neurontin] 300 mg PO TID PRN 08/21/23 [History] Ciprofloxacin HCl [Cipro] 250 mg PO DAILY 05/24/24 [History] HYDROcodone/APAP 10-325MG [[place] 10-325] 1 tab PO TID PRN 05/24/24 [History] Follow up Appointment(s)/Referral(s): Ana María Doan MD [STAFF PHYSICIAN] - 3 Days Activity/Diet/Wound Care/Special Instructions: Teach patient drain care, drain and record KATARINA output from each KATARINA every 24 hours May shower after [address] until seen by Dr. Weiss Teach patient and dressing changes Discharge Disposition: HOME SELF-CARE
[2024-05-27] MEDS: METOPROLOL TARTRATE 25 MG TAB PO SCH (09:30)
[2024-05-27 09:35] VITALS: RESP 17; TEMP 98.9
--- NOTE | 2024-05-27 09:53 | P.CONS ---
History of Present Illness - Reason for Consult Consult date: 05/27/24 Medical management Requesting physician: Ana María Doan - History of Present Illness Courtney cobos is a 73-year-old female patient who was admitted for planned right breast mastectomy with axillary node resection. Patient has a history of right breast positive intramammary cancer and lymph node positive right axillary. Patient has past medical history of essential hypertension, hyperlipidemia and UTI. Additional medical history includes left breast cancer with left mastectomy. Patient is currently postop day 1. Patient noted to have elevated blood pressure Home meds have been resumed patient to follow-up with PCP for further management outpatient. At this time patient denies chest pain or shortness of breath. Patient denies nausea vomiting or diarrhea. Patient denies any urinary burning or frequency. Current vital signs temp 98.9, heart rate 91, respiratory rate 17, blood pressure 156/78, SpO2 98% on room air. Review of Systems Please refer to HPI otherwise unremarkable Past Medical History Past Medical History: Atrial Fibrillation, Cancer, GERD/Reflux, Hyperlipidemia Additional Past Medical History / Comment(s): Current right breast cancer. Recent UTI, will finish Cipro 05/25/24. Do Not Use Left Arm for IV or BP. Hx left breast cancer with lumpectomy, radiation and chemo 2002, then mastectomy 2022. 09/11/19 Diverticulitis w/ perforation, colostomy, developed AFib w/ RVR, pulmonary edema post-op. Colostomy later reversed. Hx Shingles 07/2023. Neuropathy in feet. History of Any Multi-Drug Resistant Organisms: None Reported Past Surgical History: Bowel Resection, Breast Surgery, Cholecystectomy, Tonsillectomy Additional Past Surgical History / Comment(s): Left breast lumpectomy 2002, Gomez procedure w/ Colostomy 09/11/19, colostomy later reversed, left breast mastectomy 2022. Past Anesthesia/Blood Transfusion Reactions: Motion Sickness Additional Past Anesthesia/Blood Transfusion Reaction / Comm: Pt has never received blood. Past Psychological History: No Psychological Hx Reported Additional Psychological History / Comment(s): Pt resides with her spouse of 33 yrs. She is independent. She uses no assistive device. She drives. Smoking Status: Former smoker Past Alcohol Use History: Occasional Additional Past Alcohol Use History / Comment(s): Started smoking in 1969 and quit in 1990. One drink about 2-3 times weekly, no alcohol recently. Past Drug Use History: None Reported - Past Family History Father Family Medical History: Myocardial Infarction ([place]) Additional Family Medical History / Comment(s): Father had a [place] in his 60's, from a post op hip infection at age 73 yrs. No gallbladder disease. Mother Family Medical History: Eye Disorder, Hypertension Additional Family Medical History / Comment(s): Mother had glaucoma, at age 82 yrs. Medications and Allergies Home Medications Medication Instructions Recorded Confirmed Type Metoprolol Tartrate [Lopressor] 25 mg PO BID 01/24/20 05/26/24 History B Complex-Vit C-Vit E-Zinc [Z-Bec] 1 tab PO DAILY 08/21/23 05/24/24 History Gabapentin [Neurontin] 300 mg PO TID PRN 08/21/23 05/26/24 History Ciprofloxacin HCl [Cipro] 250 mg PO DAILY 05/24/24 05/26/24 History HYDROcodone/APAP 10-325MG [[place] 1 tab PO TID PRN 05/24/24 05/26/24 History 10-325] Allergies Allergy/AdvReac Type Severity Reaction Status Date / Time bee venom protein (honey bee) Allergy Anaphylaxis Verified 05/26/24 07:45 Physical Exam Vitals: Vital Signs Temp Pulse Pulse Pulse Resp BP BP 05/27/24 08:00 98.9 F 91 17 156/78 05/27/24 05:44 104 H 16 160/82 05/27/24 03:00 98.0 F 92 16 05/26/24 17:07 72 16 05/26/24 16:37 75 16 05/26/24 16:07 89 16 05/26/24 15:52 79 16 05/26/24 15:37 77 16 05/26/24 15:22 97.3 F L 70 16 05/26/24 14:47 68 16 155/72 05/26/24 14:32 69 15 157/73 05/26/24 14:17 65 16 177/81 05/26/24 14:02 67 15 172/80 05/26/24 13:47 71 18 176/83 05/26/24 13:32 68 16 165/73 05/26/24 13:17 97 F L 78 13 178/81 05/26/24 10:20 62 16 135/63 BP Pulse Ox 05/27/24 08:00 98 05/27/24 05:44 95 05/27/24 03:00 176/73 97 05/26/24 17:07 131/60 97 05/26/24 16:37 158/77 98 05/26/24 16:07 145/72 99 05/26/24 15:52 144/69 99 05/26/24 15:37 164/81 99 05/26/24 15:22 150/74 98 05/26/24 14:47 98 05/26/24 14:32 100 05/26/24 14:17 100 05/26/24 14:02 100 05/26/24 13:47 100 05/26/24 13:32 100 05/26/24 13:17 100 05/26/24 10:20 100 Intake and Output 05/26/24 05/27/24 05/27/24 22:59 06:59 14:59 Intake Total 400 Output Total 600 20 Balance -600 -20 400 Intake: IV 400 Invasive Line 1 400 Output: Drainage 20 Right Breast 20 Urine 600 Other: # Voids 1 3 Weight 71.9 kg Chest dressing clean dry and intact Head normocephalic Neck supple Lungs clear to auscultation bilaterally no wheezing or crackles Heart regular rate and rhythm S1-S2, no rub or gallop Abdomen is soft nontender nondistended positive bowel sounds no hepatosplenomegaly Extremities no edema Neuro alert and orientated to 3 Results CBC & Chem 7: 05/27/24 06:16 Labs: Abnormal Lab Results - Last 24 Hours (Table) 05/27/24 Range/Units 06:16 WBC 14.1 H (3.8-10.6) k/uL Neutrophils # 11.6 H (1.3-7.7) k/uL Monocytes # 1.1 H (0-1.0) k/uL Assessment and Plan Assessment: 1. Status post right mastectomy and right lymph node biopsy and resection of right axillary node 2. History of breast cancer 3. History of essential hypertension. Patient to resume home medication follow-up outpatient with PCP 4. History of GERD 5. History of diverticulitis Thank you for this consultation we will continue to follow patient closely throughout stay Time with Patient: Greater than 30 (Greater than 60% of the total time spent in counseling and coordination of care)
[2024-05-27 10:32] VITALS: BP 129/69; PULSE 77
--- NOTE | 2024-06-03 11:30 | MM ---
Pathology Description: Location: axilla. Needle Type: 7 cm Kopan The procedure of needle localization with wire placement and than surgical excision was explained to the patient. Benefits, alternatives, and risks were discussed. An informed consent was then obtained. The shortest pathway for procedure was chosen. Shortest pathway was an inferior approach. The overlying skin was prepped and draped in usual sterile fashion. Lidocaine buffered with bicarbonate was used as anesthetic into the skin and subcutaneous tissue up to the level of area of concern. A 7 cm Kopans needle was used. It was placed via an inferior approach under direct ultrasound guidance. At this point, wire was placed and the needle was withdrawn. The wire was fixed to patient's skin. Images were marked for surgeon. The patient tolerated the procedure well without any immediate complication. The patient was kept in the radiology department for short stay after the procedure and then taken to surgery for surgical excision. Clip, lymph node, and wire are identified in specimen mammogram. A second lymph node is also within the specimen. The patient was kept in hospital for short stay after the procedure and then discharged home in stable condition. IMPRESSION: Successful, uncomplicated needle localization with wire placement and surgical excision of biopsy-proven metastatic right axillary lymph node; full pathology results to follow. [facility], , 05/26/2024 11:46 AM Download Expand Download. Pathology Results: Result: Malignant. Pathology and radiology were reviewed. Findings are concordant. A. RIGHT AXILLA, EXCISION: Three of five axillary lymph nodes positive for macrometastatic mammary ductal carcinoma (see note). Metastatic foci range from 7 mm to 16 mm in greatest microscopic dimension. Lymphovascular invasion present. Negative for extranodal extension. Surrounding benign fibroadipose tissue and all margins negative for malignancy. Biopsy site change associated with lymphoid tissue present. B. RIGHT BREAST, MASTECTOMY: Three of four lymph nodes from lateral aspect of mastectomy and one intramammary lymph node (4 of 5 lymph nodes involved in total) positive for macrometastatic mammary ductal carcinoma with metastatic foci ranging from approximately 2.5 mm to 7 mm in greatest dimension. Negative for extranodal extension and positive for lymphovascular invasion. Biopsy site change associated with intramammary node with metastatic carcinoma. Sclerotic fibroadenoma with biopsy site change and focal microcalcification at the 12:00 position. Benign nipple skin. Surrounding breast tissue with fibrocystic change having apocrine metaplasia, fibrosis with focal fibroadenomatoid hyperplasia, columnar cell change, focal microcalcification and moderate usual ductal hyperplasia. Surrounding breast tissue negative for in situ or invasive carcinoma and marginal tissue examined benign. See note. C. LYMPH NODE, RIGHT AXILLARY, EXCISION/DISSECTION: One of two axillary area lymph nodes positive for macrometastatic carcinoma with metastatic focus measuring up to approximately 4 mm in continuous greatest dimension. Positive for lymphovascular invasion and negative for extranodal extension. See note. Notes Tumor from the prior left 2022 mastectomy (case [id number]) and prior 2023 right axillary biopsy (case [id number]) are compared to the current case. Metastatic tumor from the current case within rigoberto tissue in all three specimens has similar morphology to both of these prior cases on H+E staining, with tumor cells having moderate nuclear atypia and increased eosinophilic cytoplasm. All metastatic tumor within this current case, in all three specimens, shows the same morphologic features on H+E staining. Lymphovascular invasion is present within the tissue surrounding rigoberto tissue and associated with rigoberto tissue within all three specimens, and the prior left mastectomy from 2022 also showed both dermal and mammary lymphovascular invasion. No diagnostic in situ or invasive carcinoma is seen within the right mastectomy specimen in specimen B. Due to these findings, this case may represent a very rare occurrence of contralateral right breast intramammary and right axillary metastatic mammary ductal carcinoma originating from a left breast primary site. However, clinical correlation with imaging studies and clinical findings is recommended. The left breast biopsy from 2021 (case [id number]) showed tumor to be ER positive (91-100%, strong), SC positive (51-60%, moderate intensity) and HER2 by IHC was negative (score 0). The right axillary lymph node biopsy from 2023 (case [id number]) showed tumor to be ER positive (91-100%, moderate to strong intensity), SC positive (11-20%, weak to moderate intensity), a Ki-67 staining of 20-30% of tumor and HER2 IHC to be negative (score 1+). Overall Assessment: Malignant Management: Surgical Consultation of the right breast. Electronically signed and approved by: Toby Pandya M.D. Radiologist
== END 2024-05-27 10:25 | disposition home or self-care (01) ==
LOC: OR 07:20 → 4FBP 13:00 → OR 05-27 10:25
PROVIDERS: ATTEND Surgery
DX: C50.911 Malignant neoplasm of unspecified site of right female breast (principal); C77.3 Secondary and unspecified malignant neoplasm of axilla and upper limb lymph nodes; E78.5 Hyperlipidemia, unspecified; I48.91 Unspecified atrial fibrillation; K21.9 Gastro-esophageal reflux disease without esophagitis; Z87.891 Personal history of nicotine dependence; Z91.030 Bee allergy status; Z79.899 Other long term (current) drug therapy
CPT/HCPCS: 64999; 85025; 88307; 76098; 19285; 38792; C1819; A9520; J2250; J0330; J1644 ×2; J1100; J0690; J2405; J2003; J3010; J2795; J2704; J1171; J2371; J1596

== ENCOUNTER → 2024-05-31 | Outpatient (CLI) | payer MEDICARE, OTHER ==
[2024-05-31 10:12] VITALS: BP 137/85; PULSE 58; RESP 17; TEMP 97.9
--- NOTE | 2024-05-31 14:58 | P.PN ---
Subjective Progress Note Date: 05/31/24 Principal diagnosis: right mastecomty axillary node resection Courtney is a 73 year old status post right breast mastectomy and axillary node resection on 05-26-24. Postoperatively she has done well. She has [address] with 1 having minimal output. Her pathology is pending Lungs: Clear Heart: Regular rate and rhythm Incision: Clean and dry no evidence of seroma Plan: Remove KATARINA drain in the axilla with minimal output Follow-up in 1 week Follow-up sooner any questions or concerns CC: Dr. Estrada Objective - Vital Signs Vital signs: Vital Signs Temp 97.9 F 05/31/24 10:09 Pulse 58 L 05/31/24 10:09 Resp 17 05/31/24 10:09 BP 137/85 05/31/24 10:09 Pulse Ox 99 05/31/24 10:09 FiO2 Intake & Output 05/30/24 05/31/24 05/31/24 18:59 06:59 18:59 Weight 69.853 kg
== END ==
LOC: WWCWWP 09:08
PROVIDERS: ATTEND Surgery
DX: Z90.11 Acquired absence of right breast and nipple (principal); Z91.030 Bee allergy status; Z87.891 Personal history of nicotine dependence

== ENCOUNTER → 2024-06-07 | Outpatient (CLI) | payer MEDICARE, OTHER ==
[2024-06-07 08:16] VITALS: PULSE 55; RESP 17; TEMP 97.7
--- NOTE | 2024-06-10 08:09 | P.BCPO ---
Progress Note - Text Progress Note Date: 06/07/24 05/31/24 Principal diagnosis: right mastecomty axillary node resection Courtney is a 73 year old status post right breast mastectomy and axillary node resection on 05-26-24. Postoperatively she has done well. Feels no cancer in the breast itself. 3 of 4 lymph nodes in the right breast are positive for cancer. 3 of 5 axillary nodes positive for macro metastatic mammary disease. 1 of 2 axillary nodes and additional resection positive. There were 12 nodes removed total and 8 were positive for cancer. The feeling is that there was no specific primary tumor in the right breast. And this may represent a very rare occurrence of contralateral right breast intramammary and right axillary metastatic ductal carcinoma originating from the left breast primary. KATARINA output is approximately 50 cc for 24 hours. Lungs: Clear Heart: Regular rate and rhythm Incision: Clean and dry no evidence of seroma Plan: KATARINA drain in place until the end of the week Follow-up on Thursday Follow-up sooner any questions or concerns Passed arm abduction rest given education and pathology report CC: Dr. Estrada Post Op Education - Post Op Education Post Op Education Provided Date: 06/07/24 - Functional Assessment Performed?: Yes (arm abduction)
== END ==
LOC: WWCWWP 07:45
PROVIDERS: ATTEND Surgery
DX: Z53.9 Procedure and treatment not carried out, unspecified reason (principal)

== ENCOUNTER 2024-06-24 11:33 | Day surgery (SDC) | payer MEDICARE, OTHER ==
[~2024-06-24 11:33] MED LIST changes: -HEPARIN SODIUM,PORCINE/PF 5,000 UNIT/0.5 ML SYRINGE SQ PRN; +HYDROmorphone 0.5 MG/0.5 ML SYRINGE IVP PRN; +MIDAZOLAM 2 MG/2 ML VIAL IV PRN
[2024-06-24 12:16] VITALS: TEMP 98.3
[2024-06-24] MEDS: LACTATED RINGERS 1,000 ML IV SCH (12:24)
[2024-06-24] MEDS: ONDANSETRON 4 MG/2 ML VIAL IVP ONE (12:26)
[2024-06-24] MEDS: DEXAMETHASONE SOD PHOSPHATE 4 MG/ML 1 ML VIAL IV ONE (12:26)
[2024-06-24] MEDS: IV FLUID CONTINUATION 1,000 ML IV ONE (12:28)
[2024-06-24] MEDS ORDERED: fentaNYL (PF) 50 MCG/ML 2 ML AMP ONE (13:27)
[2024-06-24] MEDS ORDERED: PROPOFOL 10 MG/ML 20 ML VIAL IV ONE (13:27)
[2024-06-24] MEDS ORDERED: KETAMINE HCL IN 0.9 % NACL 50 MG/5 ML SYRINGE ONE (13:27)
[2024-06-24] MEDS ORDERED: MIDAZOLAM 2 MG/2 ML VIAL ONE (13:27)
[2024-06-24] MEDS ORDERED: GLYCOPYRROLATE 0.2 MG/ML 2 ML VIAL ONE (13:27)
[2024-06-24] MEDS: SODIUM CHLORIDE 0.9% 50 ML with ceFAZolin 2,000 MG IV ONE (13:41)
[2024-06-24] MEDS: LIDOCAINE 1% INJ 10MG/ML (20 ML MDV) SQ ONE ×2 (13:47)
[2024-06-24] MEDS: HEPARIN SODIUM,PORCINE 100 UNIT/ML 5 ML VIAL IV ONE ×2 (13:49)
--- NOTE | 2024-06-24 14:25 | FL ---
EXAMINATION TYPE: FL guided central line placemt Intraoperative/procedural fluoroscopic services were provided. CLINICAL INDICATION:Female, 73 years old with history of C50.412 BREAST CANCER; , [facility] FINDINGS: Interval placement of right subclavian approach Mediport catheter with distal tip in the re gion of the superior cavoatrial junction. Total fluoroscopy time is 40.8 seconds. DAP: [id number] mGym2 Please see the operative/procedural note for further details. [facility], , 06/24/2024 2:23 PM
--- NOTE | 2024-06-24 14:31 | P.OP ---
Date of Procedure: 06/24/24 Preoperative Diagnosis: breast cancer Postoperative Diagnosis: breast cancer Procedure(s) Performed: mediport insertion Anesthesia: GETA Surgeon: Jake Perkins Pathology: none sent Condition: stable Disposition: PACU Indications for Procedure: breast cancer Operative Findings: none Description of Procedure: Patient was brought to the operative suite where she was cleaned and draped in sterile fashion. A timeout was performed and everyone agreed with the information recited. Next an introducer needle was used to access the right subclavian vein. Next a guidewire was threaded under fluoro. The pocket was anesthetized using local. A pocket was created. A tunneling device was used to communicate from the pocket to the incision. A dilator sheath combo was used over the guidewire under fluoro. The catheter was threaded through the dilator sheath combo. The sheath was removed and an 8 austrian mediport was attached and secured tot he prepectoral fascia. The skin was closed using 4-0 vicryl suture. Fluoro was again used to confirm placement. The port flushed and aspirated well. it was hep locked and the patient was transported to pacu in stable condition.
[2024-06-24 14:37] VITALS: BP 171/83; PULSE 75; RESP 16
== END 2024-06-24 15:10 | disposition home or self-care (01) ==
LOC: OR 11:33
PROVIDERS: ATTEND Surgery
DX: C50.412 Malignant neoplasm of upper-outer quadrant of left female breast (principal); K21.9 Gastro-esophageal reflux disease without esophagitis; I48.91 Unspecified atrial fibrillation; E78.5 Hyperlipidemia, unspecified; Z45.2 Encounter for adjustment and management of vascular access device; Z91.030 Bee allergy status; Z79.899 Other long term (current) drug therapy
CPT/HCPCS: 77001; 36561; J1642; J1100; J2405; J0690; J2003

== ENCOUNTER 2024-07-12 12:35 | Inpatient (IN) | payer MEDICARE, OTHER ==
[2024-07-12] MEDS ORDERED: VANCOMYCIN IV PER PHARMACY 1 EACH MISC MISCELLANE PRN (12:47)
[2024-07-12] MEDS ORDERED: CEFEPIME 2 GM in SODIUM CHLORIDE 0.9% 100 ML IVPB SCH (13:00)
--- NOTE | 2024-07-12 14:07 | ED ---
General Adult HPI - General Chief complaint: Recheck/Abnormal Lab/Rx Stated complaint: Abn labs Time Seen by Provider: 07/12/24 12:46 Source: patient Mode of arrival: ambulatory Limitations: no limitations - History of Present Illness Initial comments: Dictation was produced using [employer] dictation software. please excuse any grammatical, word or spelling errors. Chief Complaint: 73-year-old female presents emergency department from oncology office for fever History of Present Illness: Patient 73-year-old female with past medical history of breast cancer on chemotherapy. Patient was at oncology office for follow-up appointment. She had vitals checked and had a fever. Patient states that she does feels the slight chills. However denies any pain complaints. No cough sore throat runny nose. Patient denies any other sick contacts. The ROS documented in this emergency department record has been reviewed and confirmed by me. Those systems with pertinent positive or negative responses have been documented in the HPI. All other systems are other negative and/or noncontributory. - Related Data Home Medications Medication Instructions Recorded Confirmed Metoprolol Tartrate [Lopressor] 25 mg PO BID 01/24/20 07/21/24 HYDROcodone/APAP 10-325MG [Xenia 1 tab PO HS 05/24/24 07/21/24 10-325] Ondansetron [Zofran] 4 - 8 mg PO Q6H PRN 06/29/24 07/21/24 Simvastatin [Zocor] 20 mg PO HS 06/29/24 07/21/24 Calcium Carbonate/Vitamin D3 1 tab PO DAILY@1700 07/12/24 07/21/24 [Calcium 600 mg-Vit D3 10 mcg (400 Unit)] Gabapentin [Neurontin] 300 mg PO BID 07/12/24 07/21/24 Super B-Complex 1 tab PO DAILY@1700 07/12/24 07/21/24 Allergies Allergy/AdvReac Type Severity Reaction Status Date / Time bee venom protein (honey bee) Allergy Anaphylaxis Verified 07/21/24 12:02 Review of Systems ROS Statement: Those systems with pertinent positive or pertinent negative responses have been documented in the HPI. ROS Other: All systems not noted in ROS Statement are negative. Past Medical History Past Medical History: Atrial Fibrillation, Cancer, Hyperlipidemia Additional Past Medical History / Comment(s): Do Not Use rt Arm for IV or BP- left breast CA with lumpectomy, cookie mastectomy 09/11/19 Diverticulitis w/ perforation, colostomy; reversal developed AFib w/ RVR, pulmonary edema post-op. Diverticulitis, shingles 07/2023 radiation chemo 2002, had echo History of Any Multi-Drug Resistant Organisms: None Reported Past Surgical History: Bowel Resection, Breast Surgery, Cholecystectomy, Tonsillectomy Additional Past Surgical History / Comment(s): L breast lumpectomy 2002. cookie mastectomy Gomez proc w/ Colostomy 09/11/19 and then reversed, Past Anesthesia/Blood Transfusion Reactions: Motion Sickness Additional Past Anesthesia/Blood Transfusion Reaction / Comment(s): Pt has never recieved blood. Past Psychological History: No Psychological Hx Reported Smoking Status: Former smoker Past Alcohol Use History: Occasional - Past Family History Father Family Medical History: Myocardial Infarction ([place]) Additional Family Medical History / Comment(s): Father had a [place] in his 60's, from a post op hip infection at age 73 yrs. No gallbladder disease. Mother Family Medical History: Eye Disorder, Hypertension Additional Family Medical History / Comment(s): Mother had glaucoma, at age 82 yrs. General Exam - General Exam Comments Initial Comments: PHYSICAL EXAM: General Impression: Alert and oriented x3, not in acute distress HEENT: Normocephalic atraumatic, extra-ocular movements intact, pupils equal and reactive to light bilaterally, mucous membranes moist. Cardiovascular: Heart regular rate and rhythm Chest: Able to complete full sentences, no retractions, no tachypnea Abdomen: abdomen soft, non-tender, non-distended, no organomegaly Musculoskeletal: Pulses present and equal in all extremities, no peripheral edema Motor: no focal deficits noted Neurological: CN II-XII grossly intact, no focal motor or sensory deficits noted Skin: Intact with no visualized rashes Psych: Normal affect and mood Limitations: no limitations Course Vital Signs 07/12/24 07/12/24 07/12/24 12:39 15:02 17:05 Temperature 102.8 F H 100.7 F H Pulse Rate 123 H 106 H Respiratory 18 18 Rate Blood Pressure 176/83 121/64 O2 Sat by Pulse 98 98 Oximetry 07/12/24 07/12/24 07/12/24 17:43 19:02 23:58 Temperature 98.9 F Pulse Rate 102 H 114 H 105 H Respiratory 18 18 18 Rate Blood Pressure 111/56 118/85 135/68 O2 Sat by Pulse 97 98 98 Oximetry 07/13/24 07/13/24 03:44 06:02 Temperature 100.4 F H 98.1 F Pulse Rate 105 H 92 Respiratory 14 18 Rate Blood Pressure 107/65 119/65 O2 Sat by Pulse 98 98 Oximetry EKG Findings - EKG Comments: EKG Findings:: My EKG interpretation: Ventricular rate 16, sinus tachycardia,. 147, QRS 77, QTc 399. No MI prolongation, no QTC prolongation, no ST or T-wave changes noted. Overall, this EKG is unremarkable Medical Decision Making - Medical Decision Making Was pt. sent in by a medical professional or institution (, PA, WASH HELPER, urgent care, hospital, or alf...) When possible be specific @ -[No] Did you speak to anyone other than the patient for history (EMS, parent, family, police, friend...)? What history was obtained from this source @ -[No] Did you review nursing and triage notes (agree or disagree)? Why? @ -[I reviewed and agree with nursing and triage notes] Were old charts reviewed (outside hosp., previous admission, EMS record, old EKG, old radiological studies, urgent care reports/EKG's, alf records)? Report findings @ -[No old charts were reviewed] Differential Diagnosis (chest pain, altered mental status, abdominal pain women, abdominal pain men, vaginal bleeding, musculoskeletal, weakness, fever, dyspnea, syncope, headache, dizziness, GI bleed, back pain, seizure, CVA, palpatations, mental health)? @ -Differential Fever: Pneumonia, viral URI, endocarditis, myocarditis, pericarditis, otitis, sinusitis, peritonsillar Abscess, retropharyngeal Abscess, epiglottitis, peritonitis, appendicitis, Candie cystitis, diverticulitis, hepatitis, colitis, UTI, PID, TOA, pyelonephritis, prostatitis, epididymitis, meningitis, encephalitis, pulmonary embolism, CVA, thyroid storm, pancreatitis, adrenal crisis, cavernous sinus thrombosis, this is not meant to be an all-inclusive list. EKG interpreted by me (3pts min.). @ -See above X-rays interpreted by me (1pt min.). @ -Chest x-ray shows no acute processes CT interpreted by me (1pt min.). @ -[None done] U/S interpreted by me (1pt. min.). @ -[None done] What testing was considered but not performed or refused? (CT, X-rays, U/S, labs)? Why? @ -[None] What meds were considered but not given or refused? Why? @ -[None] Was smoking cessation discussed for >3mins.? @ -[No] Were there social determinants of health that impacted care today? How? (Homelessness, low income, unemployed, alcoholism, drug addiction, transportation, low edu. Level, literacy, decrease access to med. care, prison, rehab)? @ -[No] Was there de-escalation of care discussed even if they declined (Discuss DNR or withdrawal of care, Hospice)? DNR status @ -[No] What co-morbidities impacted this encounter? (DM, HTN, Smoking, COPD, CAD, Cancer, CVA, ARF, Chemo, Hep., AIDS, mental health diagnosis, sleep apnea, morbid obesity)? @ -Cancer on chemotherapy Was patient admitted / discharged? Hospital course, mention meds given and route, prescriptions, significant lab abnormalities, going to OR and other pert inent info. @ -73-year-old female sent to the emergency department for fever. Patient currently battling cancer recently had chemotherapy. Seen at oncology office sent to the ER for fever. Leukopenia of 0.6 rest of labs labs otherwise unremarkable. Patient started antibiotics at this point there is no clear cause of what is causing patient's fever. Patient be admitted case discussed with hospitalist for admission. Did you discuss the management of the patient with other professionals (prof polk i.e. , PA, WASH HELPER, lab, RT, psych nurse, marriage and family social worker, skid machine operator, teacher, global chief creative officer, senior case manager)? Give summary @ -See above Was critical care preformed (if so, how long)? @ -[No] Undiagnosed new problem with uncertain prognosis? @ -[No] Drug Therapy requiring intensive monitoring for toxicity (Heparin, Nitro, Insulin, Cardizem)? @ -[No] Were any procedures done? @ -[No] Diagnosis/symptom? Acute, or Chronic, or Acute on Chronic? Uncomplicated (without systemic symptoms) or Complicated (systemic symptoms)? @ -SIRS/sepsis Side effects of treatment? @ -[No] Exacerbation, Progression, or Severe Exacerbation? @ -[No] Poses a threat to life or bodily function? How? (Chest pain, [place], [place], pneumonia, PE, COPD, DKA, ARF, appy, cholecystitis, CVA, Diverticulitis, Homicidal, Olsen icidal, threat to staff... and all critical care pts) @ -yes - Lab Data Result diagrams: 07/14/24 03:26 07/14/24 15:06 Lab Results 07/12/24 07/12/24 07/12/24 Range/Units 14:06 14:06 14:06 WBC 0.6 L* (3.8-10.6) k/uL RBC 4.10 (3.80-5.40) m/uL Hgb 11.7 (11.4-16.0) gm/dL Hct 35.2 (34.0-46.0) % MCV 85.9 (80.0-100.0) fL MCH 28.6 (25.0-35.0) pg MCHC 33.3 (31.0-37.0) g/dL RDW 12.6 (11.5-15.5) % Plt Count 205 (150-450) k/uL MPV 7.2 Neutrophils % % Lymphocytes % WASH HELPER Monocytes % WASH HELPER Eosinophils % WASH HELPER Basophils % WASH HELPER Neutrophils # WASH HELPER Lymphocytes # WASH HELPER Monocytes # WASH HELPER Eosinophils # WASH HELPER Basophils # WASH HELPER Differential Comment Manual Slide Review Performed Polychromasia Present Poikilocytosis (manual Present Anisocytosis (manual) Present PT 11.6 (10.0-12.5) sec INR 1.1 (<1.2) APTT 21.4 L (22.0-30.0) sec Sodium (137-145) mmol/L Potassium (3.5-5.1) mmol/L Chloride (98-107) mmol/L Carbon Dioxide (22-30) mmol/L Anion Gap mmol/L BUN (7-17) mg/dL Creatinine (0.52-1.04) mg/dL Est GFR (CKD-EPI)AfAm (>60 ml/min/1.73 sqM) Est GFR (CKD-EPI)NonAf (>60 ml/min/1.73 sqM) Glucose (74-99) mg/dL Plasma Lactic Acid Bereket (0.7-2.0) mmol/L Calcium (8.4-10.2) mg/dL Total Bilirubin (0.2-1.3) mg/dL AST (14-36) U/L ALT (4-34) U/L Alkaline Phosphatase (38-126) U/L Total Protein (6.3-8.2) g/dL Albumin (3.5-5.0) g/dL Urine Color Yellow Urine Appearance Clear (Clear) Urine pH 6.5 (5.0-8.0) Ur Specific [place] 1.018 (1.001-1.035) Urine Protein Trace H (Negative) Urine Glucose (UA) Negative (Negative) Urine Ketones 1+ H (Negative) Urine Blood Negative (Negative) Urine Nitrite Negative (Negative) Urine Bilirubin Negative (Negative) Urine Urobilinogen <2.0 (<2.0) mg/dL Ur Leukocyte Esterase Negative (Negative) Group A Strep (PCR) (Not Detectd) 07/12/24 07/12/24 07/12/24 Range/Units 14:06 14:06 15:06 WBC (3.8-10.6) k/uL RBC (3.80-5.40) m/uL Hgb (11.4-16.0) gm/dL Hct (34.0-46.0) % MCV (80.0-100.0) fL MCH (25.0-35.0) pg MCHC (31.0-37.0) g/dL RDW (11.5-15.5) % Plt Count (150-450) k/uL MPV Neutrophils % % Lymphocytes % Monocytes % Eosinophils % Basophils % Neutrophils # Lymphocytes # Monocytes # Eosinophils # Basophils # Differential Comment Manual Slide Review Polychromasia Poikilocytosis (manual Anisocytosis (manual) PT (10.0-12.5) sec INR (<1.2) APTT (22.0-30.0) sec Sodium 134 L (137-145) mmol/L Potassium 4.1 (3.5-5.1) mmol/L Chloride 100 (98-107) mmol/L Carbon Dioxide 24 (22-30) mmol/L Anion Gap 10 mmol/L BUN 8 (7-17) mg/dL Creatinine 0.73 (0.52-1.04) mg/dL Est GFR (CKD-EPI)AfAm >90 (>60 ml/min/1.73 sqM) Est GFR (CKD-EPI)NonAf 83 (>60 ml/min/1.73 sqM) Glucose 142 H (74-99) mg/dL Plasma Lactic Acid [place]reket 1.8 (0.7-2.0) mmol/L Calcium 9.9 (8.4-10.2) mg/dL Total Bilirubin 1.1 (0.2-1.3) mg/dL AST 23 (14-36) U/L ALT 22 (4-34) U/L Alkaline Phosphatase 74 (38-126) U/L Total Protein 6.7 (6.3-8.2) g/dL Albumin 4.1 (3.5-5.0) g/dL Urine Color Urine Appearance (Clear) Urine pH (5.0-8.0) Ur Specific [place] (1.001-1.035) Urine Protein (Negative) Urine Glucose (UA) (Negative) Urine Ketones (Negative) Urine Blood (Negative) Urine Nitrite (Negative) Urine Bilirubin (Negative) Urine Urobilinogen (<2.0) mg/dL Ur Leukocyte Esterase (Negative) Group A Strep (PCR) NOT DETECTED (Not Detectd) Disposition Clinical Impression: Fever Disposition: ADMITTED IP TO THIS HOSP Condition: Serious
[2024-07-12] MEDS: VANCOMYCIN 1,250 MG in SODIUM CHLORIDE 0.9% 250 ML IVPB STA (14:25)
[2024-07-12] MEDS: ACETAMINOPHEN TAB 500 MG TAB PO STA (14:26)
--- NOTE | 2024-07-12 14:36 | XR ---
EXAMINATION TYPE: XR chest 2V DATE OF EXAM: 07/12/2024 2:28 PM COMPARISON: Chest radiographs from 08/17/2023 CLINICAL INDICATION: Female, 73 years old with history of fever; TECHNIQUE: XR chest 2V Frontal and lateral views of the chest. FINDINGS: Lungs/Pleura: There is flattening of the diaphragm with increased lucency of the lungs. No evidence o f pneumothorax, pleural effusion or focal consolidation. Pulmonary vascularity: Unremarkable. Heart/mediastinum: Cardiomediastinal silhouette is unremarkable. Atherosclerotic calcifications are seen in the aorta. Musculoskeletal: No acute osseous pathology. Other findings: None Lines/Tubes: Tibtys-g-Weie projecting over the right hemithorax with distal tip at the cavoatrial junction. IMPRESSION: 1. No acute cardiopulmonary disease process. 2. COPD changes. [facility], , 07/12/2024 2:34 PM
[2024-07-12 14:48] LABS: Appearance,Urine Clear (Clear); Bilirubin,Urine Negative (Negative); Blood,Urine Negative (Negative); Color,Urine Yellow; Glucose,Urine (UA) Negative (Negative); Ketones,Urine 1+ (Negative); Leukocyte Esterase,Urine Negative (Negative); Nitrite,Urine Negative (Negative); PH, Urine 6.5 (5.0-8.0); Protein,Urine Trace (Negative); Specific Gravity,Urine 1.018 (1.001-1.035); Urobilinogen,Urine <2.0 mg/dL (<2.0)
[2024-07-12 14:54] LABS: ALT 22 U/L (4-34); AST 23 U/L (14-36); African American GFR (CKD) >90 (>60 ml/min/1.73 sqM); Albumin 4.1 g/dL (3.5-5.0); Alkaline Phosphatase 74 U/L (38-126); Anion Gap 10 mmol/L; Blood Urea Nitrogen 8 mg/dL (7-17); Calcium 9.9 mg/dL (8.4-10.2); Carbon Dioxide 24 mmol/L (22-30); Chloride 100 mmol/L (98-107); Glucose 142 mg/dL (74-99); Non-African American GFR(CKD) 83 (>60 ml/min/1.73 sqM); Potassium 4.1 mmol/L (3.5-5.1); Sodium 134 mmol/L (137-145); Total Bilirubin 1.1 mg/dL (0.2-1.3); Total Protein 6.7 g/dL (6.3-8.2)
[2024-07-12 15:06] LABS: HCT 35.2 % (34.0-46.0); HGB 11.7 gm/dL (11.4-16.0); MCH 28.6 pg (25.0-35.0); MCHC 33.3 g/dL (31.0-37.0); MCV 85.9 fL (80.0-100.0); Mean Platelet Volume 7.2; Platelet Count 205 k/uL (150-450); RDW 12.6 % (11.5-15.5)
[2024-07-12] MEDS ORDERED: NALOXONE 0.4 MG/ML 1 ML VIAL IV PRN (15:16)
[2024-07-12 15:17] LABS: INR 1.1 (<1.2); Prothrombin Time 11.6 sec (10.0-12.5)
[2024-07-12 15:22] LABS: WBC 0.6 k/uL (3.8-10.6)
[2024-07-12 15:25] LABS: Partial Thromboplastin Time 21.4 sec (22.0-30.0)
[2024-07-12 16:35] LABS: Anisocytosis (M) Present; Poikilocytosis (M) Present; Polychromasia Present
[2024-07-12] MEDS: CEFEPIME 2 GM in SODIUM CHLORIDE 0.9% 100 ML IVPB SCH ×2 (16:57→23:57)
[2024-07-12] MEDS: SODIUM CHLORIDE 0.9% 1,000 ML IV STA (16:59)
[2024-07-12] MEDS: FILGRASTIM-SNDZ 300 MCG/0.5 ML SYRINGE SQ SCH (17:40)
--- NOTE | 2024-07-12 22:50 | P.CONS ---
History of Present Illness - Reason for Consult Consult date: 07/12/24 Febrile neutropenia Requesting physician: Aleksandr Kelly - Chief Complaint Fever and low white count x 1 day - History of Present Illness Patient is a 73-year-old female with a past medical history significant for hyperlipidemia atrial fibrillation left breast cancer status post lumpectomy currently on chemotherapy last chemo has been about 2 weeks ago patient apparently did have a follow-up with her oncologist with the patient was noticed to have a low white count and a fever for the patient was advised to go to the hospital patient did not recall having any fever at home however she did have a temperature of 102.8 F on arrival to the ER patient was tachycardic but not hypotensive or hypoxic patient denies having any headache mild URI symptoms denies any chest pain or shortness with occasional cough did have some nausea but no abdominal pain or any diarrhea patient on arrival to the ER workup including white count of 0.6 creatinine 0.73 electrolytes has been normal liver enzymes are normal urine has been negative influenza RSV COVID testing negative patient did have a chest x-ray no acute cardiopulmonary disease process patient was started on cefepime vancomycin infectious disease was consulted for further management of antibiotic therapy Review of Systems Positive point and negatives has been mentioned in the HPI, complete review of systems was performed and all other systems are negative Past Medical History Past Medical History: Atrial Fibrillation, Cancer, Hyperlipidemia Additional Past Medical History / Comment(s): Do Not Use rt Arm for IV or BP- left breast CA with lumpectomy, cookie mastectomy 09/11/19 Diverticulitis w/ perforation, colostomy; reversal developed AFib w/ RVR, pulmonary edema post-op. Diverticulitis, shingles 07/2023 radiation chemo 2002, had echo History of Any Multi-Drug Resistant Organisms: None Reported Past Surgical History: Bowel Resection, Breast Surgery, Cholecystectomy, Tonsillectomy Additional Past Surgical History / Comment(s): L breast lumpectomy 2002. cookie mastectomy Gomez proc w/ Colostomy 09/11/19 and then reversed, Past Anesthesia/Blood Transfusion Reactions: Motion Sickness Additional Past Anesthesia/Blood Transfusion Reaction / Comm: Pt has never recieved blood. Past Psychological History: No Psychological Hx Reported Smoking Status: Former smoker Past Alcohol Use History: Occasional - Past Family History Father Family Medical History: Myocardial Infarction ([place]) Additional Family Medical History / Comment(s): Father had a [place] in his 60's, from a post op hip infection at age 73 yrs. No gallbladder disease. Mother Family Medical History: Eye Disorder, Hypertension Additional Family Medical History / Comment(s): Mother had glaucoma, at age 82 yrs. Medications and Allergies Home Medications Medication Instructions Recorded Confirmed Type Metoprolol Tartrate [Lopressor] 25 mg PO BID 01/24/20 07/12/24 History HYDROcodone/APAP 10-325MG [B[place] 1 tab PO HS 05/24/24 07/12/24 History 10-325] Ondansetron [Zofran] 4 - 8 mg PO Q6H PRN 06/29/24 07/12/24 History Simvastatin [Zocor] 20 mg PO HS 06/29/24 07/12/24 History Calcium Carbonate/Vitamin D3 1 tab PO DAILY@1700 07/12/24 07/12/24 History [Calcium 600 mg-Vit D3 10 mcg (400 Unit)] Gabapentin [Neurontin] 300 mg PO BID 07/12/24 07/12/24 History Super B-Complex 1 tab PO DAILY@1700 07/12/24 07/12/24 History Allergies Allergy/AdvReac Type Severity Reaction Status Date / Time bee venom protein (honey bee) Allergy Anaphylaxis Verified 07/12/24 14:44 Physical Exam Vitals: Vital Signs Temp Pulse Resp BP Pulse Ox 07/12/24 12:39 102.8 F H 123 H 18 176/83 98 Intake and Output 07/11/24 07/12/24 07/12/24 22:59 06:59 14:59 Other: Weight 68.946 kg GENERAL DESCRIPTION: Elderly female lying in bed, no distress. No tachypnea or accessory muscle of respiration use. HEENT: Shows Pallor , no scleral icterus. Oral mucous membrane is dry. No pharyngeal erythema or thrush NECK: Trachea central, no thyromegaly. LUNGS: Unlabored breathing. Clear to auscultation anteriorly. No wheeze or crackle. HEART: S1, S2, regular rate and rhythm. No loud murmur ABDOMEN: Soft, no tenderness , guarding or rigidity, no organomegaly EXTREMITIES: No edema of feet. SKIN: No rash, no masses palpable. NEUROLOGICAL: The patient is awake, alert, oriented x3, mood and affect normal. Results CBC & Chem 7: 07/12/24 14:06 07/12/24 14:06 Assessment and Plan (1) Febrile neutropenia Current Visit: Yes Status: Acute Code(s): D70.9 - NEUTROPENIA, UNSPECIFIED; R50.81 - FEVER PRESENTING WITH CONDITIONS CLASSIFIED ELSEWHERE SNOMED Code(s): 958427264 Plan: 1patient presented hospital with a fever and this patient also have a low white count currently undergoing chemotherapy for breast cancer last chemo has been about 2 weeks ago with a fever but no clear focus of infection with initial wo rkup has been negative so far 2-patient we will treat broadly with vancomycin and cefepime while waiting for the culture to finalize Question concern answered We will follow on clinical condition and cultures to further adjust medication if needed Thank you for this consultation we will follow the patient along with you Dictation was produced using [employer] dictation software. please excuse any gram matical, word or spelling errors. Time with Patient: Greater than 30
[2024-07-13] MEDS: ONDANSETRON 4 MG/2 ML VIAL IVP PRN (00:48)
[2024-07-13] MEDS: MELATONIN 5 MG TABLET PO SCH (01:24)
[2024-07-13] MEDS: ACETAMINOPHEN TAB 325 MG TAB PO PRN (03:52)
[2024-07-13] MEDS: VANCOMYCIN 1,250 MG in SODIUM CHLORIDE 0.9% 250 ML IVPB SCH (03:57)
[2024-07-13 06:11] LABS: HCT 31.3 % (34.0-46.0); HGB 10.3 gm/dL (11.4-16.0); MCH 28.6 pg (25.0-35.0); MCV 86.7 fL (80.0-100.0); Mean Platelet Volume 7.4; Platelet Count 214 k/uL (150-450); RBC 3.61 m/uL (3.80-5.40); RDW 12.7 % (11.5-15.5)
[2024-07-13 06:24] LABS: ALT 21 U/L (4-34); AST 22 U/L (14-36); African American GFR (CKD) >90 (>60 ml/min/1.73 sqM); Albumin 3.3 g/dL (3.5-5.0); Alkaline Phosphatase 57 U/L (38-126); Anion Gap 8 mmol/L; Blood Urea Nitrogen 9 mg/dL (7-17); Calcium 9.1 mg/dL (8.4-10.2); Carbon Dioxide 22 mmol/L (22-30); Chloride 104 mmol/L (98-107); Glucose 105 mg/dL (74-99); Non-African American GFR(CKD) 90 (>60 ml/min/1.73 sqM); Potassium 3.4 mmol/L (3.5-5.1); Sodium 134 mmol/L (137-145); Total Bilirubin 1.1 mg/dL (0.2-1.3); Total Protein 5.7 g/dL (6.3-8.2)
[2024-07-13 07:11] LABS: WBC 1.1 k/uL (3.8-10.6)
[2024-07-13 08:02] LABS: C Reactive Protein 32.1 mg/dL (<1.0)
[2024-07-13 11:30] LABS: Neutrophils % (M) 7 %
[2024-07-13] MEDS: CALCIUM CARBONATE 500 MG CHEWABLE PO PRN (11:40)
[2024-07-13 11:57] LABS: Band Neutrophils % 7 %; Lymphocytes # (M) 0.61 k/uL (1.0-4.8); Monocytes # (M) 0.34 k/uL (0-1.0)
[2024-07-13 11:58] LABS: Metamyelocytes # (M) 0.01 k/uL (0); Metamyelocytes % 1 %; Myelocytes # (M) 0.01 k/uL (0); Myelocytes % 1 %; Nucleated Red Blood Cells 2 /100 WBC (0-0); Total Cells Counted 200
[2024-07-13 11:59] LABS: RBC Morphology Normal
[2024-07-13] MEDS: SALT AND SODA MOUTHWASH 1,000 ML PO SCH (13:26)
--- NOTE | 2024-07-13 13:48 | P.HPIM ---
History of Present Illness H&P Date: 07/13/24 Courtney Castellano, is a 73-year-old female patient who was sent to ER from oncology office with concerns of fever and leukopenia. Patient currently receiving chemotherapy for breast cancer and was at a follow-up appointment with her oncologist when she was noted to have a fever. Patient reports that she has had poor appetite nausea and chills at home denies any chest pain or shortness of breath. Denies cough or runny nose. Patient has a past medical history of atrial fibrillation, bilateral mastectomy, shingles, hyperlipidemia and diverticulitis with perforation. Chest x-ray completed showing no acute cardiopulmonary disease. EKG completed showing sinus tachycardia. Lab work completed showing white blood cell 0.6, lactic acid 1.8 UA negative. Influenza, COVID-19 and strep negative. At this time patient will be admitted. Blood culture ordered oncology and infectious disease services have been consulted. Patient started on IV vancomycin and IV Maxipime. Current vital signs temp 100.7, heart rate 18, blood pressure 111/57 with a pulse ox of 97% on room air. Review of Systems Please refer to HPI otherwise unremarkable Past Medical History Past Medical History: Atrial Fibrillation, Cancer, Hyperlipidemia Additional Past Medical History / Comment(s): Do Not Use rt Arm for IV or BP- l eft breast CA with lumpectomy, cookie mastectomy 09/11/19 Diverticulitis w/ perforation, colostomy; reversal developed AFib w/ RVR, pulmonary edema post-op. Diverticulitis, shingles 07/2023 radiation chemo 2002, had echo History of Any Multi-Drug Resistant Organisms: None Reported Past Surgical History: Bowel Resection, Breast Surgery, Cholecystectomy, Tonsillectomy Additional Past Surgical History / Comment(s): L breast lumpectomy 2002. cookie mastectomy Gomez proc w/ Colostomy 09/11/19 and then reversed, Past Anesthesia/Blood Transfusion Reactions: Motion Sickness Additional Past Anesthesia/Blood Transfusion Reaction / Comment(s): Pt has never recieved blood. Past Psychological History: No Psychological Hx Reported Smoking Status: Former smoker Past Alcohol Use History: Occasional - Past Family History Father Family Medical History: Myocardial Infarction ([place]) Additional Family Medical History / Comment(s): Father had a [place] in his 60's, from a post op hip infection at age 73 yrs. No gallbladder disease. Mother Family Medical History: Eye Disorder, Hypertension Additional Family Medical History / Comment(s): Mother had glaucoma, at age 82 yrs. Medications and Allergies Home Medications Medication Instructions Recorded Confirmed Type RX: Metoprolol Tartrate [Lopressor] 25 mg PO BID 01/24/20 07/12/24 History HYDROcodone/APAP 10-325MG [[place] 1 tab PO HS 05/24/24 07/12/24 History 10-325] Ondansetron [Zofran] 4 - 8 mg PO Q6H PRN 06/29/24 07/12/24 History RX: Simvastatin [Zocor] 20 mg PO HS 06/29/24 07/12/24 History Calcium Carbonate/Vitamin D3 1 tab PO DAILY@1700 07/12/24 07/12/24 History [Calcium 600 mg-Vit D3 10 mcg (400 Unit)] Gabapentin [Neurontin] 300 mg PO BID 07/12/24 07/12/24 History Super B-Complex 1 tab PO DAILY@1700 07/12/24 07/12/24 History Allergies Allergy/AdvReac Type Severity Reaction Status Date / Time bee venom protein (honey bee) Allergy Anaphylaxis Verified 07/12/24 14:44 Physical Exam Vitals: Vital Signs Temp Pulse Pulse Resp BP BP Pulse Ox 07/13/24 07:44 98 F 63 18 116/68 97 07/13/24 06:02 98.1 F 92 18 119/65 98 07/13/24 03:44 100.4 F H 105 H 14 107/65 98 07/12/24 23:58 105 H 18 135/68 98 07/12/24 19:02 98.9 F 114 H 18 118/85 98 07/12/24 17:43 102 H 18 111/56 97 07/12/24 17:05 100.7 F H 07/12/24 15:02 106 H 18 121/64 98 07/12/24 12:39 102.8 F H 123 H 18 176/83 98 Head normocephalic Neck supple Lungs clear to auscultation bilaterally no wheezing or crackles Heart regular rate and rhythm S1-S2, no rub or gallop Abdomen is soft nontender nondistended positive bowel sounds no hepatosplenomegaly Extremities no edema Neuro alert and orientated to 3 Results CBC & Chem 7: 07/13/24 05:38 07/13/24 05:38 Labs: Abnormal Lab Results - Last 24 Hours (Table) 07/12/24 07/12/24 07/12/24 Range/Units 14:06 14:06 14:06 WBC 0.6 L* (3.8-10.6) k/uL RBC (3.80-5.40) m/uL Hgb (11.4-16.0) gm/dL Hct (34.0-46.0) % APTT 21.4 L (22.0-30.0) sec Sodium (137-145) mmol/L Potassium (3.5-5.1) mmol/L Glucose (74-99) mg/dL C-Reactive Protein (<1.0) mg/dL Total Protein (6.3-8.2) g/dL Albumin (3.5-5.0) g/dL Urine Protein Trace H (Negative) Urine Ketones 1+ H (Negative) 07/12/24 07/13/24 07/13/24 Range/Units 14:06 05:38 05:38 WBC 1.1 L* (3.8-10.6) k/uL RBC 3.61 L (3.80-5.40) m/uL Hgb 10.3 L (11.4-16.0) gm/dL Hct 31.3 L (34.0-46.0) % APTT (22.0-30.0) sec Sodium 134 L 134 L (137-145) mmol/L Potassium 3.4 L (3.5-5.1) mmol/L Glucose 142 H 105 H (74-99) mg/dL C-Reactive Protein 32.1 H (<1.0) mg/dL Total Protein 5.7 L (6.3-8.2) g/dL Albumin 3.3 L (3.5-5.0) g/dL Urine Protein (Negative) Urine Ketones (Negative) Assessment and Plan Assessment: 1. Neutropenia with fever 2. Breast cancer currently receiving chemotherapy. 3. History of essential hypertension 4. History of hyperlipidemia 5. History of diverticulitis with perforation 6. History of GERD DVT prophylaxis Lovenox. GI prophylaxis Protonix Oncology and infectious disease services consulted Blood culture ordered Patient started on IV antibiotics repeat labs ordered for a.m. Time with Patient: Greater than 30 (Greater than 60% of the total time spent in counseling and coordination of care)
--- NOTE | 2024-07-13 13:50 | P.PN ---
Subjective Progress Note Date: 07/13/24 Courtney Castellano, is a 73-year-old female patient who was sent to ER from oncology office with concerns of fever and leukopenia. Patient currently receiving chemotherapy for breast cancer and was at a follow-up appointment with her oncologist when she was noted to have a fever. Patient reports that she has had poor appetite nausea and chills at home denies any chest pain or shortness of breath. Denies cough or runny nose. Patient has a past medical history of atrial fibrillation, bilateral mastectomy, shingles, hyperlipidemia and diverticulitis with perforation. Chest x-ray completed showing no acute cardiopulmonary disease. EKG completed showing sinus tachycardia. Lab work completed showing white blood cell 0.6, lactic acid 1.8 UA negative. Influenza, COVID-19 and strep negative. At this time patient will be admitted. Blood culture ordered oncology and infectious disease services have been consulted. Patient started on IV vancomycin and IV Maxipime. Current vital signs temp 100.7, heart rate 18, blood pressure 111/57 with a pulse ox of 97% on room air. On 07/13/2024 patient is alert and oriented x 3 currently sitting in bed. Patient is complaining of some nausea. Patient denies chest pain or shortness of breath. Patient denies any urinary burning or frequency. Home medications have been resumed. Current vital signs temp 98.9, heart rate 105, blood pressure 104/66 with pulse ox of 98% on room air. Patient remains on IV vancomycin and IV Maxipime repeat labs ordered for a.m. Objective - Vital Signs Vital signs: Vital Signs Temp 98.8 F 07/13/24 12:25 Pulse 98 07/13/24 12:25 Resp 18 07/13/24 12:25 BP 104/66 07/13/24 12:25 Pulse Ox 98 07/13/24 12:25 FiO2 Intake & Output 07/12/24 07/13/24 07/13/24 18:59 06:59 18:59 Weight 68.946 kg - Exam Head normocephalic Neck supple Lungs clear to auscultation bilaterally no wheezing or crackles Heart regular rate and rhythm S1-S2, no rub or gallop Abdomen is soft nontender nondistended positive bowel sounds no hepatosplenomegaly Extremities no edema Neuro alert and orientated to 3 - Labs CBC & Chem 7: 07/13/24 05:38 07/13/24 05:38 Labs: Abnormal Lab Results - Last 24 Hours (Table) 07/12/24 07/12/24 07/12/24 Range/Units 14:06 14:06 14:06 WBC 0.6 L* (3.8-10.6) k/uL RBC (3.80-5.40) m/uL Hgb (11.4-16.0) gm/dL Hct (34.0-46.0) % Neutrophils # (Manual) (1.3-7.7) k/uL Lymphocytes # (Manual) (1.0-4.8) k/uL Metamyelocytes # (Man) (0) k/uL Myelocytes # (Manual) (0) k/uL Nucleated RBCs (0-0) /100 WBC APTT 21.4 L (22.0-30.0) sec Sodium (137-145) mmol/L Potassium (3.5-5.1) mmol/L Glucose (74-99) mg/dL C-Reactive Protein (<1.0) mg/dL Total Protein (6.3-8.2) g/dL Albumin (3.5-5.0) g/dL Urine Protein Trace H (Negative) Urine Ketones 1+ H (Negative) 07/12/24 07/13/24 07/13/24 Range/Units 14:06 05:38 05:38 WBC 1.1 L* (3.8-10.6) k/uL RBC 3.61 L (3.80-5.40) m/uL Hgb 10.3 L (11.4-16.0) gm/dL Hct 31.3 L (34.0-46.0) % Neutrophils # (Manual) 0.10 L* (1.3-7.7) k/uL Lymphocytes # (Manual) 0.61 L (1.0-4.8) k/uL Metamyelocytes # (Man) 0.01 H (0) k/uL Myelocytes # (Manual) 0.01 H (0) k/uL Nucleated RBCs 2 H (0-0) /100 WBC APTT (22.0-30.0) sec Sodium 134 L 134 L (137-145) mmol/L Potassium 3.4 L (3.5-5.1) mmol/L Glucose 142 H 105 H (74-99) mg/dL C-Reactive Protein 32.1 H (<1.0) mg/dL Total Protein 5.7 L (6.3-8.2) g/dL Albumin 3.3 L (3.5-5.0) g/dL Urine Protein (Negative) Urine Ketones (Negative) Assessment and Plan Assessment: 1. Neutropenia with fever 2. Breast cancer currently receiving chemotherapy. 3. History of essential hypertension 4. History of hyperlipidemia 5. History of diverticulitis with perforation 6. History of GERD DVT prophylaxis Lovenox. GI prophylaxis Protonix Oncology and infectious disease services consulted Blood culture ordered Patient started on IV antibiotics repeat labs ordered for a.m.
[2024-07-13] MEDS: CALCIUM CARB-VIT D 500 MG-5 MCG TAB PO SCH (18:17)
[2024-07-13] MEDS: GABAPENTIN 300 MG CAP PO SCH (21:45)
[2024-07-13] MEDS: ATORVASTATIN 10 MG TAB PO SCH (21:45)
[2024-07-13] MEDS: METOPROLOL TARTRATE 25 MG TAB PO SCH (21:45)
[2024-07-13] MEDS: HYDROcodone/APAP 10-325MG 1 EACH TAB PO SCH (21:46)
--- NOTE | 2024-07-14 00:07 | P.CONS ---
History of Present Illness - Reason for Consult Consult date: 07/13/24 neutropenic fever Requesting physician: Aleksandr Kelly - Chief Complaint fever - History of Present Illness Mrs. Castellano is a 73-year-old female patient of Dr. Espino with a known history of left breast cancer diagnosed in 2002, hormone receptor negative, treated with A/C x 4, radiation to the breast. No evidence of disease. Patient did well, after 2016 she did not follow-up, was seen in March 2022 when she had an or abnormal mammogram of the left breast. She had stereotactic biopsy 02/27/2022 revealing multifocal, microinvasive carcinoma 1.5 mm, background of high-grade DCIS, ER/NM positive, HER2/delvin negative. Patient decided to proceed to surgery, she had mastectomy 05/15/2022. Final pathology showed IDC, high-grade DCIS, largest focus of IDC was 9 mm, DCIS 1.2 cm. There was a separate focus of invasive cancer less than 1 mm. All negative margins except for the invasive DCIS. No lymph nodes identified in the soft tissue. Oncotype revealed score of 21, less than 1% benefit from chemotherapy. Breast next testing revealed variation of unknown significance of the BRCA2 gene. She was started on anastrozole, calcium and vitamin D. She had a suspicious lesion noted on routine mammogram, confirmed by ultrasound in March 2024. There was a 1.3 cm mass at 8:00, 1.2 cm mass at 12:00. She had core biopsy of both on March 09, 2024. The 8:00 lesion revealed isolated carcinoma cells in the lymph node. ER staining was negative. The 12:00 lesion was a sclerotic fibroadenoma. She had an MRI of the breast confirming malignant appearance of the biopsy 8:00 lesion and a suspicious lymph node with cortical thickening of the right axilla. PET scan showed borderline uptake in the right axillary nodes with an SUV of 2.1, 8:00 lesion SUV 1.7. No evidence of metastatic disease. Biopsy of the right axillary node 03/24/2024 showed macro metastatic ductal carcinoma, ER/NM positive, Ki-67 was 20 to 30%, HER2 negative at 1+ IHC. Case was discussed at tumor board, on radiology review at that time apparently there was possibility of some vague nodularity in the right breast although this was not definitive. Therefore , at the time of her follow-up in the office on 04/22/24, there was no obvious primary on the right seen. The patient had no symptoms and has not felt any abnormality in the right breast. Patient proceeded to mastectomy with sentinel node and axillary node dissection 05/26/2024. Final pathology revealed 4 out of 7 axillary nodes was to for macrometastatic carcinoma, as well as 3 out of 4 lymph nodes from the lateral aspect of the mastectomy as well as 1 intramammary lymph node positive for micrometastatic invasive ductal carcinoma. The case was reviewed with her prior biopsy, as well as the left mastectomy specimen, and these are felt to represent the same tumor, most likely. The patient therefore appeared to have stage IV disease, localize to multiple lymph nodes in the contralateral breast and axilla only, completely removed with surgery. It was therefore recommended that she be treated definitively with adjuvant chemotherapy given the development of recurrence while on anastrozole followed by more aggressive hormonal manipulation with AI/CDK 4/6 inhibitor. The plan was agreed to at the tumor board discussion. The patient was also referred to the [facility] for another opinion, but decided against that. She was agreeable to the above plan but initially wanted to delay treatment after a planned trip to [place]. She was contacted, and after discussion, agreed to start treatment which was initiated with e pirubicin plus Cytoxan, given her prior exposure to Adriamycin. Baseline echocardiogram was negative. She is status post 1 cycle of EC, starting at on 06/29/24. At her follow-up on 07/12/24, she had a fever of 102F, and was also experiencing chills. She reported ongoing nausea which was actually responding better to antacid. She had decreased appetite and some fatigue. She was developing some early mouth sores. Patient was sent to the emergency department for pancultures, antibiotics, fluids and supportive medications. When seen today the patient reports that her chills are resolved, oral irritation is mild, her vital signs have been stable, she denies any vomiting or diarrhea, chest merrill n, abdominal pain or swelling. Review of Systems 10 point ROS is neg except as stated in HPI Past Medical History Past Medical History: Atrial Fibrillation, Cancer, Hyperlipidemia Additional Past Medical History / Comment(s): Do Not Use rt Arm for IV or BP- left breast CA with lumpectomy, cookie mastectomy 09/11/19 Diverticulitis w/ perforation, colostomy; reversal developed AFib w/ RVR, pulmonary edema post-op. Diverticulitis, shingles 07/2023 radiation chemo 2002, had echo History of Any Multi-Drug Resistant Organisms: None Reported Past Surgical History: Bowel Resection, Breast Surgery, Cholecystectomy, Tonsillectomy Additional Past Surgical History / Comment(s): L breast lumpectomy 2002. cookie mastectomy Gomez proc w/ Colostomy 09/11/19 and then reversed, Past Anesthesia/Blood Transfusion Reactions: Motion Sickness Additional Past Anesthesia/Blood Transfusion Reaction / Comm: Pt has never recieved blood. Past Psychological History: No Psychological Hx Reported Smoking Status: Former smoker Past Alcohol Use History: Occasional - Past Family History Father Family Medical History: Myocardial Infarction ([place]) Additional Family Medical History / Comment(s): Father had a [place] in his 60's, from a post op hip infection at age 73 yrs. No gallbladder disease. Mother Family Medical History: Eye Disorder, Hypertension Additional Family Medical History / Comment(s): Mother had glaucoma, at age 82 yrs. Medications and Allergies Home Medications Medication Instructions Recorded Confirmed Type Metoprolol Tartrate [Lopressor] 25 mg PO BID 01/24/20 07/12/24 History HYDROcodone/APAP 10-325MG [[place] 1 tab PO HS 05/24/24 07/12/24 History 10-325] Ondansetron [Zofran] 4 - 8 mg PO Q6H PRN 06/29/24 07/12/24 History Simvastatin [Zocor] 20 mg PO HS 06/29/24 07/12/24 History Calcium Carbonate/Vitamin D3 1 tab PO DAILY@1700 07/12/24 07/12/24 History [Calcium 600 mg-Vit D3 10 mcg (400 Unit)] Gabapentin [Neurontin] 300 mg PO BID 07/12/24 07/12/24 History Super B-Complex 1 tab PO DAILY@1700 07/12/24 07/12/24 History Allergies Allergy/AdvReac Type Severity Reaction Status Date / Time bee venom protein (honey bee) Allergy Anaphylaxis Verified 07/12/24 14:44 Physical Exam Vitals: Vital Signs Temp Pulse Pulse Resp BP BP Pulse Ox 07/13/24 07:44 98 F 63 18 116/68 97 07/13/24 06:02 98.1 F 92 18 119/65 98 07/13/24 03:44 100.4 F H 105 H 14 107/65 98 07/12/24 23:58 105 H 18 135/68 98 07/12/24 19:02 98.9 F 114 H 18 118/85 98 07/12/24 17:43 102 H 18 111/56 97 07/12/24 17:05 100.7 F H 07/12/24 15:02 106 H 18 121/64 98 07/12/24 12:39 102.8 F H 123 H 18 176/83 98 - Constitutional General appearance: average body habitus, cooperative, no acute distress - EENT Eyes: anicteric sclerae, EOMI ENT: hearing grossly normal, pharyngeal erythema - Neck Neck: no lymphadenopathy - Respiratory Respiratory: bilateral: CTA - Cardiovascular Rhythm: regular Heart sounds: normal: S1, S2 Abnormal Heart Sounds: no systolic murmur, no diastolic murmur, no rub, no S3 Gallop, no S4 Gallop, no click, no other leg Peripheral Edema: bilateral: None - Gastrointestinal General gastrointestinal: no absent bowel sounds, no decreased bowel sounds, no distended, no hepatomegaly, no hyperactive bowel sounds, normal bowel sounds, no organomegaly, no rigid, no scaphoid, soft, no splenomegaly, no tenderness, no umbilical hernia, no ventral hernia - Integumentary Integumentary: normal - Neurologic Neurologic: CNII-XII intact - Musculoskeletal Musculoskeletal: strength equal bilaterally - Psychiatric Psychiatric: A&O x's 3, appropriate affect, intact judgment & insight Results CBC & Chem 7: 07/13/24 05:38 07/13/24 05:38 Labs: Abnormal Lab Results - Last 24 Hours (Table) 07/12/24 07/12/24 07/12/24 Range/Units 14:06 14:06 14:06 WBC 0.6 L* (3.8-10.6) k/uL RBC (3.80-5.40) m/uL Hgb (11.4-16.0) gm/dL Hct (34.0-46.0) % APTT 21.4 L (22.0-30.0) sec Sodium (137-145) mmol/L Potassium (3.5-5.1) mmol/L Glucose (74-99) mg/dL C-Reactive Protein (<1.0) mg/dL Total Protein (6.3-8.2) g/dL Albumin (3.5-5.0) g/dL Urine Protein Trace H (Negative) Urine Ketones 1+ H (Negative) 07/12/24 07/13/24 07/13/24 Range/Units 14:06 05:38 05:38 WBC 1.1 L* (3.8-10.6) k/uL RBC 3.61 L (3.80-5.40) m/uL Hgb 10.3 L (11.4-16.0) gm/dL Hct 31.3 L (34.0-46.0) % APTT (22.0-30.0) sec Sodium 134 L 134 L (137-145) mmol/L Potassium 3.4 L (3.5-5.1) mmol/L Glucose 142 H 105 H (74-99) mg/dL C-Reactive Protein 32.1 H (<1.0) mg/dL Total Protein 5.7 L (6.3-8.2) g/dL Albumin 3.3 L (3.5-5.0) g/dL Urine Protein (Negative) Urine Ketones (Negative) Chest x-ray: report reviewed Assessment and Plan (1) Febrile neutropenia Current Visit: Yes Status: Acute Priority: High Code(s): D70.9 - NEUTROPENIA, UNSPECIFIED; R50.81 - FEVER PRESENTING WITH CONDITIONS CLASSIFIED ELSEWHERE SNOMED Code(s): 026925053 (2) Breast cancer Current Visit: Yes Status: Acute Priority: High Code(s): C50.919 - MALIGNANT NEOPLASM OF UNSP SITE OF UNSPECIFIED FEMALE BREAST SNOMED Code(s): 331993315 Plan: Febrile neutropenia. -Pancultures pending.Viral panel negative -Empiric antibiotics have been ordered. -G-CSF has been initiated -Infectious disease consulted -Salt and soda ordered for oral irritation -Clear liquid diet while severely neutropenic -Supportive care Breast cancer -Diagnosis and treatment as described in HPI -Patient is currently on adjuvant treatment -Plans for dose modification and addition of G-CSF with future treatments -Treatment will be on hold until patient has recovered from her acute condition Doctor attests: I performed a history and physical examination of this patient, developed impression and plan of care. Discussed with dictator. I agree with dictators note, documented as a scribe.
[2024-07-14 07:37] VITALS: RESP 20
[2024-07-14] MEDS: PANTOPRAZOLE 40 MG TABLET PO SCH (08:40)
[2024-07-14] MEDS: ENOXAPARIN 40 MG/0.4 ML SYRINGE SQ SCH (08:41)
[2024-07-14 08:45] LABS: ALT 21 U/L (8-44); AST 23 U/L (13-35); Albumin 3.3 g/dL (3.8-4.9); Alkaline Phosphatase 61 U/L (41-126); BUN/Creat Ratio 11.62 Ratio (12.00-20.00); Blood Urea Nitrogen 9.3 mg/dL (9.0-27.0); Calcium 9.5 mg/dL (8.7-10.3); Carbon Dioxide 24.9 mmol/L (21.6-31.8); Chloride 107 mmol/L (96-109); Globulin 2.2 g/dL (1.6-3.3); Glucose 82 mg/dL (70-110); Potassium 4.1 mmol/L (3.5-5.5); Sodium 141 mmol/L (135-145); Total Bilirubin 0.4 mg/dL (0.3-1.2); Total Protein 5.5 g/dL (6.2-8.2)
--- NOTE | 2024-07-14 09:14 | P.PN ---
Subjective Progress Note Date: 07/14/24 Courtney Castellano, is a 73-year-old female patient who was sent to ER from oncology office with concerns of fever and leukopenia. Patient currently receiving chemotherapy for breast cancer and was at a follow-up appointment with her oncologist when she was noted to have a fever. Patient reports that she has had poor appetite nausea and chills at home denies any chest pain or shortness of breath. Denies cough or runny nose. Patient has a past medical history of atrial fibrillation, bilateral mastectomy, shingles, hyperlipidemia and diverticulitis with perforation. Chest x-ray completed showing no acute cardiopulmonary disease. EKG completed showing sinus tachycardia. Lab work completed showing white blood cell 0.6, lactic acid 1.8 UA negative. Influenza, COVID-19 and strep negative. At this time patient will be admitted. Blood culture ordered oncology and infectious disease services have been consulted. Patient started on IV vancomycin and IV Maxipime. Current vital signs temp 100.7, heart rate 18, blood pressure 111/57 with a pulse ox of 97% on room air. On 07/13/2024 patient is alert and oriented x 3 currently sitting in bed. Patient is complaining of some nausea. Patient denies chest pain or shortness of breath. Patient denies any urinary burning or frequency. Home medications have been resumed. Current vital signs temp 98.9, heart rate 105, blood pressure 104/66 with pulse ox of 98% on room air. Patient remains on IV vancomycin and IV Maxipime repeat labs ordered for a.m. On 07/14/2024 patient is alert and oriented x 3 currently sitting up in chair. Patient reports significant improvement with symptoms. Patient remains on IV Maxipime and IV vancomycin. Oncology and infectious disease services are following. Current vital signs temp 98.5, heart rate 93, respiratory rate 20, blood pressure 108/63 with a pulse ox of 96% on room air. Patient denies chest pain or shortness of breath. Patient denies nausea vomiting or diarrhea. Patient denies any urinary burning or frequency Objective - Vital Signs Vital signs: Vital Signs Temp 98.5 F 07/14/24 07:29 Pulse 93 07/14/24 07:29 Resp 20 07/14/24 07:29 BP 108/63 07/14/24 07:29 Pulse Ox 96 07/14/24 07:29 FiO2 Intake & Output 07/13/24 07/14/24 07/14/24 18:59 06:59 18:59 Intake Total 890 Balance 890 Weight 68.946 kg Intake: Intake, IV Titration 350 Amount Cefepime 2 gm In Sodium 100 Chloride 0.9% 100 ml @ 25 mls/hr IVPB Q8HR WILLIAM Rx# :[id number] Vancomycin 1,250 mg In 250 Sodium Chloride 0.9% 250 ml @ 125 mls/hr IVPB Q12H WILLIAM Rx#:[id number] Oral 540 Other: Voiding Method Toilet # Voids 2 2 - Exam Head normocephalic Neck supple Lungs clear to auscultation bilaterally no wheezing or crackles Heart regular rate and rhythm S1-S2, no rub or gallop Abdomen is soft nontender nondistended positive bowel sounds no hepatosplenomegaly Extremities no edema Neuro alert and orientated to 3 - Labs CBC & Chem 7: 07/13/24 05:38 07/14/24 03:26 Labs: Abnormal Lab Results - Last 24 Hours (Table) 07/13/24 07/14/24 Range/Units 05:38 03:26 Neutrophils # (Manual) 0.10 L* (1.3-7.7) k/uL Lymphocytes # (Manual) 0.61 L (1.0-4.8) k/uL Metamyelocytes # (Man) 0.01 H (0) k/uL Myelocytes # (Manual) 0.01 H (0) k/uL Nucleated RBCs 2 H (0-0) /100 WBC BUN/Creatinine Ratio 11.62 L (12.00-20.00) Ratio Total Protein 5.5 L (6.2-8.2) g/dL Albumin 3.3 L (3.8-4.9) g/dL Albumin/Globulin Ratio 1.50 L (1.60-3.17) Ratio Microbiology - Last 24 Hours (Table) 07/12/24 14:06 Blood Culture - Preliminary Blood Assessment and Plan Assessment: 1. Neutropenia with fever 2. Breast cancer currently receiving chemotherapy. 3. History of essential hypertension 4. History of hyperlipidemia 5. History of diverticulitis with perforation 6. History of GERD DVT prophylaxis Lovenox. GI prophylaxis Protonix Oncology and infectious disease services consulted Blood culture ordered Patient started on IV antibiotics repeat labs ordered for a.m.
[2024-07-14 09:48] LABS: Basophils # (A) 0.05 X 10*3/uL (0.00-0.10); Eosinophils # (A) 0.05 X 10*3/uL (0.04-0.35); HCT 31.4 % (37.2-46.3); HGB 10.2 g/dL (12.0-15.0); Lymphocytes # (A) 0.64 X 10*3/uL (0.90-5.00); Lymphocytes % (A) 13.3 %; MCH 28.4 pg (27.0-32.0); MCHC 32.5 g/dL (32.0-37.0); MCV 87.5 FL (80.0-97.0); Mean Platelet Volume 10.2 FL (9.5-12.2); Monocytes # (A) 1.02 X 10*3/uL (0.20-1.00); Monocytes % (A) 21.1 %; NRBC Per 100 WBC 0.02 X 10*3/uL (0.00-0.01); Neutrophils # (A) 2.94 X 10*3/uL (1.80-7.70); Neutrophils % (A) 60.9 %; Platelet Count 279 X 10*3/uL (140-440); RBC 3.59 X 10*6/uL (4.10-5.20); RDW 12.3 % (11.5-14.5); WBC 4.83 X 10*3/uL (4.50-10.00)
[2024-07-14 12:32] VITALS: BP 109/67; PULSE 85; TEMP 99.1
--- NOTE | 2024-07-14 13:05 | P.PN ---
Subjective Progress Note Date: 07/13/24 Principal diagnosis: Reason for follow-up is febrile neutropenia Patient is a 73-year-old female with a past medical history significant for hyperlipidemia atrial fibrillation left breast cancer status post lumpectomy currently on chemotherapy last chemo has been about 2 weeks ago before presentation the hospital admitted with febrile neutropenia with initial workup negative. On today's evaluation that is 07/14/2023 patient did have improving her fever pattern last temperature 100.4 at 3:44 AM patient has been afebrile since then the patient is breathing comfortably no chest pain shortness of breath or cough no abdominal pain no diarrhea. Patient white count is up to 1.1 creatinine 0.63 liver enzymes are normal cultures are pending Objective - Vital Signs Vital signs: Vital Signs Temp 98 F 07/13/24 07:44 Pulse 63 07/13/24 07:44 Resp 18 07/13/24 07:44 BP 116/68 07/13/24 07:44 Pulse Ox 97 07/13/24 07:44 FiO2 Intake & Output 07/12/24 07/13/24 07/13/24 18:59 06:59 18:59 Weight 68.946 kg - Exam GENERAL DESCRIPTION: An elderly female lying in bed in no distress RESPIRATORY SYSTEM: Unlabored breathing , decreased breath sounds at bases HEART: S1 S2 regular rate and rhythm , ABDOMEN: Soft , no tenderness EXTREMITIES: No edema feet - Labs CBC & Chem 7: 07/14/24 03:26 07/14/24 03:26 Labs: Abnormal Lab Results - Last 24 Hours (Table) 07/12/24 07/12/24 07/12/24 Range/Units 14:06 14:06 14:06 WBC 0.6 L* (3.8-10.6) k/uL RBC (3.80-5.40) m/uL Hgb (11.4-16.0) gm/dL Hct (34.0-46.0) % APTT 21.4 L (22.0-30.0) sec Sodium (137-145) mmol/L Potassium (3.5-5.1) mmol/L Glucose (74-99) mg/dL C-Reactive Protein (<1.0) mg/dL Total Protein (6.3-8.2) g/dL Albumin (3.5-5.0) g/dL Urine Protein Trace H (Negative) Urine Ketones 1+ H (Negative) 07/12/24 07/13/24 07/13/24 Range/Units 14:06 05:38 05:38 WBC 1.1 L* (3.8-10.6) k/uL RBC 3.61 L (3.80-5.40) m/uL Hgb 10.3 L (11.4-16.0) gm/dL Hct 31.3 L (34.0-46.0) % APTT (22.0-30.0) sec Sodium 134 L 134 L (137-145) mmol/L Potassium 3.4 L (3.5-5.1) mmol/L Glucose 142 H 105 H (74-99) mg/dL C-Reactive Protein 32.1 H (<1.0) mg/dL Total Protein 5.7 L (6.3-8.2) g/dL Albumin 3.3 L (3.5-5.0) g/dL Urine Protein (Negative) Urine Ketones (Negative) Assessment and Plan (1) Febrile neutropenia Current Visit: Yes Status: Acute Priority: High Code(s): D70.9 - NEUTROPENIA, UNSPECIFIED; R50.81 - FEVER PRESENTING WITH CONDITIONS CLASSIFIED ELSEWHERE SNOMED Code(s): 061404867 Plan: 1patient presented hospital with a fever and this patient also have a low white count currently undergoing chemotherapy for breast cancer last chemo has been about 2 weeks ago with a fever but no clear focus of infection with initial wo rkup has been negative so far 2-patient did have improvement in her fever pattern and Cultures are currently pending we will continue with vancomycin and cefepime while waiting for the culture to finalize Dictation was produced using [email or web address] software. please excuse any grammatical, word or spelling errors. Time with Patient: Less than 30
--- NOTE | 2024-07-14 13:06 | P.PN ---
Subjective Progress Note Date: 07/14/24 Principal diagnosis: Reason for follow-up is febrile neutropenia Patient is a 73-year-old female with a past medical history significant for hyperlipidemia atrial fibrillation left breast cancer status post lumpectomy currently on chemotherapy last chemo has been about 2 weeks ago before presentation the hospital admitted with febrile neutropenia with initial workup negative. On today's evaluation that is 07/15/2023 patient did have resolution of her fever and has been afebrile for more than 24 hours patient overall feeling better did have mild headache no chest pain shortness of breath or cough no abdominal pain did have some diarrhea but no worsening stool output or urinary symptoms. Patient did have a normalization of the white count which is 4.83 creatinine 0.8 electrolytes are normal liver enzymes normal culture negative so far Objective - Vital Signs Vital signs: Vital Signs Temp 99.1 F 07/14/24 12:18 Pulse 85 07/14/24 12:18 Resp 20 07/14/24 12:18 BP 109/67 07/14/24 12:18 Pulse Ox 96 07/14/24 12:18 FiO2 Intake & Output 07/13/24 07/14/24 07/14/24 18:59 06:59 18:59 Intake Total 890 Balance 890 Weight 68.946 kg Intake: Intake, IV Titration 350 Amount Cefepime 2 gm In Sodium 100 Chloride 0.9% 100 ml @ 25 mls/hr IVPB Q8HR [facility] Rx# :[id number] Vancomycin 1,250 mg In 250 Sodium Chloride 0.9% 250 ml @ 125 mls/hr IVPB Q12H [facility] Rx#:[id number] Oral 540 Other: Voiding Method Toilet Toilet # Voids 2 2 - Exam GENERAL DESCRIPTION: An elderly female lying in bed in no distress RESPIRATORY SYSTEM: Unlabored breathing , decreased breath sounds at bases HEART: S1 S2 regular rate and rhythm , ABDOMEN: Soft , no tenderness EXTREMITIES: No edema feet - Labs CBC & Chem 7: 07/14/24 03:26 07/14/24 03:26 Labs: Abnormal Lab Results - Last 24 Hours (Table) 07/14/24 07/14/24 Range/Units 03: 03:26 RBC 3.59 L (4.10-5.20) X 10*6/uL Hgb 10.2 L (12.0-15.0) g/dL Hct 31.4 L (37.2-46.3) % Immature Gran # 0.13 H (0.00-0.04) X 10*3/uL Lymphocytes # 0.64 L (0.90-5.00) X 10*3/uL Monocytes # 1.02 H (0.20-1.00) X 10*3/uL NRBC/100 WBC Diff 0.02 H (0.00-0.01) X 10*3/uL BUN/Creatinine Ratio 11.62 L (12.00-20.00) Ratio Total Protein 5.5 L (6.2-8.2) g/dL Albumin 3.3 L (3.8-4.9) g/dL Albumin/Globulin Ratio 1.50 L (1.60-3.17) Ratio Microbiology - Last 24 Hours (Table) 07/12/24 14:06 Blood Culture - Preliminary Blood Assessment and Plan (1) Febrile neutropenia Current Visit: Yes Status: Acute Priority: High Code(s): D70.9 - NEUTROPENIA, UNSPECIFIED; R50.81 - FEVER PRESENTING WITH CONDITIONS CLASSIFIED ELSEWHERE SNOMED Code(s): 550975070 Plan: 1patient presented hospital with a fever and this patient also have a low white count currently undergoing chemotherapy for breast cancer last chemo has been about 2 weeks ago with a fever but no clear focus of infection with initial workup has been negative so far 2-patient did have resolution of her fever and the patient white count has normalized culture has been negative and no clear focus of infection may consider short course of oral Levaquin on discharge Dictation was produced using [employer] software. please excuse any grammatical, word or spelling errors. Time with Patient: Less than 30
[2024-07-14] MEDS: VANCOMYCIN TROUGH DUE 1 EACH MISC MISCELLANE ONE (15:49)
--- NOTE | 2024-07-14 15:49 | P.PN ---
Subjective Progress Note Date: 07/14/24 Principal diagnosis: febrile neutropenia Pt reports doing very well today, she did have liquid stool x 4 today, mouth irritation is better, no recent fevers, N,V. She is ambulatory Objective - Vital Signs Vital signs: Vital Signs Temp 99.1 F 07/14/24 12:18 Pulse 85 07/14/24 12:18 Resp 20 07/14/24 12:18 BP 109/67 07/14/24 12:18 Pulse Ox 96 07/14/24 12:18 FiO2 Intake & Output 07/13/24 07/14/24 07/14/24 18:59 06:59 18:59 Intake Total 890 Balance 890 Weight 68.946 kg Intake: Intake, IV Titration 350 Amount Cefepime 2 gm In Sodium 100 Chloride 0.9% 100 ml @ 25 mls/hr IVPB Q8HR [facility] Rx# :[id number] Vancomycin 1,250 mg In 250 Sodium Chloride 0.9% 250 ml @ 125 mls/hr IVPB Q12H [facility] Rx#:[id number] Oral 540 Other: Voiding Method Toilet Toilet # Voids 2 2 - Constitutional General appearance: Present: average body habitus, cooperative, no acute distress - EENT Eyes: Present: anicteric sclerae, EOMI ENT: Present: hearing grossly normal, normal oropharynx - Respiratory Respiratory: bilateral: CTA - Cardiovascular Rhythm: regular Heart sounds: normal: S1, S2 Abnormal Heart Sounds: Absent: systolic murmur, diastolic murmur, rub, S3 Gallop, S4 Gallop, click, other - Peripheral edema leg Peripheral Edema: bilateral: None - Gastrointestinal General gastrointestinal: Present: normal bowel sounds, soft. Absent: absent bowel sounds, decreased bowel sounds, distended, hepatomegaly, hyperactive bowel sounds, organomegaly, rigid, scaphoid, splenomegaly, tenderness, umbilical hernia, ventral hernia - Integumentary Integumentary: Present: normal - Neurologic Neurologic: Present: CNII-XII intact - Musculoskeletal Musculoskeletal: Present: strength equal bilaterally - Psychiatric Psychiatric: Present: A&O x's 3, appropriate affect, intact judgment & insight - Labs CBC & Chem 7: 07/14/24 03:26 07/14/24 03:26 Labs: Abnormal Lab Results - Last 24 Hours (Table) 07/14/24 07/14/24 Range/Units 03:26 03:26 RBC 3.59 L (4.10-5.20) X 10*6/uL Hgb 10.2 L (12.0-15.0) g/dL Hct 31.4 L (37.2-46.3) % Immature Gran # 0.13 H (0.00-0.04) X 10*3/uL Lymphocytes # 0.64 L (0.90-5.00) X 10*3/uL Monocytes # 1.02 H (0.20-1.00) X 10*3/uL NRBC/100 WBC Diff 0.02 H (0.00-0.01) X 10*3/uL BUN/Creatinine Ratio 11.62 L (12.00-20.00) Ratio Total Protein 5.5 L (6.2-8.2) g/dL Albumin 3.3 L (3.8-4.9) g/dL Albumin/Globulin Ratio 1.50 L (1.60-3.17) Ratio Microbiology - Last 24 Hours (Table) 07/12/24 14:06 Blood Culture - Preliminary Blood Assessment and Plan (1) Febrile neutropenia Current Visit: Yes Status: Acute Priority: High Code(s): D70.9 - NEUTROPENIA, UNSPECIFIED; R50.81 - FEVER PRESENTING WITH CONDITIONS CLASSIFIED ELSEWHERE SNOMED Code(s): 308543660 (2) Breast cancer Current Visit: Yes Status: Acute Priority: High Code(s): C50.919 - MALIGNANT NEOPLASM OF UNSP SITE OF UNSPECIFIED FEMALE BREAST SNOMED Code(s): 950221416 Plan: Febrile neutropenia. -Pancultures neg 24 hours.Viral panel negative -Empiric antibiotics cont. -G-CSF given, able to be discontinued, WBC 4.8, ANC 2.9 -Infectious disease following -Cont Salt and soda -Clear liquid diet while severely neutropenic-advanced to full liquid -Cont supportive care Breast cancer -Diagnosis and treatment as described in consult -Patient is currently on adjuvant treatment -Plans for dose modification and addition of G-CSF with future treatments. This was reviewed with pt today -Treatment will be on hold until patient has recovered from her acute condition Doctor attests: I performed a history and physical examination of this patient, developed impression and plan of care. Discussed with dictator. I agree with dictators note, documented as a scribe.
[2024-07-14] MEDS: CHOLESTYRAMINE (WITH SUGAR) 4 GM PACKET PO SCH (15:59)
[2024-07-14 16:01] LABS: African American GFR (CKD) >90 (>60 ml/min/1.73 sqM); Non-African American GFR(CKD) 83 (>60 ml/min/1.73 sqM)
--- NOTE | 2024-07-14 16:55 | P.DS ---
Providers Date of admission: 07/12/24 15:16 Attending physician: Leslie Estrada Consults: 07/12/24 12:47 Consult Physician Routine Consulting Provider: Sher Hutson Consult Reason/Comments: fever, cancer Do you want consulting provider notified?: Already Contacted Consult Physician Routine Consulting Provider: Chucky Freidman Consult Reason/Comments: fever Do you want consulting provider notified?: Yes 07/13/24 10:20 Consult Physician Routine Consulting Provider: Sher Hutson Consult Reason/Comments: Leukopenia Do you want consulting provider notified?: Yes Primary care physician: Leslie [facility] Course: Diagnosis on discharge: 1. Neutropenia with fever 2. Breast cancer currently receiving chemotherapy. 3. History of essential hypertension 4. History of hyperlipidemia 5. History of diverticulitis with perforation 6. History of GERD Hospital course: Courtney Castellano, is a 73-year-old female patient who was sent to ER from oncology office with concerns of fever and leukopenia. Patient currently receiving chemotherapy for breast cancer and was at a follow-up appointment with her oncologist when she was noted to have a fever. Patient reports that she has had poor appetite nausea and chills at home denies any chest pain or shortness of breath. Denies cough or runny nose. Patient has a past medical history of atrial fibrillation, bilateral mastectomy, shingles, hyperlipidemia and diverticulitis with perforation. Chest x-ray completed showing no acute cardiopulmonary disease. EKG completed showing sinus tachycardia. Lab work completed showing white blood cell 0.6, lactic acid 1.8 UA negative. Influenza, COVID-19 and strep negative. At this time patient will be admitted. Blood culture ordered oncology and infectious disease services have been consulted. Patient started on IV vancomycin and IV Maxipime. Current vital signs temp 100.7, heart rate 18, blood pressure 111/57 with a pulse ox of 97% on room air. On 07/13/2024 patient is alert and oriented x 3 currently sitting in bed. Patient is complaining of some nausea. Patient denies chest pain or shortness of breath. Patient denies any urinary burning or frequency. Home medications have been resumed. Current vital signs temp 98.9, heart rate 105, blood pressure 104/66 with pulse ox of 98% on room air. Patient remains on IV vancomycin and IV Maxipime repeat labs ordered for a.m. On 07/14/2024 patient is alert and oriented x 3 currently sitting up in chair. Patient reports significant improvement with symptoms. Patient remains on IV Maxipime and IV vancomycin. Oncology and infectious disease services are following. Current vital signs temp 98.5, heart rate 93, respiratory rate 20, blood pressure 108/63 with a pulse ox of 96% on room air. Patient denies chest pain or shortness of breath. Patient denies nausea vomiting or diarrhea. Patient denies any urinary burning or frequency Patient was evaluated today by infectious disease she was cleared for discharge with a short course of Levaquin she was given a prescription for Levaquin 500 mg 1 daily for 5 days follow-up with oncology follow-up in the office in 2 to 3 days Plan - Discharge Summary New Discharge Prescriptions: New Levofloxacin [Levaquin] 500 mg PO DAILY 5 Days #5 tab Continue Metoprolol Tartrate [Lopressor] 25 mg PO BID HYDROcodone/APAP 10-325MG [[place] 10-325] 1 tab PO HS Ondansetron [Zofran] 4 - 8 mg PO Q6H PRN PRN Reason: Nausea And Vomiting Calcium Carbonate/Vitamin D3 [Calcium 600 mg-Vit D3 10 mcg (400 Unit)] 1 tab PO DAILY@1700 Simvastatin [Zocor] 20 mg PO HS Gabapentin [Neurontin] 300 mg PO BID Super B-Complex 1 tab PO DAILY@1700 Discharge Medication List Metoprolol Tartrate [Lopressor] 25 mg PO BID 01/24/20 [History] HYDROcodone/APAP 10-325MG [[place] 10-325] 1 tab PO HS 05/24/24 [History] Ondansetron [Zofran] 4 - 8 mg PO Q6H PRN 06/29/24 [History] Simvastatin [Zocor] 20 mg PO HS 06/29/24 [History] Calcium Carbonate/Vitamin D3 [Calcium 600 mg-Vit D3 10 mcg (400 Unit)] 1 tab PO DAILY@1700 07/12/24 [History] Gabapentin [Neurontin] 300 mg PO BID 07/12/24 [History] Super B-Complex 1 tab PO DAILY@1700 07/12/24 [History] Levofloxacin [Levaquin] 500 mg PO DAILY 5 Days #5 tab 07/14/24 [Rx] Follow up Appointment(s)/Referral(s): Leslie Estrada MD [Primary Care Provider] - 1-2 days
[2024-07-14 17:37] VITALS: BMI 24.5
--- NOTE | 2024-07-16 22:27 | CDI ---
Documentation Clarification Form Date: 07/16/2024 10:15:57 PM From: Josey Bowman Phone: Admit Date: 07/12/2024 03:16:00 PM Patient Name: Courtney Castellano Visit Number: [id number] Discharge Date: 07/14/2024 05:48:00 PM ATTENTION: The Clinical Documentation Specialists (CDI) and [facility] Coding Staff appreciate your assistance in clarifying documentation. Please respond to the clarification below the line at the bottom and electronically sign. The CDI & [facility] Coding staff will review the response and follow-up if needed. Please note: Queries are made part of the Legal Health Record. If you have any questions, please contact the author of this message via ITS. Doctor/Provider: Leslie Estrada There is documentation of Neutropenia with fever per Progress Notes. Additional clarification is requested. History/Risk Factors: 73yo F, on Chemo d/t Lt breast Cx w mets to lymph nodes, HTN, HLD, GERD, Hx diverticulitis with perf Clinical Indicators: Patient currently receiving chemotherapyforbreast cancerand was at afollow-upappointment with her oncologist when she was noted to have afever. Patient reports she has had poor appetitenauseaandchillsat homedenies anychest painorshortness of breath. Treatment: Pt remains on IV Maxipime and IV vancomycin. Oncology andinfectious diseaseservices are following. Current vital signs T 98. 5, HR 93, RR 20, BP108/63 with a PO 96% on room air. Patientdenieschest painorshortness of breath. Ptdeniesnausea vomitingordiarrhea and anyurinaryburningor frequency. Evaluated today byID and was cleared for discharge with a short course of Levaquin she was given a prescription for Levaquin 500 mg 1 daily for 5 daysfollow-upwith oncologyfollow-upin the office in 2 to 3 days Can you please clarify underlying causeof neutropenia? [ xxxx] Neutropenia due to chemotherapy [ ] Neutropenia due to (please specify): [ ] Other, please specify [ ] Unable to determine (Template Last Revised: July 2020) MTDD
== END 2024-07-14 17:48 | disposition home or self-care (01) | DRG 810 ==
LOC: EC 12:35 → 3SCARD 15:16 → 5NMEDONC 07-13 05:59
PROVIDERS: ADMIT Internal Medicine; ATTEND Internal Medicine
DX: D70.1 Agranulocytosis secondary to cancer chemotherapy (principal); C50.912 Malignant neoplasm of unspecified site of left female breast; I10 Essential (primary) hypertension; R50.81 Fever presenting with conditions classified elsewhere; E78.5 Hyperlipidemia, unspecified; T45.1X5A Adverse effect of antineoplastic and immunosuppressive drugs, initial encounter; K21.9 Gastro-esophageal reflux disease without esophagitis; Z79.899 Other long term (current) drug therapy; Z87.891 Personal history of nicotine dependence; Z90.13 Acquired absence of bilateral breasts and nipples; Z92.3 Personal history of irradiation; Z87.19 Personal history of other diseases of the digestive system; Z17.0 Estrogen receptor positive status [ER+]; Z17.21 Progesterone receptor positive status; Z17.32 Human epidermal growth factor receptor 2 negative status
CPT/HCPCS: 36415; 71046; 80053; 80202; 81003; 82565; 83605; 85025; 85610; 85730; 86140; 87040; 87502; 87635; 87651; 93005; 96361; 96365; 96366; 96367; 96368; 96372; 96375; 99285

== ENCOUNTER 2024-07-25 10:08 | Emergency (ER) | payer MEDICARE, OTHER ==
[2024-07-25 10:16] VITALS: RESP 18; TEMP 98.7
[2024-07-25 10:17] LABS: Glucose,Whole Blood 126 mg/dL (70-110)
--- NOTE | 2024-07-25 10:18 | ED ---
General Adult HPI - General Chief complaint: Syncope Stated complaint: syncope Time Seen by Provider: 07/25/24 10:10 Source: patient, EMS, RN notes reviewed, old records reviewed Mode of arrival: EMS Limitations: no limitations - History of Present Illness Initial comments: This is a 73-year-old female who comes into the emergency department after yuval dailey had a syncopal episode. Patient has a past medical history significant for breast cancer. Patient states she had chemotherapy last Thursday. Patient states she had a low white count. Patient states she was at the store started feeling lightheaded and then she passed out. EMS stated that she was in and out of consciousness and did hit the back of her head but she has no headache no neck pain she denies any chest pain palpitations difficulty breathing or shortness of breath. Patient states she has had no fever or chills recently. Patient denies any nausea or vomiting recently. Patient states she has occasional diarrhea ever since she had chemotherapy. Patient states currently lying flat she has no symptoms. - Related Data Home Medications Medication Instructions Recorded Confirmed Metoprolol Tartrate [Lopressor] 25 mg PO BID 01/24/20 07/25/24 HYDROcodone/APAP 10-325MG [[place] 1 tab PO HS 05/24/24 07/25/24 10-325] Ondansetron [Zofran] 4 - 8 mg PO Q6H PRN 06/29/24 07/25/24 Simvastatin [Zocor] 20 mg PO HS 06/29/24 07/25/24 Calcium Carbonate/Vitamin D3 1 tab PO DAILY@1700 07/12/24 07/25/24 [Calcium 600 mg-Vit D3 10 mcg (400 Unit)] Gabapentin [Neurontin] 300 mg PO BID 07/12/24 07/25/24 Super B-Complex 1 tab PO DAILY@1700 07/12/24 07/25/24 HYDROcodone/APAP 10-325MG [[place] 0.5 - 1 tab PO BID PRN 07/25/24 07/25/24 10-325] Allergies Allergy/AdvReac Type Severity Reaction Status Date / Time bee venom protein (honey bee) Allergy Anaphylaxis Verified 07/25/24 12:36 Review of Systems ROS Statement: Those systems with pertinent positive or pertinent negative responses have been documented in the HPI. ROS Other: All systems not noted in ROS Statement are negative. Past Medical History Past Medical History: Atrial Fibrillation, Cancer, Hyperlipidemia Additional Past Medical History / Comment(s): Do Not Use rt Arm for IV or BP- left breast CA with lumpectomy, cookie mastectomy 09/11/19 Diverticulitis w/ perforation, colostomy; reversal developed AFib w/ RVR, pulmonary edema post-op. Diverticulitis, shingles 07/2023 radiation chemo 2002, had echo History of Any Multi-Drug Resistant Organisms: None Reported Past Surgical History: Bowel Resection, Breast Surgery, Cholecystectomy, Tonsillectomy Additional Past Surgical History / Comment(s): L breast lumpectomy 2002. cookie mastectomy Gomez proc w/ Colostomy 09/11/19 and then reversed, Past Anesthesia/Blood Transfusion Reactions: Motion Sickness Additional Past Anesthesia/Blood Transfusion Reaction / Comment(s): Pt has never recieved blood. Past Psychological History: No Psychological Hx Reported Smoking Status: Former smoker Past Alcohol Use History: Occasional - Past Family History Father Family Medical History: Myocardial Infarction (NH) Additional Family Medical History / Comment(s): Father had a NH in his 60's, from a post op hip infection at age 73 yrs. No gallbladder disease. Mother Family Medical History: Eye Disorder, Hypertension Additional Family Medical History / Comment(s): Mother had glaucoma, at age 82 yrs. General Exam - General Exam Comments Initial Comments: GENERAL: Patient is well-developed and well-nourished. Patient is nontoxic and well- hydrated and is in no acute distress. ENT: Neck is soft and supple. No significant lymphadenopathy is noted. Oropharynx is clear. Moist mucous membranes. Neck has full range of motion without el iciting any pain. There is no area of trauma on the patient's head. Patient has known neck tenderness EYES: The sclera were anicteric and conjunctiva were pink and moist. Extraocular movements were intact and pupils were equal round and reactive to light. Eyelids were unremarkable. PULMONARY: Unlabored respirations. Good breath sounds bilaterally. No audible rales rhonchi or wheezing was noted. CARDIOVASCULAR: There is a regular rate and rhythm without any murmurs gallops or rubs. ABDOMEN: Soft and nontender with normal bowel sounds. SKIN: Skin is clear with no lesions or rashes and otherwise unremarkable. NEUROLOGIC: Patient is alert and oriented x3. Cranial nerves II through XII are grossly intact. Motor and sensory are also intact. Normal speech, volume and content. Symmetrical smile. MUSCULOSKELETAL: Normal extremities with adequate strength and full range of motion. No lower extremity swelling or edema. No calf tenderness. LYMPHATICS: No significant lymphadenopathy is noted PSYCHIATRIC: Normal psychiatric evaluation. Limitations: no limitations Course Vital Signs 07/25/24 07/25/24 07/25/24 10:10 12:25 12:34 Temperature 98.7 F Pulse Rate 72 65 70 Respiratory 18 18 18 Rate Blood Pressure 118/72 132/65 133/67 O2 Sat by Pulse 100 97 99 Oximetry Medical Decision Making - Medical Decision Making EKG is interpreted by myself but EKG shows a sinus rhythm at 60 bpm AL interval 149 QRS of 69 QT interval 389 QTc is 406. Patient's EKG shows no ST segment ovation or depression. Was pt. sent in by a medical professional or institution ([facility]iz, SCIENTIST ENGINEER, urgent care, hospital, or longterm...) When possible be specific @ -No Did you speak to anyone other than the patient for history (EMS, parent, family, police, friend...)? What history was obtained from this source @ -No Did you review nursing and triage notes (agree or disagree)? Why? @ -I reviewed and agree with nursing and triage notes Were old charts reviewed (outside hosp., previous admission, EMS record, old EKG, old radiological studies, urgent care reports/EKG's, longterm records)? Report findings @ -No old charts were reviewed Differential Diagnosis? @ -Differential Syncope: Valvular disease, hypertrophic cardiomyopathy, pulmonary embolism, tamponade, tachycardia, bradycardia, NH, hypovolemia, hemorrhage, dissection, anemia, intracranial hemorrhage, seizure, hypoglycemia, carbon monoxide poisoning, this is not meant to be an all-inclusive list. EKG interpreted by me (3pts min.). @ -As above X-rays interpreted by me (1pt min.). @ -Chest x-ray showed no acute abnormality CT interpreted by me (1pt min.). @ -CT of the brain showed no acute abnormality U/S interpreted by me (1pt. min.). @ -None done What testing was considered but not performed or refused? (CT, X-rays, U/S, labs)? Why? @ -None What meds were considered but not given or refused? Why? @ -None Did you discuss the management of the patient with other professionals (professionals i.e. , PA, SCIENTIST ENGINEER, lab, RT, psych nurse, social work manager, barista, teacher, veterinary medical officer, manager case management)? Give summary @ -No Was smoking cessation discussed for >3mins.? @ -No Was critical care preformed (if so, how long)? @ -No Were there social determinants of health that impacted care today? How? (Homelessness, low income, unemployed, alcoholism, drug addiction, transporta tion, low edu. Level, literacy, decrease access to med. care, [facility], rehab)? @ -No Was there de-escalation of care discussed even if they declined (Discuss DNR or withdrawal of care, Hospice)? DNR status @ -No What co-morbidities impacted this encounter? (DM, HTN, Smoking, COPD, CAD, Cancer, CVA, ARF, Chemo, Hep., AIDS, mental health diagnosis, sleep apnea, morbid obesity)? @ -None Was patient admitted / discharged? Hospital course, mention meds given and route, prescriptions, significant lab abnormalities, going to OR and other pertinent info. @ -Patient received significant IV fluids because she was orthostatic hypotensive when she arrived. Patient received a fluids lab work was within nor mal range. Patient was up and ambulatory without symptoms and felt good enough to go home. Undiagnosed new problem with uncertain prognosis? @ -No Drug Therapy requiring intensive monitoring for toxicity (Heparin, Nitro, Insulin, Cardizem)? @ -No Were any procedures done? @ -No Diagnosis/symptom? @ -Orthostatic hypotension Acute, or Chronic, or Acute on Chronic? @ -Acute Uncomplicated (without systemic symptoms) or Complicated (systemic symptoms)? @ -Complicated Side effects of treatment? @ -No Exacerbation, Progression, or Severe Exacerbation? @ -No Poses a threat to life or bodily function? How? (Chest pain, USA, NH, pneumonia, PE, COPD, DKA, ARF, appy, cholecystitis, CVA, Diverticulitis, Homicidal, Suicidal, threat to staff... and all critical care pts) @ -No - Lab Data Result diagrams: 07/25/24 11:00 07/25/24 11:00 Lab Results 03/24/25 03/24/25 03/24/25 Range/Units 10:15 11:00 11:00 WBC (3.8-10.6) k/uL RBC (3.80-5.40) m/uL Hgb (11.4-16.0) gm/dL Hct (34.0-46.0) % MCV (80.0-100.0) fL MCH (25.0-35.0) pg MCHC (31.0-37.0) g/dL RDW (11.5-15.5) % Plt Count (150-450) k/uL MPV Neutrophils % (Manual) % Band Neuts % (Manual) % Lymphocytes % (Manual) % Neutrophils # (Manual) (1.3-7.7) k/uL Lymphocytes # (Manual) (1.0-4.8) k/uL Nucleated RBCs (0-0) /100 WBC Manual Slide Review PT (10.0-12.5) sec INR (<1.2) APTT (22.0-30.0) sec Sodium 137 (137-145) mmol/L Potassium 4.5 (3.5-5.1) mmol/L Chloride 104 (98-107) mmol/L Carbon Dioxide 28 (22-30) mmol/L Anion Gap 5 mmol/L BUN 10 (7-17) mg/dL Creatinine 0.59 (0.52-1.04) mg/dL Est GFR (CKD-EPI)AfAm >90 (>60 ml/min/1.73 sqM) Est GFR (CKD-EPI)NonAf >90 (>60 ml/min/1.73 sqM) Glucose 121 H (74-99) mg/dL POC Glucose (mg/dL) 126 H (70-110) mg/dL POC Glu Marine Driller ID Keogestsylvia Tyra Calcium 9.1 (8.4-10.2) mg/dL Magnesium 2.0 (1.6-2.3) mg/dL Total Bilirubin 0.6 (0.2-1.3) mg/dL AST 17 (14-36) U/L ALT 11 (4-34) U/L Alkaline Phosphatase 78 (38-126) U/L Troponin I <0.012 (0.000-0.034) ng/mL Total Protein 5.6 L (6.3-8.2) g/dL Albumin 3.3 L (3.5-5.0) g/dL 07/25/24 07/25/24 Range/Units 11:00 11:00 WBC 1.3 L* (3.8-10.6) k/uL RBC 3.47 L (3.80-5.40) m/uL Hgb 9.8 L (11.4-16.0) gm/dL Hct 29.8 L (34.0-46.0) % MCV 85.7 (80.0-100.0) fL MCH 28.3 (25.0-35.0) pg MCHC 33.1 (31.0-37.0) g/dL RDW 14.4 (11.5-15.5) % Plt Count 168 D (150-450) k/uL MPV 7.8 Neutrophils % (Manual) 86 % Band Neuts % (Manual) 2 % Lymphocytes % (Manual) 12 % Neutrophils # (Manual) 1.10 L (1.3-7.7) k/uL Lymphocytes # (Manual) 0.16 L (1.0-4.8) k/uL Nucleated RBCs 0 (0-0) /100 WBC Manual Slide Review Performed PT 11.2 (10.0-12.5) sec INR 1.0 (<1.2) APTT 21.3 L (22.0-30.0) sec Sodium (137-145) mmol/L Potassium (3.5-5.1) mmol/L Chloride (98-107) mmol/L Carbon Dioxide (22-30) mmol/L Anion Gap mmol/L BUN (7-17) mg/dL Creatinine (0.52-1.04) mg/dL Est GFR (CKD-EPI)AfAm (>60 ml/min/1.73 sqM) Est GFR (CKD-EPI)NonAf (>60 ml/min/1.73 sqM) Glucose (74-99) mg/dL POC Glucose (mg/dL) (70-110) mg/dL POC Glu Marine Driller ID Calcium (8.4-10.2) mg/dL Magnesium (1.6-2.3) mg/dL Total Bilirubin (0.2-1.3) mg/dL AST (14-36) U/L ALT (4-34) U/L Alkaline Phosphatase (38-126) U/L Troponin I (0.000-0.034) ng/mL Total Protein (6.3-8.2) g/dL Albumin (3.5-5.0) g/dL Disposition Clinical Impression: Orthostatic hypotension, Syncope Disposition: HOME SELF-CARE Instructions (If sedation given, give patient instructions): Hypotension (ED) Is patient prescribed a controlled substance at d/c from ED?: No Referrals: Leslie Estrada MD [Primary Care Provider] - 1-2 days Time of Disposition: 12:58
[2024-07-25] MEDS: SODIUM CHLORIDE 0.9% 1,000 ML IV STA (10:30)
--- NOTE | 2024-07-25 11:14 | XR ---
EXAMINATION TYPE: XR chest 2V DATE OF EXAM: 07/25/2024 CLINICAL INDICATION: Female, 73 years old with history of Chest Pain, TECHNIQUE: Frontal and lateral views of the chest are obtained. COMPARISON: CXR from 13 days ago. FINDINGS: Stable right sided Mediport catheter. There is no suspicious focal air space opacity, ple ural effusion, or pneumothorax seen. The cardiac silhouette size is stable and within normal limits. The osseous structures are intact. IMPRESSION: No acute process. [facility], , 07/25/2024 11:11 AM
[2024-07-25 11:41] LABS: HCT 29.8 % (34.0-46.0); HGB 9.8 gm/dL (11.4-16.0); MCH 28.3 pg (25.0-35.0); MCHC 33.1 g/dL (31.0-37.0); MCV 85.7 fL (80.0-100.0); Mean Platelet Volume 7.8; RBC 3.47 m/uL (3.80-5.40); RDW 14.4 % (11.5-15.5)
[2024-07-25 11:44] LABS: ALT 11 U/L (4-34); AST 17 U/L (14-36); African American GFR (CKD) >90 (>60 ml/min/1.73 sqM); Albumin 3.3 g/dL (3.5-5.0); Alkaline Phosphatase 78 U/L (38-126); Anion Gap 5 mmol/L; Blood Urea Nitrogen 10 mg/dL (7-17); Calcium 9.1 mg/dL (8.4-10.2); Carbon Dioxide 28 mmol/L (22-30); Chloride 104 mmol/L (98-107); Glucose 121 mg/dL (74-99); Non-African American GFR(CKD) >90 (>60 ml/min/1.73 sqM); Potassium 4.5 mmol/L (3.5-5.1); Sodium 137 mmol/L (137-145); Total Bilirubin 0.6 mg/dL (0.2-1.3); Total Protein 5.6 g/dL (6.3-8.2); WBC 1.3 k/uL (3.8-10.6)
[2024-07-25 12:04] LABS: Band Neutrophils % 2 %; Lymphocytes # (M) 0.16 k/uL (1.0-4.8); Neutrophils % (M) 86 %; Nucleated Red Blood Cells 0 /100 WBC (0-0); Total Cells Counted 100
[2024-07-25 12:05] LABS: Prothrombin Time 11.2 sec (10.0-12.5)
[2024-07-25 12:08] LABS: Partial Thromboplastin Time 21.3 sec (22.0-30.0)
--- NOTE | 2024-07-25 12:29 | CT ---
EXAMINATION TYPE: CT brain wo con DATE OF EXAM: 07/25/2024 COMPARISON: CT brain August 17, 2023 CLINICAL INDICATION: Female, 73 years old with history of Fall, FALL SYNCOPE, HIT HEAD TECHNIQUE: CT scan of the head is performed without contrast. CT DLP: 1141.4 mGycm. Automated Exposure Control for Dose Reduction was Utilized. FINDINGS: There is no acute intracranial hemorrhage or midline shift identified. There is mild diff use ventricular and sulcal prominence redemonstrated. Hanks-white matter differentiation is fairly wel l-preserved. The calvarium is intact. The globes are intact and the visualized sinuses are clear. IMPRESSION: No acute intracranial hemorrhage or midline shift. No significant change from most recen t prior CT. [facility], , 07/25/2024 12:27 PM
[2024-07-25 12:36] VITALS: BP 133/67; PULSE 70
[2024-07-25 14:53] LABS: Platelet Count 168 k/uL (150-450)
== END 2024-07-25 13:38 | disposition home or self-care (01) ==
LOC: EC 10:08
DX: I95.1 Orthostatic hypotension (principal); Z87.891 Personal history of nicotine dependence; Z91.030 Bee allergy status
CPT/HCPCS: 36415; 70450; 71046; 80053; 83735; 84484; 85025; 85610; 85730; 93005; 96360; 99284

== ENCOUNTER → 2024-10-13 | Outpatient (CLI) | payer MEDICARE, OTHER ==
[2024-10-13 11:47] VITALS: BP 123/72; PULSE 68; RESP 16; TEMP 98.6
--- NOTE | 2024-10-13 12:03 | P.PN ---
Subjective Progress Note Date: 10/13/24 Principal diagnosis: Left breast invasive ductal carcinoma 2002 [id number] Second primary left breast T1 2021 Right axillary nodes tumor ER positive SD positive HER2 negative, 8 of 12 lymph nodes positive no specific cancer within the breast but positive intramammary lymph node The case was reviewed with her prior biopsy as well as the left mastectomy specimen these were felt to represent the same tumor, most likely the patient therefore appears to have stage IV disease with localization to multiple lymph nodes in the contralateral breast and axilla only. 10-13-24 Principal diagnosis: Left breast invasive ductal carcinoma 2002 [id number] second primary and left breast 2021 T1 Breast intramammary lymph node positive for tumor cells, positive right axillary lymph node Courtney is a 74-year-old female with a known left breast cancer diagnosed in 2002. This was T2 N1 M0 ER/SD negative, HER2 positive. She was treated with a/C x 4, and x-ray therapy to the left breast. She did well until she was noted on a screening mammogram to have some left breast calcifications with distortion in the upper outer quadrant of the left breast. She had a stereo biopsy at [facility] and 02-27-2022. This revealed multifocal microinvasive carcinoma. This was ER SD positive and HER2 negative. She subsequently underwent a mastectomy with attempted sentinel node biopsy on 05-15-2022. The final pathology showed invasive ductal carcinoma largest focus was 9 mm and DCIS 1.2 cm. There was a separate focus of invasive cancer less than 1 mm and less than 1 mm from the skin surface. No nodes were identified in the specimen. Oncotype testing was done time and was low. She had a breast next test done which revealed a variant of unknown significance of the BRCA2 gene. She was started on anastrozole in June 2022. The patient then was noted to have a suspicious lesion on her right breast in March 2024. This was a 1.3 cm mass at 8:00 and another 1.2 cm mass at 12:00. She underwent a core biopsy of both of these on 03-09-2024. The 8:00 lesion revealed isolated cancer cells in a lymph node. The ER staining was negative. The 12:00 lesion was a sclerotic fibroadenoma. The patient then had an MRI of the breast as well as a PET scan. MRI confirmed malignant appearance of the biopsy lesion at 8:00 and also revealed a suspicious lymph node with cortical thickening in the right axilla. The PET scan showed borderline uptake in the right axillary nodes and mild uptake in the 8:00 lesion in the breast. There was no evidence of metastatic disease. Biopsy of the right axillary node on 03-24-2024 revealed macro metastatic ductal carcinoma. This tumor was ER positive SD positive and HER2 negative. The patient's case was discussed at tumor board on 03-29-2024. It was represented at tumor board on 01 08 25. Her case has been extensively discussed and reviewed with Dr. Hutson. After review of the case it was felt that we could not confirm whether the lesion in the right breast was a metastatic deposit or primary within the breast. Therefore the recommendation was for a right breast mastectomy, right needle localization of the lymph node of concern. Right sentinel node injection. Right sentinel node biopsy. Possible right axillary node dissection. She underwent the right mastectomy and SNB and right localization and resection of node on 05-26-24. Pathology no cancer in the breast, 3 of 4 lymph nodes in the right breast were positive. A total of 12 nodes were removed and 8 were positive for tumor. It was uncertain if this represented a rare occurrence of contralateral right breast intramammary cancer and right axillary metastatic disease originating from the left breast primary. Right axillary nodes tumor ER positive SD positive HER2 negative, 8 of 12 lymph nodes positive no specific cancer within the breast but positive intramammary lymph node The case was reviewed with her prior biopsy as well as the left mastectomy specimen these were felt to represent the same tumor, most likely the patient therefore appears to have stage IV disease with localization to multiple lymph nodes in the contralateral breast and axilla only. She did have chemotherapy and developed sepsis and was hospitalized on 07-12-24. Completed course of chemotherapy with Dr. Hutson. She was to start taxol. Note Dr. Hutson 09-22-24 reviewed/ completed course of chemo and to start Taxol. She is complaining of knee and ankle pain with this treatment. After she completes the Taxol she will be recommended to undergo radiation therapy and then most likely hormone therapy 2 cups of coffee several times a week Nicotine: None stopped 35 years ago used to smoke a half a pack per day Chocolate: Daily control pills: Negative Hormones: Negative Family history: Maternal aunt: Breast cancer Hormonal history: Menarche: 14 G1, P1, age at : 37, breast-fed: No Menopause: 51 Surgical history: Cholecystectomy Colon resection perforated diverticulitis Left breast lumpectomy and sentinel node possible axillary node dissection Colostomy reversal Right breast biopsy in the operating room several times Left breast mastectomy Medical history: Glaucoma Atrial fibrillation off blood thinners High cholesterol Shingles Social history: Nicotine: As above Alcohol: With dinner several times a week Drugs: Negative Was: Constitutional: Denies chills denies fever HEENT: Negative Breast: As above Cardiovascular: Atrial Fibrillation Respiratory: Negative GI: Reports constipation reports diarrhea : Denies dysuria denies hematuria Menstruation: Postmenopausal Musculoskeletal: Heel spur, myalgias Integument: Negative Neurologic: Negative Psychiatric: Negative Endocrine: Negative Objective - Constitutional General appearance: Present: cooperative - EENT Eyes: Present: EOMI ENT: Present: hearing grossly normal - Neck Neck: Present: normal ROM - Respiratory Respiratory: bilateral: CTA - Cardiovascular Rhythm: regular Heart sounds: normal: S1, S2 - Integumentary Integumentary: Present: normal turgor - Musculoskeletal Musculoskeletal: Present: gait normal - Psychiatric Psychiatric: Present: A&O x's 3, appropriate affect, intact judgment & insight - Additional findings Additional findings: Chest wall evaluation: Right chest wall no evidence of any recurrent cancer Right axilla: No adenopathy of concern Left chest wall: No evidence of any recurrent cancer Left axilla: No adenopathy of concern Assessment and Plan Assessment: Impression: Left breast invasive ductal carcinoma 2002 [id number] second primary and left breast 2021 T1 Breast intramammary lymph node positive for tumor cells, positive right axillary lymph node/consider stage IV disease Plan: Patient is completing a course of chemotherapy with Dr. Hutson Follow-up radiation therapy Follow-up here in 4 months Follow-up sooner any questions or concerns CC: Dr. Estrada
== END ==
LOC: WWCWWP 11:26
PROVIDERS: ATTEND Surgery
DX: N63.21 Unspecified lump in the left breast, upper outer quadrant (principal); C50.412 Malignant neoplasm of upper-outer quadrant of left female breast; Z87.891 Personal history of nicotine dependence; Z91.030 Bee allergy status

== ENCOUNTER 2024-11-15 06:41 | Emergency (ER) | payer MEDICARE, OTHER ==
[2024-11-15 07:30] LABS: Basophils # (A) 0.05 10*3/uL (0.00-0.10); Basophils % (A) 0.3 %; Eosinophils # (A) 0.13 10*3/uL (0.04-0.35); Eosinophils % (A) 0.9 %; HCT 34.6 % (37.2-46.3); HGB 11.7 g/dL (12.0-15.0); Lymphocytes # (A) 0.89 10*3/uL (0.90-5.00); Lymphocytes % (A) 6.2 %; MCH 30.3 pg (27.0-32.0); MCHC 33.8 g/dL (32.0-37.0); MCV 89.6 fL (80.0-97.0); Monocytes # (A) 0.95 10*3/uL (0.20-1.00); Monocytes % (A) 6.6 %; Neutrophils # (A) 11.90 10*3/uL (1.80-7.70); Neutrophils % (A) 83.0 %; Platelet Count 201 10*3/uL (140-440); RBC 3.86 10*6/uL (4.10-5.20); RDW 13.0 % (11.5-14.5); WBC 14.35 10*3/uL (4.50-10.00)
[2024-11-15 07:46] LABS: ALT 17 U/L (4-34); AST 26 U/L (14-36); African American GFR (CKD) >90 (>60 ml/min/1.73 sqM); Albumin 4.3 g/dL (3.5-5.0); Alkaline Phosphatase 118 U/L (38-126); Anion Gap 10 mmol/L; Blood Urea Nitrogen 5 mg/dL (7-17); Calcium 10.5 mg/dL (8.4-10.2); Carbon Dioxide 23 mmol/L (22-30); Chloride 106 mmol/L (98-107); Glucose 120 mg/dL (74-99); Magnesium 1.8 mg/dL (1.6-2.3); Non-African American GFR(CKD) >90 (>60 ml/min/1.73 sqM); Potassium 3.8 mmol/L (3.5-5.1); Sodium 139 mmol/L (137-145); Total Protein 6.6 g/dL (6.3-8.2)
[2024-11-15] MEDS: SODIUM CHLORIDE 0.9% 1,000 ML IV STA (08:12)
[2024-11-15] MEDS: ONDANSETRON 4 MG/2 ML VIAL IVP STA (08:12)
--- NOTE | 2024-11-15 08:12 | ED ---
General Adult HPI - General Chief complaint: Dizziness Stated complaint: Nausea, Diarrhea, Dizziness Time Seen by Provider: 11/15/24 06:56 Source: patient, RN notes reviewed Mode of arrival: ambulatory Limitations: no limitations - History of Present Illness Initial comments: 74-year-old female presents emergency department complaint of nausea vomiting d ehydration dizziness. Patient states that she did her last of 8 chemo treatments for breast cancer on Thursday. Patient states normally by Thursday she feels better but states she has not felt better she just feels lightheaded feel like she may pass out feels very nauseous denies any fevers chills no complaints of shortness of breath no chest pain no complaints of headache no focal weakness. - Related Data Home Medications Medication Instructions Recorded Confirmed Metoprolol Tartrate [Lopressor] 25 mg PO BID 01/24/20 11/15/24 HYDROcodone/APAP 10-325MG [[place] 1 tab PO TID PRN 05/24/24 11/15/24 10-325] Simvastatin [Zocor] 20 mg PO DAILY 06/29/24 11/15/24 Gabapentin [Neurontin] 300 mg PO BID 07/12/24 11/15/24 Anastrozole [Arimidex] 1 mg PO DAILY 11/15/24 11/15/24 Calcium Carbonate [Calcium] 600 mg PO DAILY 11/15/24 11/15/24 Cyanocobalamin (Vitamin B-12) 1,000 mcg PO DAILY 11/15/24 11/15/24 [Vitamin B-12] Multivitamins, Thera [Multivitamin 1 tab PO DAILY 11/15/24 11/15/24 (formulary)] Vitamin B Complex 1 cap PO DAILY 11/15/24 11/15/24 Allergies Allergy/AdvReac Type Severity Reaction Status Date / Time bee venom protein (honey bee) Allergy Anaphylaxis Verified 11/15/24 11:07 Review of Systems ROS Statement: Those systems with pertinent positive or pertinent negative responses have been documented in the HPI. ROS Other: All systems not noted in ROS Statement are negative. Past Medical History Past Medical History: Atrial Fibrillation, Cancer, Hyperlipidemia Additional Past Medical History / Comment(s): Do Not Use rt Arm for IV or BP- left breast CA with lumpectomy, cookie mastectomy 09/11/19 Diverticulitis w/ perforation, colostomy; reversal developed AFib w/ RVR, pulmonary edema post-op. Diverticulitis, shingles 07/2023 radiation chemo 2002, had echo History of Any Multi-Drug Resistant Organisms: None Reported Past Surgical History: Bowel Resection, Breast Surgery, Cholecystectomy, Tonsil lectomy Additional Past Surgical History / Comment(s): L breast lumpectomy 2002. cookie mastectomy Gomez proc w/ Colostomy 09/11/19 and then reversed, Past Anesthesia/Blood Transfusion Reactions: Motion Sickness Additional Past Anesthesia/Blood Transfusion Reaction / Comment(s): Pt has never recieved blood. Past Psychological History: No Psychological Hx Reported Smoking Status: Former smoker Past Alcohol Use History: Rare Past Drug Use History: None Reported - Past Family History Father Family Medical History: Myocardial Infarction (OK) Additional Family Medical History / Comment(s): Father had a OK in his 60's, from a post op hip infection at age 73 yrs. No gallbladder disease. Mother Family Medical History: Eye Disorder, Hypertension Additional Family Medical History / Comment(s): Mother had glaucoma, at age 82 yrs. General Exam Limitations: no limitations General appearance: alert, in no apparent distress Head exam: Present: atraumatic, normocephalic, normal inspection Eye exam: Present: normal appearance, PERRL, EOMI. Absent: scleral icterus, conjunctival injection, periorbital swelling ENT exam: Present: normal exam, mucous membranes moist Neck exam: Present: normal inspection, full ROM. Absent: tenderness, meningismus, lymphadenopathy Respiratory exam: Present: normal lung sounds bilaterally. Absent: respiratory distress, wheezes, rales, rhonchi, stridor Cardiovascular Exam: Present: regular rate, normal rhythm, normal heart sounds. Absent: systolic murmur, diastolic murmur, rubs, gallop, clicks Neurological exam: Present: alert, oriented X3, CN II-XII intact Course Vital Signs 11/15/24 11/15/24 11/15/24 06:43 08:22 09:41 Temperature 97.9 F Pulse Rate 100 88 82 Respiratory 18 12 17 Rate Blood Pressure 137/79 139/78 127/65 O2 Sat by Pulse 100 99 97 Oximetry 11/15/24 12:08 Temperature 98.7 F Pulse Rate 86 Respiratory 16 Rate Blood Pressure 136/75 O2 Sat by Pulse 99 Oximetry EKG Findings - EKG Comments: EKG Findings:: EKG performed at 6: 51 sinus tachycardia with a rate of 102 MD 122 QRS 82 QT/QTc 362/421 - EKG Results: EKG: interpreted by CURLYD Medical Decision Making - Medical Decision Making Was pt. sent in by a medical professional or institution (, JOHN, AUTHORIZATION NURSE, urgent care, hospital, or assisted...) When possible be specific @ -No Did you speak to anyone other than the patient for history (EMS, parent, family, police, friend...)? What history was obtained from this source @ -No Did you review nursing and triage notes (agree or disagree)? Why? @ -I reviewed and agree with nursing and triage notes Were old charts reviewed (outside hosp., previous admission, EMS record, old EKG, old radiological studies, urgent care reports/EKG's, assisted records)? Report findings @ -No old charts were reviewed Differential Diagnosis (chest pain, altered mental status, abdominal pain women, abdominal pain men, vaginal bleeding, weakness, fever, dyspnea, syncope, headache, dizziness, GI bleed, back pain, seizure, CVA, palpatations, mental health, musculoskeletal)? @ -Differential Weakness: Hypoglycemia, shock, sepsis, hyponatremia, anemia, infection, OK, ETOH, adverse medicine reaction, overdose, stroke, this is not meant to be an all-inclusive list. EKG interpreted by me (3pts min.). @ -As above X-rays interpreted by me (1pt min.). @ -None done CT interpreted by me (1pt min.). @ -None done U/S interpreted by me (1pt. min.). @ -None done What testing was considered but not performed or refused? (CT, X-rays, U/S, labs)? Why? @ -None What meds were considered but not given or refused? Why? @ -None Did you discuss the management of the patient with other professionals (professionals i.e. JOHN Paiz, AUTHORIZATION NURSE, lab, RT, psych nurse, dialysis social worker, trial lawyer, teacher, major gifts officer, casework supervisor)? Give summary @ -No Was smoking cessation discussed for >3mins.? @ -No Was critical care preformed (if so, how long)? @ -No Were there social determinants of health that impacted care today? How? (Homelessness, low income, unemployed, alcoholism, drug addiction, transportation, low edu. Level, literacy, decrease access to med. care, custodial, rehab)? @ -No Was there de-escalation of care discussed even if they declined (Discuss DNR or withdrawal of care, Hospice)? DNR status @ -No What co-morbidities impacted this encounter? (DM, HTN, Smoking, COPD, CAD, Cancer, CVA, ARF, Chemo, Hep., AIDS, mental health diagnosis, sleep apnea, mo rbid obesity)? @ -None Was patient admitted / discharged? Hospital course, mention meds given and ro marii, prescriptions, significant lab abnormalities, going to OR and other pertinent info. @ -Discharge patient presented for generalized weakness, not feeling well after chemo treatment. She felt great improved after IV fluids and antiemetics. She was updated on lab results showing mildly elevated troponin. Recommended inpatient evaluation patient states that she has been feeling improved and wa nted to be discharged. Repeat troponin was less than initial troponin. She still feels comfortable with discharge strict return parameters discussed. Undiagnosed new problem with uncertain prognosis? @ -No Drug Therapy requiring intensive monitoring for toxicity (Heparin, Nitro, Insulin, Cardizem)? @ -No Were any procedures done? @ -No Diagnosis/symptom? @ -Weakness, nausea, diarrhea status post chemo, dehydration Acute, or Chronic, or Acute on Chronic? @ -Acute Uncomplicated (without systemic symptoms) or Complicated (systemic symptoms)? @ -Complicated Side effects of treatment? @ -No Exacerbation, Progression, or Severe Exacerbation? @ -No Poses a threat to life or bodily function? How? (Chest pain, USA, OK, pneumonia, PE, COPD, DKA, ARF, appy, cholecystitis, CVA, Diverticulitis, Homicidal, Suicidal, threat to staff... and all critical care pts) @ -No - Lab Data Result diagrams: 11/15/24 07:11/15/24 07:23 Lab Results 11/15/24 11/15/24 11/15/24 Range/Units 07:23 07: 07: WBC 14.35 H (4.50-10.00) 10*3/uL RBC 3.86 L (4.10-5.20) 10*6/uL Hgb 11.7 L (12.0-15.0) g/dL Hct 34.6 L (37.2-46.3) % MCV 89.6 (80.0-97.0) fL MCH 30.3 (27.0-32.0) pg MCHC 33.8 (32.0-37.0) g/dL Plt Count 201 (140-440) 10*3/uL MPV 9.9 (9.5-12.2) fL Immature Gran % (Auto) 3.0 % Neutrophils % 83.0 % Lymphocytes % 6.2 % Monocytes % 6.6 % Eosinophils % 0.9 % Basophils % 0.3 % Immature Gran # 0.43 H (0.00-0.04) 10*3/uL Neutrophils # 11.90 H (1.80-7.70) 10*3/uL Lymphocytes # 0.89 L (0.90-5.00) 10*3/uL Monocytes # 0.95 (0.20-1.00) 10*3/uL Eosinophils # 0.13 (0.04-0.35) 10*3/uL Basophils # 0.05 (0.00-0.10) 10*3/uL Manual Slide Review Performed Toxic Granulation Present Sodium 139 (137-145) mmol/L Potassium 3.8 (3.5-5.1) mmol/L Chloride 106 (98-107) mmol/L Carbon Dioxide 23 (22-30) mmol/L Anion Gap 10 mmol/L BUN 5 L (7-17) mg/dL Creatinine 0.56 (0.52-1.04) mg/dL Est GFR (CKD-EPI)AfAm >90 (>60 ml/min/1.73 sqM) Est GFR (CKD-EPI)NonAf >90 (>60 ml/min/1.73 sqM) Glucose 120 H (74-99) mg/dL Plasma Lactic Acid Bereket 1.3 (0.7-2.0) mmol/L Calcium 10.5 H (8.4-10.2) mg/dL Magnesium 1.8 (1.6-2.3) mg/dL Total Bilirubin 0.7 (0.2-1.3) mg/dL AST 26 (14-36) U/L ALT 17 (4-34) U/L Alkaline Phosphatase 118 (38-126) U/L Troponin I (0.000-0.034) ng/mL Total Protein 6.6 (6.3-8.2) g/dL Albumin 4.3 (3.5-5.0) g/dL Urine Color Urine Appearance (Clear) Urine pH (5.0-8.0) Ur Specific [place] (1.001-1.035) Urine Protein (Negative) Urine Glucose (UA) (Negative) Urine Ketones (Negative) Urine Blood (Negative) Urine Nitrite (Negative) Urine Bilirubin (Negative) Urine Urobilinogen (<2.0) mg/dL Ur Leukocyte Esterase (Negative) Urine RBC (0-5) /hpf Urine WBC (0-5) /hpf Ur Squamous Epith Cells (0-4) /hpf Urine Bacteria (None) /hpf Urine Mucus (None) /hpf 11/15/24 11/15/24 11/15/24 Range/Units 07:23 09:35 10:22 WBC (4.50-10.00) 10*3/uL RBC (4.10-5.20) 10*6/uL Hgb (12.0-15.0) g/dL Hct (37.2-46.3) % MCV (80.0-97.0) fL MCH (27.0-32.0) pg MCHC (32.0-37.0) g/dL Plt Count (140-440) 10*3/uL MPV (9.5-12.2) fL Immature Gran % (Auto) % Neutrophils % % Lymphocytes % % Monocytes % % Eosinophils % % Basophils % % Immature Gran # (0.00-0.04) 10*3/uL Neutrophils # (1.80-7.70) 10*3/uL Lymphocytes # (0.90-5.00) 10*3/uL Monocytes # (0.20-1.00) 10*3/uL Eosinophils # (0.04-0.35) 10*3/uL Basophils # (0.00-0.10) 10*3/uL Manual Slide Review Toxic Granulation Sodium (137-145) mmol/L Potassium (3.5-5.1) mmol/L Chloride (98-107) mmol/L Carbon Dioxide (22-30) mmol/L Anion Gap mmol/L BUN (7-17) mg/dL Creatinine (0.52-1.04) mg/dL Est GFR (CKD-EPI)AfAm (>60 ml/min/1.73 sqM) Est GFR (CKD-EPI)NonAf (>60 ml/min/1.73 sqM) Glucose (74-99) mg/dL Plasma Lactic Acid Bereket (0.7-2.0) mmol/L Calcium (8.4-10.2) mg/dL Magnesium (1.6-2.3) mg/dL Total Bilirubin (0.2-1.3) mg/dL AST (14-36) U/L ALT (4-34) U/L Alkaline Phosphatase (38-126) U/L Troponin I 0.043 H* 0.041 H* (0.000-0.034) ng/mL Total Protein (6.3-8.2) g/dL Albumin (3.5-5.0) g/dL Urine Color Colorless Urine Appearance Clear (Clear) Urine pH 8.0 (5.0-8.0) Ur Specific [place] 1.008 (1.001-1.035) Urine Protein Negative (Negative) Urine Glucose (UA) Negative (Negative) Urine Ketones 1+ H (Negative) Urine Blood Negative (Negative) Urine Nitrite Negative (Negative) Urine Bilirubin Negative (Negative) Urine Urobilinogen <2.0 (<2.0) mg/dL Ur Leukocyte Esterase Trace H (Negative) Urine RBC 1 (0-5) /hpf Urine WBC 5 (0-5) /hpf Ur Squamous Epith Cells <1 (0-4) /hpf Urine Bacteria Rare H (None) /hpf Urine Mucus Rare H (None) /hpf Disposition Clinical Impression: Lightheadedness, Dehydration, Chemotherapy induced nausea and vomiting Disposition: HOME SELF-CARE Condition: Stable Instructions (If sedation given, give patient instructions): Dizziness (ED) Additional Instructions: please return to the Emergency Department if symptoms worsen or any other concerns. Is patient prescribed a controlled substance at d/c from ED?: No Referrals: Leslie Estrada MD [Primary Care Provider] - 1-2 days Time of Disposition: 11:33
[2024-11-15 08:17] LABS: Toxic Granulation Present
[2024-11-15 09:40] LABS: Bacteria,Urine Rare /hpf; Bilirubin,Urine Negative (Negative); Blood,Urine Negative (Negative); Color,Urine Colorless; Glucose,Urine (UA) Negative (Negative); Ketones,Urine 1+ (Negative); Leukocyte Esterase,Urine Trace (Negative); Mucus,Urine Rare /hpf; Nitrite,Urine Negative (Negative); PH, Urine 8.0 (5.0-8.0); Protein,Urine Negative (Negative); RBC,Urine 1 /hpf (0-5); Specific Gravity,Urine 1.008 (1.001-1.035); Squamous Epithelial Cell,Urine <1 /hpf (0-4); Urobilinogen,Urine <2.0 mg/dL (<2.0); WBC,Urine 5 /hpf (0-5)
[2024-11-15] MEDS: SODIUM CHLORIDE 0.9% 1,000 ML IV ONE (11:30)
[2024-11-15 12:17] VITALS: BP 136/75; PULSE 86; RESP 16; TEMP 98.7
== END 2024-11-15 12:17 | disposition home or self-care (01) ==
LOC: EC 06:41
DX: R42 Dizziness and giddiness (principal); E86.0 Dehydration; R00.0 Tachycardia, unspecified; T45.1X5A Adverse effect of antineoplastic and immunosuppressive drugs, initial encounter; Z87.891 Personal history of nicotine dependence; Z51.11 Encounter for antineoplastic chemotherapy; Z91.030 Bee allergy status
CPT/HCPCS: 99284; 96374; 96375; 96361; 36415; 93005; 80053; 83605; 83735; 84484; 85025; 81001; J2405; J1642

== ENCOUNTER → 2024-12-01 | Outpatient (CLI) | payer MEDICARE, OTHER ==
[2024-12-01 09:49] VITALS: BP 104/69; PULSE 65; RESP 17; TEMP 97.6
--- NOTE | 2024-12-01 09:57 | P.PN ---
Subjective Progress Note Date: 12/01/24 Principal diagnosis: Left breast invasive ductal carcinoma 2002 [id number] Second primary left breast T1 2021 surgery 2024: Right axillary nodes tumor ER positive WA positive HER2 negative, 8 of 12 lymph nodes positive no specific cancer within the breast but positive intramammary lymph node The case was reviewed with her prior biopsy as well as the left mastectomy specimen these were felt to represent the same tumor, most likely the patient therefore appears to have stage IV disease with localization to multiple lymph nodes in the contralateral breast and axilla only. 12-01-24 Principal diagnosis: Left breast invasive ductal carcinoma 2002 [id number] Second primary left breast T1 2021 surgery 2024: Right axillary nodes tumor ER positive WA positive HER2 negative, 8 of 12 lymph nodes positive no specific cancer within the breast but positive intramammary lymph node The case was reviewed with her prior biopsy as well as the left mastectomy specimen these were felt to represent the same tumor, most likely the patient therefore appears to have stage IV disease with localization to multiple lymph nodes in the contralateral breast and axilla only. Left breast invasive ductal carcinoma 2002 [id number] second primary and left breast 2021 T1 Breast intramammary lymph node positive for tumor cells, positive right axillary lymph node Courtney is a 74-year-old female with a known left breast cancer diagnosed in 2002. This was T2 N1 M0 ER/WA negative, HER2 positive. She was treated with a/C x 4, and x-ray therapy to the left breast. She did well until she was noted on a screening mammogram to have some left breast calcifications with distortion in the upper outer quadrant of the left breast. She had a stereo biopsy at [facility] and 02-27-2022. This revealed multifocal microinvasive carcinoma. This was ER WA positive and HER2 negative. She subsequently underwent a mastectomy with attempted sentinel node biopsy on 05-15-2022. The final pathology showed invasive ductal carcinoma largest focus was 9 mm and DCIS 1.2 cm. There was a separate focus of invasive cancer less than 1 mm and less than 1 mm from the skin surface. No nodes were identified in the specimen. Oncotype testing was done time and was low. She had a breast next test done which revealed a variant of unknown significance of the BRCA2 gene. She was started on anastrozole in June 2022. The patient then was noted to have a suspicious lesion on her right breast in March 2024. This was a 1.3 cm mass at 8:00 and another 1.2 cm mass at 12:00. She underwent a core biopsy of both of these on 03-09-2024. The 8:00 lesion revealed isolated cancer cells in a lymph node. The ER staining was negative. The 12:00 lesion was a sclerotic fibroadenoma. The patient then had an MRI of the breast as well as a PET scan. MRI confirmed malignant appearance of the biopsy lesion at 8:00 and also revealed a suspicious lymph node with cortical thickening in the right axilla. The PET scan showed borderline uptake in the right axillary nodes and mild uptake in the 8:00 lesion in the breast. There was no evidence of metastatic disease. Biopsy of the right axillary node on 03-24-2024 revealed macro metastatic ductal carcinoma. This tumor was ER positive WA positive and HER2 negative. The patient's case was discussed at tumor board on 03-29-2024. It was represented at tumor board on 01 08 25. Her case has been extensively discussed and reviewed with Dr. Hutson. After review of the case it was felt that we could not confirm whether the lesion in the right breast was a metastatic deposit or primary within the breast. Therefore the recommendation was for a right breast mastectomy, right needle localization of the lymph node of concern. Right sentinel node injection. Right sentinel node biopsy. Possible right axillary node dissection. She underwent the right mastectomy and SNB and right localization and resection of node on 05-26-24. Pathology no cancer in the breast, 3 of 4 lymph nodes in the right breast were positive. A total of 12 nodes were removed and 8 were positive for tumor. It was uncertain if this represented a rare occurrence of contralateral right breast intramammary cancer and right axillary metastatic disease originating from the left breast primary. Right axillary nodes tumor ER positive WA positive HER2 negative, 8 of 12 lymph nodes positive no specific cancer within the breast but positive intramammary lymph node The case was reviewed with her prior biopsy as well as the left mastectomy specimen these were felt to represent the same tumor, most likely the patient therefore appears to have stage IV disease with localization to multiple lymph nodes in the contralateral breast and axilla only. She did have chemotherapy and developed sepsis and was hospitalized on 07-12-24. Completed course of chemotherapy with Dr. Hutson. She was to start taxol. Note Dr. Hutson 09-22-24 completed course of chemo and to start Taxol. Note Dr. Hutson 11-02-24 reviewed completed chemotherapy on 09-08-24; has now completed 3 0f 4 courses of Taxol, she than will have radiation followed by further hormonal therapy and a CDK 4/6 inhibitor prescribed gabapentene for neruopathy She is hoarse from the chemotherapy, and it hasn't changed for three weeks; it came slowly and is worse if she is stressed. It is not painful. At this time she does have some discomfort in her lower back which is chronic in nature and had not changed over the past 3 years. The joint pain she was experiencing with the chemotherapy has resolved. 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 2 cups of coffee several times a week Nicotine: None stopped 35 years ago used to smoke a half a pack per day Chocolate: Daily control pills: Negative Hormones: Negative Family history: Maternal aunt: Breast cancer Hormonal history: Menarche: 14 G1, P1, age at : 37, breast-fed: No Menopause: 51 Surgical history: Cholecystectomy Colon resection perforated diverticulitis Left breast lumpectomy and sentinel node possible axillary node dissection Colostomy reversal Right breast biopsy in the operating room several times Left breast mastectomy right mastectomy with axillary node resection port- cat placement Medical history: Glaucoma Atrial fibrillation off blood thinners High cholesterol Shingles Social history: Nicotine: As above Alcohol: With dinner several times a week Drugs: Negative Was: Constitutional: Denies chills denies fever HEENT: Negative Breast: As above Cardiovascular: Atrial Fibrillation Respiratory: Negative GI: Reports constipation reports diarrhea : Denies dysuria denies hematuria Menstruation: Postmenopausal Musculoskeletal: Heel spur, myalgias Integument: Negative Neurologic: Negative Psychiatric: Negative Endocrine: Negative Objective - Constitutional General appearance: Present: cooperative - EENT Eyes: Present: EOMI ENT: Present: hearing grossly normal - Neck Neck: Present: normal ROM - Respiratory Respiratory: bilateral: CTA - Cardiovascular Rhythm: regular Heart sounds: normal: S1, S2 - Integumentary Integumentary: Present: normal turgor - Musculoskeletal Musculoskeletal: Present: gait normal - Psychiatric Psychiatric: Present: A&O x's 3, appropriate affect, intact judgment & insight - Additional findings Additional findings: Chest wall evaluation: Right chest wall no evidence of any recurrent cancer Right axilla: No adenopathy of concern Left chest wall: No evidence of any recurrent cancer Left axilla: No adenopathy of concern Assessment and Plan Assessment: Impression: Left breast invasive ductal carcinoma 2002 [id number]+ second primary and left breast 2021 T1 Breast intramammary lymph node positive for tumor cells, positive right axillary lymph node/consider stage IV disease Completed chemotherapy Is following up with radiation therapy Probable hormonal therapy after radiation therapy with a CD46 inhibitor as well Recent onset of hoarseness Plan: appointment with ENT; new onset hoarseness Follow-up radiation therapy continue to follow with medical oncology Follow-up here in 4 months Follow-up sooner any questions or concerns CC: Dr. Estrada
== END ==
LOC: WWCWWP 09:26
PROVIDERS: ATTEND Surgery
DX: C50.912 Malignant neoplasm of unspecified site of left female breast (principal); Z17.31 Human epidermal growth factor receptor 2 positive status; Z91.030 Bee allergy status; Z87.891 Personal history of nicotine dependence